=== PATIENT | female | born 1945 | race Caucasian/White ===

== ENCOUNTER 2020-01-20 12:54 | Outpatient (REF) | payer MEDICARE, OTHER, SELFPAY ==
[2020-01-20 14:24] LABS: Hemoglobin 12.5 g/dl (12.0-16.0); Mean Corpuscular HGB Conc 32.9 g/dl (31.0-35.0); Mean Corpuscular Hemoglobin 30.6 pg (27.0-33.0); Mean Corpuscular Volume 93.1 fL (80-98); Mean Platelet Volume 10.7 fL (9.4-12.3); Platelet Count 264 X10*3/uL (160-400); Red Blood Count 4.08 X10*6/uL (4.20-5.50); Red Cell Distribution Width 12.6 % (11.0-16.0); White Blood Count 7.8 X10*3/uL (4.8-10.8)
[2020-01-20 15:11] LABS: Alanine Aminotransferase 57 U/L (0-31); Albumin Level 4.2 g/dL (3.5-5.0); Alkaline Phosphatase 82 U/L (39-117); Anion Gap 17 (12-20); Aspartate Amino Transferase 42 U/L (5-31); Bilirubin Total 0.5 mg/dL (0.0-1.0); Blood Urea Nitrogen 21 mg/dL (9-16); Calcium 8.7 mg/dL (8.4-10.2); Carbon Dioxide 21 mmol/L (22-29); Chloride 109 mmol/L (96-108); Estimated Glomerular Filt Rate > 60; Glucose Random 96 mg/dL (60-115); Iron 77 mcg/dL (30-160); Percent Iron Saturation 17 % (15-50); Potassium 3.9 mmol/l (3.3-5.1); Sodium 143 mmol/L (135-145); Total Iron Binding Capacity 443 mcg/dL (228-428); Unsaturated Iron Binding 366 ug/dL
[2020-01-20 15:26] LABS: Thyroid Stimulating Hormone 1.29 uIU/mL (0.32-4.0)
[2020-01-23 12:52] LABS: Vitamin D 25-OH, D2 <4 ng/mL; Vitamin D 25-OH, D3 40 ng/mL; Vitamin D 25-OH, Total 40 ng/mL (30-100)
== END 2020-01-20 12:55 | disposition home or self-care (01) ==
LOC: HO.HMGCLDS 12:54
PROVIDERS: PCP Internal Medicine; Visit Provider Hospitalist
DX: L65.9 Nonscarring hair loss, unspecified (principal)
CPT/HCPCS: 36415; 80053; 82306; 83540; 84443; 85027

== ENCOUNTER 2020-05-05 09:24 | Outpatient (REF) | payer MEDICARE, OTHER, SELFPAY ==
[2020-05-05 11:31] LABS: Hematocrit 36.6 % (37-47); Hemoglobin 11.4 g/dl (12.0-16.0); Mean Corpuscular HGB Conc 31.1 g/dl (31.0-35.0); Mean Corpuscular Hemoglobin 28.4 pg (27.0-33.0); Mean Platelet Volume 10.7 fL (9.4-12.3); Platelet Count 286 X10*3/uL (160-400); Red Blood Count 4.02 X10*6/uL (4.20-5.50); Red Cell Distribution Width 13.3 % (11.0-16.0); White Blood Count 8.5 X10*3/uL (4.8-10.8)
[2020-05-05 12:19] LABS: TSH reflex Free T4 0.73 uIU/mL (0.32-4.0)
[2020-05-05 12:22] LABS: Alanine Aminotransferase 59 U/L (0-31); Albumin Level 4.1 g/dL (3.5-5.0); Alkaline Phosphatase 97 U/L (39-117); Aspartate Amino Transferase 31 U/L (5-31); Bilirubin Total 0.4 mg/dL (0.0-1.0); Blood Urea Nitrogen 11 mg/dL (9-16); Calcium 8.6 mg/dL (8.4-10.2); Estimated Glomerular Filt Rate > 60; Glucose Random 106 mg/dL (60-115)
[2020-05-05 12:35] LABS: Anion Gap 16 (12-20); Carbon Dioxide 26 mmol/L (22-29); Chloride 106 mmol/L (96-108); Sodium 145 mmol/L (135-145)
[2020-05-05 12:39] LABS: Erythrocyte Sedimentation Rate 11 MM/HR (0-20)
== END 2020-05-05 09:25 | disposition home or self-care (01) ==
LOC: HO.HMGCLDS 09:24
PROVIDERS: PCP Internal Medicine; Visit Provider Internal Medicine
DX: E03.9 Hypothyroidism, unspecified (principal); R19.7 Diarrhea, unspecified; K52.839 Microscopic colitis, unspecified; D68.2 Hereditary deficiency of other clotting factors; E78.5 Hyperlipidemia, unspecified; I10 Essential (primary) hypertension
CPT/HCPCS: 80053; 84443; 85027; 85652

== ENCOUNTER 2020-05-10 | Outpatient (REF) | payer MEDICARE, OTHER, SELFPAY ==
[2020-05-10 12:03] LABS: CDIFF Ag Negative (Negative); CDIFF Internal ctrl Dots and bkg OK (V); CDiff Toxin Negative (Negative)
== END 2020-05-10 00:01 | disposition home or self-care (01) ==
LOC: HO.HMGCLNP
PROVIDERS: Visit Provider Internal Medicine
DX: R19.7 Diarrhea, unspecified (principal); E03.9 Hypothyroidism, unspecified; K52.839 Microscopic colitis, unspecified; D68.2 Hereditary deficiency of other clotting factors; E78.5 Hyperlipidemia, unspecified; I10 Essential (primary) hypertension
CPT/HCPCS: 87324; 87449

== ENCOUNTER 2020-07-11 11:43 | Outpatient (REF) | payer MEDICARE, OTHER, SELFPAY ==
[2020-07-11 13:58] LABS: Hematocrit 40.2 % (37-47); Hemoglobin 12.7 g/dl (12.0-16.0); Mean Corpuscular HGB Conc 31.6 g/dl (31.0-35.0); Mean Corpuscular Hemoglobin 27.9 pg (27.0-33.0); Mean Corpuscular Volume 88.2 fL (80-98); Mean Platelet Volume 11.5 fL (9.4-12.3); Platelet Count 266 X10*3/uL (160-400); Red Blood Count 4.56 X10*6/uL (4.20-5.50); White Blood Count 10.2 X10*3/uL (4.8-10.8)
[2020-07-11 14:04] LABS: Estimated Average Glucose 123 mg/dL; Hemoglobin A1c % 5.9 %
[2020-07-11 14:18] LABS: Alanine Aminotransferase 51 U/L (0-31); Albumin Level 4.2 g/dL (3.5-5.0); Alkaline Phosphatase 79 U/L (39-117); Anion Gap 16 (12-20); Aspartate Amino Transferase 36 U/L (5-31); Bilirubin Total 0.7 mg/dL (0.0-1.0); Blood Urea Nitrogen 16 mg/dL (9-16); Calcium 9.3 mg/dL (8.4-10.2); Carbon Dioxide 24 mmol/L (22-29); Chloride 107 mmol/L (96-108); Cholesterol 164 mg/dL; Estimated Glomerular Filt Rate > 60; Glucose Fasting 104 mg/dL (60-99); HDL Cholesterol 74 mg/dL; LDL Cholesterol Calculated 67 mg/dl; Potassium 3.9 mmol/L (3.3-5.1); Sodium 143 mmol/L (135-145); Total Protein 6.8 g/dL (6.5-8.0); Triglycerides 115 mg/dL
[2020-07-11 14:42] LABS: TSH reflex Free T4 0.65 uIU/mL (0.32-4.0); Vitamin D 25-OH Total 34.3 ng/mL (>30)
[2020-07-11 14:47] LABS: Folate > 20.0 ng/mL (> or = 4.0); Vitamin B12 904 pg/mL (200-900)
== END 2020-07-11 11:44 | disposition home or self-care (01) ==
LOC: HO.HMGCLDS 11:43
PROVIDERS: PCP Internal Medicine; Visit Provider Internal Medicine
DX: R73.9 Hyperglycemia, unspecified (principal); E78.5 Hyperlipidemia, unspecified; I10 Essential (primary) hypertension; E03.9 Hypothyroidism, unspecified; R19.7 Diarrhea, unspecified; E55.9 Vitamin D deficiency, unspecified; E53.8 Deficiency of other specified B group vitamins
CPT/HCPCS: 36415; 80053; 80061; 82306; 82607; 82746; 83036; 84443; 85027

== ENCOUNTER 2020-09-07 08:59 | Outpatient (REF) | payer MEDICARE, OTHER, SELFPAY ==
[2020-09-07 11:35] LABS: Estimated Average Glucose 134 mg/dL; Hemoglobin A1c % 6.3 %
== END 2020-09-07 09:00 | disposition home or self-care (01) ==
LOC: HO.HMGCLDS 08:59
PROVIDERS: PCP Internal Medicine; Visit Provider Internal Medicine
DX: R73.9 Hyperglycemia, unspecified (principal)
CPT/HCPCS: 36415; 83036

== ENCOUNTER 2020-09-11 12:43 | Outpatient (REF) | payer MEDICARE, OTHER, SELFPAY ==
[2020-09-11 14:20] LABS: Alanine Aminotransferase 67 U/L (0-31); Albumin Level 4.1 g/dL (3.5-5.0); Alkaline Phosphatase 108 U/L (39-117); Anion Gap 14 (12-20); Aspartate Amino Transferase 52 U/L (5-31); Bilirubin Total 0.3 mg/dL (0.0-1.0); Blood Urea Nitrogen 26 mg/dL (9-16); Calcium 9.3 mg/dL (8.4-10.2); Carbon Dioxide 21 mmol/L (22-29); Chloride 112 mmol/L (96-108); Estimated Glomerular Filt Rate > 60; Glucose Fasting 114 mg/dL (60-99); Potassium 4.5 mmol/L (3.3-5.1); Sodium 142 mmol/L (135-145); Total Protein 6.8 g/dL (6.5-8.0)
== END 2020-09-11 12:44 | disposition home or self-care (01) ==
LOC: HO.HMGCLDS 12:43
PROVIDERS: PCP Internal Medicine; Visit Provider Internal Medicine
DX: E78.5 Hyperlipidemia, unspecified (principal); I10 Essential (primary) hypertension; R73.9 Hyperglycemia, unspecified
CPT/HCPCS: 36415; 80053

== ENCOUNTER 2021-01-11 08:19 | Outpatient (REF) | payer MEDICARE, OTHER, SELFPAY ==
[2021-01-11 11:25] LABS: Hemoglobin 12.6 g/dl (12.0-16.0); Mean Corpuscular HGB Conc 33.2 g/dl (31.0-35.0); Mean Corpuscular Hemoglobin 29.6 pg (27.0-33.0); Mean Corpuscular Volume 89.2 fL (80.0-98.0); Mean Platelet Volume 11.4 fL (9.4-12.3); Platelet Count 434 X10*3/uL (160-400); Red Blood Count 4.26 X10*6/uL (4.20-5.50); Red Cell Distribution Width 12.7 % (11.0-16.0); White Blood Count 10.8 X10*3/uL (4.8-10.8)
[2021-01-11 11:33] LABS: Estimated Average Glucose 120 mg/dL; Hemoglobin A1c % 5.8 %
[2021-01-11 11:41] LABS: Alanine Aminotransferase 44 U/L (0-31); Albumin Level 4.3 g/dL (3.5-5.0); Alkaline Phosphatase 116 U/L (39-117); Anion Gap 16 (12-20); Aspartate Amino Transferase 30 U/L (5-31); Bilirubin Total 0.4 mg/dL (0.0-1.0); Blood Urea Nitrogen 19 mg/dL (9-16); Calcium 9.4 mg/dL (8.4-10.2); Carbon Dioxide 21 mmol/L (22-29); Chloride 110 mmol/L (96-108); Cholesterol 158 mg/dL; Estimated Glomerular Filt Rate > 60; Glucose Fasting 133 mg/dL (60-99); HDL Cholesterol 72 mg/dL; LDL Cholesterol Calculated 70 mg/dl; Potassium 3.6 mmol/L (3.3-5.1); Sodium 143 mmol/L (135-145); Triglycerides 80 mg/dL
== END 2021-01-11 08:20 | disposition home or self-care (01) ==
LOC: HO.HMGCLDS 08:19
PROVIDERS: PCP Internal Medicine; Visit Provider Internal Medicine
DX: E78.5 Hyperlipidemia, unspecified (principal); I10 Essential (primary) hypertension; R73.9 Hyperglycemia, unspecified
CPT/HCPCS: 36415; 80053; 80061; 83036; 85027

== ENCOUNTER 2021-02-20 10:46 | Outpatient (REF) | payer MEDICARE, OTHER, SELFPAY ==
[2021-02-20 14:27] LABS: Anion Gap 13 (12-20); Blood Urea Nitrogen 27 mg/dL (9-16); Calcium 9.6 mg/dL (8.4-10.2); Carbon Dioxide 25 mmol/L (22-29); Chloride 107 mmol/L (96-108); Estimated Glomerular Filt Rate 57; Glucose Random 111 mg/dL (60-115); Potassium 4.4 mmol/L (3.3-5.1); Sodium 141 mmol/L (135-145)
== END 2021-02-20 10:47 | disposition home or self-care (01) ==
LOC: HO.HMGCLDS 10:46
PROVIDERS: PCP Internal Medicine; Visit Provider Internal Medicine
DX: I10 Essential (primary) hypertension (principal)
CPT/HCPCS: 36415; 80048

== ENCOUNTER 2021-05-07 08:17 | Outpatient (REF) | payer MEDICARE, OTHER, SELFPAY ==
[2021-05-07 11:40] LABS: Hematocrit 36.3 % (37.0-47.0); Hemoglobin 11.7 g/dl (12.0-16.0); Mean Corpuscular HGB Conc 32.2 g/dl (31.0-35.0); Mean Corpuscular Hemoglobin 29.7 pg (27.0-33.0); Mean Corpuscular Volume 92.1 fL (80.0-98.0); Mean Platelet Volume 11.8 fL (9.4-12.3); Platelet Count 201 X10*3/uL (160-400); Red Blood Count 3.94 X10*6/uL (4.20-5.50); Red Cell Distribution Width 12.5 % (11.0-16.0)
[2021-05-07 12:02] LABS: Alanine Aminotransferase 42 U/L (0-31); Alkaline Phosphatase 90 U/L (39-117); Anion Gap 13 (12-20); Aspartate Amino Transferase 40 U/L (5-31); Bilirubin Total 0.5 mg/dL (0.0-1.0); Blood Urea Nitrogen 19 mg/dL (9-16); Calcium 8.8 mg/dL (8.4-10.2); Carbon Dioxide 24 mmol/L (22-29); Chloride 109 mmol/L (96-108); Cholesterol 155 mg/dL; Estimated Glomerular Filt Rate > 60; Glucose Fasting 109 mg/dL (60-99); HDL Cholesterol 58 mg/dL; LDL Cholesterol Calculated 80 mg/dl; Potassium 4.8 mmol/L (3.3-5.1); Sodium 141 mmol/L (135-145); Total Protein 6.5 g/dL (6.5-8.0); Triglycerides 88 mg/dL
[2021-05-07 12:07] LABS: TSH reflex Free T4 0.58 uIU/mL (0.32-4.0)
[2021-05-07 12:18] LABS: Estimated Average Glucose 120 mg/dL; Hemoglobin A1c % 5.8 %
== END 2021-05-07 08:18 | disposition home or self-care (01) ==
LOC: HO.HMGCLDS 08:17
PROVIDERS: Visit Provider Internal Medicine
DX: E03.9 Hypothyroidism, unspecified (principal); R73.9 Hyperglycemia, unspecified; I10 Essential (primary) hypertension; E78.5 Hyperlipidemia, unspecified
CPT/HCPCS: 36415; 80053; 80061; 83036; 84443; 85027

== ENCOUNTER 2021-11-07 07:38 | Outpatient (REF) | payer MEDICARE, OTHER, SELFPAY ==
[2021-11-07 11:32] LABS: Hematocrit 36.4 % (37.0-47.0); Hemoglobin 12.2 g/dl (12.0-16.0); Mean Corpuscular HGB Conc 33.5 g/dl (31.0-35.0); Mean Corpuscular Hemoglobin 30.3 pg (27.0-33.0); Mean Corpuscular Volume 90.3 fL (80.0-98.0); Mean Platelet Volume 10.8 fL (9.4-12.3); Platelet Count 242 X10*3/uL (160-400); Red Blood Count 4.03 X10*6/uL (4.20-5.50); Red Cell Distribution Width 12.9 % (11.0-16.0); White Blood Count 6.8 X10*3/uL (4.8-10.8)
[2021-11-07 11:37] LABS: Estimated Average Glucose 114 mg/dL; Hemoglobin A1c % 5.6 %
[2021-11-07 11:46] LABS: Alanine Aminotransferase 47 U/L (0-31); Albumin Level 4.3 g/dL (3.5-5.0); Alkaline Phosphatase 79 U/L (39-117); Anion Gap 15 (12-20); Aspartate Amino Transferase 34 U/L (5-31); Bilirubin Total 0.4 mg/dL (0.0-1.0); Blood Urea Nitrogen 17 mg/dL (9-16); Calcium 8.7 mg/dL (8.4-10.2); Carbon Dioxide 22 mmol/L (22-29); Chloride 110 mmol/L (96-108); Cholesterol 163 mg/dL; Estimated Glomerular Filt Rate > 60; Glucose Fasting 120 mg/dL (60-99); HDL Cholesterol 59 mg/dL; LDL Cholesterol Calculated 69 mg/dl; Potassium 4.1 mmol/L (3.3-5.1); Sodium 143 mmol/L (135-145); Total Protein 6.9 g/dL (6.5-8.0); Triglycerides 175 mg/dL
[2021-11-07 12:08] LABS: Vitamin D 25-OH Total 36.2 ng/mL (>30)
== END 2021-11-07 07:39 | disposition home or self-care (01) ==
LOC: HO.HMGCLDS 07:38
PROVIDERS: PCP Internal Medicine; Visit Provider Internal Medicine
DX: E03.9 Hypothyroidism, unspecified (principal); E55.9 Vitamin D deficiency, unspecified; E78.5 Hyperlipidemia, unspecified; R73.9 Hyperglycemia, unspecified
CPT/HCPCS: 36415; 80053; 80061; 82306; 83036; 84443; 85027

== ENCOUNTER 2022-01-03 08:08 | Outpatient (REF) | payer MEDICARE, OTHER, SELFPAY ==
[2022-01-03 11:36] LABS: C Reactive Protein 0.06 mg/dL (< or = 0.50)
[2022-01-03 12:09] LABS: Erythrocyte Sedimentation Rate 7 MM/HR (0-20)
== END 2022-01-03 08:09 | disposition home or self-care (01) ==
LOC: HO.HMGCLDS 08:08
PROVIDERS: PCP Internal Medicine; Visit Provider Student in an Organized Health Care Education/Training Program
DX: M25.561 Pain in right knee (principal)
CPT/HCPCS: 36415; 85652; 86140

== ENCOUNTER 2022-01-10 12:39 | Outpatient (REF) | payer MEDICARE, OTHER, SELFPAY | END 2022-01-10 12:40 | disposition home or self-care (01) | LOC: HO.LAB 12:39 | DX: R30.0 Dysuria (principal) | CPT/HCPCS: 87086; 87088; 87186 ==

== ENCOUNTER 2022-03-07 08:05 | Outpatient (REF) | payer MEDICARE, OTHER, SELFPAY ==
[2022-03-07 11:21] LABS: MANUAL DIFF FLAG NO
[2022-03-07 11:37] LABS: Basophils Absolute Auto 0.1 X10*3/uL (0.0-0.2); Basophils Percent Auto 0.7 % (0-2); Eosinophils Absolute Auto 0.2 X10*3/uL (0.0-0.4); Eosinophils Percent Auto 3.2 % (0-4); Hematocrit 35.4 % (37.0-47.0); Hemoglobin 11.9 g/dl (12.0-16.0); Imm Gran Abs Auto 0.01 X10*3/uL (0.00-0.03); Imm Gran Pct Auto 0.1 % (0.0-0.4); Lymphocytes Absolute Auto 2.7 X10*3/uL (1.2-4.9); Lymphocytes Percent Auto 34.9 % (20-40); Mean Corpuscular HGB Conc 33.6 g/dl (31.0-35.0); Mean Corpuscular Hemoglobin 30.6 pg (27.0-33.0); Mean Platelet Volume 11.4 fL (9.4-12.3); Monocytes Absolute Auto 0.7 X10*3/uL (0.1-1.2); Monocytes Percent Auto 9.6 % (2-11); Neutrophils Absolute Auto 3.9 x10*3/uL (2.0-8.3); Neutrophils Percent Auto 51.5 % (45-73); Platelet Count 244 X10*3/uL (160-400); Red Blood Count 3.89 X10*6/uL (4.20-5.50); Red Cell Distribution Width 12.3 % (11.0-16.0); White Blood Count 7.6 X10*3/uL (4.8-10.8)
[2022-03-07 12:04] LABS: Alanine Aminotransferase 48 U/L (0-31); Albumin Level 4.3 g/dL (3.5-5.0); Alkaline Phosphatase 67 U/L (39-117); Anion Gap 15 (12-20); Aspartate Amino Transferase 36 U/L (5-31); Bilirubin Total 0.4 mg/dL (0.0-1.0); Blood Urea Nitrogen 25 mg/dL (9-16); Calcium 9.4 mg/dL (8.4-10.2); Carbon Dioxide 24 mmol/L (22-29); Chloride 107 mmol/L (96-108); Cholesterol 173 mg/dL; Estimated Glomerular Filt Rate 49; Glucose Fasting 121 mg/dL (60-99); HDL Cholesterol 61 mg/dL; LDL Cholesterol Calculated 89 mg/dl; Potassium 4.7 mmol/L (3.3-5.1); Sodium 141 mmol/L (135-145); Total Protein 6.9 g/dL (6.5-8.0); Triglycerides 116 mg/dL
[2022-03-07 12:31] LABS: Estimated Average Glucose 105 mg/dL; Hemoglobin A1c % 5.3 %
== END 2022-03-07 08:06 | disposition home or self-care (01) ==
LOC: HO.HMGCLDS 08:05
PROVIDERS: PCP Internal Medicine; Visit Provider Internal Medicine
DX: E03.9 Hypothyroidism, unspecified (principal); E78.5 Hyperlipidemia, unspecified; I10 Essential (primary) hypertension; R73.9 Hyperglycemia, unspecified
CPT/HCPCS: 36415; 80053; 80061; 83036; 85025

== ENCOUNTER 2022-04-04 08:35 | Outpatient (REF) | payer MEDICARE, OTHER, SELFPAY ==
[2022-04-04 12:07] LABS: Anion Gap 11 (12-20); Blood Urea Nitrogen 21 mg/dL (9-16); Calcium 9.1 mg/dL (8.4-10.2); Carbon Dioxide 24 mmol/L (22-29); Chloride 113 mmol/L (96-108); Estimated Glomerular Filt Rate 60; Glucose Random 111 mg/dL (60-115); Potassium 4.5 mmol/L (3.3-5.1); Sodium 143 mmol/L (135-145)
== END 2022-04-04 08:36 | disposition home or self-care (01) ==
LOC: HO.HMGCLDS 08:35
PROVIDERS: PCP Internal Medicine; Visit Provider Internal Medicine
DX: E53.8 Deficiency of other specified B group vitamins (principal); R73.9 Hyperglycemia, unspecified; E78.5 Hyperlipidemia, unspecified; I10 Essential (primary) hypertension
CPT/HCPCS: 36415; 80048

== ENCOUNTER 2022-06-07 09:00 | Outpatient (RCR) | payer MEDICARE, OTHER, SELFPAY | END 2022-08-13 09:24 | disposition home or self-care (01) | LOC: HO.PTCHIC 09:00 | PROVIDERS: PCP Internal Medicine; Visit Provider Student in an Organized Health Care Education/Training Program | DX: M17.11 Unilateral primary osteoarthritis, right knee (principal) | CPT/HCPCS: 97110; 97163 ==

== ENCOUNTER 2022-07-08 07:52 | Outpatient (REF) | payer MEDICARE, OTHER, SELFPAY ==
[2022-07-08 11:33] LABS: MANUAL DIFF FLAG NO
[2022-07-08 11:43] LABS: Basophils Absolute Auto 0.1 X10*3/uL (0.0-0.2); Basophils Percent Auto 0.8 % (0-2); Eosinophils Absolute Auto 0.2 X10*3/uL (0.0-0.4); Hematocrit 36.3 % (37.0-47.0); Imm Gran Abs Auto 0.02 X10*3/uL (0.00-0.03); Imm Gran Pct Auto 0.3 % (0.0-0.4); Lymphocytes Absolute Auto 3.2 X10*3/uL (1.2-4.9); Lymphocytes Percent Auto 43.5 % (20-40); Mean Corpuscular HGB Conc 33.1 g/dl (31.0-35.0); Mean Corpuscular Hemoglobin 30.5 pg (27.0-33.0); Mean Corpuscular Volume 92.4 fL (80.0-98.0); Mean Platelet Volume 11.4 fL (9.4-12.3); Monocytes Absolute Auto 0.7 X10*3/uL (0.1-1.2); Neutrophils Absolute Auto 3.1 x10*3/uL (2.0-8.3); Neutrophils Percent Auto 42.4 % (45-73); Platelet Count 248 X10*3/uL (160-400); Red Blood Count 3.93 X10*6/uL (4.20-5.50); Red Cell Distribution Width 12.7 % (11.0-16.0); White Blood Count 7.3 X10*3/uL (4.8-10.8)
[2022-07-08 11:55] LABS: Estimated Average Glucose 117 mg/dL; Hemoglobin A1c % 5.7 %
[2022-07-08 12:20] LABS: Alanine Aminotransferase 60 U/L (0-31); Albumin Level 4.1 g/dL (3.5-5.0); Alkaline Phosphatase 74 U/L (39-117); Anion Gap 10 (12-20); Aspartate Amino Transferase 52 U/L (5-31); Bilirubin Total 0.5 mg/dL (0.0-1.0); Blood Urea Nitrogen 23 mg/dL (9-16); Calcium 9.2 mg/dL (8.4-10.2); Carbon Dioxide 24 mmol/L (22-29); Chloride 112 mmol/L (96-108); Estimated Glomerular Filt Rate 60; Glucose Fasting 99 mg/dL (60-99); Iron 108 mcg/dL (30-160); Percent Iron Saturation 32 % (15-50); Potassium 4.3 mmol/L (3.3-5.1); Sodium 142 mmol/L (135-145); Total Iron Binding Capacity 334 mcg/dL (228-428); Total Protein 6.5 g/dL (6.5-8.0); Unsaturated Iron Binding 226 ug/dL
== END 2022-07-08 07:53 | disposition home or self-care (01) ==
LOC: HO.HMGCLDS 07:52
PROVIDERS: PCP Internal Medicine; Visit Provider Internal Medicine
DX: E03.9 Hypothyroidism, unspecified (principal); E53.8 Deficiency of other specified B group vitamins; E55.9 Vitamin D deficiency, unspecified; E78.5 Hyperlipidemia, unspecified; I10 Essential (primary) hypertension
CPT/HCPCS: 36415; 80053; 83036; 83540; 85025

== ENCOUNTER → 2022-07-11 11:56 | Outpatient (REF) | payer MEDICARE, OTHER, SELFPAY ==
--- NOTE | 2022-07-11 12:02 | ECG_ITS ---
Test Reason : PREOP Blood Pressure : / mmHG Vent. Rate : 080 BPM Atrial Rate : 080 BPM P-R Int : 174 ms QRS Dur : 068 ms QT Int : 378 ms P-R-T Axes : 057 004 033 degrees QTc Int : 435 ms Normal sinus rhythm Cannot exclude old Anterior infarct , age undetermined Abnormal ECG No previous ECGs available Referred By: Jia Parmar Electronically Signed By:ROHAN PETTY
== END ==
LOC: HO.CARD 11:56
PROVIDERS: PCP Internal Medicine; Visit Provider Internal Medicine
DX: M20.41 Other hammer toe(s) (acquired), right foot (principal)
CPT/HCPCS: 93005

== ENCOUNTER 2022-07-19 10:24 | Outpatient (REF) | payer MEDICARE, OTHER, SELFPAY ==
--- NOTE | ~2022-07-19 | US_ITS ---
EXAMINATION: US ABDOMEN LIMITED CLINICAL INFORMATION: Elevated LFTs. COMPARISON: None available. TECHNIQUE: Real-time imaging of the right upper quadrant abdominal viscera. FINDINGS: PANCREAS: Normal. LIVER: Normal. The liver is normal in size. The liver contour is normal. Parenchymal echogenicity is normal. No focal hepatic lesion. There is no intrahepatic biliary duct dilatation seen. GALLBLADDER: The gallbladder has been surgically removed. COMMON BILE DUCT: Normal in caliber measuring 1.0 cm in diameter. RIGHT KIDNEY: There is echogenic stones measuring 0.3 x 0.3 x 0.3 cm and lower pole without caliectasis. There are 2 anechoic cysts measuring 0.9 x 1.0 x 0.7 cm upper pole and 1.4 x 1.4 x 1.3 cm and lower pole. No caliectasis or hydronephrosis seen.. The kidney measures 8.4 cm in maximum dimension. FREE FLUID: None. US/US abdomen limited IMPRESSION: 1. Nonobstructive echogenic 3 mm stone lower pole and 2 anechoic cysts in the right kidney. No caliectasis or hydronephrosis seen. 2. The liver is unremarkable. 3. The gallbladder has been surgically removed.
== END 2022-07-19 10:25 | disposition home or self-care (01) ==
LOC: HO.HMGCX 10:24
PROVIDERS: PCP Internal Medicine; Visit Provider Internal Medicine
DX: R79.89 Other specified abnormal findings of blood chemistry (principal)
CPT/HCPCS: 76705

== ENCOUNTER 2023-01-08 07:36 | Outpatient (REF) | payer MEDICARE, OTHER, SELFPAY ==
[2023-01-08 11:21] LABS: MANUAL DIFF FLAG NO
[2023-01-08 11:29] LABS: Basophils Percent Auto 0.5 % (0-2); Eosinophils Absolute Auto 0.2 X10*3/uL (0.0-0.4); Eosinophils Percent Auto 3.3 % (0-4); Hematocrit 38.5 % (37.0-47.0); Hemoglobin 12.7 g/dl (12.0-16.0); Imm Gran Abs Auto 0.01 X10*3/uL (0.00-0.03); Imm Gran Pct Auto 0.2 % (0.0-0.4); Lymphocytes Absolute Auto 2.4 X10*3/uL (1.2-4.9); Lymphocytes Percent Auto 39.1 % (20-40); Mean Corpuscular Hemoglobin 29.7 pg (27.0-33.0); Mean Corpuscular Volume 90.2 fL (80.0-98.0); Mean Platelet Volume 11.3 fL (9.4-12.3); Monocytes Absolute Auto 0.6 X10*3/uL (0.1-1.2); Monocytes Percent Auto 9.4 % (2-11); Neutrophils Absolute Auto 2.9 x10*3/uL (2.0-8.3); Neutrophils Percent Auto 47.5 % (45-73); Platelet Count 235 X10*3/uL (160-400); Red Blood Count 4.27 X10*6/uL (4.20-5.50)
[2023-01-08 11:40] LABS: Estimated Average Glucose 111 mg/dL; Hemoglobin A1c % 5.5 % (<6.0)
[2023-01-08 11:59] LABS: Alanine Aminotransferase 54 U/L (0-31); Albumin Level 4.2 g/dL (3.5-5.0); Alkaline Phosphatase 73 U/L (39-117); Anion Gap 13 (12-20); Aspartate Amino Transferase 44 U/L (5-31); Bilirubin Total 0.4 mg/dL (0.0-1.0); Blood Urea Nitrogen 23 mg/dL (9-16); Calcium 9.2 mg/dL (8.4-10.2); Carbon Dioxide 23 mmol/L (22-29); Chloride 111 mmol/L (96-108); Cholesterol 183 mg/dL (<200); Estimated Glomerular Filt Rate 50; Glucose Fasting 121 mg/dL (60-99); HDL Cholesterol 61 mg/dL (>40); LDL Cholesterol Calculated 95 mg/dL (<100); Potassium 4.1 mmol/L (3.3-5.1); Sodium 143 mmol/L (135-145); Total Protein 7.2 g/dL (6.5-8.0); Triglycerides 136 mg/dL (<150)
[2023-01-08 12:06] LABS: HBS Num1 67.84 mIU/mL (0-7.99); HBsAGNum1 0.33 S/CO (0.00-0.99); Hepatitis B Core Antibody Nonreactive (Nonreactive); Hepatitis B Surface Antigen Negative (Negative); ~HepC Num1 0.05 S/CO (0.00-0.79); ~Hepatitis B Surface Antibody REACTIVE (Nonreactive); ~Hepatitis C Antibody Nonreactive (Nonreactive)
[2023-01-08 12:07] LABS: TSH reflex Free T4 0.88 uIU/mL (0.32-4.0); Vitamin B12 833 pg/mL (200-900); Vitamin D 25-OH Total 53.4 ng/mL (>30)
== END 2023-01-08 07:37 | disposition home or self-care (01) ==
LOC: HO.HMGCLDS 07:36
PROVIDERS: PCP Internal Medicine; Visit Provider Internal Medicine
DX: R79.89 Other specified abnormal findings of blood chemistry (principal); E53.8 Deficiency of other specified B group vitamins; E03.9 Hypothyroidism, unspecified; E55.9 Vitamin D deficiency, unspecified; Z11.59 Encounter for screening for other viral diseases; Z72.89 Other problems related to lifestyle
CPT/HCPCS: 36415; 80053; 80061; 82306; 82607; 83036; 84443; 85025; 86704; 86706; 86803; 87340

== ENCOUNTER 2023-01-10 09:00 | Outpatient (AMB) | payer MEDICARE, OTHER, SELFPAY ==
--- NOTE | 2023-01-10 09:02 | MHC.PC.OV ---
Vital Signs 01/10/23 09:05 Height 5 ft Weight 124 lb BMI 24.2 BP 140/85 H Blood Pressure Location Rt brachial Position Sitting Pulse 85 Pulse Source Pulse Oximeter Pulse Oximetry (%) 97 Oxygen Delivery Method Room Air Intake Visit Reasons: 6m follow up Intake Note: Pt is here today for her 6 months f/u Allergies cephalexin [CEPHALEXIN] Allergy (Severe, Verified 01/10/23 09:06) ANAPHYLAXIS nitrofurantoin [From MACRODANTIN] Allergy (Severe, Verified 01/10/23 09:06) ANAPHYLAXIS albuterol [ALBUTEROL] Allergy (Intermediate, Verified 01/10/23 09:06) ITCHING Sulfa (Sulfonamide Antibiotics) [SULFA (SULFONAMIDE ANTIBIOTICS)] Allergy (Intermediate, Verified 01/10/23 09:06) ITCHING acetaminophen [Percocet] Allergy (Unknown, Verified 01/10/23 09:06) itchy amoxicillin Allergy (Unknown, Verified 01/10/23 09:06) itchy and diarrhea doxycycline Allergy (Unknown, Verified 01/10/23 09:06) itchy gluten [GLUTEN] Allergy (Unknown, Verified 01/10/23 09:06) Ciliac disease indomethacin [Indocin] Allergy (Unknown, Verified 01/10/23 09:06) n/a lactose Allergy (Unknown, Verified 01/10/23 09:06) severe diarrhea latex Allergy (Unknown, Verified 01/10/23 09:06) itchy rash oxycodone [Percocet] Allergy (Unknown, Verified 01/10/23 09:06) itchy DAIRY PRODUCTS Allergy (Unknown, Uncoded 01/10/23 09:06) severe diarrhea ventolin tabs Allergy (Unknown, Uncoded 01/10/23 09:06) unknown Medication List - Last Reconciled 01/10/23 by Jia Parmar MD amlodipine 5 mg PO BID apixaban (Eliquis) 5 mg PO BID blood sugar diagnostic As directed cefpodoxime 200 mg PO .QD cyanocobalamin (vitamin B-12) 1,000 mcg IM Q4W gabapentin 600 mg PO TID insulin syringe-needle U-100 (BD Insulin Syringe) use for monthly injections lancets (Accu-Chek Fastclix Lancet Drum) Test blood sugar once a day latanoprost 0.005% 1 drp ophthalmic (eye) BEDTIME levothyroxine 50 mcg PO DAILY loperamide 2 mg PO BID PRN metoprolol succinate ER 25 mg PO DAILY omeprazole 40 mg PO BID rosuvastatin 5 mg PO DAILY syringe with needle As directed syringe with needle, safety Use to inject B12 monthly timolol maleate 0.5% 1 drp ophthalmic (eye) QAM vancomycin mg PO Tobacco use date assessed: 01/10/23 Fall risk assessment: 1 Fall in past year Last assessed Fall Risk: 01/10/23 Dental Screening Dental Screen Date: 01/10/23 Did you have a dental visit in the last 12 months?: Yes Did you have a dental problem in the last 6 months where you did not have access to dental care?: No Was dental information given to patient?: Patient has dentist HPI 6m follow up HPI Details Pt presents for HTN, hyperlipid, hypothyroid, osteoporosis, stable on meds. [facility] Medical History Annual physical exam Chronic infection of knee joint prosthesis Colitis without complication Degenerative joint disease (DJD) of lumbar spine Depression Diarrhea Factor V deficiency GERD (gastroesophageal reflux disease) HTN (hypertension) Hyperglycemia Hyperlipidemia Hypothyroidism Knee pain Microscopic colitis Minor skin laceration Normal Pap smear Osteopenia Vitamin B 12 deficiency Vitamin D deficiency Surgical History H/O cervical spine surgery History of lumbar surgery History of carpal tunnel syndrome History of knee replacement History of vagotomy History of total abdominal hysterectomy and bilateral salpingo-oophorectomy Family History (Updated 07/09/22 @ 14:18 by Susi Curran [facility]) Father Bladder cancer Mother Hypertension Social History Housing: House Alcohol intake: never Patient Tobacco Use Status: Never used Tobacco e-Cigarette/Vaping Use: Never Used Current occupational status: retired Cognitive needs: No Hearing needs: No Vision needs: Yes Questionnaire Thrive Questionnaire Date Thrive assessed: 03/11/22 ROSALINDA-7 AMB Questionnaire ROSALINDA-7 Date ROSALINDA - 7 assessed: 03/11/22 Source: Developed by Drs. Andrew Pompa, Tasha Barnard, Jonathan Minor and colleagues, with an educational farooq from [employer]. Review of Systems Const All systems reviewed & are unremarkable except as noted in HPI and below Reports no additional complaints Eyes Reports no additional complaints ENT Reports no additional complaints Card Reports no additional complaints Resp Reports no additional complaints GI Reports no additional complaints Musc Reports no additional complaints Physical exam (Primary Care) Vital Signs: Last Vital Signs Pulse 67 01/10/23 09:05 BP 110/70 01/10/23 09:05 Pulse Ox 97 01/10/23 09:05 Oxygen Delivery Method Room Air 01/10/23 09:05 BMI result Body Mass Index 24.2 Tobacco/Smoking Status: Tobacco use Status Tobacco use date assessed 01/10/23 01/10/23 09:09 Patient Tobacco Use Status Never used Tobacco 01/10/23 09:02 e-Cigarette/Vaping Use Never Used 01/10/23 09:02 Thrive Assessment: Date of Thrive Assessment Date Thrive assessed 03/11/22 01/10/23 09:02 Const General: no acute distress HENMT Head: Yes normal to inspection Ears: hearing grossly normal bilaterally Eyes General: appearance normal, both eyes and all related structures Neck Neck: Yes supple Resp Effort & Inspection: normal respiratory effort Auscultation: clear to auscultation bilaterally Cardio Rhythm: regular rhythm Heart sounds: S1 normal heart sound present and S2 normal heart sound present GI Inspection: Yes normal to inspection Palpation (GI): Soft to palpation Percussion: Yes normal to percussion Auscultation: normal bowel sounds Assessment and Plan Assessment & Plan (1) HTN (hypertension): Code(s): I10 - Essential (primary) hypertension Plan: increase Metoprolol to 50 mg and recheck BP in 2 weeks, f/u 3 months (2) Hyperglycemia: Comment: Diet-controlled Code(s): R73.9 - Hyperglycemia, unspecified Plan: A1C is 5.4, cont ADA diet (3) Hyperlipidemia: Code(s): E78.5 - Hyperlipidemia, unspecified Plan: cont statin (4) Hypothyroidism: Comment: f/u Code(s): E03.9 - Hypothyroidism, unspecified Plan: cont Levothyroxine Medications: Changed From metoprolol succinate ER 25 mg PO DAILY 90 tabs 3RF To metoprolol succinate ER 50 mg (2 x 25 mg) PO DAILY 90 tabs 3RF Coding Level of Care Code Est Pt Level 4 (34853) Diagnoses HTN (hypertension) I10 Hyperglycemia R73.9 Hyperlipidemia E78.5 Hypothyroidism E03.9
[2023-01-10 09:05] VITALS: BP 140/85; PULSE 85; O2SAT 97; BMI 24.2
== END 2023-01-10 10:02 | disposition home or self-care (01) ==
PROVIDERS: Visit Provider Internal Medicine
DX: I10 Essential (primary) hypertension (principal); R73.9 Hyperglycemia, unspecified; E78.5 Hyperlipidemia, unspecified; E03.9 Hypothyroidism, unspecified
CPT/HCPCS: 99214

== ENCOUNTER 2023-02-18 11:18 | Outpatient (AMB) | payer MEDICARE, OTHER, SELFPAY ==
[2023-02-18 11:37] VITALS: BP 140/74; PULSE 73; O2SAT 95; BMI 24.8
--- NOTE | 2023-02-18 11:37 | MHC.PC.OV ---
Vital Signs 02/18/23 11:37 Height 5 ft Weight 127 lb BMI 24.8 BP 140/74 H Blood Pressure Location Lt brachial Position Sitting Pulse 73 Pulse Source Pulse Oximeter Pulse Oximetry (%) 95 Oxygen Delivery Method Room Air Intake Visit Reasons: 1 Month F/U Intake Note: Pt is here today for 1 month follow up visit. Allergies cephalexin [CEPHALEXIN] Allergy (Severe, Verified 02/18/23 11:38) ANAPHYLAXIS nitrofurantoin [From MACRODANTIN] Allergy (Severe, Verified 02/18/23 11:38) ANAPHYLAXIS albuterol [ALBUTEROL] Allergy (Intermediate, Verified 02/18/23 11:38) ITCHING Sulfa (Sulfonamide Antibiotics) [SULFA (SULFONAMIDE ANTIBIOTICS)] Allergy (Intermediate, Verified 02/18/23 11:38) ITCHING acetaminophen [Percocet] Allergy (Unknown, Verified 02/18/23 11:38) itchy amoxicillin Allergy (Unknown, Verified 02/18/23 11:38) itchy and diarrhea doxycycline Allergy (Unknown, Verified 02/18/23 11:38) itchy gluten [GLUTEN] Allergy (Unknown, Verified 02/18/23 11:38) Ciliac disease indomethacin [Indocin] Allergy (Unknown, Verified 02/18/23 11:38) n/a lactose Allergy (Unknown, Verified 02/18/23 11:38) severe diarrhea latex Allergy (Unknown, Verified 02/18/23 11:38) itchy rash oxycodone [Percocet] Allergy (Unknown, Verified 02/18/23 11:38) itchy DAIRY PRODUCTS Allergy (Unknown, Uncoded 02/18/23 11:38) severe diarrhea ventolin tabs Allergy (Unknown, Uncoded 02/18/23 11:38) unknown Medication List - Last Reconciled 02/18/23 by Jia Parmar MD amlodipine 5 mg PO BID apixaban (Eliquis) 5 mg PO BID blood sugar diagnostic As directed cefpodoxime 200 mg PO .QD cyanocobalamin (vitamin B-12) 1,000 mcg IM Q4W gabapentin 600 mg PO TID insulin syringe-needle U-100 (BD Insulin Syringe) use for monthly injections lancets (Accu-Chek Fastclix Lancet Drum) Test blood sugar once a day latanoprost 0.005% 1 drp ophthalmic (eye) BEDTIME levothyroxine 50 mcg PO DAILY loperamide 2 mg PO BID PRN metoprolol succinate ER 50 mg (2 x 25 mg) PO DAILY omeprazole 40 mg PO BID rosuvastatin 5 mg PO DAILY syringe with needle As directed syringe with needle, safety Use to inject B12 monthly timolol maleate 0.5% 1 drp ophthalmic (eye) QAM trazodone 50 mg PO BEDTIME PRN vancomycin mg PO Tobacco use date assessed: 01/10/23 HPI 1 Month F/U HPI Details Patient presents for the follow-up on hypertension and hyperlipidemia. She has been under lot of stress related to her 's COPD getting worse and he requires 24 hours supplemental O2. He has been less physically active at home. [facility] Medical History Annual physical exam Chronic infection of knee joint prosthesis Colitis without complication Degenerative joint disease (DJD) of lumbar spine Depression Diarrhea Factor V deficiency GERD (gastroesophageal reflux disease) HTN (hypertension) Hyperglycemia Hyperlipidemia Hypothyroidism Knee pain Microscopic colitis Minor skin laceration Normal Pap smear Osteopenia Vitamin B 12 deficiency Vitamin D deficiency Surgical History H/O cervical spine surgery History of lumbar surgery History of carpal tunnel syndrome History of knee replacement History of vagotomy History of total abdominal hysterectomy and bilateral salpingo-oophorectomy Family History (Updated 07/09/22 @ 14:18 by Susi Curran [facility]) Father Bladder cancer Mother Hypertension Social History Housing: House Alcohol intake: never Patient Tobacco Use Status: Never used Tobacco e-Cigarette/Vaping Use: Never Used Current occupational status: retired Cognitive needs: No Hearing needs: No Vision needs: Yes Questionnaire Thrive Questionnaire Date Thrive assessed: 03/11/22 ROSALINDA-7 AMB Questionnaire ROSALINDA-7 Date ROSALINDA - 7 assessed: 03/11/22 Source: Developed by Drs. Andrew Pompa, Tasha Barnard, Jonathan Minor and colleagues, with an educational farooq from [employer] Review of Systems Const All systems reviewed & are unremarkable except as noted in HPI and below Reports no additional complaints Eyes Reports no additional complaints ENT Reports no additional complaints Card Reports no additional complaints Resp Reports no additional complaints GI Reports no additional complaints Reports no additional complaints Physical exam (Primary Care) Vital Signs: Last Vital Signs Pulse 73 02/18/23 11:37 BP 164/74 H 02/18/23 11:37 Pulse Ox 95 02/18/23 11:37 Oxygen Delivery Method Room Air 02/18/23 11:37 BMI result Body Mass Index 24.8 Tobacco/Smoking Status: Tobacco use Status Tobacco use date assessed 01/10/23 02/18/23 11:38 Patient Tobacco Use Status Never used Tobacco 02/18/23 11:38 e-Cigarette/Vaping Use Never Used 02/18/23 11:38 Thrive Assessment: Date of Thrive Assessment Date Thrive assessed 03/11/22 02/18/23 11:38 Const General: no acute distress HENMT Head: Yes normal to inspection Eyes General: appearance normal, both eyes and all related structures Neck Neck: Yes supple Resp Effort & Inspection: normal respiratory effort Auscultation: clear to auscultation bilaterally Cardio Rhythm: regular rhythm Heart sounds: S1 normal heart sound present and S2 normal heart sound present Assessment and Plan Assessment & Plan (1) HTN (hypertension): Code(s): I10 - Essential (primary) hypertension Plan: Add 5 mg of olmesartan to current medications, low-sodium diet regular physical activity discussed with the patient. Follow-up in 6 weeks check basic metabolic panel in 2 weeks (2) Insomnia: Code(s): G47.00 - Insomnia, unspecified Plan: Stress management discussed with the patient. Trazodone 50 mg q.h.s. as needed is prescribed Orders: Orders Basic Metabolic Panel 2 Weeks G47.00 - Insomnia, unspecified, I10 - Essential (primary) hypertension Medications: New olmesartan 5 mg PO DAILY 90 tabs 0RF trazodone 50 mg PO BEDTIME PRN 30 tabs 2RF sleep Coding Level of Care Code Est Pt Level 4 (19814) Diagnoses HTN (hypertension) I10 Insomnia G47.00
== END 2023-02-18 12:38 | disposition home or self-care (01) ==
PROVIDERS: PCP Internal Medicine; Visit Provider Internal Medicine
DX: I10 Essential (primary) hypertension (principal); G47.00 Insomnia, unspecified
CPT/HCPCS: 99214

== ENCOUNTER 2023-03-31 10:19 | Outpatient (REF) | payer MEDICARE, OTHER, SELFPAY ==
[2023-03-31 13:57] LABS: Anion Gap 15 (12-20); Blood Urea Nitrogen 21 mg/dL (9-16); Calcium 9.6 mg/dL (8.4-10.2); Carbon Dioxide 23 mmol/L (22-29); Chloride 108 mmol/L (96-108); Estimated Glomerular Filt Rate 48; Glucose Random 118 mg/dL (60-115); Potassium 4.7 mmol/L (3.3-5.1); Sodium 141 mmol/L (135-145)
== END 2023-03-31 10:20 | disposition home or self-care (01) ==
LOC: HO.HMGCLDS 10:19
PROVIDERS: PCP Internal Medicine; Visit Provider Internal Medicine
DX: I10 Essential (primary) hypertension (principal)
CPT/HCPCS: 36415; 80048

== ENCOUNTER 2023-04-01 10:07 | Outpatient (AMB) | payer MEDICARE, OTHER, SELFPAY ==
[2023-04-01 10:24] VITALS: BP 140/80; PULSE 72; O2SAT 95; BMI 24.2
--- NOTE | 2023-04-01 10:24 | MHC.PC.OV ---
Vital Signs 04/01/23 10:24 Height 5 ft Weight 124 lb BMI 24.2 BP 140/80 H Blood Pressure Location Rt brachial Position Sitting Pulse 72 Pulse Source Pulse Oximeter Pulse Oximetry (%) 95 Oxygen Delivery Method Room Air Intake Visit Reasons: 6 Week F/U Intake Note: Pt is here today for 6 weeks follow up visit on labs and BP. Allergies cephalexin [CEPHALEXIN] Allergy (Severe, Verified 04/01/23 10:30) ANAPHYLAXIS nitrofurantoin [From MACRODANTIN] Allergy (Severe, Verified 04/01/23 10:30) ANAPHYLAXIS albuterol [ALBUTEROL] Allergy (Intermediate, Verified 04/01/23 10:30) ITCHING Sulfa (Sulfonamide Antibiotics) [SULFA (SULFONAMIDE ANTIBIOTICS)] Allergy (Intermediate, Verified 04/01/23 10:30) ITCHING acetaminophen [Percocet] Allergy (Unknown, Verified 04/01/23 10:30) itchy amoxicillin Allergy (Unknown, Verified 04/01/23 10:30) itchy and diarrhea doxycycline Allergy (Unknown, Verified 04/01/23 10:30) itchy gluten [GLUTEN] Allergy (Unknown, Verified 04/01/23 10:30) Ciliac disease indomethacin [Indocin] Allergy (Unknown, Verified 04/01/23 10:30) n/a lactose Allergy (Unknown, Verified 04/01/23 10:30) severe diarrhea latex Allergy (Unknown, Verified 04/01/23 10:30) itchy rash oxycodone [Percocet] Allergy (Unknown, Verified 04/01/23 10:30) itchy olmesartan Adverse Reaction (Intermediate, Verified 04/01/23 10:30) diarrhea DAIRY PRODUCTS Allergy (Unknown, Uncoded 04/01/23 10:30) severe diarrhea ventolin tabs Allergy (Unknown, Uncoded 04/01/23 10:30) unknown Medication List - Last Reconciled 04/01/23 by Jia Parmar MD amlodipine 5 mg PO BID apixaban (Eliquis) 5 mg PO BID blood sugar diagnostic As directed cefpodoxime 200 mg PO .QD cyanocobalamin (vitamin B-12) 1,000 mcg IM Q4W gabapentin 600 mg PO TID insulin syringe-needle U-100 (BD Insulin Syringe) use for monthly injections lancets (Accu-Chek Fastclix Lancet Drum) Test blood sugar once a day latanoprost 0.005% 1 drp ophthalmic (eye) BEDTIME levothyroxine 50 mcg PO DAILY loperamide 2 mg PO BID PRN metoprolol succinate ER 50 mg (2 x 25 mg) PO DAILY omeprazole 40 mg PO BID rosuvastatin 5 mg PO DAILY spironolactone 25 mg PO DAILY syringe with needle As directed syringe with needle, safety Use to inject B12 monthly timolol maleate 0.5% 1 drp ophthalmic (eye) QAM trazodone 50 mg PO BEDTIME PRN vancomycin mg PO Tobacco use date assessed: 04/01/23 Fall risk assessment: No Falls in past year Last assessed Fall Risk: 04/01/23 Dental Screening Dental Screen Date: 04/01/23 Did you have a dental visit in the last 12 months?: Yes Did you have a dental problem in the last 6 months where you did not have access to dental care?: No Was dental information given to patient?: Patient has dentist HPI 6 Week F/U HPI Details PATIENT PRESENTS FOR THE FOLLOW-UP ON HYPERTENSION. SHE HAS BEEN TOLERATING A HALF A TABLET OF SPIRONOLACTONE. [facility] Medical History Osteopenia Minor skin laceration Annual physical exam Vitamin B 12 deficiency Vitamin D deficiency Chronic infection of knee joint prosthesis Diarrhea Knee pain Hypothyroidism Normal Pap smear Degenerative joint disease (DJD) of lumbar spine Microscopic colitis GERD (gastroesophageal reflux disease) Factor V deficiency Depression Colitis without complication Hyperglycemia Hyperlipidemia HTN (hypertension) Surgical History H/O cervical spine surgery History of lumbar surgery History of carpal tunnel syndrome History of knee replacement History of vagotomy History of total abdominal hysterectomy and bilateral salpingo-oophorectomy Family History Father Bladder cancer Mother Hypertension Social History Housing: House Alcohol intake: never Patient Tobacco Use Status: Never used Tobacco e-Cigarette/Vaping Use: Never Used Current occupational status: retired Cognitive needs: No Hearing needs: No Vision needs: Yes Questionnaire PHQ-9 Over the last 2 weeks, how often have you been bothered by any of the following problems? 1. Little interest or pleasure in doing things: not at all 2. Feeling down, depressed, or hopeless: not at all 3. Trouble falling or staying asleep, or sleeping too much: several days 4. Feeling tired or having little energy: not at all 5. Poor appetite or overeating: not at all 6. Feeling bad about yourself - or that you are a failure or have let yourself or your family down: not at all 7. Trouble concentrating on things, such as reading the newspaper or watching television: not at all 8. Moving or speaking so slowly that other people could have noticed. Or the opposite - being so fidgety or restless that you have been moving around a lot more than usual: not at all 9. Thoughts that you would be better off or of hurting yourself in some way: not at all Total score: 1 Depression Screening Interpretation: Negative Depression Screening Done: Yes Source: Developed by Drs. Andrew Pompa, Tasha Barnard, Jonathan Minor and colleagues, with an educational farooq from [employer]. Thrive Questionnaire Date Thrive assessed: 04/01/23 I am a: Patient What is your living situation today?: I have a steady place to live Within the past 12 months, did the food you bought not last and you didn't have the money to get more?: Never true Within the past 12 months, did you worry whether your food would run out before you got money to buy more?: Never true Do you have trouble paying for medicines?: No Do you have trouble getting transportation to medical appointments?: No Do you have trouble paying your heating and electricity bill?: No Do you have trouble taking care of your child, family member or friend?: No Do you have trouble with day-to-day activities such as bathing, preparing meals, shopping, managing finances, etc.?: No Are you currently unemployed and looking for a job?: No Are you interested in more education?: No Please select the resources that you would like help with: None Currently or been in a relationship where the following occur: no concerns reported THRIVE Score: 0 AUDIT C Alcohol Use Questionnaire (AUDIT-C) 1. How often do you have a drink containing alcohol?: Never 3. How often do you have six or more drinks on one occasion?: Never Total Score: 0 ROSALINDA-7 AMB Questionnaire ROSALINDA-7 Date ROSALINDA - 7 assessed: 04/01/23 Feeling nervous, anxious, or on edge: 0 = Not at all Not being able to stop or control worryin = Not at all Worrying too much about different things: 0 = Not at all Trouble relaxin = Not at all Being so restless that it is hard to sit still: 0 = Not at all Becoming easily annoyed or irritable: 0 = Not at all Feeling afraid as if something awful might happen: 0 = Not at all Total ROSALINDA-7 score (0-4 normal; 5-9 mild; 10-14 moderate; 15-21 severe): 0 Source: Developed by Drs. Andrew Pompa, Tasha Barnard, Jonathan Minor and colleagues, with an educational farooq from [employer]. Review of Systems Const All systems reviewed & are unremarkable except as noted in HPI and below Reports no additional complaints Eyes Reports no additional complaints ENT Reports no additional complaints Card Reports no additional complaints Resp Reports no additional complaints GI Reports no additional complaints Reports no additional complaints Physical exam (Primary Care) Vital Signs: Last Vital Signs Pulse 72 04/01/23 10:24 BP 162/80 H 04/01/23 10:24 Pulse Ox 95 04/01/23 10:24 Oxygen Delivery Method Room Air 04/01/23 10:24 BMI result Body Mass Index 24.2 Tobacco/Smoking Status: Tobacco use Status Tobacco use date assessed 04/01/23 04/01/23 10:31 Patient Tobacco Use Status Never used Tobacco 04/01/23 10:31 e-Cigarette/Vaping Use Never Used 04/01/23 10:24 PHQ-9: PHQ-9 Score PHQ-9: Total score 1 04/01/23 10:40 Depression Screening Interpretation: Negative Thrive Assessment: Date of Thrive Assessment Date Thrive assessed 04/01/23 04/01/23 10:40 Currently or been in a relationship where the following occur: no concerns reported Const General: no acute distress [facility] General nose exam: Normal external nose present Eyes General: appearance normal, both eyes and all related structures Neck Neck: Yes no lymphadenopathy and Yes supple Resp Effort & Inspection: normal respiratory effort Auscultation: clear to auscultation bilaterally Cardio Rhythm: regular rhythm Heart sounds: S1 normal heart sound present and S2 normal heart sound present Assessment and Plan Assessment & Plan (1) HTN (hypertension): Code(s): I10 - Essential (primary) hypertension Plan: Continue amlodipine metoprolol and increase spironolactone to 25 mg, check BMP in 1 week, follow-up in 6 weeks Orders: Orders Basic Metabolic Panel 1 Week I10 - Essential (primary) hypertension Medications: Changed From spironolactone 12.5 mg (1/2 x 25 mg) PO DAILY 30 tabs 0RF To spironolactone 25 mg PO DAILY 90 tabs 0RF Discontinued olmesartan Discontinued Reason: Doctor's Order 5 mg PO DAILY 90 tabs 0RF Coding Level of Care Code Est Pt Level 3 (96367) Diagnoses HTN (hypertension) I10
== END 2023-04-01 11:34 | disposition home or self-care (01) ==
PROVIDERS: PCP Internal Medicine; Visit Provider Internal Medicine
DX: I10 Essential (primary) hypertension (principal)
CPT/HCPCS: 99213

== ENCOUNTER 2023-04-11 10:37 | Outpatient (REF) | payer MEDICARE, OTHER, SELFPAY ==
[2023-04-11 14:03] LABS: Anion Gap 13 (12-20); Blood Urea Nitrogen 21 mg/dL (9-16); Calcium 9.5 mg/dL (8.4-10.2); Carbon Dioxide 21 mmol/L (22-29); Chloride 109 mmol/L (96-108); Estimated Glomerular Filt Rate 46; Glucose Random 105 mg/dL (60-115); Potassium 4.8 mmol/L (3.3-5.1); Sodium 138 mmol/L (135-145)
== END 2023-04-11 10:38 | disposition home or self-care (01) ==
LOC: HO.HMGCLDS 10:37
PROVIDERS: PCP Internal Medicine; Visit Provider Internal Medicine
DX: I10 Essential (primary) hypertension (principal)
CPT/HCPCS: 36415; 80048

== ENCOUNTER 2023-05-14 10:17 | Outpatient (AMB) | payer MEDICARE, OTHER, SELFPAY ==
[2023-05-14 10:31] VITALS: BP 126/72; PULSE 68; O2SAT 95; BMI 23.8
--- NOTE | 2023-05-14 10:31 | MHC.PC.OV ---
Vital Signs 05/14/23 10:31 Height 5 ft Weight 122 lb BMI 23.8 BP 126/72 Blood Pressure Location Lt brachial Position Sitting Pulse 68 Pulse Source Pulse Oximeter Pulse Oximetry (%) 95 Oxygen Delivery Method Room Air Intake Visit Reasons: 6 week follow up Intake Note: Pt is here today for 6 weeks follow up visit. Allergies cephalexin [CEPHALEXIN] Allergy (Severe, Verified 05/14/23 10:50) ANAPHYLAXIS nitrofurantoin [From MACRODANTIN] Allergy (Severe, Verified 05/14/23 10:50) ANAPHYLAXIS albuterol [ALBUTEROL] Allergy (Intermediate, Verified 05/14/23 10:50) ITCHING Sulfa (Sulfonamide Antibiotics) [SULFA (SULFONAMIDE ANTIBIOTICS)] Allergy (Intermediate, Verified 05/14/23 10:50) ITCHING acetaminophen [Percocet] Allergy (Unknown, Verified 05/14/23 10:50) itchy amoxicillin Allergy (Unknown, Verified 05/14/23 10:50) itchy and diarrhea doxycycline Allergy (Unknown, Verified 05/14/23 10:50) itchy gluten [GLUTEN] Allergy (Unknown, Verified 05/14/23 10:50) Ciliac disease indomethacin [Indocin] Allergy (Unknown, Verified 05/14/23 10:50) n/a lactose Allergy (Unknown, Verified 05/14/23 10:50) severe diarrhea latex Allergy (Unknown, Verified 05/14/23 10:50) itchy rash oxycodone [Percocet] Allergy (Unknown, Verified 05/14/23 10:50) itchy olmesartan Adverse Reaction (Intermediate, Verified 05/14/23 10:50) diarrhea DAIRY PRODUCTS Allergy (Unknown, Uncoded 05/14/23 10:50) severe diarrhea ventolin tabs Allergy (Unknown, Uncoded 05/14/23 10:50) unknown Medication List - Last Reconciled 05/14/23 by Jia Parmar MD amlodipine 5 mg PO BID apixaban (Eliquis) 5 mg PO BID blood sugar diagnostic As directed cefpodoxime 200 mg PO .QD cyanocobalamin (vitamin B-12) 1,000 mcg IM Q4W gabapentin 600 mg PO TID insulin syringe-needle U-100 (BD Insulin Syringe) use for monthly injections lancets (Accu-Chek Fastclix Lancet Drum) Test blood sugar once a day latanoprost 0.005% 1 drp ophthalmic (eye) BEDTIME levothyroxine 50 mcg PO DAILY loperamide 2 mg PO BID PRN metoprolol succinate ER 50 mg (2 x 25 mg) PO DAILY omeprazole 40 mg PO BID rosuvastatin 5 mg PO DAILY spironolactone 25 mg PO DAILY syringe with needle As directed syringe with needle, safety Use to inject B12 monthly timolol maleate 0.5% 1 drp ophthalmic (eye) QAM trazodone 50 mg PO BEDTIME PRN vancomycin mg PO Tobacco use date assessed: 05/14/23 HPI 6 week follow up HPI Details Patient presents for the follow-up of hypertension hypothyroidism hyperlipidemia. Patient is worried about her 's declining health. [facility] Medical History Osteopenia Minor skin laceration Annual physical exam Vitamin B 12 deficiency Vitamin D deficiency Chronic infection of knee joint prosthesis Diarrhea Knee pain Hypothyroidism Normal Pap smear Degenerative joint disease (DJD) of lumbar spine Microscopic colitis GERD (gastroesophageal reflux disease) Factor V deficiency Depression Colitis without complication Hyperglycemia Hyperlipidemia HTN (hypertension) Surgical History H/O cervical spine surgery History of lumbar surgery History of carpal tunnel syndrome History of knee replacement History of vagotomy History of total abdominal hysterectomy and bilateral salpingo-oophorectomy Family History Father Bladder cancer Mother Hypertension Social History Housing: House Alcohol intake: never Patient Tobacco Use Status: Never used Tobacco e-Cigarette/Vaping Use: Never Used Current occupational status: retired Cognitive needs: No Hearing needs: No Vision needs: Yes Questionnaire Thrive Questionnaire Date Thrive assessed: 04/01/23 ROSALINDA-7 AMB Questionnaire ROSALINDA-7 Date ROSALINDA - 7 assessed: 04/01/23 Source: Developed by Drs. Andrew Pompa, Tasha Barnard, Jonathan Minor and colleagues, with an educational farooq from [employer] Review of Systems Const All systems reviewed & are unremarkable except as noted in HPI and below Reports no additional complaints Eyes Reports no additional complaints ENT Reports no additional complaints Card Reports no additional complaints Resp Reports no additional complaints GI Reports no additional complaints Reports no additional complaints Physical exam (Primary Care) Vital Signs: Last Vital Signs Pulse 68 05/14/23 10:31 BP 126/72 05/14/23 10:31 Pulse Ox 95 05/14/23 10:31 Oxygen Delivery Method Room Air 05/14/23 10:31 BMI result Body Mass Index 23.8 Tobacco/Smoking Status: Tobacco use Status Tobacco use date assessed 05/14/23 05/14/23 10:52 Patient Tobacco Use Status Never used Tobacco 05/14/23 10:52 e-Cigarette/Vaping Use Never Used 05/14/23 10:31 Thrive Assessment: Date of Thrive Assessment Date Thrive assessed 04/01/23 05/14/23 10:31 Const General: no acute distress HENMT Head: Yes normal to inspection Ears: hearing grossly normal bilaterally Eyes General: appearance normal, both eyes and all related structures Resp Effort & Inspection: normal respiratory effort Auscultation: clear to auscultation bilaterally Cardio Rhythm: regular rhythm Heart sounds: S1 normal heart sound present and S2 normal heart sound present Assessment and Plan Assessment & Plan (1) Factor V deficiency: Comment: on Eliquis f/u Code(s): D68.2 - Hereditary deficiency of other clotting factors Plan: Continue Eliquis (2) Hyperglycemia: Comment: Diet-controlled Code(s): R73.9 - Hyperglycemia, unspecified Plan: Continue ADA diet regular physical activity (3) Hyperlipidemia: Code(s): E78.5 - Hyperlipidemia, unspecified Plan: Continue statin (4) HTN (hypertension): Code(s): I10 - Essential (primary) hypertension Plan: Continue current medications (5) Hypothyroidism: Comment: f/u Code(s): E03.9 - Hypothyroidism, unspecified Plan: Continue levothyroxine Orders: Orders Comprehensive [facility]. Panel Fast 6 Weeks D68.2 - Hereditary deficiency of other clotting factors, E03.9 - Hypothyroidism, unspecified, E78.5 - Hyperlipidemia, unspecified, I10 - Essential (primary) hypertension, R73.9 - Hyperglycemia, unspecified TSH reflex Free T4 6 Weeks D68.2 - Hereditary deficiency of other clotting factors, E03.9 - Hypothyroidism, unspecified, E78.5 - Hyperlipidemia, unspecified, I10 - Essential (primary) hypertension, R73.9 - Hyperglycemia, unspecified Complete Blood Count Auto Diff 6 Weeks D68.2 - Hereditary deficiency of other clotting factors, E03.9 - Hypothyroidism, unspecified, E78.5 - Hyperlipidemia, unspecified, I10 - Essential (primary) hypertension, R73.9 - Hyperglycemia, unspecified Coding Level of Care Code Est Pt Level 4 (23078) Diagnoses Factor V deficiency D68.2 Hyperglycemia R73.9 Hyperlipidemia E78.5 HTN (hypertension) I10 Hypothyroidism E03.9
== END 2023-05-14 11:19 | disposition home or self-care (01) ==
PROVIDERS: PCP Internal Medicine; Visit Provider Internal Medicine
DX: D68.2 Hereditary deficiency of other clotting factors (principal); R73.9 Hyperglycemia, unspecified; E78.5 Hyperlipidemia, unspecified; I10 Essential (primary) hypertension; E03.9 Hypothyroidism, unspecified
CPT/HCPCS: 99214

== ENCOUNTER 2023-07-04 08:40 | Outpatient (REF) | payer MEDICARE, OTHER, SELFPAY ==
--- NOTE | ~2023-07-04 | MR_ITS ---
EXAMINATION: MR LUMBAR SPINE WITHOUT AND WITH CONTRAST CLINICAL INFORMATION: Spinal stenosis COMPARISON: Lumbar spine x-ray on 11/06/2017 TECHNIQUE: MRI of the lumbar spine was obtained using routine sequences with and without contrast. Intravenous contrast: Gadavist 5 mL FINDINGS: A large T2 hyperintense lesion with multiple punctate signal voids is seen in central and right T12 vertebral body, consistent with cavernous hemangioma. The visualized lumbar vertebrae are intact with postsurgical changes. Evaluation of the intervertebral discs show: T12/L1: Intervertebral disc height is normal, with normal T2 signal. No focal disc herniation is seen. Bilateral T12/L1 neuroforamina are patent. Bilateral apophyseal joints are intact with normal alignment. L-1/L-2: Intervertebral disc height is normal, with mild loss of T2 signal. No focal disc herniation is seen. Bilateral L1-L2 neuroforamina are patent. Bilateral apophyseal joints are intact with normal alignment. L2/L3: Intervertebral disc height is normal, with mild loss of T2 signal. No focal disc herniation is seen. Bilateral L2-L3 neuroforamina are patent. There is moderate spinal stenosis due to impingement by hypertrophic ligamentum flavum. Bilateral apophyseal joints are intact with normal alignment. L3/L4: Intervertebral disc height is normal, with mild loss of T2 signal. Mild bilateral foraminal disc protrusion is seen. There are mild left and marked right L3-L4 neuroforamina stenosis. There is marked spinal stenosis due to impingement by hypertrophic ligamentum flavum. Bilateral apophyseal joints are intact with normal alignment. L4/L5: There is minimal anterior L4 on L5 displacement by 0.3 cm. L4-L5 spinal fusion with metallic intervertebral spacer, posterior L4-L5 spinal fixation with transpedicular screws and vertical bars are seen. Bilateral L4-L5 neuroforamina are patent. Bilateral apophyseal joints are intact with normal alignment. L5/S1: Intervertebral disc height is normal, with normal T2 signal. No focal disc herniation is seen. Bilateral L5-S1 neuroforamina are patent. Bilateral apophyseal joints are intact with normal alignment. Conus medullaris is seen normally at L1 level. Post contrast images show no abnormal enhancing lumbar spine bone lesion. No intra spinal canalicular enhancing soft tissue mass lesion can be seen. Bilateral multiple T2 hyperintense nonenhancing renal cortical simple cysts are seen, for which no follow up imaging is recommended MR/MR lumbar spine wo/w con IMPRESSION: 1. There is post L4-L5 spinal fusion with metallic intervertebral spacer, posterior L4-L5 spinal fixation with transpedicular screws and vertical bars. 2. Marked L3-L4 spinal stenosis due to impingement by hypertrophic ligamentum flavum. 3. Moderate L2-L3 spinal stenosis due to impingement by hypertrophic ligamentum flavum. 4. Mild left and marked right L3-L4 neuroforamina stenosis. 5. No abnormal enhancing lumbar spine bone lesion. No intra spinal canalicular enhancing soft tissue mass lesion can be seen.
[2023-07-04] MEDS: gadobutroL 7.5 ML VIAL IVPUSH (13:56)
== END 2023-07-04 08:41 | disposition home or self-care (01) ==
LOC: HO.MRI 08:40
PROVIDERS: PCP Internal Medicine; Visit Provider Internal Medicine
DX: M48.061 Spinal stenosis, lumbar region without neurogenic claudication (principal)
CPT/HCPCS: 72158; A9585

== ENCOUNTER 2023-07-11 08:09 | Outpatient (REF) | payer MEDICARE, OTHER, SELFPAY ==
[2023-07-11 10:26] LABS: MANUAL DIFF FLAG NO
[2023-07-11 10:49] LABS: Basophils Absolute Auto 0.1 X10*3/uL (0.0-0.2); Basophils Percent Auto 0.9 % (0-2); Eosinophils Absolute Auto 0.2 X10*3/uL (0.0-0.4); Eosinophils Percent Auto 3.5 % (0-4); Hematocrit 35.4 % (37.0-47.0); Imm Gran Abs Auto 0.01 X10*3/uL (0.00-0.03); Imm Gran Pct Auto 0.1 % (0.0-0.4); Lymphocytes Absolute Auto 2.6 X10*3/uL (1.2-4.9); Lymphocytes Percent Auto 38.4 % (20-40); Mean Corpuscular HGB Conc 33.9 g/dl (31.0-35.0); Mean Corpuscular Hemoglobin 30.8 pg (27.0-33.0); Mean Corpuscular Volume 90.8 fL (80.0-98.0); Mean Platelet Volume 11.5 fL (9.4-12.3); Monocytes Absolute Auto 0.7 X10*3/uL (0.1-1.2); Monocytes Percent Auto 10.3 % (2-11); Neutrophils Absolute Auto 3.2 x10*3/uL (2.0-8.3); Neutrophils Percent Auto 46.8 % (45-73); Platelet Count 226 X10*3/uL (160-400); Red Cell Distribution Width 13.1 % (11.0-16.0); White Blood Count 6.8 X10*3/uL (4.8-10.8)
[2023-07-11 11:16] LABS: Alanine Aminotransferase 50 U/L (0-31); Albumin Level 4.3 g/dL (3.5-5.0); Alkaline Phosphatase 64 U/L (39-117); Anion Gap 13 (12-20); Aspartate Amino Transferase 37 U/L (5-31); Bilirubin Total 0.4 mg/dL (0.0-1.0); Blood Urea Nitrogen 27 mg/dL (9-16); Calcium 9.8 mg/dL (8.4-10.2); Carbon Dioxide 22 mmol/L (22-29); Chloride 112 mmol/L (96-108); Estimated Glomerular Filt Rate 35; Glucose Fasting 109 mg/dL (60-99); Potassium 4.9 mmol/L (3.3-5.1); Sodium 142 mmol/L (135-145); Total Protein 7.2 g/dL (6.5-8.0)
[2023-07-11 11:32] LABS: TSH reflex Free T4 1.34 uIU/mL (0.32-4.0)
== END 2023-07-11 08:10 | disposition home or self-care (01) ==
LOC: HO.HMGCLDS 08:09
PROVIDERS: PCP Internal Medicine; Visit Provider Internal Medicine
DX: D68.2 Hereditary deficiency of other clotting factors (principal); R73.9 Hyperglycemia, unspecified; I10 Essential (primary) hypertension; E03.9 Hypothyroidism, unspecified; E78.5 Hyperlipidemia, unspecified
CPT/HCPCS: 36415; 80053; 84443; 85025

== ENCOUNTER 2023-07-15 10:03 | Outpatient (AMB) | payer MEDICARE, OTHER, SELFPAY ==
[2023-07-15 10:04] VITALS: BP 124/66; PULSE 73; O2SAT 97; BMI 23.0
--- NOTE | 2023-07-15 10:04 | MHC.PC.OV ---
Vital Signs 07/15/23 10:04 Height 5 ft Weight 118 lb BMI 23.0 BP 124/66 Blood Pressure Location Rt brachial Position Sitting Pulse 73 Pulse Source Pulse Oximeter Pulse Oximetry (%) 97 Oxygen Delivery Method Room Air Intake Visit Reasons: Follow per Dr. Parmar Allergies cephalexin [CEPHALEXIN] Allergy (Severe, Verified 07/15/23 10:06) ANAPHYLAXIS nitrofurantoin [From MACRODANTIN] Allergy (Severe, Verified 07/15/23 10:06) ANAPHYLAXIS albuterol [ALBUTEROL] Allergy (Intermediate, Verified 07/15/23 10:06) ITCHING Sulfa (Sulfonamide Antibiotics) [SULFA (SULFONAMIDE ANTIBIOTICS)] Allergy (Intermediate, Verified 07/15/23 10:06) ITCHING acetaminophen [Percocet] Allergy (Unknown, Verified 07/15/23 10:06) itchy amoxicillin Allergy (Unknown, Verified 07/15/23 10:06) itchy and diarrhea doxycycline Allergy (Unknown, Verified 07/15/23 10:06) itchy gluten [GLUTEN] Allergy (Unknown, Verified 07/15/23 10:06) Ciliac disease indomethacin [Indocin] Allergy (Unknown, Verified 07/15/23 10:06) n/a lactose Allergy (Unknown, Verified 07/15/23 10:06) severe diarrhea latex Allergy (Unknown, Verified 07/15/23 10:06) itchy rash oxycodone [Percocet] Allergy (Unknown, Verified 07/15/23 10:06) itchy olmesartan Adverse Reaction (Intermediate, Verified 07/15/23 10:06) diarrhea DAIRY PRODUCTS Allergy (Unknown, Uncoded 07/15/23 10:06) severe diarrhea ventolin tabs Allergy (Unknown, Uncoded 07/15/23 10:06) unknown Tobacco use date assessed: 07/15/23 Dental Screening Dental Screen Date: 07/15/[address] aPrmar HPI Details Patient presents for the follow-up of hypertension hyperlipidemia hypothyroidism stable on medications. She complains of worsening lower back pain follows up with neurosurgeon. Patient reports poor balance due to right lower extremity weakness since her last back surgery getting worse but patient denies any falls. [facility] Medical History Osteopenia Minor skin laceration Annual physical exam Vitamin B 12 deficiency Vitamin D deficiency Chronic infection of knee joint prosthesis Diarrhea Knee pain Hypothyroidism Normal Pap smear Degenerative joint disease (DJD) of lumbar spine Microscopic colitis GERD (gastroesophageal reflux disease) Factor V deficiency Depression Colitis without complication Hyperglycemia Hyperlipidemia HTN (hypertension) Surgical History H/O cervical spine surgery History of lumbar surgery History of carpal tunnel syndrome History of knee replacement History of vagotomy History of total abdominal hysterectomy and bilateral salpingo-oophorectomy Family History Father Bladder cancer Mother Hypertension Social History Housing: House Alcohol intake: never Patient Tobacco Use Status: Never used Tobacco e-Cigarette/Vaping Use: Never Used service: No Current occupational status: retired Cognitive needs: No Hearing needs: No Vision needs: Yes Questionnaire Thrive Questionnaire Date Thrive assessed: 04/01/23 ROSALINDA-7 AMB Questionnaire ROSALINDA-7 Date ROSALINDA - 7 assessed: 04/01/23 Source: Developed by Drs. Andrew Pompa, Tasha Barnard, Jonathan Minor and colleagues, with an educational farooq from [employer]. Review of Systems Const All systems reviewed & are unremarkable except as noted in HPI and below ENT Reports no additional complaints Card Reports no additional complaints Resp Reports no additional complaints GI Reports no additional complaints Reports no additional complaints Physical exam (Primary Care) Vital Signs: Last Vital Signs Pulse 73 07/15/23 10:04 BP 124/66 07/15/23 10:04 Pulse Ox 97 07/15/23 10:04 Oxygen Delivery Method Room Air 07/15/23 10:04 BMI result Body Mass Index 23.0 Tobacco/Smoking Status: Tobacco use Status Tobacco use date assessed 07/15/23 07/15/23 10:08 Patient Tobacco Use Status Never used Tobacco 07/15/23 10:04 e-Cigarette/Vaping Use Never Used 07/15/23 10:04 Thrive Assessment: Date of Thrive Assessment Date Thrive assessed 04/01/23 07/15/23 10:04 Const General: no acute distress HENMT Head: Yes normal to inspection Throat: Yes posterior oropharynx normal Eyes General: appearance normal, both eyes and all related structures Resp Effort & Inspection: normal respiratory effort Auscultation: clear to auscultation bilaterally Cardio Rhythm: regular rhythm Heart sounds: S1 normal heart sound present and S2 normal heart sound present GI Inspection: Yes normal to inspection Palpation (GI): Soft to palpation Auscultation: normal bowel sounds Neuro Cranial nerves: Yes CN's II-XII intact bilaterally Cognition (Neuro): normal cognition Gait exam (Neuro): Staggering gait present Motor exam (neuro): Pronator motor function not present Coordination: [id number] test normal Romberg Test: Negative Extrem General: Yes no clubbing, cyanosis or edema Assessment and Plan Assessment & Plan (1) CKD (chronic kidney disease) stage 3, GFR 30-59 ml/min: Code(s): N18.30 - Chronic kidney disease, stage 3 unspecified Plan: For worsening renal function renal ultrasound will be obtained to rule out obstruction UA will be checked patient was advised to increase fluid intake. She will follow-up in 1 month with a fasting labs before (2) Hyperglycemia: Comment: Diet-controlled Code(s): R73.9 - Hyperglycemia, unspecified Plan: ADA diet discussed with the patient check A1c (3) Chronic infection of knee joint prosthesis: Comment: 03/2020, R knee on lifetime cefpodoxime Code(s): T84.59XA - Infection and inflammatory reaction due to other internal joint prosthesis, initial encounter; Z96.659 - Presence of unspecified artificial knee joint Plan: Continue antibiotic follow-up with ortho (4) Factor V deficiency: Comment: on Eliquis f/u Code(s): D68.2 - Hereditary deficiency of other clotting factors Plan: Continue Eliquis (5) HTN (hypertension): Code(s): I10 - Essential (primary) hypertension Plan: Continue current medications (6) Hyperlipidemia: Code(s): E78.5 - Hyperlipidemia, unspecified Plan: Continue statin (7) Hypothyroidism: Comment: f/u Code(s): E03.9 - Hypothyroidism, unspecified Plan: Continue levothyroxine Orders: Orders UA w Microscopic Today N18.30 - Chronic kidney disease, stage 3 unspecified Comprehensive [place]. Panel Fast 1 Month N18.30 - Chronic kidney disease, stage 3 unspecified, R73.9 - Hyperglycemia, unspecified Hemoglobin A1c 1 Month N18.30 - Chronic kidney disease, stage 3 unspecified, R73.9 - Hyperglycemia, unspecified US renal BI Today N18.30 - Chronic kidney disease, stage 3 unspecified Vitamin B12 1 Month N18.30 - Chronic kidney disease, stage 3 unspecified, R73.9 - Hyperglycemia, unspecified Coding Level of Care Code Est Pt Level 4 (37695) Diagnoses CKD (chronic kidney disease) stage 3, GFR 30-59 ml/min N18.30 Hyperglycemia R73.9 Chronic infection of knee joint prosthesis T84.59XA; Z96.659 Factor V deficiency D68.2 HTN (hypertension) I10 Hyperlipidemia E78.5 Hypothyroidism E03.9
== END 2023-07-15 10:47 | disposition home or self-care (01) ==
LOC: HO.HMGC 10:03
PROVIDERS: PCP Internal Medicine; Visit Provider Internal Medicine
DX: I12.9 Hypertensive chronic kidney disease with stage 1 through stage 4 chronic kidney disease, or unspecified chronic kidney disease (principal); N18.30 Chronic kidney disease, stage 3 unspecified; T84.59XA Infection and inflammatory reaction due to other internal joint prosthesis, initial encounter; D68.2 Hereditary deficiency of other clotting factors; R73.9 Hyperglycemia, unspecified; Z96.659 Presence of unspecified artificial knee joint; E78.5 Hyperlipidemia, unspecified; E03.9 Hypothyroidism, unspecified
CPT/HCPCS: 99214

== ENCOUNTER 2023-07-17 10:22 | Outpatient (REF) | payer MEDICARE, OTHER, SELFPAY ==
--- NOTE | ~2023-07-17 | US_ITS ---
EXAMINATION: US RETROPERITONEAL LIMITED (RENAL ONLY) CLINICAL INFORMATION: Chronic kidney disease stage III. COMPARISON: CT abdomen and pelvis 11/01/2016. TECHNIQUE: Real-time imaging of the kidneys. FINDINGS: RIGHT KIDNEY: 8.2 x 4.2 x 4.7 cm (SAG x AP x TRV). The kidney is normal in echogenicity. Renal cortical thickness is normal. Small simple cysts are seen in the upper and lower pole. No follow-up imaging is recommended. 4 mm nonobstructing calculus in the upper pole. No hydronephrosis. LEFT KIDNEY: 9.0 x 5.3 x 5.2 cm (SAG x AP x TRV). The kidney is normal in echogenicity. Renal cortical thickness is normal. 3.6 cm simple cyst in the lower pole. No follow-up imaging is recommended. No nephrolithiasis. No hydronephrosis. US/US renal BI IMPRESSION: Small kidneys. No hydronephrosis. 4 mm nonobstructing calculus in the upper right kidney.
== END 2023-07-17 10:23 | disposition home or self-care (01) ==
LOC: HO.HMGCX 10:22
PROVIDERS: PCP Internal Medicine; Visit Provider Internal Medicine
DX: N18.30 Chronic kidney disease, stage 3 unspecified (principal)
CPT/HCPCS: 76775

== ENCOUNTER 2023-07-25 10:53 | Outpatient (AMB) | payer MEDICARE, OTHER, SELFPAY ==
--- NOTE | 2023-07-25 11:01 | HO.SPINEOV ---
Intake Visit Reasons: Spinal stenosis Intake Note: Ms. Leslie ia here today c/o back pain. General Medical Practitioner Required: No Allergies cephalexin [CEPHALEXIN] Allergy (Severe, Verified 07/25/23 11:20) ANAPHYLAXIS nitrofurantoin [From MACRODANTIN] Allergy (Severe, Verified 07/25/23 11:20) ANAPHYLAXIS albuterol [ALBUTEROL] Allergy (Intermediate, Verified 07/25/23 11:20) ITCHING Sulfa (Sulfonamide Antibiotics) [SULFA (SULFONAMIDE ANTIBIOTICS)] Allergy (Intermediate, Verified 07/25/23 11:20) ITCHING acetaminophen [Percocet] Allergy (Unknown, Verified 07/25/23 11:20) itchy amoxicillin Allergy (Unknown, Verified 07/25/23 11:20) itchy and diarrhea doxycycline Allergy (Unknown, Verified 07/25/23 11:20) itchy gluten [GLUTEN] Allergy (Unknown, Verified 07/25/23 11:20) Ciliac disease indomethacin [Indocin] Allergy (Unknown, Verified 07/25/23 11:20) n/a lactose Allergy (Unknown, Verified 07/25/23 11:20) severe diarrhea latex Allergy (Unknown, Verified 07/25/23 11:20) itchy rash oxycodone [Percocet] Allergy (Unknown, Verified 07/25/23 11:20) itchy olmesartan Adverse Reaction (Intermediate, Verified 07/25/23 11:20) diarrhea DAIRY PRODUCTS Allergy (Unknown, Uncoded 07/15/23 10:06) severe diarrhea ventolin tabs Allergy (Unknown, Uncoded 07/15/23 10:06) unknown Assessment & Plan Assessment & Plan (1) Lumbar spinal stenosis due to adjacent segment 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 HPI: This patient underwent an oblique lumbar interbody fusion L4-5 with good success in 2017 . She recently developed progressive back pain that radiates down the front of her thighs. The symptoms come with walking and standing and temporarily improve when she sits. Sitting for prolonged period of time produce back pain. It is also difficult to lay down. The symptoms are interfering with the daily activities. She can not do house chores and walks with the dog I getting shorter and shorter. The following conservative treatment options were tried without success antiinflammatories, tylenol, physician guided home exercise plan, cortisone shots PMH: Factor 5 Leiden with thrombosis, hypothyroidism, hypertension, GERD, fatty liver Medications: Reviewed in [employer] Allergies: Cephalexin, nitrofurantoin, albuterol, sulfa drugs, Percocet, amoxicillin, doxycycline, oxycodone, [place] Social history: . 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 Physical Exam: Pleasant female. Incisions are well healed. No neurological deficits on exam. Radiological Studies: MRI done at [facility] shows severe adjacent spinal stenosis L3-4. An x-ray of the lumbar spine shows a solid fusion L4-5 and a unilateral collapse of the L3-4 disc space above the fusion Impression/Plan: This patient is suffering from adjacent degenerative disc disease with associated severe spinal stenosis causing back pain and bilateral leg pain. The treatment for this is to extend the fusion to L3-4. I scheduled her for an oblique lumbar interbody fusion and possible conversion to to a trans [place] approach if I'm running in too much scar tissue. The procedure complications were explained. She wants to proceed. She will obtain preoperative clearance from the primary care physician. She needs to stop her Eliquis 3 days prior to surgery. She is tentatively scheduled for October 22, 2023. Thank you for allowing me to participate in your patients care. total time spent was 50 minutes in counseling ,coordination of plan, personal review of imaging, surgical decision making and subsequent plan Vikram Ramirez MD, PhD Spine Fellowship Trained Neurosurgeon Director, [facility] Orders: Orders XR lumbar spine 4V min Today M48.061 - Spinal stenosis, lumbar region without neurogenic claudication, M51.36 - Other intervertebral disc degeneration, lumbar region Coding Level of Care Code New Pt Level 4 (34038) Diagnoses Lumbar spinal stenosis due to adjacent segment disease after fusion procedure M48.061; M51.36
== END 2023-07-25 12:14 | disposition home or self-care (01) ==
PROVIDERS: PCP Internal Medicine; Visit Provider Neurological Surgery
DX: M48.061 Spinal stenosis, lumbar region without neurogenic claudication (principal); M51.36 Other intervertebral disc degeneration, lumbar region
CPT/HCPCS: 99204; 99214

== ENCOUNTER 2023-07-25 10:53 | Outpatient (REF) | payer MEDICARE, OTHER, SELFPAY ==
--- NOTE | ~2023-07-25 | XR_ITS ---
EXAMINATION: XR LUMBOSACRAL SPINE WITH OBLIQUES CLINICAL INFORMATION: Spinal stenosis without neurogenic claudication. COMPARISON: MR lumbar spine July 04, 2023. X-ray lumbar spine 11/06/2017. TECHNIQUE: 4 views of the lumbar spine inclusive of AP, lateral neutral, flexion and extension views. FINDINGS: Dextroscoliosis of the lumbar spine. The bones are diffusely demineralized. Degenerative changes of bilateral sacroiliac joints. Atherosclerotic aortoiliac calcifications. Surgical clips in the upper abdomen. Posterior fusion hardware spanning L4-L5 with bilateral rods and pedicular screws as well as disc spacer. Hardware appears intact. Striations redemonstrated in the L2 vertebral body characterized as a hemangioma on prior MRI. Minimal grade 1 anterolisthesis of L3 on L4 with flexion and extension. Mild multilevel degenerative changes in the remainder of the lumbar spine with [id number] loss of disc space height at L5-S1. Grade 1 anterolisthesis of L5 on S1. XR/XR lumbar spine 4V min IMPRESSION: 1. Posterior fusion hardware spanning L4-L5 with bilateral rods and pedicular screws as well as disc spacer. Hardware appears intact. 2. Minimal grade 1 anterolisthesis of L3 on L4 with flexion and extension. 3. Mild multilevel degenerative changes in the remainder of the lumbar spine with [id number] loss of disc space height at L5-S1. Grade 1 anterolisthesis of L5 on S1.
== END 2023-07-25 10:54 | disposition home or self-care (01) ==
LOC: HO.HOSX 10:53
PROVIDERS: PCP Internal Medicine; Visit Provider Neurological Surgery
DX: M48.061 Spinal stenosis, lumbar region without neurogenic claudication (principal); M51.36 Other intervertebral disc degeneration, lumbar region
CPT/HCPCS: 72110; 99202

== ENCOUNTER 2023-08-05 07:00 | Outpatient (REF) | payer MEDICARE, OTHER, SELFPAY ==
[2023-08-05 10:33] LABS: Appearance Urine Clear; Color Urine Yellow; Glucose Urine UA Negative (Negative); Leukocyte Esterase Urine Negative (Negative); Nitrite Urine Negative (Negative); PH 5.5 (5.0-9.0); Specific Gravity - Urine 1.015 (1.005-1.025); Urine Blood Negative (Negative); Urine Ketones Negative (Negative); Urine Protein Negative (Neg-Trace)
[2023-08-05 10:37] LABS: Bacteria Urine None Seen (None Seen); Hyaline Casts Urine 0-2 /LPF (0-2); RBC Urine 0-2 /HPF (0-2); Squamous Epithelial Cell Urine 0-2 /HPF (0-2); WBC Urine 0-5 /HPF (0-5)
[2023-08-05 11:05] LABS: Alanine Aminotransferase 51 U/L (0-31); Albumin Level 4.2 g/dL (3.5-5.0); Alkaline Phosphatase 63 U/L (39-117); Anion Gap 13 (12-20); Aspartate Amino Transferase 35 U/L (5-31); Bilirubin Total 0.3 mg/dL (0.0-1.0); Blood Urea Nitrogen 35 mg/dL (9-16); Calcium 9.4 mg/dL (8.4-10.2); Carbon Dioxide 20 mmol/L (22-29); Chloride 113 mmol/L (96-108); Estimated Glomerular Filt Rate 33; Glucose Fasting 88 mg/dL (60-99); Potassium 4.8 mmol/L (3.3-5.1); Sodium 141 mmol/L (135-145); Total Protein 6.9 g/dL (6.5-8.0)
[2023-08-05 11:15] LABS: Estimated Average Glucose 114 mg/dL; Hemoglobin A1c % 5.6 % (<6.0)
[2023-08-05 12:04] LABS: Vitamin B12 969 pg/mL (200-900)
== END 2023-08-05 07:01 | disposition home or self-care (01) ==
LOC: HO.HMGCLDS 07:00
PROVIDERS: PCP Internal Medicine; Visit Provider Internal Medicine
DX: N18.30 Chronic kidney disease, stage 3 unspecified (principal); R73.9 Hyperglycemia, unspecified
CPT/HCPCS: 36415; 80053; 81001; 82607; 83036

== ENCOUNTER 2023-08-06 14:01 | Outpatient (AMB) | payer MEDICARE, OTHER, SELFPAY ==
[2023-08-06 14:17] VITALS: BP 130/72; PULSE 70; O2SAT 96; BMI 23.0
--- NOTE | 2023-08-06 14:17 | MHC.PC.OV ---
Vital Signs 08/06/23 14:17 Height 5 ft Weight 118 lb BMI 23.0 BP 130/72 Blood Pressure Location Lt brachial Position Sitting Pulse 70 Pulse Source Pulse Oximeter Pulse Oximetry (%) 96 Oxygen Delivery Method Room Air Intake Visit Reasons: 1 month follow up Intake Note: Pt is here today for 1 month follow up visit. Allergies cephalexin [CEPHALEXIN] Allergy (Severe, Verified 08/06/23 14:20) ANAPHYLAXIS nitrofurantoin [From MACRODANTIN] Allergy (Severe, Verified 08/06/23 14:20) ANAPHYLAXIS albuterol [ALBUTEROL] Allergy (Intermediate, Verified 08/06/23 14:20) ITCHING Sulfa (Sulfonamide Antibiotics) [SULFA (SULFONAMIDE ANTIBIOTICS)] Allergy (Intermediate, Verified 08/06/23 14:20) ITCHING acetaminophen [Percocet] Allergy (Unknown, Verified 08/06/23 14:20) itchy amoxicillin Allergy (Unknown, Verified 08/06/23 14:20) itchy and diarrhea doxycycline Allergy (Unknown, Verified 08/06/23 14:20) itchy gluten [GLUTEN] Allergy (Unknown, Verified 08/06/23 14:20) Ciliac disease indomethacin [Indocin] Allergy (Unknown, Verified 08/06/23 14:20) n/a lactose Allergy (Unknown, Verified 08/06/23 14:20) severe diarrhea latex Allergy (Unknown, Verified 08/06/23 14:20) itchy rash oxycodone [Percocet] Allergy (Unknown, Verified 08/06/23 14:20) itchy olmesartan Adverse Reaction (Intermediate, Verified 08/06/23 14:20) diarrhea DAIRY PRODUCTS Allergy (Unknown, Uncoded 08/06/23 14:20) severe diarrhea ventolin tabs Allergy (Unknown, Uncoded 08/06/23 14:20) unknown Tobacco use date assessed: 07/15/23 Dental Screening Dental Screen Date: 07/15/23 HPI 1 month follow up HPI Details Patient presents for follow-up of hypertension hypothyroidism chronic kidney disease stage 3 hyperlipidemia. [facility] Medical History (Updated 08/06/23 @ 14:55 by Jia Parmar MD) Osteopenia Minor skin laceration Annual physical exam Vitamin B 12 deficiency Vitamin D deficiency Chronic infection of knee joint prosthesis Diarrhea Knee pain Hypothyroidism Normal Pap smear Degenerative joint disease (DJD) of lumbar spine Microscopic colitis GERD (gastroesophageal reflux disease) Factor V deficiency Depression Colitis without complication Hyperglycemia Hyperlipidemia HTN (hypertension) Surgical History H/O cervical spine surgery History of lumbar surgery History of carpal tunnel syndrome History of knee replacement History of vagotomy History of total abdominal hysterectomy and bilateral salpingo-oophorectomy Family History Father Bladder cancer Mother Hypertension Social History Housing: House Alcohol intake: never Patient Tobacco Use Status: Never used Tobacco e-Cigarette/Vaping Use: Never Used service: No Current occupational status: retired Cognitive needs: No Hearing needs: No Vision needs: Yes Questionnaire Thrive Questionnaire Date Thrive assessed: 04/01/23 ROSALINDA-7 AMB Questionnaire ROSALINDA-7 Date ROSALINDA - 7 assessed: 04/01/23 Source: Developed by Drs. Andrew Pompa, Tasha Barnard, Jonathan Minor and colleagues, with an educational farooq from [employer]. Review of Systems Const All systems reviewed & are unremarkable except as noted in HPI and below ENT Reports no additional complaints Card Reports no additional complaints Resp Reports no additional complaints GI Reports no additional complaints Reports no additional complaints Physical exam (Primary Care) Vital Signs: Last Vital Signs Pulse 70 08/06/23 14:17 BP 130/72 08/06/23 14:17 Pulse Ox 96 08/06/23 14:17 Oxygen Delivery Method Room Air 08/06/23 14:17 BMI result Body Mass Index 23.0 Tobacco/Smoking Status: Tobacco use Status Tobacco use date assessed 07/15/23 08/06/23 14:19 Patient Tobacco Use Status Never used Tobacco 08/06/23 14:19 e-Cigarette/Vaping Use Never Used 08/06/23 14:19 Thrive Assessment: Date of Thrive Assessment Date Thrive assessed 04/01/23 08/06/23 14:19 Const General: no acute distress HENMT Ears: hearing grossly normal bilaterally Throat: Yes posterior oropharynx normal Neck Neck: Yes supple Resp Effort & Inspection: normal respiratory effort Auscultation: clear to auscultation bilaterally Cardio Rhythm: regular rhythm Heart sounds: S1 normal heart sound present and S2 normal heart sound present Assessment and Plan Assessment & Plan (1) Anemia: Code(s): D64.9 - Anemia, unspecified Plan: Check CBC and iron count (2) HTN (hypertension): Code(s): I10 - Essential (primary) hypertension Plan: Decrease spironolactone to 12.5 mg a day continue metoprolol and amlodipine follow-up in 1 month (3) CKD (chronic kidney disease) stage 3, GFR 30-59 ml/min: Comment: Renal ultrasound 4 mm nonobstructive right kidney stone 07/2023 Code(s): N18.30 - Chronic kidney disease, stage 3 unspecified Plan: Patient was advised to increase fluid intake, avoid nephrotoxins will monitor renal function in 1 month Orders: Orders Complete Blood Count Auto Diff Today D64.9 - Anemia, unspecified Comprehensive Met. Panel 1 Month D64.9 - Anemia, unspecified, I10 - Essential (primary) hypertension IRON PROFILE Today D64.9 - Anemia, unspecified Complete Blood Count Auto Diff 1 Month D64.9 - Anemia, unspecified, I10 - Essential (primary) hypertension Medications: Changed From spironolactone 25 mg PO DAILY 90 tabs 3RF To spironolactone 12.5 mg (1/2 x 25 mg) PO DAILY 90 tabs 3RF Coding Level of Care Code Est Pt Level 4 (18620) Diagnoses Anemia D64.9 HTN (hypertension) I10 CKD (chronic kidney disease) stage 3, GFR 30-59 ml/min N18.30
== END 2023-08-06 14:55 | disposition home or self-care (01) ==
PROVIDERS: PCP Internal Medicine; Visit Provider Internal Medicine
DX: I12.9 Hypertensive chronic kidney disease with stage 1 through stage 4 chronic kidney disease, or unspecified chronic kidney disease (principal); N18.30 Chronic kidney disease, stage 3 unspecified; D64.9 Anemia, unspecified
CPT/HCPCS: 99214

== ENCOUNTER 2023-08-06 14:56 | Outpatient (REF) | payer MEDICARE, OTHER, SELFPAY ==
[2023-08-06 16:17] LABS: MANUAL DIFF FLAG NO
[2023-08-06 16:27] LABS: Basophils Absolute Auto 0.1 X10*3/uL (0.0-0.2); Basophils Percent Auto 0.6 % (0-2); Eosinophils Absolute Auto 0.2 X10*3/uL (0.0-0.4); Eosinophils Percent Auto 2.5 % (0-4); Hematocrit 35.8 % (37.0-47.0); Imm Gran Abs Auto 0.03 X10*3/uL (0.00-0.03); Imm Gran Pct Auto 0.4 % (0.0-0.4); Lymphocytes Absolute Auto 2.9 X10*3/uL (1.2-4.9); Lymphocytes Percent Auto 34.9 % (20-40); Mean Corpuscular HGB Conc 33.5 g/dl (31.0-35.0); Mean Corpuscular Hemoglobin 30.3 pg (27.0-33.0); Mean Corpuscular Volume 90.4 fL (80.0-98.0); Mean Platelet Volume 11.6 fL (9.4-12.3); Monocytes Absolute Auto 0.8 X10*3/uL (0.1-1.2); Monocytes Percent Auto 9.6 % (2-11); Neutrophils Absolute Auto 4.4 x10*3/uL (2.0-8.3); Platelet Count 228 X10*3/uL (160-400); Red Blood Count 3.96 X10*6/uL (4.20-5.50); Red Cell Distribution Width 12.5 % (11.0-16.0); White Blood Count 8.4 X10*3/uL (4.8-10.8)
[2023-08-06 16:40] LABS: Iron 103 mcg/dL (30-160); Percent Iron Saturation 29 % (15-50); Total Iron Binding Capacity 357 mcg/dL (228-428); Unsaturated Iron Binding 254 ug/dL
== END 2023-08-06 14:57 | disposition home or self-care (01) ==
LOC: HO.HMGCLDS 14:56
PROVIDERS: PCP Internal Medicine; Visit Provider Internal Medicine
DX: D64.9 Anemia, unspecified (principal)
CPT/HCPCS: 36415; 83540; 85025

== ENCOUNTER 2023-09-17 11:02 | Outpatient (AMB) | payer MEDICARE, OTHER, SELFPAY ==
[2023-09-17 11:17] VITALS: BP 126/74; PULSE 69; O2SAT 96; BMI 23.4
--- NOTE | 2023-09-17 11:17 | MHC.PC.OV ---
Vital Signs 09/17/23 11:17 Height 5 ft Weight 120 lb BMI 23.4 BP 126/74 Blood Pressure Location Lt brachial Position Sitting Pulse 69 Pulse Source Pulse Oximeter Pulse Oximetry (%) 96 Oxygen Delivery Method Room Air Intake Visit Reasons: 1 month follow up Intake Note: Pt is here today for 1 month follow up visit. Allergies cephalexin [CEPHALEXIN] Allergy (Severe, Verified 09/17/23 11:24) ANAPHYLAXIS nitrofurantoin [From MACRODANTIN] Allergy (Severe, Verified 09/17/23 11:24) ANAPHYLAXIS albuterol [ALBUTEROL] Allergy (Intermediate, Verified 09/17/23 11:24) ITCHING Sulfa (Sulfonamide Antibiotics) [SULFA (SULFONAMIDE ANTIBIOTICS)] Allergy (Intermediate, Verified 09/17/23 11:24) ITCHING acetaminophen [Percocet] Allergy (Unknown, Verified 09/17/23 11:24) itchy amoxicillin Allergy (Unknown, Verified 09/17/23 11:24) itchy and diarrhea doxycycline Allergy (Unknown, Verified 09/17/23 11:24) itchy gluten [GLUTEN] Allergy (Unknown, Verified 09/17/23 11:24) Ciliac disease indomethacin [Indocin] Allergy (Unknown, Verified 09/17/23 11:24) n/a lactose Allergy (Unknown, Verified 09/17/23 11:24) severe diarrhea latex Allergy (Unknown, Verified 09/17/23 11:24) itchy rash oxycodone [Percocet] Allergy (Unknown, Verified 09/17/23 11:24) itchy olmesartan Adverse Reaction (Intermediate, Verified 09/17/23 11:24) diarrhea DAIRY PRODUCTS Allergy (Unknown, Uncoded 09/17/23 11:24) severe diarrhea ventolin tabs Allergy (Unknown, Uncoded 09/17/23 11:24) unknown Tobacco use date assessed: 09/17/23 Fall risk assessment: No Falls in past year Last assessed Fall Risk: 09/17/23 Dental Screening Dental Screen Date: 07/15/23 HPI 1 month follow up HPI Details PATIENT PRESENTS FOR THE FOLLOW-UP OF HYPERTENSION HYPOTHYROIDISM HYPERLIPIDEMIA stable on current medications. She will have a lower back surgery next month. [facility] Medical History Osteopenia Minor skin laceration Annual physical exam Vitamin B 12 deficiency Vitamin D deficiency Chronic infection of knee joint prosthesis Diarrhea Knee pain Hypothyroidism Normal Pap smear Degenerative joint disease (DJD) of lumbar spine Microscopic colitis GERD (gastroesophageal reflux disease) Factor V deficiency Depression Colitis without complication Hyperglycemia Hyperlipidemia HTN (hypertension) Surgical History H/O cervical spine surgery History of lumbar surgery History of carpal tunnel syndrome History of knee replacement History of vagotomy History of total abdominal hysterectomy and bilateral salpingo-oophorectomy Family History Father Bladder cancer Mother Hypertension Social History Housing: House Alcohol intake: never Patient Tobacco Use Status: Never used Tobacco e-Cigarette/Vaping Use: Never Used Second Hand Smoke Exposure: Yes service: No Current occupational status: retired Cognitive needs: No Hearing needs: No Vision needs: Yes Questionnaire PHQ-9 Over the last 2 weeks, how often have you been bothered by any of the following problems? 1. Little interest or pleasure in doing things: not at all 2. Feeling down, depressed, or hopeless: not at all 3. Trouble falling or staying asleep, or sleeping too much: not at all 4. Feeling tired or having little energy: not at all 5. Poor appetite or overeating: not at all 6. Feeling bad about yourself - or that you are a failure or have let yourself or your family down: not at all 7. Trouble concentrating on things, such as reading the newspaper or watching television: not at all 8. Moving or speaking so slowly that other people could have noticed. Or the opposite - being so fidgety or restless that you have been moving around a lot more than usual: not at all 9. Thoughts that you would be better off or of hurting yourself in some way: not at all Total score: 0 Depression Screening Interpretation: Negative Depression Screening Done: Yes Source: Developed by Drs. Andrew Pompa, Tasha Barnard, Jonathan Minor and colleagues, with an educational farooq from [employer]. Thrive Questionnaire Date Thrive assessed: 09/16/23 I am a: Patient What is your living situation today?: I have a steady place to live Within the past 12 months, did the food you bought not last and you didn't have the money to get more?: Never true Within the past 12 months, did you worry whether your food would run out before you got money to buy more?: Never true Do you have trouble paying for medicines?: No Do you have trouble getting transportation to medical appointments?: No Do you have trouble paying your heating and electricity bill?: No Do you have trouble taking care of your child, family member or friend?: No Do you have trouble with day-to-day activities such as bathing, preparing meals, shopping, managing finances, etc.?: No Are you currently unemployed and looking for a job?: No Are you interested in more education?: No Please select the resources that you would like help with: Housing/[facility] Currently or been in a relationship where the following occur: No concerns reported THRIVE Score: 0 AUDIT C Alcohol Use Questionnaire (AUDIT-C) 1. How often do you have a drink containing alcohol?: Never 3. How often do you have six or more drinks on one occasion?: Never Total Score: 0 ROSALINDA-7 AMB Questionnaire ROSALINDA-7 Date ROSALINDA - 7 assessed: 04/01/23 Feeling nervous, anxious, or on edge: 0 = Not at all Not being able to stop or control worryin = Not at all Worrying too much about different things: 0 = Not at all Trouble relaxin = Not at all Being so restless that it is hard to sit still: 0 = Not at all Becoming easily annoyed or irritable: 0 = Not at all Feeling afraid as if something awful might happen: 0 = Not at all Total ROSALINDA-7 score (0-4 normal; 5-9 mild; 10-14 moderate; 15-21 severe): 0 Source: Developed by Drs. Andrew Pompa, Tasha Barnard, Jonathan Minor and colleagues, with an educational farooq from [employer]. Review of Systems Const All systems reviewed & are unremarkable except as noted in HPI and below ENT Reports no additional complaints Card Reports no additional complaints Resp Reports no additional complaints GI Reports no additional complaints Reports no additional complaints Physical exam (Primary Care) Vital Signs: Last Vital Signs Pulse 69 09/17/23 11:17 BP 126/74 07/17/24 11:17 Pulse Ox 96 09/17/23 11:17 Oxygen Delivery Method Room Air 09/17/23 11:17 BMI result Body Mass Index 23.4 Tobacco/Smoking Status: Tobacco use Status Tobacco use date assessed 09/17/23 09/17/23 11:30 Patient Tobacco Use Status Never used Tobacco 09/17/23 11:30 e-Cigarette/Vaping Use Never Used 09/17/23 11:17 PHQ-9: PHQ-9 Score PHQ-9: Total score 0 09/17/23 11:31 Depression Screening Interpretation: Negative Thrive Assessment: Date of Thrive Assessment Date Thrive assessed 09/16/23 09/17/23 11:17 Currently or been in a relationship where the following occur: No concerns reported Const General: no acute distress Eyes General: appearance normal, both eyes and all related structures Resp Effort & Inspection: normal respiratory effort Auscultation: clear to auscultation bilaterally Cardio Rhythm: regular rhythm Heart sounds: S1 normal heart sound present and S2 normal heart sound present Assessment and Plan Assessment & Plan (1) Anemia: Code(s): D64.9 - Anemia, unspecified Plan: Check CBC B12 and iron studies (2) Vitamin B 12 deficiency: Code(s): E53.8 - Deficiency of other specified B group vitamins Plan: Check vitamin B12 (3) Vitamin D deficiency: Code(s): E55.9 - Vitamin D deficiency, unspecified Plan: Check vitamin-D (4) Hyperglycemia: Comment: Diet-controlled Code(s): R73.9 - Hyperglycemia, unspecified Plan: Continue ADA diet (5) Hyperlipidemia: Code(s): E78.5 - Hyperlipidemia, unspecified Plan: Continue statin (6) HTN (hypertension): Code(s): I10 - Essential (primary) hypertension Plan: Continue current medications (7) CKD (chronic kidney disease) stage 3, GFR 30-59 ml/min: Comment: Renal ultrasound 4 mm nonobstructive right kidney stone 07/2023 Code(s): N18.30 - Chronic kidney disease, stage 3 unspecified Plan: Monitor renal function avoid nephrotoxins Orders: Orders Comprehensive [place]. Panel Fast 3 Weeks D64.9 - Anemia, unspecified, E03.9 - Hypothyroidism, unspecified, E53.8 - Deficiency of other specified B group vitamins, E55.9 - Vitamin D deficiency, unspecified, E78.5 - Hyperlipidemia, unspecified, I10 - Essential (primary) hypertension Complete Blood Count Auto Diff 3 Weeks D64.9 - Anemia, unspecified, E03.9 - Hypothyroidism, unspecified, E53.8 - Deficiency of other specified B group vitamins, E55.9 - Vitamin D deficiency, unspecified, E78.5 - Hyperlipidemia, unspecified, I10 - Essential (primary) hypertension IRON PROFILE 3 Weeks D64.9 - Anemia, unspecified, E03.9 - Hypothyroidism, unspecified, E53.8 - Deficiency of other specified B group vitamins, E55.9 - Vitamin D deficiency, unspecified, E78.5 - Hyperlipidemia, unspecified, I10 - Essential (primary) hypertension Lipid Panel 3 Weeks D64.9 - Anemia, unspecified, E03.9 - Hypothyroidism, unspecified, E53.8 - Deficiency of other specified B group vitamins, E55.9 - Vitamin D deficiency, unspecified, E78.5 - Hyperlipidemia, unspecified, I10 - Essential (primary) hypertension Vitamin B12 and Folate 3 Weeks D64.9 - Anemia, unspecified, E03.9 - Hypothyroidism, unspecified, E53.8 - Deficiency of other specified B group vitamins, E55.9 - Vitamin D deficiency, unspecified, E78.5 - Hyperlipidemia, unspecified, I10 - Essential (primary) hypertension Vitamin D 25-OH Total 3 Weeks D64.9 - Anemia, unspecified, E03.9 - Hypothyroidism, unspecified, E53.8 - Deficiency of other specified B group vitamins, E55.9 - Vitamin D deficiency, unspecified, E78.5 - Hyperlipidemia, unspecified, I10 - Essential (primary) hypertension TSH reflex Free T4 3 Weeks D64.9 - Anemia, unspecified, E03.9 - Hypothyroidism, unspecified, E53.8 - Deficiency of other specified B group vitamins, E55.9 - Vitamin D deficiency, unspecified, E78.5 - Hyperlipidemia, unspecified, I10 - Essential (primary) hypertension Coding Level of Care Code Est Pt Level 4 (40054) Diagnoses Anemia D64.9 Vitamin B 12 deficiency E53.8 Vitamin D deficiency E55.9 Hyperglycemia R73.9 Hyperlipidemia E78.5 HTN (hypertension) I10 CKD (chronic kidney disease) stage 3, GFR 30-59 ml/min N18.30
== END 2023-09-17 12:10 | disposition home or self-care (01) ==
PROVIDERS: PCP Internal Medicine; Visit Provider Internal Medicine
DX: D64.9 Anemia, unspecified (principal); I12.9 Hypertensive chronic kidney disease with stage 1 through stage 4 chronic kidney disease, or unspecified chronic kidney disease; N18.30 Chronic kidney disease, stage 3 unspecified; E53.8 Deficiency of other specified B group vitamins; E55.9 Vitamin D deficiency, unspecified; R73.9 Hyperglycemia, unspecified; E78.5 Hyperlipidemia, unspecified
CPT/HCPCS: 99214

== ENCOUNTER → 2023-10-08 11:20 | Outpatient (BNV) | payer MEDICARE, OTHER, SELFPAY | PROVIDERS: Admitting Provider Neurological Surgery; PCP Internal Medicine; Visit Provider Internal Medicine Cardiovascular Disease | DX: R94.31 Abnormal electrocardiogram [ECG] [EKG] (principal) | CPT/HCPCS: 93010 ==

== ENCOUNTER 2023-10-09 09:53 | Outpatient (AMB) | payer MEDICARE, OTHER, SELFPAY ==
[2023-10-09 10:01] VITALS: BP 124/64; PULSE 67; O2SAT 96; BMI 22.5
--- NOTE | 2023-10-09 10:01 | MHC.PC.OV ---
Vital Signs 10/09/23 10:01 Height 5 ft Weight 115 lb BMI 22.5 BP 124/64 Blood Pressure Location Lt brachial Position Sitting Pulse 67 Pulse Source Pulse Oximeter Pulse Oximetry (%) 96 Oxygen Delivery Method Room Air Intake Visit Reasons: Pre OP spinal stenosis Intake Note: Pt is here today for a pre op visit. Pt [place] [facility] Pt states that she had a pre op done yesterday and head E[place] [facility] Allergies cephalexin [CEPHALEXIN] Allergy (Severe, Verified 09/17/23 11:24) ANAPHYLAXIS nitrofurantoin [From MACRODANTIN] Allergy (Severe, Verified 09/17/23 11:24) ANAPHYLAXIS albuterol [ALBUTEROL] Allergy (Intermediate, Verified 09/17/23 11:24) ITCHING Sulfa (Sulfonamide Antibiotics) [SULFA (SULFONAMIDE ANTIBIOTICS)] Allergy (Intermediate, Verified 09/17/23 11:24) ITCHING acetaminophen [Percocet] Allergy (Unknown, Verified 09/17/23 11:24) itchy amoxicillin Allergy (Unknown, Verified 09/17/23 11:24) itchy and diarrhea doxycycline Allergy (Unknown, Verified 09/17/23 11:24) itchy gluten [GLUTEN] Allergy (Unknown, Verified 09/17/23 11:24) Ciliac disease indomethacin [Indocin] Allergy (Unknown, Verified 09/17/23 11:24) n/a lactose Allergy (Unknown, Verified 09/17/23 11:24) severe diarrhea latex Allergy (Unknown, Verified 09/17/23 11:24) itchy rash oxycodone [Percocet] Allergy (Unknown, Verified 09/17/23 11:24) itchy olmesartan Adverse Reaction (Intermediate, Verified 09/17/23 11:24) diarrhea DAIRY PRODUCTS Allergy (Unknown, Uncoded 09/17/23 11:24) severe diarrhea ventolin tabs Allergy (Unknown, Uncoded 10/08/23 10:36) Palpitations Medication List - Last Reconciled 10/09/23 by Jia Parmar MD amlodipine 5 mg PO BID apixaban (Eliquis) 5 mg PO BID blood sugar diagnostic As directed cefpodoxime 200 mg PO DAILY cyanocobalamin (vitamin B-12) 1,000 mcg IM Q4W gabapentin 300 mg PO BID insulin syringe-needle U-100 (BD Insulin Syringe) use for monthly injections lancets (Accu-Chek Fastclix Lancet Drum) Test blood sugar once a day latanoprost 0.005% 1 drp ophthalmic (eye) BEDTIME levothyroxine 50 mcg PO DAILY loperamide 2 mg PO BID PRN metoprolol succinate ER 25 mg PO BID omeprazole 40 mg PO BID rosuvastatin 5 mg PO BEDTIME sertraline 25 mg PO DAILY spironolactone 12.5 mg (1/2 x 25 mg) PO DAILY syringe with needle As directed syringe with needle, safety Use to inject B12 monthly timolol maleate 0.5% 1 drp ophthalmic (eye) QAM trazodone 50 mg PO BEDTIME PRN vancomycin 125 mg PO BID Tobacco use date assessed: 09/17/23 Dental Screening Dental Screen Date: 07/15/23 HPI Pre OP spinal stenosis HPI Details Patient presents for a preop visit for lumbar spinal stenosis surgery. She had an preop EKG yesterday which showed normal sinus rhythm QS in lead 3 and T-wave inversion in lead 3 new comparing to previous EKG from last year. Patient denies chest pain shortness of breath palpitations but has been under lot of stress related to her 's sickness. She reports blood pressure generally well controlled at home with the readings at 130/80 but increases when she is under stress and feeling anxious. [facility] Medical History (Updated 10/09/23 @ 11:13 by Jia Parmar MD) Hx of rheumatoid arthritis Hx of ectopic Back pain Arthritis Thyroid disease Diabetes Peptic ulcer Fatty liver Asthma On anticoagulant therapy DVT (deep venous thrombosis) Pulmonary embolism Osteopenia Minor skin laceration Annual physical exam Vitamin B 12 deficiency Vitamin D deficiency Chronic infection of knee joint prosthesis Diarrhea Knee pain Hypothyroidism Normal Pap smear Degenerative joint disease (DJD) of lumbar spine Microscopic colitis GERD (gastroesophageal reflux disease) Factor V deficiency Depression Colitis without complication Hyperglycemia Hyperlipidemia HTN (hypertension) Surgical History History of dental surgery History of release of tendon Hx of hammer toe correction History of bunionectomy of left great toe Hx of cholecystectomy H/O colonoscopy H/O cervical spine surgery History of lumbar surgery History of carpal tunnel syndrome History of knee replacement History of vagotomy History of total abdominal hysterectomy and bilateral salpingo-oophorectomy Family History Father Bladder cancer Mother Hypertension Social History Housing: House Are you a primary customer care representative to a significant other at home: No Do you presently have visiting nurse or other home services: No Alcohol intake: never Patient Tobacco Use Status: Never used Tobacco e-Cigarette/Vaping Use: Never Used Second Hand Smoke Exposure: Yes service: No Current occupational status: retired Cognitive needs: No Hearing needs: No Vision needs: Yes Questionnaire PHQ-9 Over the last 2 weeks, how often have you been bothered by any of the following problems? 1. Little interest or pleasure in doing things: not at all 2. Feeling down, depressed, or hopeless: not at all 3. Trouble falling or staying asleep, or sleeping too much: not at all 4. Feeling tired or having little energy: not at all 5. Poor appetite or overeating: not at all 6. Feeling bad about yourself - or that you are a failure or have let yourself or your family down: not at all 7. Trouble concentrating on things, such as reading the newspaper or watching television: not at all 8. Moving or speaking so slowly that other people could have noticed. Or the opposite - being so fidgety or restless that you have been moving around a lot more than usual: not at all 9. Thoughts that you would be better off or of hurting yourself in some way: not at all Total score: 0 Depression Screening Interpretation: Negative Depression Screening Done: Yes Source: Developed by Drs. Andrew Pompa, Tasha Barnard, Jonathan Minor and colleagues, with an educational farooq from [employer] Thrive Questionnaire Date Thrive assessed: 10/09/23 I am a: Patient What is your living situation today?: I have a steady place to live Within the past 12 months, did the food you bought not last and you didn't have the money to get more?: Never true Within the past 12 months, did you worry whether your food would run out before you got money to buy more?: Never true Do you have trouble paying for medicines?: No Do you have trouble getting transportation to medical appointments?: No Do you have trouble paying your heating and electricity bill?: No Do you have trouble taking care of your child, family member or friend?: No Do you have trouble with day-to-day activities such as bathing, preparing meals, shopping, managing finances, etc.?: No Are you currently unemployed and looking for a job?: No Are you interested in more education?: No Please select the resources that you would like help with: Housing/Custodial Currently or been in a relationship where the following occur: No concerns reported THRIVE Score: 0 AUDIT C Alcohol Use Questionnaire (AUDIT-C) 1. How often do you have a drink containing alcohol?: Never 3. How often do you have six or more drinks on one occasion?: Never Total Score: 0 ROSALINDA-7 AMB Questionnaire ROSALINDA-7 Date ROSALINDA - 7 assessed: 10/09/23 Feeling nervous, anxious, or on edge: 0 = Not at all Not being able to stop or control worryin = Not at all Worrying too much about different things: 0 = Not at all Trouble relaxin = Not at all Being so restless that it is hard to sit still: 0 = Not at all Becoming easily annoyed or irritable: 0 = Not at all Feeling afraid as if something awful might happen: 0 = Not at all Total ROSALINDA-7 score (0-4 normal; 5-9 mild; 10-14 moderate; 15-21 severe): 0 Source: Developed by Drs. Andrew Pompa, Tasha Barnard, Jonathan Minor and colleagues, with an educational farooq from [employer]). Review of Systems Const All systems reviewed & are unremarkable except as noted in HPI and below Eyes Reports no additional complaints ENT Reports no additional complaints Card Reports no additional complaints Resp Reports no additional complaints GI Reports no additional complaints Reports no additional complaints Physical exam (Primary Care) Vital Signs: Last Vital Signs Pulse 67 10/09/23 10:01 BP 124/64 10/09/23 10:01 Pulse Ox 96 10/09/23 10:01 Oxygen Delivery Method Room Air 10/09/23 10:01 BMI result Body Mass Index 22.5 Tobacco/Smoking Status: Tobacco use Status Tobacco use date assessed 09/17/23 10/09/23 10:06 Patient Tobacco Use Status Never used Tobacco 10/09/23 10:06 e-Cigarette/Vaping Use Never Used 10/09/23 10:06 PHQ-9: PHQ-9 Score PHQ-9: Total score 0 10/09/23 10:06 Depression Screening Interpretation: Negative Thrive Assessment: Date of Thrive Assessment Date Thrive assessed 10/09/23 10/09/23 10:06 Currently or been in a relationship where the following occur: No concerns reported Const General: no acute distress HENMT Throat: Yes posterior oropharynx normal Eyes General: appearance normal, both eyes and all related structures Neck Neck: Yes supple Resp Effort & Inspection: normal respiratory effort Auscultation: clear to auscultation bilaterally Cardio Rhythm: regular rhythm Heart sounds: S1 normal heart sound present and S2 normal heart sound present Assessment and Plan Assessment & Plan (1) Anemia: Comment: CHRONIC, nl Iron, B12 08/2023 Code(s): D64.9 - Anemia, unspecified Plan: check CBC (2) Abnormal EKG: Code(s): R94.31 - Abnormal electrocardiogram [ECG] [EKG] Plan: OBTAIN ECHOCARDIOGRAM TO EVALUATE FOR REGIONAL WALL MOTION ABNORMALITY before the surgery (3) CKD (chronic kidney disease) stage 3, GFR 30-59 ml/min: Comment: Renal ultrasound 4 mm nonobstructive right kidney stone 07/2023 Code(s): N18.30 - Chronic kidney disease, stage 3 unspecified Plan: Check BMP today. Avoid nephrotoxins (4) Degenerative joint disease (DJD) of lumbar spine: Comment: S/P R L4 laminectomy and L4 decompression 04/2019 Code(s): M47.816 - Spondylosis without myelopathy or radiculopathy, lumbar region Plan: Patient will be cleared for surgery once echo results available (5) Depression: Code(s): F32.9 - Major depressive disorder, single episode, unspecified Plan: Start sertraline 25 mg daily (6) HTN (hypertension): Code(s): I10 - Essential (primary) hypertension Plan: Continue current medications Orders: Orders Complete Blood Count Auto Diff Today D64.9 - Anemia, unspecified Basic Metabolic Panel Today D64.9 - Anemia, unspecified CA echo transthoracic complete Today R94.31 - Abnormal electrocardiogram [ECG] [EKG] Medications: New sertraline 25 mg PO DAILY 30 tabs 1RF Coding Level of Care Code Est Pt Level 4 (87776) Diagnoses Anemia D64.9 Abnormal EKG R94.31 CKD (chronic kidney disease) stage 3, GFR 30-59 ml/min N18.30 Degenerative joint disease (DJD) of lumbar spine M47.816 Depression F32.9 HTN (hypertension) I10
== END 2023-10-09 11:15 | disposition home or self-care (01) ==
PROVIDERS: PCP Internal Medicine; Visit Provider Internal Medicine
DX: I12.9 Hypertensive chronic kidney disease with stage 1 through stage 4 chronic kidney disease, or unspecified chronic kidney disease (principal); N18.30 Chronic kidney disease, stage 3 unspecified; D64.9 Anemia, unspecified; F32.9 Major depressive disorder, single episode, unspecified; R94.31 Abnormal electrocardiogram [ECG] [EKG]; M47.816 Spondylosis without myelopathy or radiculopathy, lumbar region
CPT/HCPCS: 99214

== ENCOUNTER 2023-10-09 11:01 | Outpatient (REF) | payer MEDICARE, OTHER, SELFPAY ==
[2023-10-09 13:12] LABS: MANUAL DIFF FLAG NO
[2023-10-09 13:23] LABS: Basophils Absolute Auto 0.1 X10*3/uL (0.0-0.2); Basophils Percent Auto 0.7 % (0-2); Eosinophils Absolute Auto 0.2 X10*3/uL (0.0-0.4); Eosinophils Percent Auto 1.9 % (0-4); Hemoglobin 12.8 g/dl (12.0-16.0); Imm Gran Abs Auto 0.04 X10*3/uL (0.00-0.03); Imm Gran Pct Auto 0.4 % (0.0-0.4); Lymphocytes Absolute Auto 2.1 X10*3/uL (1.2-4.9); Mean Corpuscular HGB Conc 33.7 g/dl (31.0-35.0); Mean Corpuscular Hemoglobin 30.8 pg (27.0-33.0); Mean Corpuscular Volume 91.3 fL (80.0-98.0); Mean Platelet Volume 11.4 fL (9.4-12.3); Monocytes Absolute Auto 0.8 X10*3/uL (0.1-1.2); Neutrophils Absolute Auto 7.2 x10*3/uL (2.0-8.3); Platelet Count 223 X10*3/uL (160-400); Red Blood Count 4.16 X10*6/uL (4.20-5.50); Red Cell Distribution Width 12.4 % (11.0-16.0); White Blood Count 10.5 X10*3/uL (4.8-10.8)
[2023-10-09 14:05] LABS: Alanine Aminotransferase 59 U/L (0-31); Albumin Level 4.7 g/dL (3.5-5.0); Alkaline Phosphatase 69 U/L (39-117); Anion Gap 12 (12-20); Aspartate Amino Transferase 37 U/L (5-31); Bilirubin Total 0.4 mg/dL (0.0-1.0); Blood Urea Nitrogen 25 mg/dL (9-16); Calcium 10.3 mg/dL (8.4-10.2); Carbon Dioxide 25 mmol/L (22-29); Chloride 110 mmol/L (96-108); Cholesterol 145 mg/dL (<200); Estimated Glomerular Filt Rate 37; Glucose Fasting 117 mg/dL (60-99); Glucose Random 117 mg/dL (60-115); HDL Cholesterol 59 mg/dL (>40); Iron 72 mcg/dL (30-160); LDL Cholesterol Calculated 71 mg/dL (<100); Percent Iron Saturation 21 % (15-50); Potassium 5.2 mmol/L (3.3-5.1); Sodium 142 mmol/L (135-145); Total Iron Binding Capacity 338 mcg/dL (228-428); Total Protein 7.8 g/dL (6.5-8.0); Triglycerides 78 mg/dL (<150); Unsaturated Iron Binding 266 ug/dL
[2023-10-09 14:11] LABS: Folate 14.6 ng/mL (> or = 4.0); TSH reflex Free T4 0.57 uIU/mL (0.32-4.0); Vitamin B12 1223 pg/mL (200-900); Vitamin D 25-OH Total 72.3 ng/mL (>30)
== END 2023-10-09 11:02 | disposition home or self-care (01) ==
LOC: HO.HMGCLDS 11:01
PROVIDERS: PCP Internal Medicine; Visit Provider Internal Medicine
DX: D64.9 Anemia, unspecified (principal); E53.8 Deficiency of other specified B group vitamins; E55.9 Vitamin D deficiency, unspecified; E03.9 Hypothyroidism, unspecified; I10 Essential (primary) hypertension; E78.5 Hyperlipidemia, unspecified
CPT/HCPCS: 36415; 80048; 80053; 80061; 82306; 82607; 82746; 83540; 84443; 85025

== ENCOUNTER → 2023-10-13 14:27 | Outpatient (REF) | payer MEDICARE, OTHER, SELFPAY ==
--- NOTE | 2023-10-13 14:35 | CA_ITS ---
Transthoracic Echocardiogram Patient (Last, First, Middle): Lynda Leslie D Gender: Female Date of : 1945 Age: 78 Procedure Date: 10/13/2023 Procedure Type: Transthoracic Echocardiogram Location: OP Height: 152.4 cm Weight: 53.07 kg BSA: 1.49 m2 Heart Rate: bpm BP: 130 / 82 mmHg Canine Service Teacher: KILLIAN Referring MD: Jia Parmar MD Symptoms: R94.31 - Abnormal electrocardiogram [ECG] [EKG] Study Quality: Adequate ECG Rhythm: Sinus Conclusions: - The left ventricular systolic function is normal. The calculated ejection fraction is 66% by biplane method. - No obvious valvular pathology seen on this study. Findings Left Ventricle Normal left ventricular cavity size. There is mildly increased left ventricular wall thickness. The left ventricular systolic function is normal. The calculated ejection fraction is 66% by biplane method. There is no evidence of regional wall motion abnormalities. Evidence suggests grade I (mild) diastolic dysfunction. Right Ventricle Normal right ventricular cavity size and systolic function. Atria The left atrium is mildly dilated. The right atrium is normal in size. Aortic Valve There is a normal trileaflet aortic valve. There is no aortic valve stenosis. There is mild aortic valve regurgitation. Mitral Valve The mitral valve appears normal. There is trace mitral valve regurgitation. There is no mitral valve stenosis. Pulmonic Valve There is trace pulmonic valve regurgitation. Tricuspid Valve There is mild tricuspid valve regurgitation. There is no evidence of pulmonary hypertension. Great Vessels The asc aorta is normal in size. Small plaque is seen in the sino tubular ridge. Venous The inferior vena cava is mildly dilated and collapses greater than 50% with inspiration. Pericardium/Pleural There is a trivial pericardial effusion. Prior Study Comparison No prior study available for comparison. Recommendations, Care & Conclusions No obvious valvular pathology seen on this study. Measurements 2D Linear Measurements IVSd: 1.09 0.6-0.9/0.6-1.0 cm LVIDd: 3.58 3.9-5.3/4.2-5.9 cm LVIDd Index: 2.40 2.4-3.2/2.2-3.1 cm/m2 LVIDs: 2.49 2.0-3.6 cm LVPWd: 1.02 0.7-1.1 cm LA Diam: 3.80 2.7-3.8/3.0-4.0 cm LAIDs Index: 2.55 1.5-2.3 cm/m2 LV Mass: 143.87 67-162/88-224 g LV Mass Index: 96.56 43-95/49-115 g/m2 LVOT Diam: 1.90 3.0+(-)1.3 cm 2D Systolic Function EF 4C: 64.70 >55% EF 2C: 64.70 >55% EF BiP: 65.80 >55% Mitral Valve MV Pk E: 0.95 MV PK A: 1.10 MV Decel Time: 197.00 E/A: 0.90 E'Lateral: 5.87 E'Medial: 5.66 E/E' Med: 16.80 E/E' Lat: 16.20 PHT: 58.00 MVA PHT: 3.79 Decel [place]: 4.82 Aortic Valve AoV Pk Tyler: 1.76 AoV Mn Tyler: 1.25 AoV VTI: 0.45 AoV Pk Grad: 12.00 Aov Mn Grad: 7.00 TAWANNA Cont.VTI: 1.72 AI Pk Tyler: 3.86 AI [place]: 2.25 LVOT LVOT Pk Tyler: 0.99 LVOT Mn Tyler: 0.66 LVOT VTI: 0.27 LVOT Pk Grad: 4.00 LVOT Mn Grad: 2.00 LVOT Diam: 1.90 LVOT Area: 2.84 Diastolic Function MV Pk E: 0.95 MV Pk A: 1.10 E/A: 0.90 E'Medial: 5.66 E/E' Med: 16.80 E' Laterial: 5.87 E/E' Lat: 16.20 Right Ventricle TAPSE (mm): 24.40 TVS' Tyler: 14.50 Tricuspid Valve TR Pk [place]: 2.61 TR Pk Grad: 27.00 RA Press: 8.00 RVSP: 35.00 Great Vessels Aorta Sinus of Valsalva: 2.58 2.0-3.[address] [place]: 2.10 1.7-3.4 cm Ao Asc: 3.20 2.1-3.4 cm Updated in Other Vendor System with Status of Final Jarret Sams MD electronically signed on 10/13/2023 4:04:26 PM with status of Final
== END ==
LOC: HO.CARD 14:27
PROVIDERS: PCP Internal Medicine; Visit Provider Internal Medicine
DX: R94.31 Abnormal electrocardiogram [ECG] [EKG] (principal)
CPT/HCPCS: 93306

== ENCOUNTER → 2023-10-13 14:35 | Outpatient (BNV) | payer MEDICARE, OTHER, SELFPAY | PROVIDERS: PCP Internal Medicine; Visit Provider Internal Medicine | DX: I35.1 Nonrheumatic aortic (valve) insufficiency (principal); I36.1 Nonrheumatic tricuspid (valve) insufficiency; I51.89 Other ill-defined heart diseases | CPT/HCPCS: 93306 ==

== ENCOUNTER 2023-10-14 07:58 | Inpatient (IN) | payer MEDICARE, OTHER, SELFPAY ==
--- NOTE | 2023-10-08 | ECG_ITS ---
Test Reason : pre op Blood Pressure : / mmHG Vent. Rate : 068 BPM Atrial Rate : 068 BPM P-R Int : 184 ms QRS Dur : 074 ms QT Int : 424 ms P-R-T Axes : 005 -01 020 degrees QTc Int : 450 ms Normal sinus rhythm Cannot rule out Inferior infarct , age undetermined Anterior infarct (cited on or before 11-JUL-2022) Abnormal ECG When compared with ECG of 11-JUL-2022 12:03, Minimal criteria for Inferior infarct are now Present Referred By: Sonam Pruitt Electronically Signed By:CAMELIA CERVANTES MD
[2023-10-08 10:47] VITALS: BP 181/75; PULSE 71; RESP 16; O2SAT 97; BMI 22.8
--- NOTE | 2023-10-08 10:57 | P.CONAN_ITS ---
HPI - Anesthesia Eval Consult details Narrative: 78yo F for L3-4 Oblique Lumbar Interbody Fusion and Revision of posterior Instruments L3-5, 10/14/23 No recent illness No CP/SOB with minimal activity/stairs. Limited only by back pain Factor V def with hx of DVT and PE: Eliquis. PCP follows RA: No rx DM: diet controlled, does not check home POC Asthma: Resolved, was d/t second hand smoke BP up at PAT. Previous readings at other office visits WNL. Pt states pain and nerves Pt with abnormal preop EKG. Needs ECHO to further eval per PCP before can be considered optimized for elective surgery. 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 (Acute) Poor balance (Acute) CKD (chronic kidney disease) stage 3, GFR 30-59 ml/min (Acute) Insomnia (Acute) Acquired hammer toe of right foot (Acute) Elevated LFTs (Acute) Wound infection (Acute) Hair loss (Acute) Osteopenia (Acute) H/O cervical spine surgery (Acute) Minor skin laceration (Acute) Annual physical exam (Acute) Vitamin B 12 deficiency (Acute) Vitamin D deficiency (Acute) Chronic infection of knee joint prosthesis (Acute) Diarrhea (Acute) Knee pain (Acute) Hypothyroidism (Acute) Normal Pap smear (Acute) Degenerative joint disease (DJD) of lumbar spine (Acute) Microscopic colitis (Acute) GERD (gastroesophageal reflux disease) (Acute) Factor V deficiency (Acute) Depression (Acute) Colitis without complication (Acute) Hyperglycemia (Acute) Hyperlipidemia (Acute) HTN (hypertension) (Acute) Past Medical History Medical History Hx of rheumatoid arthritis Hx of ectopic Back pain Arthritis Thyroid disease Diabetes Peptic ulcer Fatty liver Asthma On anticoagulant therapy DVT (deep venous thrombosis) Pulmonary embolism Osteopenia Minor skin laceration Annual physical exam Vitamin B 12 deficiency Vitamin D deficiency Chronic infection of knee joint prosthesis Diarrhea Knee pain Hypothyroidism Normal Pap smear Degenerative joint disease (DJD) of lumbar spine Microscopic colitis GERD (gastroesophageal reflux disease) Factor V deficiency Depression Colitis without complication Hyperglycemia Hyperlipidemia HTN (hypertension) Family History Family History Father Bladder cancer Mother Hypertension Surgical History Surgical History History of dental surgery History of release of tendon Hx of hammer toe correction History of bunionectomy of left great toe Hx of cholecystectomy H/O colonoscopy H/O cervical spine surgery History of lumbar surgery History of carpal tunnel syndrome History of knee replacement History of vagotomy History of total abdominal hysterectomy and bilateral salpingo-oophorectomy Social History Social History Household Members: Spouse Housing: House Are you a primary career and technology education teacher to a significant other at home: No Do you presently have visiting nurse or other home services: No Alcohol intake: never Patient Tobacco Use Status: Never used Tobacco e-Cigarette/Vaping Use: Never Used Second Hand Smoke Exposure: Yes service: No Current occupational status: retired Cognitive needs: No Hearing needs: No Vision needs: Yes Meds Allergies Allergy/AdvReac Type Severity Reaction Status Date / Time cephalexin [CEPHALEXIN] Allergy Severe ANAPHYLAXIS Verified 10/14/23 10:07 nitrofurantoin Allergy Severe ANAPHYLAXIS Verified 10/14/23 10:07 [From MACRODANTIN] albuterol [ALBUTEROL] Allergy Intermediate ITCHING Verified 10/14/23 10:07 Sulfa (Sulfonamide Allergy Intermediate ITCHING Verified 10/14/23 10:07 Antibiotics) [SULFA (SULFONAMIDE ANTIBIOTICS)] acetaminophen [Percocet] Allergy Unknown itchy Verified 10/14/23 10:07 amoxicillin Allergy Unknown itchy and Verified 10/14/23 10:07 diarrhea doxycycline Allergy Unknown itchy Verified 10/14/23 10:07 gluten [GLUTEN] Allergy Unknown Ciliac Verified 10/14/23 10:07 disease indomethacin [Indocin] Allergy Unknown n/a Verified 10/14/23 10:07 lactose Allergy Unknown severe Verified 10/14/23 10:07 diarrhea latex Allergy Unknown itchy rash Verified 10/14/23 10:07 oxycodone [Percocet] Allergy Unknown itchy Verified 10/14/23 10:07 olmesartan AdvReac Intermediate diarrhea Verified 10/14/23 10:07 DAIRY PRODUCTS Allergy Unknown severe Uncoded 10/14/23 10:07 diarrhea ventolin tabs Allergy Unknown Palpitation Uncoded 10/14/23 10:07 s Home Medications ?Medication ?Instructions ?Recorded ?Confirmed ?Last Taken ?Type syringe with needle 1 mL 25 gauge #1 ea 01/20/20 10/09/23 Unknown History x 07/08 vancomycin 125 mg capsule 125 mg PO BID 05/05/20 10/14/23 10/14/23 History blood sugar diagnostic #10 ea 09/08/20 10/09/23 Unknown History cefpodoxime 200 mg tablet 200 mg PO DAILY 09/08/20 10/14/23 10/14/23 History latanoprost 0.005 % eye drops 1 drp ophthalmic (eye) BEDTIME 07/09/22 10/14/23 10/13/23 History timolol maleate 0.5 % eye drops 1 drp ophthalmic (eye) QAM 07/09/22 10/14/23 10/13/23 History metoprolol succinate 25 mg 25 mg PO BID 10/08/23 10/14/23 10/14/23 History tablet,extended release 24 hr rosuvastatin 5 mg tablet 5 mg PO BEDTIME 10/08/23 10/14/23 10/13/23 History gabapentin 100 mg capsule 200 mg PO TID 10/14/23 10/14/23 10/13/23 History Exam Height,Weight and Vital Signs: Height 5 ft Weight 53.07 kg Last Vital Signs Pulse 71 10/08/23 10:47 Resp 16 10/08/23 10:47 BP 181/75 H 10/08/23 10:47 Pulse Ox 97 10/08/23 10:47 O2 Del Method Room Air 10/08/23 10:47 Pertinent Lab Results Pertinent Lab Results: Laboratory Tests 08/05/23 08/06/23 07:24 15:00 WBC 8.4 Hgb 12.0 Hct 35.8 L Plt Count 228 Sodium 141 Potassium 4.8 Chloride 113 H Carbon Dioxide 20 L BUN 35 H Creatinine 1.51 H Narrative Narrative: EKG 10/2023 Vent. Rate : 068 BPM Atrial Rate : 068 BPM P-R Int : 184 ms QRS Dur : 074 ms QT Int : 424 ms P-R-T Axes : 005 -01 020 degrees QTc Int : 450 ms Normal sinus rhythm Cannot rule out Inferior infarct , age undetermined Anterior infarct (cited on or before 11-JUL-2022) Abnormal ECG When compared with ECG of 11-JUL-2022 12:03, Minimal criteria for Inferior infarct are now Present Airway TM Dist: >3cm Neck ROM: Full (s/p c-spine ) Loose/Missing/Broken Teeth: Yes (Molars extracted, 3 front upper teeth implants) Heart: RRR Lungs: CTAB Assessment and Plan Assessment Anesthesia Assessment: Anesthesia Plan Discussed and PAT Visit
[2023-10-14] VITALS (16 sets, daily range): BP systolic 137–192; BP diastolic 43–75; PULSE 55–66; RESP 9–18; TEMP 36–36.4; O2SAT 94–98; BMI 22.8; BMI 23.0
--- NOTE | ~2023-10-14 | FL_ITS ---
EXAMINATION: XR FLUOROSCOPY WITH IMAGES CLINICAL INFORMATION: L3-L4 OLIF. COMPARISON: 07/25/2023 TECHNIQUE: Fluoroscopy Supervised By: Belkis aSucedo Fluoroscopy Time: 1 minute 11 seconds. Cumulative Dose: 20.481 mGy. DAP: 7.8768 Gycm2. Images: 4. FINDINGS: L3-L4 OLIF FL/FL guidance in OR IMPRESSION: OLIF placement
--- OUTSIDE RECORDS SUMMARY | 2023-10-14 08:04 | XMS_ITS ---
Author Organization [facility] Address [address] [place] [address] Care Team Providers Care Sequins Stringer Name Role Phone Jia Parmar MD Primary Care Provider Alexandre Arriaga Unavailable [phone] ALLERGIES Allergen (clinical drug ingredient) Drug/Non Drug Allergy documented on EMR Reaction Allergy Type Onset Date Status albuterol Albuterol Unknown Drug Allergy Active sulfamethoxazole / trimethoprim Bactrim Unknown Drug Allergy Active cephalexin Cephalexin Unknown Drug Allergy Activ e indomethacin Indocin Unknown Drug Allergy Acti ve Lactose Unknown Drug Allergy Active nitrofurantoin Macrodantin Unknown Drug Allergy Active acetaminophen / oxycodone Percocet Restlessness, Nervousness, Feels like she's wired Drug Allergy Active albuterol Ventolin HFA Unknown Drug Allergy Acti ve Adhesive Unknown Allergy Active Gluten Gluten Unknown Allergy Active Latex Latex Unknown Allergy Active REASON FOR VISIT Painful nail(s) aggrevated by shoes and causing difficulty standing/walking. MEDICATIONS Medication SIG (Take, Route, Frequency, Duration) Notes Start Date End Date Status Aerochamber Plus Not -Taking Fish Oil 1000 mg 1 capsule Orally Once a day Not-Taking Esomeprazole Magnesium Not-Taking Cyanocobalamin B12 injection 1 X per M Not-Taking Benzonatate 200 MG 1 capsule Orally Three times a day Not-Taking Lunesta 3 MG 1 tablet immediately before bedtime Orally Once a day Not-Taking Physical Therapy . . . 2-3x/week for 3-4 weeks Not-Taking Colchicine 0.6 MG 1 tablet Orally Once a day for 30 day(s) 05/02/2016 Not-Taking Physical Therapy . . . 2-3x/week for 3-4 weeks 04/10/2016 Not-Taking Physical Therapy . . . 2-3x/week for 3-4 weeks 07/08/2016 Not-Taking Xopenex Not-Taking Gabapentin 300 MG 1 capsule Orally Three times a day for 30 day(s) Not-Taking Lidocaine 5 % 1 patch to intact skin remove after 12 hours Externally Once a day Not-Taking Dramamine Not-Taking Levalbuterol Tartrate Not-Taking Ultram 50 MG 1 tablet as needed Orally every 6 hrs for 5 days 02/19/2017 Not-Taking Nortriptyline HCl 10 MG TK 1 C PO QD HS UTD Orally Not-Taking traMADol HCl Not-Reji ing Physical Therapy 3-4x per week for 3-4 weeks Not-Taking Qvar 40 MCG/ACT 1 puff Inhalation Twice a day Not-Taking ALPRAZolam XR 0.5 MG 1 tablet Orally twice a day Not-Taking Lexapro 5 MG 1 tablet Orally Once a day Not-Taking traMADol HCl 50 MG 1 tablet as needed Orally every 6 hrs for 10 days PRN 03/10/2017 Not-Taking Skelaxin 800 MG 1 tablet Orally Three times a day PRN Not-Taking Timolol Maleate 0.5 % Ophthalmic Not-Taking Gabapentin 300 MG 1 capsule before bedtime Orally Three times a day for 30 days Not-Taking Gabapentin 600 MG TAKE 1 TABLET BY MOUTH THREE TIMES DAILY for 30 Not-Taking Budesonide ER 20 mg Not-Taking NexIUM 40 MG 1 capsule Orally Once a day Not-Taking Gabapentin 600 1 TABLET THREE TIMES A DAY ORALLY 30 DAY(S) for 30 Not-Taking rOPINIRole HCl FOR RLS Not-T aking Extra Depth Orthopedic Shoes (1 Pair) with Customized Heat Molded Multidensity Innersoles (3 Pair) as directed Dx: NIDDM/Polyneuropath y (E11.42), Hammertoe Foot Deformity (M20.41,M20.42), Preulcerative Skin Lesion(s) (L85.1 07/13/2018 Not-Taking Nortriptyline HCl No t-Taking Extra Depth Diabetic Shoes with 3 Pair Custom heat-molded multi-density innersoles for 1 year Dx: 10/23/2016 Not-Taking Xarelto Not-Taking oxyCODONE HCl 5 MG 0.5 tablet as needed Orally every 6 hrs for 5 days 08/08/2022 Not-Taking Extra Depth Diabetic Shoes with 3 Pair Custom heat-molded multi-density innersoles for 1 year Dx: Active Budesonide 3 MG as directed Orally Once a day Not-Taking Vitamin D3 Active Xalatan 0.005 % 1 drop into affected eye in the evening Ophthalmic Once a day Active Gabapentin 300 1 CAPSULE BEFORE BEDTIME THREE TIMES A DAY ORALLY 30 DAYS for 30 Active Multivitamin Adults 50+ Orally Active Synthroid 50 MCG 1 tablet Orally Once a day Active Timolol Hemihydrate 0.5 % 1 drop into affected eye Ophthalmic Once a day Active Prilosec Active Diclofenac gel, used with PSK cream up to 4 times a day Active eliquis Active Clindamycin HCl 300 MG 1 capsule Orally every 6 hrs for 5 days PRN for DENTIST 06/10/2016 Active Crestor 5 MG 1 tablet Orally Once a day Active Caltrate 600+D 600-800 MG-UNIT 1 tablet Orally Twice a day Active Ammonium Molybdate A ctive amLODIPine Besylate 5 MG 1 tablet Orally bid Active Antibiotic Active Spironolactone 25 MG 1 tablet Orally Once a day Active SOCIAL HISTORY Tobacco Use: Social History Observation Description Date Details (start date - stop date) Never Smoker NA - NA Sex Assigned At : Social History Observation Description Sex Assigned At Unknown Tobacco Use/Smoking Question Answer Notes Are you a: nonsmoker Additional Findings: Tobacco Non-User Current no n-smoker Alcohol Screen Question Answer Notes Did you have a drink containing alcohol in the p ast year? No Points 0 Interpretation Negative Tobacco use other than smoking: Question Answer Notes Are you an other tobacco user? No VITAL SIGNS Height 5 ft 0 in in 05/29/2023 Weight 119 lbs 05/29/2023 BMI 23.24 kg/m2 05/29/2023 Blood pressure systolic 120 mm Hg 05/29/19 Blood pressure diastolic 65 mm Hg 024 Encounters Encounter Location Date Provider Diagnosis [facility] [address] [place] [address] 05/29/2023 Alexandre Williamson Pain in right toe(s) M79.674 ; Other hammer toe(s) (acquired), right foot M20.41 ; Type 2 diabetes mellitus with diabetic polyneuropathy E11.42 ; Exostosis of right foot M89.8X7 ; Atherosclerosis of artery of both lower extremities I70.203 ; Tinea unguium B35.1 and Pain in left toe(s) M79.675 ASSESSMENTS Encounter Date Diagnosis Assessment Notes Treatment Notes Treatment Clinical Notes 05/29/2023 Pain in right toe(s) (ICD-10 - M79.674) 05/29/2023 Other hammer toe(s) (acquired), right foot (ICD-10 - M20.41) 05/29/2023 Type 2 diabetes mellitus with diabetic polyneuropathy (ICD-10 - E11.42) 05/29/2023 Exostosis of right foot (ICD-10 - M89.8X7) 05/29/2023 Atherosclerosis of artery of both lower extremities (ICD-10 - I70.203) 05/29/2023 Tinea unguium (ICD-1 0 - B35.1) 05/29/2023 Pain in left toe(s) (ICD-10 - M79.675) PLAN OF TREATMENT Next Appt Details Follow Up: 3 Months, 2 Month s, Reason: Provider Name:Alexandre Williamson, 11/13/2023 12:00:00 PM, [address] [place] [address], [id number], Procedure Notes * Category Sub-Category Detail Notes Debride Nail 6-10 Nail debridement Nail debridem ent performed extensively to reduce/remove overall nail length and girth, subungual debris, and necrotic tissue, by manual and electrical means with use of a nail nipper and/or dremel, to more viable healthy nail plate or bed tissue 6-10. Silver nitrate used for any petechial bleeding as necessary. Patient chooses, no pharmaceutical tx ([id number]) Keratoma Treatment Parring or Cutting o f Benign Hyperkeratotic Lesion(s) 57013 ( >4 Lesions) - The Benign hyperkeratotic lesions, as described above were pared, and/or cut utilizing a sterile #15 blade, tissue nippers, and/or dremel Progress Notes * Examination Category Sub-Category Detail Notes Neurological SENSORY: Neurological exa m demonstrates, reduced vibration sensation, 5.07 monofilament test performed at plantar aspects of 5 varied sites per foot shows sensation, reduced , B/L, Neurological exam demonstrates pop t9 Dermatologic SKIN FINDINGS: Skin exam reveal s Keratotic lesion(s) located at, Plantar, IPJ, TA, T5, SUB MTH (s), 1, 5, B/L, Heel(s), B/L Orthopedic GAIT ABNORMALITY: pronated, abdu cted, B/L DIGITAL DEFORMITIES: Digital contracture , PIPJ, 2-5 B/L, incompl-reducible with WB, or to push-up test, no over, nor underlapping , Reveals pain/swelling/redness/enlargement of DIPJ , T9 MUSCLE STRENGTH: 5/5 all groups in a symmetrical fashion , B/L General Examination GENERAL APPEARANCE: pleasant , alert, well nourished, well developed, well hydrated, with good attention to hygene/body habitus, and in no acute distress ORIENTED: person,place, and ti me Ophthalmology Referral DIABETES EYE EXAM Diabetic Reti nopathy Screening:: Yes 11/23 Findings of Diabetic Eye Exam:: no retin opathy Vascular DP PULSES: 0/4, B/L PT PULSES: 1/4, B/L CAPILLARY FILL TIME: 3 secs. per digit, B/L SKIN TEMPERTURE GRADIENT OF THE LOWER EXTERMITIES: decreased, cool to cool, proximal to dis kate, B/L HAIR GROWTH/TEXTURE/ELASTICITY/TURGOR: d ecreased, B/L , sparce hair growth EDEMA: 2/4, Right 5th toe TELANGECTASIA: absent VARICOSITIES: absent PIGMENTATION: normal, B/L Nails NAILS are: elongated,overgr own,dystrophic,greater than 3mm thick,discolored and friable with crumbly malodorous subungual debris, with pain on palpation, 1-5 B/L History and Physical Notes * HPI (History of Present Illness) Category Sub-Category Detail Notes Toe pain Nature: swelling, tender ness, aching Location: 5th toe, Right foot Duration: several months Course: improved Aggravated by: any pressure, shoes Treatments: bracing/splinting/pa dding Painful Nails Pt States Last PCP Visit: Date:: 024
--- OUTSIDE RECORDS SUMMARY | 2023-10-14 08:04 | XMS_ITS ---
[facility] Organization [facility] Address [address] [facility] [place] [address] Care Team Providers Care Dog Barber Name Role Phone Jia Parmar MD Primary Care Provider Alexandre Arriaga Unavailable [phone] ALLERGIES Allergen (clinical drug ingredient) Drug/Non Drug [...] Duration) Notes Start Date End Date Status Benzonatate 200 MG 1 capsule Orally Three times a day Not-Taking Cyanocobalamin B12 injection 1 X per M Not-Taking Fish Oil 1000 mg 1 capsule Orally Once a day Not-Taking Esomeprazole Magnesium Not-Taking Aerochamber Plus Not -Taking Physical Therapy . . . 2-3x/week for 3-4 weeks 04/10/2016 Not-Taking Physical Therapy . . . 2-3x/week for 3-4 weeks 07/08/2016 Not-Taking Physical Therapy . . . 2-3x/week for 3-4 weeks Not-Taking Colchicine 0.6 MG 1 tablet Orally Once a day for 30 day(s) 05/02/2016 Not-Taking Lunesta 3 MG 1 tablet immediately before bedtime Orally Once a day Not-Taking Dramamine Not-Taking Levalbuterol Tartrate Not-Taking Lidocaine 5 % 1 patch to intact skin remove after 12 hours Externally Once a day Not-Taking Xopenex Not-Taking Gabapentin 300 MG 1 capsule Orally Three times a day for 30 day(s) Not-Taking Qvar 40 MCG/ACT 1 puff Inhalation Twice a day Not-Taking traMADol HCl Not-Reji ing Physical Therapy 3-4x per week for 3-4 weeks Not-Taking Ultram 50 MG 1 tablet as needed Orally every 6 hrs for 5 days 02/19/2017 Not-Taking Nortriptyline HCl 10 MG TK 1 C PO QD HS UTD Orally Not-Taking Skelaxin 800 MG 1 tablet Orally Three times a day PRN Not-Taking traMADol HCl 50 MG 1 tablet as needed Orally every 6 hrs for 10 days PRN 03/10/2017 Not-Taking ALPRAZolam XR 0.5 MG 1 tablet Orally twice a day Not-Taking Lexapro 5 MG 1 tablet Orally Once a day Not-Taking Timolol Maleate 0.5 % Ophthalmic Not-Taking Gabapentin 300 MG 1 capsule before bedtime Orally Three times a day for 30 days Not-Taking NexIUM 40 MG 1 capsule Orally Once a day Not-Taking Gabapentin 600 1 TABLET THREE TIMES A DAY ORALLY 30 DAY(S) for 30 Not-Taking Gabapentin 600 MG TAKE 1 TABLET BY MOUTH THREE TIMES DAILY for 30 Not-Taking Budesonide ER 20 mg Not-Taking Nortriptyline HCl No t-Taking rOPINIRole HCl FOR RLS Not-T aking Extra Depth Orthopedic Shoes (1 Pair) with Customized Heat Molded Multidensity Innersoles (3 Pair) as directed Dx: NIDDM/Polyneuropath y (E11.42), Hammertoe Foot Deformity (M20.41,M20.42), Preulcerative Skin Lesion(s) (L85.1 07/13/2018 Not-Taking Extra Depth Diabetic Shoes with 3 Pair Custom heat-molded multi-density innersoles for 1 year Dx: 10/23/2016 Not-Taking Xarelto Not-Taking Vitamin D3 Active Xalatan 0.005 % 1 drop into affected eye in the evening Ophthalmic Once a day Active Extra Depth Diabetic Shoes with 3 Pair Custom heat-molded multi-density innersoles for 1 year Dx: Active Budesonide 3 MG as directed Orally Once a day Not-Taking oxyCODONE HCl 5 MG 0.5 tablet as needed Orally every 6 hrs for 5 days 08/08/2022 Not-Taking Timolol Hemihydrate 0.5 % 1 drop into affected eye Ophthalmic Once a day Active Gabapentin 300 1 CAPSULE BEFORE BEDTIME THREE TIMES A DAY ORALLY 30 DAYS for 30 Active Multivitamin Adults 50+ Orally Active Prilosec Active Synthroid 50 MCG 1 tablet Orally Once a day Active Caltrate 600+D 600-800 MG-UNIT 1 tablet Orally Twice a day Active Clindamycin HCl 300 MG 1 capsule Orally every 6 hrs for 5 days PRN for DENTIST 06/10/2016 Active Crestor 5 MG 1 tablet Orally Once a day Active Diclofenac gel, used with PSK cream up to 4 times a day Active eliquis Active Ammonium Molybdate A ctive Spironolactone 25 MG 1 tablet Orally Once a day Active amLODIPine Besylate 5 MG 1 tablet Orally bid Active Antibiotic Active SOCIAL HISTORY Tobacco Use: Social History [...] SIGNS Height 5 ft 0 in in 08/21/2023 Weight 119 lbs 08/21/2023 BMI 23.24 kg/m2 08/21/2023 Blood pressure systolic 120 mm Hg 08/21/19 Blood pressure diastolic 65 mm Hg 024 Encounters Encounter Location Date Provider Diagnosis [facility] [address] [place] [address] 08/21/2023 Alexandre Williamson Pain in right toe(s) M79.674 ; Other hammer toe(s) (acquired), right foot M20.41 ; Type 2 diabetes mellitus with diabetic polyneuropathy E11.42 ; Exostosis of right foot M89.8X7 ; Atherosclerosis of artery of both lower extremities I70.203 ; Tinea unguium B35.1 and Pain in left toe(s) M79.675 ASSESSMENTS Encounter Date Diagnosis Assessment Notes Treatment Notes Treatment Clinical Notes 08/21/2023 Pain in right toe(s) (ICD-10 - M79.674) 08/21/2023 Other hammer toe(s) (acquired), right foot (ICD-10 - M20.41) 08/21/2023 Type 2 diabetes mellitus with diabetic polyneuropathy (ICD-10 - E11.42) 08/21/2023 Exostosis of right foot (ICD-10 - M89.8X7) 08/21/2023 Atherosclerosis of artery of both lower extremities (ICD-10 - I70.203) 08/21/2023 Tinea unguium (ICD-1 0 - B35.1) 08/21/2023 Pain in left toe(s) (ICD-10 - M79.675) PLAN OF TREATMENT Next Appt Details Follow Up: 3 Months, 2 Month s, Reason: Provider Name:Alexandre Williamson, 11/13/2023 12:00:00 PM, [address] [place] [address], [id number], Procedure Notes * Category Sub-Category Detail [...] as necessary. Patient chooses, no pharmaceutical tx (90387) Keratoma Treatment Parring or Cutting o f Benign Hyperkeratotic Lesion(s) 64217 ( >4 Lesions) - The Benign hyperkeratotic [...] Aggravated by: any pressure, shoes Treatments: bracing/splinting/pa dding; ht sx 07/[address] Hays Painful Nails Pt States Last PCP Visit: Date:: 024
--- OUTSIDE RECORDS SUMMARY | 2023-10-14 08:05 | XMS_ITS | Patient Health Record ---
Author Organization [facility] Address [address] [place] [address] Care Team Providers Care Lay Out Carpenter Name Role Phone Jia Parmar MD Primary Care Provider Alexandre Arriaga Unavailable [phone] ALLERGIES Allergen (clinical drug ingredient) Drug/Non Drug [...] Latex Latex Unknown Allergy Active REASON FOR REFERRAL No Information MEDICATIONS Medication SIG (Take, Route, Frequency, Duration) Notes Start Date End Date Status Dramamine Not-Taking Levalbuterol Tartrate Not-Taking Lidocaine 5 % 1 patch to intact skin remove after 12 hours Externally Once a day Not-Taking Spironolactone 25 MG 1 tablet Orally Once a day Active Timolol Maleate 0.5 % Ophthalmic Not-Taking amLODIPine Besylate 5 MG 1 tablet Orally bid Active Qvar 40 MCG/ACT 1 puff Inhalation Twice a day Not-Taking Antibiotic Active traMADol HCl Not-Reji ing Physical Therapy 3-4x per week for 3-4 weeks Not-Taking Ultram 50 MG 1 tablet as needed Orally every 6 hrs for 5 days 02/19/2017 Not-Taking Nortriptyline HCl 10 MG TK 1 C PO QD HS UTD Orally Not-Taking Gabapentin 300 MG 1 capsule before bedtime Orally Three times a day for 30 days Not-Taking Skelaxin 800 MG 1 tablet Orally Three times a day PRN Not-Taking traMADol HCl 50 MG 1 tablet as needed Orally every 6 hrs for 10 days PRN 03/10/2017 Not-Taking ALPRAZolam XR 0.5 MG 1 tablet Orally twice a day Not-Taking Lexapro 5 MG 1 tablet Orally Once a day Not-Taking Xarelto Not-Taking NexIUM 40 MG 1 capsule Orally Once a day Not-Taking Gabapentin 600 1 TABLET THREE TIMES A DAY ORALLY 30 DAY(S) for 30 Not-Taking Gabapentin 600 MG TAKE 1 TABLET BY MOUTH THREE TIMES DAILY for 30 Not-Taking Budesonide ER 20 mg Not-Taking rOPINIRole HCl FOR RLS Not-T aking Esomeprazole Magnesium Not-Taking Extra Depth Orthopedic Shoes (1 Pair) with Customized Heat Molded Multidensity Innersoles (3 Pair) as directed Dx: NIDDM/Polyneuropath y (E11.42), Hammertoe Foot Deformity (M20.41,M20.42), Preulcerative Skin Lesion(s) (L85.1 07/13/2018 Not-Taking Aerochamber Plus Not -Taking Extra Depth Diabetic Shoes with 3 Pair Custom heat-molded multi-density innersoles for 1 year Dx: 10/23/2016 Not-Taking Timolol Hemihydrate 0.5 % 1 drop into affected eye Ophthalmic Once a day Active Vitamin D3 Active Xalatan 0.005 % 1 drop into affected eye in the evening Ophthalmic Once a day Active Extra Depth Diabetic Shoes with 3 Pair Custom heat-molded multi-density innersoles for 1 year Dx: Active Budesonide 3 MG as directed Orally Once a day Not-Taking oxyCODONE HCl 5 MG 0.5 tablet as needed Orally every 6 hrs for 5 days 08/08/2022 Not-Taking Nortriptyline HCl No t-Taking Benzonatate 200 MG 1 capsule Orally Three times a day Not-Taking Cyanocobalamin B12 injection 1 X per M Not-Taking Fish Oil 1000 mg 1 capsule Orally Once a day Not-Taking Gabapentin 300 1 CAPSULE BEFORE BEDTIME THREE TIMES A DAY ORALLY 30 DAYS for 30 Active Multivitamin Adults 50+ Orally Active Xopenex Not-Taking Prilosec Active Gabapentin 300 MG 1 capsule Orally Three times a day for 30 day(s) Not-Taking Synthroid 50 MCG 1 tablet Orally Once a day Active Physical Therapy . . . 2-3x/week for 3-4 weeks 04/10/2016 Not-Taking Physical Therapy . . . 2-3x/week for 3-4 weeks 07/08/2016 Not-Taking Physical Therapy . . . 2-3x/week for 3-4 weeks Not-Taking Colchicine 0.6 MG 1 tablet Orally Once a day for 30 day(s) 05/02/2016 Not-Taking Lunesta 3 MG 1 tablet immediately before bedtime Orally Once a day Not-Taking Ammonium Molybdate A ctive Caltrate 600+D 600-800 MG-UNIT 1 tablet Orally Twice a day Active Clindamycin HCl 300 MG 1 capsule Orally every 6 hrs for 5 days PRN for DENTIST 06/10/2016 Active Crestor 5 MG 1 tablet Orally Once a day Active Diclofenac gel, used with PSK cream up to 4 times a day Active eliquis Active IMMUNIZATIONS Vaccine Route Administration Date Status Comme nts COVID-19 Pfizer BioNTech Vaccine Unknown 03/26/2021 Administered 1st 04/14/20 2nd 05/03/20 3rd 12/03/20 Influenza Unknown 12/13/2021 Administered Influenza Unknown 11/01/2022 Administered Pneumococcal Unknown 11/02/2019 Administered SOCIAL HISTORY Tobacco Use: Social History Observation [...] Are you an other tobacco user? No PROBLEMS Problem Type ICD Code Onset Dates Problem Status W/U Status Risk SNOMED Code Notes Problem Primary osteoarthritis, right ankle and foot (M19.071) Active confirmed Localized, pr imary osteoarthritis of the ankle and/or foot (963942067) Problem Primary osteoarthritis, left ankle and foot (M19.072) Active confirmed Localized, pr imary osteoarthritis of the ankle and/or foot (704473695) Problem Other hammer toe(s) (acquired), right foot (M20.41) Active confirmed Acquired hammer toe of right foot (8976894977699484) Problem Type 2 diabetes mellitus with diabetic polyneuropathy (E11.42) Active confirmed Polyneuropathy due to type 2 diabetes mellitus (972993979) Problem Idiopathic gout, right ankle and foot (M10.071) Active confirmed Primary gout (17540770) Problem Idiopathic gout, left ankle and foot (M10.072) Active confirmed Primary gout (63607859) Problem Atherosclerosis of artery of both lower extremities (I70.203) Active confirmed [id number] VITAL SIGNS Blood pressure diastolic 65 mm Hg 08/21/2023 Height 5 ft 0 in in 08/21/2023 Blood pressure systolic 120 mm Hg 08/21/2023 Weight 119 lbs 08/21/2023 BMI 23.24 kg/m2 08/21/2023 PROCEDURES Procedure Date Ordered Date Performed Result Body Sit e 92378-Xgitolhhj, Toes 03/12/2023 N/A Encounters Encounter Location Date Provider Diagnosis [address] [address] 12/11/2022 Alexandre Williamson Pain in right toe(s) M79.674 ; Other hammer toe(s) (acquired), right foot M20.41 ; Type 2 diabetes mellitus with diabetic polyneuropathy E11.42 ; Exostosis of right foot M89.8X7 ; Atherosclerosis of artery of both lower extremities I70.203 ; Tinea unguium B35.1 and Pain in left toe(s) M79.[address] [address] 03/12/2023 Alexandre Williamson Pain in right toe(s) M79.674 ; Other hammer toe(s) (acquired), right foot M20.41 ; Type 2 diabetes mellitus with diabetic polyneuropathy E11.42 ; Exostosis of right foot M89.8X7 ; Atherosclerosis of artery of both lower extremities I70.203 ; Tinea unguium B35.1 and Pain in left toe(s) M79.[address] [address] 05/29/2023 Alexandre Williamson Pain in right toe(s) M79.674 ; Other hammer toe(s) (acquired), right foot M20.41 ; Type 2 diabetes mellitus with diabetic polyneuropathy E11.42 ; Exostosis of right foot M89.8X7 ; Atherosclerosis of artery of both lower extremities I70.203 ; Tinea unguium B35.1 and Pain in left toe(s) M79.675 [facility] [address] [address] 08/21/2023 Alexandre Williamson Pain in right toe(s) M79.674 ; Other hammer toe(s) (acquired), right foot M20.41 ; Type 2 diabetes mellitus with diabetic polyneuropathy E11.42 ; Exostosis of right foot M89.8X7 ; Atherosclerosis of artery of both lower extremities I70.203 ; Tinea unguium B35.1 and Pain in left toe(s) M79.675 ASSESSMENTS Encounter Date Diagnosis Assessment Notes Treatment Notes Treatment Clinical Notes 12/11/2022 Pain in right toe(s) (ICD-10 - M79.674) 03/12/2023 Pain in right toe(s) (ICD-10 - M79.674) 05/29/2023 Pain in right toe(s) (ICD-10 - M79.674) 08/21/2023 Pain in right toe(s) (ICD-10 - M79.674) 08/21/2023 Other hammer toe(s) (acquired), right foot (ICD-10 - M20.41) 05/29/2023 Other hammer toe(s) (acquired), right foot (ICD-10 - M20.41) 05/29/2023 Type 2 diabetes mellitus with diabetic polyneuropathy (ICD-10 - E11.42) 03/12/2023 Other hammer toe(s) (acquired), right foot (ICD-10 - M20.41) 03/12/2023 Type 2 diabetes mellitus with diabetic polyneuropathy (ICD-10 - E11.42) 12/11/2022 Other hammer toe(s) (acquired), right foot (ICD-10 - M20.41) 12/11/2022 Type 2 diabetes mellitus with diabetic polyneuropathy (ICD-10 - E11.42) 05/29/2023 Exostosis of right foot (ICD-10 - M89.8X7) 03/12/2023 Exostosis of right foot (ICD-10 - M89.8X7) 08/21/2023 Type 2 diabetes mellitus with diabetic polyneuropathy (ICD-10 - E11.42) 08/21/2023 Exostosis of right foot (ICD-10 - M89.8X7) 05/29/2023 Atherosclerosis of artery of both lower extremities (ICD-10 - I70.203) 12/11/2022 Exostosis of right foot (ICD-10 - M89.8X7) 03/12/2023 Atherosclerosis of artery of both lower extremities (ICD-10 - I70.203) 03/12/2023 Tinea unguium (ICD-1 0 - B35.1) 12/11/2022 Atherosclerosis of artery of both lower extremities (ICD-10 - I70.203) 05/29/2023 Tinea unguium (ICD-1 0 - B35.1) 08/21/2023 Atherosclerosis of artery of both lower extremities (ICD-10 - I70.203) 05/29/2023 Pain in left toe(s) (ICD-10 - M79.675) 08/21/2023 Tinea unguium (ICD-1 0 - B35.1) 03/12/2023 Pain in left toe(s) (ICD-10 - M79.675) 12/11/2022 Tinea unguium (ICD-1 0 - B35.1) 12/11/2022 Pain in left toe(s) (ICD-10 - M79.675) 08/21/2023 Pain in left toe(s) (ICD-10 - M79.675) PLAN OF TREATMENT Pending Test Test Name Order Date X ray : Foot, left 2V 04/01/2016 X ray : Foot, left 2V 12/25/2015 X ray : Foot, right 2V 12/25/2015 *Uric Acid, Serum 05/02/2016 *Uric Acid, Serum 02/19/2017 *CBC With Differential/Platelet 05/03/19 17 *Sedimentation Rate-Westergren 7 *Sedimentation Rate-Westergren 7 X ray : Foot, left 3V 06/10/2016 X ray : Foot, left 3V 11/20/2020 X ray : Foot, left 3V 04/10/2016 X ray : Foot, right 3V 08/06/2022 X ray : Foot, right 3V 08/04/2017 X ray : Foot, right 3V 07/05/2022 X ray : Foot, right 3V 11/20/2020 X ray : Foot, right 3V 02/19/2017 33362-OXMEAUR NAIL, 6 OR MORE 08/04/2017 72319-WCYUTJA NAIL, 6 OR MORE 10/23/2016 13818-UZYWBYW NAIL, 6 OR MORE 03/10/2017 90464-OQRGLAD NAIL, 6 OR MORE 05/10/2016 52014-HSFBFDC NAIL, 6 OR MORE 11/20/2015 52772-LKMCOWI NAIL, 6 OR MORE 05/12/2017 90297-ZOEEIVW NAIL, 6 OR MORE 07/25/2016 73231-ZJBOADC NAIL, 6 OR MORE 02/14/2016 24059-BRLSUQY NAIL, 6 OR MORE 01/06/2017 32500-GPSHOOT NAIL, 6 OR MORE 2018 95573-OOSETDU NAIL, 6 OR MORE 10/27/2017 13334-QFOOYWF NAIL, 6 OR MORE 07/05/2015 20840-Mlujcuyk Plate 07/27/2015 47380-Vdzhxkny Plate 05/29/2016 91052-Tvpmrswd Plate 06/10/2016 40792- Debride <25 sq cm 08/14/2015 84096- Debride <25 sq cm 09/25/2016 76212- Debride <25 sq cm 06/10/2016 40754- Debride <25 sq cm 10/23/2016 02155-FORD SKIN LESIONS, OVER 4 10/24/19 17 78505-LERI SKIN LESIONS, OVER 4 05/11/19 17 58339-VOHU SKIN LESIONS, OVER 4 11/20/19 16 64891-DYKT SKIN LESIONS, OVER 4 03/10/19 18 20685-KIYF SKIN LESIONS, OVER 4 08/05/19 18 52262-ZUJH SKIN LESIONS, OVER 4 04/13/19 19 07729-RGLI SKIN LESIONS, OVER 4 07/14/19 19 61245-NCBJ SKIN LESIONS, OVER 4 10/13/19 19 64309-YIRD SKIN LESIONS, OVER 4 04/12/19 20 12221-BHRD SKIN LESIONS, OVER 4 07/14/19 44626-BHES SKIN LESIONS, OVER 4 07/25/19 21 32980-WZDR SKIN LESIONS, OVER 4 02/13/20 21 72594-ZLAF SKIN LESIONS, OVER 4 05/15/19 00139-WBAB SKIN LESIONS, OVER 4 04/24/19 39713-MYOZ SKIN LESIONS, OVER 4 01/12/20 19 20767-AMSC SKIN LESIONS, OVER 4 11/21/19 21 59834-HWTE SKIN LESIONS, OVER 4 02/14/20 16 06997-VUMT SKIN LESIONS, OVER 4 01/07/20 54289-IRYN SKIN LESIONS, OVER 4 01/17/20 69055-XTFU SKIN LESIONS, OVER 4 10/18/19 20 72999-QXQO SKIN LESIONS, OVER 4 05/13/19 18 92420-UKBG SKIN LESIONS, OVER 4 07/05/19 16 22600-SLAH SKIN LESIONS, OVER 4 01/13/20 18 03743-CDON SKIN LESIONS, OVER 4 10/28/19 18 40342-RZUD SKIN LESIONS, 2 TO 4 07/26/19 17 50705, F0345-GCBIV/INJECT, JOINT/BURSA 0 04/13/2018 71392, J0702- Neuroma/Injection 11/20/19 16 25417-Bevsvtfqv, Toes 05/15/2016 82915-Wurgtyjph, Toes 05/10/2016 71336-Gmecticgk, Toes 03/12/2023 Next Appt Details Provider Name:Alexandre Williamson, 11/13/2023 12:00:00 PM, [address] [place], [address], Insurance Providers Payer Name Payer Address Payer Phone Subscriber Number Group Number Insured Name Patient Relationship to Insured Coverage Start Date Coverage End Date Medicare [facility] [address] [place] [address] [id number] Lynda Leslie Self - patient is the insured [facility]) [address] [place] [id number] [phone] [id number] Shayan Leslie Spouse - patient is the spouse of the insured MEDICAL (GENERAL) HISTORY Medical History History ICD Code Anemia Anxiety asthma Back,Hip,and Knee pain Cholesterol Cataracts type II diabetes Celiac disease Colitis Crohns disease Deep vein thrombosis Depression Diabetes mellitus Fibromyalgia Glaucoma Hiatal hernia High blood pressure Irritable bowel syndrome Macular degeneration Measles Mumps Neuropathy osteoarthritis Pulmonary embolism Reflux Restless leg syndrome Rheumatoid arthritis Sinus conditions Stomach ulcer Thyroid disorder Vertigo Vitamin B12 deficiency Surgical History Surgery Date(Month/Year) appendectomy 1958 eptopic 1969 hernia 1981 knee surgery, left - 10 surgeries knee surgery, right - 2 surgeries carpal tunnel surgery finger surgery nerve surgery - spine L2 and L4 2013 Stenosis L4- L5 released pinched nerve hysterectomy foot surgery - Ankit/Kadi,HT L2nd cataract removal LT 08/22/16 cataract removal RT 09/16/16 enoscopy 01/03/2017 Vericocele Repair - RT leg 05/09/17 Back surgery 01/19 Knee infection 03/2020 pick line 03/2020 laser surgery 07/05/20 vertebrae neck sx 12/20/20 colonoscopy 11/19/21 Mouth Surgery 06/2022 HT repair R4th,5th toes, Exostectomy R 5 th toe P/B 07/31/2022 Hospitalization History Reason Date(Month/Year) [facility] X 3 Days, Pt sstates she fell, dx: c oncusion 05/18/2017 [facility]- pancolitis 02/13/19 [facility] in [place] /[facility] 5 days after sx ba ck blood clot / c.diff 03/2020 [facility] ER- Fall - police told h er to get knee checked out- couldn't walk 12/03/22
--- OUTSIDE RECORDS SUMMARY | 2023-10-14 08:05 | XMS_ITS ---
Author Organization [facility] Address [address] [facility] [place] [address] Care Team Providers Care Staff Radiation Therapist Name Role Phone Jia Parmar MD Primary Care Provider Alexandre Arriaga Unavailable [phone] ALLERGIES Allergen (clinical drug ingredient) Drug/Non Drug [...] Duration) Notes Start Date End Date Status Esomeprazole Magnesium Not-Taking Aerochamber Plus Not -Taking Cyanocobalamin B12 injection 1 X per M Not-Taking Fish Oil 1000 mg 1 capsule Orally Once a day Not-Taking Benzonatate 200 MG 1 capsule Orally Three times a day Not-Taking Physical Therapy . . . 2-3x/week for 3-4 weeks Not-Taking Colchicine 0.6 MG 1 tablet Orally Once a day for 30 day(s) 05/02/2016 Not-Taking Physical Therapy . . . 2-3x/week for 3-4 weeks 04/10/2016 Not-Taking Physical Therapy . . . 2-3x/week for 3-4 weeks 07/08/2016 Not-Taking Lunesta 3 MG 1 tablet immediately before bedtime Orally Once a day Not-Taking Gabapentin 300 MG 1 capsule Orally Three times a day for 30 day(s) Not-Taking Lidocaine 5 % 1 patch to intact skin remove after 12 hours Externally Once a day Not-Taking Xopenex Not-Taking Dramamine Not-Taking Levalbuterol Tartrate Not-Taking traMADol HCl Not-Reji ing Physical Therapy 3-4x per week for 3-4 weeks Not-Taking Qvar 40 MCG/ACT 1 puff Inhalation Twice a day Not-Taking Ultram 50 MG 1 tablet as needed Orally every 6 hrs for 5 days 02/19/2017 Not-Taking Nortriptyline HCl 10 MG TK 1 C PO QD HS UTD Orally Not-Taking Lexapro 5 MG 1 tablet Orally Once a day Not-Taking Timolol Maleate 0.5 % Ophthalmic Not-Taking traMADol HCl 50 MG 1 tablet as needed Orally every 6 hrs for 10 days PRN 03/10/2017 Not-Taking ALPRAZolam XR 0.5 MG 1 tablet Orally twice a day Not-Taking Skelaxin 800 MG 1 tablet Orally Three times a day PRN Not-Taking NexIUM 40 MG 1 capsule Orally Once a day Not-Taking Gabapentin 600 1 TABLET THREE TIMES A DAY ORALLY 30 DAY(S) for 30 Not-Taking Gabapentin 300 MG 1 capsule before bedtime Orally Three times a day for 30 days Not-Taking Gabapentin 600 MG TAKE 1 TABLET BY MOUTH THREE TIMES DAILY for 30 Not-Taking Budesonide ER 20 mg Not-Taking Extra Depth Diabetic Shoes with 3 Pair Custom heat-molded multi-density innersoles for 1 year Dx: 10/23/2016 Not-Taking Xarelto Not-Taking Nortriptyline HCl No t-Taking rOPINIRole HCl FOR RLS Not-T aking Extra Depth Orthopedic Shoes (1 Pair) with Customized Heat Molded Multidensity Innersoles (3 Pair) as directed Dx: NIDDM/Polyneuropath y (E11.42), Hammertoe Foot Deformity (M20.41,M20.42), Preulcerative Skin Lesion(s) (L85.1 07/13/2018 Not-Taking Vitamin D3 Active Xalatan 0.005 % 1 drop into affected eye in the evening Ophthalmic Once a day Active Extra Depth Diabetic Shoes with 3 Pair Custom heat-molded multi-density innersoles for 1 year Dx: Active Budesonide 3 MG as directed Orally Once a day Not-Taking oxyCODONE HCl 5 MG 0.5 tablet as needed Orally every 6 hrs for 5 days 08/08/2022 Not-Taking Prilosec Active Synthroid 50 MCG 1 tablet Orally Once a day Active Timolol Hemihydrate 0.5 % 1 drop into affected eye Ophthalmic Once a day Active Gabapentin 300 1 CAPSULE BEFORE BEDTIME THREE TIMES A DAY ORALLY 30 DAYS for 30 Active Multivitamin Adults 50+ Orally Active Caltrate 600+D 600-800 MG-UNIT 1 tablet Orally Twice a day Active Clindamycin HCl 300 MG 1 capsule Orally every 6 hrs for 5 days PRN for DENTIST 06/10/2016 Active Crestor 5 MG 1 tablet Orally Once a day Active Diclofenac gel, used with PSK cream up to 4 times a day Active eliquis Active Spironolactone 25 MG 1 tablet Orally Once a day Active amLODIPine Besylate 5 MG 1 tablet Orally bid Active Antibiotic Active Ammonium Molybdate A ctive SOCIAL HISTORY Tobacco Use: Social History Observation [...] SIGNS Height 5 ft 0 in in 03/12/2023 Blood pressure systolic 144 mm Hg 03/12/19 24 Blood pressure diastolic 68 mm Hg 024 PROCEDURES Procedure Date Ordered Date Performed Result Body Sit e 69552-[id number], Toes 03/12/2023 N/A Encounters Encounter Location Date Provider Diagnosis [facility] [address] [place] [address] 03/12/2023 Alexandre Williamson Pain in right toe(s) M79.674 ; Other hammer toe(s) (acquired), right foot M20.41 ; Type 2 diabetes mellitus with diabetic polyneuropathy E11.42 ; Exostosis of right foot M89.8X7 ; Atherosclerosis of artery of both lower extremities I70.203 ; Tinea unguium B35.1 and Pain in left toe(s) M79.675 ASSESSMENTS Encounter Date Diagnosis Assessment Notes Treatment Notes Treatment Clinical Notes 03/12/2023 Pain in right toe(s) (ICD-10 - M79.674) 03/12/2023 Other hammer toe(s) (acquired), right foot (ICD-10 - M20.41) 03/12/2023 Type 2 diabetes mellitus with diabetic polyneuropathy (ICD-10 - E11.42) 03/12/2023 Exostosis of right foot (ICD-10 - M89.8X7) 03/12/2023 Atherosclerosis of artery of both lower extremities (ICD-10 - I70.203) 03/12/2023 Tinea unguium (ICD-1 0 - B35.1) 03/12/2023 Pain in left toe(s) (ICD-10 - M79.675) PLAN OF TREATMENT Pending Test Test Name Order Date [id number], Toes 03/12/2023 Next Appt Details Follow Up: 3 Months, 2 Month s, Reason: Provider Name:Alexandre Williamson, 11/13/2023 12:00:00 PM, [address] [place] [address], [place], [address], Procedure Notes * Category Sub-Category Detail Notes Splints Type of splint Performed toe(s) Spica strapping/splinting for hammertoe realignment to patient tolerance/comfort (82048), T9 Debride Nail 6-10 Nail debridement Nail debridem ent performed extensively to reduce/remove overall nail length and girth, subungual debris, and necrotic tissue, by manual and electrical means with use of a nail nipper and/or dremel, to more viable healthy nail plate or bed tissue 6-10. Silver nitrate used for any petechial bleeding as necessary. Patient chooses, no pharmaceutical tx (34807) Keratoma Treatment Parring or Cutting o f Benign Hyperkeratotic Lesion(s) 05041 ( >4 Lesions) - The Benign hyperkeratotic [...] toe, Right foot Duration: several months Course: unresolved Aggravated by: any pressure, shoes Treatments: previous sx tx, tyl Severity/Quality: moderate, severe Painful Nails Pt States Last PCP Visit: Date:: 023
[2023-10-14] MEDS: methocarbamoL 750 MG TABLET PO ×2 (09:04→22:33)
[2023-10-14] MEDS: Gabapentin 300 MG CAPSULE PO ×2 (09:04→19:50)
[2023-10-14] MEDS: Lactated Ringers 1,000 ML 100 ML IVCONT (09:05)
[2023-10-14] MEDS: vancomycin HCL 1,000 MG in 0.9 % Sodium Chloride 250 ML 270 MG IV (09:30)
[2023-10-14 09:36] LABS: Glucose, Whole Blood 94 mg/dL (60-115)
--- NOTE | 2023-10-14 10:17 | P.CONAN_ITS ---
[facility] Active Problems Active Problems: All Active Problems Abnormal EKG (Acute) Anemia (Acute) Lumbar spinal stenosis due to adjacent segment disease after fusion procedure (Acute) Poor balance (Acute) CKD (chronic kidney disease) stage 3, GFR 30-59 ml/min (Acute) Insomnia (Acute) Acquired hammer toe of right foot (Acute) Elevated LFTs (Acute) Wound infection (Acute) Hair loss (Acute) Osteopenia (Acute) H/O cervical spine surgery (Acute) Minor skin laceration (Acute) Annual physical exam (Acute) Vitamin B 12 deficiency (Acute) Vitamin D deficiency (Acute) Chronic infection of knee joint prosthesis (Acute) Diarrhea (Acute) Knee pain (Acute) Hypothyroidism (Acute) Normal Pap smear (Acute) Degenerative joint disease (DJD) of lumbar spine (Acute) Microscopic colitis (Acute) GERD (gastroesophageal reflux disease) (Acute) Factor V deficiency (Acute) Depression (Acute) Colitis without complication (Acute) Hyperglycemia (Acute) Hyperlipidemia (Acute) HTN (hypertension) (Acute) Past Medical History Medical History Hx of rheumatoid arthritis Hx of ectopic Back pain Arthritis Thyroid disease Diabetes Peptic ulcer Fatty liver Asthma On anticoagulant therapy DVT (deep venous thrombosis) Pulmonary embolism Osteopenia Minor skin laceration Annual physical exam Vitamin B 12 deficiency Vitamin D deficiency Chronic infection of knee joint prosthesis Diarrhea Knee pain Hypothyroidism Normal Pap smear Degenerative joint disease (DJD) of lumbar spine Microscopic colitis GERD (gastroesophageal reflux disease) Factor V deficiency Depression Colitis without complication Hyperglycemia Hyperlipidemia HTN (hypertension) Patient : No Family History Family History Father Bladder cancer Mother Hypertension Family history of problems with anesthesia: No Surgical History Surgical History History of dental surgery History of release of tendon Hx of hammer toe correction History of bunionectomy of left great toe Hx of cholecystectomy H/O colonoscopy H/O cervical spine surgery History of lumbar surgery History of carpal tunnel syndrome History of knee replacement History of vagotomy History of total abdominal hysterectomy and bilateral salpingo-oophorectomy History of Problems with Anesthesia: No Social History Social History Housing: House Are you a primary associate director career services to a significant other at home: No Do you presently have visiting nurse or other home services: No Alcohol intake: never Patient Tobacco Use Status: Never used Tobacco e-Cigarette/Vaping Use: Never Used Second Hand Smoke Exposure: Yes Use of substances other than those prescribed or required for medical reasons: No Substance Use Type Other:: CBD gummies Substance Use Frequency: Occasionally Have you been hit, kicked, punched, or otherwise hurt by someone within the past year? If so, by whom?: No Are you DNR?: No Advance Directives: No Advance Directives Information Provided: No Advance Directives on File: No Recently lost weight without trying: No Eating poorly because of decreased appetite: No Nutrition Risks: No Nutritional Risk Patient : No : No Poor oral hygiene: Yes (implants top two) service: No Current occupational status: retired Cognitive needs: No Hearing needs: No Vision needs: Yes Meds Allergies Allergy/AdvReac Type Severity Reaction Status Date / Time cephalexin [CEPHALEXIN] Allergy Severe ANAPHYLAXIS Verified 10/14/23 10:07 nitrofurantoin Allergy Severe ANAPHYLAXIS Verified 10/14/23 10:07 [From MACRODANTIN] albuterol [ALBUTEROL] Allergy Intermediate ITCHING Verified 10/14/23 10:07 Sulfa (Sulfonamide Allergy Intermediate ITCHING Verified 10/14/23 10:07 Antibiotics) [SULFA (SULFONAMIDE ANTIBIOTICS)] acetaminophen [Percocet] Allergy Unknown itchy Verified 10/14/23 10:07 amoxicillin Allergy Unknown itchy and Verified 10/14/23 10:07 diarrhea doxycycline Allergy Unknown itchy Verified 10/14/23 10:07 gluten [GLUTEN] Allergy Unknown Ciliac Verified 10/14/23 10:07 disease indomethacin [Indocin] Allergy Unknown n/a Verified 10/14/23 10:07 lactose Allergy Unknown severe Verified 10/14/23 10:07 diarrhea latex Allergy Unknown itchy rash Verified 10/14/23 10:07 oxycodone [Percocet] Allergy Unknown itchy Verified 10/14/23 10:07 olmesartan AdvReac Intermediate diarrhea Verified 10/14/23 10:07 DAIRY PRODUCTS Allergy Unknown severe Uncoded 10/14/23 10:07 diarrhea ventolin tabs Allergy Unknown Palpitation Uncoded 10/14/23 10:07 s Active Medications: Current Medications Lactated Ringer's (Lr) 1,000 mls @ 100 mls/hr IVCONT .Q10H JACQUI Last Admin: 10/14/23 09:05 Dose: 100 mls/hr Home Medications ?Medication ?Instructions ?Recorded ?Confirmed ?Last Taken ?Type syringe with needle 1 mL 25 gauge #1 ea 01/20/20 10/09/23 Unknown History x 5/8 vancomycin 125 mg capsule 125 mg PO BID 05/05/20 10/14/23 10/14/23 History blood sugar diagnostic #10 ea 09/08/20 10/09/23 Unknown History cefpodoxime 200 mg tablet 200 mg PO DAILY 09/08/20 10/14/23 10/14/23 History latanoprost 0.005 % eye drops 1 drp ophthalmic (eye) BEDTIME 07/09/22 10/14/23 10/13/23 History timolol maleate 0.5 % eye drops 1 drp ophthalmic (eye) QA 07/09/22 10/14/23 10/13/23 History gabapentin 300 mg capsule 300 mg PO BID 10/08/23 10/14/23 10/13/23 History metoprolol succinate 25 mg 25 mg PO BID 10/08/23 10/14/23 10/14/23 History tablet,extended release 24 hr rosuvastatin 5 mg tablet 5 mg PO BEDTIME 10/08/23 10/14/23 10/13/23 History Exam Height,Weight and Vital Signs: Height 5 ft Weight 53.07 kg Last Vital Signs Temp 97.5 F 10/14/23 08:57 Pulse 66 10/14/23 08:57 Resp 16 10/14/23 08:57 BP 179/59 H 10/14/23 08:57 Pulse Ox 98 10/14/23 08:57 O2 Del Method Room Air 10/14/23 08:57 Pertinent Lab Results Pertinent Lab Results: Laboratory Tests 10/14/23 10/14/23 08:20 09:32 POC Glucose 94 Blood Type AB Positive Antibody Screen NEGATIVE Airway Mallampati Class: II TM Dist: >3cm Neck ROM: Full Heart: RRR Lungs: CTA Assessment and Plan Assessment Anesthesia Assessment: Anesthesia Plan Discussed Final Anesthetic Review Family History of Problems with Anesthesia: No History of Problems with Anesthesia: No NPO: Yes ASA Class: III Patient Risk: Intermediate Procedure Risk: Intermediate Anesthetic Plan Anesthetic Plan: GA Disposition: Standard PACU
--- NOTE | 2023-10-14 11:52 | MHC.SHP ---
Pre-Procedural Eval Section A - 24 Hr Update-Section A only Date of Service: 10/14/23 The patient is an INPATIENT: No Changes since office visit: No Cold of Flu in the past 2 weeks, No New Medical Problems, No Changes in Medication and No Patient answered all questions The patient has been examined within 24 hours of the surgical procedure. The History & Physical has been completed within 30 days and I have reviewed it.: No Section B - Complete if H&P > 30 days Chief Complaint: s/p L3-4 lumbar fusion Allergies: Allergies Allergy/AdvReac Type Severity Reaction Status Date / Time cephalexin [CEPHALEXIN] Allergy Severe ANAPHYLAXIS Verified 10/14/23 10:07 nitrofurantoin Allergy Severe ANAPHYLAXIS Verified 10/14/23 10:07 [From MACRODANTIN] albuterol [ALBUTEROL] Allergy Intermediate ITCHING Verified 10/14/23 10:07 Sulfa (Sulfonamide Allergy Intermediate ITCHING Verified 10/14/23 10:07 Antibiotics) [SULFA (SULFONAMIDE ANTIBIOTICS)] acetaminophen [Percocet] Allergy Unknown itchy Verified 10/14/23 10:07 amoxicillin Allergy Unknown itchy and Verified 10/14/23 10:07 diarrhea doxycycline Allergy Unknown itchy Verified 10/14/23 10:07 gluten [GLUTEN] Allergy Unknown Ciliac Verified 10/14/23 10:07 disease indomethacin [Indocin] Allergy Unknown n/a Verified 10/14/23 10:07 lactose Allergy Unknown severe Verified 10/14/23 10:07 diarrhea latex Allergy Unknown itchy rash Verified 10/14/23 10:07 oxycodone [Percocet] Allergy Unknown itchy Verified 10/14/23 10:07 olmesartan AdvReac Intermediate diarrhea Verified 10/14/23 10:07 DAIRY PRODUCTS Allergy Unknown severe Uncoded 10/14/23 10:07 diarrhea ventolin tabs Allergy Unknown Palpitation Uncoded 10/14/23 10:07 s Review of Systems Sugical H&P ROS: Negative: Constitution, Cardiovascular, Respiratory, Neurological, Psychiatric, Hem-Onc, Allergic/Immunologic, Gastrointestinal, Genitourinary, Musculoskeletal, Integumentary, Endocrine and Eyes/Ears/Nose/Throat Exam Surgical H&P Exam: Normal: HEENT, Normal: Heart, Normal: Lungs, Normal: Extremities, Normal: Abdomen, Normal: Skin and Normal: Neurological (awake, alert,oriented x 3e ) Plan Diagnosis/Plan: Unchanged L3-4 Oblique lumbar interbody fusion with revision of posterior instrumentation Time Spent With Patient Time: Total time managing care of this patient today __5__ minutes.
--- NOTE | 2023-10-14 14:42 | W.PM.OPN ---
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 I have explained the nature, purpose and benefits of the operation. I have discussed the risks and benefit of the operation including possible complications or adverse events with patient/family. Alternative(s) were discussed with the patient with their relative benefits and risks as well as the consequences of not accepting the operation were included in obtaining consent. Surgeon: DEIDRA MENENDEZ MD, PHD Procedure Assisted By: glenis Lipscomb Description of Procedure This 78-year-old female suffering from back pain and neurogenic claudication due to adjacent degenerative disc disease L3-4 with spinal stenosis. The patient was offered an oblique lumbar interbody fusion L3-4. The procedure complications were explained. The patient was consented. The patient was brought to the operating room and endotracheally intubated. The patient was turned in a lateral position with the left side up. Prep and drape was done followed by timeout. A small incision was made in the left lower abdominal quadrant. The muscle fascia was opened after which the 3 muscle layer was split to enter the retroperitoneal space. Dilators were docked in the anterior one third of the L3-4 disc space followed by a retractor. The retractor was opened. The L3-4 disc space was exposed. An annulotomy was done after which an elevator Chan was used to release the disc material from its endplates and to perforate the contralateral side. A partial discectomy was done. An 8 mm 10 mm height trial implant was inserted. The discectomy was completed. The endplates were prepared. An 12 x 45 mm with 6 degree lordosis CTL cage filled with allograft was inserted into the disc space under fluoroscopic guidance. This resulted in an increase of the foraminal height and central canal diameter. The retractor was removed. Hemostasis was done. The incision was closed in 2 layers. Steri-Strips used to approximate incision. An OpSite with Tegaderm was used to cover the incision. This marked first part of the procedure. The patient was turned prone on the Uli spine table. 2C arms were installed for fluoroscopy. Prep and drape was done followed by a second timeout. The previous 2 paramedian incisions were opened to expose the previous placed L4-5 instrumentation. The locking caps were removed followed by retrieval of the rods. The L5 screws were removed and the L4 screws were left in situ. Then a pediguard tap was used to create a transpedicular trajectory into the L3 vertebral body. A K wire was placed. A specially designed instrument was advanced over the K wire to decorticate the posterolateral gutter in preparation for the posterolateral fusion. Pedicle screws with a diameter of 6.5 x 40 mm were advanced over the K wire into the L3 pedicles after which the K wire were removed. Pedicle screws were connected with 45 mm phi bilaterally and locked down with locking caps. The extension towers were removed. The posterolateral gutter was filled with allograft to complete the posterolateral L3-4 fusion Hemostasis was done and the incision was closed in 2 layers. Steri-Strips were used to approximate the incision. An OpSite were taken and was used to cover the incision. All sponge and needle counts were correct. Patient was extubated and transferred in stable is to recovery room. Anesthesia: General Estimated Blood Loss (ml): 25 Duration of Surgery: 1 hour 30 minutes Complications: None Postoperative Plan: Admit to inpatient for observation
[2023-10-14] MEDS: fentaNYL citrate/PF 100 MCG/2 ML VIAL 25 MCG IVPUSH ×2 (16:34→16:39)
[2023-10-14 16:59] LABS: Glucose, Whole Blood 122 mg/dL (60-115)
[2023-10-14] MEDS: 0.9 % Sodium Chloride 1,000 ML 75 ML IVCONT (18:05)
[2023-10-14] MEDS: HYDROmorphone HCl 2 MG TABLET PO (18:28)
--- NOTE | 2023-10-14 18:41 | PHA.MEDREC ---
Pharmacy Consult ? Medication Reconciliation Pharmacy has reviewed the medication reconciliation completed by nursing. Spoke with patient, she takes 200mg Gabapentin TID, for a TTD of 600mg. Patient is on vanco and cefpoxime indefinitely. Patient last took her all her medications last night.
[2023-10-14] MEDS: Docusate Sodium 100 MG CAPSULE PO (19:50)
[2023-10-14] MEDS: Atorvastatin Calcium 20 MG TABLET PO (19:50)
[2023-10-14] MEDS: Metoprolol Succinate ER 25 MG TAB.ER.24H PO (19:50)
[2023-10-14] MEDS: amLODIPine Besylate 5 MG TABLET PO (19:50)
[2023-10-14] MEDS: Latanoprost 0.005 % Ophth Sol 2.5 ML DROPS 1 DROP EYE-BOTH (20:55)
[2023-10-14] MEDS: HYDROmorphone HCl 1 MG/ML SYRINGE IVPUSH (22:34)
[2023-10-15] MEDS: vancomycin HCL 1,000 MG in 0.9 % Sodium Chloride 250 ML 270 MG IV (01:39)
[2023-10-15] MEDS: HYDROmorphone HCl 1 MG/ML SYRINGE IVPUSH ×2 (02:21→07:53)
[2023-10-15 03:08] VITALS: BP 143/65; PULSE 74; RESP 17; TEMP 36.2; O2SAT 97
[2023-10-15] MEDS: Omeprazole 40 MG CAPSULE.DR PO (05:47)
[2023-10-15] MEDS: Levothyroxine Sodium 50 MCG TABLET PO (05:47)
[2023-10-15] MEDS: 0.9 % Sodium Chloride 1,000 ML 75 ML IVCONT (05:50)
--- NOTE | 2023-10-15 07:01 | HO.NEURO.PN ---
Neurosurgery Operative Note Date of Service: 10/15/23 Narrative: POD: 1 Procedure: L3-4 OLIF Lynda was seen sitting upright in bed this morning on 3 . She reports that she was having difficulty with low back pain last night. She denies any increased shooting pains into her lower extremities. In addition to her pain, she also had some elevation of her blood pressure which are service was made aware of by nursing staff last night. She has been up out of bed, voiding well, and tolerating her current diet. Her allergy list makes pain control with typical postoperative pain agents difficult. She is currently taking p.o. Dilaudid with IV Dilaudid for breakthrough pain. In addition to this she is also taking methocarbamol. Afebrile, vital signs stable. Full strength 5/5 in bilateral LE's. Back dressings have some staining without signs of hematoma. No active sanguineous drainage. Area is dry. Plan: Patient meets criteria to be medically discharged home. He was seen at bedside with Dr. Ramirez. Plan: Lynda is POD:1 s/p L3-4 OLIF. Uncomplicated surgery, everything went well. Patient reports her pain is much better today. Blood pressure has been better controlled since last night with her Norvasc (most recent 143/65). I will add on Acetaminophen to her current pain regimen as the allergy of marisol is for percocet and is most likely a result of the oxycodone not the tylenol. At this point she is medically cleared to be discharged home. I sent in a prescription of oxycodone to the [facility] on [address] in [place]. Giovanni Ramirez MD,PhD [facility]
[2023-10-15 07:29] VITALS: BP 149/68; PULSE 76; RESP 16; TEMP 36; O2SAT 99
--- NOTE | 2023-10-15 07:43 | P.DS_ITS ---
DS: Providers Provider Date of Service: 10/15/23 Date of admission: 10/14/23 07:58 Primary care physician: Jia Parmar MD DS: Summary Time Attestation Discharge Coordination Time (in mins): 15 Quality: Safe Use of Opioids Does Pt have an Active Cancer Diagnosis on the Problem List?: No Quality: Stroke Does the patient have a stroke diagnosis?: No Physical Exam Vital Signs: Vital Signs: Last Vital Signs Temp 96.8 F 10/15/23 07:29 Pulse 76 10/15/23 07:29 Resp 16 10/15/23 07:29 BP 149/68 H 10/15/23 07:29 Pulse Ox 99 10/15/23 07:29 O2 Del Method Nasal Cannula 10/15/23 07:29 O2 Flow Rate 3 10/15/23 07:29 BMI result Body Mass Index 23.0 DS: Data Data Completed and Pending Labs on day of discharge: Laboratory Results - last 24 hr 10/14/23 10/14/23 10/14/23 08:20 09:32 16:55 POC Glucose 94 122 H Blood Type AB Positive Antibody Screen NEGATIVE Discharge Plan Discharge Anticipated Discharge Date/Time: 10/15/23 07:44 Patient Disposition: Home, Self-Care Discharge Diagnosis: S/P L3-4 OLIF Referrals: Jia Parmar MD [Primary Care Provider] - 1 Week Discharge Medications: New hydromorphone 2 mg tablet 2 mg PO Q6H PRN (Reason: severe pain (scale score 7-10)) Qty: 30 0RF Rx Instructions: Partial Fill upon patient request. No Action (DME) BD Insulin Syringe 1 mL 25 gauge x 5/8 syringe See Rx Instructions .ROUTE .MEDSUPPLY Qty: 12 4RF Rx Instructions: use for monthly injections (DME) lancets [Accu-Chek Fastclix Lancet Drum] [facility] See Rx Instructions .ROUTE .MEDSUPPLY Qty: 100 3RF Rx Instructions: Test blood sugar once a day (DME) syringe with needle, safety 1 mL 25 gauge x 5/8 syringe See Rx Instructions .ROUTE .MEDSUPPLY Qty: 4 3RF Rx Instructions: Use to inject B12 monthly cyanocobalamin (vitamin B-12) 1,000 mcg/mL solution 1,000 mcg IM Q4W Qty: 10 1RF amlodipine 5 mg tablet 5 mg PO BID Qty: 180 3RF trazodone 50 mg tablet 50 mg PO BEDTIME PRN (Reason: sleep) Qty: 30 2RF Eliquis 5 mg tablet 5 mg PO BID Qty: 180 3RF loperamide 2 mg capsule 2 mg PO BID PRN (Reason: loose stool) Qty: 90 1RF omeprazole 40 mg capsule,delayed release(DR/EC) 40 mg PO BID Qty: 180 3RF metoprolol succinate 25 mg tablet extended release 24 hr 25 mg PO BID rosuvastatin 5 mg tablet 5 mg PO BEDTIME gabapentin 100 mg Capsule 200 mg PO TID (DME) BD Tuberculin Syringe 1 mL 25 gauge x 5/8 syringe See Rx Instructions .ROUTE .MEDSUPPLY Qty: 1 Rx Instructions: As directed vancomycin 125 mg capsule 125 mg PO BID cefpodoxime 200 mg tablet 200 mg PO DAILY (DME) Accu-Chek Guide test strips Strip See Rx Instructions .ROUTE DAILY Qty: 10 Rx Instructions: As directed spironolactone 25 mg tablet 12.5 mg PO DAILY Qty: 90 3RF sertraline 25 mg tablet 25 mg PO DAILY Qty: 30 1RF timolol maleate 0.5 % drops 1 drp ophthalmic (eye) QAM latanoprost 0.005 % drops 1 drp ophthalmic (eye) BEDTIME levothyroxine 50 mcg tablet 50 mcg PO DAILY Qty: 90 3RF Discharge Orders: Discharge Order (Routine); Ordered 10/15/23 Ordered By: Giovanni Richardson Diet: Advance to usual diet Activity on Discharge: As tolerated Stand Alone Forms: Patient Portal Discharge page Print Language: Kinyarwanda Care Plan Goals: Return to normal activity as tolerated Health Concerns: None Plan of Treatment: Follow-up in clinic in 2-3 weeks Assessment: POD: 1 Procedure: L3-4 CAMILLE Howell was seen sitting upright in bed this morning on . She reports that she was having difficulty with low back pain last night. She denies any increased shooting pains into her lower extremities. In addition to her pain, she also had some elevation of her blood pressure which are service was made aware of by nursing staff last night. She has been up out of bed, voiding well, and tolerating her current diet. Her allergy list makes pain control with typical postoperative pain agents difficult. She is currently taking p.o. Dilaudid with IV Dilaudid for breakthrough pain. In addition to this she is also taking methocarbamol. Afebrile, vital signs stable. Full strength 5/5 in bilateral LE's. Back dressings have some staining without signs of hematoma. No active sanguineous drainage. Area is dry. Plan: Patient meets criteria to be medically discharged home. He was seen at bedside with Dr. Ramirez. Plan: Lynda is POD:1 s/p L3-4 OLIF. Uncomplicated surgery, everything went well. Patient reports her pain is much better today. Blood pressure has been better controlled since last night with her Norvasc (most recent 143/65). I will add on Acetaminophen to her current pain regimen as the allergy of itchy is for percocet and is most likely a result of the oxycodone not the tylenol. At this point she is medically cleared to be discharged home. I sent in a prescription of oxycodone to the [facility] on [facility] in [place]. Patient was seen at bedside with the attending neurosurgeon Dr. James Ramirez MD,PhD [facility]
[2023-10-15] MEDS: Docusate Sodium 100 MG CAPSULE PO (08:12)
[2023-10-15] MEDS: Metoprolol Succinate ER 25 MG TAB.ER.24H PO (08:12)
[2023-10-15] MEDS: Sertraline HCL 25 MG TABLET PO (08:12)
[2023-10-15] MEDS: Spironolactone 25 MG TABLET 12.5 MG PO (08:12)
[2023-10-15] MEDS: Gabapentin 300 MG CAPSULE PO (08:13)
[2023-10-15] MEDS: amLODIPine Besylate 5 MG TABLET PO (08:13)
[2023-10-15 08:14] VITALS: BP 149/68; PULSE 76; O2SAT 99
[2023-10-15] MEDS: timoloL maleate 0.5 % Oph Sol 5 ML DRBTL 1 DROP EYE-BOTH (08:14)
--- NOTE | 2023-10-15 08:40 | MHC.CM.PN ---
IMM 10/14. Pt self-care, lives at home with her . Pts daughter will transport her home. Pt states he is her HCP, copy requested. PCP: Dr. Jia Parmar
--- NOTE | 2023-10-15 10:07 | HO.POSTANES ---
Post Anesthesia Evaluation Post Anesthesia Evaluation Date of Service: 10/14/23 Vital Signs: Vital Signs Temp Pulse Resp BP Pulse Ox O2 Del Method O2 Flow Rate 10/15/23 08:14 76 149/68 H 99 10/15/23 07:29 96.8 F 76 16 149/68 H 99 Nasal Cannula 3 10/15/23 03:08 97.1 F 74 17 143/65 H 97 Nasal Cannula 3 Anesthesia: General Endotracheal-GETA Mental Status: Awake Pain Control: Satisfactory Nausea/Vomiting: None Hydration: Adequate Anesthesia-Related Issues: No Anes. Related Issues
[2023-10-15] MEDS: HYDROmorphone HCl 2 MG TABLET PO (11:04)
--- NOTE | 2023-10-15 11:51 | W.MHC.F2F ---
Service Date Service Date: 10/15/23 Encounter Date of encounter: 10/15/23 Reasons for Services Signs and symptoms assessed: s/p L3-4 OLIF Reason for nursing home: neurological assessment, wound care, medication management, medication treatment and teach disease management Homebound: Leaving the home is medically contraindicated at this time without the asist of a device and/or another person due th the listed conditions above and below. Reason homebound: unsteady gait / fall risk, pain with ambulation, pain with transfers and poor balance / fall risk Certification: Based on the above findings, I certify that this patient is confined to the home and needs intermittent nursing home care, physical therapy and/or speech therapy, or continues to need occupational therapy. The patient is under my care, and I have initiated the establishment of the plan of care. The patient will be followed by a physician who will periodically review the plan of care. Time Spent With Patient Time: Total time managing care of this patient today ___10_ minutes.
--- NOTE | 2023-10-15 14:51 | MHC.CM.PN ---
Pt is medically cleared for discharge home with new [facility] services, pts daughter will transport her home.
== END 2023-10-15 11:54 | disposition home health service (06) | DRG 460 ==
LOC: HO.SSSA 12:00 → HO.S3 17:27
PROVIDERS: Neurological Surgery; Admitting Provider Physician Assistant; PCP Internal Medicine; Visit Provider Physician Assistant
PROC: 0SG00A0 Fusion of Lumbar Vertebral Joint with Interbody Fusion Device, Anterior Approach, Anterior Column, Open Approach (ICD-10-PCS; principal; 2023-10-14 11:00)
DX: M48.062 Spinal stenosis, lumbar region with neurogenic claudication (principal); M51.36 Other intervertebral disc degeneration, lumbar region; E03.9 Hypothyroidism, unspecified; Z88.2 Allergy status to sulfonamides; Z91.040 Latex allergy status; Z79.01 Long term (current) use of anticoagulants; Z79.890 Hormone replacement therapy; Z79.899 Other long term (current) drug therapy
CPT/HCPCS: 82947; 86850; 86900; 86901; 93005; 93306; 97162; C1713; C1889; C9290; J0131; J0665; J1100; J1170; J1200; J1596; J2250; J2405; J2704; J3010; J3370; L8699

== ENCOUNTER → 2023-10-14 07:58 | Outpatient (BNV) | payer MEDICARE, OTHER, SELFPAY | PROVIDERS: Admitting Provider Physician Assistant; PCP Internal Medicine; Visit Provider Neurological Surgery | DX: M51.36 Other intervertebral disc degeneration, lumbar region (principal); M47.816 Spondylosis without myelopathy or radiculopathy, lumbar region | CPT/HCPCS: 20930; 22558; 22612; 22840; 22853; 99024; 99499; G0180 ==

== ENCOUNTER → 2023-11-04 14:24 | Outpatient (BNVA) | payer MEDICARE, OTHER, SELFPAY | PROVIDERS: PCP Internal Medicine; Visit Provider Physician Assistant ==

== ENCOUNTER 2023-11-06 12:57 | Outpatient (AMB) | payer MEDICARE, OTHER, SELFPAY ==
[2023-11-06 12:58] VITALS: BP 144/66; PULSE 72; O2SAT 97; BMI 22.3
--- NOTE | 2023-11-06 12:58 | MHC.PC.OV ---
Vital Signs 11/06/23 12:58 Height 5 ft Weight 114 lb BMI 22.3 BP 144/66 H Blood Pressure Location Lt brachial Position Sitting Pulse 72 Pulse Source Pulse Oximeter Pulse Oximetry (%) 97 Oxygen Delivery Method Room Air Intake Visit Reasons: Hospital follow up Intake Note: Pt is here today for a hospital follow up visit. Allergies cephalexin [CEPHALEXIN] Allergy (Severe, Verified 10/14/23 10:07) ANAPHYLAXIS nitrofurantoin [From MACRODANTIN] Allergy (Severe, Verified 10/14/23 10:07) ANAPHYLAXIS albuterol [ALBUTEROL] Allergy (Intermediate, Verified 10/14/23 10:07) ITCHING Sulfa (Sulfonamide Antibiotics) [SULFA (SULFONAMIDE ANTIBIOTICS)] Allergy (Intermediate, Verified 10/14/23 10:07) ITCHING acetaminophen [Percocet] Allergy (Unknown, Verified 10/14/23 10:07) itchy amoxicillin Allergy (Unknown, Verified 10/14/23 10:07) itchy and diarrhea doxycycline Allergy (Unknown, Verified 10/14/23 10:07) itchy gluten [GLUTEN] Allergy (Unknown, Verified 10/14/23 10:07) Ciliac disease indomethacin [Indocin] Allergy (Unknown, Verified 10/14/23 10:07) n/a lactose Allergy (Unknown, Verified 10/14/23 10:07) severe diarrhea latex Allergy (Unknown, Verified 10/14/23 10:07) itchy rash oxycodone [Percocet] Allergy (Unknown, Verified 10/14/23 10:07) itchy olmesartan Adverse Reaction (Intermediate, Verified 10/14/23 10:07) diarrhea DAIRY PRODUCTS Allergy (Unknown, Uncoded 10/14/23 10:07) severe diarrhea ventolin tabs Allergy (Unknown, Uncoded 10/14/23 10:07) Palpitations Medication List - Last Reconciled 11/06/23 by Jia Parmar MD amlodipine 5 mg PO BID apixaban (Eliquis) 5 mg PO BID blood sugar diagnostic As directed cefpodoxime 200 mg PO DAILY cyanocobalamin (vitamin B-12) 1,000 mcg IM Q4W gabapentin 200 mg (2 x 100 mg) PO TID hydralazine 10 mg PO BID hydromorphone 2 mg PO Q6H PRN insulin syringe-needle U-100 (BD Insulin Syringe) use for monthly injections lancets (Accu-Chek Fastclix Lancet Drum) Test blood sugar once a day latanoprost 0.005% 1 drp ophthalmic (eye) BEDTIME levothyroxine 50 mcg PO DAILY loperamide 2 mg PO BID PRN metoprolol succinate ER 25 mg PO BID omeprazole 40 mg PO BID rosuvastatin 5 mg PO BEDTIME sertraline 25 mg PO DAILY spironolactone 12.5 mg (1/2 x 25 mg) PO DAILY syringe with needle As directed syringe with needle, safety Use to inject B12 monthly timolol maleate 0.5% 1 drp ophthalmic (eye) QAM trazodone 50 mg PO BEDTIME PRN vancomycin 125 mg PO BID Tobacco use date assessed: 09/17/23 Dental Screening Dental Screen Date: 07/15/23 [facility] Hospital follow up HPI Details Patient presents for the follow-up this lumbar spine fusion. She complains of right sided lower back and right leg pain since the surgery. She follows up with neurosurgeon. Patient denies weakness or numbness in extremities. Patient was noted to have elevated blood pressure on a few follow-up visits. She denies chest pain shortness of breath palpitations [facility] Medical History Hx of rheumatoid arthritis Hx of ectopic Back pain Arthritis Thyroid disease Diabetes Peptic ulcer Fatty liver Asthma On anticoagulant therapy DVT (deep venous thrombosis) Pulmonary embolism Osteopenia Minor skin laceration Annual physical exam Vitamin B 12 deficiency Vitamin D deficiency Chronic infection of knee joint prosthesis Diarrhea Knee pain Hypothyroidism Normal Pap smear Degenerative joint disease (DJD) of lumbar spine Microscopic colitis GERD (gastroesophageal reflux disease) Factor V deficiency Depression Colitis without complication Hyperglycemia Hyperlipidemia HTN (hypertension) Surgical History History of dental surgery History of release of tendon Hx of hammer toe correction History of bunionectomy of left great toe Hx of cholecystectomy H/O colonoscopy H/O cervical spine surgery History of lumbar surgery History of carpal tunnel syndrome History of knee replacement History of vagotomy History of total abdominal hysterectomy and bilateral salpingo-oophorectomy Family History Father Bladder cancer Mother Hypertension Social History Household Members: Spouse Housing: House Are you a primary neonatal intensive care nurse to a significant other at home: No Do you presently have visiting nurse or other home services: No Alcohol intake: never Patient Tobacco Use Status: Never used Tobacco e-Cigarette/Vaping Use: Never Used Second Hand Smoke Exposure: Yes service: No Current occupational status: retired Cognitive needs: No Hearing needs: No Vision needs: Yes Questionnaire PHQ-9 Over the last 2 weeks, how often have you been bothered by any of the following problems? 1. Little interest or pleasure in doing things: not at all 2. Feeling down, depressed, or hopeless: not at all 3. Trouble falling or staying asleep, or sleeping too much: not at all 4. Feeling tired or having little energy: not at all 5. Poor appetite or overeating: not at all 6. Feeling bad about yourself - or that you are a failure or have let yourself or your family down: not at all 7. Trouble concentrating on things, such as reading the newspaper or watching television: not at all 8. Moving or speaking so slowly that other people could have noticed. Or the opposite - being so fidgety or restless that you have been moving around a lot more than usual: not at all 9. Thoughts that you would be better off or of hurting yourself in some way: not at all Total score: 0 Depression Screening Interpretation: Negative Depression Screening Done: Yes 43659 - PHQ-9 Billing: Yes Source: Developed by Drs. Andrew Pompa, Tasha Barnard, Jonathan Minor and colleagues, with an educational farooq from [employer] Thrive Questionnaire Date Thrive assessed: 10/15/23 I am a: Patient What is your living situation today?: I have a steady place to live Within the past 12 months, did the food you bought not last and you didn't have the money to get more?: Never true Within the past 12 months, did you worry whether your food would run out before you got money to buy more?: Never true Do you have trouble paying for medicines?: No Do you have trouble getting transportation to medical appointments?: No Do you have trouble paying your heating and electricity bill?: No Do you have trouble taking care of your child, family member or friend?: No Do you have trouble with day-to-day activities such as bathing, preparing meals, shopping, managing finances, etc.?: No Are you currently unemployed and looking for a job?: No Are you interested in more education?: No Please select the resources that you would like help with: None Currently or been in a relationship where the following occur: No concerns reported THRIVE Score: 0 AUDIT C Alcohol Use Questionnaire (AUDIT-C) 1. How often do you have a drink containing alcohol?: Never 2. How many drinks containing alcohol do you have on a typical day when you are drinking?: 1 or 2 3. How often do you have six or more drinks on one occasion?: Never Total Score: 0 ROSALINDA-7 AMB Questionnaire ROSALINDA-7 Date ROSALINDA - 7 assessed: 10/09/23 Feeling nervous, anxious, or on edge: 0 = Not at all Not being able to stop or control worryin = Not at all Worrying too much about different things: 0 = Not at all Trouble relaxin = Not at all Being so restless that it is hard to sit still: 0 = Not at all Becoming easily annoyed or irritable: 0 = Not at all Feeling afraid as if something awful might happen: 0 = Not at all Total ROSALINDA-7 score (0-4 normal; 5-9 mild; 10-14 moderate; 15-21 severe): 0 Source: Developed by Drs. Andrew Pompa, Tasha Barnard, Jonathan Minor and colleagues, with an educational farooq from [employer] Review of Systems Const All systems reviewed & are unremarkable except as noted in HPI and below Eyes Reports no additional complaints Card Reports no additional complaints Resp Reports no additional complaints GI Reports no additional complaints Physical exam (Primary Care) Vital Signs: Last Vital Signs Pulse 72 11/06/23 12:58 BP 144/66 H 11/06/23 12:58 Pulse Ox 97 11/06/23 12:58 Oxygen Delivery Method Room Air 11/06/23 12:58 BMI result Body Mass Index 22.3 Tobacco/Smoking Status: Tobacco use Status Tobacco use date assessed 09/17/23 11/06/23 13:01 Patient Tobacco Use Status Never used Tobacco 11/06/23 13:01 e-Cigarette/Vaping Use Never Used 11/06/23 13:01 PHQ-9: PHQ-9 Score PHQ-9: Total score 0 11/06/23 13:01 Depression Screening Interpretation: Negative Thrive Assessment: Date of Thrive Assessment Date Thrive assessed 10/15/23 11/06/23 13:01 Currently or been in a relationship where the following occur: No concerns reported Const General: no acute distress Eyes General: appearance normal, both eyes and all related structures Resp Effort & Inspection: normal respiratory effort Auscultation: clear to auscultation bilaterally Cardio Rhythm: regular rhythm Heart sounds: S1 normal heart sound present and S2 normal heart sound present GI Inspection: Yes normal to inspection Palpation (GI): Soft to palpation Percussion: Yes normal to percussion Assessment and Plan Assessment & Plan (1) HTN (hypertension): Code(s): I10 - Essential (primary) hypertension Plan: Had hydralazine 10 mg twice a day to amlodipine metoprolol and spironolactone. Monitor blood pressure follow-up in 1 month (2) Degenerative joint disease (DJD) of lumbar spine: Comment: S/P R L4 laminectomy and L4 decompression 04/2019 Code(s): M47.816 - Spondylosis without myelopathy or radiculopathy, lumbar region Plan: Follow-up with neurosurgeon Medications: New hydralazine 10 mg PO BID 60 tabs 2RF gabapentin 200 mg (2 x 100 mg) PO TID 540 caps 1RF Coding Level of Care Code Est Pt Level 4 (40411) Diagnoses HTN (hypertension) I10 Degenerative joint disease (DJD) of lumbar spine M47.816
== END 2023-11-06 14:00 | disposition home or self-care (01) ==
PROVIDERS: PCP Internal Medicine; Visit Provider Internal Medicine
DX: I10 Essential (primary) hypertension (principal); M47.816 Spondylosis without myelopathy or radiculopathy, lumbar region
CPT/HCPCS: 99214

== ENCOUNTER 2023-12-08 10:30 | Outpatient (AMB) | payer MEDICARE, OTHER, SELFPAY ==
[2023-12-08 10:32] VITALS: BP 110/70; PULSE 64; O2SAT 97; BMI 21.7
--- NOTE | 2023-12-08 10:32 | A.OFFPC_ITS ---
Vital Signs 12/08/23 10:32 Height 5 ft Weight 111 lb BMI 21.7 BP 110/70 Blood Pressure Location Lt brachial Position Sitting Pulse 64 Pulse Source Pulse Oximeter Pulse Oximetry (%) 97 Oxygen Delivery Method Room Air Intake Visit Reasons: 1month follow up - see comments Intake Note: Pt is here today for 1 month follow up visit. Allergies cephalexin [CEPHALEXIN] Allergy (Severe, Verified 12/08/23 10:49) ANAPHYLAXIS nitrofurantoin [From MACRODANTIN] Allergy (Severe, Verified 12/08/23 10:49) ANAPHYLAXIS albuterol [ALBUTEROL] Allergy (Intermediate, Verified 12/08/23 10:49) ITCHING Sulfa (Sulfonamide Antibiotics) [SULFA (SULFONAMIDE ANTIBIOTICS)] Allergy (Intermediate, Verified 12/08/23 10:49) ITCHING acetaminophen [Percocet] Allergy (Unknown, Verified 12/08/23 10:49) itchy amoxicillin Allergy (Unknown, Verified 12/08/23 10:49) itchy and diarrhea doxycycline Allergy (Unknown, Verified 12/08/23 10:49) itchy gluten [GLUTEN] Allergy (Unknown, Verified 12/08/23 10:49) Ciliac disease indomethacin [Indocin] Allergy (Unknown, Verified 12/08/23 10:49) n/a lactose Allergy (Unknown, Verified 12/08/23 10:49) severe diarrhea latex Allergy (Unknown, Verified 12/08/23 10:49) itchy rash oxycodone [Percocet] Allergy (Unknown, Verified 12/08/23 10:49) itchy olmesartan Adverse Reaction (Intermediate, Verified 12/08/23 10:49) diarrhea DAIRY PRODUCTS Allergy (Unknown, Uncoded 12/08/23 10:49) severe diarrhea ventolin tabs Allergy (Unknown, Uncoded 12/08/23 10:49) Palpitations Medication List - Last Reconciled 12/08/23 by Jia Parmar MD amlodipine 5 mg PO BID apixaban (Eliquis) 5 mg PO BID blood sugar diagnostic As directed cyanocobalamin (vitamin B-12) 1,000 mcg IM Q4W gabapentin 200 mg (2 x 100 mg) PO TID hydralazine 10 mg PO BID hydromorphone 2 mg PO Q6H PRN insulin syringe-needle U-100 (BD Insulin Syringe) use for monthly injections lancets (Accu-Chek Fastclix Lancet Drum) Test blood sugar once a day latanoprost 0.005% 1 drp ophthalmic (eye) BEDTIME levothyroxine 50 mcg PO DAILY loperamide 2 mg PO BID PRN metoprolol succinate ER 50 mg PO BID omeprazole 40 mg PO BID rosuvastatin 5 mg PO BEDTIME sertraline 25 mg PO DAILY spironolactone 12.5 mg (1/2 x 25 mg) PO DAILY syringe with needle As directed syringe with needle, safety Use to inject B12 monthly timolol maleate 0.5% 1 drp ophthalmic (eye) QAM trazodone 50 mg PO BEDTIME vancomycin 125 mg PO BID Tobacco use date assessed: 12/08/23 Dental Screening Dental Screen Date: 07/15/23 HPI 1month follow up - see comments HPI Details Patient presents for the follow-up on hypertension chronic kidney disease stage 3 hyperlipidemia chronic anxiety. [facility]LY [facility] Medical History Hx of rheumatoid arthritis Hx of ectopic Back pain Arthritis Thyroid disease Diabetes Peptic ulcer Fatty liver Asthma On anticoagulant therapy DVT (deep venous thrombosis) Pulmonary embolism Osteopenia Minor skin laceration Annual physical exam Vitamin B 12 deficiency Vitamin D deficiency Chronic infection of knee joint prosthesis Diarrhea Knee pain Hypothyroidism Normal Pap smear Degenerative joint disease (DJD) of lumbar spine Microscopic colitis GERD (gastroesophageal reflux disease) Factor V deficiency Depression Colitis without complication Hyperglycemia Hyperlipidemia HTN (hypertension) Surgical History History of dental surgery History of release of tendon Hx of hammer toe correction History of bunionectomy of left great toe Hx of cholecystectomy H/O colonoscopy H/O cervical spine surgery History of lumbar surgery History of carpal tunnel syndrome History of knee replacement History of vagotomy History of total abdominal hysterectomy and bilateral salpingo-oophorectomy Family History Father Bladder cancer Mother Hypertension Social History Household Members: Spouse Housing: House Are you a primary outdoor emergency care technician to a significant other at home: No Do you presently have visiting nurse or other home services: No Alcohol intake: never Patient Tobacco Use Status: Never used Tobacco e-Cigarette/Vaping Use: Never Used Second Hand Smoke Exposure: Yes service: No Current occupational status: retired Cognitive needs: No Hearing needs: No Vision needs: Yes Questionnaire Thrive Questionnaire Date Thrive assessed: 09/16/23 I am a: Patient What is your living situation today?: I have a steady place to live Within the past 12 months, did the food you bought not last and you didn't have the money to get more?: Never true Within the past 12 months, did you worry whether your food would run out before you got money to buy more?: Never true Do you have trouble paying for medicines?: No Do you have trouble getting transportation to medical appointments?: No Do you have trouble paying your heating and electricity bill?: No Do you have trouble taking care of your child, family member or friend?: No Do you have trouble with day-to-day activities such as bathing, preparing meals, shopping, managing finances, etc.?: No Are you currently unemployed and looking for a job?: No Are you interested in more education?: No Please select the resources that you would like help with: None Currently or been in a relationship where the following occur: No concerns reported THRIVE Score: 0 ROSALINDA-7 AMB Questionnaire ROSALINDA-7 Date ROSALINDA - 7 assessed: 10/09/23 Source: Developed by Drs. Andrew Pompa, Tasha Barnard, Jonathan Minor and colleagues, with an educational farooq from [employer]. Review of Systems Const All systems reviewed & are unremarkable except as noted in HPI and below Card Reports no additional complaints Resp Reports no additional complaints GI Reports no additional complaints Reports no additional complaints Physical exam (Primary Care) Vital Signs: Last Vital Signs Pulse 64 12/08/23 10:32 BP 110/70 12/08/23 10:32 Pulse Ox 97 12/08/23 10:32 Oxygen Delivery Method Room Air 12/08/23 10:32 BMI result Body Mass Index 21.7 Tobacco/Smoking Status: Tobacco use Status Tobacco use date assessed 12/08/23 12/08/23 10:52 Patient Tobacco Use Status Never used Tobacco 12/08/23 10:32 e-Cigarette/Vaping Use Never Used 12/08/23 10:32 Thrive Assessment: Date of Thrive Assessment Date Thrive assessed 09/16/23 12/08/23 10:32 Currently or been in a relationship where the following occur: No concerns reported Const General: no acute distress Neck Neck: Yes supple Resp Effort & Inspection: normal respiratory effort Auscultation: clear to auscultation bilaterally Cardio Heart sounds: S1 normal heart sound present and S2 normal heart sound present GI Inspection: Yes normal to inspection Extrem General: Yes no clubbing, cyanosis or edema Coding Level of Care Code Est Pt Level 3 (88218) Diagnoses HTN (hypertension) I10 Hyperglycemia R73.9 CKD (chronic kidney disease) stage 3, GFR 30-59 ml/min N18.30 Assessment & Plan Assessment & Plan (1) HTN (hypertension): Code(s): I10 - Essential (primary) hypertension Category: Medical Plan: Continue current medications (2) Hyperglycemia: Comment: Diet-controlled Code(s): R73.9 - Hyperglycemia, unspecified Category: Medical Plan: Continue ADA diet check A1C (3) CKD (chronic kidney disease) stage 3, GFR 30-59 ml/min: Comment: Renal ultrasound 4 mm nonobstructive right kidney stone 07/2023 Code(s): N18.30 - Chronic kidney disease, stage 3 unspecified Category: Medical Plan: AVOID NEPHROTOXINS MONITOR RENAL FUNCTION Orders: Orders Hemoglobin A1c Today R73.9 - Hyperglycemia, unspecified Basic Metabolic Panel Today I10 - Essential (primary) hypertension, N18.30 - Chronic kidney disease, stage 3 unspecified, R73.9 - Hyperglycemia, unspecified
== END 2023-12-08 11:33 | disposition home or self-care (01) ==
PROVIDERS: PCP Internal Medicine; Visit Provider Internal Medicine
DX: I10 Essential (primary) hypertension (principal); R73.9 Hyperglycemia, unspecified; N18.30 Chronic kidney disease, stage 3 unspecified

== ENCOUNTER → 2023-12-08 10:30 | Outpatient (BNVA) | payer MEDICARE, OTHER, SELFPAY | PROVIDERS: PCP Internal Medicine; Visit Provider Internal Medicine | DX: I12.9 Hypertensive chronic kidney disease with stage 1 through stage 4 chronic kidney disease, or unspecified chronic kidney disease (principal); N18.30 Chronic kidney disease, stage 3 unspecified; R73.9 Hyperglycemia, unspecified | CPT/HCPCS: 99212 ==

== ENCOUNTER 2023-12-08 11:34 | Outpatient (REF) | payer MEDICARE, OTHER, SELFPAY ==
[2023-12-08 13:49] LABS: Estimated Average Glucose 108 mg/dL; Hemoglobin A1C 111.5967 umol/L; Hemoglobin A1c % 5.4 % (<6.0); Total Hemoglobin (HGBA1C) 3134.1898 umol/L
[2023-12-08 13:54] LABS: Anion Gap 14 (12-20); Blood Urea Nitrogen 17 mg/dL (9-16); Carbon Dioxide 19 mmol/L (22-29); Chloride 111 mmol/L (96-108); Estimated Glomerular Filt Rate 41; Glucose Random 153 mg/dL (60-115); Potassium 4.7 mmol/L (3.3-5.1); Sodium 139 mmol/L (135-145)
== END 2023-12-08 11:35 | disposition home or self-care (01) ==
LOC: HO.HMGCLDS 11:34
PROVIDERS: PCP Internal Medicine; Visit Provider Internal Medicine
DX: I12.9 Hypertensive chronic kidney disease with stage 1 through stage 4 chronic kidney disease, or unspecified chronic kidney disease (principal); R73.9 Hyperglycemia, unspecified; N18.30 Chronic kidney disease, stage 3 unspecified
CPT/HCPCS: 36415; 80048; 83036

== ENCOUNTER 2023-12-12 11:27 | Outpatient (AMB) | payer MEDICARE, OTHER, SELFPAY ==
--- NOTE | 2023-12-12 11:32 | HO.SPINEOV ---
Intake Visit Reasons: 2nd post op with xrays Intake Note: Ms. leslie is here for her 2nd post-op with xrays. 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: No Allergies cephalexin [CEPHALEXIN] Allergy (Severe, Verified 12/08/23 10:49) ANAPHYLAXIS nitrofurantoin [From MACRODANTIN] Allergy (Severe, Verified 12/08/23 10:49) ANAPHYLAXIS albuterol [ALBUTEROL] Allergy (Intermediate, Verified 12/08/23 10:49) ITCHING Sulfa (Sulfonamide Antibiotics) [SULFA (SULFONAMIDE ANTIBIOTICS)] Allergy (Intermediate, Verified 12/08/23 10:49) ITCHING acetaminophen [Percocet] Allergy (Unknown, Verified 12/08/23 10:49) itchy amoxicillin Allergy (Unknown, Verified 12/08/23 10:49) itchy and diarrhea doxycycline Allergy (Unknown, Verified 12/08/23 10:49) itchy gluten [GLUTEN] Allergy (Unknown, Verified 12/08/23 10:49) Ciliac disease indomethacin [Indocin] Allergy (Unknown, Verified 12/08/23 10:49) n/a lactose Allergy (Unknown, Verified 12/08/23 10:49) severe diarrhea latex Allergy (Unknown, Verified 12/08/23 10:49) itchy rash oxycodone [Percocet] Allergy (Unknown, Verified 12/08/23 10:49) itchy olmesartan Adverse Reaction (Intermediate, Verified 12/08/23 10:49) diarrhea DAIRY PRODUCTS Allergy (Unknown, Uncoded 12/08/23 10:49) severe diarrhea ventolin tabs Allergy (Unknown, Uncoded 12/08/23 10:49) Palpitations Assessment & Plan Assessment & Plan (1) Lumbar spinal stenosis due to adjacent segment disease after fusion procedure: Code(s): M48.061 - Spinal stenosis, lumbar region without neurogenic claudication; M51.36 - Other intervertebral disc degeneration, lumbar region Category: Medical Plan Mrs Leslie is 2 months out from her L3-4 oblique lumbar interbody fusion with revision of posterior instrumentation. She tells me that she is mobilizing much better than she was before surgery in terms of the back pain in the bilateral leg pain. She still does have pain that starts in her lateral hip which radiates down to her anterior thigh but it is better than it was before surgery. It is intermittent but will come on sporadically and spontaneously. She completed PT and has been discharged from their service. Her wounds have all healed up nicely. We discussed activity guidelines, restrictions and expectations after lumbar fusion surgery. I will see her back in 2 months with a set of x-rays. Emir Ramirez MD, PhD [facility] Orders: Orders XR lumbar spine 4V min Today M48.061 - Spinal stenosis, lumbar region without neurogenic claudication, M51.36 - Other intervertebral disc degeneration, lumbar region Coding Level of Care Code Global (37312) Diagnoses Lumbar spinal stenosis due to adjacent segment disease after fusion procedure M48.061; M51.36
== END 2023-12-12 11:55 | disposition home or self-care (01) ==
PROVIDERS: PCP Internal Medicine; Visit Provider Physician Assistant
DX: M48.061 Spinal stenosis, lumbar region without neurogenic claudication (principal); M51.369 Other intervertebral disc degeneration, lumbar region without mention of lumbar back pain or lower extremity pain
CPT/HCPCS: 99024

== ENCOUNTER 2024-02-05 15:22 | Outpatient (REF) | payer MEDICARE, OTHER, SELFPAY ==
--- OUTSIDE RECORDS SUMMARY | 2024-02-11 04:25 | XMS_ITS ---
Author Name [facility] Organization Unknown History of Medication Use Medication Directions Dispensed Refills Start Date End Date Stat rOPINIRole (REQUIP) 5 MG tablet Take 5 mg by mouth nightly. 06/26/2022 active latanoprost (XALATAN) 0.005 % ophthalmic solution Administer 1 drop to both eyes nightly. 06/27/2022 active timolol (BETIMOL) 0.5 % ophthalmic solution Administer 1 drop to both eyes daily. 06/26/2022 active budesonide (ENTOCORT EC) 3 MG 24 hr capsule Take 3 mg by mouth 2 (two) times a day. Morning and night 06/26/2022 active timolol (BETIMOL) 0.5 % ophthalmic solution Administer 1 drop to both eyes daily. 09/21/2022 active calcium carbonate-vitamin D 600 mg-400 unit tablet Take 1 tablet by mouth 2 (two) times a day. 06/27/2022 active mirtazapine (REMERON) 45 MG tablet Take 45 mg by mouth nightly. 06/27/2022 active acetaminophen (TYLENOL) 500 MG tablet Take 2 tablets (1,000 mg total) by mouth 3 times daily (every 8 hours) as needed for mild pain or fever. 06/27/2022 active traZODone (DESYREL) 50 MG tablet Take 50 mg by mouth nightly. 06/26/2022 active methocarbamol (ROBAXIN) 500 MG tablet Take 1 tablet (500 mg total) by mouth 3 (three) times a day as needed for muscle spasms. 06/27/2022 active amLODIPine (NORVASC) 5 MG tablet Take 5 mg by mouth daily. Twice a day 06/26/2022 active HYDROmorphone (DILAUDID) 2 MG tablet Take 1-2 tablets (2-4 mg total) by mouth every 4 (four) hours as needed for moderate pain or severe pain. Max Daily Amount: 24 mg 06/26/2022 active senna (SENOKOT) 8.6 MG Tab tablet Take 2 tablets by mouth daily as needed for constipation. 06/26/2022 active famotidine (PEPCID) 20 MG tablet Take 20 mg by mouth 2 (two) times a day. 06/27/2022 active vancomycin (VANCOCIN) 125 MG capsule Take 1 capsule (125 mg total) by mouth 2 (two) times a day. 09/21/2022 active cefpodoxime (VANTIN) 200 MG tablet Take 1 tablet (200 mg total) by mouth daily. 12/13/2022 aborted rosuvastatin (CRESTOR) 5 MG tablet Take 5 mg by mouth daily. At night 06/27/2022 active rivaroxaban (XARELTO) 20 MG tablet Take 20 mg by mouth daily. Takes in the morning 06/27/2022 active OMEprazole (PriLOSEC) 40 MG capsule Take 40 mg by mouth every morning before breakfast. 06/27/2022 active vancomycin (VANCOCIN) 125 MG capsule TAKE 1 CAPSULE BY MOUTH TWICE A DAY 07/26/2022 aborted levothyroxine (SYNTHROID, LEVOTHROID) 50 MCG tablet Take 5 mcg by mouth daily on an empty stomach. Takes M-F 06/27/2022 active gabapentin (NEURONTIN) 600 MG tablet Take 600 mg by mouth 3 (three) times a day. 06/27/2022 active Problems Problem Status Onset Date Problem Type Date of Resolution Source Infection of prosthetic knee joint active 2020-03-16 ProblemAct [facility] Restless leg syndrome active 2020-03-17 ProblemAct [facility] Glaucoma active 2020-03-17 ProblemAct [facility] Acquired hypothyroidism active 2020-03-17 ProblemAct [facility] Depression active 2020-03-17 ProblemAct [facility] Benign essential HTN active 2020-03-17 ProblemAct [facility] GERD (gastroesophageal reflux disease) active 2020-03-17 ProblemAct [facility] C. difficile colitis active EncounterDiagnosisA ct [facility] HLD (hyperlipidemia) active 2020-03-17 ProblemAct [facility] Type 2 diabetes mellitus without complication, without long-term current use of insulin active 2020-03-17 ProblemAct [facility]
== END 2024-02-05 15:23 | disposition home or self-care (01) ==
LOC: HO.HOSX 15:22
PROVIDERS: PCP Internal Medicine; Visit Provider Physician Assistant
DX: M48.061 Spinal stenosis, lumbar region without neurogenic claudication (principal); M51.360 Other intervertebral disc degeneration, lumbar region with discogenic back pain only
CPT/HCPCS: 99212

== ENCOUNTER 2024-02-05 15:22 | Outpatient (AMB) | payer MEDICARE, OTHER, SELFPAY ==
--- NOTE | 2024-02-05 15:33 | HO.SPINEOV ---
Intake Visit Reasons: 3rd post op/2 month f/u Intake Note: Ms. Leslie is here today for her 3rd post op visit. Bilingual Social Worker Required: No Allergies cephalexin [CEPHALEXIN] Allergy (Severe, Verified 02/05/24 15:56) ANAPHYLAXIS nitrofurantoin [From MACRODANTIN] Allergy (Severe, Verified 02/05/24 15:56) ANAPHYLAXIS albuterol [ALBUTEROL] Allergy (Intermediate, Verified 02/05/24 15:56) ITCHING Sulfa (Sulfonamide Antibiotics) [SULFA (SULFONAMIDE ANTIBIOTICS)] Allergy (Intermediate, Verified 02/05/24 15:56) ITCHING acetaminophen [Percocet] Allergy (Unknown, Verified 02/05/24 15:56) itchy amoxicillin Allergy (Unknown, Verified 02/05/24 15:56) itchy and diarrhea doxycycline Allergy (Unknown, Verified 02/05/24 15:56) itchy gluten [GLUTEN] Allergy (Unknown, Verified 02/05/24 15:56) Ciliac disease indomethacin [Indocin] Allergy (Unknown, Verified 02/05/24 15:56) n/a lactose Allergy (Unknown, Verified 02/05/24 15:56) severe diarrhea latex Allergy (Unknown, Verified 02/05/24 15:56) itchy rash oxycodone [Percocet] Allergy (Unknown, Verified 02/05/24 15:56) itchy olmesartan Adverse Reaction (Intermediate, Verified 02/05/24 15:56) diarrhea DAIRY PRODUCTS Allergy (Unknown, Uncoded 12/08/23 10:49) severe diarrhea ventolin tabs Allergy (Unknown, Uncoded 12/08/23 10:49) Palpitations Assessment & Plan Assessment & Plan (1) Lumbar spinal stenosis due to adjacent segment disease after fusion procedure: Code(s): M48.061 - Spinal stenosis, lumbar region without neurogenic claudication; M51.36 - Other intervertebral disc degeneration, lumbar region Category: Medical Plan Mrs Leslie is just about 3 months out from her L3-4 oblique lumbar interbody fusion with extension and revision of screws from her previous L4-5 surgery. She was doing great until about 2-3 weeks ago when she started to notice the pain going across the lower aspect of her lumbar spine with some pain also along the right SI joint region. It may have been aggravated when she had to quickly peanut picker her dog when another dog was attacking it. Since then the pain has been very excruciating. If she sits in her recliner, it seems to get a lot better but standing and moving around is very uncomfortable. She is bent over enough flexed position most of the time. She has very limited what she can take because of her Eliquis in her liver disease. She has a baseline drop foot but the rest of her motor examination is intact. Her wounds have all healed up nicely. I told her would like to get a set of x-rays and re-evaluate after that. She will call me once the x-rays are completed. If those are not giving me any indication of what is going on I will escalate up to a CT scan. Emir Ramirez MD, PhD [facility] Orders: Orders XR lumbar spine 4V min Today M48.061 - Spinal stenosis, lumbar region without neurogenic claudication, M51.36 - Other intervertebral disc degeneration, lumbar region Coding Level of Care Code Global (23445) Diagnoses Lumbar spinal stenosis due to adjacent segment disease after fusion procedure M48.061; M51.36
--- OUTSIDE RECORDS SUMMARY | 2024-02-11 04:18 | XMS_ITS ---
Author Organization [facility] Address [address] [facility] [place] [address] Care Team Providers Care Material Movers Name Role Phone Jia Parmar MD Primary Care Provider Alexandre Arriaga Unavailable [phone] Allergies Allergen (clinical drug ingredient) Drug/Non Drug Allergy [...] aggrevated by shoes and causing difficulty standing/walking. Medications Medication SIG (Take, Route, Frequency, Duration) Notes [...] 1 tablet Orally bid Active Antibiotic Active Social History Tobacco Use: Social History Observation Description Date Details (start date - stop date) Never Smoker NA - NA Tobacco Use/Smoking Question Answer Notes Are you a: nonsmoker Additional Findings: Tobacco Non-User Current no n-smoker Alcohol Screen Question Answer Notes Did you have a drink containing alcohol in the p ast year? No Points 0 Interpretation Negative Tobacco use other than smoking: Question Answer Notes Are you an other tobacco user? No Vital Signs Height 5 ft 0 in in 08/21/2023 Weight 119 lbs 08/21/2023 BMI 23.24 kg/m2 08/21/2023 Blood pressure systolic 120 mm Hg 08/21/19 24 Blood pressure diastolic 65 mm Hg 024 Encounters Encounter Location Date Provider Diagnosis [facility] [address] [place] [address] 08/21/2023 Alexandre Williamson Pain in right toe(s) M79.674 ; Other hammer toe(s) (acquired), right foot M20.41 ; Type 2 diabetes mellitus with diabetic polyneuropathy E11.42 ; Exostosis of right foot M89.8X7 ; Atherosclerosis of artery of both lower extremities I70.203 ; Tinea unguium B35.1 and Pain in left toe(s) M79.675 Assessments Encounter Date Diagnosis (ICD Code) Assessment Notes Treatment Notes Treatment Clinical Notes Section Notes 08/21/2023 Pain in right toe(s) (ICD-10 - M79.674) 08/21/2023 Other hammer toe(s) (acquired), right foot (ICD-10 - M20.41) 08/21/2023 Type 2 diabetes mellitus with diabetic polyneuropathy (ICD-10 - E11.42) 08/21/2023 Exostosis of right foot (ICD-10 - M89.8X7) 08/21/2023 Atherosclerosis of artery of both lower extremities (ICD-10 - I70.203) 08/21/2023 Tinea unguium (ICD-10 - B35.1) 08/21/2023 Pain in left toe(s) (ICD-10 - M79.675) Plan Of Treatment Next Appt Details Follow Up: 3 Months, 2 Month s, Reason: Provider Name:Melina chowdhury, 02/18/2024 09:15:00 AM, [address] [place] [address], [phone], Procedure Notes * Category Sub-Category Detail [...] as necessary. Patient chooses, no pharmaceutical tx (13500) Keratoma Treatment Parring or Cutting o f Benign Hyperkeratotic Lesion(s) 26741 ( >4 Lesions) - The Benign hyperkeratotic lesions, as described above were pared, and/or cut utilizing a sterile #15 blade, tissue nippers, and/or dremel Progress Notes * Lynda DRIVER DDOB:1945 ( 78 yo F)Acc No.[id number]:08/21/2023 Progress Note Patient:?Lynda Driver Provider:?Alexandre Williamson DPM :1945???Age:78 Y???Sex:Female D ate:08/21/2023 Address:[address] [place] [address] [id number] Pcp:Jia Parmar MD Subjective: * Chief Complaints: * ??? Painful nail(s) aggrevat ed by shoes and causing difficulty standing/walking. * HPI: ???Painful Nails:?Pt States Last PCP Visit:?Date:?05/06/2023 ???Toe pain:?Nature:?swelling, tenderness, aching.?Location:?5th toe, Right foot.?Duration:?several months.?Course:?improved.?Aggrevated by:?any pressure, shoes.?Treatments:?bracing/splinting/padding; ht sx 07/[address] Hays.? * ROS:?General/Constitutional:?Nausea?denies.?Vomiting?denies.?Hunger Thirst?denies.?Loss appetite?denies.?Chills?denies.?Fatigue?denies.?Fever?denies.?Night Sweats?denies.?Unexplained weight loss?denies.?Unexplained weight gain?denies.?HEENTM:?Dentures?denies.?Dizziness?denies.?Glasses/contacts?admits.?Retinopathy?de nies.?Blurred/double vision?denies.?TMJ?denies.?Discharge/drainage?denies.?Implants?denies.?Sore throat?denies.?Dental implants?denies.?Hard of hearing ?denies.?Difficulty chewing/swallowing/speaking?denies.?Nose bleeds?denies.?Sore mouth?denies.?Respiratory:?On Oxygen?denies.?Pneumonia/pleurisy?denies.?Bronchitis?denies.?Emphysema?denies.?C oughing?denies.?Cough blood?denies.?Shortness of breath?denies.?Wheezing?denies.?Cardiovascular:?Pacemaker?denies.?MVP?denies.?WPW?denies.?CHF?denies.?Heart attack?denies.?Septal defect?denies.?Rapid beat?denies.?Chest pain ?denies.?Atrial Fib.?denies.?Murmur/Palpitations?denies.?Gastrointestinal:?Hemorrhoids?denies.?Stomach/Abdominal pain?denies.?Dark blood stool?denies.?Irritable bowel ?denies.?Constipation?denies.?Diarrhea?denies.?Hematology:?Swelling?denies.?Clots?denies.?Varicose Veins?denies.?Bruising?denies.?Bleeding problem?denies.?Genitourinary:?Blood urine?denies.?Frequent/Painfu/urination/bladder control?denies.?Kidney stones?denies.?Infection (UTI)?denies.?Nephropathy?denies.?sex trans dis (STD)?denies.?Prostate?denies.?Musculoskeletal:?Hammertoes?denies.?Bunions?denies.?Back Pain?denies.?Muscle Cramps/ Resting?denies.?Muscle cramps / walking?denies.?Generalized aches and pains?denies.?Weakness?denies.?Integ.:?Martinez?denies.?Scars?denies.?Corns/calluses?denies.?Ingrown nails?denies.?Painful nails?denies.?Open Sores?denies.?Rashes?denies.?Neurologic:?Difficulty sleeping?denies.?Brain disorder?denies.?Numbness?admits.?Balance trouble?denies.?Confusion?denies.?Fainting/blackouts?denies.?Tingling?denies.?Tr emors?denies.? * Medical History:? * Surgical History:?appendecto my 1959eptopic 1969hernia 1982knee surgery, left - 10 surgeries knee surgery, right - 2 surgeries carpal tunnel surgery finger surgery nerve surgery - spine L2 and L4 2014Stenosis L4- L5 released pinched nerve 04/30/2019hysterectomy foot surgery - Ankit/Kadi,HT L2nd 03/2016cataract removal LT 08/22/16cataract removal RT 09/16/16enoscopy 01/03/2017Vericocele Repair - RT leg 05/09/17Back surgery 01/19Knee infection ick line aser surgery 07/05/20vertebrae neck sx 12/20/20colonoscopy 11/19/21Mouth Surgery 06/2022HT repair R4th,5th toes, Exostectomy R 5th toe P/B 07/31/2022 * Hospitalization/Major Diagno stic Procedure:?[facility] X 3 Days, Pt sstates she fell, dx: concusion 05/18/2017[facility]- pancolitis 02/13/19[place] [facility] 5 days after sx back blood clot / c.diff 03/2020[facility] ER- Fall - police told her to get knee checked out- couldn't walk 12/03/22 * Family History:?Mother: dece ased, poor circulation, diagnosed with Family history of arthritis, Unspecified essential hypertension, Unspecified cerebral artery occlusion with cerebral infarction, Other malignant neoplasm of unspecified site.?Father: , poor circulation, kidney/liver disease, diagnosed with Family history of arthritis, Unspecified essential hypertension, Unspecified cerebral artery occlusion with cerebral infarction.?Daughter(s): alive.?Son(s): alive.?Paternal Grand Mother: heart attack, diagnosed with Unspecified essential hypertension.?Paternal Grand Father: heart attack, diagnosed with Unspecified essential hypertension.?Maternal Grand Mother: heart attack, diagnosed with Unspecified essential hypertension.?Maternal Grand Father: heart attack, diagnosed with Unspecified essential hypertension.?Spouse: alive.?2 son(s) , 1 daughter(s) . .? * Social History:?Tobacco Use:?Tobacco Use/Smoking?Are you a:?nonsmoker ?Additional Findings: Tobacco Non-User?Current non-smoker ?Tobacco use other than smoking?Are you an other tobacco user??No ???Drugs/Alcohol:?Drugs?Have you used drugs other than those for medical reasons in the past 12 months??No ?Alcohol Screen?Did you have a drink containing alcohol in the past year??No ?Points?0 ?Interpretation?Negative ???Miscellaneous:?Caffeine: yes, 1-2 cups per day. ?Children: yes, 3. ?Exercise: yes, housework, gardening. ?Marital status: . 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 * Medications:?TakingSpironola ctone 25 MG Tablet 1 tablet Orally Once a dayamLODIPine Besylate 5 MG Tablet 1 tablet Orally bidAntibiotic Ammonium Molybdate Caltrate 600+D 600-800 MG-UNIT Tablet 1 tablet Orally Twice a dayClindamycin HCl 300 MG Capsule 1 capsule Orally every 6 hrs, Notes: PRN for DENTISTCrestor 5 MG Tablet 1 tablet Orally Once a dayDiclofenac gel, used with PSK cream up to 4 times a dayeliquis Gabapentin 300 Capsule 1 CAPSULE BEFORE BEDTIME THREE TIMES A DAY ORALLY 30 DAYS Multivitamin Adults 50+ Tablet Orally Prilosec Synthroid 50 MCG Tablet 1 tablet Orally Once a dayTimolol Hemihydrate 0.5 % Solution 1 drop into affected eye Ophthalmic Once a dayVitamin D3 Xalatan 0.005 % Solution 1 drop into affected eye in the evening Ophthalmic Once a dayExtra Depth Diabetic Shoes with 3 Pair Custom heat-molded multi-density innersoles for 1 year Dx:Taking Spironolactone 25 MG Tablet 1 tablet Orally Once a dayTaking amLODIPine Besylate 5 MG Tablet 1 tablet Orally bidTaking Antibiotic Taking Ammonium Molybdate Taking Caltrate 600+D 600-800 MG-UNIT Tablet 1 tablet Orally Twice a dayTaking Clindamycin HCl 300 MG Capsule 1 capsule Orally every 6 hrs, Notes: PRN for DENTISTTaking Crestor 5 MG Tablet 1 tablet Orally Once a dayTaking Diclofenac gel, used with PSK cream up to 4 times a dayTaking eliquis Taking Gabapentin 300 Capsule 1 CAPSULE BEFORE BEDTIME THREE TIMES A DAY ORALLY 30 DAYS Taking Multivitamin Adults 50+ Tablet Orally Taking Prilosec Taking Synthroid 50 MCG Tablet 1 tablet Orally Once a dayTaking Timolol Hemihydrate 0.5 % Solution 1 drop into affected eye Ophthalmic Once a dayTaking Vitamin D3 Taking Xalatan 0.005 % Solution 1 drop into affected eye in the evening Ophthalmic Once a dayTaking Extra Depth Diabetic Shoes with 3 Pair Custom heat-molded multi-density innersoles for 1 year Dx:Not-Taking/PRNBudesonide 3 MG Capsule Delayed Release Particles as directed Orally Once a dayoxyCODONE HCl 5 MG Tablet 0.5 tablet as needed Orally every 6 hrsNortriptyline HCl rOPINIRole HCl , Notes: FOR RLSExtra Depth Orthopedic Shoes (1 Pair) with Customized Heat Molded Multidensity Innersoles (3 Pair) as directed Dx: NIDDM/Polyneuropathy (E11.42), Hammertoe Foot Deformity (M20.41,M20.42), Preulcerative Skin Lesion(s) (L85.1Extra Depth Diabetic Shoes with 3 Pair Custom heat-molded multi-density innersoles for 1 year Dx:Xarelto NexIUM 40 MG Capsule Delayed Release 1 capsule Orally Once a dayGabapentin 600 tablet 1 TABLET THREE TIMES A DAY ORALLY 30 DAY(S) Gabapentin 600 MG Tablet TAKE 1 TABLET BY MOUTH THREE TIMES DAILY Budesonide ER 20 mg Gabapentin 300 MG Capsule 1 capsule before bedtime Orally Three times a daySkelaxin 800 MG Tablet 1 tablet Orally Three times a day, Notes: PRNtraMADol HCl 50 MG Tablet 1 tablet as needed Orally every 6 hrs, Notes: PRNALPRAZolam XR 0.5 MG Tablet Extended Release 24 Hour 1 tablet Orally twice a dayLexapro 5 MG Tablet 1 tablet Orally Once a dayTimolol Maleate 0.5 % Solution Ophthalmic Qvar 40 MCG/ACT Aerosol Solution 1 puff Inhalation Twice a daytraMADol HCl Physical Therapy 3-4x per week for 3-4 weeks Ultram 50 MG Tablet 1 tablet as needed Orally every 6 hrsNortriptyline HCl 10 MG Capsule TK 1 C PO QD HS UTD Orally Dramamine Levalbuterol Tartrate Lidocaine 5 % Patch 1 patch to intact skin remove after 12 hours Externally Once a dayXopenex Gabapentin 300 MG Capsule 1 capsule Orally Three times a dayPhysical Therapy . . . . 2-3x/weekPhysical Therapy . . . . 2-3x/weekPhysical Therapy . . . . 2-3x/weekColchicine 0.6 MG Tablet 1 tablet Orally Once a dayLunesta 3 MG Tablet 1 tablet immediately before bedtime Orally Once a dayBenzonatate 200 MG Capsule 1 capsule Orally Three times a dayCyanocobalamin , Notes: B12 injection 1 X per MFish Oil 1000 mg Capsule 1 capsule Orally Once a dayEsomeprazole Magnesium Aerochamber Plus Medication List reviewed and reconciled with the patientNot-Taking/PRN Budesonide 3 MG Capsule Delayed Release Particles as directed Orally Once a dayNot-Taking/PRN oxyCODONE HCl 5 MG Tablet 0.5 tablet as needed Orally every 6 hrsNot-Taking/PRN Nortriptyline HCl Not-Taking/PRN rOPINIRole HCl , Notes: FOR RLSNot-Taking/PRN Extra Depth Orthopedic Shoes (1 Pair) with Customized Heat Molded Multidensity Innersoles (3 Pair) as directed Dx: NIDDM/Polyneuropathy (E11.42), Hammertoe Foot Deformity (M20.41,M20.42), Preulcerative Skin Lesion(s) (L85.1Not-Taking/PRN Extra Depth Diabetic Shoes with 3 Pair Custom heat-molded multi-density innersoles for 1 year Dx:Not-Taking/PRN Xarelto Not-Taking/PRN NexIUM 40 MG Capsule Delayed Release 1 capsule Orally Once a dayNot-Taking/PRN Gabapentin 600 tablet 1 TABLET THREE TIMES A DAY ORALLY 30 DAY(S) Not-Taking/PRN Gabapentin 600 MG Tablet TAKE 1 TABLET BY MOUTH THREE TIMES DAILY Not-Taking/PRN Budesonide ER 20 mg Not-Taking/PRN Gabapentin 300 MG Capsule 1 capsule before bedtime Orally Three times a dayNot-Taking/PRN Skelaxin 800 MG Tablet 1 tablet Orally Three times a day, Notes: PRNNot-Taking/PRN traMADol HCl 50 MG Tablet 1 tablet as needed Orally every 6 hrs, Notes: PRNNot-Taking/PRN ALPRAZolam XR 0.5 MG Tablet Extended Release 24 Hour 1 tablet Orally twice a dayNot-Taking/PRN Lexapro 5 MG Tablet 1 tablet Orally Once a dayNot-Taking/PRN Timolol Maleate 0.5 % Solution Ophthalmic Not-Taking/PRN Qvar 40 MCG/ACT Aerosol Solution 1 puff Inhalation Twice a dayNot-Taking/PRN traMADol HCl Not-Taking/PRN Physical Therapy 3-4x per week for 3-4 weeks Not-Taking/PRN Ultram 50 MG Tablet 1 tablet as needed Orally every 6 hrsNot-Taking/PRN Nortriptyline HCl 10 MG Capsule TK 1 C PO QD HS UTD Orally Not-Taking/PRN Dramamine Not-Taking/PRN Levalbuterol Tartrate Not-Taking/PRN Lidocaine 5 % Patch 1 patch to intact skin remove after 12 hours Externally Once a dayNot-Taking/PRN Xopenex Not-Taking/PRN Gabapentin 300 MG Capsule 1 capsule Orally Three times a dayNot-Taking/PRN Physical Therapy . . . . 2-3x/weekNot-Taking/PRN Physical Therapy . . . . 2-3x/weekNot-Taking/PRN Physical Therapy . . . . 2-3x/weekNot-Taking/PRN Colchicine 0.6 MG Tablet 1 tablet Orally Once a dayNot-Taking/PRN Lunesta 3 MG Tablet 1 tablet immediately before bedtime Orally Once a dayNot-Taking/PRN Benzonatate 200 MG Capsule 1 capsule Orally Three times a dayNot-Taking/PRN Cyanocobalamin , Notes: B12 injection 1 X per MNot-Taking/PRN Fish Oil 1000 mg Capsule 1 capsule Orally Once a dayNot-Taking/PRN Esomeprazole Magnesium Not-Taking/PRN Aerochamber Plus Medication List reviewed and reconciled with the patient * Allergies:?AlbuterolCephalex inLactoseMacrodantinIndocinGlutenBactrimVentolin HFALatexPercocet: Restlessness, Nervousness, Feels like she's wiredAdhesiveyes[Allergies Verified] Objective: * Vitals:?Ht: 5 ft 0 in, Wt:11 9, BMI:23.24, Shoe size:5-5.5, BP:120/65 mm Hg, BS:not taken. * ???Past Orders: ???Lab:HEMOGLOBIN A1C (GLYCO HEMOGLOBIN) (Order Date - 08/13/2022) (Collection Date - 07/30/2022) ? Value Reference Range ?HEMOGLOBIN A1C % (HH) 5.3 * Examination: ???Ophthalmology Referral: ?DIABETES EYE EXAM?General Examination: ?GENERAL APPEARANCE:?pleasant, alert, well nourished, well developed, well hydrated, with good attention to hygene/body habitus, and in no acute distress.?ORIENTED:?person,place, and time.?Neurological: ?SENSORY:?Neurological exam demonstrates, reduced vibration sensation, 5.07 monofilament test performed at plantar aspects of 5 varied sites per foot shows sensation, reduced , B/L, Neurological exam demonstrates pop t9.?Vascular: ?DP PULSES:? 0/4, B/L.?PT PULSES:? 1/4, B/L.?CAPILLARY FILL TIME:?3 secs. per digit, B/L.?SKIN TEMPERTURE GRADIENT OF THE LOWER EXTERMITIES:?decreased, cool to cool, proximal to distal, B/L.?HAIR GROWTH/TEXTURE/ELASTICITY/TURGOR:?decreased, B/L , sparce hair growth.?PIGMENTATION:?normal, B/L.?EDEMA:? 2/4, Right 5th toe.?TELANGECTASIA:?absent.?VARICOSITIES:?absent.?Dermatologic: ?SKIN FINDINGS:? Skin exam reveals Keratotic lesion(s) located at, Plantar, IPJ, TA, T5, SUB MTH (s), 1, 5, B/L, Heel(s), B/L.?Orthopedic: ?MUSCLE STRENGTH:?5/5 all groups in a symmetrical fashion , B/L.?GAIT ABNORMALITY:?pronated, abducted, B/L.?DIGITAL DEFORMITIES:?Digital contracture, PIPJ, 2-5 B/L, incompl-reducible with WB, or to push-up test, no over, nor underlapping , Reveals pain/swelling/redness/enlargement of DIPJ , T9.?Nails: ?NAILS are:?elongated,overgrown,dystrophic,greater than 3mm thick,discolored and friable with crumbly malodorous subungual debris, with pain on palpation, 1-5 B/L.? Assessment: * Assessment: 1.?Pain in right toe(s) - M7 9.674?2.?Other hammer toe(s) (acquired), right foot - M20.41 (Primary)?3.?Type 2 diabetes mellitus with diabetic polyneuropathy - E11.42?4. Exostosis of right foot - M89.8X7?5.?Atherosclerosis of artery of both lower extremities - I70.203?6.?Tinea unguium - B35.1?7.?Pain in left toe(s) - M79.675? Plan: * Treatment: * Procedures:?Debride Nail 6-10:?Nail debridement?Nail debridement performed extensively to reduce/remove overall nail length and girth, subungual debris, and necrotic tissue, by manual and electrical means with use of a nail nipper and/or dremel, to more viable healthy nail plate or bed tissue 6-10. Silver nitrate used for any petechial bleeding as necessary. Patient chooses, no pharmaceutical tx (01473).?Keratoma Treatment:?Parring or Cutting of Benign Hyperkeratotic Lesion(s)?61518 ( >4 Lesions) - The Benign hyperkeratotic lesions, as described above were pared, and/or cut utilizing a sterile #15 blade, tissue nippers, and/or dremel.? * Procedure Codes:?67232 TRIM SKIN LESIONS, OVER 4, Modifiers: XS 27159 DEBRIDE NAIL, 6 OR MORE, Modifiers: XS * Follow Up:?3 Months, 2 Month s * Images: * Sign off status: Completed true * Provider:?Alexandre Williamson DPM Date:? 024 Generated for Anisha stephen/Jaspal/eTdequansmitting on:?02/11/2024 04:17 AM EST History and Physical Notes * HPI (History of Present Illness) Category Sub-Category Detail Notes Category Not es Toe pain Nature: swelling, tenderness, aching Location: 5th toe, Right foot Duration: several months Course: improved Aggravated by: any pressure, shoes Treatments: bracing/splinting/pa dding; ht sx 07/[address] Hays Painful Nails Pt States Last PCP Visit: Date:: 05/06/2023 Examination Category Sub-Category Detail Notes Category Not es Neurological SENSORY: Neurological exa m demonstrates, reduced vibration sensation, 5.07 monofilament test performed at plantar aspects of 5 varied sites per foot shows sensation, reduced , B/L, Neurological exam demonstrates pop t9 Dermatologic SKIN FINDINGS: Skin exam reveal s Keratotic lesion(s) located at, Plantar, IPJ, TA, T5, SUB MTH (s), 1, 5, B/L, Heel(s), B/L Orthopedic GAIT ABNORMALITY: pronated, abducted, B/L DIGITAL DEFORMITIES: Digital contracture , PIPJ, [...] Eye Exam:: no retin opathy Vascular DP PULSES(B): 0/4, B/L PT PULSES(B): 1/4, B/L CAPILLARY FILL TIME: 3 secs. per digit, B/L TEMPERTURE GRADIENT(C): decreased, cool to cool, proximal to distal, B/L TROPHIC CONDITION-TEXTURE/ELASTICITY/TURGOR/HAIR GROWTH(B): decreased, B/L , sparce hair growth EDEMA(C): 2/4, Right 5th toe TELANGECTASIA: absent VARICOSITIES: absent PIGMENTATION: normal, B/L Nails NAILS are: elongated,overgr own,dystrophic,greater than 3mm thick,discolored and friable with crumbly malodorous subungual debris, with pain on palpation, 1-5 B/L
--- OUTSIDE RECORDS SUMMARY | 2024-02-11 04:18 | XMS_ITS ---
Author Organization [facility] Address [address] [facility] [place] [address] Care Team Providers Care Photonic Laboratory Technician Name Role Phone Jia Parmar MD Primary Care Provider Alexandre Arriaga Unavailable [phone] Allergies Allergen (clinical drug ingredient) Drug/Non Drug [...] 1 tablet Orally Once a day Active Social History Tobacco Use: Social History [...] Signs Height 5 ft 0 in in 05/29/2023 Weight 119 lbs 05/29/2023 BMI 23.24 kg/m2 05/29/2023 Blood pressure systolic 120 mm Hg 05/29/19 24 Blood pressure diastolic 65 mm Hg 024 Encounters Encounter Location Date Provider Diagnosis [facility] [address] [place] [address] 05/29/2023 Alexandre Williamson Pain in right toe(s) [...] Treatment Notes Treatment Clinical Notes Section Notes 05/29/2023 Pain in right toe(s) (ICD-10 - M79.674) 05/29/2023 Other hammer toe(s) (acquired), right foot (ICD-10 - M20.41) 05/29/2023 Type 2 diabetes mellitus with diabetic polyneuropathy (ICD-10 - E11.42) 05/29/2023 Exostosis of right foot (ICD-10 - M89.8X7) 05/29/2023 Atherosclerosis of artery of both lower extremities (ICD-10 - I70.203) 05/29/2023 Tinea unguium (ICD-10 - B35.1) 05/29/2023 Pain in left toe(s) (ICD-10 - M79.675) Plan Of Treatment Next Appt Details Follow Up: 3 Months, 2 Month s, Reason: Provider Name:Melina chowdhury, 02/18/2024 09:15:00 AM, [address] [place] [address], [phone], Procedure Notes * Category Sub-Category Detail [...] as necessary. Patient chooses, no pharmaceutical tx (85763) Keratoma Treatment Parring or Cutting o f Benign Hyperkeratotic Lesion(s) 86735 ( >4 Lesions) - The Benign hyperkeratotic lesions, as described above were pared, and/or cut utilizing a sterile #15 blade, tissue nippers, and/or dremel Progress Notes * Lynda DRIVER DDOB:1945 ( 78 yo F)Acc No.[id number]:05/29/2023 Progress Note Patient:?Lynda Driver Provider:?Alexandre Williamson DPM :1945???Age:78 Y???Sex:Female D ate:05/29/2023 Address:[address] [place] [address] [id number] Pcp:Jia Parmar MD Subjective: * Chief Complaints: * ??? Painful nail(s) aggrevat ed by shoes and causing difficulty standing/walking. * HPI: ???Painful Nails:?Pt States Last PCP Visit:?Date:?05/06/2023 ???Toe pain:?Nature:?swelling, tenderness, aching.?Location:?5th toe, Right foot.?Duration:?several months.?Course:?improved.?Aggrevated by:?any pressure, shoes.?Treatments:?bracing/splinting/padding.? * ROS:?General/Constitutional:?Nausea?denies.?Vomiting?denies.?Hunger Thirst?denies.?Loss appetite?denies.?Chills?denies.?Fatigue?denies.?Fever?denies.?Night Sweats?denies.?Unexplained weight loss?denies.?Unexplained [...] History:?Mother: dece ased, poor circulation, diagnosed with Other malignant neoplasm of unspecified site, Family history of arthritis, Unspecified essential hypertension, Unspecified cerebral artery occlusion with cerebral infarction.?Father: , poor circulation, kidney/liver disease, diagnosed with [...] housework, gardening. ?Marital status: . 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 * Medications:?TakingSpironola ctone 25 MG Tablet 1 [...] as necessary. Patient chooses, no pharmaceutical tx (31227).?Keratoma Treatment:?Parring or Cutting of Benign Hyperkeratotic Lesion(s)?53260 ( >4 Lesions) - The Benign hyperkeratotic lesions, as described above were pared, and/or cut utilizing a sterile #15 blade, tissue nippers, and/or dremel.? * Procedure Codes:?84869 TRIM SKIN LESIONS, OVER 4, Modifiers: XS 75439 DEBRIDE NAIL, 6 OR MORE, Modifiers: XS * Follow Up:?3 Months, 2 Month s * Images: * Sign off status: Completed true * Provider:?Alexandre Williamson DPM Date:? 024 Generated for Sheai zafar/Jaspal/eTransmitting on:?02/11/2024 04:17 AM EST History and Physical [...]
--- OUTSIDE RECORDS SUMMARY | 2024-02-11 04:18 | XMS_ITS | Patient Health Record ---
Author Organization [facility] Address [address] [facility] [place] [address] Care Team Providers Care Facilities Operator Name Role Phone Jia Parmar MD Primary Care Provider Alexandre Arriaga Unavailable [phone] Allergies Allergen (clinical drug ingredient) Drug/Non Drug [...] Allergy Active Latex Latex Unknown Allergy Active Results Component Value Reference Range Notes HEMOGLOBIN A1C (GLYCOHEMOGLO BIN) Reviewed date:11/13/2023 12:03:41 PM Interpretation: Performing Lab: Notes/Report: HEMOGLOBIN A1C % (HH) 5.0 Reason For Referral No Information Medications Medication SIG (Take, Route, Frequency, Duration) Notes Start Date End Date Status Diclofenac gel, used with PSK cream up to 4 times a day Active Synthroid 50 MCG 1 tablet Orally Once a day Active Timolol Hemihydrate 0.5 % 1 drop into affected eye Ophthalmic Once a day Active Vitamin D3 Active Colchicine 0.6 MG 1 tablet Orally Once a day for 30 day(s) 05/02/2016 Not-Taking Xalatan 0.005 % 1 drop into affected eye in the evening Ophthalmic Once a day Active Lunesta 3 MG 1 tablet immediately before bedtime Orally Once a day Not-Taking eliquis Active Gabapentin 300 1 CAPSULE BEFORE BEDTIME THREE TIMES A DAY ORALLY 30 DAYS for 30 Active Multivitamin Adults 50+ Orally Active Prilosec Active Aerochamber Plus Not -Taking Extra Depth Diabetic Shoes with 3 Pair Custom heat-molded multi-density innersoles for 1 year Dx: Active Benzonatate 200 MG 1 capsule Orally Three times a day Not-Taking Cyanocobalamin B12 injection 1 X per M Not-Taking Fish Oil 1000 mg 1 capsule Orally Once a day Not-Taking Esomeprazole Magnesium Not-Taking Budesonide 3 MG as directed Orally Once a day Not-Taking oxyCODONE HCl 5 MG 0.5 tablet as needed Orally every 6 hrs for 5 days 08/08/2022 Not-Taking Xarelto Not-Taking NexIUM 40 MG 1 capsule Orally Once a day Not-Taking Gabapentin 600 1 TABLET THREE TIMES A DAY ORALLY 30 DAY(S) for 30 Not-Taking Gabapentin 600 MG TAKE 1 TABLET BY MOUTH THREE TIMES DAILY for 30 Not-Taking Nortriptyline HCl No t-Taking rOPINIRole HCl FOR RLS Not-T aking Extra Depth Orthopedic Shoes (1 Pair) with Customized Heat Molded Multidensity Innersoles (3 Pair) as directed Dx: NIDDM/Polyneuropath y (E11.42), Hammertoe Foot Deformity (M20.41,M20.42), Preulcerative Skin Lesion(s) (L85.1 07/13/2018 Not-Taking Extra Depth Diabetic Shoes with 3 Pair Custom heat-molded multi-density innersoles for 1 year Dx: 10/23/2016 Not-Taking Budesonide ER 20 mg Not-Taking Gabapentin 300 MG 1 capsule before bedtime Orally Three times a day for 30 days Not-Taking Skelaxin 800 MG 1 tablet Orally Three times a day PRN Not-Taking Qvar 40 MCG/ACT 1 puff Inhalation Twice a day Not-Taking traMADol HCl Not-Reji ing Physical Therapy 3-4x per week for 3-4 weeks Not-Taking traMADol HCl 50 MG 1 tablet as needed Orally every 6 hrs for 10 days PRN 03/10/2017 Not-Taking ALPRAZolam XR 0.5 MG 1 tablet Orally twice a day Not-Taking Lexapro 5 MG 1 tablet Orally Once a day Not-Taking Timolol Maleate 0.5 % Ophthalmic Not-Taking amLODIPine Besylate 5 MG 1 tablet Orally bid Active Antibiotic Active Ammonium Molybdate A ctive Caltrate 600+D 600-800 MG-UNIT 1 tablet Orally Twice a day Active Ultram 50 MG 1 tablet as needed Orally every 6 hrs for 5 days 02/19/2017 Not-Taking hydrALAZINE HCl Acti ve Spironolactone 25 MG 1 tablet Orally Once a day Active Xopenex Not-Taking Gabapentin 300 MG 1 capsule Orally Three times a day for 30 day(s) Not-Taking Physical Therapy . . . 2-3x/week for 3-4 weeks 04/10/2016 Not-Taking Physical Therapy . . . 2-3x/week for 3-4 weeks 07/08/2016 Not-Taking Clindamycin HCl 300 MG 1 capsule Orally every 6 hrs for 5 days PRN for DENTIST 06/10/2016 Active Nortriptyline HCl 10 MG TK 1 C PO QD HS UTD Orally Not-Taking Crestor 5 MG 1 tablet Orally Once a day Active Dramamine Not-Taking Levalbuterol Tartrate Not-Taking Lidocaine 5 % 1 patch to intact skin remove after 12 hours Externally Once a day Not-Taking Physical Therapy . . . 2-3x/week for 3-4 weeks Not-Taking Immunizations Vaccine Route Administration Date Status Comme nts COVID-19 Pfizer BioNTech Vaccine Unknown 03/26/2021 Administered 1st 04/14/20 2nd 05/03/20 3rd 12/03/20 Influenza Unknown 12/13/2021 Administered Influenza Unknown 11/01/2022 Administered Pneumococcal Unknown 11/02/2019 Administered Social History Tobacco Use: Social History Observation [...] Are you an other tobacco user? No Problems Problem Type SNOMED Code ICD Code Onset Dates Problem Status W/U Status Risk Notes Problem Localized, primary osteoarthritis of the ankle and/or foot (018788058) Primary osteoarthritis, right ankle and foot (M19.071) Active confirmed Problem Localized, primary osteoarthritis of the ankle and/or foot (415106901) Primary osteoarthritis, left ankle and foot (M19.072) Active confirmed Problem Acquired hammer toe of right foot (6357265370229826) Other hammer toe(s) (acquired), right foot (M20.41) Active confirmed Problem Polyneuropathy due to type 2 diabetes mellitus (197654046) Type 2 diabetes mellitus with diabetic polyneuropathy (E11.42) Active confirmed Problem Primary gout (06629525) Idiopathic gout, right ankle and foot (M10.071) Active confirmed Problem Primary gout (45413168) Idiopathic gout, left ankle and foot (M10.072) Active confirmed Problem [id number] Atherosclerosi s of artery of both lower extremities (I70.203) Active confirmed Vital Signs Blood pressure diastolic 69 mm Hg 11/13/2023 Height 5 ft 0 in in 11/13/2023 Blood pressure systolic 148 mm Hg 11/13/2023 Weight 114 lbs 11/13/2023 BMI 22.26 kg/m2 11/13/2023 Procedures Procedure Date Ordered Date Performed Result Body Sit e 38513-Xthkonlmx, Toes 03/12/2023 N/A Encounters Encounter Location Date Provider Diagnosis [address] [address] 03/12/2023 Alexandre Williamson Pain in right toe(s) M79.674 ; Other hammer toe(s) (acquired), right foot M20.41 ; Type 2 diabetes mellitus with diabetic polyneuropathy E11.42 ; Exostosis of right foot M89.8X7 ; Atherosclerosis of artery of both lower extremities I70.203 ; Tinea unguium B35.1 and Pain in left toe(s) M79.[address] [facility] [address] 05/29/2023 Alexandre Williamson Pain in right toe(s) M79.674 ; Other hammer toe(s) (acquired), right foot M20.41 ; Type 2 diabetes mellitus with diabetic polyneuropathy E11.42 ; Exostosis of right foot M89.8X7 ; Atherosclerosis of artery of both lower extremities I70.203 ; Tinea unguium B35.1 and Pain in left toe(s) M79.[address] [address] 08/21/2023 Alexandre Williamson Pain in right toe(s) M79.674 ; Other hammer toe(s) (acquired), right foot M20.41 ; Type 2 diabetes mellitus with diabetic polyneuropathy E11.42 ; Exostosis of right foot M89.8X7 ; Atherosclerosis of artery of both lower extremities I70.203 ; Tinea unguium B35.1 and Pain in left toe(s) M79.[address] [facility] [address] [address] 11/13/2023 Alexandre Williamson Pain in right toe(s) M79.674 [...] Treatment Notes Treatment Clinical Notes Section Notes 03/12/2023 Pain in right toe(s) (ICD-10 - M79.674) 05/29/2023 Pain in right toe(s) (ICD-10 - M79.674) 11/13/2023 Pain in right toe(s) (ICD-10 - M79.674) 08/21/2023 Pain in right toe(s) (ICD-10 - M79.674) 08/21/2023 Other hammer toe(s) (acquired), right foot (ICD-10 - M20.41) 11/13/2023 Other hammer toe(s) (acquired), right foot (ICD-10 - M20.41) 05/29/2023 Other hammer toe(s) (acquired), right foot (ICD-10 - M20.41) 05/29/2023 Type 2 diabetes mellitus with diabetic polyneuropathy (ICD-10 - E11.42) 03/12/2023 Other hammer toe(s) (acquired), right foot (ICD-10 - M20.41) 03/12/2023 Type 2 diabetes mellitus with diabetic polyneuropathy (ICD-10 - E11.42) 03/12/2023 Exostosis of right foot (ICD-10 - M89.8X7) 05/29/2023 Exostosis of right foot (ICD-10 - M89.8X7) 11/13/2023 Type 2 diabetes mellitus with diabetic polyneuropathy (ICD-10 - E11.42) 08/21/2023 Type 2 diabetes mellitus with diabetic polyneuropathy (ICD-10 - E11.42) 11/13/2023 Exostosis of right foot (ICD-10 - M89.8X7) 08/21/2023 Exostosis of right foot (ICD-10 - M89.8X7) 03/12/2023 Atherosclerosis of artery of both lower extremities (ICD-10 - I70.203) 05/29/2023 Atherosclerosis of artery of both lower extremities (ICD-10 - I70.203) 03/12/2023 Tinea unguium (ICD-10 - B35.1) 05/29/2023 Tinea unguium (ICD-10 - B35.1) 11/13/2023 Atherosclerosis of artery of both lower extremities (ICD-10 - I70.203) 08/21/2023 Atherosclerosis of artery of both lower extremities (ICD-10 - I70.203) 08/21/2023 Tinea unguium (ICD-10 - B35.1) 11/13/2023 Tinea unguium (ICD-10 - B35.1) 05/29/2023 Pain in left toe(s) (ICD-10 - M79.675) 03/12/2023 Pain in left toe(s) (ICD-10 - M79.675) 11/13/2023 Pain in left toe(s) (ICD-10 - M79.675) 08/21/2023 Pain in left toe(s) (ICD-10 - M79.675) Plan Of Treatment Pending Test Test Name Order Date X ray : Foot, left 2V 12/25/2015 X ray : Foot, left 2V 04/01/2016 X ray : Foot, right 2V 12/25/2015 *Uric Acid, Serum 02/19/2017 *Uric Acid, Serum 05/02/2016 *CBC With Differential/Platelet 05/03/19 17 *Sedimentation Rate-Westergren 7 *Sedimentation Rate-Westergren 7 X ray : Foot, left 3V 11/20/2020 X ray : Foot, left 3V 04/10/2016 X ray : Foot, left 3V 06/10/2016 X ray : Foot, right 3V 02/19/2017 X ray : Foot, right 3V 07/05/2022 X ray : Foot, right 3V 08/06/2022 X ray : Foot, right 3V 11/20/2020 X ray : Foot, right 3V 08/04/2017 94090-JWHCERC NAIL, 6 OR MORE 10/27/2017 99941-OATPPEU NAIL, 6 OR MORE 08/04/2017 74341-MZRSNTO NAIL, 6 OR MORE 05/12/2017 07723-ERHRQGE NAIL, 6 OR MORE 2018 76910-MECXPYW NAIL, 6 OR MORE 03/10/2017 89708-NGNHLMI NAIL, 6 OR MORE 01/06/2017 17148-LSDOJFZ NAIL, 6 OR MORE 10/23/2016 68752-CPFVHDV NAIL, 6 OR MORE 07/25/2016 28590-BWAGWAK NAIL, 6 OR MORE 05/10/2016 59624-GXUPKJF NAIL, 6 OR MORE 02/14/2016 35488-NWFGZBM NAIL, 6 OR MORE 11/20/2015 13703-CCXURNF NAIL, 6 OR MORE 07/05/2015 77064-Zbdfbuzs Plate 07/27/2015 17084-Dqkhukod Plate 05/29/2016 42855-Plkvroca Plate 06/10/2016 52230- Debride <25 sq cm 06/10/2016 42967- Debride <25 sq cm 09/25/2016 79284- Debride <25 sq cm 10/23/2016 22412- Debride <25 sq cm 08/14/2015 85610-AURM SKIN LESIONS, OVER 4 07/05/19 16 55700-HZRH SKIN LESIONS, OVER 4 11/20/19 16 28206-IIXV SKIN LESIONS, OVER 4 02/14/20 16 50738-HBFM SKIN LESIONS, OVER 4 05/11/19 17 20873-HEJG SKIN LESIONS, OVER 4 10/24/19 17 73117-EKAX SKIN LESIONS, OVER 4 01/07/20 43048-VEPR SKIN LESIONS, OVER 4 05/13/19 42624-PGHC SKIN LESIONS, OVER 4 03/10/19 93980-FBLI SKIN LESIONS, OVER 4 02/13/20 44986-WFZH SKIN LESIONS, OVER 4 05/15/19 35550-EKMJ SKIN LESIONS, OVER 4 08/05/19 78315-GUZI SKIN LESIONS, OVER 4 01/13/20 53576-DNTR SKIN LESIONS, OVER 4 10/28/19 65710-ZRRY SKIN LESIONS, OVER 4 04/13/19 35447-ZODP SKIN LESIONS, OVER 4 07/14/19 67963-SBBA SKIN LESIONS, OVER 4 10/13/19 77366-VHLC SKIN LESIONS, OVER 4 01/12/20 93807-CKSZ SKIN LESIONS, OVER 4 04/12/19 50952-VTME SKIN LESIONS, OVER 4 07/14/19 92471-JQQB SKIN LESIONS, OVER 4 10/18/19 91595-WBLI SKIN LESIONS, OVER 4 01/17/20 54074-CVHJ SKIN LESIONS, OVER 4 04/24/19 06444-AWXR SKIN LESIONS, OVER 4 07/25/19 03872-YJTS SKIN LESIONS, OVER 4 11/21/19 22222-DHJY SKIN LESIONS, 2 TO 4 07/26/19 17 98505, K2264-ELJDP/INJECT, JOINT/BURSA 0 04/13/2018 52102, J0702- Neuroma/Injection 11/20/19 16 09209-Qwocjgfpw, Toes 05/10/2016 48327-Hzianjlfn, Toes 05/15/2016 23660-Iuwqzkzxs, Toes 03/12/2023 Next Appt Details Provider Name:Melina Muñoz trenton, 02/18/2024 09:15:00 AM, [address] [facility], [place], [address], Insurance Providers Payer Name Payer Address Payer Phone Subscriber Number Group Number Insured Name Patient Relationship to Insured Coverage Start Date Coverage End Date Medicare National [employer] [address] [place] [address] [id number] [id number] Soja, Lynda Self - patient is the insured [employer]) [address] [place] [address] [id number] Shayan Leslie Spouse - patient is the spouse of the insured Medical (General) History Medical History History ICD Code Anemia Anxiety [...] Exostectomy R 5 th toe P/B 07/31/2022 Back surgery 10/20/23 Hospitalization History Reason Date(Month/Year) [facility] ER- Fall - police told h er to get knee checked out- couldn't walk 12/03/22 Hospital in [place] /[facility] 5 days after sx ba ck blood clot / c.diff 03/2020 [facility]- pancolitis 02/13/19 [facility] X 3 Days, Pt sstates she fell, dx: c oncusion 05/18/2017
--- OUTSIDE RECORDS SUMMARY | 2024-02-11 04:18 | XMS_ITS ---
Author Organization [facility] Address [address] [facility] [place] [address] Care Team Providers Care Trim Crew Supervisor Name Role Phone Jia Parmar MD Primary Care Provider Alexandre Arriaga Unavailable [phone] Allergies Allergen (clinical drug ingredient) Drug/Non Drug [...] End Date Status Aerochamber Plus Not -Taking Benzonatate 200 MG 1 capsule Orally Three times a day Not-Taking Cyanocobalamin B12 injection 1 X per M Not-Taking Fish Oil 1000 mg 1 capsule Orally Once a day Not-Taking Esomeprazole Magnesium Not-Taking Physical Therapy . . . 2-3x/week for 3-4 weeks 04/10/2016 Not-Taking Physical Therapy . . . 2-3x/week for 3-4 weeks 07/08/2016 Not-Taking Colchicine 0.6 MG 1 tablet Orally Once a day for 30 day(s) 05/02/2016 Not-Taking Lunesta 3 MG 1 tablet immediately before bedtime Orally Once a day Not-Taking Physical Therapy . . . 2-3x/week for 3-4 weeks Not-Taking Xopenex Not-Taking Gabapentin 300 MG 1 capsule Orally Three times a day for 30 day(s) Not-Taking Dramamine Not-Taking Levalbuterol Tartrate Not-Taking Lidocaine 5 % 1 patch to intact skin remove after 12 hours Externally Once a day Not-Taking Nortriptyline HCl 10 MG TK 1 C PO QD HS UTD Orally Not-Taking Qvar 40 MCG/ACT 1 puff Inhalation Twice a day Not-Taking traMADol HCl Not-Reji ing Physical Therapy 3-4x per week for 3-4 weeks Not-Taking Ultram 50 MG 1 tablet as needed Orally every 6 hrs for 5 days 02/19/2017 Not-Taking Skelaxin 800 MG 1 tablet Orally Three times a day PRN Not-Taking traMADol HCl 50 MG 1 tablet as needed Orally every 6 hrs for 10 days PRN 03/10/2017 Not-Taking ALPRAZolam XR 0.5 MG 1 tablet Orally twice a day Not-Taking Lexapro 5 MG 1 tablet Orally Once a day Not-Taking Timolol Maleate 0.5 % Ophthalmic Not-Taking Budesonide ER 20 mg Not-Taking Gabapentin 300 MG 1 capsule before bedtime Orally Three times a day for 30 days Not-Taking NexIUM 40 MG 1 capsule Orally Once a day Not-Taking Gabapentin 600 1 TABLET THREE TIMES A DAY ORALLY 30 DAY(S) for 30 Not-Taking Gabapentin 600 MG TAKE 1 TABLET BY MOUTH THREE TIMES DAILY for 30 Not-Taking Xarelto Not-Taking Nortriptyline HCl No t-Taking rOPINIRole HCl FOR RLS Not-T aking Extra Depth Orthopedic Shoes (1 Pair) with Customized Heat Molded Multidensity Innersoles (3 Pair) as directed Dx: NIDDM/Polyneuropath y (E11.42), Hammertoe Foot Deformity (M20.41,M20.42), Preulcerative Skin Lesion(s) (L85.1 07/13/2018 Not-Taking Extra Depth Diabetic Shoes with 3 Pair Custom heat-molded multi-density innersoles for 1 year Dx: 10/23/2016 Not-Taking Budesonide 3 MG as directed Orally Once a day Not-Taking oxyCODONE HCl 5 MG 0.5 tablet as needed Orally every 6 hrs for 5 days 08/08/2022 Not-Taking Extra Depth Diabetic Shoes with 3 Pair Custom heat-molded multi-density innersoles for 1 year Dx: Active Vitamin D3 Active Xalatan 0.005 % 1 drop into affected eye in the evening Ophthalmic Once a day Active Synthroid 50 MCG 1 tablet Orally Once a day Active Timolol Hemihydrate 0.5 % 1 drop into affected eye Ophthalmic Once a day Active Gabapentin 300 1 CAPSULE BEFORE BEDTIME THREE TIMES A DAY ORALLY 30 DAYS for 30 Active Multivitamin Adults 50+ Orally Active Prilosec Active Diclofenac gel, used with PSK cream up to 4 times a day Active Clindamycin HCl 300 MG 1 capsule Orally every 6 hrs for 5 days PRN for DENTIST 06/10/2016 Active Crestor 5 MG 1 tablet Orally Once a day Active Caltrate 600+D 600-800 MG-UNIT 1 tablet Orally Twice a day Active eliquis Active amLODIPine Besylate 5 MG 1 tablet Orally bid Active Antibiotic Active Ammonium Molybdate A ctive hydrALAZINE HCl Acti ve Spironolactone 25 MG 1 tablet Orally Once a day Active Social History Tobacco Use: Social History Observation Description Date Details (start date - stop date) Never Smoker NA - NA Tobacco Use/Smoking Question Answer Notes Are you a: nonsmoker Additional Findings: Tobacco Non-User Current no n-smoker Tobacco use other than smoking: Question Answer Notes Are you an other tobacco user? No Vital Signs Height 5 ft 0 in in 11/13/2023 Weight 114 lbs 11/13/2023 BMI 22.26 kg/m2 11/13/2023 Blood pressure systolic 148 mm Hg 11/13/19 24 Blood pressure diastolic 69 mm Hg 024 Encounters Encounter Location Date Provider Diagnosis [facility] [address] [place] [address] 11/13/2023 Alexandre Williamson Pain in right toe(s) [...] Treatment Notes Treatment Clinical Notes Section Notes 11/13/2023 Pain in right toe(s) (ICD-10 - M79.674) 11/13/2023 Other hammer toe(s) (acquired), right foot (ICD-10 - M20.41) 11/13/2023 Type 2 diabetes mellitus with diabetic polyneuropathy (ICD-10 - E11.42) 11/13/2023 Exostosis of right foot (ICD-10 - M89.8X7) 11/13/2023 Atherosclerosis of artery of both lower extremities (ICD-10 - I70.203) 11/13/2023 Tinea unguium (ICD-10 - B35.1) 11/13/2023 Pain in left toe(s) (ICD-10 - M79.675) Plan Of Treatment Next Appt Details Follow Up: 3 Months, 2 Month s, Reason: Provider Name:Melina chowdhury, 02/18/2024 09:15:00 AM, [address] [place] [address], [phone], Procedure Notes * Category Sub-Category Detail Notes [...] as necessary. Patient chooses, no pharmaceutical tx (23475) Keratoma Treatment Parring or Cutting o f Benign Hyperkeratotic Lesion(s) 30728 ( >4 Lesions) - The Benign hyperkeratotic lesions, as described above were pared, and/or cut utilizing a sterile #15 blade, tissue nippers, and/or dremel Progress Notes * Lynda DRIVER DDOB:1945 ( 78 yo F)Acc No.[id number]:11/13/2023 Progress Note Patient:?Lynda Driver Provider:?Alexandre Williamson DPM :1945???Age:78 Y???Sex:Female D ate:11/13/2023 Address:[address] [place] [address] [id number] Pcp:Jia Parmar MD Subjective: * Chief Complaints: * ???Painful nail(s) aggrevate d by shoes and causing difficulty standing/walking. * HPI: ???Painful Nails:?Pt States Last PCP Visit:?Date:?11/06/2023 ???Toe pain:?Nature:?swelling, tenderness, aching.?Location:?5th toe, Right foot.?Duration:?several months.?Course:?improved.?Aggravated by:?any pressure, shoes.?Treatments:?bracing/splinting/padding; ht sx 07/23 with [...] R4th,5th toes, Exostectomy R 5th toe P/B 3Back surgery 10/20/23 * Hospitalization/Major Diagno stic Procedure:?[facility] X 3 [...] than smoking?Are you an other tobacco user??No ???Miscellaneous:?Caffeine: yes, 1-2 cups per day. ?Children: yes, 3. ?Exercise: yes, housework, gardening. ?Marital status: . 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 * Medications:?TakinghydrALAZI NE HCl Spironolactone 25 MG Tablet 1 tablet Orally [...] heat-molded multi-density innersoles for 1 year Dx:Taking hydrALAZINE HCl Taking Spironolactone 25 MG Tablet 1 tablet Orally [...] Depth Diabetic Shoes with 3 Pair Custom heat- molded multi-density innersoles for 1 year Dx:Not-Taking/PRNBudesonide 3 [...] Objective: * Vitals:?Ht: 5 ft 0 in, Wt: 1 14, BMI: 22.26, Shoe size: 5-5.5, BP: 148/69 mm Hg, BS: not taken, Wt-k.71 kg. * ???Past Orders: ???Lab:HEMOGLOBIN A1C (GLYCO HEMOGLOBIN) (Order Date - 11/06/2023) (Collection Date - 11/06/2023) ? Value Reference Range ?HEMOGLOBIN A1C % (HH) 5.0 * Examination: ???Ophthalmology Referral: ?DIABETES EYE EXAM?General [...] EXTERMITIES:?decreased, cool to cool, proximal to distal, B/L.?TROPHIC CONDITION FOR TEXTURE/ELASTICITY/TURGOR/HAIR GROWTH:?decreased, B/L , sparce hair growth.?PIGMENTATION:?normal, B/L.?EDEMA:? 2/4, [...] as necessary. Patient chooses, no pharmaceutical tx (87458).?Keratoma Treatment:?Parring or Cutting of Benign Hyperkeratotic Lesion(s)?14778 ( >4 Lesions) - The Benign hyperkeratotic lesions, as described above were pared, and/or cut utilizing a sterile #15 blade, tissue nippers, and/or dremel.? * Procedure Codes:?75058 TRIM SKIN LESIONS, OVER 4, Modifiers: XS 46092 DEBRIDE NAIL, 6 OR MORE, Modifiers: XS * Follow Up:?3 Months, 2 Month s * Images: * Sign off status: Completed true * Provider:?Alexandre Williamson DPM Date:? 024 Generated for Anisha stephen/Jaspal/eTransmitting on:?02/11/2024 04:17 AM EST History and Physical Notes * HPI (History of Present Illness) Category Sub-Category Detail Notes Category Not es Toe pain Nature: swelling, tenderness, aching Location: 5th toe, Right foot Duration: several months Course: improved Aggravated by: any pressure, shoes Treatments: bracing/splinting/pa dding; ht sx 07/[address] Hays Painful Nails Pt States Last PCP Visit: Date:: 11/06/2023 Examination Category Sub-Category Detail Notes Category Not [...]
== END 2024-02-05 16:24 | disposition home or self-care (01) ==
PROVIDERS: PCP Internal Medicine; Visit Provider Physician Assistant
DX: M48.061 Spinal stenosis, lumbar region without neurogenic claudication (principal); M51.369 Other intervertebral disc degeneration, lumbar region without mention of lumbar back pain or lower extremity pain
CPT/HCPCS: 99213

== ENCOUNTER 2024-02-06 16:17 | Outpatient (REF) | payer MEDICARE, OTHER, SELFPAY | END 2024-02-06 16:18 | disposition home or self-care (01) | LOC: HO.HOSX 16:17 | PROVIDERS: Visit Provider Physician Assistant | DX: M48.061 Spinal stenosis, lumbar region without neurogenic claudication (principal); M51.360 Other intervertebral disc degeneration, lumbar region with discogenic back pain only | CPT/HCPCS: 72110 ==

== ENCOUNTER 2024-03-10 08:55 | Outpatient (REF) | payer MEDICARE, OTHER, SELFPAY ==
--- OUTSIDE RECORDS SUMMARY | 2024-03-10 09:01 | XMS_ITS ---
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 ?Marital status: . ?Occupation: retired- [employer]. * Medications:?TakinghydrALAZI NE HCl Spironolactone 25 MG [...] as necessary. Patient chooses, no pharmaceutical tx (53594).?Keratoma Treatment:?Parring or Cutting of Benign Hyperkeratotic Lesion(s)?53894 ( >4 Lesions) - The Benign hyperkeratotic lesions, as described above were pared, and/or cut utilizing a sterile #15 blade, tissue nippers, and/or dremel.? * Procedure Codes:?47909 TRIM SKIN LESIONS, OVER 4, Modifiers: XS 02344 DEBRIDE NAIL, 6 OR MORE, Modifiers: XS * Follow Up:?3 Months, 2 Month s * Images: * Sign off status: Completed true * Provider:?Alexandre Williamson DPM Date:? 024 Generated for Sheai zafar/Tomaszg/eTransmitting on:?03/10/2024 09:01 AM EST History and Physical Notes * [...] Eye Exam:: no retin opathy Vascular DP PULSES (B): 0/4, B/L PT PULSES (B): 1/4, B/L CAPILLARY FILL TIME: 3 secs. per digit, B/L TEMPERTURE GRADIENT (C): decreased, cool to cool, proximal to distal, B/L TROPHIC CONDITION-TEXTURE/ELASTICITY/TURGOR/HAIR GROWTH (B): decreased, B/L , sparce hair growth EDEMA (C): 2/4, Right 5th toe TELANGECTASIA: absent VARICOSITIES: absent PIGMENTATION: normal, B/L Nails NAILS are: elongated,overgr own,dystrophic,greater than 3mm thick,discolored and friable with crumbly malodorous subungual debris, with pain on palpation, 1-5 B/L
--- OUTSIDE RECORDS SUMMARY | 2024-03-10 09:01 | XMS_ITS ---
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 . . 2-3x/week for 3-4 weeks Not-Taking Colchicine 0.6 MG 1 tablet Orally Once a day for 30 day(s) 05/02/2016 Not-Taking Lunesta 3 MG 1 tablet immediately before bedtime Orally Once a day Not-Taking Benzonatate 200 MG 1 capsule Orally Three times a day Not-Taking Lidocaine 5 % 1 patch to intact skin remove after 12 hours Externally Once a day Not-Taking Xopenex Not-Taking Gabapentin 300 MG 1 capsule Orally Three times a day for 30 day(s) Not-Taking Physical Therapy . . . 2-3x/week for 3-4 weeks 04/10/2016 Not-Taking Physical Therapy . . . 2-3x/week for 3-4 weeks 07/08/2016 Not-Taking Physical Therapy 3-4x per week for 3-4 weeks Not-Taking Ultram 50 MG 1 tablet as needed Orally every 6 hrs for 5 days 02/19/2017 Not-Taking Nortriptyline HCl 10 MG TK 1 C PO QD HS UTD Orally Not-Taking Dramamine Not-Taking Levalbuterol Tartrate Not-Taking ALPRAZolam XR 0.5 MG 1 tablet Orally twice a day Not-Taking Lexapro 5 MG 1 tablet Orally Once a day Not-Taking Timolol Maleate 0.5 % Ophthalmic Not-Taking Qvar 40 MCG/ACT 1 puff Inhalation Twice a day Not-Taking traMADol HCl Not-Reji ing Gabapentin 600 MG TAKE 1 TABLET BY MOUTH THREE TIMES DAILY for 30 Not-Taking Budesonide ER 20 mg Not-Taking Gabapentin 300 MG 1 capsule before bedtime Orally Three times a day for 30 days Not-Taking Skelaxin 800 MG 1 tablet Orally Three times a day PRN Not-Taking traMADol HCl 50 MG 1 tablet as needed Orally every 6 hrs for 10 days PRN 03/10/2017 Not-Taking Extra Depth Orthopedic Shoes (1 Pair) with Customized Heat Molded Multidensity Innersoles (3 Pair) as directed Dx: NIDDM/Polyneuropath y (E11.42), Hammertoe Foot Deformity (M20.41,M20.42), Preulcerative Skin Lesion(s) (L85.1 07/13/2018 Not-Taking Extra Depth Diabetic Shoes with 3 Pair Custom heat-molded multi-density innersoles for 1 year Dx: 10/23/2016 Not-Taking Xarelto Not-Taking NexIUM 40 MG 1 capsule Orally Once a day Not-Taking Gabapentin 600 1 TABLET THREE TIMES A DAY ORALLY 30 DAY(S) for 30 Not-Taking Extra Depth Diabetic Shoes with 3 Pair Custom heat-molded multi-density innersoles for 1 year Dx: Active Budesonide 3 MG as directed Orally Once a day Not-Taking oxyCODONE HCl 5 MG 0.5 tablet as needed Orally every 6 hrs for 5 days 08/08/2022 Not-Taking Nortriptyline HCl No t-Taking rOPINIRole HCl FOR RLS Not-T aking Prilosec Active Synthroid 50 MCG 1 tablet Orally Once a day Active Timolol Hemihydrate 0.5 % 1 drop into affected eye Ophthalmic Once a day Active Vitamin D3 Not-Takin g Xalatan 0.005 % 1 drop into affected eye in the evening Ophthalmic Once a day Active Ammonium Lactate 12 % 1 application Externally to affected areas of dry skin to feet except for between the toes Twice a day for 30 days Active Diclofenac gel, used with PSK cream up to 4 times a day Not-Taking eliquis Active Gabapentin 300 1 CAPSULE BEFORE BEDTIME THREE TIMES A DAY ORALLY 30 DAYS for 30 Active Multivitamin Adults 50+ Orally Active Crestor 5 MG 1 tablet Orally Once a day Active Antibiotic Active Ammonium Molybdate A ctive Caltrate 600+D 600-800 MG-UNIT 1 tablet Orally Twice a day Active Clindamycin HCl 300 MG 1 capsule Orally every 6 hrs for 5 days PRN for DENTIST 06/10/2016 Active Esomeprazole Magnesium Not-Taking Aerochamber Plus Not -Taking hydrALAZINE HCl Not- Taking Spironolactone 25 MG 1 tablet Orally Once a day Active amLODIPine Besylate 5 MG 1 tablet Orally bid Active Fish Oil 1000 mg 1 capsule Orally Once a day Not-Taking Social History Tobacco Use: Social History Observation [...] Problem Status W/U Status Risk Notes Problem Polyneuropathy due to diabetes mellitus type I ([id number]) 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 Vital Signs Height 5 ft 0 in in 02/18/2024 Weight 111 lbs 02/18/2024 BMI 21.68 kg/m2 02/18/2024 Blood pressure systolic 120 mm Hg 02/18/20 24 Blood pressure diastolic 65 mm Hg 024 Procedures Procedure Date Ordered Date Performed Result Body Sit e 84512-WKBPFMY NAIL, 6 OR MORE 02/18/2024 N/A [id number]-[id number] SKIN LESIONS, OVER 4 02/18/2024 N/A Encounters Encounter Location Date Provider Diagnosis [facility] [address] [address] 02/18/2024 Melina Booth Type 2 diabetes mellitus with diabetic polyneuropathy E11.42 ; Tinea unguium B35.1 and Xerosis of skin L85.3 Assessments Encounter Date Diagnosis (ICD Code) Assessment Notes Treatment Notes Treatment Clinical Notes Section Notes 02/18/2024 Type 2 diabetes mellitus with diabetic polyneuropathy (ICD-10 - E11.42) 02/18/2024 Tinea unguium (ICD-10 - B35.1) 02/18/2024 Xerosis of skin (ICD-10 - L85.3) Plan Of Treatment Medication Medication Name Sig Start Date Stop Date Notes Ammonium Lactate 12 % 1 application Exte rnally to affected areas of dry skin to feet except for between the toes Twice a day for 30 days Pending Test Test Name Order Date [id number]-YKLSSTD NAIL, 6 OR MORE 02/18/2024 [id number] SKIN LESIONS, OVER 4 02/18/20 24 Next Appt Details Follow Up: 3 Months, Reason: Provider Name:Melina chowdhury, 06/24/2024 09:00:00 AM, [address] [place] [address], [phone], Procedure Notes * Category Sub-Category Detail Notes Debride Nail 6-10 Nail debridement Due to the cl inical pathology outlined in the exam findings, performance of this nail treatment is medically necessary as its management by an unskilled/untrained nonprofessional would put this patients foot and overall health at risk. Therefore, debridement to affected nail(s), as described in exam ( TA, T1, T2, T3, T4, T5, T6, T7, T8, T9, ), was performed exclusively by the physician of record to reduce/remove overall nail length, girth, thickness, subungual debris, and necrotic tissue, by manual and/or electrical means through the use of a nail nipper and/or dremel-type chicle grinder feeder, to a more viable healthy nail plate or bed tissue 6-10 nails in total. Silver nitrate was used for any petechial bleeding as necessary. Definitive antifungal treatment options, both pharmaceutical and surgical, have been reviewed and discussed with the patient. The patient solely prefers the use of intermittent/as needed professional debridement services for their nail condition and understands the need for additional periodic treatments to maintain effectiveness in symptomatic relief - 77982 Keratoma Treatment Parring or Cutting o f Benign Hyperkeratotic Lesion(s) (-57) More than 4 Lesions - Due to the at risk nature of the patients medical condition as documented in the exam findings, performance of this keratoderma treatment is medically necessary as its management by an unskilled/untrained nonprofessional would put this patients foot and overall health at risk. Therefore, the benign hyperkeratotic lesions, ( _6 ) in total, locations as stated and described in the exam ( sub 1st MTH B/L, sub 5th MTH B/L, plantar heels B/L), were pared, and/or cut utilizing a sterile 15 blade, tissue nippers, and/or power dremel instrumentation by the physician of record - [id number] Progress Notes * Lynda LESLIE DDOB:1945 ( 79 yo F)Acc No.[id number]:02/18/2024 Progress Note Patient:?VILLA Lynda D Provider:?Melina Booth DPM :1945???Age:79 Y???Sex:Female D ate:02/18/2024 Address:[address] [place], [place] [id number] Pcp:Jia Parmar MD Subjective: * Chief Complaints: * ???At Risk FootcareSkin prob nicholas(s) * HPI: ???At Risk footcare:?Pt States Last PCP Visit:?Date?11/06/2023 ???Skin problems:?Nature:?dryness , scaling.?Location:?B/L .?Duration:?several days.?Course:?worse.? * ROS:?General/Constitutional:?Nausea?denies.?Vomiting?denies.?Hunger Thirst?denies.?Loss appetite?denies.?Chills?denies.?Fatigue?denies.?Fever?denies.?Night Sweats?denies.?Unexplained weight loss?denies.?Unexplained [...] - RT leg 05/09/17Back surgery 01/19Knee infection 1pick line aser surgery 07/05/20vertebrae neck sx 12/20/20colonoscopy 11/19/21Mouth Surgery 06/2022HT repair R4th,5th toes, Exostectomy R 5th toe P/B 3Back surgery 10/20/23 * Hospitalization/Major Diagno stic Procedure:?[facility] X 3 Days, Pt sstates she fell, dx: concusion 05/18/2017[facility]- pancolitis 02/13/19[place] [facility] 5 days after sx back blood clot / c.diff 03/2020[facility] ER- Fall - police told her to get knee checked out- couldn't walk 12/03/22 * Family History:?Mother: dece ased, poor circulation, diagnosed with Other malignant neoplasm of unspecified site, Unspecified essential hypertension, Unspecified cerebral artery occlusion with cerebral infarction, Family history of arthritis.?Father: , poor circulation, kidney/liver disease, diagnosed with Unspecified essential hypertension, Unspecified cerebral artery occlusion with cerebral infarction, Family history of arthritis.?Daughter(s): alive.?Son(s): alive.?Paternal Grand Mother: heart attack, diagnosed [...] housework, gardening. ?Marital status: . 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 * Medications:?TakingSpironola ctone 25 MG Tablet 1 tablet Orally Once a day amLODIPine Besylate 5 MG Tablet 1 tablet Orally bid Antibiotic Ammonium Molybdate Caltrate 600+D 600-800 MG-UNIT Tablet 1 tablet Orally Twice a day Clindamycin HCl 300 MG Capsule 1 capsule Orally every 6 hrs , Notes to Pharmacist: PRN for DENTISTCrestor 5 MG Tablet 1 tablet Orally Once a day eliquis Gabapentin 300 Capsule 1 CAPSULE BEFORE BEDTIME THREE TIMES A DAY ORALLY 30 DAYS Multivitamin Adults 50+ Tablet Orally Prilosec Synthroid 50 MCG Tablet 1 tablet Orally Once a day Timolol Hemihydrate 0.5 % Solution 1 drop into affected eye Ophthalmic Once a day Xalatan 0.005 % Solution 1 drop into affected eye in the evening Ophthalmic Once a day Extra Depth Diabetic Shoes with 3 Pair Custom heat-molded multi-density innersoles for 1 year Dx: Taking Spironolactone 25 MG Tablet 1 tablet Orally Once a day Taking amLODIPine Besylate 5 MG Tablet 1 tablet Orally bid Taking Antibiotic Taking Ammonium Molybdate Taking Caltrate 600+D 600-800 MG-UNIT Tablet 1 tablet Orally Twice a day Taking Clindamycin HCl 300 MG Capsule 1 capsule Orally every 6 hrs , Notes to Pharmacist: PRN for DENTISTTaking Crestor 5 MG Tablet 1 tablet Orally Once a day Taking eliquis Taking Gabapentin 300 Capsule 1 CAPSULE BEFORE BEDTIME THREE TIMES A DAY ORALLY 30 DAYS Taking Multivitamin Adults 50+ Tablet Orally Taking Prilosec Taking Synthroid 50 MCG Tablet 1 tablet Orally Once a day Taking Timolol Hemihydrate 0.5 % Solution 1 drop into affected eye Ophthalmic Once a day Taking Xalatan 0.005 % Solution 1 drop into affected eye in the evening Ophthalmic Once a day Taking Extra Depth Diabetic Shoes with 3 Pair Custom heat-molded multi-density innersoles for 1 year Dx: Not-Taking/PRNhydrALAZINE HCl Diclofenac gel, used with PSK cream up to 4 times a day Vitamin D3 Budesonide 3 MG Capsule Delayed Release Particles as directed Orally Once a day oxyCODONE HCl 5 MG Tablet 0.5 tablet as needed Orally every 6 hrs Nortriptyline HCl rOPINIRole HCl , Notes to Pharmacist: FOR RLSExtra Depth Orthopedic Shoes (1 Pair) with Customized Heat Molded Multidensity Innersoles (3 Pair) as directed Dx: NIDDM/Polyneuropathy (E11.42), Hammertoe Foot Deformity (M20.41,M20.42), Preulcerative Skin Lesion(s) (L85.1 Extra Depth Diabetic Shoes with 3 Pair Custom heat-molded multi-density innersoles for 1 year Dx: Xarelto NexIUM 40 MG Capsule Delayed Release 1 capsule Orally Once a day Gabapentin 600 tablet 1 TABLET THREE TIMES A DAY ORALLY 30 DAY(S) Gabapentin 600 MG Tablet TAKE 1 TABLET BY MOUTH THREE TIMES DAILY Budesonide ER 20 mg Gabapentin 300 MG Capsule 1 capsule before bedtime Orally Three times a day Skelaxin 800 MG Tablet 1 tablet Orally Three times a day , Notes to Pharmacist: PRNtraMADol HCl 50 MG Tablet 1 tablet as needed Orally every 6 hrs , Notes to Pharmacist: PRNALPRAZolam XR 0.5 MG Tablet Extended Release 24 Hour 1 tablet Orally twice a day Lexapro 5 MG Tablet 1 tablet Orally Once a day Timolol Maleate 0.5 % Solution Ophthalmic Qvar 40 MCG/ACT Aerosol Solution 1 puff Inhalation Twice a day traMADol HCl Physical Therapy 3-4x per week for 3-4 weeks Ultram 50 MG Tablet 1 tablet as needed Orally every 6 hrs Nortriptyline HCl 10 MG Capsule TK 1 C PO QD HS UTD Orally Dramamine Levalbuterol Tartrate Lidocaine 5 % Patch 1 patch to intact skin remove after 12 hours Externally Once a day Xopenex Gabapentin 300 MG Capsule 1 capsule Orally Three times a day Physical Therapy . . . . 2-3x/week Physical Therapy . . . . 2-3x/week Physical Therapy . . . . 2-3x/week Colchicine 0.6 MG Tablet 1 tablet Orally Once a day Lunesta 3 MG Tablet 1 tablet immediately before bedtime Orally Once a day Benzonatate 200 MG Capsule 1 capsule Orally Three times a day Cyanocobalamin , Notes to Pharmacist: B12 injection 1 X per MFish Oil 1000 mg Capsule 1 capsule Orally Once a day Esomeprazole Magnesium Aerochamber Plus Medication List reviewed and reconciled with the patientNot-Taking/PRN hydrALAZINE HCl Not-Taking/PRN Diclofenac gel, used with PSK cream up to 4 times a day Not-Taking/PRN Vitamin D3 Not-Taking/PRN Budesonide 3 MG Capsule Delayed Release Particles as directed Orally Once a day Not-Taking/PRN oxyCODONE HCl 5 MG Tablet 0.5 tablet as needed Orally every 6 hrs Not-Taking/PRN Nortriptyline HCl Not-Taking/PRN rOPINIRole HCl , Notes to Pharmacist: FOR RLSNot-Taking/PRN Extra Depth Orthopedic Shoes (1 Pair) with Customized Heat Molded Multidensity Innersoles (3 Pair) as directed Dx: NIDDM/Polyneuropathy (E11.42), Hammertoe Foot Deformity (M20.41,M20.42), Preulcerative Skin Lesion(s) (L85.1 Not-Taking/PRN Extra Depth Diabetic Shoes with 3 Pair Custom heat-molded multi-density innersoles for 1 year Dx: Not-Taking/PRN Xarelto Not-Taking/PRN NexIUM 40 MG Capsule Delayed Release 1 capsule Orally Once a day Not-Taking/PRN Gabapentin 600 tablet 1 TABLET THREE TIMES A DAY ORALLY 30 DAY(S) Not-Taking/PRN Gabapentin 600 MG Tablet TAKE 1 TABLET BY MOUTH THREE TIMES DAILY Not-Taking/PRN Budesonide ER 20 mg Not-Taking/PRN Gabapentin 300 MG Capsule 1 capsule before bedtime Orally Three times a day Not-Taking/PRN Skelaxin 800 MG Tablet 1 tablet Orally Three times a day , Notes to Pharmacist: PRNNot-Taking/PRN traMADol HCl 50 MG Tablet 1 tablet as needed Orally every 6 hrs , Notes to Pharmacist: PRNNot-Taking/PRN ALPRAZolam XR 0.5 MG Tablet Extended Release 24 Hour 1 tablet Orally twice a day Not-Taking/PRN Lexapro 5 MG Tablet 1 tablet Orally Once a day Not-Taking/PRN Timolol Maleate 0.5 % Solution Ophthalmic Not-Taking/PRN Qvar 40 MCG/ACT Aerosol Solution 1 puff Inhalation Twice a day Not-Taking/PRN traMADol HCl Not-Taking/PRN Physical Therapy 3-4x per week for 3-4 weeks Not-Taking/PRN Ultram 50 MG Tablet 1 tablet as needed Orally every 6 hrs Not-Taking/PRN Nortriptyline HCl 10 MG Capsule TK 1 C PO QD HS UTD Orally Not-Taking/PRN Dramamine Not-Taking/PRN Levalbuterol Tartrate Not-Taking/PRN Lidocaine 5 % Patch 1 patch to intact skin remove after 12 hours Externally Once a day Not-Taking/PRN Xopenex Not-Taking/PRN Gabapentin 300 MG Capsule 1 capsule Orally Three times a day Not-Taking/PRN Physical Therapy . . . . 2-3x/week Not- Taking/PRN Physical Therapy . . . . 2-3x/week Not-Taking/PRN Physical Therapy . . . . 2- 3x/week Not-Taking/PRN Colchicine 0.6 MG Tablet 1 tablet Orally Once a day Not- Taking/PRN Lunesta 3 MG Tablet 1 tablet immediately before bedtime Orally Once a day Not-Taking/PRN Benzonatate 200 MG Capsule 1 capsule Orally Three times a day Not-Taking/PRN Cyanocobalamin , Notes to Pharmacist: B12 injection 1 X per MNot-Taking/PRN Fish Oil 1000 mg Capsule 1 capsule Orally Once a day Not- Taking/PRN Esomeprazole Magnesium Not-Taking/PRN Aerochamber Plus Medication List reviewed and reconciled with the patient * Allergies:?AlbuterolCephalex inLactoseMacrodantinIndocinGlutenBactrimVentolin HFALatexPercocet: Restlessness, Nervousness, Feels like she's wiredAdhesiveyes[Allergies Verified] Objective: * Vitals:?Ht: 5 ft 0 in, Wt:11 1, BMI: 21.68, Shoe size:5-5.5, BP:120/65mm Hg, Wt- k.35 kg. * ???Past Orders: ???Lab:HEMOGLOBIN A1C (GLYCO HEMOGLOBIN) (Order Date - 11/06/2023) (Collection Date & Time - 11/06/2023 12:03 PM) ? Value Reference Range ?HEMOGLOBIN A1C % (HH) 5.0 * Examination: ???Ophthalmology Referral: ?DIABETES EYE EXAM?Neurological: ?SENSORY:? Neurological exam demonstrates, reduced light touch sensation, reduced sharp/dull pin prick discrimination , B/L, 5.07 monofilament test performed at plantar aspects of 5 varied sites per foot shows sensation, reduced , B/L.?Nails: ?NAILS are:?Elongated, overgrown, dystrophic, lytic, greater than 3mm thick, discolored and friable with crumbly malodorous subungual debris, TA, T1, T2, T3, T4, T5, T6, T7, T8, T9.?Dermatologic: ?SKIN FINDINGS:?Skin exam reveals Keratotic lesion(s) located at sub 1st MTH B/L, sub 5th MTH B/L, plantar heels B/L , Skin shows sign(s) of, dryness, scaling, in a stocking fashion, no fissure(s) present, B/L.?Vascular: ?DP PULSES (B):??0/4, B/L.?PT PULSES (B):? 1/4, B/L.?CAPILLARY FILL TIME:?3 secs. per digit, B/L.?TROPHIC CONDITION-TEXTURE/ELASTICITY/TURGOR/HAIR GROWTH (B):?decreased, B/L , sparce hair growth.?TEMPERTURE GRADIENT (C):?decreased, cool to cool, proximal to distal, B/L.?PIGMENTATION:?normal, B/L.?EDEMA (C):?non-pitting, without aching pain, Ankle(s), Leg(s), B/L.?TELANGECTASIA:?absent.?VARICOSITIES:?absent.?Orthopedic: ?MUSCLE STRENGTH:?5/5 all groups in a symmetrical fashion, B/L.?General Examination: ?GENERAL APPEARANCE:?Reveals a pleasant, alert, well nourished, well- developed, well hydrated individual, who demonstrates proper attention to hygiene/body habitus, and is in no acute distress, Pt serves as own historian for office visit today.?ORIENTED:?person, place, and time.? Assessment: * Assessment: 1.?Type 2 diabetes mellitus with diabetic polyneuropathy - E11.42 (Primary)???2.?Tinea unguium - B35.1???3.?Xerosis of skin - L85.3???Specify :Acute problem, Uncomplicated (3),Rx Management (4)??? Plan: * Treatment: 2.?Xerosis of skin? Start Ammonium Lactate Cream, 12 %, 1 application, Externally to affected areas of dry skin to feet except for between the toes, Twice a day, 30 days, 140, Refills 2.?? * Procedures:?Debride Nail 6-10:?Nail debridement?Due to the clinical pathology outlined in the exam findings, performance of this nail treatment is medically necessary as its management by an unskilled/untrained nonprofessional would put this patients foot and overall health at risk. Therefore, debridement to affected nail(s), as described in exam (? TA, T1, T2, T3, T4, T5, T6, T7, T8, T9, ), was performed exclusively by the physician of record to reduce/remove overall nail length, girth, thickness, subungual debris, and necrotic tissue, by manual and/or electrical means through the use of a nail nipper and/or dremel-type chicle grinder feeder, to a more viable healthy nail plate or bed tissue 6- 10 nails in total. Silver nitrate was used for any petechial bleeding as necessary. Definitive antifungal treatment options, both pharmaceutical and surgical, have been reviewed and discussed with the patient. The patient solely prefers the use of intermittent/as needed professional debridement services for their nail condition and understands the need for additional periodic treatments to maintain effectiveness in symptomatic relief - 96801.?Keratoma Treatment:?Parring or Cutting of Benign Hyperkeratotic Lesion(s)?(-57) More than 4 Lesions - Due to the at risk nature of the patients medical condition as documented in the exam findings, performance of this keratoderma treatment is medically necessary as its management by an unskilled/untrained nonprofessional would put this patients foot and overall health at risk. Therefore, the benign hyperkeratotic lesions, ( _6 ) in total, locations as stated and described in the exam ( sub 1st MTH B/L, sub 5th MTH B/L, plantar heels B/L), were pared, and/or cut utilizing a sterile 15 blade, tissue nippers, and/or power dremel instrumentation by the physician of record - [id number].? * Procedure Codes:?89688 DEBRI DE NAIL, 6 OR MORE, Modifiers: XS 25789 TRIM SKIN LESIONS, OVER 4, Modifiers: XS * Preventive Medicine:? ??Counseling:?Discussion:?-13: Office or other outpatient visit for the evaluation and management of an established patient, which required a medically appropriate history and/or examination and LOW level of DECISION MAKING for: 1 STABLE ACUTE UNCOMPLICATED PROBLEM, 2 OR MORE MINOR PROBLEMS, OR 1 STABLE CHRONIC PROBLEM, THAT POSE(S) A LOW RISK FOR MORBIDITY/MORTALITY. The visit on the day of the encounter encompassed interpreting the data and educating the patient as to the nature of their condition, treatment options available according to their individual PMH, meds, allergies, and overall health/living conditions, as well as any potential risks or complications that may occur from a failure to adhere to, and participate in, the recommended course of therapy. The discussion included a complete verbal, and/or written explanation of the examination results, any x-rays taken, the proposed diagnosis, and outline of the treatment plan. A schedule for future care needs was also explained. The patient verbalized an understanding of the instructions at this time and agreed to be an active participant in their treatment. If the patient should think of any questions or concerns after the visit, I have encouraged the patient to call the office.?Xerosis:?The patient was counseled on the diagnosis, potential etiologies, and treatment options for their skin condition. We discussed the risks and benefits of each option from performing no treatment, to utilizing OTC topical skin creams/ointments, to utilizing prescription topical creams/ointments, to utilizing customized compounded topical medications and use of nocturnal occlusion with any/all previously detailed therapies. We discussed the advantages and disadvantages of each possible treatment and importance for adherence to all the recommended therapies for optimum success and avoid potential complications such as open sore/infection/possible hospitalization. We discussed the potential effectiveness of each topical preparation as well as each ones possible side effects and/or patient medication interactions. Patient questions re: use, dosage, successful outcomes, and application consistency were reviewed and the patient verbalized that all answers were clearly understood. The patient has decided to apply Rx skin creams to their feet save the interspaces while paying special attention to the heels. Such was sent to their pharmacy at the time of visit.? * Follow Up:?3 Months * Images: * Sign off status: Completed true * Provider:?Melina Booth DPM Date:?04/20/2023 Generated for Anisha stephen/Jaspal/Deonitting on:?03/10/2024 09:00 AM EST History and Physical Notes * HPI (History of Present Illness) Category Sub-Category Detail Notes Category Not es Skin problems Nature: dryness , scaling Location: B/L Duration: several days Course: worse At Risk footcare Pt States Last PCP Visit: Date: 4 Examination Category Sub-Category Detail Notes Category Not es Neurological SENSORY: Neurological exa m demonstrates, reduced light touch sensation, reduced sharp/dull pin prick discrimination , B/L, 5.07 monofilament test performed at plantar aspects of 5 varied sites per foot shows sensation, reduced , B/L Dermatologic SKIN FINDINGS: Skin exam reveal s Keratotic lesion(s) located at sub 1st MTH B/L, sub 5th MTH B/L, plantar heels B/L , Skin shows sign(s) of, dryness, scaling, in a stocking fashion, no fissure(s) present, B/L Orthopedic MUSCLE STRENGTH: 5/5 all groups in a symmetrical fashion, B/L General Examination GENERAL APPEARANCE: Reveals a pleasant, alert, well nourished, well-developed, well hydrated individual, who demonstrates proper attention to hygiene/body habitus, and is in no acute distress, Pt serves as own historian for office visit today ORIENTED: person, place, and t parish Ophthalmology Referral DIABETES EYE EXAM Procedure Perform ed:: No Findings of Diabetic Eye Exam:: no retin opathy Vascular DP PULSES (B): 0/4, B/L PT PULSES (B): 1/4, B/L CAPILLARY FILL TIME: 3 secs. per digit, B/L TEMPERTURE GRADIENT (C): decreased, cool to cool, proximal to distal, B/L TROPHIC CONDITION-TEXTURE/ELASTICITY/TURGOR/HAIR GROWTH (B): decreased, B/L , sparce hair growth EDEMA (C): non-pitting, without aching pain, Ankle(s), Leg(s), B/L TELANGECTASIA: absent VARICOSITIES: absent PIGMENTATION: normal, B/L Nails NAILS are: Elongated, overg rown, dystrophic, lytic, greater than 3mm thick, discolored and friable with crumbly malodorous subungual debris, TA, T1, T2, T3, T4, T5, T6, T7, T8, T9
--- OUTSIDE RECORDS SUMMARY | 2024-03-10 09:01 | XMS_ITS ---
Author Organization [facility] Address [address] [place] [address] Care Team Providers [facility] Manager Name Role Phone Jia Parmar MD Primary Care Provider UnavailMelina Acharya Unavailable [phone] Alexandre Williamson Unavailable [phone] Allergies Allergen (clinical drug ingredient) Drug/Non Drug [...] 024 Encounters Encounter Location Date Provider Diagnosis [facility] [address] [place] [address] 08/21/2023 Alexandre Williamson Pain in right toe(s) [...] Reason: Provider Name:Melina chowdhury, 06/24/2024 09:00:00 AM, [address] [place] [address], [phone], Procedure Notes * Category Sub-Category Detail [...] as necessary. Patient chooses, no pharmaceutical tx (04720) Keratoma Treatment Parring or Cutting o f Benign Hyperkeratotic Lesion(s) 21792 ( >4 Lesions) - The Benign hyperkeratotic lesions, as described above were pared, and/or cut utilizing a sterile #15 blade, tissue nippers, and/or dremel Progress Notes * Lynda DRIVER DDOB:1945 ( 78 yo F)Acc No.[id number]:08/21/2023 Progress Note Patient:?Lnyda Driver Provider:?Alexandre Williamson DPM :1945???Age:78 Y???Sex:Female D ate:08/21/2023 Address:[address] [place] [address] [id number] Pcp:Jia Parmar MD Subjective: * Chief Complaints: [...] gardening. ?Marital status: . 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 * Medications:?TakingSpironola ctone 25 MG Tablet 1 [...] as necessary. Patient chooses, no pharmaceutical tx (67567).?Keratoma Treatment:?Parring or Cutting of Benign Hyperkeratotic Lesion(s)?39967 ( >4 Lesions) - The Benign hyperkeratotic lesions, as described above were pared, and/or cut utilizing a sterile #15 blade, tissue nippers, and/or dremel.? * Procedure Codes:?28730 TRIM SKIN LESIONS, OVER 4, Modifiers: XS 78275 DEBRIDE NAIL, 6 OR MORE, Modifiers: XS * Follow Up:?3 Months, 2 Month s * Images: * Sign off status: Completed true * Provider:?Alexandre Williamson DPM Date:? 024 Generated for Anisha stephen/Jaspal/Noah on:?03/10/2024 09:01 AM EST History and Physical [...]
--- OUTSIDE RECORDS SUMMARY | 2024-03-10 09:01 | XMS_ITS | Patient Health Record ---
Author Organization [facility] Address [address] [facility] [place] [address] Care Team Providers Care Computational Geneticist Name Role Phone Jia Parmar MD Primary Care Provider UnavailMelina Acharya Unavailable [phone] Alexandre Williamson Unavailable [phone] Allergies Allergen (clinical drug ingredient) Drug/Non Drug [...] Duration) Notes Start Date End Date Status Physical Therapy 3-4x per week for 3-4 weeks Not-Taking Ultram 50 MG 1 tablet as needed Orally every 6 hrs for 5 days 02/19/2017 Not-Taking Nortriptyline HCl 10 MG TK 1 C PO QD HS UTD Orally Not-Taking Dramamine Not-Taking Levalbuterol Tartrate Not-Taking Lidocaine 5 % 1 patch to intact skin remove after 12 hours Externally Once a day Not-Taking Xopenex Not-Taking hydrALAZINE HCl Not- Taking Gabapentin 300 MG 1 capsule Orally Three times a day for 30 day(s) Not-Taking Spironolactone 25 MG 1 tablet Orally Once a day Active Physical Therapy . . . 2-3x/week for 3-4 weeks 04/10/2016 Not-Taking amLODIPine Besylate 5 MG 1 tablet Orally bid Active Physical Therapy . . . 2-3x/week for 3-4 weeks 07/08/2016 Not-Taking Antibiotic Active Ammonium Molybdate A ctive Caltrate [...] affected eye Ophthalmic Once a day Active Physical Therapy . . . 2-3x/week for 3-4 weeks Not-Taking Vitamin D3 Not-Takin g Colchicine 0.6 MG 1 tablet Orally Once a day for 30 day(s) 05/02/2016 Not-Taking Xalatan 0.005 % 1 drop into affected eye in the evening Ophthalmic Once a day Active Lunesta 3 MG 1 tablet immediately before bedtime Orally Once a day Not-Taking Benzonatate 200 MG 1 capsule Orally Three times a day Not-Taking Ammonium Lactate 12 % 1 application Externally to affected areas of dry skin to feet except for between the toes Twice a day for 30 days Active Extra Depth Diabetic Shoes with 3 [...] DAY ORALLY 30 DAY(S) for 30 Not-Taking Cyanocobalamin B12 injection 1 X per M Not-Taking Fish Oil 1000 mg 1 capsule Orally Once a day Not-Taking Esomeprazole Magnesium Not-Taking Aerochamber Plus Not -Taking Gabapentin 600 MG TAKE 1 TABLET BY [...] a day Not-Taking traMADol HCl Not-Reji ing Immunizations Vaccine Route Administration Date Status Comme [...] Polyneuropathy due to diabetes mellitus type I (521509060) 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 Problem Localized, primary osteoarthritis of the ankle and/or foot (144934793) Primary osteoarthritis, right ankle and foot (M19.071) Active confirmed Problem Localized, primary osteoarthritis of the ankle and/or foot (548396884) Primary osteoarthritis, left ankle and foot (M19.072) Active confirmed Problem Acquired hammer toe of right foot (6421418772430551) Other hammer toe(s) (acquired), right foot (M20.41) Active confirmed Problem Polyneuropathy due to type 2 diabetes mellitus (954103506) Type 2 diabetes mellitus with diabetic polyneuropathy (E11.42) Active confirmed Problem Primary gout (73275108) Idiopathic gout, right ankle and foot (M10.071) Active confirmed Problem Primary gout (44762084) Idiopathic gout, left ankle and foot (M10.072) Active confirmed Problem [id number] Atherosclerosi s of artery of both lower extremities (I70.203) Active confirmed Vital Signs Blood pressure diastolic 65 mm Hg 02/18/2024 Height 5 ft 0 in in 02/18/2024 Blood pressure systolic 120 mm Hg 02/18/2024 Weight 111 lbs 02/18/2024 BMI 21.68 kg/m2 02/18/2024 Procedures Procedure Date Ordered Date Performed Result Body Sit e 68539-Kwymkadpe, Toes 03/12/2023 N/A 24894-NTVCQFC NAIL, 6 OR MORE 02/18/2024 N/A 84713-GYAU SKIN LESIONS, OVER 4 02/18/2024 N/A Encounters Encounter Location Date [facility] [place] [address] [place] [address] 03/12/2023 Alexandre Williamson Pain in right toe(s) M79.674 ; Other hammer toe(s) (acquired), right foot M20.41 ; Type 2 diabetes mellitus with diabetic polyneuropathy E11.42 ; Exostosis of right foot M89.8X7 ; Atherosclerosis of artery of both lower extremities I70.203 ; Tinea unguium B35.1 and Pain in left toe(s) M79.[address] [address] 05/29/2023 Alexandre Williamson Pain in right toe(s) M79.674 ; Other hammer toe(s) (acquired), right foot M20.41 ; Type 2 diabetes mellitus with diabetic polyneuropathy E11.42 ; Exostosis of right foot M89.8X7 ; Atherosclerosis of artery of both lower extremities I70.203 ; Tinea unguium B35.1 and Pain in left toe(s) M79.[address] [address] 08/21/2023 Alexadnre Williamson Pain in right toe(s) M79.674 ; Other hammer toe(s) (acquired), right foot M20.41 ; Type 2 diabetes mellitus with diabetic polyneuropathy E11.42 ; Exostosis of right foot M89.8X7 ; Atherosclerosis of artery of both lower extremities I70.203 ; Tinea unguium B35.1 and Pain in left toe(s) M79.[address] [address] 11/13/2023 Alexandre Williamson Pain in right toe(s) M79.674 ; Other hammer toe(s) (acquired), right foot M20.41 ; Type 2 diabetes mellitus with diabetic polyneuropathy E11.42 ; Exostosis of right foot M89.8X7 ; Atherosclerosis of artery of both lower extremities I70.203 ; Tinea unguium B35.1 and Pain in left toe(s) M79.[address] [address] 02/18/2024 Melina Booth Type 2 diabetes mellitus [...] Pain in right toe(s) (ICD-10 - M79.674) 02/18/2024 Type 2 diabetes mellitus with diabetic polyneuropathy (ICD-10 - E11.42) 02/18/2024 Tinea unguium (ICD-10 - B35.1) 11/13/2023 Other hammer toe(s) (acquired), right foot (ICD-10 - M20.41) 08/21/2023 Other hammer toe(s) (acquired), right foot [...] with diabetic polyneuropathy (ICD-10 - E11.42) 11/13/2023 Type 2 diabetes mellitus with diabetic polyneuropathy (ICD-10 - E11.42) 02/18/2024 Xerosis of skin (ICD-10 - L85.3) 11/13/2023 Exostosis of right foot (ICD-10 - M89.8X7) 08/21/2023 Exostosis of right foot (ICD-10 - M89.8X7) 05/29/2023 Atherosclerosis of artery of both lower extremities (ICD-10 - I70.203) 03/12/2023 Atherosclerosis of artery of both lower extremities (ICD-10 - I70.203) 03/12/2023 Tinea unguium (ICD-10 - B35.1) 05/29/2023 Tinea unguium (ICD-10 - B35.1) 08/21/2023 Atherosclerosis of artery of both lower extremities (ICD-10 - I70.203) 11/13/2023 Atherosclerosis of artery of both lower extremities (ICD-10 - I70.203) 11/13/2023 Tinea unguium (ICD-10 - B35.1) 05/29/2023 Pain in left toe(s) (ICD-10 - M79.675) 08/21/2023 Tinea unguium (ICD-10 - B35.1) 03/12/2023 Pain in left toe(s) [...] X ray : Foot, right 3V 08/04/2017 05313-ORPJUYM NAIL, 6 OR MORE 10/27/2017 91288-DRECPFU NAIL, 6 OR MORE 08/04/2017 99473-QEAGSJG NAIL, 6 OR MORE 05/12/2017 18326-BPRXRMZ NAIL, 6 OR MORE 02/18/2024 81068-YVISBUN NAIL, 6 OR MORE 2018 42806-ORSEKKW NAIL, 6 OR MORE 03/10/2017 63899-LOPYQSX NAIL, 6 OR MORE 01/06/2017 66654-DZHTMXG NAIL, 6 OR MORE 10/23/2016 67272-VVYKAEC NAIL, 6 OR MORE 07/25/2016 40497-RSJUIVZ NAIL, 6 OR MORE 05/10/2016 86757-WXIBAVQ NAIL, 6 OR MORE 02/14/2016 64443-ARSBFZQ NAIL, 6 OR MORE 11/20/2015 11740-ORQQBRC NAIL, 6 OR MORE 07/05/2015 60563-Pgujfgsc Plate 07/27/2015 94448-Jtiuwsya Plate 05/29/2016 98582-Euhxvkoz Plate 06/10/2016 41310- Debride <25 sq cm 06/10/2016 93820- Debride <25 sq cm 09/25/2016 47857- Debride <25 sq cm 10/23/2016 55105- Debride <25 sq cm 08/14/2015 26367-XEXH SKIN LESIONS, OVER 4 07/05/19 16 11326-MARB SKIN LESIONS, OVER 4 11/20/19 16 19242-PWLH SKIN LESIONS, OVER 4 02/14/20 16 14571-AHHA SKIN LESIONS, OVER 4 05/11/19 17 75926-JJBE SKIN LESIONS, OVER 4 10/24/19 17 11048-JXYX SKIN LESIONS, OVER 4 01/07/20 17 80808-WJOP SKIN LESIONS, OVER 4 05/13/19 18 86437-BAXR SKIN LESIONS, OVER 4 03/10/19 18 70267-GTDJ SKIN LESIONS, OVER 4 02/13/20 21 57731-KSVD SKIN LESIONS, OVER 4 05/15/19 22 34592-MEJL SKIN LESIONS, OVER 4 02/18/20 24 64929-XJJU SKIN LESIONS, OVER 4 08/05/19 18 66429-HCTC SKIN LESIONS, OVER 4 01/13/20 18 90854-FBBK SKIN LESIONS, OVER 4 10/28/19 18 82569-BLMT SKIN LESIONS, OVER 4 04/13/19 19 91309-UQND SKIN LESIONS, OVER 4 07/14/19 19 51758-YGGX SKIN LESIONS, OVER 4 10/13/19 19 19008-KFXF SKIN LESIONS, OVER 4 01/12/20 19 04849-WAEJ SKIN LESIONS, OVER 4 04/12/19 20 78308-GJSZ SKIN LESIONS, OVER 4 07/14/19 20 29830-QVMM SKIN LESIONS, OVER 4 10/18/19 20 14470-SBBZ SKIN LESIONS, OVER 4 01/17/20 20 10643-TYHL SKIN LESIONS, OVER 4 04/24/19 21 65060-GSCO SKIN LESIONS, OVER 4 07/25/19 21 40583-VHMA SKIN LESIONS, OVER 4 11/21/19 21 53414-XFBT SKIN LESIONS, 2 TO 4 07/26/19 17 72036, U0342-WXTCU/INJECT, JOINT/BURSA 0 04/13/2018 19199, J0702- Neuroma/Injection 11/20/19 16 62470-Lhalrpxmr, Toes 05/10/2016 84601-Lyjaofiob, Toes 05/15/2016 12883-Rvfbkhwjs, Toes 03/12/2023 Next Appt Details Provider Name:Melina Muñoz trenton, 06/24/2024 09:00:00 AM, [address] [place], [address], Insurance Providers Payer Name Payer Address Payer Phone Subscriber Number Group Number Insured Name Patient Relationship to Insured Coverage Start Date Coverage End Date Medicare [employer] [address] [place] [address] [id number] Lynda Leslie Self - patient is the insured [facility] [address] [place] [address] [phone] [id number] Shayan Leslie Spouse - patient is [...] B12 deficiency Surgical History Surgery Date(Month/Year) appendectomy 195 eptopic 1969 hernia 1982 knee surgery, left - 10 surgeries knee [...] checked out- couldn't walk [facility] [facility] [place] [facility]x [facility] blood clot / c.diff 03/2020 [facility]- pancolitis 02/13/19 [facility] X 3 Days, Pt sstates she fell, dx: c oncusion 05/18/2017
[2024-03-10 09:58] LABS: MANUAL DIFF FLAG NO
[2024-03-10 10:04] LABS: Basophils Absolute Auto 0.1 X10*3/uL (0.0-0.2); Basophils Percent Auto 0.5 % (0-2); Eosinophils Absolute Auto 0.3 X10*3/uL (0.0-0.4); Eosinophils Percent Auto 2.7 % (0-4); Hematocrit 35.2 % (37.0-47.0); Hemoglobin 11.5 g/dl (12.0-16.0); Imm Gran Abs Auto 0.03 X10*3/uL (0.00-0.03); Imm Gran Pct Auto 0.3 % (0.0-0.4); Lymphocytes Absolute Auto 2.5 X10*3/uL (1.2-4.9); Lymphocytes Percent Auto 24.3 % (20-40); Mean Corpuscular HGB Conc 32.7 g/dl (31.0-35.0); Mean Corpuscular Hemoglobin 29.7 pg (27.0-33.0); Mean Platelet Volume 10.6 fL (9.4-12.3); Monocytes Absolute Auto 0.9 X10*3/uL (0.1-1.2); Neutrophils Absolute Auto 6.4 x10*3/uL (2.0-8.3); Neutrophils Percent Auto 63.2 % (45-73); Platelet Count 240 X10*3/uL (160-400); Red Blood Count 3.87 X10*6/uL (4.20-5.50); White Blood Count 10.2 X10*3/uL (4.8-10.8)
== END 2024-03-10 08:56 | disposition home or self-care (01) ==
LOC: HO.HMGCLDS 08:55
PROVIDERS: PCP Internal Medicine; Visit Provider Internal Medicine
DX: D64.9 Anemia, unspecified (principal)
CPT/HCPCS: 36415; 85025

== ENCOUNTER 2024-03-11 09:45 | Outpatient (AMB) | payer MEDICARE, OTHER, SELFPAY ==
[2024-03-11 09:47] VITALS: BP 110/66; PULSE 67; O2SAT 97; BMI 21.5
--- NOTE | 2024-03-11 09:47 | A.OFFPC_ITS ---
Vital Signs 03/11/24 09:47 Height 5 ft Weight 110 lb BMI 21.5 BP 110/66 Blood Pressure Location Lt brachial Position Sitting Pulse 67 Pulse Source Pulse Oximeter Pulse Oximetry (%) 97 Oxygen Delivery Method Room Air Intake Visit Reasons: 3 months follow up Intake Note: Pt is here today for 3 months follow up visit. Allergies cephalexin [CEPHALEXIN] Allergy (Severe, Verified 03/11/24 09:48) ANAPHYLAXIS nitrofurantoin [From MACRODANTIN] Allergy (Severe, Verified 03/11/24 09:48) ANAPHYLAXIS albuterol [ALBUTEROL] Allergy (Intermediate, Verified 03/11/24 09:48) ITCHING Sulfa (Sulfonamide Antibiotics) [SULFA (SULFONAMIDE ANTIBIOTICS)] Allergy (Intermediate, Verified 03/11/24 09:48) ITCHING acetaminophen [Percocet] Allergy (Unknown, Verified 03/11/24 09:48) itchy amoxicillin Allergy (Unknown, Verified 03/11/24 09:48) itchy and diarrhea doxycycline Allergy (Unknown, Verified 03/11/24 09:48) itchy gluten [GLUTEN] Allergy (Unknown, Verified 03/11/24 09:48) Ciliac disease indomethacin [Indocin] Allergy (Unknown, Verified 03/11/24 09:48) n/a lactose Allergy (Unknown, Verified 03/11/24 09:48) severe diarrhea latex Allergy (Unknown, Verified 03/11/24 09:48) itchy rash oxycodone [Percocet] Allergy (Unknown, Verified 03/11/24 09:48) itchy olmesartan Adverse Reaction (Intermediate, Verified 03/11/24 09:48) diarrhea DAIRY PRODUCTS Allergy (Unknown, Uncoded 03/11/24 09:48) severe diarrhea ventolin tabs Allergy (Unknown, Uncoded 03/11/24 09:48) Palpitations Medication List - Last Reconciled 03/11/24 by Jia Parmar MD amlodipine 5 mg PO BID apixaban (Eliquis) 5 mg PO BID blood sugar diagnostic As directed cyanocobalamin (vitamin B-12) 1,000 mcg IM Q4W gabapentin 200 mg (2 x 100 mg) PO TID hydralazine 10 mg PO BID hydromorphone 2 mg PO Q6H PRN insulin syringe-needle U-100 (BD Insulin Syringe) use for monthly injections lancets (Accu-Chek Fastclix Lancet Drum) Test blood sugar once a day latanoprost 0.005% 1 drp ophthalmic (eye) BEDTIME levothyroxine 50 mcg PO DAILY loperamide 2 mg PO BID PRN metoprolol succinate ER 50 mg PO BID omeprazole 40 mg PO BID rosuvastatin 5 mg PO DAILY sertraline 25 mg PO DAILY spironolactone 12.5 mg (1/2 x 25 mg) PO DAILY syringe with needle As directed syringe with needle, safety Use to inject B12 monthly timolol maleate 0.5% 1 drp ophthalmic (eye) QAM trazodone 50 mg PO BEDTIME vancomycin 125 mg PO BID Tobacco use date assessed: 03/11/24 Fall risk assessment: No Falls in past year Last assessed Fall Risk: 03/11/24 Dental Screening Dental Screen Date: 03/11/24 Did you have a dental visit in the last 12 months?: Yes Did you have a dental problem in the last 6 months where you did not have access to dental care?: No Was dental information given to patient?: Patient has dentist HPI 3 months follow up HPI Details Pt presents for f/u HTN, CKD 3, hypothyroid, stable on meds. Patient had lumbar spine surgery and complains of persistent lower back pain and can not bend forward. She is scheduled to see pain management. Patient denies weaknes s or numbness in extremities, change in bowel or bladder function. [facility] Medical History Hx of rheumatoid arthritis Hx of ectopic Back pain Arthritis Thyroid disease Diabetes Peptic ulcer Fatty liver Asthma On anticoagulant therapy DVT (deep venous thrombosis) Pulmonary embolism Osteopenia Minor skin laceration Annual physical exam Vitamin B 12 deficiency Vitamin D deficiency Chronic infection of knee joint prosthesis Diarrhea Knee pain Hypothyroidism Normal Pap smear Degenerative joint disease (DJD) of lumbar spine Microscopic colitis GERD (gastroesophageal reflux disease) Factor V deficiency Depression Colitis without complication Hyperglycemia Hyperlipidemia HTN (hypertension) Surgical History History of dental surgery History of release of tendon Hx of hammer toe correction History of bunionectomy of left great toe Hx of cholecystectomy H/O colonoscopy H/O cervical spine surgery History of lumbar surgery History of carpal tunnel syndrome History of knee replacement History of vagotomy History of total abdominal hysterectomy and bilateral salpingo-oophorectomy Family History Father Bladder cancer Mother Hypertension Social History Household Members: Spouse Housing: House Are you a primary lead care manager to a significant other at home: No Do you presently have visiting nurse or other home services: No Alcohol intake: never Patient Tobacco Use Status: Never used Tobacco e-Cigarette/Vaping Use: Never Used Second Hand Smoke Exposure: Yes service: No Current occupational status: retired Cognitive needs: No Hearing needs: No Vision needs: Yes Questionnaire PHQ-9 Over the last 2 weeks, how often have you been bothered by any of the following problems? 1. Little interest or pleasure in doing things: not at all 2. Feeling down, depressed, or hopeless: not at all 3. Trouble falling or staying asleep, or sleeping too much: not at all 4. Feeling tired or having little energy: not at all 5. Poor appetite or overeating: not at all 6. Feeling bad about yourself - or that you are a failure or have let yourself or your family down: not at all 7. Trouble concentrating on things, such as reading the newspaper or watching television: not at all 8. Moving or speaking so slowly that other people could have noticed. Or the opposite - being so fidgety or restless that you have been moving around a lot more than usual: not at all 9. Thoughts that you would be better off or of hurting yourself in some way: not at all Total score: 0 Depression Screening Interpretation: Negative Depression Screening Done: Yes 46709 - PHQ-9 Billing: Yes Source: Developed by Drs. Andrew Pompa, Tasha Barnard, Jonathan Minor and colleagues, with an educational farooq from [employer]. Thrive Questionnaire Date Thrive assessed: 03/11/24 I am a: Patient What is your living situation today?: I have a steady place to live Within the past 12 months, did the food you bought not last and you didn't have the money to get more?: Never true Within the past 12 months, did you worry whether your food would run out before you got money to buy more?: Never true Do you have trouble paying for medicines?: No Do you have trouble getting transportation to medical appointments?: No Do you have trouble paying your heating and electricity bill?: No Do you have trouble taking care of your child, family member or friend?: No Do you have trouble with day-to-day activities such as bathing, preparing meals, shopping, managing finances, etc.?: No Are you currently unemployed and looking for a job?: No Are you interested in more education?: No Please select the resources that you would like help with: None Currently or been in a relationship where the following occur: No concerns reported THRIVE Score: 0 AUDIT C Alcohol Use Questionnaire (AUDIT-C) 1. How often do you have a drink containing alcohol?: Never 2. How many drinks containing alcohol do you have on a typical day when you are drinking?: 1 or 2 3. How often do you have six or more drinks on one occasion?: Never Total Score: 0 ROSALINDA-7 AMB Questionnaire ROSALINDA-7 Date ROSALINDA - 7 assessed: 03/11/24 Feeling nervous, anxious, or on edge: 0 = Not at all Not being able to stop or control worryin = Not at all Worrying too much about different things: 0 = Not at all Trouble relaxin = Not at all Being so restless that it is hard to sit still: 0 = Not at all Becoming easily annoyed or irritable: 0 = Not at all Feeling afraid as if something awful might happen: 0 = Not at all Total ROSALINDA-7 score (0-4 normal; 5-9 mild; 10-14 moderate; 15-21 severe): 0 Source: Developed by Drs. Andrew Pompa, Tasha Barnard, Jonathan Minor and colleagues, with an educational farooq from [employer]. ROSALINDA-7 Assessment Billing ROSALINDA-7 Assessment Tool: ROSALINDA-7 Assessment 92742 Review of Systems Const All systems reviewed & are unremarkable except as noted in HPI and below Eyes Reports no additional complaints ENT Reports no additional complaints Card Reports no additional complaints Resp Reports no additional complaints GI Reports no additional complaints Reports no additional complaints Physical exam (Primary Care) Vital Signs: Last Vital Signs Pulse 67 03/11/24 09:47 BP 110/66 03/11/24 09:47 Pulse Ox 97 03/11/24 09:47 Oxygen Delivery Method Room Air 03/11/24 09:47 BMI result Body Mass Index 21.5 Tobacco/Smoking Status: Tobacco use Status Tobacco use date assessed 03/11/24 03/11/24 09:53 Patient Tobacco Use Status Never used Tobacco 03/11/24 09:53 e-Cigarette/Vaping Use Never Used 03/11/24 09:53 PHQ-9: PHQ-9 Score PHQ-9: Total score 0 03/11/24 09:53 Depression Screening Interpretation: Negative Thrive Assessment: Date of Thrive Assessment Date Thrive assessed 03/11/24 03/11/24 09:53 Currently or been in a relationship where the following occur: No concerns reported Const General: no acute distress HENMT Head: Yes normal to inspection Eyes General: appearance normal, both eyes and all related structures Neck Neck: Yes no lymphadenopathy and Yes supple Resp Effort & Inspection: normal respiratory effort Auscultation: clear to auscultation bilaterally Cardio Rhythm: regular rhythm Heart sounds: S1 normal heart sound present and S2 normal heart sound present GI Inspection: Yes normal to inspection Palpation (GI): Soft to palpation Percussion: Yes normal to percussion Auscultation: normal bowel sounds Coding Level of Care Code Est Pt Level 4 (59789) Complex EM visit Add On G2211 Diagnoses HTN (hypertension) I10 Hyperlipidemia E78.5 Hyperglycemia R73.9 Factor V deficiency D68.2 Chronic infection of knee joint prosthesis T84.59XA; Z96.659 Vitamin D deficiency E55.9 Vitamin B 12 deficiency E53.8 CKD (chronic kidney disease) stage 3, GFR 30-59 ml/min N18.30 Additional Codes ROSALINDA-7 Assessment Billing - ROSALINDA-7 Assessment Tool: ROSALINDA-7 Assessment 11706 ([id number]) PHQ-9 - 41130 - PHQ-9 Billing: Yes ([id number]) Assessment & Plan Assessment & Plan (1) HTN (hypertension): Code(s): I10 - Essential (primary) hypertension Category: Medical Plan: Continue current medications (2) Hyperlipidemia: Code(s): E78.5 - Hyperlipidemia, unspecified Category: Medical Plan: Continue statin (3) Hyperglycemia: Comment: Diet-controlled Code(s): R73.9 - Hyperglycemia, unspecified Category: Medical Plan: A1c is 5.4 continue ADA diet monitor A1c (4) Factor V deficiency: Comment: on Eliquis f/u Code(s): D68.2 - Hereditary deficiency of other clotting factors Category: Medical Plan: Continue Eliquis (5) Chronic infection of knee joint prosthesis: Comment: 03/2020, R knee on lifetime cefpodoxime Code(s): T84.59XA - Infection and inflammatory reaction due to other internal joint prosthesis, initial encounter; Z96.659 - Presence of unspecified artificial knee joint Category: Medical Plan: On lifetime antibiotic follow-up with orthopedic surgeon (6) Vitamin D deficiency: Code(s): E55.9 - Vitamin D deficiency, unspecified Category: Medical Plan: Continue vitamin-D supplement (7) Vitamin B 12 deficiency: Code(s): E53.8 - Deficiency of other specified B group vitamins Category: Medical Plan: Continue vitamin B12 injections (8) CKD (chronic kidney disease) stage 3, GFR 30-59 ml/min: Comment: Renal ultrasound 4 mm nonobstructive right kidney stone 07/2023 Code(s): N18.30 - Chronic kidney disease, stage 3 unspecified Category: Medical Plan: Avoid nephrotoxins monitor renal function Orders: Orders Comprehensive Holcomb. Panel Fast 4 Months D68.2 - Hereditary deficiency of other clotting factors, E53.8 - Deficiency of other specified B group vitamins, E55.9 - Vitamin D deficiency, unspecified, E78.5 - Hyperlipidemia, unspecified, I10 - Essential (primary) hypertension, N18.30 - Chronic kidney disease, stage 3 unspecified, R73.9 - Hyperglycemia, unspecified, T84.59XA - Infection and inflammatory reaction due to other internal joint prosthesis, initial encounter, Z96.659 - Presence of unspecified artificial knee joint Vitamin D 25-OH Total 4 Months D68.2 - Hereditary deficiency of other clotting factors, E53.8 - Deficiency of other specified B group vitamins, E55.9 - Vitamin D deficiency, unspecified, E78.5 - Hyperlipidemia, unspecified, I10 - Essential (primary) hypertension, N18.30 - Chronic kidney disease, stage 3 unspecified, R73.9 - Hyperglycemia, unspecified, T84.59XA - Infection and inflammatory reaction due to other internal joint prosthesis, initial encounter, Z96.659 - Presence of unspecified artificial knee joint Lipid Panel 4 Months D68.2 - Hereditary deficiency of other clotting factors, E53.8 - Deficiency of other specified B group vitamins, E55.9 - Vitamin D deficiency, unspecified, E78.5 - Hyperlipidemia, unspecified, I10 - Essential (primary) hypertension, N18.30 - Chronic kidney disease, stage 3 unspecified, R73.9 - Hyperglycemia, unspecified, T84.59XA - Infection and inflammatory reaction due to other internal joint prosthesis, initial encounter, Z96.659 - Presence of unspecified artificial knee joint Microalbumin, Random (w Creat) 4 Months D68.2 - Hereditary deficiency of other clotting factors, E53.8 - Deficiency of other specified B group vitamins, E55.9 - Vitamin D deficiency, unspecified, E78.5 - Hyperlipidemia, unspecified, I10 - Essential (primary) hypertension, N18.30 - Chronic kidney disease, stage 3 unspecified, R73.9 - Hyperglycemia, unspecified, T84.59XA - Infection and inflammatory reaction due to other internal joint prosthesis, initial encounter, Z96.659 - Presence of unspecified artificial knee joint Complete Blood Count Auto Diff 4 Months D68.2 - Hereditary deficiency of other clotting factors, E53.8 - Deficiency of other specified B group vitamins, E55.9 - Vitamin D deficiency, unspecified, E78.5 - Hyperlipidemia, unspecified, I10 - Essential (primary) hypertension, N18.30 - Chronic kidney disease, stage 3 unspecified, R73.9 - Hyperglycemia, unspecified, T84.59XA - Infection and inflammatory reaction due to other internal joint prosthesis, initial encounter, Z96.659 - Presence of unspecified artificial knee joint Vitamin B12 and Folate 4 Months D68.2 - Hereditary deficiency of other clotting factors, E53.8 - Deficiency of other specified B group vitamins, E55.9 - Vitamin D deficiency, unspecified, E78.5 - Hyperlipidemia, unspecified, I10 - Essential (primary) hypertension, N18.30 - Chronic kidney disease, stage 3 unspecified, R73.9 - Hyperglycemia, unspecified, T84.59XA - Infection and inflammatory reaction due to other internal joint prosthesis, initial encounter, Z96.659 - Presence of unspecified artificial knee joint Hemoglobin A1c 4 Months D68.2 - Hereditary deficiency of other clotting factors, E53.8 - Deficiency of other specified B group vitamins, E55.9 - Vitamin D deficiency, unspecified, E78.5 - Hyperlipidemia, unspecified, I10 - Essential (primary) hypertension, N18.30 - Chronic kidney disease, stage 3 unspecified, R73.9 - Hyperglycemia, unspecified, T84.59XA - Infection and inflammatory reaction due to other internal joint prosthesis, initial encounter, Z96.659 - Presence of unspecified artificial knee joint Medications: Changed From insulin syringe-needle U-100 (BD Insulin Syringe) use for monthly injections 12 ea 4RF To insulin syringe-needle U-100 use for monthly injections 12 ea 4RF Refilled amlodipine 5 mg PO BID 180 tabs 3RF levothyroxine 50 mcg PO DAILY 90 tabs 3RF rosuvastatin 5 mg PO DAILY 90 tabs 3RF cyanocobalamin (vitamin B-12) 1,000 mcg IM Q4W 10 mL 3RF E53.8 - Deficiency of other specified B group vitamins sertraline 25 mg PO DAILY 90 tabs 3RF spironolactone 12.5 mg (1/2 x 25 mg) PO DAILY 90 tabs 3RF trazodone 50 mg PO BEDTIME 90 tabs 2RF for insomnia hydralazine 10 mg PO BID 180 tabs 3RF metoprolol succinate ER 50 mg PO BID 180 tabs 3RF Discontinued syringe with needle, safety Discontinued Reason: Doctor's Order Use to inject B12 monthly 4 ea 3RF Resumed apixaban (Eliquis) 5 mg PO BID 180 tabs 3RF apixaban (Eliquis) 5 mg PO BID 180 tabs 3RF
--- OUTSIDE RECORDS SUMMARY | 2024-03-11 10:08 | XMS_ITS | Continuity of Care Document ---
Author Organization [place] - [facility], [facility] Address [address] [place] [address] Care Team Providers Care Psychological Aide Name Role Phone VENUSRENETTAJanaANN Primary Care Provider Assessment Encounter Date Assessment Date Assessment LastModified by Organization Details LastModified Time 12/29/2023 12/29/2023 Patient presents for evaluation of ears. Cerumen successfully removed bilaterally, which patient tolerated well. Otologic exam otherwise unremarkable. Patient reported hearing returned to baseline thereafter and declined audiometric testing. Return in 3-6 months for cerumen removal. Avoid Q-tips. Avoid or protect against loud noise. Recommend annual audiometric testing, sooner with perceived change. Patient understands to call sooner with any issues that arise. [email or web address] Not available 12/29/2023 13:44:59 Plan of Treatment Reminders Order Date Submit Date Provider Last Modified By Organization Details Last Modified Time Details Appointments Establish ed 15 2024 11:30A M SHANKAR RASMUSSEN PA-C Not available Not available Not available Lab None recorded. Referral None recorded. Procedures None recorded. Surgeries None recorded. Imaging None recorded. Medication Orders None recorded. Patient TargetsNo targets recorded. Patient InstructionsNo instructions recorded. Reason for Referral None Reported. Problems Name Problem SNOMED Code Status Onset Date Resolution Date Notes Provider Name and Address Organization Details Recorded Time Impacted cerumen 61554566 Active 2014 Impacted cerumen; Location: bilateral CMS Risk: low risk Cond ition: uncontrol led Not Available [facility] 02:40:33 Dizziness and giddiness 483604050 Active 2015 Dizziness and giddiness ; Note: Date Diagnosed : 12/05/2015 3:08 PM (R42) Not Available [facility] 4 02:40:24 Impacted cerumen in left ear [id number] 31487 Active 2022 Impacted cerumen, left ear; Note: Date Diagnosed : 04/16/2022 9:38 AM (H61.22) Not Available [facility] 4 02:40:31 Sensorine ural hearing loss of bilateral ears 724434729 Active 2015 Sensorine ural HL, bilateral ; Note: Date Diagnosed : 11/29/2014 12:59 PM (389.18) ; Start Date : 5 Sensori neural hearing loss, bilateral ; Location: bilateral Note: Date Diagnosed : 04/04/2015 10:39 AM (H90.3) Not Available [facility] 4 02:40:26 Impacted cerumen of bilateral ears 32021159230 12082 Active 2016 Impacted cerumen, bilateral ; Note: Date Diagnosed : 10/07/2016 10:53 AM (H61.23) Not Available [facility] 4 02:40:27 Difficult y speaking Active 2013 Hoarsenes s; CMS Risk: moderate risk CMS Treatment : new problem (to examiner) : no additiona l workup planned N ote: Date Diagnosed : 4 12:49 PM (784.49) Not Available [facility] 4 02:40:30 Impacted cerumen in right ear 70148639341 11159 Active 2020 Impacted cerumen, right ear; Note: Date Diagnosed : 09/27/2020 11:30 AM (H61.21) Not Available [facility] 4 02:40:23 Problem Notes None recorded. Procedures Surgical History Date Name Laterality Status Provider Name and Address Organization Details Recorded Time 4 Cerumen removal without microscope bilat austin MOSHER PA-C [address] [place] [address], [phone], [facility] - [facility] 12/29/2023 13:45:22 Imaging Results None recorded. Procedure Notes None recorded. Medical Equipment None Reported. Allergies Allergen ID Allergen Name Allergen Category Reaction Reaction Severity Criticality Documentation Date Start Date Code Code System Note Provider Name and Address Organization Details Recorded Time 19913 perfume environme nt other Not available Not available 07/15/2023 React ion: unkno wn, unspe cifie d;; Not Available [facility] 4 00:59:04 92419 wheat gluten extract food other Not available Not available 07/15/2023 64767 81 RxNorm React ion: unkno wn, unspe cifie d;; Not Available [facility] 4 00:59:04 37025 albuterol medicatio n other Not available Not available 07/15/2023 435 RxNorm React ion: unkno wn, unspe cifie d;; Not Available [facility] 4 00:59:05 24969 latex environme nt,medica tion other Not available Not available 07/15/2023 02992 91 RxNorm React ion: unkno wn, unspe cifie d;; Not Available [facility] 4 00:59:06 95040 indometha veronique medicatio n other Not available Not available 07/15/2023 5781 RxNorm React ion: unkno wn, unspe cifie d;; Not Available [facility] 4 00:59:07 62165 Medicinal product containin g penicilli n and acting as antibacte rial agent (product) medicatio n other Not available Not available 07/15/2023 44031 05 SNOMED React ion: unkno wn, unspe cifie d;; Not Available [facility] 4 00:59:09 25847 cephalexi n medicatio n other Not available Not available 07/15/2023 2231 RxNorm React ion: unkno wn, unspe cifie d;; Not Available [facility] 4 00:59:11 78727 Substance with sulfonami de structure and antibacte rial mechanism of action (substanc e) medicatio n other Not available Not available 07/15/2023 11209 8003 SNOMED React ion: unkno wn, unspe cifie d;; Not Available [facility] 4 00:59:13 Medications Name Sig Start Date Stop Date Status Note LastModified by Organization Details LastModified Time latanopro st 0.005 % eye drops INSTILL 1 DROP INTO BOTH EYES AT BEDTIME active Not Available Not Available No t Available hydralazi ne 10 mg tablet TAKE 1 TABLET BY MOUTH TWICE A DAY active Not Available Not Available No t Available diclofena c 3 % topical gel 2017 active Medicati on ID: [id number] D uration Value: 25 Brand Name: diclofen ac sodium S end Method: E-Prescr ibed Sub s Allowed: subs OK Medic ationGen ericName : diclofen ac sodium Not Available Not Available Not Available gabapenti n 600 mg tablet TAKE 1 TABLET BY MOUTH 3 TIMES A DAY active Not Available Not Available No t Available loperamid e 2 mg capsule TAKE 1 CAPSULE ORALLY 2 TIMES A DAY NEEDED FOR LOOSE STOOL active Not Available Not Available No t Available trazodone 50 mg tablet TAKE 1 TABLET BY MOUTH EVERY DAY BEDTIME FOR FOR INSOMNIA active Not Available Not Available No t Available cefpodoxi me 200 mg tablet TAKE 1 TABLET BY MOUTH EVERY DAY active Not Available Not Available No t Available metoprolo l succinate ER 50 mg tablet,ex tended release 24 hr 50 MG ORALLY 2 TIMES A DAY active Not Available Not Available No t Available meclizine 12.5 mg tablet 1 tablet by mouth 2015 active Medicati on ID: [id number] Isela abel d By Name: ANA [place] nd Name: meclizin e Send Method: E-Prescr ibed Sub s Allowed: subs OK Speci al Instruct ion: as needed for dizzines s Medica tionGene ricName: meclizin e Not Available Not Available Not Available amlodipin e 5 mg tablet TAKE 1 TABLET BY MOUTH TWICE A DAY active Not Available Not Available No t Available omeprazol e 40 mg capsule,d elayed release TAKE 1 TABLET BY MOUTH (40 MG) 2 TIMES A DAY active Not Available Not Available No t Available spironola ctone 25 mg tablet TAKE 1 TABLET BY MOUTH DAILY active Not Available Not Available No t Available vancomyci n 125 mg capsule TAKE 1 CAPSULE (125 MG TOTAL) BY MOUTH 2 (TWO) TIMES A DAY. active Not Available Not Available No t Available nortripty line 25 mg capsule 1 capsule by mouth 07/08 completed Medicati on ID: [id number] P rescribe d By Name: Sheryl Ochoa nd Name: lauro nguyễn Se nd Method: E-Prescr ibed Sub s Allowed: subs OK Speci al Instruct ion: At bedtime Medicati onGeneri cName: nortript yline Not Available Not Available Not Available hydromorp sera 2 mg tablet PLEASE SEE ATTACHED FOR DETAILED DIRECTIO NS active Not Available Not Available No t Available levothyro xine 50 mcg tablet TAKE 1 TABLET BY MOUTH DAILY active Not Available Not Available No t Available nortripty line 10 mg capsule 2017 active Medicati on ID: [id number] D uration Value: 30 Brand Name: lauro nguyễn Se nd Method: E-Prescr ibed Sub s Allowed: subs OK Medic ationGen ericName : nortript yline Not Available Not Available Not Available mirtazapi ne 30 mg tablet 2017 active Medicati on ID: [id number] D uration Value: 90 Brand Name: mirtazap ine Send Method: E-Prescr ibed Sub s Allowed: subs OK Medic ationGen ericName : mirtazap ine Not Available Not Available Not Available lidocaine 5 % topical patch 2013 active Medicati on ID: [id number] Dur ation Value: 30 Brand Name: lidocain e Send Method: E-Prescr ibed Sub s Allowed: subs OK Speci al Instruct ion: APPLY 1 PATCH TOPICALL Y BID Medi cationGe nericNam e: lidocain e Not Available Not Available Not Available gabapenti n 300 mg capsule 2017 active Medicati on ID: [id number] D uration Value: 10 Brand Name: gabapent in Send Method: E-Prescr ibed Sub s Allowed: subs OK Speci al Instruct ion: TK 1 C PO TID QHS FOR 10 DAYS Med icationG enericNa me: gabapent in Not Available Not Available Not Available sertralin e 25 mg tablet TAKE 1 TABLET BY MOUTH EVERY DAY active Not Available Not Available No t Available gabapenti n 100 mg capsule TAKE 2 CAPSULES BY MOUTH 3 TIMES A DAY active Not Available Not Available No t Available metoprolo l succinate ER 25 mg tablet,ex tended release 24 hr TAKE 2 TABLETS BY MOUTH ONCE DAILY active Not Available Not Available No t Available budesonid e DR - ER 3 mg capsule,d elayed,ex tended release 2017 active Medicati on ID: [id number] D uration Value: 30 Brand Name: rubin tian Send Method: E-Prescr ibed Sub s Allowed: subs OK Speci al Instruct ion: TK 2 CS PO QD Medic ationGen ericName : budesoni de Not Available Not Available Not Available timolol maleate 0.5 % eye drops INSTILL 1 DROP INTO BOTH EYES EVERY MORNING DIRECTED active Not Available Not Available No t Available ropinirol e 5 mg tablet 2017 active Medicati on ID: [id number] D uration Value: 90 Brand Name: ropiniro le Send Method: E-Prescr ibed Sub s Allowed: subs OK Speci al Instruct ion: TK 1 T PO QD Medic ationGen ericName : ropiniro le Not Available Not Available Not Available esomepraz ole magnesium 20 mg capsule,d elayed release 2017 active Medicati on ID: [id number] D uration Value: 90 Brand Name: esomepra zole magnesiu m Send Method: E-Prescr ibed Sub s Allowed: subs OK Medic ationGen ericName : esomepra zole magnesiu m Not Available Not Available Not Available olmesarta n 5 mg tablet TAKE 1 TABLET BY MOUTH EVERY DAY active Not Available Not Available No t Available alprazola m ER 1 mg tablet,ex tended release 24 hr 07/08 completed Medicati on ID: [id number] Dur ation Value: 30 Reason: () Brand Name: alprazol am Send Method: E-Prescr ibed Sub s Allowed: subs OK Speci al Instruct ion: TK 1 T PO QD Medic ationGen ericName : alprazol am Not Available Not Available Not Available rosuvasta tin 5 mg tablet GIVE 5 MG ORALLY DAILY active Not Available Not Available No t Available chlorhexi dine gluconate 0.12 % mouthwash 2017 active Medicati on ID: [id number] D uration Value: 28 Brand Name: chlorhex idine gluconat e Send Method: E-Prescr ibed Sub s Allowed: subs OK Medic ationGen ericName : chlorhex idine gluconat e Not Available Not Available Not Available Eliquis 5 mg tablet TAKE 1 TABLET BY MOUTH TWICE A DAY active Not Available Not Available No t Available Vitals Date Recorded Body height Body mass index (BMI) Body weight Provider Name and Address Organization Details Last Updated DateTime 12/29/2023 152.4 cm 22.5 kg/m2 41427.12 g Anusha Bunch MA [facility] 12/29/2023 13:25:38 Social History None recorded. Functional Status None recorded. Mental Status None recorded. Family History Nothing Reported. Medical History No medical history recorded. Gynecological HistoryNo gynecological history recorded. Obstetrics History GPAL:G 0 P 0 0 0 0 Past Encounters Encounter ID Performer Location Encounter Start Date Encounter Closed Date Diagnosis/Indication Diagnosis SNOMED-CT Code Diagnosis ICD10 Code Diagnosis Note [id number] RAQUEL LAWRENCE MD [facility] [address] [address] 12/29/2023 13:17:17 12/29/2023 13:45:24 Impacted cerumen of bilateral ears [id number] 925019 H61.23 Health Concerns Section Related Observation LastModified by Organization Detai ls LastModified Time None Recorded Concern Status LastModified by Organization Details LastModified Time None Recorded Payers Encounter Date Sequence Insurance Name Policy Number Policy Oscar Covered Member ID Oscar Member ID Guarantor Name 12/29/2023 2 [facility] INDEMNITY PLAN (MEDICARE SUPPLEMENT) [id number] Lynda Leslie [id number] Lynda Leslie 12/29/2023 1 [place] B[place] [facility] [employer] Lynda Leslie [id number] Lynda Leslie Notes Date Note Type Note Provider Name and Address Organization Details Recorded Time 12/29/2023 text/html 78-year-old female presents for evaluation of the ears. Denies change in hearing, otalgia, and otorrhea. No Q-tip use. RAQUEL LAWRENCE MD [address] [place] [address], [phone], [place] - [facility] 12/29/2023 17:02:11 OBGyn Episode No OBEpisode recorded.
--- OUTSIDE RECORDS SUMMARY | 2024-03-11 10:08 | XMS_ITS | Data Portability ---
Author Organization [place] - [facility], Allergy Address [address] [address] Care Team Providers Care Safety Instructor Name Role Phone ANN REGAN Primary Care Provider Assessment Encounter Date Assessment [...] Address Organization Details Recorded Time Impacted cerumen 14499956 Active 2014 Impacted cerumen; Location: bilateral CMS Risk: low risk Cond ition: uncontrol led Not Available [facility] 02:40:33 Dizziness and giddiness 273325989 Active 2015 Dizziness and giddiness ; Note: Date Diagnosed : 12/05/2015 3:08 PM (R42) Not Available [facility] 4 02:40:24 Impacted cerumen in left ear 43324176626 86676 Active 2022 Impacted cerumen, left ear; Note: Date Diagnosed : 04/16/2022 9:38 AM (H61.22) Not Available [facility] 4 02:40:31 Sensorine ural hearing loss of bilateral ears 918919559 Active 2015 Sensorine ural HL, bilateral ; Note: Date Diagnosed : 11/29/2014 12:59 PM (389.18) ; Start Date : 5 Sensori neural hearing loss, bilateral ; Location: bilateral Note: Date Diagnosed : 04/04/2015 10:39 AM (H90.3) Not Available [facility] 4 02:40:26 Impacted cerumen of bilateral ears 42819826368 22046 Active 2016 Impacted cerumen, bilateral ; Note: Date Diagnosed : 10/07/2016 10:53 AM (H61.23) Not Available [facility] 4 02:40:27 Difficult y speaking Active 2013 Hoarsenes s; CMS Risk: moderate risk CMS Treatment : new problem (to examiner) : no additiona l workup planned N ote: Date Diagnosed : 4 12:49 PM (784.49) Not Available [facility] 4 02:40:30 Impacted cerumen in right ear 14960209324 37155 Active 2020 Impacted cerumen, right ear; Note: Date Diagnosed : 09/27/2020 11:30 AM (H61.21) Not Available [facility] 4 02:40:23 Problem Notes None recorded. Procedures Surgical History Date Name Laterality Status Provider Name and Address Organization Details Recorded Time 4 Cerumen removal without microscope bilat austin MOSHER PA-C [address] [place] [address], [phone], [facility] - [facility] 12/29/2023 13:45:22 Imaging Results None recorded. Procedure Notes None recorded. Medical Equipment None Reported. Allergies Allergen ID Allergen Name Allergen Category Reaction Reaction Severity Criticality Documentation Date Start Date Code Code System Note Provider Name and Address Organization Details Recorded Time 81246 perfume environme nt other Not available Not available 07/15/2023 React ion: unkno wn, unspe cifie d;; Not Available [facility] 4 00:59:04 22035 wheat gluten extract food other Not available Not available 07/15/2023 75089 81 RxNorm React ion: unkno wn, unspe cifie d;; Not Available [facility] 4 00:59:04 03440 albuterol medicatio n other Not available Not available 07/15/2023 435 RxNorm React ion: unkno wn, unspe cifie d;; Not Available [facility] 4 00:59:05 18525 latex environme nt,medica tion other Not available Not available 07/15/2023 66105 91 RxNorm React ion: unkno wn, unspe cifie d;; Not Available [facility] 4 00:59:06 90747 indometha veronique medicatio n other Not available Not available 07/15/2023 5781 RxNorm React ion: unkno wn, unspe cifie d;; Not Available [facility] 4 00:59:07 44196 Medicinal product containin g penicilli n and acting as antibacte rial agent (product) medicatio n other Not available Not available 07/15/2023 04692 05 SNOMED React ion: unkno wn, unspe cifie d;; Not Available [facility] 4 00:59:09 32357 cephalexi n medicatio n other Not available Not available 07/15/2023 2231 RxNorm React ion: unkno wn, unspe cifie d;; Not Available [facility] 4 00:59:11 85341 Substance with sulfonami de structure and antibacte rial mechanism of action (substanc e) medicatio n other Not available Not available 07/15/2023 45654 8003 SNOMED React ion: unkno wn, unspe cifie d;; Not Available [facility] 4 00:59:13 Medications Name Sig Start Date [...] topical gel 2017 active Medicati on ID: [id number] D uration Value: 25 Brand Name: diclofen [...] by mouth 2015 active Medicati on ID: [id number] Isela abel d By Name: ANA [place] [...] by mouth 07/08 completed Medicati on ID: [id number] P rescribe d By Name: Aida De Dios M.D. Bra nd Name: lauro keenine Se nd Method: E-Prescr ibed Sub s [...] mg capsule 2017 active Medicati on ID: [id number] D uration Value: 30 Brand Name: nortript osmaniine Se nd Method: E-Prescr ibed Sub s Allowed: subs OK Medic ationGen ericName : nortript yline Not Available Not Available Not Available mirtazapi ne 30 mg tablet 2017 active Medicati on ID: [id number] D uration Value: 90 Brand Name: mirtazap [...] mg capsule 2017 active Medicati on ID: [id number] D uration Value: 10 Brand Name: gabapent [...] tended release 2017 active Medicati on ID: [id number] D uration Value: 30 Brand Name: rubin [...] mg tablet 2017 active Medicati on ID: [id number] D uration Value: 90 Brand Name: ropiniro le Send Method: E-Prescr ibed Sub s Allowed: subs OK Speci al Instruct ion: TK 1 T PO QD Medic ationGen ericName : ropiniro le Not Available Not Available Not Available esomepraz ole magnesium 20 mg capsule,d elayed release 2017 active Medicati on ID: [id number] D uration Value: 90 Brand Name: esomepra [...] % mouthwash 2017 active Medicati on ID: [id number] D uration Value: 28 Brand Name: chlorhex [...] Updated DateTime 12/29/2023 152.4 cm 22.5 kg/m2 89229.12 g Anusha Bunch [place] - [facility] 12/29/2023 13:25:38 Social History None recorded. Functional Status None recorded. Mental Status None recorded. Family History Nothing Reported. Medical History No medical history recorded. Gynecological HistoryNo gynecological history recorded. Obstetrics History GPAL:G 0 P 0 0 0 0 Past Encounters Encounter ID Performer Location Encounter Start Date Encounter Closed Date Diagnosis/Indication Diagnosis SNOMED-CT Code Diagnosis ICD10 Code Diagnosis Note [id number] RAQUEL LAWRENCE MD [facility] [address] [address] 12/29/2023 13:17:17 12/29/2023 13:45:24 Impacted cerumen of bilateral ears [id number] 908510 H61.23 Health Concerns Section Related Observation LastModified by Organization Detai ls LastModified Time None Recorded Concern Status LastModified by Organization Details LastModified Time None Recorded Advance Directives Directive None Recorded Payers Encounter Date Sequence Insurance Name Policy Number Policy Oscar Covered Member ID Oscar Member ID Guarantor Name 12/29/2023 2 [facility] INDEMNITY PLAN (MEDICARE SUPPLEMENT) [id number] Lynda Leslie [id number] Lynda Leslie 12/29/2023 1 MEDICARE B-[place]: [facility] Lyndaramila Leslie [id number] Lynda Apoorva Leslie Notes Date Note Type Note Provider Name and Address Organization Details Recorded Time 12/29/2023 text/html 78-year-old female presents for evaluation of the ears. Denies change in hearing, otalgia, and otorrhea. No Q-tip use. RAQUEL LAWRENCE MD [address] [place] [address], [phone], [facility] - [facility] 12/29/2023 17:02:11 OBGyn Episode No OBEpisode recorded.
--- OUTSIDE RECORDS SUMMARY | 2024-03-11 10:09 | XMS_ITS | Patient Health Record ---
Author Organization [facility] Address [address] [place] [address] Care Team Providers Care Recording Clerk Name Role Phone Jia Parmar MD Primary Care Provider UnavailMelina Acharya Unavailable [phone] Alexandre Williamson Unavailable [phone] Allergies Allergen (clinical drug ingredient) Drug/Non Drug [...] Polyneuropathy due to diabetes mellitus type I (230571669) 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 Problem Localized, primary osteoarthritis of the ankle and/or foot (362445670) Primary osteoarthritis, right ankle and foot (M19.071) Active confirmed Problem Localized, primary osteoarthritis of the ankle and/or foot (503567430) Primary osteoarthritis, left ankle and foot (M19.072) Active confirmed Problem Acquired hammer toe of right foot (5615549873832823) Other hammer toe(s) (acquired), right foot (M20.41) Active confirmed Problem Polyneuropathy due to type 2 diabetes mellitus (051412056) Type 2 diabetes mellitus with diabetic polyneuropathy (E11.42) Active confirmed Problem Primary gout (41341466) Idiopathic gout, right ankle and foot (M10.071) Active confirmed Problem Primary gout (65099977) Idiopathic gout, left ankle and foot (M10.072) Active confirmed Problem [id number] Atherosclerosi s of artery of both lower extremities (I70.203) Active confirmed Vital Signs Blood pressure diastolic 65 mm Hg 02/18/2024 Height 5 ft 0 in in 02/18/2024 Blood pressure systolic 120 mm Hg 02/18/2024 Weight 111 lbs 02/18/2024 BMI 21.68 kg/m2 02/18/2024 Procedures Procedure Date Ordered Date Performed Result Body Sit e 85666-Lypbefvpw, Toes 03/12/2023 N/A 70239-MFDABCW NAIL, 6 OR MORE 02/18/2024 N/A 22933-ZIQH SKIN LESIONS, OVER 4 02/18/2024 N/A Encounters Encounter Location Date [facility] [address] [place] [address] 03/12/2023 Alexandre Williamson Pain in right toe(s) M79.674 ; Other hammer toe(s) (acquired), right foot M20.41 ; Type 2 diabetes mellitus with diabetic polyneuropathy E11.42 ; Exostosis of right foot M89.8X7 ; Atherosclerosis of artery of both lower extremities I70.203 ; Tinea unguium B35.1 and Pain in left toe(s) M79.[address] [address] 05/29/2023 Alexandre Williamson Pain in right toe(s) M79.674 ; Other hammer toe(s) (acquired), right foot M20.41 ; Type 2 diabetes mellitus with diabetic polyneuropathy E11.42 ; Exostosis of right foot M89.8X7 ; Atherosclerosis of artery of both lower extremities I70.203 ; Tinea unguium B35.1 and Pain in left toe(s) M79.[address] [address] 08/21/2023 Alexandre Williamson Pain in right toe(s) M79.674 ; Other hammer toe(s) (acquired), right foot M20.41 ; Type 2 diabetes mellitus with diabetic polyneuropathy E11.42 ; Exostosis of right foot M89.8X7 ; Atherosclerosis of artery of both lower extremities I70.203 ; Tinea unguium B35.1 and Pain in left toe(s) M79.[address] [address] 11/13/2023 Alexandre Williamson Pain in right toe(s) M79.674 ; Other hammer toe(s) (acquired), right foot M20.41 ; Type 2 diabetes mellitus with diabetic polyneuropathy E11.42 ; Exostosis of right foot M89.8X7 ; Atherosclerosis of artery of both lower extremities I70.203 ; Tinea unguium B35.1 and Pain in left toe(s) M79.[address] [address] 02/18/2024 Melina Booth Type 2 diabetes mellitus [...] X ray : Foot, right 3V 08/04/2017 47351-ZJZQNYB NAIL, 6 OR MORE 10/27/2017 11077-ARDLKUQ NAIL, 6 OR MORE 08/04/2017 16323-ZHJGZPT NAIL, 6 OR MORE 05/12/2017 33974-UQASOCQ NAIL, 6 OR MORE 02/18/2024 56332-NSSDZJS NAIL, 6 OR MORE 2018 01974-ZISVGOF NAIL, 6 OR MORE 03/10/2017 95740-KRIPXCP NAIL, 6 OR MORE 01/06/2017 20881-JUTHNWN NAIL, 6 OR MORE 10/23/2016 12165-EYKXMFC NAIL, 6 OR MORE 07/25/2016 84840-HZWCFTK NAIL, 6 OR MORE 05/10/2016 62849-RVAEAOA NAIL, 6 OR MORE 02/14/2016 69252-HOXVHUQ NAIL, 6 OR MORE 11/20/2015 46006-ZLFYKUP NAIL, 6 OR MORE 07/05/2015 30679-Bsgabxxe Plate 07/27/2015 12511-Kcdzwdoh Plate 05/29/2016 49179-Zqfiepma Plate 06/10/2016 00305- Debride <25 sq cm 06/10/2016 35803- Debride <25 sq cm 09/25/2016 11094- Debride <25 sq cm 10/23/2016 46439- Debride <25 sq cm 08/14/2015 62716-YUDU SKIN LESIONS, OVER 4 07/05/19 16 11130-UHFC SKIN LESIONS, OVER 4 11/20/19 16 59299-SCWC SKIN LESIONS, OVER 4 02/14/20 16 18865-AKGV SKIN LESIONS, OVER 4 05/11/19 17 99962-IPWA SKIN LESIONS, OVER 4 10/24/19 17 56531-MODJ SKIN LESIONS, OVER 4 01/07/20 17 34810-SYVR SKIN LESIONS, OVER 4 05/13/19 18 24618-KJYA SKIN LESIONS, OVER 4 03/10/19 18 29148-KUXH SKIN LESIONS, OVER 4 02/13/20 21 00092-ICYJ SKIN LESIONS, OVER 4 05/15/19 22 71932-KSEZ SKIN LESIONS, OVER 4 02/18/20 24 54409-VQEU SKIN LESIONS, OVER 4 08/05/19 18 90781-NDXB SKIN LESIONS, OVER 4 01/13/20 18 98466-QMTA SKIN LESIONS, OVER 4 10/28/19 18 33854-NAXH SKIN LESIONS, OVER 4 04/13/19 19 66889-GIUF SKIN LESIONS, OVER 4 07/14/19 19 94991-DZOJ SKIN LESIONS, OVER 4 10/13/19 19 54800-EPED SKIN LESIONS, OVER 4 01/12/20 19 47645-RCTI SKIN LESIONS, OVER 4 04/12/19 20 35493-FQFG SKIN LESIONS, OVER 4 07/14/19 20 72103-VEQZ SKIN LESIONS, OVER 4 10/18/19 20 26339-NVAC SKIN LESIONS, OVER 4 01/17/20 20 84853-RNJS SKIN LESIONS, OVER 4 04/24/19 21 72988-JFXE SKIN LESIONS, OVER 4 07/25/19 21 03460-YPYS SKIN LESIONS, OVER 4 11/21/19 21 19863-RYGI SKIN LESIONS, 2 TO 4 07/26/19 17 28095, Y3532-KUBDX/INJECT, JOINT/BURSA 0 04/13/2018 31457, J0702- Neuroma/Injection 11/20/19 16 53014-Zhrvmgzva, Toes 05/10/2016 83479-Cfbufwutd, Toes 05/15/2016 99015-Qotzwuvyw, Toes 03/12/2023 Next Appt Details Provider Name:Melina Muñoz trenton, 06/24/2024 09:00:00 AM, [address] [place], [address], Insurance Providers Payer Name Payer Address Payer Phone Subscriber Number Group Number Insured Name Patient Relationship to Insured Coverage Start Date Coverage End Date Medicare National [employer]t [employer] [address] [facility] [address] [id number] Lynda Leslie Self - patient is the insured [facility] [address] [place] [address] [id number] Shayan Leslie Spouse - patient is [...] out- couldn't walk [facility] [place] [facility] / c.diff 03/2020 [facility]- pancolitis 02/13/19 [facility] X 3 Days, Pt sstates she fell, dx: c oncusion 05/18/2017
--- OUTSIDE RECORDS SUMMARY | 2024-03-11 10:09 | XMS_ITS ---
Author Organization [facility] Address [address] [facility] [place] [address] Care Team Providers Care Manager International Name Role Phone Jia Parmar MD Primary Care Provider UnavailMelina Acharya Unavailable [phone] Alexandre Williamson Unavailable [phone] Allergies Allergen (clinical drug ingredient) Drug/Non Drug [...] 024 Encounters Encounter Location Date Provider Diagnosis [facility] [address] [place] [address] 08/21/2023 Alexandre Williamson Pain in right toe(s) [...] Reason: Provider Name:Melina chowdhury, 06/24/2024 09:00:00 AM, [address] [place] [address], [phone], Procedure Notes * Category Sub-Category Detail [...] as necessary. Patient chooses, no pharmaceutical tx (49775) Keratoma Treatment Parring or Cutting o f Benign Hyperkeratotic Lesion(s) 67406 ( >4 Lesions) - The Benign hyperkeratotic lesions, as described above were pared, and/or cut utilizing a sterile #15 blade, tissue nippers, and/or dremel Progress Notes * Lynda DRIVER DDOB:1945 ( 78 yo F)Acc No.[id number]:08/21/2023 Progress Note Patient:?Lynda Driver Provider:?Alexandre Williamson DPM :1945???Age:78 Y???Sex:Female D ate:08/21/2023 Address:[address] [place] [address] Saeed [id number] Pcp:Jia Parmar MD Subjective: * Chief Complaints: [...] housework, gardening. ?Marital status: . 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 * Medications:?TakingSpironola ctone 25 MG Tablet 1 [...] as necessary. Patient chooses, no pharmaceutical tx (44139).?Keratoma Treatment:?Parring or Cutting of Benign Hyperkeratotic Lesion(s)?03570 ( >4 Lesions) - The Benign hyperkeratotic lesions, as described above were pared, and/or cut utilizing a sterile #15 blade, tissue nippers, and/or dremel.? * Procedure Codes:?92569 TRIM SKIN LESIONS, OVER 4, Modifiers: XS 72981 DEBRIDE NAIL, 6 OR MORE, Modifiers: XS * Follow Up:?3 Months, 2 Month s * Images: * Sign off status: Completed true * Provider:?Alexandre Williamson DPM Date:? 024 Generated for Anisha stephen/Jaspal/Noah on:?03/11/2024 10:09 AM EST History and Physical Notes * [...]
--- OUTSIDE RECORDS SUMMARY | 2024-03-11 10:09 | XMS_ITS ---
Author Organization [facility] Address [address] [facility] [place] [address] Care Team Providers Care Chief Resource Officer Name Role Phone Jia Parmar MD Primary Care Provider Melina Dunne Unavailable [phone] Allergies Allergen (clinical drug ingredient) Drug/Non Drug [...] Polyneuropathy due to diabetes mellitus type I (190748091) 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 Vital Signs Height 5 ft 0 in in 02/18/2024 Weight 111 lbs 02/18/2024 BMI 21.68 kg/m2 02/18/2024 Blood pressure systolic 120 mm Hg 02/18/20 24 Blood pressure diastolic 65 mm Hg 024 Procedures Procedure Date Ordered Date Performed Result Body Sit e 58104-DBGIWTE NAIL, 6 OR MORE 02/18/2024 N/A 25547-ZDJQ SKIN LESIONS, OVER 4 02/18/2024 N/A Encounters Encounter Location Date Provider Diagnosis [facility] [address] [address] 02/18/2024 Melina Booth Type 2 diabetes mellitus [...] days Pending Test Test Name Order Date 98607-BRDFBMO NAIL, 6 OR MORE 02/18/2024 29014-PPHR SKIN LESIONS, OVER 4 02/18/20 24 Next Appt Details Follow Up: 3 Months, Reason: Provider Name:Melina chowdhury, 06/24/2024 09:00:00 AM, [address] [place] [address], [address], Procedure Notes * Category Sub-Category Detail Notes [...] use of a nail nipper and/or dremel-type color grinder, to a more viable healthy nail plate [...] to maintain effectiveness in symptomatic relief - 72657 Keratoma Treatment Parring or Cutting o f [...] instrumentation by the physician of record - 90867 Progress Notes * Lynda LESLIE DDOB:1945 ( 79 yo F)Acc No.[id number]:02/18/2024 Progress Note Patient:?VILLA Lynda D Provider:?Melina Booth DPM :1945???Age:79 Y???Sex:Female D ate:02/18/2024 Address:[address] [place], [place] [address] Pcp:Jia Parmar MD Subjective: * Chief Complaints: [...] Days, Pt sstates she fell, dx: concusion 05/18/2017[facility]- pancolitis 02/13/19[place]ospital [place] /[facility] 5 days after sx back blood clot / c.diff 03/2020[facility]- Fall - police told her to [...] housework, gardening. ?Marital status: . 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 * Medications:?TakingSpironola ctone 25 MG Tablet 1 [...] use of a nail nipper and/or dremel-type color grinder, to a more viable healthy nail plate [...] to maintain effectiveness in symptomatic relief - 02510.?Keratoma Treatment:?Parring or Cutting of Benign Hyperkeratotic Lesion(s)?(-57) [...] instrumentation by the physician of record - 32835.? * Procedure Codes:?15926 DEBRI DE NAIL, 6 OR MORE, Modifiers: XS 76220 TRIM SKIN LESIONS, OVER 4, Modifiers: XS [...] Booth DPM Date:?04/20/2023 Generated for Anisha stephen/Jaspal/Deonitting on:?03/11/2024 10:08 AM EST History and Physical Notes * [...]
--- OUTSIDE RECORDS SUMMARY | 2024-03-11 10:09 | XMS_ITS ---
Author Organization [facility] Address [address] [facility] [place] [address] Care Team Providers Care Superintendent Renting Managing Name Role Phone Jia Parmar MD Primary Care Provider UnavailMelina Acharya Unavailable [phone] Alexandre Williamson Unavailable [phone] Allergies Allergen (clinical drug ingredient) Drug/Non Drug [...] 024 Encounters Encounter Location Date Provider Diagnosis [facility] [place] [address] [place] [address] 11/13/2023 Alexandre Williamson Pain in right toe(s) [...] Reason: Provider Name:Melina chowdhury, 06/24/2024 09:00:00 AM, [address] [place] [address], [phone], Procedure Notes * Category Sub-Category Detail [...] as necessary. Patient chooses, no pharmaceutical tx (01801) Keratoma Treatment Parring or Cutting o f Benign Hyperkeratotic Lesion(s) 09611 ( >4 Lesions) - The Benign hyperkeratotic lesions, as described above were pared, and/or cut utilizing a sterile #15 blade, tissue nippers, and/or dremel Progress Notes * Lynda DRIVER DDOB:1945 ( 78 yo F)Acc No.[id number]:11/13/2023 Progress Note Patient:?Lynda Driver Provider:?Alexandre Williamson DPM :1945???Age:78 Y???Sex:Female D ate:11/13/2023 Address:[address] [place] [address] Sae[id number] Pcp:Jia Parmar MD Subjective: * Chief Complaints: [...] housework, gardening. ?Marital status: . ?Occupation: retired- [employer]. * Medications:?TakinghydrALAZI NE HCl Spironolactone 25 MG [...] as necessary. Patient chooses, no pharmaceutical tx (38927).?Keratoma Treatment:?Parring or Cutting of Benign Hyperkeratotic Lesion(s)?58576 ( >4 Lesions) - The Benign hyperkeratotic lesions, as described above were pared, and/or cut utilizing a sterile #15 blade, tissue nippers, and/or dremel.? * Procedure Codes:?68742 TRIM SKIN LESIONS, OVER 4, Modifiers: XS 86370 DEBRIDE NAIL, 6 OR MORE, Modifiers: XS * Follow Up:?3 Months, 2 Month s * Images: * Sign off status: Completed true * Provider:?Alexandre Williamson DPM Date:? 024 Generated for Sheai zafar/Tomaszg/eTransmitting on:?03/11/2024 10:08 AM EST History and Physical [...]
== END 2024-03-11 10:29 | disposition home or self-care (01) ==
PROVIDERS: PCP Internal Medicine; Visit Provider Internal Medicine
DX: I12.9 Hypertensive chronic kidney disease with stage 1 through stage 4 chronic kidney disease, or unspecified chronic kidney disease (principal); N18.30 Chronic kidney disease, stage 3 unspecified; D68.2 Hereditary deficiency of other clotting factors; T84.59XA Infection and inflammatory reaction due to other internal joint prosthesis, initial encounter; E78.5 Hyperlipidemia, unspecified; R73.9 Hyperglycemia, unspecified; Z96.659 Presence of unspecified artificial knee joint; E55.9 Vitamin D deficiency, unspecified; E53.8 Deficiency of other specified B group vitamins

== ENCOUNTER → 2024-03-11 09:45 | Outpatient (BNVA) | payer MEDICARE, OTHER, SELFPAY | PROVIDERS: PCP Internal Medicine; Visit Provider Internal Medicine | DX: I10 Essential (primary) hypertension (principal); E78.5 Hyperlipidemia, unspecified; R73.9 Hyperglycemia, unspecified; D68.2 Hereditary deficiency of other clotting factors; E55.9 Vitamin D deficiency, unspecified; E53.8 Deficiency of other specified B group vitamins; N18.30 Chronic kidney disease, stage 3 unspecified; T84.59XA Infection and inflammatory reaction due to other internal joint prosthesis, initial encounter | CPT/HCPCS: 96127; 99212 ==

== ENCOUNTER 2024-05-14 13:40 | Outpatient (AMB) | payer MEDICARE, OTHER, SELFPAY ==
--- NOTE | 2024-05-14 13:45 | A.SPINEOV_ITS ---
Intake Visit Reasons: back pain Intake Note: Mrs. Leslie is here today c/o back pain. Credit Risk Analyst Required: No Allergies cephalexin [CEPHALEXIN] Allergy (Severe, Verified 05/14/24 13:46) ANAPHYLAXIS nitrofurantoin [From MACRODANTIN] Allergy (Severe, Verified 05/14/24 13:46) ANAPHYLAXIS albuterol [ALBUTEROL] Allergy (Intermediate, Verified 05/14/24 13:46) ITCHING Sulfa (Sulfonamide Antibiotics) [SULFA (SULFONAMIDE ANTIBIOTICS)] Allergy (Intermediate, Verified 05/14/24 13:46) ITCHING acetaminophen [Percocet] Allergy (Unknown, Verified 05/14/24 13:46) itchy amoxicillin Allergy (Unknown, Verified 05/14/24 13:46) itchy and diarrhea doxycycline Allergy (Unknown, Verified 05/14/24 13:46) itchy gluten [GLUTEN] Allergy (Unknown, Verified 05/14/24 13:46) Ciliac disease indomethacin [Indocin] Allergy (Unknown, Verified 05/14/24 13:46) n/a lactose Allergy (Unknown, Verified 05/14/24 13:46) severe diarrhea latex Allergy (Unknown, Verified 05/14/24 13:46) itchy rash oxycodone [Percocet] Allergy (Unknown, Verified 05/14/24 13:46) itchy olmesartan Adverse Reaction (Intermediate, Verified 05/14/24 13:46) diarrhea DAIRY PRODUCTS Allergy (Unknown, Uncoded 03/11/24 09:48) severe diarrhea ventolin tabs Allergy (Unknown, Uncoded 03/11/24 09:48) Palpitations Assessment & Plan Assessment & Plan (1) Failed back syndrome: Code(s): M96.1 - Postlaminectomy syndrome, not elsewhere classified Category: Medical Plan Mrs Leslie came back today for a follow up. Dr. Campos saw her, performed an injection on the SI joint, but unfortunately it did not help. A new MRI was ordered at [place], Dr. Ramirez and I reviewed this, there is some stenosis above her fusion at the L2-3 segment, but not enough to be surgical. Her main complaint is low back pain anyway, which typically isn't part of the presentation of stenosis. Her fusion segments look fine. He reviewed all the hardware and instrumentation and there is no signs of lucency or pseudoarthrosis on the CT done at [facility]. Her pain is primarily located in the lower lumbar sacral area and is only there when she is bending. This is the exact same pain she had before her fusion at L3-4. Her L5-S1 disc looks excellent. Unfortunately we do not think anymore surgery will help her. At this point it to matter of trying to find the right thing that can control her pain best but more surgery is not in the cards. Total amount of time spent in this visit was 20 minutes in discussion of symptoms, lumbar CT and MRI imaging results and subsequent plan of care Emir Ramirez MD,PhD [facility] Coding Level of Care Code Est Pt Level 3 (82791) Diagnoses Failed back syndrome M96.1
--- OUTSIDE RECORDS SUMMARY | 2024-05-14 15:15 | XMS_ITS | Data Portability ---
Author Organization [place] - [facility], Allergy Address [address] [address] Assessment Encounter Date Assessment Date Assessment LastModified by Organization Details LastModified Time 11/11/2023 11/11/2023 Reviewed with patient the options available for the latest amplification devices, the differences between makes/models of devices, and the importance of selecting the best make/model for their lifestyle and audiometric needs. Discussed the importance of optimizing the ability to perceive and understand speech by analyzing the output of devices using speech mapping as part of our real-ear verification procedure. The patient's concerns about using hearing devices were discussed. Taking into consideration the patient's lifestyle, personal preferences, severity of hearing loss & hearing handicap, a fitting of Phonak zadpmivm-bp-ogw- canal hearing devices is expected to provide a significant improvement in the patient's ability to communicate. In addition to amplification, additional accommodations should be considered, such as closed captioning on the television or at movie theaters, strategically positioning ones' self closer to the listener, remote microphone technology, Bluetooth technology, and considering reducing noise & reverberation at home. Patient to order devices through [employer] and will be fitted at [facility], in our [place] office. Follow up for an orientation fitting at patient's convenience. [email or web address] Not available 11/11/2023 13:57:52 11/20/2023 11/20/2023 Complete occlusion of all 4 microphone inlets and jet mechanic sound bore. Resolution: In-office cleaning. Patient to warehouse picker device(s) at their convenience. [email or web address] Not available 11/20/2023 10:39:02 11/25/2023 11/25/2023 The device was programmed wirelessly using the tub attendant's software in [facility]. We reviewed using real-ear verification and adjusting the settings to best match the patient's hearing needs in order to obtain the best outcome. Given that the patient is a previous user, real-ear verification was performed and the gain was adjusted to maximize the patient's ability to hear speech and a comfortable listening level. The patient's concerns about using the devices were discussed. We reviewed the device options and what accessories are included. Reviewed features such as bluetooth, adjusting the volume control, and the use of a multimemory button for additional programs. Changing the wax filter was reviewed. At the end of the visit, the patient practiced insertion/remova l and reported no pain or discomfort. Follow up regarding the right hearing aidon an as-needed basis as patient reports satisfaction with hearing and will return with any concerns. The left device has been sent to [employer] for in-warranty repair; the button cannot be pressed due to debris under the button. [email or web address] Not available 11/27/2023 11:42:48 12/29/2023 12/29/2023 Patient presents for evaluation of [...] issues that arise. [email or web address] Not available 12/29/2023 13:43:40 04/27/2024 04/27/2024 79-year-old male presents for cerumen removal. Cerumen removed bilaterally. Follow-up in 6 months. [email or web address] Not available 04/27/2024 11:01:00 Plan of Treatment Reminders Order Date Submit Date Provider Last Modified By Organization Details Last Modified Time Details Appointments Establish ed 15 2024 11:15A Sergio RASMUSSEN PA-C Not available Not available Not available Lab None recorded. Referral None recorded. Procedures None recorded. Surgeries None recorded. Imaging None recorded. Medication Orders None recorded. Patient TargetsNo targets recorded. Patient InstructionsNo instructions recorded. Reason for Referral None Reported. Results Created Date Observation Date Name Description Value Unit Range Abnormal Flag Note LastModifiedBy Organization Detail LastModifiedTime 10/21/19 24 03/07/2020 imagi ng/di agnos tic resul t No observ ation record ed. [email or web address] Not Available 15:22:56 10/21/19 24 04/09/2022 imagi ng/di agnos tic resul t No observ ation record ed. [email or web address] Not Available 15:23:03 10/21/19 24 04/09/2022 imagi ng/di agnos tic resul t No observ ation record ed. [email or web address] Not Available 15:23:04 10/21/19 24 08/02/2022 imagi ng/di agnos tic resul t No observ ation record ed. [email or web address] Not Available 15:23:10 10/21/19 24 08/05/2022 imagi ng/di agnos tic resul t No observ ation record ed. [email or web address] Not Available 15:23:12 10/21/19 24 08/05/2022 imagi ng/di agnos tic resul t No observ ation record ed. [email or web address] Not Available 15:23:17 10/21/19 24 08/05/2022 imagi ng/di agnos tic resul t No observ ation record ed. [email or web address] Not Available 15:23:18 10/21/19 24 08/15/2021 imagi ng/di agnos tic resul t No observ ation record ed. [email or web address] Not Available 15:23:19 10/21/19 24 12/05/2022 imagi ng/di agnos tic resul t No observ ation record ed. [email or web address] Not Available 15:23:22 10/21/19 24 01/22/2023 imagi ng/di agnos tic resul t No observ ation record ed. [email or web address] Not Available 15:23:25 10/21/19 24 01/22/2023 imagi ng/di agnos tic resul t No observ ation record ed. [email or web address] Not Available 15:23:27 10/21/19 24 03/02/2020 imagi ng/di agnos tic resul t No observ ation record ed. [email or web address] Not Available 15:23:32 10/21/19 24 03/07/2020 audio gram No observ ation record ed. [email or web address] Not Available 15:23:42 10/21/19 24 03/19/2023 audio gram No observ ation record ed. [email or web address] Not Available 15:23:48 10/21/19 24 01/22/2023 audio gram No observ ation record ed. [email or web address] Not Available 15:24:19 10/21/19 24 02/12/2023 audio gram No observ ation record ed. [email or web address] Not Available 15:24:24 Result Notes None recorded. Problems Name Problem SNOMED Code Status Onset Date Resolution Date Notes Provider Name and Address Organization Details Recorded Time Gastroeso phageal reflux disease without esophagit is 900966041 Active 2021 Gastro-es ophageal reflux disease without esophagit is; Note: Date Diagnosed : 07/23/2021 11:19 AM (K21.9) Not Available [facility] 4 02:40:29 Localized swelling of head 27616187846 732422 Active 2021 Localized swelling, mass and lump, head; Note: Date Diagnosed : 07/23/2021 11:19 AM (R22.0) Not Available [facility] 4 02:40:25 Sensorine ural hearing loss of bilateral ears 197401590 Active 2014 Sensorine ural HL, bilateral ; Note: Date Diagnosed : 11/29/2014 3:31 PM (389.18) Hearing loss: Sensorine ural hearing loss, bilateral ; Note: Date Diagnosed : 12/08/2013 4:19 PM (389.18) ; Start Date : 4 Sensori neural hearing loss, bilateral ; Note: Date Diagnosed : 11/29/2014 3:31 PM (H90.3) Not Available [facility] 4 02:40:23 Impacted cerumen in left ear 34899542035 13828 Active 2018 Impacted cerumen, left ear; Note: Date Diagnosed : 9 9:31 AM (H61.22) Impacte d cerumen, left ear; Note: Date Diagnosed : 07/08/2017 10:20 AM (H61.22) ; Start Date : 8 Not Available [facility] 4 02:40:37 Impacted cerumen 64741131 Active 2014 Impacted cerumen; Location: bilateral CMS Risk: low risk Cond ition: uncontrol led Not Available [facility] 4 02:40:36 Impacted cerumen of bilateral ears 59380047511 73246 Active 2020 Impacted cerumen, bilateral ; Note: Date Diagnosed : 1 10:28 AM (H61.23) Impacte d cerumen, bilateral ; Note: Date Diagnosed : 03/26/2016 10:29 AM (H61.23) ; Start Date : 7 Not Available [facility] 4 02:40:22 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 Procedures Surgical History Date Name Laterality Status Provider Name and Address Organization Details Recorded Time Cerumen removal without microscope bilat completed SHANKAR RASMUSSEN PA-C [address], [place], [address], [facility] 04/27/2024 11:00:46 Cerumen removal without microscope bilat completed JOSE MOSHER PA-C [address], [place], [address], [facility] - [facility] 12/29/2023 13:43:26 Imaging Results Imaging Date Name Status [facility]Modified by [facility] Details LastModified Time 03/07/2020 imaging/diagno stic result completed Information not available 10/21/2023 15:22:56 04/09/2022 imaging/diagno stic result completed Information not available 10/21/2023 15:23:03 04/09/2022 imaging/diagno stic result completed Information not available 10/21/2023 15:23:04 08/02/2022 imaging/diagno stic result completed Information not available 10/21/2023 15:23:10 08/05/2022 imaging/diagno stic result completed Information not available 10/21/2023 15:23:12 08/05/2022 imaging/diagno stic result completed Information not available 10/21/2023 15:23:17 08/05/2022 imaging/diagno stic result completed Information not available 10/21/2023 15:23:18 08/15/2021 imaging/diagno stic result completed Information not available 10/21/2023 15:23:19 12/05/2022 imaging/diagno stic result completed Information not available 10/21/2023 15:23:22 01/22/2023 imaging/diagno stic result completed Information not available 10/21/2023 15:23:25 01/22/2023 imaging/diagno stic result completed Information not available 10/21/2023 15:23:27 03/02/2020 imaging/diagno stic result completed Information not available 10/21/2023 15:23:32 03/07/2020 audiogram completed Information not available 10/21/2023 15:23:42 03/19/2023 audiogram completed Information not available 10/21/2023 15:23:48 01/22/2023 audiogram completed Information not available 10/21/2023 15:24:19 02/12/2023 audiogram completed Information not available 10/21/2023 15:24:24 Procedure Notes None recorded. Medical Equipment None Reported. Allergies Allergen ID Allergen Name Allergen Category Reaction Reaction Severity Criticality Documentation Date Start Date Code Code System Note Provider Name and Address Organization Details Recorded Time 37019 cephalexi n medicatio n other Not available Not available 07/15/2023 2231 RxNorm React ion: unkno wn, unspe cifie d;; Not Available [facility] 4 00:59:08 98988 morphine medicatio n other Not available Not available 07/15/2023 7052 RxNorm React ion: unkno wn, unspe cifie d;; Not Available [facility] 4 00:59:12 Medications Name Sig Start Date Stop Date Status Note LastModified by Organization Details LastModified Time albuterol sulfate 0.63 mg/3 mL solution for nebulizat ion INHALE 0.63 MG (3 ML) INHALED 4 TIMES A DAY NEEDED FOR SHORTNES S OF BREATH OR WHEEZING active Not Available Not Available No t Available ropinirol e 1 mg tablet TAKE 2 TABLETS (2 MG) ORALLY DAILY active Not Available Not Available No t Available amlodipin e 5 mg tablet TAKE 1 TABLET BY MOUTH TWICE A DAY active Not Available Not Available No t Available allopurin ol 100 mg tablet TAKE 1 TABLET BY MOUTH EVERY DAY active Not Available Not Available No t Available amlodipin e 10 mg tablet 01/16 completed Medicati on ID: [id number] Du ration Value: 30 Brand Name: amlodipi ne Send Method: E-Prescr ibed Sub s Allowed: subs OK Medic ationGen ericName : amlodipi ne Not Available Not Available Not Available buspirone 10 mg tablet TAKE 1 TABLET BY MOUTH TWICE A DAY active Not Available Not Available No t Available Advair Diskus 250 mcg-50 mcg/dose powder for inhalatio n 01/16 completed Medicati on ID: [id number] Du ration Value: 30 Brand Name: Advair Diskus S end Method: E-Prescr ibed Sub s Allowed: subs OK Medic ationGen ericName : Advair Diskus Not Available Not Available Not Available sertralin e 25 mg tablet TAKE 1 TABLET BY MOUTH EVERY DAY active Not Available Not Available No t Available omeprazol e 20 mg capsule,d elayed release TAKE 1 CAPSULE BY MOUTH EVERY DAY active Not Available Not Available No t Available furosemid e 20 mg tablet TAKE 1 TABLET BY MOUTH EVERY MORNING active Not Available Not Available No t Available albuterol sulfate HFA 90 mcg/actua tion aerosol inhaler active Medicati on ID: [id number] B rand Name: albutero l sulfate Send Method: E-Prescr ibed Sub s Allowed: subs OK Medic ationGen ericName : albutero l sulfate Not Available Not Available Not Available fluoxetin e 20 mg capsule 01/16 completed Medicati on ID: [id number] Du ration Value: 30 Brand Name: fluoxeti ne Send Method: E-Prescr ibed Sub s Allowed: subs OK Medic ationGen ericName : fluoxeti ne Not Available Not Available Not Available fluticaso ne propionat e 50 mcg/actua tion nasal spray,[facility] active Medicati on ID: [id number] B rand Name: fluticas one propiona te Send Method: E-Prescr ibed Sub s Allowed: subs OK Medic ationGen ericName : fluticas one propiona te Not Available Not Available Not Available TobraDex 0.3 %-0.1 % eye drops,[facility] penon 07/08 completed Medicati on ID: [id number] Isela mooney By Name: ANA [address] [address] Name: TobraDex Send Method: E-Prescr ibed Sub s Allowed: subs OK Speci al Instruct ion: Instill 4 drops in the affect ear BID for 10 days Med icationG enJuan me: TobraDex Not Available Not Available Not Available metformin ER 750 mg tablet,ex tended release 24 hr TAKE 1500 MG (2 TABS X 750 MG) ORALLY DAILY active Not Available Not Available No t Available Colcrys 0.6 mg tablet 07/08 completed Medicati on ID: [id number] Du ration Value: 30 Reason: () Brand Name: Colcrys Send Method: E-Prescr ibed Sub s Allowed: subs OK Medic ationGen ericName : Colcrys Not Available Not Available Not Available OneTouch Verio test strips CHECK GLUCOSE ONCE A DAY active Not Available Not Available No t Available Combivent Respimat 20 mcg-100 mcg/actua tion solution for inhalatio n 01/16 completed Medicati on ID: [id number] Du ration Value: 30 Brand Name: Combiven t Respimat Send Method: E-Prescr ibed Sub s Allowed: subs OK Medic ationGen ericName : Combiven t Respimat Not Available Not Available Not Available Trulicity 1.5 mg/0.5 mL subcutane ous pen injector active Medicati on ID: [id number] B rand Name: Trulicit y Send Method: E-Prescr ibed Sub s Allowed: subs OK Medic ationGen ericName : Trulicit y Not Available Not Available Not Available Spiriva Respimat 2.5 mcg/actua tion solution for inhalatio n INHALE 2 PUFFS BY MOUTH AT THE SAME TIME EVERY DAY active Not Available Not Available No t Available Wixela Inhub 500 mcg-50 mcg/dose powder for inhalatio n TAKE 1 PUFF BY MOUTH EVERY 12 HOURS IN THE MORNING AND IN THE EVENING active Not Available Not Available No t Available OneTouch Delica Plus Lancet 33 gauge TEST BLOOD SUGAR ONCE DAILY active Not Available Not Available No t Available Trulicity 3 mg/0.5 mL subcutane ous pen injector active Not Available Not Available Not Available Vitals Date Recorded Body height Body mass index (BMI) Body weight Provider Name and Address Organization Details Last Updated DateTime 12/29/2023 165.1 cm 30 kg/m2 29130.63 g Anusha Bunch [place] - [facility] 12/29/2023 13:26:42 Date Recorded Body height Body mass index (BMI) Body weight Provider Name and Address Organization Details Last Updated DateTime 04/27/2024 165.1 cm 29.5 kg/m2 58520.85 g Marisol Rose [place] - [facility] 04/27/2024 10:55:16 Social History None recorded. Functional Status None recorded. Mental Status None recorded. Family History Nothing Reported. Medical History No medical history recorded. Past Encounters Encounter ID Performer Location Encounter Start Date Encounter Closed Date Diagnosis/Indication Diagnosis SNOMED-CT Code Diagnosis ICD10 Code Diagnosis Note [id number] Brayan PRUETT [facility] [address] [address] 11/11/2023 13:57:40 11/12/2023 12:19:21 Sensorineural hearing loss of bilateral ears 319535338 H90.3 [id number] Brayan PRUETT [facility] [place] [address] [place] [address] 11/20/2023 10:38:03 11/24/2023 07:45:46 Sensorineural hearing loss of bilateral ears 354947725 H90.3 [id number] Brayan [facility]UETT [place] [address] [place] [phone] 11/25/2023 13:28:35 11/27/2023 07:09:23 Sensorineural hearing loss of bilateral ears 419117455 H90.3 [id number] RAQUEL LAWRENCE MD [facility] [address] [address] 12/29/2023 13:09:40 12/29/2023 13:45:45 Impacted cerumen of bilateral ears 1839965154 386833 H61.23 [id number] FABI MATIAS MD [facility] [address] [address] 04/27/2024 10:51:26 04/27/2024 11:03:05 Impacted cerumen of bilateral ears 1793771333 611608 H61.23 Sensorineu ral hearing loss of bilateral ears 571577715 H90.3 Health Concerns Section Related Observation LastModified by Organization Detai ls LastModified Time None Recorded Concern Status LastModified by Organization Details LastModified Time None Recorded Advance Directives Directive None Recorded Payers Encounter Date Sequence Insurance Name Policy Number Policy Oscar Covered Member ID Oscar Member ID Guarantor Name 11/11/2023 2 [employer] - SENIOR SERVICES PLAN F (MEDICARE SUPPLEMENT) [id number] Shayan A Soja [id number] Shayan A Soja 11/11/2023 1 [place] Shayan A Soja [id number] Shayan A Soja 11/20/2023 2 [employer] - SENIOR SERVICES PLAN F (MEDICARE SUPPLEMENT) [id number] Shayan A Soja [id number] Shayan A Soja 11/20/2023 1 [place] Shayan A Soja [id number] Shayan A Soja 11/25/2023 2 [employer] - SENIOR SERVICES PLAN F (MEDICARE SUPPLEMENT) [id number] Shayan A Soja [id number] Shayan A Soja 11/25/2023 1 [place] Shayan A Soja [id number] Shayan A Soja 12/29/2023 2 [employer] - SENIOR SERVICES PLAN F (MEDICARE SUPPLEMENT) [id number] Shayan A Soja [id number] Shayan A Soja 12/29/2023 1 [place] Shayan A Soja [id number] Shayan A Soja 04/27/2024 1 [place] Shayan A Soja [id number] Shayan A Soja 04/27/2024 2 [employer] - GIC INDEMNITY PLAN (MEDICARE SUPPLEMENT) [id number] Shayan A Soja [id number] Shayan A Soja Notes Date Note Type Note Provider Name and Address Organization Details Recorded Time 11/11/2023 text/html Patient returned to our office for the initial fitting of {{hearing devices a hearing device in the right ear* a hearing device in the left ear}} as a {{first time user longstanding user of the same style of device longstanding user of the same style of device on the left ear#}}. They have reported significant difficulty communicating in {{adverse listening situations* both adverse listening situations and in quiet}} and amplification has been recommended. Patient's case has been reviewed by an diesel retrofit designer who has provided medical clearance for the use of hearing devices. JEFFRY HURD, AuD [address], [place], [address], [facility] - [facility] 11/11/2023 13:58:57 11/20/2023 text/html Hearing Aid ProblemReported bypatient.Visit typedrop off repair JEFFRY VANNESSA, AuD [address], [place], [address], [facility] - [facility] [place] 11/20/2023 10:40:16 11/25/2023 text/html Patient returned for an orientation fitting of {{hearing devices a hearing device in the right ear* a hearing device in the left ear}}. They are {{a first time user a longstanding user of amplification*}}. They reported significant difficulty communicating and understanding speech and {{hearing devices were the hearing device was*}} ordered through a 3rd constitution party vendor to be fitted at our office. The patient had selected this make and model for their lifestyle and audiological needs. JEFFRYJACE HURD, AuD [address] [facility],[address] [address], [place], [address], [facility] [place] 11/27/2023 11:45:19 12/29/2023 text/html 79-year-old male presents for cerumen removal. He reports hearing is unchanged. Hearing aids fit well and provide good benefit. He denies otalgia and otorrhea. RAQUEL LAWRENCE MD [address] [facility] [address], [place], [address], [facility] - [facility] 12/29/2023 16:54:55 04/27/2024 text/html 79-year-old male presents for cerumen removal. He has bilateral hearing loss with hearing aids. No acute issues. FABI MATIAS MD [address] [place], [place], [address], [facility] - [facility] 04/27/2024 14:16:52
--- OUTSIDE RECORDS SUMMARY | 2024-05-14 15:16 | XMS_ITS ---
Author Organization [facility] Address [address] [facility] [place] [address] Care Team Providers Care Supervisor Stone Name Role Phone Jia Parmar MD Primary Care Provider UnavailMelina Acharya Unavailable [phone] Alexandre Williamson Unavailable [phone] Allergies Allergen (clinical drug ingredient) Drug/Non Drug Allergy documented on EMR Reaction Allergy Type Onset Date Status albuterol Albuterol Unknown Drug Allergy Active Bactrim Unknown Drug Allergy Active cephalexin Cephalexin [...] 024 Encounters Encounter Location Date Provider Diagnosis [facility] [address] [place] [address] 08/21/2023 Alexandre Williamson Pain in right toe(s) [...] Months, 2 Month s, Reason: Provider Name:Melina Richtersoledad chowdhury, 06/24/2024 09:00:00 AM, [address] [place] [address], [phone], Procedure Notes * Category Sub-Category Detail [...] as necessary. Patient chooses, no pharmaceutical tx (88278) Keratoma Treatment Parring or Cutting o f Benign Hyperkeratotic Lesion(s) 72258 ( >4 Lesions) - The Benign hyperkeratotic lesions, as described above were pared, and/or cut utilizing a sterile #15 blade, tissue nippers, and/or dremel Progress Notes * Lynda DRIVER DDOB:1945 ( 78 yo F)Acc No.[id number]:08/21/2023 Progress Note Patient:?Lynda Driver Provider:?Alexandre Williamson DPM :1945???Age:78 Y???Sex:Female D ate:08/21/2023 Address:[address] [place] [address] [place] Pcp:Jia Parmar MD Subjective: [...] gardening. ?Marital status: . 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 * Medications:?TakingSpironola ctone 25 MG Tablet 1 [...] 5.3 * Examination: ???Ophthalmology Referral: ?DIABETES EYE EXAM?Diabetic Retinopathy Screening:?Yes 11/23 ?Findings of Diabetic Eye Exam:?no retinopathy?General Examination: ?GENERAL APPEARANCE:?pleasant, alert, well nourished, well [...] as necessary. Patient chooses, no pharmaceutical tx (34171).?Keratoma Treatment:?Parring or Cutting of Benign Hyperkeratotic Lesion(s)?76693 ( >4 Lesions) - The Benign hyperkeratotic lesions, as described above were pared, and/or cut utilizing a sterile #15 blade, tissue nippers, and/or dremel.? * Procedure Codes:?03310 TRIM SKIN LESIONS, OVER 4, Modifiers: XS 13135 DEBRIDE NAIL, 6 OR MORE, Modifiers: XS * Follow Up:?3 Months, 2 Month s * Images: * Sign off status: Completed true * Provider:?Alexandre Williamson DPM Date:? 024 Generated for Anisha stephen/Jaspal/Noah on:?05/14/2024 03:16 PM EDT History and Physical Notes * HPI (History [...]
--- OUTSIDE RECORDS SUMMARY | 2024-05-14 15:16 | XMS_ITS | Continuity of Care Document ---
Author Organization [place] - [facility], [facility] Address [address] [place] [address] Assessment Encounter Date Assessment Date Assessment LastModified by Organization Details LastModified Time 04/27/2024 04/27/2024 79-year-old male presents for cerumen removal. Cerumen removed bilaterally. Follow-up in 6 months. [email or web address] Not available 04/27/2024 11:01:00 Plan of Treatment Reminders Order Date Submit Date Provider Last Modified By Organization Details Last Modified Time Details Appointments Establish ed 15 2024 11:15A M SHANKAR RASMUSSEN PA-C Not available Not [...] Gastroeso phageal reflux disease without esophagit is 915178572 Active 2021 Gastro-es ophageal reflux disease without esophagit is; Note: Date Diagnosed : 07/23/2021 11:19 AM (K21.9) Not Available [facility] 02:40:29 Localized swelling of head 07571551017 123177 Active 2021 Localized swelling, mass and lump, head; Note: Date Diagnosed : 07/23/2021 11:19 AM (R22.0) Not Available [facility] 02:40:25 Sensorine ural hearing loss of bilateral ears 693108841 Active 2014 Sensorine ural HL, bilateral ; Note: Date Diagnosed : 11/29/2014 3:31 PM (389.18) Hearing loss: Sensorine ural hearing loss, bilateral ; Note: Date Diagnosed : 12/08/2013 4:19 PM (389.18) ; Start Date : 4 Sensori neural hearing loss, bilateral ; Note: Date Diagnosed : 11/29/2014 3:31 PM (H90.3) Not Available [facility] 4 02:40:23 Impacted cerumen in left ear 78834431331 45541 Active 2018 Impacted cerumen, left ear; Note: Date Diagnosed : 9 9:31 AM (H61.22) Impacte d cerumen, left ear; Note: Date Diagnosed : 07/08/2017 10:20 AM (H61.22) ; Start Date : 8 Not Available [facility] 4 02:40:37 Impacted cerumen 86726499 Active 2014 Impacted cerumen; Location: bilateral CMS Risk: low risk Cond ition: uncontrol led Not Available [facility] 4 02:40:36 Impacted cerumen of bilateral ears 84927865646 90522 Active 2020 Impacted cerumen, bilateral ; Note: Date Diagnosed : 1 10:28 AM (H61.23) Impacte d cerumen, bilateral ; Note: Date Diagnosed : 03/26/2016 10:29 AM (H61.23) ; Start Date : 7 Not Available [facility] 4 02:40:22 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 Procedures Surgical History Date Name Laterality Status Provider Name and Address Organization Details Recorded Time 5 Cerumen removal without microscope bilat completed SHANKAR RASMUSSEN [facility] [address] [facility] [address], [place], [address], [facility] 04/27/2024 11:00:46 4 Cerumen removal without microscope bilat completed JOSE MOSHER [facility] [address] [facility] [address], [place], [address], [facility] 12/29/2023 13:43:26 Imaging Results None recorded. Procedure Notes None recorded. Medical Equipment None Reported. Allergies Allergen ID Allergen Name Allergen Category Reaction Reaction Severity Criticality Documentation Date Start Date Code Code System Note Provider Name and Address Organization Details Recorded Time 40046 cephalexi n medicatio n other Not available Not available 07/15/2023 2231 RxNorm React ion: unkno wn, unspe cifie d;; Not Available [facility] 4 00:59:08 15655 morphine medicatio n other Not available Not available 07/15/2023 7052 RxNorm React ion: unkno wn, unspe cifie d;; Not Available [facility] 4 00:59:12 Medications Name Sig Start Date [...] mg tablet 01/16 completed Medicati on ID: [id number] Du ration Value: 30 Brand Name: amlodipi ne Send Method: E-Prescr ibed Sub s Allowed: subs OK Medic ationGen ericName : amlodipi ne Not Available Not Available Not Available buspirone 10 mg tablet TAKE 1 TABLET BY MOUTH TWICE A DAY active Not Available Not Available No t Available Advair Diskus 250 mcg-50 mcg/dose powder for inhalatio n 01/16 completed Medicati on ID: [id number] Du ration Value: 30 Brand Name: Advair [...] tion aerosol inhaler active Medicati on ID: [id number] B rand Name: albutero l sulfate Send Method: E-Prescr ibed Sub s Allowed: subs OK Medic ationGen ericName : albutero l sulfate Not Available Not Available Not Available fluoxetin e 20 mg capsule 01/16 completed Medicati on ID: [id number] Du ration Value: 30 Brand Name: fluoxeti ne Send Method: E-Prescr ibed Sub s Allowed: subs OK Medic ationGen ericName : fluoxeti ne Not Available Not Available Not Available fluticaso ne propionat e 50 mcg/actua tion nasal spray,daniella pension active Medicati on ID: [id number] B rand Name: fluticas one propiona te Send Method: E-Prescr ibed Sub s Allowed: subs OK Medic ationGen ericName : fluticas one propiona te Not Available Not Available Not Available TobraDex 0.3 %-0.1 % eye drops,daniella pension 07/08 completed Medicati on ID: [id number] Isela mooney By Name: Wendy Nahid, PA-C Bra nd Name: TobraDex Send Method: E-Prescr ibed Sub s Allowed: subs OK Speci al Instruct ion: Instill 4 drops in the affect ear BID for 10 days Med Muriel Dinh me: TobraDex Not Available Not Available Not Available metformin ER 750 mg tablet,ex tended release 24 hr TAKE 1500 MG (2 TABS X 750 MG) ORALLY DAILY active Not Available Not Available No t Available Colcrys 0.6 mg tablet 07/08 completed Medicati on ID: [id number] Du ration Value: 30 Reason: () Brand Name: Colcrys Send Method: E-Prescr ibed Sub s Allowed: subs OK Medic ationGen ericName : Colcrys Not Available Not Available Not Available OneTouch Verio test strips CHECK GLUCOSE ONCE A DAY active Not Available Not Available No t Available Combivent Respimat 20 mcg-100 mcg/actua tion solution for inhalatio n 01/16 completed Medicati on ID: [id number] Du ration Value: 30 Brand Name: Combiven t Respimat Send Method: E-Prescr ibed Sub s Allowed: subs OK Medic ationGen ericName : Combiven t Respimat Not Available Not Available Not Available Trulicity 1.5 mg/0.5 mL subcutane ous pen injector active Medicati on ID: [id number] B rand Name: Trulicit y Send Method: [...] Updated DateTime 04/27/2024 165.1 cm 29.5 kg/m2 86164.85 g Marisol Ashclaresoledad [place] - [facility] 04/27/2024 10:55:16 Social History None recorded. Functional Status None recorded. Mental Status None recorded. Family History Nothing Reported. Medical History No medical history recorded. Past Encounters Encounter ID Performer Location Encounter Start Date Encounter Closed Date Diagnosis/Indication Diagnosis SNOMED-CT Code Diagnosis ICD10 Code Diagnosis Note [id number] FABI MATIAS MD [facility] [address] [address] 04/27/2024 10:51:26 04/27/2024 11:03:05 Impacted cerumen of bilateral ears 1053007202 578532 H61.23 Sensorineu ral hearing loss of bilateral ears 452966974 H90.3 Health Concerns Section Related Observation LastModified by Organization Detai ls LastModified Time None Recorded Concern Status LastModified by Organization Details LastModified Time None Recorded Payers Encounter Date Sequence Insurance Name Policy Number Policy Oscar Covered Member ID Oscar Member ID Guarantor Name 04/27/2024 1 [place] [employer] Shayan Leslie [id number] Shayan Leslie 04/27/2024 2 [facility] INDEMNITY PLAN (MEDICARE SUPPLEMENT) [id number] Shayan Leslie [id number] Shayan Leslie Notes Date Note Type Note Provider Name and Address Organization Details Recorded Time 04/27/2024 text/html 79-year-old male presents for cerumen removal. He has bilateral hearing loss with hearing aids. No acute issues. FABI MATIAS MD [address] [place] [address], [phone], [facility] - [facility] 04/27/2024 14:16:52
--- OUTSIDE RECORDS SUMMARY | 2024-05-14 15:16 | XMS_ITS | Continuity of Care Document ---
Author Organization [place] - [facility], [facility] Address [address] [place] [address] Care Team Providers Care Continuous Still Operator Name Role Phone ANN REGAN Primary Care Provider [phone] Assessment Encounter Date Assessment Date Assessment LastModified by Organization Details LastModified Time 04/27/2024 04/27/2024 79-year-old female presents for cerumen removal. Cerumen removed bilaterally. TMs normal to inspection. Follow-up in 6 months. [email or web address] Not available 04/27/2024 11:02:21 Plan of Treatment Reminders Order Date Submit [...] Address Organization Details Recorded Time Impacted cerumen 68233092 Active 2014 Impacted cerumen; Location: bilateral CMS Risk: low risk Cond ition: uncontrol led Not Available [facility] 4 02:40:33 Dizziness and giddiness 196667224 Active 2015 Dizziness and giddiness ; Note: Date Diagnosed : 12/05/2015 3:08 PM (R42) Not Available [facility] 4 02:40:24 Impacted cerumen in left ear 72699733688 29070 Active 2022 Impacted cerumen, left ear; Note: Date Diagnosed : 04/16/2022 9:38 AM (H61.22) Not Available [facility] 4 02:40:31 Sensorine ural hearing loss of bilateral ears 549322272 Active 2015 Sensorine ural HL, bilateral ; Note: Date Diagnosed : 11/29/2014 12:59 PM (389.18) ; Start Date : 5 Sensori neural hearing loss, bilateral ; Location: bilateral Note: Date Diagnosed : 04/04/2015 10:39 AM (H90.3) Not Available [facility] 4 02:40:26 Impacted cerumen of bilateral ears 39528089672 92884 Active 2016 Impacted cerumen, bilateral ; Note: Date Diagnosed : 10/07/2016 10:53 AM (H61.23) Not Available [facility] 4 02:40:27 Difficult y speaking Active 2013 Hoarsenes s; CMS Risk: moderate risk CMS Treatment : new problem (to examiner) : no additiona l workup planned N ote: Date Diagnosed : 4 12:49 PM (784.49) Not Available [facility] 4 02:40:30 Impacted cerumen in right ear 08025372457 57120 Active 2020 Impacted cerumen, right ear; Note: Date Diagnosed : 09/27/2020 11:30 AM (H61.21) Not Available [facility] 4 02:40:23 Problem Notes None recorded. Procedures Surgical History Date Name Laterality Status Provider Name and Address Organization Details Recorded Time 5 Cerumen removal without microscope bilat completed SHANKAR RASMUSSEN PA-C [address] [facility],[address], [address], [facility] - [facility] 04/27/2024 11:02:06 4 Cerumen removal without microscope bilat completed JOSE MOSHER PA-C [address] [facility],[address], [address], [place] - [facility] 12/29/2023 13:45:22 Imaging Results None recorded. Procedure Notes None recorded. Medical Equipment None Reported. Allergies Allergen ID Allergen Name Allergen Category Reaction Reaction Severity Criticality Documentation Date Start Date Code Code System Note Provider Name and Address Organization Details Recorded Time 78718 perfume environme nt other Not available Not available 07/15/2023 57799 UNK React ion: unkno wn, unspe cifie d;; Not Available [facility] 4 00:59:04 50401 wheat gluten extract food other Not available Not available 07/15/2023 73454 81 RxNorm React ion: unkno wn, unspe cifie d;; Not Available [facility] 4 00:59:04 97924 albuterol medicatio n other Not available Not available 07/15/2023 435 RxNorm React ion: unkno wn, unspe cifie d;; Not Available [facility] 4 00:59:05 31471 latex environme nt,medica tion other Not available Not available 07/15/2023 17240 91 RxNorm React ion: unkno wn, unspe cifie d;; Not Available [facility] 4 00:59:06 13091 indometha veronique medicatio n other Not available Not available 07/15/2023 5781 RxNorm React ion: unkno wn, unspe cifie d;; Not Available [facility] 4 00:59:07 58186 Product containin g penicilli n (product) medicatio n other Not available Not available 07/15/2023 30031 8001 SNOMED React ion: unkno wn, unspe cifie d;; Not Available [facility] 4 00:59:09 43374 cephalexi n medicatio n other Not available Not available 07/15/2023 2231 RxNorm React ion: unkno wn, unspe cifie d;; Not Available [facility] 4 00:59:11 82232 Substance with sulfonami de structure and antibacte rial mechanism of action (substanc e) medicatio n other Not available Not available 07/15/2023 42011 8003 SNOMED React ion: unkno wn, unspe cifie d;; Not Available [facility] 4 00:59:13 Medications Name Sig Start Date Stop Date Status Note LastModified by Organization Details LastModified Time latanopro st 0.005 % eye drops INSTILL 1 DROP INTO BOTH EYES EVERY NIGHT AT BEDTIME DIRECTED active Not Available Not Available No t Available hydralazi ne 10 mg tablet TAKE 1 TABLET BY MOUTH TWICE A DAY active Not Available Not Available No t Available diclofena c 3 % topical gel 2017 active Medicati on ID: [id number] D uration Value: 25 Brand Name: diclofen [...] mg tablet TAKE 1 TABLET BY MOUTH FOR BEDTIME FOR FOR INSOMNIA active Not Available [...] by mouth 2015 active Medicati on ID: [id number] P colten d By Name: ANA [place] nd Name: meclizin e Send Method: E-Prescr ibed Sub s Allowed: subs OK Speci al Instruct ion: as needed for dizzines s Medica tionGene ricName: meclizin e Not Available Not Available Not Available amlodipin e 5 mg tablet TAKE 1 TABLET ORALLY 2 TIMES A DAY active Not [...] by mouth 07/08 completed Medicati on ID: [id number] P colten d By Name: Sheryl Ochoa nd Name: [...] xine 50 mcg tablet TAKE 1 TABLET ORALLY DAILY active Not Available Not Available No t Available nortripty line 10 mg capsule 2017 active Medicati on ID: [id number] D uration Value: 30 Brand Name: lauro nguyễn Se nd Method: E-Prescr ibed Sub s Allowed: subs OK Medic ationGen ericName : nortript yline Not Available Not Available Not Available cyanocoba gladys (vit B-12) 1,000 mcg/mL injection solution 1000 MCG INTRAMUS CULARLY EVERY 4 WEEKS active Not Available Not Available No t Available mirtazapi ne 30 mg tablet 2017 active Medicati on ID: [id number] D uration Value: 90 Brand Name: mirtazap [...] mg capsule 2017 active Medicati on ID: [id number] D uration Value: 10 Brand Name: gabapent in Send Method: E-Prescr ibed Sub s Allowed: subs OK Speci al Instruct ion: TK 1 C PO TID QHS FOR 10 DAYS Med icationG enericNa me: gabapent in Not Available Not Available Not Available sertralin e 25 mg tablet 25 MG ORALLY DAILY active Not Available Not Available No t Available ammonium lactate 12 % topical cream PLEASE SEE ATTACHED FOR DETAILED DIRECTIO NS active Not Available Not Available No t Available gabapenti n 100 mg capsule TAKE 2 CAPSULES BY MOUTH 3 TIMES A DAY active Not Available Not Available No t Available metoprolo l succinate ER 25 mg tablet,ex tended release 24 hr TAKE 2 TABLETS BY MOUTH ONCE DAILY active Not Available Not Available No t Available BD Tuberculi n Syringe 1 mL 25 gauge x 5/8 USE FOR MONTHLY INJECTIO NS active Not Available Not Available No t Available budesonid e DR - ER 3 mg capsule,d elayed,ex tended release 2017 active Medicati on ID: [id number] D uration Value: 30 Brand Name: budbrad de Send Method: E-Prescr ibed Sub s Allowed: subs OK Speci al Instruct ion: TK 2 CS PO QD Medic ationGen ericName : budesoni de Not Available Not Available Not Available timolol maleate 0.5 % eye drops INSTILL 1 DROP INTO BOTH EYES EVERY MORNING DIRECTED active Not Available Not Available No t Available ropinirol e 5 mg tablet 2017 active Medicati on ID: [id number] D uration Value: 90 Brand Name: ropiniro le Send Method: E-Prescr ibed Sub s Allowed: subs OK Speci al Instruct ion: TK 1 T PO QD Medic ationGen ericName : ropiniro le Not Available Not Available Not Available esomepraz ole magnesium 20 mg capsule,d elayed release 2017 active Medicati on ID: [id number] D uration Value: 90 Brand Name: esomepra zole magnesiu m Send Method: E-Prescr ibed Sub s Allowed: subs OK Medic ationGen ericName : esomepra zole magnesiu m Not Available Not Available Not Available oxycodone 5 mg tablet TAKE 1 ORAL FOUR TIMES A DAY FOR 7 DAYS active Not Available Not Available No t Available olmesarta n 5 mg tablet TAKE [...] % mouthwash 2017 active Medicati on ID: [id number] D uration Value: 28 Brand Name: chlorhex [...] Address Organization Details Last Updated DateTime 04/27/2024 152.4 cm 19.7 kg/m2 95590.83 g Marisol Rose [place] - [facility] 04/27/2024 10:55:46 Social History None recorded. Functional Status None recorded. Mental Status None recorded. Family History Nothing Reported. Medical History No medical history recorded. Gynecological HistoryNo gynecological history recorded. Obstetrics History GPAL:G 0 P 0 0 0 0 Past Encounters Encounter ID Performer Location Encounter Start Date Encounter Closed Date Diagnosis/Indication Diagnosis SNOMED-CT Code Diagnosis ICD10 Code Diagnosis Note [id number] ANA LO MD [facility] [address] [address] 04/27/2024 10:43:24 04/27/2024 11:02:42 Impacted cerumen of bilateral ears [id number] 377957 H61.23 Health Concerns Section Related Observation LastModified by Organization Detai ls LastModified Time None Recorded Concern Status LastModified by Organization Details LastModified Time None Recorded Payers Encounter Date Sequence Insurance Name Policy Number Policy Oscar Covered Member ID Oscar Member ID Guarantor Name 04/27/2024 2 [facility] INDEMNITY PLAN (MEDICARE SUPPLEMENT) [id number] Shayan Leslie [id number] Lynda Leslie 04/27/2024 1 [place] [employer] Lynda Leslie [id number] Lynda Leslie Notes Date Note Type Note Provider Name and Address Organization Details Recorded Time 04/27/2024 text/html 79-year-old female presents for cerumen removal. No acute issues since her last visit. ANA LO MD [address] [place] [address], [phone], [facility] - [facility] 04/28/2024 07:28:04 OBGyn Episode No OBEpisode recorded.
--- OUTSIDE RECORDS SUMMARY | 2024-05-14 15:16 | XMS_ITS | Clinical Summary ---
Author Organization [facility] Address [address] [place] [address] Phone Care Team Providers Care Raw Juice Weigher Name Role Phone Jia Parmar MD Primary Care Provider [phone] Encounters Date Type Department Care Team Description 02/21/2024 7:54 AM EST - 02/21/2024 11:59 PM EST [facility]counter [facility] [address] [phone] Encounter for screening mammogram for breast cancer Discharge Disposition: Home or Self Care from Last 3 Months Surgical History Surgery Date Site/Laterality Comments HYSTERECTOMY STEREOTACTIC CORE BIOPSY Right Family History Medical History Relation Name Comments Breast cancer Father's Sister Relation Name Status Comments Father's Sister Alive Social History Tobacco Use Types Packs/Day Years Used Date Smoking Tobacco: Never Assessed Alcohol Use Standard Drinks/Week Comments Never 0 (1 standard drink = 0.6 oz pur e alcohol) Comments No Sex and Gender Information Value Date Recorded Sex Assigned at Female 02/20/2024 2:08 PM EST Legal Sex Female 7:01 AM EST Gender Identity Female 02/20/2024 2:08 PM EST Sexual Orientation Not on file Obstetrics History Para Term AB IAB SAB Ectopic Multiple Livin g Live Births 3 Last Filed Vital Signs Vital Sign Reading Time Taken Comments Blood Pressure - - Pulse - - Temperature - - Respiratory Rate - - Oxygen Saturation - - Inhaled Oxygen Concentration - - Weight 49.9 kg (110 lb) 02/21/2024 8:00 AM EST Height 152.4 cm (5') 02/21/2024 8:00 AM EST Body Mass Index 21.48 02/21/2024 8:00 AM EST Plan of Treatment Health Maintenance Due Date Last Done Comments Diabetes: Annual Foot Exam 1955 Diabetes: Annual Retina Eye Exam 1955 Diabetes: Annual GFR (Glomerular Filtration Rate) 03/19/2021 03/19/2020 Cholesterol Screening (Lipid Panel) 02/03/2022 Depression Screening 02/03/2022 Falls Risk Assessment 02/03/2022 Hepatitis C Screening 02/03/2022 Medicare Annual Wellness Visit 02/03/2022 Social Influencers of Health Screening 02/03/2022 COVID-19 Vaccine ( season) 2023 11/29/2021, 06/10/2021, 11/26/2020, Additional history exists Influenza Vaccine (#1) 2023 , 11/16/2021, 10/17/2020, Additional history exists Diabetes: Annual Urine Albumin-Creatinine Ratio (uACR) 02/21/2024 Diabetes: Blood Sugar Control Test (HGBA1C) 02/21/2024 Hypertension/CHF/CAD Annual BMP Blood Test 02/21/2024 03/19/2020 DTaP,Tdap,and Td Vaccines (3 - Td or Tdap) 09/12/2030 09/12/2020, 11/20/2013 Osteoporosis Screening (Bone Density Screening) 11/19/2032 11/19/2022, 07/27/2020, 06/16/2018 Pneumococcal Vaccine: 50+ Years Completed 04/05/2014, 11/08/2013, 12/25/2012, Additional history exists Zoster Vaccines Completed 10/13/2017, 06/01, 12/25/2012 RSV Immunization Patients 60+ Years Old Completed 11/27/2022 HIB Vaccines Aged Out No longer eligi ble based on patient's age to complete this topic HPV Vaccines Aged Out No longer eligi ble based on patient's age to complete this topic Hepatitis A Vaccines Aged Out No long er eligible based on patient's age to complete this topic Hepatitis B Vaccines Aged Out No long er eligible based on patient's age to complete this topic IPV Vaccines Aged Out No longer eligi ble based on patient's age to complete this topic MMR Vaccines Aged Out No longer eligi ble based on patient's age to complete this topic Meningococcal ACWY Vaccine Aged Out N o longer eligible based on patient's age to complete this topic Meningococcal B Vacine Aged Out No lo nger eligible based on patient's age to complete this topic RSV Immunization Patients Under 20 months Aged Out No longer eligible based on patient's age to complete this topic Varicella Vaccines Aged Out No longer eligible based on patient's age to complete this topic Procedures Procedure Name Priority Date/Time Associated Diagnosis Comments MG MAMMO DIGITAL SCREENING W ADAN BILAT Routine 02/21/2024 8:17 AM EST Encounter for screening mammogram for breast cancer LETICIA DEXA AXIAL SKELETON Routine 11/19/2022 11:36 AM EDT Other specified disorders of bone density and structure, other site from Last 3 Months or Most Recently Relevant to Health Maintenance Results * MG Mammo Digital Screening w Adan bilat (02/21/2024 8:17 AM EST) Anatomical Region Laterality Modality Breast Bilateral Mammography 02/26/2024 9:58 AM EST Impressions 02/26/2024 10:03 AM EST No mammographic evidence of malignancy. A negative mammogram in the presence of a clinically suspicious palpable abnormality does not preclude the possibility of malignancy or alter the indications for biopsy. PQRI CPT II 3342F Code 40560, 32420 PQRI 225 CPT II 7025F TISSUE DENSITY: There are scattered areas of fibroglandular density. (BI-RADS category B) IMPRESSION: Benign. BI-RADS CATEGORY: 2 - BENIGN RECOMMENDATION: Screening bilateral mammogram is recommended in 1 year. Mammo Location: [facility], [address] [place] [address] -------- FINAL REPORT -------- Dictated By: Clive Brewer Dictated Date: 02/26/2024 09:58 ET Assigned Physician: Clive Brewer Reviewed and Electronically Signed By: Clive Brewer Signed Date: 02/26/2024 10:03 ET Workstation ID: [id number] Transcribed By: Self Edit Transcribed Date: 02/26/2024 09:58 ET Narrative 02/26/2024 10:03 AM EST CLINICAL: The patient is a 79 years Female presenting for routine screening mammography. ??The patient has a history of right breast biopsy, pathology benign. COMPARISON: Most recently 10/30/2022 and most remotely ?? TECHNIQUE: Full-field digital mammography of the breasts bilaterally consisting of tomosynthesis in MLO and CC projection is performed in the i[employer]oot 2000-D unit. ??Computer aided detection utilizing the iCAD system was utilized. FINDINGS: The breasts are again seen to be composed of accommodation of fatty and fibroglandular elements. ??A tissue marker from the previous benign biopsy is again seen posteriorly in the upper outer quadrant of the right breast. ??Bilateral benign punctate and vascular calcifications are again seen. ??There is no suspicious cluster of microcalcifications, mass, or area of architectural distortion. There is no skin thickening or nipple retraction. Procedure Note Clive Brewer MD - 02/26/2024 CLINICAL: The patient is a 79 years Female presenting for routinescreening mammography. The patient has a history of right breast biopsy,pathology benign. COMPARISON: Most recently 10/30/2022 and most remotely TECHNIQUE: Full-field digital mammography of the breasts bilaterallyconsisting of tomosynthesis in MLO and CC projection is performed in theWilmington Pharm[employer]ographe 2000-D unit. Computer aided detection utilizing the [employer] IS[employer]system was utilized. FINDINGS: The breasts are again seen to be composed of accommodation offatty and fibroglandular elements. A tissue marker from the previousbenign biopsy is again seen posteriorly in the upper outer quadrant of theright breast. Bilateral benign punctate and vascular calcifications areagain seen. There is no suspicious cluster of microcalcifications, mass,or area of architectural distortion. There is no skin thickening or nippleretraction. IMPRESSION: No mammographic evidence of malignancy. A negative mammogram in the presence of a clinically suspicious palpableabnormality does not preclude the possibility of malignancy or alter theindications for biopsy. PQRI CPT II 3342F Code 63927, 68326 PQRI 225 CPT II 7025F TISSUE DENSITY: There are scattered areas of fibroglandular density.(BI-RADS category B) IMPRESSION: Benign. BI-RADS CATEGORY: 2 - BENIGN RECOMMENDATION: Screening bilateral mammogram is recommended in 1 year. Mammo Location: [facility], [facility], [address] [place] [id number] -------- FINAL REPORT -------- Dictated By: Clive Brewer Dictated Date: 02/26/2024 09:58 ET Assigned Physician: Clive Brewer Reviewed and Electronically Signed By: Clive Brewer Signed Date: 02/26/2024 10:03 ET Workstation ID: [id number] Transcribed By: Self Edit Transcribed Date: 02/26/2024 09:58 ET us Self Referral Sppl IMG BI PROCEDURES Final Resul t * LETICIA DEXA AXIAL SKELETON (11/19/2022 11:36 AM EDT) Anatomical Region Laterality Modality Mammography 11/19/2022 8:53 AM EDT Narrative 11/19/2022 11:36 AM EDT [facility] Diagnostic Imaging Department [address] [place] [address] 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 Location/Status: ??SPDIMAM/REG CLI ? Mnemonic/Ordering Site: ??[facility] Ordering Physician: ??CHELSIE SAMUELS MD Leticia Dexa Axial Skeleton - 11/19/22920 Report Status:Signed HISTORY: ??The patient is a 77-year-old postmenopausal female with clinical concern for metabolic bone disease. FINDINGS: ??Dual energy x-ray absorptiometry of the lumbar spine and femurs is performed. The mean bone mineral density at L1-L4 is 0.984 gm/cm2 which is 83% of that of young normals and 106% of that of age matched controls. This yields a T-score of -1.6 and a Z-score of 0.5 which is diagnostic of osteopenia. The mean bone mineral density of the femurs bilaterally is 0.799 gm/cm2 which is 79% of that of young normals and 108% of that of age matched controls. ??This yields a T-score of -1.7 and a Z-score of 0.5 which is diagnostic of osteopenia. The T-score of the right femoral neck is -2.1 and that of the left femoral neck is -2.2 which is diagnostic of osteopenia. IMPRESSION: 1. Osteopenia. ??There has been an increase of 4.1% in bone mineral density in the lumbar spine since the prior examination of 07/27/2020. ??There has been an increase of 5.1% in bone mineral density in the right femur and an increase of 6.0% in bone mineral density in the left femur. 2. FRAX analysis yields a 10-year probability of major osteoporotic fracture of 15.3% and a 10-year probability of hip fracture of 4.7%. 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 FINDINGS: Dual energy x-ray absorptiometry of the lumbar spine and femursis performed. The mean bone mineral density at L1-L4 is 0.984 gm/cm2 which is83% of that of young normals and 106% of that of age matched controls. Thisyields a T-score of -1.6 and a Z-score of 0.5 which is diagnostic of osteopenia. The mean bone mineral density of the femurs bilaterally is 0.799 gm/tz6dhorl is 79% of that of young normals and 108% of that of age matched controls.This yields a T-score of -1.7 and a Z-score of 0.5 which is diagnostic ofosteopenia. The T-score of the right femoral neck is -2.1 and that of the left femoralneck is -2.2 which is diagnostic of osteopenia. IMPRESSION: 1. Osteopenia. There has been an increase of 4.1% in bone mineral densityin the lumbar spine since the prior examination of 07/27/2020. There has beenan increase of 5.1% in bone mineral density in the right femur and anincrease of 6.0% in bone mineral density in the left femur. 2. FRAX analysis yields a 10-year probability of major osteoporoticfracture of 15.3% and a 10-year probability of hip fracture of 4.7%. Code 90850 Dictating Physician: CLIVE BREWER MD Electronically Signed by: CLIVE BREWER MD Dic Date/Time: 11/19/22 1133 Sign date/Time: 11/19/22 1136 Chelsie Samuels MD IMG BI PROCEDURES Final Result from Last 3 Months or Most Recently Relevant to Health Maintenance Insurance MEDICARE MEDICARE Member Subscriber Plan / Payer (Ef fective 2024-Present) Name:Heber Driver Apoorva Member ID:[id number] Relation to Subscriber:Self Name:Heber Driver Subscriber ID:[id number] Payer ID:Not on file Group ID:Not on file Type:Medicare Address: [address] [address] [place]ICA[place] - [place] [facility] Advance Directives Documents on File Type Date Recorded 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 Health Care Decision (hx) 03/16/2014 AD CALDERON DIRECTIVE Health Care Decision (hx) 03/16/2014 AD CALDERON DIRECTIVE Health Care Decision (hx) 03/16/2014 AD CALDERON DIRECTIVE Health Care Decision (hx) 03/16/2014 AD CALDERON DIRECTIVE Health Care Decision (hx) 03/16/2014 AD CALDERON DIRECTIVE Health Care Decision (hx) 03/16/2014 AD CALDERON DIRECTIVE Health Care Decision (hx) 03/16/2014 AD CALDERON DIRECTIVE Health Care Decision (hx) 03/16/2014 AD CALDERON DIRECTIVE Health Care Decision (hx) 03/16/2014 AD CALDERON DIRECTIVE Health Care Decision (hx) 03/16/2014 AD CALDERON DIRECTIVE Health Care Decision (hx) 03/16/2014 AD CALDERON DIRECTIVE Health Care Decision (hx) 03/16/2014 AD CALDERON DIRECTIVE Health Care Decision (hx) 03/16/2014 AD CALDERON DIRECTIVE Health Care Decision (hx) 03/16/2014 AD CALDERON DIRECTIVE Health Care Decision (hx) 03/16/2014 AD CALDERON DIRECTIVE Health Care Decision (hx) 03/16/2014 AD CALDERON DIRECTIVE Health Care Decision (hx) 03/16/2014 AD CALDERON DIRECTIVE Health Care Decision (hx) 03/16/2014 AD CALDERON DIRECTIVE Health Care Decision (hx) 03/16/2014 AD CALDERON DIRECTIVE Health Care Decision (hx) 03/16/2014 AD CALDERON DIRECTIVE Health Care Decision (hx) 03/16/2014 AD CALDERON DIRECTIVE Health Care Decision (hx) 03/16/2014 AD CALDERON DIRECTIVE Health Care Decision (hx) 03/16/2014 AD CALDERON DIRECTIVE Health Care Decision (hx) 03/16/2014 AD CALDERON DIRECTIVE Health Care Decision (hx) 03/16/2014 AD CALDERON DIRECTIVE Health Care Decision (hx) 03/16/2014 AD CALDERON DIRECTIVE Health Care Decision (hx) 03/16/2014 AD CALDERON DIRECTIVE Care Teams Raw Juice Weigher Relationship Specialty Start Date End Date Jia Parmar MD [address] [place] [phone] PCP - General Internal Medicine 02/20/24
--- OUTSIDE RECORDS SUMMARY | 2024-05-14 15:16 | XMS_ITS | Data Portability ---
Author Organization [place] - [facility], Allergy Address [address] [address] Care Team Providers Care Client Delivery Specialist Name Role Phone ANN REGAN Primary Care [...] that arise. [email or web address] Not available 12/29/2023 13:44:59 04/27/2024 04/27/2024 79-year-old female presents for cerumen removal. Cerumen removed bilaterally. TMs normal to inspection. Follow-up in 6 months. [email or web address] Not available 04/27/2024 11:02:21 Plan of Treatment [...] Address Organization Details Recorded Time Impacted cerumen 64091244 Active 2014 Impacted cerumen; Location: bilateral CMS Risk: low risk Cond ition: uncontrol led Not Available [facility] 4 02:40:33 Dizziness and giddiness 109933371 Active 2015 Dizziness and giddiness ; Note: Date Diagnosed : 12/05/2015 3:08 PM (R42) Not Available [facility] 4 02:40:24 Impacted cerumen in left ear 44961562986 29580 Active 2022 Impacted cerumen, left ear; Note: Date Diagnosed : 04/16/2022 9:38 AM (H61.22) Not Available [facility] 4 02:40:31 Sensorine ural hearing loss of bilateral ears 204133609 Active 2015 Sensorine ural HL, bilateral ; Note: Date Diagnosed : 11/29/2014 12:59 PM (389.18) ; Start Date : 5 Sensori neural hearing loss, bilateral ; Location: bilateral Note: Date Diagnosed : 04/04/2015 10:39 AM (H90.3) Not Available [facility] 4 02:40:26 Impacted cerumen of bilateral ears 98915005720 66798 Active 2016 Impacted cerumen, bilateral ; Note: Date Diagnosed : 10/07/2016 10:53 AM (H61.23) Not Available [facility] 4 02:40:27 Difficult y speaking Active 2013 Hoarsenes s; CMS Risk: moderate risk CMS Treatment : new problem (to examiner) : no additiona l workup planned N ote: Date Diagnosed : 4 12:49 PM (784.49) Not Available [facility] 4 02:40:30 Impacted cerumen in right ear 16204269240 01969 Active 2020 Impacted cerumen, right ear; Note: Date Diagnosed : 09/27/2020 11:30 AM (H61.21) Not Available [facility] 4 02:40:23 Problem Notes None recorded. Procedures Surgical History Date Name Laterality Status Provider Name and Address Organization Details Recorded Time 5 Cerumen removal without microscope bilat completed SHANKAR RASMUSSEN PA-C [address] [place] [address],[place] [address], [place], [address], [facility] - [facility] 04/27/2024 11:02:06 4 Cerumen removal without microscope bilat completed JOSE KETANABELLA, [place]- [address] [facility] [address], [place], [address], [facility] - [facility] 12/29/2023 13:45:22 Imaging Results None recorded. Procedure Notes None recorded. Medical Equipment None Reported. Allergies Allergen ID Allergen Name Allergen Category Reaction Reaction Severity Criticality Documentation Date Start Date Code Code System Note Provider Name and Address Organization Details Recorded Time 93604 perfume environme nt other Not available Not available 07/15/2023 88755 UNK React ion: unkno wn, unspe cifie d;; Not Available [facility] 4 00:59:04 61988 wheat gluten extract food other Not available Not available 07/15/2023 45555 81 RxNorm React ion: unkno wn, unspe cifie d;; Not Available [facility] 4 00:59:04 12187 albuterol medicatio n other Not available Not available 07/15/2023 435 RxNorm React ion: unkno wn, unspe cifie d;; Not Available [facility] 4 00:59:05 71705 latex environme nt,medica tion other Not available Not available 07/15/2023 14807 91 RxNorm React ion: unkno wn, unspe cifie d;; Not Available [facility] 4 00:59:06 36034 indometha veronique medicatio n other Not available Not available 07/15/2023 5781 RxNorm React ion: unkno wn, unspe cifie d;; Not Available [facility] 4 00:59:07 84479 Product containin g penicilli n (product) medicatio n other Not available Not available 07/15/2023 00751 8001 SNOMED React ion: unkno wn, unspe cifie d;; Not Available [facility] 4 00:59:09 42489 cephalexi n medicatio n other Not available Not available 07/15/2023 2231 RxNorm React ion: unkno wn, unspe cifie d;; Not Available [facility] 4 00:59:11 08332 Substance with sulfonami de structure and antibacte rial mechanism of action (substanc e) medicatio n other Not available Not available 07/15/2023 68521 8003 SNOMED React ion: unkno wn, unspe cifie d;; Not Available [facility] 4 00:59:13 Medications Name Sig Start Date [...] topical gel 2017 active Medicati on ID: [id number] D uration Value: 25 Brand Name: diclofen [...] by mouth 2015 active Medicati on ID: 458602 P rescribe d By Name: ANA [place] nd Name: [...] by mouth 07/08 completed Medicati on ID: 862541 P rescribe d By Name: Sheryl Ochoa nd Name: nortript yline Se nd Method: E-Prescr ibed Sub s [...] mg capsule 2017 active Medicati on ID: [id number] D uration Value: 30 Brand Name: nortript yline Se nd Method: E-Prescr ibed Sub s Allowed: subs OK Medic ationGen ericName : nortript yline Not Available Not Available Not Available cyanocoba gladys (vit B-12) 1,000 mcg/mL injection solution 1000 MCG INTRAMUS CULARLY EVERY 4 WEEKS active Not Available Not Available No t Available mirtazapi ne 30 mg tablet 2017 active Medicati on ID: 074416 D uration Value: 90 Brand Name: mirtazap [...] mg capsule 2017 active Medicati on ID: [id number] D uration Value: 10 Brand Name: gabapent in Send Method: E-Prescr ibed Sub s Allowed: subs OK Speci al Instruct ion: TK 1 C PO TID QHS FOR 10 DAYS Med [facility] gabapent in Not Available Not Available [...] tended release 2017 active Medicati on ID: [id number] D uration Value: 30 Brand Name: budesoni de Send Method: E-Prescr ibed Sub s [...] mg tablet 2017 active Medicati on ID: 475153 D uration Value: 90 Brand Name: ropiniro le Send Method: E-Prescr ibed Sub s Allowed: subs OK Speci al Instruct ion: TK 1 T PO QD Medic ationGen ericName : ropiniro le Not Available Not Available Not Available esomepraz ole magnesium 20 mg capsule,d elayed release 2017 active Medicati on ID: 612163 D uration Value: 90 Brand Name: esomepra [...] ion: TK 1 T PO QD Medic [facility] ericName : alprazol am Not Available Not Available Not Available rosuvasta tin 5 mg tablet GIVE 5 MG ORALLY DAILY active Not Available Not Available No t Available chlorhexi dine gluconate 0.12 % mouthwash 2017 active Medicati on ID: 383191 D uration Value: 28 Brand Name: chlorhex idine gluconat e Send Method: E-Prescr ibed Sub s Allowed: subs OK Medic [facility] ericName : chlorhex idine gluconat e Not Available Not Available Not Available Eliquis 5 mg tablet TAKE 1 TABLET BY MOUTH TWICE A DAY active Not Available Not Available No t Available Vitals Date Recorded Body height Body mass index (BMI) Body weight Provider Name and Address Organization Details Last Updated DateTime 12/29/2023 152.4 cm 22.5 kg/m2 43181.12 g Anusha Bunch [facility] 12/29/2023 13:25:38 Date Recorded Body height Body mass index (BMI) Body weight Provider Name and Address Organization Details Last Updated DateTime 04/27/2024 152.4 cm 19.7 kg/m2 41603.83 g Marisol Rose [facility] 04/27/2024 10:55:46 Social History None recorded. Functional Status None recorded. Mental Status None recorded. Family History Nothing Reported. Medical History No medical history recorded. Gynecological HistoryNo gynecological history recorded. Obstetrics History GPAL:G 0 P 0 0 0 0 Past Encounters Encounter ID Performer Location Encounter Start Date Encounter Closed Date Diagnosis/Indication Diagnosis SNOMED-CT Code Diagnosis ICD10 Code Diagnosis Note [id number] RAQUEL LAWRENCE MD [facility] [address] [place] [id number] 12/29/2023 13:17:17 12/29/2023 13:45:24 Impacted cerumen of bilateral ears [id number] 711601 H61.23 [id number] ANA LO MD [facility] [address] [place] [id number] 04/27/2024 10:43:24 04/27/2024 11:02:42 Impacted cerumen of bilateral ears 1274417460 061865 H61.23 Health Concerns Section Related Observation LastModified by Organization Detai ls LastModified Time None Recorded Concern Status LastModified by Organization Details LastModified Time None Recorded Advance Directives Directive None Recorded Payers Encounter Date Sequence Insurance Name Policy Number Policy Oscar Covered Member ID Oscar Member ID Guarantor Name 12/29/2023 2 [employer] - GIC INDEMNITY PLAN (MEDICARE SUPPLEMENT) [id number] Shayan A Soja [id number] Lynda D Soja 12/29/2023 1 [place] Lynda D Soja [id number] Lynda D Soja 04/27/2024 2 [employer] - [employer] INDEMNITY PLAN (MEDICARE SUPPLEMENT) [id number] Shayan A Soja [id number] Lynda D Soja 04/27/2024 1 [place] Lynda D Soja [id number] Lynda D Soja Notes Date Note Type Note Provider Name and Address Organization Details Recorded Time 12/29/2023 text/html 78-year-old female presents for evaluation of the ears. Denies change in hearing, otalgia, and otorrhea. No Q-tip use. RAQUEL LAWRENCE MD [address] [place] [address], [phone], [facility] - [facility] 12/29/2023 17:02:11 04/27/2024 text/html 79-year-old female presents for cerumen removal. No acute issues since her last visit. ANA LO MD [address] [place] [address],[address], [address], [facility] - [facility] 04/28/2024 07:28:04 OBGyn Episode No OBEpisode recorded.
--- OUTSIDE RECORDS SUMMARY | 2024-05-14 15:16 | XMS_ITS | Clinical Summary ---
Author Organization [facility] Address [address] [place] [address] Care Team Providers Care Customer Account Technician Name Role Phone Jia Parmar MD Primary Care Provider [phone] Social History Tobacco Use Types Packs/Day Years Used Date Smoking Tobacco: Never Assessed Sex and Gender Information Value Date Recorded Sex Assigned at Not on file Gender Identity Not on file Sexual Orientation Not on file Job Start Date Occupation Industry Not on file Not on file Not on file Plan of Treatment Health Maintenance Due Date Last Done Comments Hepatitis C Screening 1945 COVID-19 Vaccine (#1) 1945 Depression Screening 1957 Preventative Health Evaluation 1963 DTap / Tdap / Td (1 - Tdap) 01/13/1964 Shingrix-Zoster Vaccine (1 of 2) 1995 Fall Risk Assessment 2010 Osteoporosis Screening (DEXA Scan) 2010 Pneumococcal Vaccine (1 of 1 - PCV) 2010 RSV Adult > 60+ Yrs or Pregn ant (1 - 1-dose 75+ series) 01/13/2020 Influenza Vaccine (#1) 2023 Hepatitis B Vaccines Aged Out No long er eligible based on patient's age to complete this topic RSV Ped < 20 months Aged Out No longe r eligible based on patient's age to complete this topic Care Teams Customer Account Technician Relationship Specialty Start Date End Date Jia Parmar MD [address] [facility] [place] [address] PCP - General Laborer [employer] 12/09/18
--- OUTSIDE RECORDS SUMMARY | 2024-05-14 15:16 | XMS_ITS | Clinical Summary ---
Author Organization [facility] Address [address] [place] [address] Care Team Providers Care Box Press Operator Name Role Phone Pcp, No Primary Care Provider Unavailabl e Allergies Active Allergy Reactions Criticality Noted Date Comments Albuterol Shortness Of Breath High 03/16/2020 Cephalexin Itching Low 03/16/2020 Tilactase Diarrhea,GI Intolerance/Nausea/Vomiting Low 03/16/2020 Gluten Diarrhea,GI Intolerance/Nausea/Vomiting Low 03/16/2020 Latex Rash/Dermatitis Low 03/16/2020 Nitrofurantoin Anaphylaxis High 03/16/2020 Other Shortness Of Breath,Cough High 03/16/2020 perfumes Sulfa Antibiotics Itching,GI Intolerance/Nausea/Vomiting Low 03/16/2020 Medications Medication Sig Dispensed Refills Start Date End Date Status rosuvastatin (CRESTOR) 5 MG tablet Take 5 mg by mouth daily. At night Active levothyroxine (SYNTHROID, LEVOTHROID) 50 MCG tablet Take 5 mcg by mouth daily on an empty stomach. Takes M- Active latanoprost (XALATAN) 0.005 % ophthalmic solution Administer 1 drop to both eyes nightly. Active timolol (BETIMOL) 0.5 % ophthalmic solution Administer 1 drop to both eyes daily. Active rivaroxaban (XARELTO) 20 MG tablet Take 20 mg by mouth daily. Takes in the morning Active mirtazapine (REMERON) 45 MG tablet Take 45 mg by mouth nightly. Active rOPINIRole (REQUIP) 5 MG tablet Take 5 mg by mouth nightly. Active gabapentin (NEURONTIN) 600 MG tablet Take 600 mg by mouth 3 (three) times a day. Active budesonide (ENTOCORT EC) 3 MG 24 hr capsule Take 3 mg by mouth 2 (two) times a day. Morning and night Active traZODone (DESYREL) 50 MG tablet Take 50 mg by mouth nightly. Active calcium carbonate-vitamin D 600 mg-400 unit tablet Take 1 tablet by mouth 2 (two) times a day. Active Multiple Vitamin tablet Take 1 tablet by mouth daily. Active famotidine (PEPCID) 20 MG tablet Take 20 mg by mouth 2 (two) times a day. Active OMEprazole (PriLOSEC) 40 MG capsule Take 40 mg by mouth every morning before breakfast. Active amLODIPine (NORVASC) 5 MG tablet Take 5 mg by mouth daily. Twice a day Active acetaminophen (TYLENOL) 500 MG tabletIndications: Infection of prosthetic knee joint, initial encounter Take 2 tablets (1,000 mg total) by mouth 3 times daily (every 8 hours) as needed for mild pain or fever. 60 tablet 03/21/2020 Active HYDROmorphone (DILAUDID) 2 MG tabletIndications: Infection of prosthetic knee joint, initial encounter Take 1-2 tablets (2-4 mg total) by mouth every 4 (four) hours as needed for moderate pain or severe pain. Max Daily Amount: 24 mg 42 tablet 03/21/2020 Active senna (SENOKOT) 8.6 MG Tab tabletIndications: Infection of prosthetic knee joint, initial encounter Take 2 tablets by mouth daily as needed for constipation. 60 tablet 03/21/2020 Active methocarbamol (ROBAXIN) 500 MG tabletIndications: Infection of prosthetic knee joint, initial encounter Take 1 tablet (500 mg total) by mouth 3 (three) times a day as needed for muscle spasms. 42 tablet 03/21/2020 Active vancomycin (VANCOCIN) 125 MG capsuleIndications :C. difficile colitis Take 1 capsule (125 mg total) by mouth 2 (two) times a day. 60 capsule 11 12/10/2023 12/04/2024 Active cefpodoxime (VANTIN) 200 MG tabletIndications: C. difficile colitis,Infection of prosthetic knee joint, initial encounter Take 1 tablet (200 mg total) by mouth daily. 90 tablet 2 03/29/2024 Active Active Problems Problem Noted Date Diagnosed Date Benign essential HTN 03/17/2020 HLD (hyperlipidemia) 03/17/2020 Glaucoma 03/17/2020 Type 2 diabetes mellitus wit hout complication, without long-term current use of insulin 03/17/2020 GERD (gastroesophageal reflux disease) Acquired hypothyroidism 03/17/2020 Depression 03/17/2020 Restless leg syndrome 03/17/2020 Infection of prosthetic knee joint 03/16/2020 Encounters Date Type Department Care Team Description 03/27/2024 Refill [facility] Department of Infectious Disease [place] [address] [place] [address] Emir Cowan MD C. difficile colitis; Infection of prosthetic knee joint, initial encounter from Last 3 Months Social History Tobacco Use Types Packs/Day Years Used Date Smoking Tobacco: Never Smokeless Tobacco: Never Sex and Gender Information Value Date Recorded Sex Assigned at Not on file Gender Identity Not on file Sexual Orientation Not on file Last Filed Vital Signs Vital Sign Reading Time Taken Comments Blood Pressure 141/65 03/21/2020 6:01 AM EST Pulse 100 03/21/2020 6:37 AM EST Temperature 38.2 ??C (100.8 ??F) 03/21/2020 6:[address] Respiratory Rate 18 03/21/2020 6:01 AM EST Oxygen Saturation 92% 03/21/2020 6:01 AM EST Inhaled Oxygen Concentration - - Weight 52.2 kg (115 lb) 03/16/2020 7:33 PM EST Height 152.4 cm (5') 03/16/2020 7:33 PM EST Body Mass Index 22.46 03/16/2020 7:33 PM EST Plan of Treatment Health Maintenance Due Date Last Done Comments Hepatitis C Virus Screening 1945 Foot Exam 1955 Lipid Panel 1955 Ophthalmology Exam 1955 Microalbumin/Creatinine Ratio Urine 1963 DTaP/Tdap/Td Vaccines (1 - Tdap) 01/13/1964 Pneumococcal Vaccines 50+ (1 of 2 - PCV) 01/13/1964 Zoster (Shingles) Vaccine (1 of 2) 1995 DXA Bone Density (Females,Ages 65 and older) 2010 RSV Vaccine 60 years and older and Patients (1 - 1-dose 75+ series) 01/13/2020 Hemoglobin A1C 09/13/2020 03/16/2020 Creatinine with GFR 03/19/2021 03/19/2020, 03/18/2020, 03/17/2020, Additional history exists COVID-19 Vaccine ( season) 2024 11/20/2023 Influenza Vaccine Completed 11/20/2023, 12/12/2012 Hepatitis B Vaccines Aged Out No long er eligible based on patient's age to complete this topic Medical Devices Implanted Type Area Mechanical Engineering Professor Device Identifier Shelf Expiration Date Model / Serial / Lot [id number] Insert Articular 3-4 C-H Std [id number] Knee Net Mold Uhmwpe - [id number] Implanted:Qty: 1 on 03/17/2020 by Tray Duncan MD at [facility] Joint Prosthesis Right: Knee [employer] [id number] 04/02/2027 [id number] / / [id number] Oral Implanted:Qty: 3 Oral Tooth Procedures Procedure Name Priority Date/Time Associated Diagnosis Comments BASIC METABOLIC PANEL Routine 03/19/2020 4:58 AM EST HEMOGLOBIN A1C WITH ESTIMATED AVERAGE GLUCOSE STAT 03/16/2020 8:41 PM EST from Last 3 Months or Most Recently Relevant to Health Maintenance Results * (ABNORMAL) Basic Metabolic Panel (AM) (03/19/2020 4:58 AM EST) Glucose 116(H) 65 - 99 mg/dL [facility] Comment:Fasting: <100 mg/dL, Non-Fasting: <200 mg/dL (ADA 2005) Blood Urea Nitrogen (BUN) 14 8 - 21 mg/dL [facility] Creatinine 0.7 0.4 - 1.1 mg/dL [facility] eGFR >60 >59 [facility] Comment:MDRD in mL/min/1.73 sq meters. GFR - >60 >59 [facility] Comment:MDRD in mL/min/1.73 sq meters. Sodium 136 136 - 145 mmol/L [facility] Potassium 4.1 3.4 - 5.3 mmol/L [facility] Chloride 95(L) 98 - 107 mmol/L [facility] CO2 31 22 - 33 mmol/L [facility] Anion Gap 10 7 - 17 [facility] Calcium 9.5 8.7 - 10.5 mg/dL [facility] BUN/Creatinine Ratio 20 10.0 - 25.0 Ratio [facility] Blood specimen (specimen) Heel structure / Unknown 03/19/2020 4:58 AM EST 03/19/2020 6:11 AM EST Dolores Sanabria MD LAB BLOOD ORDERABLES [facility] * (ABNORMAL) Hemoglobin A1c with Estimated Average Glucose (03/16/2020 8:41 PM EST) Hemoglobin A1C 5.7(H) <5.7 % [facility] Comment: A1c% ? Interpretation 5.7 - 6.0 ?Increase risk of diabetes 6.1 - 6.4 ?Higher risk of diabetes > or = 6.5 ?? 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
--- OUTSIDE RECORDS SUMMARY | 2024-05-14 15:17 | XMS_ITS ---
Author Organization [facility] Address [address] [facility] [place] [address] Care Team Providers Care Electronic Publications Specialist Name Role Phone Jia Parmar MD Primary Care Provider UnavailMelina Acharya Unavailable [phone] Alexandre Williamson Unavailable [phone] Allergies Allergen (clinical drug ingredient) Drug/Non Drug [...] 024 Encounters Encounter Location Date Provider Diagnosis [facility] [place] [address] [place] [address] 11/13/2023 Alexandre Williamson Pain in right toe(s) [...] Reason: Provider Name:Melina chowdhury, 06/24/2024 09:00:00 AM, [address] [place] [address], [phone], Procedure Notes * Category Sub-Category Detail Notes [...] as necessary. Patient chooses, no pharmaceutical tx (49566) Keratoma Treatment Parring or Cutting o f Benign Hyperkeratotic Lesion(s) 83817 ( >4 Lesions) - The Benign hyperkeratotic lesions, as described above were pared, and/or cut utilizing a sterile #15 blade, tissue nippers, and/or dremel Progress Notes * Lynda DRIVER DDOB:1945 ( 79 yo F)Acc No.[id number]:11/13/2023 Progress Note Patient:?Lynda DRIVER Provider:?Alexandre Williamson DPM :1945???Age:78 Y???Sex:Female D ate:11/13/2023 Address:[address] [place] [address] [phone] Pcp:Jia Parmar MD Subjective: * Chief Complaints: [...] housework, gardening. ?Marital status: . ?Occupation: retired- [employer] * Medications:?TakinghydrALAZI NE HCl Spironolactone 25 MG [...] Tablet 1 tablet Orally Once a day Diclofenac gel, used with PSK cream up to 4 times a day eliquis Gabapentin 300 Capsule 1 CAPSULE BEFORE BEDTIME THREE TIMES A DAY ORALLY 30 DAYS Multivitamin Adults 50+ Tablet Orally Prilosec Synthroid 50 MCG Tablet 1 tablet Orally Once a day Timolol Hemihydrate 0.5 % Solution 1 drop into affected eye Ophthalmic Once a day Vitamin D3 Xalatan 0.005 % Solution 1 drop into affected eye in the evening Ophthalmic Once a day Extra Depth Diabetic Shoes with 3 Pair Custom heat-molded multi-density innersoles for 1 year Dx: Taking hydrALAZINE HCl Taking Spironolactone 25 MG Tablet [...] 1 tablet Orally Once a day Taking Diclofenac gel, used with PSK cream up to 4 times a day Taking eliquis Taking Gabapentin 300 Capsule 1 CAPSULE BEFORE BEDTIME THREE TIMES A DAY ORALLY 30 DAYS Taking Multivitamin Adults 50+ Tablet Orally Taking Prilosec Taking Synthroid 50 MCG Tablet 1 tablet Orally Once a day Taking Timolol Hemihydrate 0.5 % Solution 1 drop into affected eye Ophthalmic Once a day Taking Vitamin D3 Taking Xalatan 0.005 % Solution 1 drop into affected eye in the evening Ophthalmic Once a day Taking Extra Depth Diabetic Shoes with 3 Pair Custom heat-molded multi-density innersoles for 1 year Dx: Not-Taking/PRNBudesonide 3 MG Capsule Delayed Release Particles as [...] Particles as directed Orally Once a day Not- Taking/PRN oxyCODONE HCl 5 MG Tablet 0.5 tablet [...] 5.0 * Examination: ???Ophthalmology Referral: ?DIABETES EYE EXAM?Diabetic Retinopathy Screening:?Yes 11/23 ?Findings of Diabetic Eye Exam:?no retinopathy?General Examination: ?GENERAL APPEARANCE:?pleasant, alert, well nourished, well developed, well hydrated, with good attention to hygene/body habitus, and in no acute distress.?ORIENTED:?person,place, and time.?FOOT EXAM:?Lower Extremity Neurological Exam performed:?Yes ?Visual exam of foot performed:?Yes ?Date?11/13/2023 ?Sensory testing performed:?sensations diminished ?Sensory and motor testing performed:?sensations diminished ?Pedal pulse taking performed:?1+?Neurological: ?SENSORY:?Neurological exam demonstrates, reduced vibration sensation, 5.07 monofilament test performed at plantar aspects of 5 varied sites per foot shows sensation, reduced , B/L, Neurological exam demonstrates pop t9.?Vascular: ?DP PULSES (B):? 0/4, B/L.?PT PULSES (B):? 1/4, B/L.?CAPILLARY FILL TIME:?3 secs. per digit, B/L.?TROPHIC CONDITION-TEXTURE/ELASTICITY/TURGOR/HAIR GROWTH (B):?decreased, B/L , sparce hair growth.?TEMPERTURE GRADIENT (C):?decreased, cool to cool, proximal to distal, B/L.?PIGMENTATION:?normal, B/L.?EDEMA (C):? 2/4, Right 5th toe.?TELANGECTASIA:?absent.?VARICOSITIES:?absent.?Dermatologic: ?SKIN FINDINGS:? Skin [...] Assessment: 1.?Pain in right toe(s) - M7 9.674???2.?Other hammer toe(s) (acquired), right foot - M20.41 (Primary)???3.?Type 2 diabetes mellitus with diabetic polyneuropathy - E11.42???4.?Exostosis of right foot - M89.8X7???5.?Atherosclerosis of artery of both lower extremities - I70.203???6.?Tinea unguium - B35.1???7.?Pain in left toe(s) - M79.675??? Plan: * Treatment: * Procedures:?Debride Nail 6-10:?Nail debridement?Nail debridement performed extensively to reduce/remove overall nail length and girth, subungual debris, and necrotic tissue, by manual and electrical means with use of a nail nipper and/or dremel, to more viable healthy nail plate or bed tissue 6-10. Silver nitrate used for any petechial bleeding as necessary. Patient chooses, no pharmaceutical tx (70384).?Keratoma Treatment:?Parring or Cutting of Benign Hyperkeratotic Lesion(s)?85000 ( >4 Lesions) - The Benign hyperkeratotic lesions, as described above were pared, and/or cut utilizing a sterile #15 blade, tissue nippers, and/or dremel.? * Procedure Codes:?90388 TRIM SKIN LESIONS, OVER 4, Modifiers: XS 40233 DEBRIDE NAIL, 6 OR MORE, Modifiers: XS * Follow Up:?3 Months, 2 Month s * Images: * Sign off status: Completed true * Provider:?Alexandre Williamson DPM Date:? 024 Generated for Anisha stephen/Jaspal/eTransmitting on:?05/14/2024 03:16 PM EDT History and Physical [...] hygene/body habitus, and in no acute distress FOOT EXAM: Lower Extremity Neurological Exa m performed:: Yes Visual exam of foot performed:: Yes Date: 11/13/2023 Sensory testing performed:: sensations d iminished Sensory and motor testing performed:: se nsations diminished Pedal pulse taking performed:: 1+ ORIENTED: person,place, and ti me Ophthalmology Referral [...]
== END 2024-05-14 14:30 | disposition home or self-care (01) ==
LOC: HO.HNS 13:41
PROVIDERS: PCP Internal Medicine; Visit Provider Physician Assistant
DX: M96.1 Postlaminectomy syndrome, not elsewhere classified (principal)
CPT/HCPCS: 99213

== ENCOUNTER → 2024-05-14 13:40 | Outpatient (BNVA) | payer MEDICARE, OTHER, SELFPAY | PROVIDERS: PCP Internal Medicine; Visit Provider Physician Assistant | DX: M96.1 Postlaminectomy syndrome, not elsewhere classified (principal) | CPT/HCPCS: 99212 ==

== ENCOUNTER 2024-07-20 07:16 | Outpatient (REF) | payer MEDICARE, OTHER, SELFPAY ==
--- OUTSIDE RECORDS SUMMARY | 2024-07-20 07:18 | XMS_ITS | Clinical Summary ---
Author Organization [facility] Address [address] [place] [address] Care Team Providers Care Sand Buffer Name Role Phone Pcp, No Primary Care Provider Unavailabl e Allergies Active Allergy Reactions Criticality Noted Date Comments Albuterol Shortness Of Breath High 03/16/2020 Cephalexin Itching Low 03/16/2020 Tilactase Diarrhea,GI Intolerance/Nausea/Vomiting Low 03/16/2020 Gluten Diarrhea,GI Intolerance/Nausea/Vomiting Low 03/16/2020 Latex Rash/Dermatitis Low 03/16/2020 Nitrofurantoin Anaphylaxis High 03/16/2020 Other Shortness Of Breath,Cough High 03/16/2020 perfumes Sulfa Antibiotics Itching,GI Intolerance/Nausea/Vomiting Low 03/16/2020 Medications rosuvastatin (CRESTOR) 5 MG tablet Take 5 mg by mouth daily. At night Active levothyroxine (SYNTHROID, LEVOTHROID) 50 MCG tablet Take 5 mcg by mouth daily on an empty stomach. Takes M-F Active latanoprost (XALATAN) 0.005 % ophthalmic solution [...] 50 mg by mouth nightly. Active calcium carbonate-vitam in D 600 mg-400 unit tablet Take 1 [...] a day Active acetaminophen (TYLENOL) 500 MG tabletIndicatio ns:Infection of prosthetic knee joint, initial encounter Take 2 tablets (1,000 mg total) by mouth 3 times daily (every 8 hours) as needed for mild pain or fever. 60 tablet 1 Active HYDROmorphone (DILAUDID) 2 MG tabletIndicatio ns:Infection of prosthetic knee joint, initial encounter Take 1-2 tablets (2-4 mg total) by mouth every 4 (four) hours as needed for moderate pain or severe pain. Max Daily Amount: 24 mg 42 tablet 1 Active senna (SENOKOT) 8.6 MG Tab tabletIndicatio ns:Infection of prosthetic knee joint, initial encounter Take 2 tablets by mouth daily as needed for constipation. 60 tablet 1 Active methocarbamol (ROBAXIN) 500 MG tabletIndicatio ns:Infection of prosthetic knee joint, initial encounter Take 1 tablet (500 mg total) by mouth 3 (three) times a day as needed for muscle spasms. 42 tablet 1 Active vancomycin (VANCOCIN) 125 MG capsuleIndicati ons:C. difficile colitis Take 1 capsule (125 mg total) by mouth 2 (two) times a day. 60 capsule 11 4 12/05/19 25 Active cefpodoxime (VANTIN) 200 MG tabletIndicatio ns:C. difficile colitis,Infecti on of prosthetic knee joint, initial encounter Take 1 tablet (200 mg total) by mouth daily. 90 tablet 2 5 Active Active Problems Problem Noted Date Diagnosed Date Benign essential HTN 03/17/2020 HLD (hyperlipidemia) 03/17/2020 Glaucoma 03/17/2020 Type 2 diabetes mellitus wit hout complication, without long-term current use of insulin 03/17/2020 GERD (gastroesophageal reflux disease) Acquired hypothyroidism 03/17/2020 Depression 03/17/2020 Restless leg syndrome 03/17/2020 Infection of prosthetic knee joint 03/16/2020 Social History Tobacco Use Types Packs/Day Years Used Date Smoking Tobacco: Never Smokeless Tobacco: Never Comments Unknown Sex and Gender Information Value Date Recorded Sex Assigned at Not on file Legal Sex Female 6:34 PM EST Gender Identity Not on file Sexual Orientation [...] Vaccine ( season) 2024 11/20/2023 Influenza Vaccine 10/01/2024 11/20/2023, 12/12/2012 Hepatitis B Vaccines Aged Out No long er eligible based on patient's age to complete this topic Medical Devices Implanted Type Area Abstract Checker Device Identifier Shelf Expiration Date Model / Serial / Lot [id number] Insert Articular 3-4 C-H Std [id number] Knee Net Mold Uhmwpe - [id number] Implanted:Qty: 1 on 03/17/2020 by rTay Duncan MD at [facility] Joint Prosthesis Right: Knee [employer] [id number] 10004/02/2027 [id number] / / [id number] Oral Implanted:Qty: 3 Oral Tooth Procedures Procedure [...] 4:58 AM EST 03/19/2020 6:11 AM EST us Dolores Sanabria MD LAB BLOOD ORDERABLES Final Resu lt HOSPITAL LAB * (ABNORMAL) Hemoglobin A1c with [...] 8:41 PM EST 03/16/2020 9:00 PM EST us Catherine STOKES LAB BLOOD ORDERABLES Final Result HOSPITAL LAB from Last 3 Months or Most Recently Relevant to Health Maintenance Insurance [place] [id number] [facility] [employer] MEDICARE PART A & B [facility] [employer] Advance Directives Documents on File Type Date Recorded 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
--- OUTSIDE RECORDS SUMMARY | 2024-07-20 07:18 | XMS_ITS ---
Author Organization [facility] Address [address] [place] [address] Care Team Providers Care Summer Associate Name Role Phone Jia Parmar MD Primary Care Provider Melina Dunne [phone] REASON FOR VISIT QMB? Encounters Encounter Location Date Provider Diagnosis [address] [address] 06/24/2024 Melina Booth Plan Of Treatment Next Appt Details Provider Name:Melina chowdhury, 09/22/2024 03:00:00 PM, [address] [place] [address], [phone], Progress Notes * VILLA Lynda DDOB:1945 ( 79 yo F)Acc No.[id number]:06/24/2024 Patient:?Irasema LESLIEramila Guerin :1945???Age:79 Y???Sex:Female Address:[address] [place] [address] [place], [address] * true * Date:? Generated for Printi ng/Faxing/eTransmitting on:?07/20/2024 07:18 AM EDT
--- OUTSIDE RECORDS SUMMARY | 2024-07-20 07:18 | XMS_ITS | Patient Health Record ---
Author Organization [facility] Address [address] [facility] [place] [address] Care Team Providers Care Tax Accounting Manager Name Role Phone Jia aPrmar MD Primary Care Provider UnavailMelina Acharya Unavailable [phone] Alexandre Williamson Unavailable [phone] Allergies Allergen (clinical drug ingredient) Drug/Non Drug [...] Orally Once a day Active Xopenex Not-Taking amLODIPine Besylate 5 MG 1 tablet Orally bid Active Antibiotic Active Ammonium Molybdate A ctive Caltrate 600+D 600-800 MG-UNIT 1 tablet Orally Twice a day Active Timolol Maleate 0.5 % Ophthalmic Not-Taking Qvar [...] 30 Not-Taking Budesonide ER 20 mg Not-Taking Budesonide 3 MG as directed Orally [...] innersoles for 1 year Dx: 10/23/2016 Not-Taking Aerochamber Plus Not -Taking Ammonium Lactate 12 % 1 application Externally to affected areas of dry skin to feet except for between the toes Twice a day for 30 days Active hydrALAZINE HCl Not- Taking Diclofenac gel, used with PSK cream up to 4 times a day Not-Taking Vitamin D3 Not-Takin g Gabapentin 300 1 CAPSULE BEFORE BEDTIME THREE TIMES A DAY ORALLY 30 DAYS for 30 Active Cyanocobalamin B12 injection 1 X per M Not-Taking Multivitamin Adults 50+ Orally Active Fish Oil 1000 mg 1 capsule Orally Once a day Not-Taking Prilosec Active Esomeprazole Magnesium Not-Taking Synthroid 50 MCG 1 tablet Orally Once a day Active Timolol Hemihydrate 0.5 % 1 drop into affected eye Ophthalmic Once a day Active Xalatan 0.005 % 1 drop into affected eye in the evening Ophthalmic Once a day Active Extra Depth Diabetic Shoes with 3 Pair Custom heat-molded multi-density innersoles for 1 year Dx: Active Gabapentin 300 MG 1 capsule Orally Three times a day for 30 day(s) Not-Taking Physical Therapy . . . 2-3x/week for 3-4 weeks 04/10/2016 Not-Taking Physical Therapy . . . 2-3x/week for 3-4 weeks 07/08/2016 Not-Taking Physical Therapy . . . 2-3x/week for 3-4 weeks Not-Taking Clindamycin HCl 300 MG 1 capsule Orally every 6 hrs for 5 days PRN for DENTIST 06/10/2016 Active Colchicine 0.6 MG 1 tablet Orally Once a day for 30 day(s) 05/02/2016 Not-Taking Crestor 5 MG 1 tablet Orally Once a day Active Lunesta 3 MG 1 tablet immediately before bedtime Orally Once a day Not-Taking eliquis Active Benzonatate 200 MG 1 capsule Orally Three times a day Not-Taking Immunizations Vaccine Route Administration Date Status Comme nts COVID-19 Pfizer BioNTech Vaccine Unknown 03/26/2021 Administered 1st 04/14/20 2nd 05/03/20 3rd 12/03/20 Influenza Unknown 12/13/2021 Administered Influenza Unknown 11/01/2022 Administered Pneumococcal Unknown 11/02/2019 Administered Social History Tobacco Use: Social History Observation Description Date Details (start date - stop date) Never Smoker NA - NA Alcohol Screen Question Answer Notes Did you have a drink containing alcohol in the p ast year? No Points 0 Interpretation Negative Tobacco use other than smoking: Question Answer Notes Are you an other tobacco user? No Tobacco Control (Standard) Question Answer Notes Tobacco use: Nonsmoker Additional Findings: Tobacco non-user Current no nsmoker Problems Problem Type SNOMED Code ICD Code Onset Dates Problem Status W/U Status Risk Notes Problem Acquired hammer toe of left foot (4398280406451012) Other hammer toe(s) (acquired), left foot (M20.42) Active confirmed Problem Polyneuropathy due to diabetes mellitus type I (824236722) 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 Problem Localized, primary osteoarthritis of the ankle and/or foot (215066171) Primary osteoarthritis, right ankle and foot (M19.071) Active confirmed Problem Localized, primary osteoarthritis of the ankle and/or foot (817238411) Primary osteoarthritis, left ankle and foot (M19.072) Active confirmed Problem Acquired hammer toe of right foot (0841772176580109) Other hammer toe(s) (acquired), right foot (M20.41) Active confirmed Problem Polyneuropathy due to type 2 diabetes mellitus (875725081) Type 2 diabetes mellitus with diabetic polyneuropathy (E11.42) Active confirmed Problem Primary gout (15257524) Idiopathic gout, right ankle and foot (M10.071) Active confirmed Problem Primary gout (38558398) Idiopathic gout, left ankle and foot (M10.072) Active confirmed Problem 87250432448465813 Atherosclerosi s of artery of both lower extremities (I70.203) Active confirmed Vital Signs Blood pressure diastolic 60 mm Hg 06/24/2024 Height 5 ft 0 in in 06/24/2024 Blood pressure systolic 120 mm Hg 06/24/2024 Weight 111 lbs 06/24/2024 BMI 21.68 kg/m2 06/24/2024 Procedures Procedure Date Ordered Date Performed Result Body Sit e 95036-VYLGKHF NAIL, 6 OR MORE 02/18/2024 N/A 56853-QNWR SKIN LESIONS, OVER 4 02/18/2024 N/A 97521-RIRNRVE NAIL, 6 OR MORE 06/24/2024 N/A 92476-BMWE SKIN LESIONS, OVER 4 06/24/2024 N/A Encounters Encounter Location Date Provider Diagnosis [facility] [address] [place] [address] 08/21/2023 Alexandre Williamson Pain in right toe(s) M79.674 ; Other hammer toe(s) (acquired), right foot M20.41 ; Type 2 diabetes mellitus with diabetic polyneuropathy E11.42 ; Exostosis of right foot M89.8X7 ; Atherosclerosis of artery of both lower extremities I70.203 ; Tinea unguium B35.1 and Pain in left toe(s) M79.[address] [address] 11/13/2023 Alexandre Williamson Pain in right toe(s) M79.674 ; Other hammer toe(s) (acquired), right foot M20.41 ; Type 2 diabetes mellitus with diabetic polyneuropathy E11.42 ; Exostosis of right foot M89.8X7 ; Atherosclerosis of artery of both lower extremities I70.203 ; Tinea unguium B35.1 and Pain in left toe(s) M79.[address] [address] 02/18/2024 Melina Booth Type 2 diabetes mellitus with diabetic polyneuropathy E11.42 ; Tinea unguium B35.1 and Xerosis of skin L85.[address] [address] 06/24/2024 Melina Booth Type 2 diabetes mellitus with diabetic polyneuropathy E11.42 ; Tinea unguium B35.1 ; Other hammer toe(s) (acquired), right foot M20.41 and Other hammer toe(s) (acquired), left foot M20.[address] [address] 06/24/2024 Melina Booth Assessments Encounter Date Diagnosis (ICD Code) Assessment Notes Treatment Notes Treatment Clinical Notes Section Notes 08/21/2023 Pain in right toe(s) (ICD-10 - M79.674) 11/13/2023 Pain in right toe(s) (ICD-10 - M79.674) 02/18/2024 Type 2 diabetes mellitus with diabetic polyneuropathy (ICD-10 - E11.42) 02/18/2024 Tinea unguium (ICD-10 - B35.1) 06/24/2024 Type 2 diabetes mellitus with diabetic polyneuropathy (ICD-10 - E11.42) 06/24/2024 Tinea unguium (ICD-10 - B35.1) 11/13/2023 Other hammer toe(s) (acquired), right foot (ICD-10 - M20.41) 08/21/2023 Other hammer toe(s) (acquired), right foot (ICD-10 - M20.41) 08/21/2023 Type 2 diabetes mellitus with diabetic polyneuropathy (ICD-10 - E11.42) 11/13/2023 Type 2 diabetes mellitus with diabetic polyneuropathy (ICD-10 - E11.42) 02/18/2024 Xerosis of skin (ICD-10 - L85.3) 06/24/2024 Other hammer toe(s) (acquired), right foot (ICD-10 - M20.41) Patient Educated with: DIABETIC FOOT CARE INSTRUCTIONS. pdf (DIABETIC FOOT CARE INSTRUCTIONS. pdf) 06/24/2024 Other hammer toe(s) (acquired), left foot (ICD-10 - M20.42) 11/13/2023 Exostosis of right foot (ICD-10 - M89.8X7) 08/21/2023 Exostosis of right foot (ICD-10 - M89.8X7) 08/21/2023 Atherosclerosis of artery of both lower extremities (ICD-10 - I70.203) 11/13/2023 Atherosclerosis of artery of both lower extremities (ICD-10 - I70.203) 11/13/2023 Tinea unguium (ICD-10 - B35.1) 08/21/2023 Tinea unguium (ICD-10 - B35.1) 08/21/2023 [...] X ray : Foot, right 3V 08/04/2017 32632-IEULXOK NAIL, 6 OR MORE 10/27/2017 25119-NVPRCHN NAIL, 6 OR MORE 08/04/2017 51748-SDKLJGW NAIL, 6 OR MORE 05/12/2017 05378-UKTGRPD NAIL, 6 OR MORE 06/24/2024 59414-SCDJKGA NAIL, 6 OR MORE 02/18/2024 23050-RFBEIOA NAIL, 6 OR MORE 2018 30312-MIPATIS NAIL, 6 OR MORE 03/10/2017 90205-QDBCJGK NAIL, 6 OR MORE 01/06/2017 41854-MSVZWEF NAIL, 6 OR MORE 10/23/2016 90768-UDBHROI NAIL, 6 OR MORE 07/25/2016 21106-RWLCLCL NAIL, 6 OR MORE 05/10/2016 52801-DBXPMEN NAIL, 6 OR MORE 02/14/2016 13105-HSNTWPI NAIL, 6 OR MORE 11/20/2015 31007-UMFNKBP NAIL, 6 OR MORE 07/05/2015 71088-Kxjlaknh Plate 07/27/2015 53445-Xutzdfqj Plate 05/29/2016 00723-Aerrrsaf Plate 06/10/2016 06349- Debride <25 sq cm 06/10/2016 71450- Debride <25 sq cm 09/25/2016 36908- Debride <25 sq cm 10/23/2016 33355- Debride <25 sq cm 08/14/2015 68624-ZWLX SKIN LESIONS, OVER 4 07/05/19 16 77176-DJCU SKIN LESIONS, OVER 4 11/20/19 16 24087-HGKK SKIN LESIONS, OVER 4 02/14/20 16 39326-PDRV SKIN LESIONS, OVER 4 05/11/19 17 78328-KCWJ SKIN LESIONS, OVER 4 10/24/19 17 45548-ZBND SKIN LESIONS, OVER 4 01/07/20 17 50252-SQGT SKIN LESIONS, OVER 4 05/13/19 18 57876-NPUR SKIN LESIONS, OVER 4 03/10/19 18 30527-NMSX SKIN LESIONS, OVER 4 02/13/20 21 51895-IEWC SKIN LESIONS, OVER 4 05/15/19 76302-NWLT SKIN LESIONS, OVER 4 02/18/20 24 65227-GDYO SKIN LESIONS, OVER 4 06/25/19 27558-JJSZ SKIN LESIONS, OVER 4 08/05/19 18 11504-XAJV SKIN LESIONS, OVER 4 01/13/20 18 57239-JQCP SKIN LESIONS, OVER 4 10/28/19 18 79823-NXHC SKIN LESIONS, OVER 4 04/13/19 19 85681-XHJG SKIN LESIONS, OVER 4 07/14/19 19 52635-BMDJ SKIN LESIONS, OVER 4 10/13/19 27267-SYGN SKIN LESIONS, OVER 4 01/12/20 76230-DMUK SKIN LESIONS, OVER 4 04/12/19 80136-SJQW SKIN LESIONS, OVER 4 07/14/19 39220-RXZL SKIN LESIONS, OVER 4 10/18/19 04708-VUZQ SKIN LESIONS, OVER 4 01/17/20 90236-YVBP SKIN LESIONS, OVER 4 04/24/19 36846-IBGC SKIN LESIONS, OVER 4 07/25/19 95582-TDZV SKIN LESIONS, OVER 4 11/21/19 68879-KTQW SKIN LESIONS, 2 TO 4 07/26/19 17 19934, Q2978-ZCNLC/INJECT, JOINT/BURSA 0 04/13/2018 88040, J0702- Neuroma/Injection 11/20/19 16 29980-Xrsdfvdao, Toes 05/10/2016 99681-Taultowpz, Toes 05/15/2016 10828-Meotbqyqh, Toes 03/12/2023 Next Appt Details Provider Name:Melina Wanda chowdhury, 09/22/2024 03:00:00 PM, [address] [facility], [place], [address], Insurance Providers Payer Name Payer Address Payer Phone Subscriber Number Group Number Insured Name Patient Relationship to Insured Coverage Start Date Coverage End Date Medicare National [employer] [address] [place] [address] [id number] Lynda Leslie Self - patient is the insured [employer]) [address] [place] [address] [id number] Shayan Leslie Spouse - patient is [...] out- couldn't walk 12/03/[address] [place] [facility] 5 days after sx ba ck blood clot / c.diff 03/2020 [facility]- pancolitis 02/13/19 [facility] X 3 Days, Pt sstates she fell, dx: c oncusion 05/18/2017
--- OUTSIDE RECORDS SUMMARY | 2024-07-20 07:18 | XMS_ITS ---
Author Organization [facility] Address [address] [facility] [place] [address] Care Team Providers Care Coding Quality Coordinator Name Role Phone Jia Parmar MD Primary Care Provider Melina Dunne Unavailable [phone] Allergies Allergen (clinical drug ingredient) Drug/Non Drug [...] Polyneuropathy due to diabetes mellitus type I ([id number]) 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 Vital Signs Height 5 ft 0 in in 02/18/2024 Weight 111 lbs 02/18/2024 BMI 21.68 kg/m2 02/18/2024 Blood pressure systolic 120 mm Hg 02/18/20 24 Blood pressure diastolic 65 mm Hg 024 Procedures Procedure Date Ordered Date Performed Result Body Sit e 19404-TGUHAIC NAIL, 6 OR MORE 02/18/2024 N/A 83678-YHCT SKIN LESIONS, OVER 4 02/18/2024 N/A Encounters Encounter Location Date Provider Diagnosis [facility] [address] [address] 02/18/2024 Melina Booth Type 2 diabetes mellitus [...] days Pending Test Test Name Order Date 02912-[id number] NAIL, 6 OR MORE 02/18/2024 70124-QFND SKIN LESIONS, OVER 4 02/18/20 24 Next Appt Details Follow Up: 3 Months, Reason: Provider Name:Melina chowdhury, 09/22/2024 03:00:00 PM, [address] [place] [address], [phone], Procedure Notes * Category Sub-Category Detail Notes [...] use of a nail nipper and/or dremel-type grinder mill operator, to a more viable healthy nail plate [...] to maintain effectiveness in symptomatic relief - 03695 Keratoma Treatment Parring or Cutting o f [...] instrumentation by the physician of record - 33435 Progress Notes * Lynda LESLIE DDOB:1945 ( 79 yo F)Acc No.[id number]:02/18/2024 Progress Note Patient:?VILLA Lynda D Provider:?Melina Booth DPM :1945???Age:79 Y???Sex:Female D ate:02/18/2024 Address:[address] [place], [place] [id number] Pcp:Jia Parmar MD Subjective: * Chief Complaints: [...] Days, Pt sstates she fell, dx: concusion 05/18/2017[facility]- pancolitis 02/13/19[place] [facility] 5 days after sx back blood clot / c.diff 03/2020[facility] ER- Fall - police told her to [...] ?Marital status: . 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 * Medications:?TakingSpironola ctone 25 MG Tablet [...] 4 times a day Not-Taking/PRN Vitamin D3 Not- Taking/PRN Budesonide 3 MG Capsule Delayed Release Particles [...] 5.0 * Examination: ???Ophthalmology Referral: ?DIABETES EYE EXAM?Procedure Performed:?No ?Findings of Diabetic Eye Exam:?no retinopathy?Neurological: ?SENSORY:? Neurological exam demonstrates, reduced light touch [...] use of a nail nipper and/or dremel-type grinder mill operator, to a more viable healthy nail plate [...] to maintain effectiveness in symptomatic relief - 21139.?Keratoma Treatment:?Parring or Cutting of Benign Hyperkeratotic Lesion(s)?(-57) [...] instrumentation by the physician of record - 18253.? * Procedure Codes:?37431 DEBRI DE NAIL, 6 OR MORE, Modifiers: XS 72555 TRIM SKIN LESIONS, OVER 4, Modifiers: XS [...] status: Completed true * Provider:?Melina Booth DPM Date:?1 04/20/2023 Generated for Anisha stephen/Jaspal/Deonitting on:?07/20/2024 07:18 AM EDT History and Physical Notes * HPI [...]
--- OUTSIDE RECORDS SUMMARY | 2024-07-20 07:18 | XMS_ITS | Clinical Summary ---
Author Organization [facility] Address [address] [place] [address] Care Team Providers Care Waste Collection Driver Name Role Phone Jia Parmar MD Primary Care Provider [phone] Social History Tobacco Use Types Packs/Day Years [...] age to complete this topic Care Teams Waste Collection Driver Relationship Specialty Start Date End Date Jia Parmar MD [address] [facility] [place] [address] PCP - General Advisor Advocate [employer] Founder 12/09/18
--- OUTSIDE RECORDS SUMMARY | 2024-07-20 07:19 | XMS_ITS | Clinical Summary ---
Author Organization [facility] Address [address] [place] [address] Phone Care Team Providers Care Incinerator Plant Laborer Name Role Phone Jia Parmar MD Primary Care Provider [phone] Surgical History Surgery Date Site/Laterality Comments HYSTERECTOMY [...] 2023 11/29/2021, 06/10/2021, 11/26/2020, Additional history exists Diabetes: Annual Urine Albumin-Creatinine Ratio (uACR) 02/21/2024 Diabetes: Blood Sugar Control Test (HGBA1C) 02/21/2024 Hypertension/CHF/CAD Annual BMP Blood Test 02/21/2024 03/19/2020 Influenza Vaccine (Season Ended) 2024 11/29/2022, 11/16/2021, 10/17/2020, Additional history exists DTaP,Tdap,and Td Vaccines (3 - Td or Tdap) 09/12/2030 09/12/2020, 11/20/2013 Osteoporosis Screening (Bone Density Screening) 11/19/2032 11/19/2022, 07/27/2020, 06/16/2018 Pneumococcal Vaccine: 50+ Years Completed 04/05/2014, 11/08/2013, 12/25/2012, Additional history exists Zoster Vaccines Completed 10/13/2017, 06/01, 12/25/2012 RSV Immunization Adult Patients Completed 11/27/2022 HIB Vaccines Aged Out No [...] age to complete this topic Meningococcal B Vaccine Aged Out No l onger eligible based on patient's age to complete this topic RSV Immunization Patients Under 20 months Aged Out No longer eligible based on patient's age to complete this topic Varicella Vaccines Aged Out No longer eligible based on patient's age to complete this topic Procedures Procedure Name Priority Date/Time Associated Diagnosis Comments [facility] DEXA AXIAL SKELETON Routine 11/19/2022 11:36 AM EDT Other specified disorders of bone density and structure, other site from Last 3 Months or Most Recently Relevant to Health Maintenance Results * [facility] DEXA AXIAL SKELETON (11/19/2022 11:36 AM EDT) Anatomical Region Laterality Modality Mammography 11/19/2022 8:53 AM EDT Narrative 11/19/2022 11:36 AM EDT [facility] Diagnostic Imaging Department [address] [place] [address] 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 Location/Status: ??SPDIMAM/REG CLI ? Mnemonic[facility]ing [facility] Ordering Physician: ??JOSE SAMUELS MD [facility] Dexa Axial Skeleton - 11/19/22920 Report Status:Signed [...] probability of hip fracture of 4.7%. 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 Code 10806 Dictating Physician: CLIVE BREWER MD Electronically Signed by: CLIVE BREWER MD Dic Date/Time: 11/19/22 1133 Sign date/Time: 11/19/22 1136 us Jose Samuels MD IMG BI PROCEDURES Final Result from Last 3 Months or Most Recently Relevant to Health Maintenance Insurance MEDICARE Member Subscriber Plan / Payer (Ef fective 2024-Present) Name:Heber Driver Apoorva Member ID:[id number] Relation to Subscriber:Self Name:Heber Driver Apoorva Subscriber ID:[id number] Payer ID:Not on file Group ID:Not on file Type:Medicare Address: [address] MEDICARE Member Subscriber Plan / Payer (Ef fective 2024-Present) Name:Heber Driver Apoorva Member ID:[id number] Relation to Subscriber:Self Name:Heber Driver Apoorva Subscriber ID:[id number] Payer ID:Not on file Group ID:Not on file Type:Medicare Address: [address] [place] - [place] [facility] Advance Directives Documents on File Type Date Recorded Patient Under Trimmer Expl anation Health Care Decision (hx) 03/16/2014 [...] (hx) 03/16/2014 AD CALDERON DIRECTIVE Care Teams Incinerator Plant Laborer Relationship Specialty Start Date End Date Jia Parmar MD [address] [place] [address] PCP - General Internal Medicine 02/20/24
--- OUTSIDE RECORDS SUMMARY | 2024-07-20 07:19 | XMS_ITS ---
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 Role Phone Jia Parmar MD Primary Care Provider Melina Dunne Unavailable [phone] Allergies Allergen (clinical drug ingredient) Drug/Non Drug [...] Active REASON FOR VISIT At Risk Footcare, Toe Irritation Medications Medication SIG (Take, Route, Frequency, Duration) Notes Start Date End Date Status Timolol Maleate 0.5 % Ophthalmic Not-Taking Qvar 40 MCG/ACT 1 puff Inhalation Twice a day Not-Taking traMADol HCl Not-Reji ing Physical Therapy 3-4x per week for 3-4 weeks Not-Taking Ultram 50 MG 1 tablet as needed Orally every 6 hrs for 5 days 02/19/2017 Not-Taking Gabapentin 300 MG 1 capsule before [...] 30 Not-Taking Budesonide ER 20 mg Not-Taking oxyCODONE HCl 5 MG 0.5 tablet [...] as directed Orally Once a day Not-Taking Ammonium Lactate 12 % 1 application Externally to affected areas of dry skin to feet except for between the toes Twice a day for 30 days Active hydrALAZINE HCl Not- Taking Diclofenac gel, used with PSK cream up to 4 times a day Not-Taking Vitamin D3 Not-Elieser Njsec Active Synthroid 50 MCG 1 tablet Orally Once a day Active Timolol Hemihydrate 0.5 % 1 drop into affected eye Ophthalmic Once a day Active Xalatan 0.005 % 1 drop into affected eye in the evening Ophthalmic Once a day Active Extra Depth Diabetic Shoes with 3 Pair Custom heat-molded multi-density innersoles for 1 year Dx: Active Gabapentin 300 1 CAPSULE BEFORE BEDTIME THREE TIMES A DAY ORALLY 30 DAYS for 30 Active Multivitamin Adults 50+ Orally Active Clindamycin HCl 300 MG 1 capsule Orally every 6 hrs for 5 days PRN for DENTIST 06/10/2016 Active Crestor 5 MG 1 tablet Orally Once a day Active eliquis Active Spironolactone 25 MG 1 tablet Orally Once a day Active amLODIPine Besylate 5 MG 1 tablet Orally bid Active Antibiotic Active Ammonium Molybdate A ctive Caltrate 600+D 600-800 MG-UNIT 1 tablet Orally Twice a day Active Cyanocobalamin B12 injection 1 X per M Not-Taking Fish Oil 1000 mg 1 capsule Orally Once a day Not-Taking Esomeprazole Magnesium Not-Taking Aerochamber Plus Not -Taking Benzonatate 200 MG [...] times a day for 30 day(s) Not-Taking Nortriptyline HCl 10 MG TK 1 C PO QD HS UTD Orally Not-Taking Social History Tobacco Use: Social History [...] Problem Acquired hammer toe of left foot ([id number]) Other hammer toe(s) (acquired), left foot (M20.42) Active confirmed Vital Signs Height 5 ft 0 in in 06/24/2024 Weight 111 lbs 06/24/2024 BMI 21.68 kg/m2 06/24/2024 Blood pressure systolic 120 mm Hg 06/25/19 25 Blood pressure diastolic 60 mm Hg 025 Procedures Procedure Date Ordered Date Performed Result Body Sit e 16174-RITTJQL NAIL, 6 OR MORE 06/24/2024 N/A 35741-MKQO SKIN LESIONS, OVER 4 06/24/2024 N/A Encounters Encounter Location Date Provider Diagnosis [facility] [address] [address] 06/24/2024 Melina Booth Type 2 diabetes mellitus with diabetic polyneuropathy E11.42 ; Tinea unguium B35.1 ; Other hammer toe(s) (acquired), right foot M20.41 and Other hammer toe(s) (acquired), left foot M20.42 Assessments Encounter Date Diagnosis (ICD Code) Assessment Notes Treatment Notes Treatment Clinical Notes Section Notes 06/24/2024 Type 2 diabetes mellitus with diabetic polyneuropathy (ICD-10 - E11.42) 06/24/2024 Tinea unguium (ICD-10 - B35.1) 06/24/2024 Other hammer toe(s) (acquired), right foot (ICD-10 - M20.41) Patient Educated with: DIABETIC FOOT CARE INSTRUCTIONS. pdf (DIABETIC FOOT CARE INSTRUCTIONS. pdf) 06/24/2024 Other hammer toe(s) (acquired), left foot (ICD-10 - M20.42) Plan Of Treatment Treatment Notes Assessment Notes Other hammer toe(s) (acquired), right fo ot Patient Educated with: DIABETIC FOOT CARE INSTRUCTIONS.pdf (DIABETIC FOOT CARE INSTRUCTIONS.pdf) Pending Test Test Name Order Date 78807-HZRUMBG NAIL, 6 OR MORE 06/24/2024 00169-TZVE SKIN LESIONS, OVER 4 06/25/19 25 Next Appt Details Follow Up: 3 Months, Reason: Provider Name:Melina chowdhury, 09/22/2024 03:00:00 PM, [address] [place] [address], [phone], Procedure Notes * Category Sub-Category Detail Notes [...] use of a nail nipper and/or dremel-type shear grinder operator helper, to a more viable healthy nail plate [...] to maintain effectiveness in symptomatic relief - 12919 Keratoma Treatment Parring or Cutting o f [...] instrumentation by the physician of record - 76066 Progress Notes * Lynda LESLIE DDOB:1945 ( 79 yo F)Acc No.[id number]:06/24/2024 Progress Note Patient:?Lynda LESLIE D Provider:?Melina Booth DPM :1945???Age:79 Y???Sex:Female D ate:06/24/2024 Address:[address] [place], [place] [address] Pcp:Jia Parmar MD Subjective: * Chief Complaints: * ???At Risk FootcareToe Irrit ation * HPI: ???At Risk footcare:?Pt States Last PCP Visit:?Date?11/06/2023 ???Toe pain:?Location:?B/L feet.?Duration:?several years.?Course:?worse.?Aggravated by:?shoes, any pressure.?Treatments:?change in shoes.? * ROS:?General/Constitutional:?Nausea?denies.?Vomiting?denies.?Hunger Thirst?denies.?Loss appetite?denies.?Chills?denies.?Fatigue?denies.?Fever?denies.?Night Sweats?denies.?Unexplained weight loss?denies.?Unexplained [...] - RT leg 05/09/17Back surgery 01/19Knee infection 1/2021pick line aser surgery 07/05/20vertebrae neck sx 12/20/20colonoscopy [...] daughter(s) . .? * Social History:?Tobacco Use:?Tobacco use other than smoking?Are you an other tobacco user??No ?Tobacco Control (Standard)?Tobacco use:?Nonsmoker ?Additional Findings: Tobacco non-user?Current nonsmoker ???Drugs/Alcohol:?Drugs?Have you used drugs other than those for medical reasons in the past 12 months??No ?Alcohol Screen?Did you have a drink containing alcohol in the past year??No ?Points?0 ?Interpretation?Negative ???Miscellaneous:?Caffeine: yes, 1-2 cups per day. ?Children: yes, 3. ?Exercise: yes, housework, gardening. ?Marital status: . 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 * Medications:?TakingSpironola ctone 25 MG Tablet 1 [...] heat-molded multi-density innersoles for 1 year Dx: Ammonium Lactate 12 % Cream 1 application Externally to affected areas of dry skin to feet except for between the toes Twice a day Taking Spironolactone 25 MG Tablet 1 tablet [...] Diabetic Shoes with 3 Pair Custom heat-molded multi- density innersoles for 1 year Dx: Taking Ammonium Lactate 12 % Cream 1 application Externally to affected areas of dry skin to feet except for between the toes Twice a day Not-Taking/PRNhydrALAZINE HCl Diclofenac gel, used with PSK [...] Orally every 6 hrs Not-Taking/PRN Nortriptyline HCl Not- Taking/PRN rOPINIRole HCl , Notes to Pharmacist: FOR [...] hours Externally Once a day Not-Taking/PRN Xopenex Not- Taking/PRN Gabapentin 300 MG Capsule 1 capsule Orally Three times a day Not-Taking/PRN Physical Therapy . . . . 2-3x/week Not-Taking/PRN Physical Therapy . . . . 2-3x/week Not-Taking/PRN Physical Therapy . . . . 2-3x/week Not-Taking/PRN Colchicine 0.6 MG Tablet 1 tablet Orally Once a day Not-Taking/PRN Lunesta 3 MG Tablet 1 tablet immediately before bedtime Orally Once a day Not-Taking/PRN Benzonatate 200 MG Capsule 1 capsule Orally Three times a day Not-Taking/PRN Cyanocobalamin , Notes to Pharmacist: B12 injection 1 X per MNot-Taking/PRN Fish Oil 1000 mg Capsule 1 capsule Orally Once a day Not-Taking/PRN Esomeprazole Magnesium Not-Taking/PRN Aerochamber Plus Medication List reviewed and reconciled with the patient * Allergies:?AlbuterolCephalex inLactoseMacrodantinIndocinGlutenBactrimVentolin HFALatexPercocet: Restlessness, Nervousness, Feels like she's wiredAdhesiveyes[Allergies Verified] Objective: * Vitals:?Ht: 5 ft 0 in, Wt:11 1, BMI: 21.68, Shoe size:5-5.5, BP:120/60mm Hg, BS:not taken, Wt-k.35 kg. * ???Past Orders: ???Lab:HEMOGLOBIN A1C (GLYCO [...] B/L, sub 5th MTH B/L, plantar heels B/L.?Vascular: ?DP PULSES (B):??0/4, B/L.?PT PULSES (B):? 1/4, B/L.?CAPILLARY FILL TIME:?3 secs. per digit, B/L.?TROPHIC CONDITION-TEXTURE/ELASTICITY/TURGOR/HAIR GROWTH (B):?decreased, B/L , sparce hair growth.?TEMPERTURE GRADIENT (C):?decreased, cool to cool, proximal to distal, B/L.?PIGMENTATION:?normal, B/L.?EDEMA (C):?non-pitting, without aching pain, Ankle(s), Leg(s), B/L.?TELANGECTASIA:?absent.?VARICOSITIES:?absent.?Orthopedic: ?MUSCLE STRENGTH:?5/5 all groups in a symmetrical fashion, B/L.?DIGITAL DEFORMITIES:?Digital contracture, PIPJ, 2-5 B/L, incompl-reducible to push-up test, no over, nor underlapping,?there is?evidence of shoe producing skin irritation.?FOOTWEAR EVALUATION:?worn, non-supportive, shoe gear properties exacerbate patient's foot/toe deformity.?General Examination: ?GENERAL APPEARANCE:?Reveals a pleasant, alert, well nourished, well- developed, well hydrated individual, who demonstrates proper attention to hygiene/body habitus, and is in no acute distress, Pt serves as own historian for office visit today.?ORIENTED:?person, place, and time.?FOOT EXAM:?Lower Extremity Neurological Exam performed:?Yes ?Visual exam of foot performed:?Yes ?Date?06/24/2024 ?Sensory testing performed:?sensations diminished ?Sensory and motor testing performed:?strength normal ?Pedal pulse taking performed:?1+ ?Footwear Evaluation?Footwear Evaluation performed:?Yes??? Assessment: * Assessment: 1.?Type 2 diabetes mellitus with diabetic polyneuropathy - E11.42 (Primary)???2.?Tinea unguium - B35.1???3.?Other hammer toe(s) (acquired), right foot - M20.41???Specify :Chronic problem, Worse (4),Rx Management (4)???4.?Other hammer toe(s) (acquired), left foot - M20.42???Specify :Chronic problem, Worse (4),Rx Management (4)??? Plan: * Treatment: 2.?Other hammer toe(s) (acqu ired), right foot? Notes: Patient Educated with: DIABETIC FOOT CARE INSTRUCTIONS.pdf (DIABETIC FOOT CARE INSTRUCTIONS.pdf)?? * Procedures:?Debride Nail 6-10:?Nail debridement?Due to the [...] use of a nail nipper and/or dremel-type shear grinder operator helper, to a more viable healthy nail plate [...] to maintain effectiveness in symptomatic relief - 08753.?Keratoma Treatment:?Parring or Cutting of Benign Hyperkeratotic Lesion(s)?(-57) [...] instrumentation by the physician of record - 00289.? * Procedure Codes:?38396 DEBRI DE NAIL, 6 OR MORE, Modifiers: XS 53558 TRIM SKIN LESIONS, OVER 4, Modifiers: XS [...] have encouraged the patient to call the office.?Digital Surgery:?Digital surgery was discussed with the patient, We elected to try conservative treatment at the present time, due to the patients medical history and increased asssociated post-operative risks.?Digital Treatment:?HT- I explained to the patient the possible etiologies of Hammertoes, including genetics/foot type/shoegear/activity level/exercise routine and the risks/benefits of all the different treatment options for their pain including: No treatment at all, Rest, Ice, New/supportive/wider/deeper Shoegear, Digital Padding/Strapping/Taping/Bracing/Gel protective sleeves, Foot/Ankle AFO Bracing, Stretching exercises, Deep Tissue Massage, Arch support/shoe inserts with splay metatarsal padding, and Custom orthoses. I insisted that any digital devices be removed daily and not worn overnight for safety. The patient is to carefully examine the toes daily for any skin irritation while using any splinting or padding device. The advantages and disadvantages of each option were discussed and the patients questions re: shoegear, padding, custom vs prefabricated inserts, activity level, and consistency in home treatment regimens for optimal success were answered to their verbally confirmed satisfaction.?Shoe Gear Counseling:?Patient DEFERS recommended Extra Depth Orthopedic pressure-accommodative shoes against medical advice.? ??Screening/Special Tests:?Fall Risk?Screening:?No falls in the past year ?FALLS: Screening for Future Fall Risk?Have you had any falls with injury in the past year??No * Follow Up:?3 Months * Images: * Sign off status: Completed true * Provider:?Melina Booth DPM Date:?0 06/24/2024 Generated for Anisha stephen/Jaspal/Noah on:?07/20/2024 07:18 AM EDT History and Physical Notes * HPI (History of Present Illness) Category Sub-Category Detail Notes Category Not es Toe pain Location: B/L feet Duration: several years Course: worse Aggravated by: shoes, any pressure Treatments: change in shoes At Risk footcare Pt States Last PCP Visit: Date: Examination Category Sub-Category Detail Notes Category Not [...] sub 5th MTH B/L, plantar heels B/L Orthopedic FOOTWEAR EVALUATION: worn, non-s upportive, shoe gear properties exacerbate patient's foot/toe deformity DIGITAL DEFORMITIES: Digital contracture , PIPJ, 2-5 B/L, incompl-reducible to push-up test, no over, nor underlapping, there is evidence of shoe producing skin irritation MUSCLE STRENGTH: 5/5 all groups in a symmetrical fashion, B/L General Examination GENERAL APPEARANCE: Reveals a pleasant, alert, well nourished, well-developed, well hydrated individual, who demonstrates proper attention to hygiene/body habitus, and is in no acute distress, Pt serves as own historian for office visit today FOOT EXAM: Lower Extremity Neurological Exa m performed:: Yes Visual exam of foot performed:: Yes Date: 06/24/2024 Sensory testing performed:: sensations d iminished Sensory and motor testing performed:: [facility] normal Pedal pulse taking performed:: 1+ ORIENTED: person, place, and t [place] Footwear Evaluation Footwear Evaluation performe d:: Yes Ophthalmology Referral DIABETES EYE EXAM Procedure Perform [...]
[2024-07-20 10:19] LABS: MANUAL DIFF FLAG NO
[2024-07-20 10:22] LABS: Basophils Absolute Auto 0.1 X10*3/uL (0.0-0.2); Basophils Percent Auto 0.8 % (0-2); Eosinophils Absolute Auto 0.2 X10*3/uL (0.0-0.4); Eosinophils Percent Auto 1.9 % (0-4); Hematocrit 36.2 % (37.0-47.0); Hemoglobin 12.1 g/dl (12.0-16.0); Imm Gran Abs Auto 0.03 X10*3/uL (0.00-0.03); Imm Gran Pct Auto 0.4 % (0.0-0.4); Lymphocytes Percent Auto 25.3 % (20-40); Mean Corpuscular HGB Conc 33.4 g/dl (31.0-35.0); Mean Corpuscular Volume 92.8 fL (80.0-98.0); Mean Platelet Volume 11.3 fL (9.4-12.3); Monocytes Absolute Auto 0.7 X10*3/uL (0.1-1.2); Monocytes Percent Auto 8.9 % (2-11); Neutrophils Absolute Auto 4.9 x10*3/uL (2.0-8.3); Neutrophils Percent Auto 62.7 % (45-73); Platelet Count 233 X10*3/uL (160-400); Red Cell Distribution Width 12.4 % (11.0-16.0); White Blood Count 7.8 X10*3/uL (4.8-10.8)
[2024-07-20 10:40] LABS: Estimated Average Glucose 114 mg/dL; Hemoglobin A1C 120.2658 umol/L; Hemoglobin A1c % 5.6 % (<6.0); Total Hemoglobin (HGBA1C) 3222.2904 umol/L
[2024-07-20 10:59] LABS: Albumin Level 4.2 g/dL (3.5-5.0); Alkaline Phosphatase 62 U/L (39-117); Anion Gap 13 (12-20); Aspartate Amino Transferase 44 U/L (5-31); Bilirubin Total 0.4 mg/dL (0.0-1.0); Blood Urea Nitrogen 27 mg/dL (9-16); Calcium 9.4 mg/dL (8.4-10.2); Carbon Dioxide 21 mmol/L (22-29); Chloride 110 mmol/L (96-108); Cholesterol 137 mg/dL (<200); Estimated Glomerular Filt Rate 36; Glucose Fasting 118 mg/dL (60-99); HDL Cholesterol 60 mg/dL (>40); LDL Cholesterol Calculated 59 mg/dL (<100); Potassium 4.5 mmol/L (3.3-5.1); Sodium 139 mmol/L (135-145); Triglycerides 91 mg/dL (<150); Vitamin D 25-OH Total 91.1 ng/mL (>30)
[2024-07-20 11:10] LABS: Folate 17.3 ng/mL (> or = 4.0); Vitamin B12 1160 pg/mL (200-900)
[2024-07-20 11:41] LABS: Alanine Aminotransferase 53 U/L (0-31)
[2024-07-20 14:07] LABS: Creatinine Urine 63.28 mg/dL
== END 2024-07-20 07:17 | disposition home or self-care (01) ==
LOC: HO.HMGCLDS 07:16
PROVIDERS: PCP Internal Medicine; Visit Provider Internal Medicine
DX: I12.9 Hypertensive chronic kidney disease with stage 1 through stage 4 chronic kidney disease, or unspecified chronic kidney disease (principal); N18.30 Chronic kidney disease, stage 3 unspecified; E53.8 Deficiency of other specified B group vitamins; E55.9 Vitamin D deficiency, unspecified; T84.59XA Infection and inflammatory reaction due to other internal joint prosthesis, initial encounter; Z96.659 Presence of unspecified artificial knee joint; D68.2 Hereditary deficiency of other clotting factors; R73.9 Hyperglycemia, unspecified; E78.5 Hyperlipidemia, unspecified
CPT/HCPCS: 36415; 80053; 80061; 82043; 82306; 82570; 82607; 82746; 83036; 85025

== ENCOUNTER 2024-07-21 10:08 | Outpatient (AMB) | payer MEDICARE, OTHER, SELFPAY ==
--- NOTE | 2024-07-21 10:21 | A.OFFPC_ITS ---
Vital Signs 07/21/24 10:22 Height 5 ft Weight 108 lb BMI 21.1 BP 134/76 Blood Pressure Location Lt brachial Position Sitting Respiration 18 Pulse 66 Pulse Source Pulse Oximeter Pulse Oximetry (%) 96 Oxygen Delivery Method Room Air Intake Visit Reasons: Follow up-dtr question cognitive impairment Allergies cephalexin [CEPHALEXIN] Allergy (Severe, Verified 07/21/24 11:09) ANAPHYLAXIS nitrofurantoin [From MACRODANTIN] Allergy (Severe, Verified 07/21/24 11:09) ANAPHYLAXIS albuterol [ALBUTEROL] Allergy (Intermediate, Verified 07/21/24 11:09) ITCHING Sulfa (Sulfonamide Antibiotics) [SULFA (SULFONAMIDE ANTIBIOTICS)] Allergy (Intermediate, Verified 07/21/24 11:09) ITCHING acetaminophen [Percocet] Allergy (Unknown, Verified 07/21/24 11:09) itchy amoxicillin Allergy (Unknown, Verified 07/21/24 11:09) itchy and diarrhea doxycycline Allergy (Unknown, Verified 07/21/24 11:09) itchy gluten [GLUTEN] Allergy (Unknown, Verified 07/21/24 11:09) Ciliac disease indomethacin [Indocin] Allergy (Unknown, Verified 07/21/24 11:09) n/a lactose Allergy (Unknown, Verified 07/21/24 11:09) severe diarrhea latex Allergy (Unknown, Verified 07/21/24 11:09) itchy rash oxycodone [Percocet] Allergy (Unknown, Verified 07/21/24 11:09) itchy olmesartan Adverse Reaction (Intermediate, Verified 07/21/24 11:09) diarrhea DAIRY PRODUCTS Allergy (Unknown, Uncoded 07/21/24 11:09) severe diarrhea ventolin tabs Allergy (Unknown, Uncoded 07/21/24 11:09) Palpitations Tobacco use date assessed: 07/21/24 Fall risk assessment: No Falls in past year Last assessed Fall Risk: 07/21/24 Dental Screening Dental Screen Date: 03/11/24 HPI Follow up-dtr question cognitive impairment HPI Details Pt presents for f/u HTN, hypothyroid, hyperlipid, anxiety. Pt c/o worsening LBP and bilateral leg pain and weakness secondary to spinal stenosis. Pt was referred by Dr. Vizcaino to pain management and started on Oxycodone prn. [facility] Medical History Hx of rheumatoid arthritis Hx of ectopic Back pain Arthritis Thyroid disease Diabetes Peptic ulcer Fatty liver Asthma On anticoagulant therapy DVT (deep venous thrombosis) Pulmonary embolism Osteopenia Minor skin laceration Annual physical exam Vitamin B 12 deficiency Vitamin D deficiency Chronic infection of knee joint prosthesis Diarrhea Knee pain Hypothyroidism Normal Pap smear Degenerative joint disease (DJD) of lumbar spine Microscopic colitis GERD (gastroesophageal reflux disease) Factor V deficiency Depression Colitis without complication Hyperglycemia Hyperlipidemia HTN (hypertension) Surgical History History of dental surgery History of release of tendon Hx of hammer toe correction History of bunionectomy of left great toe Hx of cholecystectomy H/O colonoscopy H/O cervical spine surgery History of lumbar surgery History of carpal tunnel syndrome History of knee replacement History of vagotomy History of total abdominal hysterectomy and bilateral salpingo-oophorectomy Family History Father Bladder cancer Mother Hypertension Social History Household Members: Spouse Housing: House Are you a primary manager critical care to a significant other at home: No Do you presently have visiting nurse or other home services: No Alcohol intake: never Patient Tobacco Use Status: Never used Tobacco e-Cigarette/Vaping Use: Never Used Second Hand Smoke Exposure: Yes service: No Current occupational status: retired Cognitive needs: No Hearing needs: No Vision needs: Yes Questionnaire Thrive Questionnaire Date Thrive assessed: 03/08/24 I am a: Patient What is your living situation today?: I have a steady place to live Within the past 12 months, did the food you bought not last and you didn't have the money to get more?: Never true Within the past 12 months, did you worry whether your food would run out before you got money to buy more?: Never true Do you have trouble paying for medicines?: No Do you have trouble getting transportation to medical appointments?: No Do you have trouble paying your heating and electricity bill?: No Do you have trouble taking care of your child, family member or friend?: No Do you have trouble with day-to-day activities such as bathing, preparing meals, shopping, managing finances, etc.?: No Are you currently unemployed and looking for a job?: No Are you interested in more education?: No Please select the resources that you would like help with: None Currently or been in a relationship where the following occur: No concerns reported THRIVE Score: 0 ROSALINDA-7 AMB Questionnaire ROSALINDA-7 Date ROSALINDA - 7 assessed: 03/11/24 Source: Developed by Drs. Andrew Pompa, Tasha Barnard, Jonathan Minor and colleagues, with an educational farooq from [employer]. Review of Systems Const All systems reviewed & are unremarkable except as noted in HPI and below ENT Reports no additional complaints Card Reports no additional complaints Resp Reports no additional complaints GI Reports no additional complaints Reports no additional complaints Physical exam (Primary Care) Vital Signs: Last Vital Signs Pulse 66 07/21/24 10:22 Resp 18 07/21/24 10:22 BP 134/76 07/21/24 10:22 Pulse Ox 96 07/21/24 10:22 Oxygen Delivery Method Room Air 07/21/24 10:22 BMI result Body Mass Index 21.1 Tobacco/Smoking Status: Tobacco use Status Tobacco use date assessed 07/21/24 07/21/24 11:13 Patient Tobacco Use Status Never used Tobacco 07/21/24 10:22 e-Cigarette/Vaping Use Never Used 07/21/24 10:22 Thrive Assessment: Date of Thrive Assessment Date Thrive assessed 03/08/24 07/21/24 10:22 Currently or been in a relationship where the following occur: No concerns reported Const General: no acute distress HENMT Head: Yes normal to inspection Mouth: Normal oral and palatal mucosa present Eyes General: appearance normal, both eyes and all related structures Resp Effort & Inspection: normal respiratory effort Auscultation: clear to auscultation bilaterally Cardio Rhythm: regular rhythm Heart sounds: S1 normal heart sound present and S2 normal heart sound present GI Inspection: Yes normal to inspection Palpation (GI): Soft to palpation Coding Level of Care Code Est Pt Level 4 (33383) Diagnoses Lumbar spinal stenosis due to adjacent segment disease after fusion procedure M48.061; M51.36 CKD (chronic kidney disease) stage 3, GFR 30-59 ml/min N18.30 Hyperlipidemia E78.5 HTN (hypertension) I10 Assessment & Plan Assessment & Plan (1) Lumbar spinal stenosis due to adjacent segment disease after fusion procedure: Code(s): M48.061 - Spinal stenosis, lumbar region without neurogenic claudication; M51.36 - Other intervertebral disc degeneration, lumbar region Category: Medical Plan: Patient is established with pain management. Sertraline will be discontinue and duloxetine 20 mg twice a day will be started for depression anxiety and chronic pain (2) CKD (chronic kidney disease) stage 3, GFR 30-59 ml/min: Comment: Renal ultrasound 4 mm nonobstructive right kidney stone 07/2023 Code(s): N18.30 - Chronic kidney disease, stage 3 unspecified Category: Medical Plan: Monitor renal function avoid nephrotoxins follow-up with Urology (3) Hyperlipidemia: Code(s): E78.5 - Hyperlipidemia, unspecified Category: Medical Plan: Continue statin (4) HTN (hypertension): Code(s): I10 - Essential (primary) hypertension Category: Medical Plan: Continue current medications Medications: New duloxetine 20 mg PO BID 60 caps 1RF Discontinued sertraline Discontinued Reason: Doctor's Order 25 mg PO DAILY 90 tabs 3RF
[2024-07-21 10:22] VITALS: BP 134/76; PULSE 66; RESP 18; O2SAT 96; BMI 21.1
--- OUTSIDE RECORDS SUMMARY | 2024-07-21 11:38 | XMS_ITS | Patient Health Record ---
Author Organization [facility] Address [address] [place] [address] Care Team Providers Care Shrimp Packer Name Role Phone Jia Parmar MD Primary Care Provider UnavailMelina Acharya Unavailable [phone] Alexandre Williamson Unavailable [phone] Allergies Allergen (clinical drug ingredient) Drug/Non Drug [...] Problem Acquired hammer toe of left foot (8373169521747993) Other hammer toe(s) (acquired), left foot (M20.42) Active confirmed Problem Polyneuropathy due to diabetes mellitus type I (138412122) 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 Problem Localized, primary osteoarthritis of the ankle and/or foot (761800501) Primary osteoarthritis, right ankle and foot (M19.071) Active confirmed Problem Localized, primary osteoarthritis of the ankle and/or foot (955993527) Primary osteoarthritis, left ankle and foot (M19.072) Active confirmed Problem Acquired hammer toe of right foot (1912541134899914) Other hammer toe(s) (acquired), right foot (M20.41) Active confirmed Problem Polyneuropathy due to type 2 diabetes mellitus (013147978) Type 2 diabetes mellitus with diabetic polyneuropathy (E11.42) Active confirmed Problem Primary gout (07254759) Idiopathic gout, right ankle and foot (M10.071) Active confirmed Problem Primary gout (76817341) Idiopathic gout, left ankle and foot (M10.072) Active confirmed Problem 54825074852054413 Atherosclerosi s of artery of both lower extremities (I70.203) Active confirmed Vital Signs Blood pressure diastolic 60 mm Hg 06/24/2024 Height 5 ft 0 in in 06/24/2024 Blood pressure systolic 120 mm Hg 06/24/2024 Weight 111 lbs 06/24/2024 BMI 21.68 kg/m2 06/24/2024 Procedures Procedure Date Ordered Date Performed Result Body Sit e 37645-ETKLMZP NAIL, 6 OR MORE 02/18/2024 N/A 20634-CNCJ SKIN LESIONS, OVER 4 02/18/2024 N/A 87559-OYYMZXQ NAIL, 6 OR MORE 06/24/2024 N/A 59442-CKMX SKIN LESIONS, OVER 4 06/24/2024 N/A Encounters Encounter Location Date Provider Diagnosis [facility] [place] [address] [place] [address] 08/21/2023 Alexandre Williamson Pain in right toe(s) M79.674 ; Other hammer toe(s) (acquired), right foot M20.41 ; Type 2 diabetes mellitus with diabetic polyneuropathy E11.42 ; Exostosis of right foot M89.8X7 ; Atherosclerosis of artery of both lower extremities I70.203 ; Tinea unguium B35.1 and Pain in left toe(s) M79.[address] [address] 11/13/2023 Alexandre Williamson Pain in right toe(s) M79.674 ; Other hammer toe(s) (acquired), right foot M20.41 ; Type 2 diabetes mellitus with diabetic polyneuropathy E11.42 ; Exostosis of right foot M89.8X7 ; Atherosclerosis of artery of both lower extremities I70.203 ; Tinea unguium B35.1 and Pain in left toe(s) M79.[address] [address] 02/18/2024 Melina Booth Type 2 diabetes mellitus with diabetic polyneuropathy E11.42 ; Tinea unguium B35.1 and Xerosis of skin L85.[address] [address] 06/24/2024 Melina Booth Type 2 diabetes mellitus with diabetic polyneuropathy E11.42 ; Tinea unguium B35.1 ; Other hammer toe(s) (acquired), right foot M20.41 and Other hammer toe(s) (acquired), left foot M20.[address] [address] 06/24/2024 Melina Booth Assessments Encounter Date Diagnosis [...] X ray : Foot, right 3V 08/04/2017 89163-MHSSJRH NAIL, 6 OR MORE 10/27/2017 90874-DEQKHBA NAIL, 6 OR MORE 08/04/2017 05753-YRAUVFT NAIL, 6 OR MORE 05/12/2017 30857-VPQISJZ NAIL, 6 OR MORE 06/24/2024 14136-KSZKMPE NAIL, 6 OR MORE 02/18/2024 86349-NDMEMJF NAIL, 6 OR MORE 2018 90482-HVBTWID NAIL, 6 OR MORE 03/10/2017 30934-GVXYCCT NAIL, 6 OR MORE 01/06/2017 95609-ZZLZSNI NAIL, 6 OR MORE 10/23/2016 22464-WEKOEON NAIL, 6 OR MORE 07/25/2016 79691-OOTPNGY NAIL, 6 OR MORE 05/10/2016 04151-AVUQIMS NAIL, 6 OR MORE 02/14/2016 03147-NEFISXE NAIL, 6 OR MORE 11/20/2015 88979-KEEFINS NAIL, 6 OR MORE 07/05/2015 56026-Aiumdldz Plate 07/27/2015 46962-Stjmbaln Plate 05/29/2016 82281-Ysikyvbc Plate 06/10/2016 29430- Debride <25 sq cm 06/10/2016 85194- Debride <25 sq cm 09/25/2016 67787- Debride <25 sq cm 10/23/2016 19608- Debride <25 sq cm 08/14/2015 64304-ZOOZ SKIN LESIONS, OVER 4 07/05/19 16 66716-GAIQ SKIN LESIONS, OVER 4 11/20/19 16 17813-OEXL SKIN LESIONS, OVER 4 02/14/20 16 15890-RURC SKIN LESIONS, OVER 4 05/11/19 17 15678-ITEM SKIN LESIONS, OVER 4 10/24/19 17 69070-EOXO SKIN LESIONS, OVER 4 01/07/20 17 32857-NNLF SKIN LESIONS, OVER 4 05/13/19 18 37204-XBNF SKIN LESIONS, OVER 4 03/10/19 18 21753-FRVH SKIN LESIONS, OVER 4 02/13/20 21 10902-WYGQ SKIN LESIONS, OVER 4 05/15/19 24326-XUZI SKIN LESIONS, OVER 4 02/18/20 24 92604-KELC SKIN LESIONS, OVER 4 06/25/19 90931-VHMU SKIN LESIONS, OVER 4 08/05/19 18 88645-LJUL SKIN LESIONS, OVER 4 01/13/20 18 34838-NEOA SKIN LESIONS, OVER 4 10/28/19 18 08238-DSSL SKIN LESIONS, OVER 4 04/13/19 19 11256-UCMB SKIN LESIONS, OVER 4 07/14/19 19 69559-DTPM SKIN LESIONS, OVER 4 10/13/19 95689-HQVC SKIN LESIONS, OVER 4 01/12/20 59859-RCBJ SKIN LESIONS, OVER 4 04/12/19 62720-NFWQ SKIN LESIONS, OVER 4 07/14/19 81074-SCBP SKIN LESIONS, OVER 4 10/18/19 40689-EWFE SKIN LESIONS, OVER 4 01/17/20 19658-YFPC SKIN LESIONS, OVER 4 04/24/19 59072-DYPN SKIN LESIONS, OVER 4 07/25/19 89361-FPTP SKIN LESIONS, OVER 4 11/21/19 76430-HINN SKIN LESIONS, 2 TO 4 07/26/19 17 73776, P9454-DFJKO/INJECT, JOINT/BURSA 0 04/13/2018 26657, J0702- Neuroma/Injection 11/20/19 16 91239-Xhwvktzqb, Toes 05/10/2016 01962-Wkyftgdph, Toes 05/15/2016 59518-Csthwscmf, Toes 03/12/2023 Next Appt Details Provider Name:Melina Wanda chowdhury, 09/22/2024 03:00:00 PM, [address] [facility], [place], [address], Insurance Providers Payer Name Payer Address Payer Phone Subscriber Number Group Number Insured Name Patient Relationship to Insured Coverage Start Date Coverage End Date Medicare National [employer]t S[employer] [address] [place] [address] [id number] Lynda Leslie Self - patient is the insured [employer]) [address] [place] [address] [id number] Shayan Leslie Spouse - patient is [...]
--- OUTSIDE RECORDS SUMMARY | 2024-07-21 11:38 | XMS_ITS ---
Author Organization [facility] Address [address] [place] [address] Care Team Providers Care Automatic Clipper Name Role Phone Jia Parmar MD Primary Care Provider Melina Dunne [phone] REASON FOR VISIT QMB? Encounters Encounter Location Date Provider Diagnosis [address] [address] 06/24/2024 Melina Booth Plan Of Treatment Next Appt Details Provider Name:Melina chowdhury, 09/22/2024 03:00:00 PM, [address] [place] [address], [address], Progress Notes * VILLA Lynda DDOB:1945 ( 79 yo F)Acc No.[id number]:06/24/2024 Patient:?Irasema LESLIEramila Guerin :1945???Age:79 Y???Sex:Female Address:[address] [place] [address] [place], [address] * true * Date:? Generated for Printi ng/Faxing/eTransmitting on:?07/21/2024 11:38 AM EDT
--- OUTSIDE RECORDS SUMMARY | 2024-07-21 11:38 | XMS_ITS ---
Author Organization [facility] Address [address] [facility] [place] [address] Care Team Providers Care Sewer Digger Name Role Phone Jia Parmar MD Primary Care Provider Melina Dunne Unavailable [phone] Allergies Allergen (clinical drug ingredient) Drug/Non Drug [...] Problem Acquired hammer toe of left foot (7446552266901 103) Other hammer toe(s) (acquired), left foot (M20.42) Active confirmed Vital Signs Height 5 ft 0 in in 06/24/2024 Weight 111 lbs 06/24/2024 BMI 21.68 kg/m2 06/24/2024 Blood pressure systolic 120 mm Hg 06/25/19 25 Blood pressure diastolic 60 mm Hg 025 Procedures Procedure Date Ordered Date Performed Result Body Sit e 92806-AXGHCEM NAIL, 6 OR MORE 06/24/2024 N/A 44900-AATC SKIN LESIONS, OVER 4 06/24/2024 N/A Encounters Encounter Location Date Provider Diagnosis [facility] [address] [address] 06/24/2024 Melina Booth Type 2 diabetes mellitus [...] INSTRUCTIONS.pdf) Pending Test Test Name Order Date 34506-TANYGMX NAIL, 6 OR MORE 06/24/2024 53614-XPIW SKIN LESIONS, OVER 4 06/25/19 25 Next Appt Details Follow Up: 3 Months, Reason: Provider Name:Melina chowdhury, 09/22/2024 03:00:00 PM, [address] [place] [address], [address], Procedure Notes * Category Sub-Category Detail Notes [...] use of a nail nipper and/or dremel-type tool grinder operator external, to a more viable healthy nail plate [...] to maintain effectiveness in symptomatic relief - 59393 Keratoma Treatment Parring or Cutting o f [...] instrumentation by the physician of record - 37376 Progress Notes * Lynda LESLIE DDOB:1945 ( 79 yo F)Acc No.[id number]:06/24/2024 Progress Note Patient:?Lynda LESLIE D Provider:?Melina Booth DPM :1945???Age:79 Y???Sex:Female D ate:06/24/2024 Address:[address] [place], [place] [address] Pcp:Jia Parmar MD Subjective: * Chief Complaints: [...] gardening. ?Marital status: . 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 * Medications:?TakingSpironola ctone 25 MG Tablet 1 [...] use of a nail nipper and/or dremel-type tool grinder operator external, to a more viable healthy nail plate [...] to maintain effectiveness in symptomatic relief - 39901.?Keratoma Treatment:?Parring or Cutting of Benign Hyperkeratotic Lesion(s)?(-57) [...] instrumentation by the physician of record - 15020.? * Procedure Codes:?61248 DEBRI DE NAIL, 6 OR MORE, Modifiers: XS 80852 TRIM SKIN LESIONS, OVER 4, Modifiers: XS [...] DPM Date:?0 06/24/2024 Generated for Anisha stephen/Jaspal/Noah on:?07/21/2024 11:38 AM EDT History and Physical Notes * [...] d iminished Sensory and motor testing performed:: [facility] normal Pedal pulse taking performed:: 1+ [...]
--- OUTSIDE RECORDS SUMMARY | 2024-07-21 11:38 | XMS_ITS | Clinical Summary ---
Author Organization [facility] Address [address] [place] [address] Phone Care Team Providers Care Dye Machine Operator Name Role Phone Jia Parmar MD Primary Care Provider [phone] Surgical History Surgery Date Site/Laterality Comments HYSTERECTOMY [...] Procedure Name Priority Date/Time Associated Diagnosis Comments [facility] DEXA AXIAL SKELETON Routine 11/19/2022 11:36 AM EDT Other specified disorders of bone density and structure, other site from Last 3 Months or Most Recently Relevant to Health Maintenance Results * [facility] DEXA AXIAL SKELETON (11/19/2022 11:36 AM EDT) Anatomical Region Laterality Modality Mammography 11/19/2022 8:53 AM EDT Narrative 11/19/2022 11:36 AM EDT [facility] Diagnostic Imaging Department [address] [place] [address] 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 Location/Status: ??SPDIMAM/REG CLI ? [facility] Ordering Physician: ??JOSE SAMUELS MD [facility] Dexa Axial Skeleton - 11/19/22920 Report Status:Signed [...] probability of hip fracture of 4.7%. 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 Code 80579 Dictating Physician: CLIVE BREWER MD Electronically Signed by: CLIVE BREWER MD Dic Date/Time: 11/19/22 1133 Sign date/Time: 11/19/22 1136 us Jose Samuels MD IMG BI PROCEDURES Final Result from Last 3 Months or Most Recently Relevant to Health Maintenance Insurance MEDICARE Member Subscriber Plan / Payer (Ef fective 2024-Present) Name:Heber Driver Apoorva Member ID:[id number] Relation to Subscriber:Self Name:Heber Driver Apoorva Subscriber ID:[id number] Payer ID:Not on file Group ID:Not on file Type:Medicare Address: [address] MEDICARE Member Subscriber Plan / Payer (Ef fective 2024-Present) Name:Heber Driver Apoorva Member ID:[id number] Relation to Subscriber:Self Name:Heber Driver Apoorva Subscriber ID:[id number] Payer ID:Not on file Group ID:Not on file Type:Medicare Address: [address] [place] - [place] [facility] Advance Directives Documents on File Type Date Recorded Patient Wholesaler Expl anation Health Care Decision (hx) 03/16/2014 [...] (hx) 03/16/2014 AD CALDERON DIRECTIVE Care Teams Dye Machine Operator Relationship Specialty Start Date End Date Jia Parmar MD [address] [place] [address] PCP - General Internal Medicine 02/20/24
--- OUTSIDE RECORDS SUMMARY | 2024-07-21 11:38 | XMS_ITS | Clinical Summary ---
Author Organization [facility] Address [address] [place] [address] Care Team Providers Care Film Replacement Orderer Name Role Phone Pcp, No Primary Care [...] this topic Medical Devices Implanted Type Area Corn Miller Device Identifier Shelf Expiration Date Model / Serial / Lot [id number] Insert Articular 3-4 C-H Std [id number] Knee Net Mold Uhmwpe - [id number] Implanted:Qty: 1 on 03/17/2020 by Tray Duncan MD at [facility] Joint Prosthesis Right: Knee [employer] [id number] 10004/02/2027 [id number] / / [id number] Oral Implanted:Qty: 3 Oral Tooth Procedures Procedure [...] Insurance [place] [id number] [facility] MEDICARE PART A & B [facility] Advance Directives Documents on File Type Date Recorded Patient Panel Monitor Expl anation Advance Directive-Scan 04/14/2024 RX AP PROVAL TO ID Advance Directive-Scan 07/01/2022 APPRO VAHE OF MEDICATION * Full Code (Latest Code Status on File) Date Activated Date Inactivated Comments 03/16/2020 7:24 PM Care Teams Film Replacement Orderer Relationship Specialty Start Date End Date Pcp, No PCP - General General Medicine 10/24/20
--- OUTSIDE RECORDS SUMMARY | 2024-07-21 11:38 | XMS_ITS ---
[facility] Address [address] [facility] [place] [address] Care Team Providers Care Rn Ent Name Role Phone Jia Parmar MD Primary Care Provider Melina Dunne Unavailable [phone] Allergies Allergen (clinical drug ingredient) Drug/Non Drug [...] Polyneuropathy due to diabetes mellitus type I ([id number]) 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 Vital Signs Height 5 ft 0 in in 02/18/2024 Weight 111 lbs 02/18/2024 BMI 21.68 kg/m2 02/18/2024 Blood pressure systolic 120 mm Hg 02/18/20 24 Blood pressure diastolic 65 mm Hg 024 Procedures Procedure Date Ordered Date Performed Result Body Sit e 85162-[id number] NAIL, 6 OR MORE 02/18/2024 N/A 55919-RDPN SKIN LESIONS, OVER 4 02/18/2024 N/A Encounters Encounter Location Date Provider Diagnosis [facility] [address] [address] 02/18/2024 Melina Booth Type 2 diabetes mellitus [...] days Pending Test Test Name Order Date [id number] NAIL, 6 OR MORE 02/18/2024 68468-CUVH SKIN LESIONS, OVER 4 02/18/20 24 Next Appt Details Follow Up: 3 Months, Reason: Provider Name:Melina chowdhury, 09/22/2024 03:00:00 PM, [address] [place] [address], [phone], Procedure Notes * Category Sub-Category Detail Notes [...] use of a nail nipper and/or dremel-type floor grinder, to a more viable healthy nail [...] to maintain effectiveness in symptomatic relief - 78300 Keratoma Treatment Parring or Cutting o f [...] instrumentation by the physician of record - 91959 Progress Notes * Lynda LESLIE DDOB:1945 ( 79 yo F)Acc No.[id number]:02/18/2024 Progress Note Patient:?VILLA Lynda D Provider:?Melina Booth DPM :1945???Age:79 Y???Sex:Female D ate:02/18/2024 Address:[address] [place], [place] [id number] Pcp:Jia Parmar MD Subjective: * Chief Complaints: [...] Days, Pt sstates she fell, dx: concusion 05/18/2017[facility]- pancolitis 02/13/19[place] [facility] 5 days after sx back blood clot / c.diff 03/2020[facility] ER- Fall - police told her [...] housework, gardening. ?Marital status: . 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 * Medications:?TakingSpironola ctone 25 MG Tablet [...] use of a nail nipper and/or dremel-type floor grinder, to a more viable healthy nail [...] to maintain effectiveness in symptomatic relief - 77441.?Keratoma Treatment:?Parring or Cutting of Benign Hyperkeratotic Lesion(s)?(-57) [...] instrumentation by the physician of record - 15617.? * Procedure Codes:?65206 DEBRI DE NAIL, 6 OR MORE, Modifiers: XS 74667 TRIM SKIN LESIONS, OVER 4, Modifiers: XS [...] DPM Date:?1 04/20/2023 Generated for Anisha stephen/Jaspal/Deonitting on:?07/21/2024 11:38 AM EDT History and Physical [...]
--- OUTSIDE RECORDS SUMMARY | 2024-07-21 11:38 | XMS_ITS | Clinical Summary ---
Author Organization [facility] Address [address] [place] [address] Care Team Providers Care Welt Cutter Name Role Phone Jia Parmar MD Primary Care Provider [phone] Social History Tobacco Use Types Packs/Day Years [...] age to complete this topic Care Teams Welt Cutter Relationship Specialty Start Date End Date Jia Parmar MD [address] [facility] [place] [phone] PCP - General Academic Advising Director 12/09/18
== END 2024-07-21 11:39 | disposition home or self-care (01) ==
LOC: HO.HMCC 10:08
PROVIDERS: PCP Internal Medicine; Visit Provider Internal Medicine
DX: M48.061 Spinal stenosis, lumbar region without neurogenic claudication (principal); M51.369 Other intervertebral disc degeneration, lumbar region without mention of lumbar back pain or lower extremity pain; N18.30 Chronic kidney disease, stage 3 unspecified; E78.5 Hyperlipidemia, unspecified; I10 Essential (primary) hypertension

== ENCOUNTER → 2024-07-21 10:08 | Outpatient (BNVA) | payer MEDICARE, OTHER, SELFPAY | PROVIDERS: PCP Internal Medicine; Visit Provider Internal Medicine | DX: M48.061 Spinal stenosis, lumbar region without neurogenic claudication (principal); I12.9 Hypertensive chronic kidney disease with stage 1 through stage 4 chronic kidney disease, or unspecified chronic kidney disease; N18.30 Chronic kidney disease, stage 3 unspecified; E78.5 Hyperlipidemia, unspecified | CPT/HCPCS: 99212 ==

== ENCOUNTER 2024-08-23 11:16 | Outpatient (AMB) | payer MEDICARE, OTHER, SELFPAY ==
[2024-08-23 11:22] VITALS: BP 136/68; PULSE 71; RESP 18; TEMP 36.8; O2SAT 95; BMI 20.9
--- NOTE | 2024-08-23 11:22 | A.OFFPC_ITS ---
Vital Signs 08/23/24 11:22 Height 5 ft Weight 107 lb BMI 20.9 BP 136/68 Blood Pressure Location Lt brachial Position Sitting Respiration 18 Pulse 71 Pulse Source Pulse Oximeter Temp 98.2 F Temp Source Oral Pulse Oximetry (%) 95 Oxygen Delivery Method Room Air Intake Visit Reasons: Follow up Intake Note: Pt is here today for a follow up visit. Allergies cephalexin (CEPHALEXIN) Allergy (Severe, Verified 08/23/24 11:24) ANAPHYLAXIS nitrofurantoin (From MACRODANTIN) Allergy (Severe, Verified 08/23/24 11:24) ANAPHYLAXIS albuterol (ALBUTEROL) Allergy (Intermediate, Verified 08/23/24 11:24) ITCHING Sulfa (Sulfonamide Antibiotics) (SULFA (SULFONAMIDE ANTIBIOTICS)) Allergy (Intermediate, Verified 08/23/24 11:24) ITCHING acetaminophen (Percocet) Allergy (Unknown, Verified 08/23/24 11:24) itchy amoxicillin Allergy (Unknown, Verified 08/23/24 11:24) itchy and diarrhea doxycycline Allergy (Unknown, Verified 08/23/24 11:24) itchy gluten (GLUTEN) Allergy (Unknown, Verified 08/23/24 11:24) Ciliac disease indomethacin (Indocin) Allergy (Unknown, Verified 08/23/24 11:24) n/a lactose Allergy (Unknown, Verified 08/23/24 11:24) severe diarrhea latex Allergy (Unknown, Verified 08/23/24 11:24) itchy rash oxycodone (Percocet) Allergy (Unknown, Verified 08/23/24 11:24) itchy olmesartan Adverse Reaction (Intermediate, Verified 08/23/24 11:24) diarrhea DAIRY PRODUCTS Allergy (Unknown, Uncoded 08/23/24 11:24) severe diarrhea ventolin tabs Allergy (Unknown, Uncoded 08/23/24 11:24) Palpitations Medication List - Last Reconciled 08/23/24 by Jia Parmar MD amlodipine 5 mg PO BID apixaban (Eliquis) 5 mg PO BID blood sugar diagnostic As directed cyanocobalamin (vitamin B-12) 1,000 mcg IM Q4W duloxetine 20 mg PO BID gabapentin 200 mg (2 x 100 mg) PO TID hydralazine 10 mg PO BID hydromorphone 2 mg PO Q6H PRN insulin syringe-needle U-100 use for monthly injections lancets (Accu-Chek Fastclix Lancet Drum) Test blood sugar once a day latanoprost 0.005% 1 drp ophthalmic (eye) BEDTIME levothyroxine 50 mcg PO DAILY loperamide 2 mg PO BID PRN metoprolol succinate ER 50 mg PO BID omeprazole 40 mg PO BID rosuvastatin 5 mg PO DAILY spironolactone 12.5 mg (1/2 x 25 mg) PO DAILY timolol maleate 0.5% 1 drp ophthalmic (eye) QAM trazodone 50 mg PO BEDTIME vancomycin 125 mg PO BID Tobacco use date assessed: 08/23/24 Fall risk assessment: No Falls in past year Last assessed Fall Risk: 08/23/24 Dental Screening Dental Screen Date: 03/11/24 HPI Follow up HPI Details Patient presents for the follow-up of chronic anxiety, depression chronic lower back pain due to spinal stenosis. Patient seen slightly better taking duloxetine instead of sertraline. She continues to take gabapentin for chronic pain. Patient is established with spine center. Hypertension is controlled on current medications. [facility] Medical History (Updated 08/23/24 @ 12:20 by Jia Parmar MD) Lumbar spinal stenosis due to adjacent segment disease after fusion procedure Hx of rheumatoid arthritis Hx of ectopic Back pain Arthritis Thyroid disease Diabetes Peptic ulcer Fatty liver Asthma On anticoagulant therapy DVT (deep venous thrombosis) Pulmonary embolism Osteopenia Minor skin laceration Annual physical exam Vitamin B 12 deficiency Vitamin D deficiency Chronic infection of knee joint prosthesis Diarrhea Knee pain Hypothyroidism Normal Pap smear Degenerative joint disease (DJD) of lumbar spine Microscopic colitis GERD (gastroesophageal reflux disease) Factor V deficiency Depression Colitis without complication Hyperglycemia Hyperlipidemia HTN (hypertension) Surgical History History of dental surgery History of release of tendon Hx of hammer toe correction History of bunionectomy of left great toe Hx of cholecystectomy H/O colonoscopy H/O cervical spine surgery History of lumbar surgery History of carpal tunnel syndrome History of knee replacement History of vagotomy History of total abdominal hysterectomy and bilateral salpingo-oophorectomy Family History Father Bladder cancer Mother Hypertension Social History Household Members: Spouse Housing: House Are you a primary intensive care ambulance paramedic to a significant other at home: No Do you presently have visiting nurse or other home services: No Alcohol intake: never Patient Tobacco Use Status: Never used Tobacco e-Cigarette/Vaping Use: Never Used Second Hand Smoke Exposure: Yes service: No Current occupational status: retired Cognitive needs: No Hearing needs: No Vision needs: Yes Questionnaire Thrive Questionnaire Date Thrive assessed: 03/08/24 I am a: Patient What is your living situation today?: I have a steady place to live Within the past 12 months, did the food you bought not last and you didn't have the money to get more?: Never true Within the past 12 months, did you worry whether your food would run out before you got money to buy more?: Never true Do you have trouble paying for medicines?: No Do you have trouble getting transportation to medical appointments?: No Do you have trouble paying your heating and electricity bill?: No Do you have trouble taking care of your child, family member or friend?: No Do you have trouble with day-to-day activities such as bathing, preparing meals, shopping, managing finances, etc.?: No Are you currently unemployed and looking for a job?: No Are you interested in more education?: No Please select the resources that you would like help with: None Currently or been in a relationship where the following occur: No concerns reported THRIVE Score: 0 ROSALINDA-7 AMB Questionnaire ROSALINDA-7 Date ROSALINDA - 7 assessed: 03/11/24 Source: Developed by Drs. Andrew Pompa, Tasha Barnard, Jonathan Minor and colleagues, with an educational farooq from [employer]. Review of Systems Const All systems reviewed & are unremarkable except as noted in HPI and below Eyes Reports no additional complaints ENT Reports no additional complaints Card Reports no additional complaints Resp Reports no additional complaints GI Reports no additional complaints Reports no additional complaints Physical exam (Primary Care) Vital Signs: Last Vital Signs Temp 98.2 F 08/23/24 11:22 Pulse 71 08/23/24 11:22 Resp 18 08/23/24 11:22 BP 136/68 08/23/24 11:22 Pulse Ox 95 08/23/24 11:22 Oxygen Delivery Method Room Air 08/23/24 11:22 BMI result Body Mass Index 20.9 Tobacco/Smoking Status: Tobacco use Status Tobacco use date assessed 08/23/24 08/23/24 11:24 Patient Tobacco Use Status Never used Tobacco 08/23/24 11:24 e-Cigarette/Vaping Use Never Used 08/23/24 11:24 Thrive Assessment: Date of Thrive Assessment Date Thrive assessed 03/08/24 08/23/24 11:24 Currently or been in a relationship where the following occur: No concerns reported Const General: no acute distress HENMT Head: Yes normal to inspection Resp Effort & Inspection: normal respiratory effort Auscultation: clear to auscultation bilaterally Cardio Rhythm: regular rhythm Heart sounds: S1 normal heart sound present and S2 normal heart sound present GI Inspection: Yes normal to inspection Palpation (GI): Soft to palpation Percussion: Yes normal to percussion Auscultation: normal bowel sounds Coding Level of Care Code Est Pt Level 4 (67069) Complex EM visit Add On G2211 Diagnoses HTN (hypertension) I10 Hyperglycemia R73.9 Depression F32.9 CKD (chronic kidney disease) stage 3, GFR 30-59 ml/min N18.30 Lumbar spinal stenosis due to adjacent segment disease after fusion procedure M48.061; M51.36 Assessment & Plan Assessment & Plan (1) HTN (hypertension): Code(s): I10 - Essential (primary) hypertension Category: Medical Plan: Continue current medications (2) Hyperglycemia: Comment: Diet-controlled Code(s): R73.9 - Hyperglycemia, unspecified Category: Medical Plan: Continue ADA diet and monitor A1c (3) Depression: Code(s): F32.9 - Major depressive disorder, single episode, unspecified Category: Medical Plan: Continue duloxetine (4) CKD (chronic kidney disease) stage 3, GFR 30-59 ml/min: Comment: Renal ultrasound 4 mm nonobstructive right kidney stone 07/2023 Code(s): N18.30 - Chronic kidney disease, stage 3 unspecified Category: Medical Plan: Monitor renal function avoid nephrotoxins follow-up in 3 months (5) Lumbar spinal stenosis due to adjacent segment disease after fusion procedure: Code(s): M48.061 - Spinal stenosis, lumbar region without neurogenic claudication; M51.36 - Other intervertebral disc degeneration, lumbar region Category: Medical Plan: Continue duloxetine and gabapentin renal adjusted, follow-up with spine center Orders: Orders Hemoglobin A1c 3 Months I10 - Essential (primary) hypertension, R73.9 - Hyperglycemia, unspecified, R79.89 - Other specified abnormal findings of blood chemistry Comprehensive Met. Panel 3 Months I10 - Essential (primary) hypertension, R73.9 - Hyperglycemia, unspecified, R79.89 - Other specified abnormal findings of blood chemistry Complete Blood Count Auto Diff 3 Months I10 - Essential (primary) hypertension, R73.9 - Hyperglycemia, unspecified, R79.89 - Other specified abnormal findings of blood chemistry TSH reflex Free T4 3 Months I10 - Essential (primary) hypertension, R73.9 - Hyperglycemia, unspecified, R79.89 - Other specified abnormal findings of blood chemistry Medications: Refilled duloxetine 20 mg PO BID 180 caps 2RF
--- OUTSIDE RECORDS SUMMARY | 2024-08-23 12:54 | XMS_ITS | Clinical Summary ---
Author Organization [facility] Address [address] [place] [address] Care Team Providers Care Therapeutic Recreation Director Name Role Phone Pcp, No Primary Care [...] total) by mouth daily. 90 tablet 2 Active Active Problems Problem Noted Date Diagnosed [...] 100 03/21/2020 6:37 AM EST Temperature 38.2 C (100.8 F) 03/21/2020 6:01 AM EST Respiratory Rate 18 03/21/2020 6:01 AM EST [...] this topic Medical Devices Implanted Type Area Service Line Bus Cleaner Device Identifier Shelf Expiration Date Model / Serial / Lot [id number] Insert Articular 3-4 C-H Std [id number] Knee Net Mold Uhmwpe - [id number] Implanted:Qty: 1 on 03/17/2020 by Tray Duncan MD at [facility] Joint Prosthesis Right: Knee [employer] [id number] 01004/02/2027 [id number] / / [id number] Oral Implanted:Qty: 3 Oral Tooth Procedures Procedure [...] 5.7(H) <5.7 % [facility] Comment: A1c% Interpretation 5.7 - 6.0 Increase risk of diabetes 6.1 - 6.4 Higher risk of diabetes > or = 6.5 Consistent with diabetes Diabetes Care, 33(Supp 1):S1-S61, 2009 Estimated Average Glucose 117 mg/dL [facility] 03/16/2020 8:41 PM EST 03/16/2020 9:00 PM EST us [facility] BLOOD ORDERABLES Final Result [facility]OSPITAL [facility] from Last 3 Months or Most Recently Relevant to Health Maintenance Insurance MEDICARE PART A & B [facility] [place] A [place] [facility] Advance Directives Documents on File Type Date Recorded 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
== END 2024-08-23 12:16 | disposition home or self-care (01) ==
LOC: HO.HMCC 11:17
PROVIDERS: PCP Internal Medicine; Visit Provider Internal Medicine
DX: I10 Essential (primary) hypertension (principal); R73.9 Hyperglycemia, unspecified; F32.9 Major depressive disorder, single episode, unspecified; N18.30 Chronic kidney disease, stage 3 unspecified; M48.061 Spinal stenosis, lumbar region without neurogenic claudication; M51.369 Other intervertebral disc degeneration, lumbar region without mention of lumbar back pain or lower extremity pain

== ENCOUNTER → 2024-08-23 11:16 | Outpatient (BNVA) | payer MEDICARE, OTHER, SELFPAY | PROVIDERS: PCP Internal Medicine; Visit Provider Internal Medicine | DX: I12.9 Hypertensive chronic kidney disease with stage 1 through stage 4 chronic kidney disease, or unspecified chronic kidney disease (principal); N18.30 Chronic kidney disease, stage 3 unspecified; R73.9 Hyperglycemia, unspecified; F32.9 Major depressive disorder, single episode, unspecified; M48.061 Spinal stenosis, lumbar region without neurogenic claudication | CPT/HCPCS: 99212 ==

== ENCOUNTER 2024-10-28 13:55 | Outpatient (AMB) | payer MEDICARE, OTHER, SELFPAY ==
[2024-10-28 13:57] VITALS: BP 146/72; PULSE 83; O2SAT 97; BMI 20.5
--- NOTE | 2024-10-28 13:57 | A.OFFPC_ITS ---
Vital Signs 10/28/24 13:57 Height 5 ft Weight 105 lb BMI 20.5 BP 146/72 H Blood Pressure Location Lt brachial Position Sitting Pulse 83 Pulse Source Pulse Oximeter Pulse Oximetry (%) 97 Intake Visit Reasons: HDF - notes scanned Allergies cephalexin (CEPHALEXIN) Allergy (Severe, Verified 10/28/24 13:57) ANAPHYLAXIS nitrofurantoin (From MACRODANTIN) Allergy (Severe, Verified 10/28/24 13:57) ANAPHYLAXIS albuterol (ALBUTEROL) Allergy (Intermediate, Verified 10/28/24 13:57) ITCHING Sulfa (Sulfonamide Antibiotics) (SULFA (SULFONAMIDE ANTIBIOTICS)) Allergy (Intermediate, Verified 10/28/24 13:57) ITCHING acetaminophen (Percocet) Allergy (Unknown, Verified 10/28/24 13:57) itchy amoxicillin Allergy (Unknown, Verified 10/28/24 13:57) itchy and diarrhea doxycycline Allergy (Unknown, Verified 10/28/24 13:57) itchy gluten (GLUTEN) Allergy (Unknown, Verified 10/28/24 13:57) Ciliac disease indomethacin (Indocin) Allergy (Unknown, Verified 10/28/24 13:57) n/a lactose Allergy (Unknown, Verified 10/28/24 13:57) severe diarrhea latex Allergy (Unknown, Verified 10/28/24 13:57) itchy rash oxycodone (Percocet) Allergy (Unknown, Verified 10/28/24 13:57) itchy olmesartan Adverse Reaction (Intermediate, Verified 10/28/24 13:57) diarrhea DAIRY PRODUCTS Allergy (Unknown, Uncoded 08/23/24 11:24) severe diarrhea ventolin tabs Allergy (Unknown, Uncoded 08/23/24 11:24) Palpitations Medication List - Last Reconciled 10/28/24 by Pearl Vyas PA-C amlodipine 5 mg PO BID apixaban (Eliquis) 5 mg PO BID blood sugar diagnostic As directed cyanocobalamin (vitamin B-12) 1,000 mcg IM Q4W duloxetine 20 mg PO BID gabapentin 200 mg (2 x 100 mg) PO TID hydralazine 10 mg PO BID hydromorphone 2 mg PO Q6H insulin syringe-needle U-100 use for monthly injections lancets (Accu-Chek Fastclix Lancet Drum) Test blood sugar once a day latanoprost 0.005% 1 drp ophthalmic (eye) BEDTIME levothyroxine 50 mcg PO DAILY loperamide 2 mg PO BID PRN metoprolol succinate ER 50 mg PO BID omeprazole 40 mg PO BID rosuvastatin 5 mg PO DAILY spironolactone 12.5 mg (1/2 x 25 mg) PO DAILY timolol maleate 0.5% 1 drp ophthalmic (eye) QAM trazodone 50 mg PO BEDTIME vancomycin 125 mg PO BID Tobacco use date assessed: 08/23/24 Fall risk assessment: No Falls in past year Last assessed Fall Risk: 10/28/24 Dental Screening Dental Screen Date: 03/11/24 HPI HPI Comments History of Present Illness Details History of Present Illness - The patient is a 79-year-old female pr esenting with a hospital discharge follow-up. She was actually never admitted to the hospital and just went to the emergency department placed on observation and then discharged. - Her and son called EMS on due to increased fatigue and weakness, she was brought to [facility]. - The patient uses a walker and lives wi th her , who has chronic health issues and requires oxygen, complicating his ability to care for her. - Hospital evaluations included normal l abs, negative troponins, EKG with NSR and a head CT showing chronic microvascular ischemic disease and remote infarcts. - Polypharmacy concerns were noted, with misuse of prescribed medications such as morphine, trazodone, and gabapentin. - A toxicology report confirmed opioids, and she was assessed for physical therapy prior to discharge. - Currently, she denies chest pain, sob, dizziness, headaches or extreme fatigue and has resumed her normal sleep pattern. - She is compliant with her medications. - she tells me [facility] set her up with physical therapy and she is starting home physical therapy tomorrow. - she also tells me that her doctor at [facility] in [place], Dr. Rodriges off took her off the morphine and is starting her on Dilaudid, she was given Narcan as well and her daughter is a pharmacist and lives on the next street over. She tells me that they know how to use the Narcan. - She uses a walker with brakes as neede d for safety on hardwood floors throughout home, has no throw rugs in her home. Physical Exam General: Cooperative, healthy appearing, comfortable, no acute distress and well developed Orientation: Patient oriented x3 Limitations: Uses a walker PRN Head: Normal to inspection Ears: Hearing grossly normal bilaterally Nose: Normal External nose present Face and sinus: Normal facial exam Eyes: Appearance normal, both eyes and all related structures Neck: Normal visual inspection and Yes full ROM Respiratory: Normal respiratory effort and able to speak in complete sentences. Skin: No rashes or lesions noted Neuro: Patient oriented x3 Extremities: Scars noted on bilateral knees [facility] Medical History Lumbar spinal stenosis due to adjacent segment disease after fusion procedure Hx of rheumatoid arthritis Hx of ectopic Back pain Arthritis Thyroid disease Diabetes Peptic ulcer Fatty liver Asthma On anticoagulant therapy DVT (deep venous thrombosis) Pulmonary embolism Osteopenia Minor skin laceration Annual physical exam Vitamin B 12 deficiency Vitamin D deficiency Chronic infection of knee joint prosthesis Diarrhea Knee pain Hypothyroidism Normal Pap smear Degenerative joint disease (DJD) of lumbar spine Microscopic colitis GERD (gastroesophageal reflux disease) Factor V deficiency Depression Colitis without complication Hyperglycemia Hyperlipidemia HTN (hypertension) Surgical History History of dental surgery History of release of tendon Hx of hammer toe correction History of bunionectomy of left great toe Hx of cholecystectomy H/O colonoscopy H/O cervical spine surgery History of lumbar surgery History of carpal tunnel syndrome History of knee replacement History of vagotomy History of total abdominal hysterectomy and bilateral salpingo-oophorectomy Family History Father Bladder cancer Mother Hypertension Social History Household Members: Spouse Housing: House Are you a primary health care facility administrator to a significant other at home: No Do you presently have visiting nurse or other home services: No Alcohol intake: never Patient Tobacco Use Status: Never used Tobacco e-Cigarette/Vaping Use: Never Used Second Hand Smoke Exposure: Yes service: No Current occupational status: retired Cognitive needs: No Hearing needs: No Vision needs: Yes Questionnaire Thrive Questionnaire Date Thrive assessed: 03/08/24 I am a: Patient What is your living situation today?: I have a steady place to live Within the past 12 months, did the food you bought not last and you didn't have the money to get more?: Never true Within the past 12 months, did you worry whether your food would run out before you got money to buy more?: Never true Do you have trouble paying for medicines?: No Do you have trouble getting transportation to medical appointments?: No Do you have trouble paying your heating and electricity bill?: No Do you have trouble taking care of your child, family member or friend?: No Do you have trouble with day-to-day activities such as bathing, preparing meals, shopping, managing finances, etc.?: No Are you currently unemployed and looking for a job?: No Are you interested in more education?: No Please select the resources that you would like help with: None Currently or been in a relationship where the following occur: No concerns reported THRIVE Score: 0 ROSALINDA-7 AMB Questionnaire ROSALINDA-7 Date ROSALINDA - 7 assessed: 03/11/24 Source: Developed by Drs. Andrew Pompa, Tasha Barnard, Jonathan Minor and colleagues, with an educational farooq from [employer]. Review of Systems Const All systems reviewed & are unremarkable except as noted in HPI and below Physical exam (Primary Care) Vital Signs: Last Vital Signs Pulse 83 10/28/24 13:57 BP 146/72 H 10/28/24 13:57 Pulse Ox 97 10/28/24 13:57 BMI result Body Mass Index 20.5 Tobacco/Smoking Status: Tobacco use Status Tobacco use date assessed 08/23/24 10/28/24 14:06 Patient Tobacco Use Status Never used Tobacco 10/28/24 14:06 e-Cigarette/Vaping Use Never Used 10/28/24 14:06 Thrive Assessment: Date of Thrive Assessment Date Thrive assessed 03/08/24 10/28/24 14:06 Currently or been in a relationship where the following occur: No concerns reported Coding Level of Care Code Est Pt Level 4 (38842) Diagnoses Fatigue, unspecified type R53.83 Fatigue type: unspecified Weakness generalized R53.1 Assessment & Plan Assessment & Plan (1) Fatigue: Code(s): R53.83 - Other fatigue Category: Medical Qualifiers: Fatigue type: unspecified Qualified Code(s): R53.83 - Other fatigue Plan: Patient was informed and verbally consented to the use of an ambient scribe for clinic note documentation during this visit. 1. Chronic Microvascular Ischemic Disease - As per Head CT at [facility] 10/13/24 during ED visit for fatigue and weakness. - Continue monitoring for any neurological symptoms. - Continue monitoring and manage risk factors such as hypertension. - Advise on dietary modifications, including low sodium intake, and ensure adherence to antihypertensive medications. - Encourage regular blood pressure monitoring at home 2. Polypharmacy - Discontinued morphine and switched to Dilaudid 2 mg every 6 hours as needed by Dr Campos (see below). - Has Narcan, explained how to use and recommended she have her family keep a close eye on her when she starts the Dilaudid. - Follow up with [facility] in [place], Dr Campos, if you develop issues or your fatigue/weakness worsen once starting this medication. - Educate patient and family on proper medication use and the importance of avoiding medication misuse and polypharmacy with Trazodone and gabapentin. (2) Weakness generalized: Code(s): R53.1 - Weakness Category: Medical Plan: - Patient is starting physical therapy at her home tomorrow, recommended when she gets back to her baseline that she have them give her an exercise program which would be safe for her level of fitness and balance.
--- OUTSIDE RECORDS SUMMARY | 2024-10-28 14:44 | XMS_ITS | Patient Health Record ---
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 Name Role Phone Jia Parmar MD Primary Care Provider Unavaila Melina Lundberg Unavailable [phone] Alexandre Williamson Unavailable [phone] Allergies Allergen (clinical drug ingredient) Drug/Non Drug [...] Duration) Notes Start Date End Date Status Lidocaine 5 % 1 patch to intact skin remove after 12 hours Externally Once a day Not-Taking Levalbuterol Tartrate Not-Taking amLODIPine Besylate 5 MG 1 tablet Orally bid Active Spironolactone 25 MG 1 tablet Orally Once a day Active Xopenex Not-Taking Ammonium Molybdate A ctive Antibiotic Active Caltrate 600+D 600-800 MG-UNIT 1 tablet Orally Twice a day Active Timolol Maleate 0.5 % Ophthalmic Not-Taking traMADol HCl Not-Reji ing Qvar 40 MCG/ACT 1 puff Inhalation Twice a day Not-Taking Ultram 50 MG 1 tablet as needed Orally every 6 hrs; Duration: 5 days 02/19/2017 Not-Taking Physical Therapy 3-4x per week for 3-4 weeks Not-Taking Dramamine Not-Taking Nortriptyline HCl 10 MG TK 1 C PO QD HS UTD Orally Not-Taking Prilosec Active Multivitamin Adults 50+ Orally Active Timolol Hemihydrate 0.5 % 1 drop into affected eye Ophthalmic Once a day Active Gabapentin 300 MG 1 capsule Orally Three times a day; Duration: 30 day(s) Not-Taking Synthroid 50 MCG 1 tablet Orally Once a day Active Extra Depth Diabetic Shoes with 3 Pair Custom heat-molded multi-density innersoles for 1 year Dx: Active Physical Therapy . . . 2-3x/week; Duration: 3-4 weeks 07/08/2016 Not-Taking Xalatan 0.005 % 1 drop into affected eye in the evening Ophthalmic Once a day Active Physical Therapy . . . 2-3x/week; Duration: 3-4 weeks 04/10/2016 Not-Taking Colchicine 0.6 MG 1 tablet Orally Once a day; Duration: 30 day(s) 05/02/2016 Not-Taking Physical Therapy . . . 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 06/10/2016 Active Gabapentin 300 1 CAPSULE BEFORE BEDTIME THREE TIMES A DAY ORALLY 30 DAYS; Duration: 30 Active eliquis Active Nortriptyline HCl No t-Taking oxyCODONE HCl 5 MG 0.5 tablet as needed Orally every 6 hrs; Duration: 5 days 08/08/2022 Not-Taking Extra Depth Orthopedic Shoes (1 Pair) with Customized Heat Molded Multidensity Innersoles (3 Pair) as directed Dx: NIDDM/Polyneuropath y (E11.42), Hammertoe Foot Deformity (M20.41,M20.42), Preulcerative Skin Lesion(s) (L85.1 07/13/2018 Not-Taking rOPINIRole HCl FOR RLS Not-T aking Aerochamber Plus Not -Taking Extra Depth Diabetic Shoes with 3 Pair Custom heat-molded multi-density innersoles for 1 year Dx: 10/23/2016 Not-Taking Ammonium Lactate 12 % 1 application Externally to affected areas of dry skin to feet except for between the toes Twice a day; Duration: 30 days Active Diclofenac gel, used with PSK cream up to 4 times a day Not-Taking hydrALAZINE HCl Not- Taking Budesonide 3 MG as directed Orally Once a day Not-Taking Vitamin D3 Not-Takin g traMADol HCl 50 MG 1 tablet as needed Orally every 6 hrs; Duration: 10 days PRN 03/10/2017 Not-Taking Skelaxin 800 MG 1 tablet Orally Three times a day PRN Not-Taking Lexapro 5 MG 1 tablet Orally Once a day Not-Taking ALPRAZolam XR 0.5 MG 1 tablet Orally twice a day Not-Taking NexIUM 40 MG 1 capsule Orally Once a day Not-Taking Xarelto Not-Taking Gabapentin 600 MG TAKE 1 TABLET BY MOUTH THREE TIMES DAILY; Duration: 30 Not-Taking Gabapentin 600 1 TABLET THREE TIMES A DAY ORALLY 30 DAY(S); Duration: 30 Not-Taking Gabapentin 300 MG 1 capsule before bedtime Orally Three times a day; Duration: 30 days Not-Taking Budesonide ER 20 mg Not-Taking Immunizations Vaccine Route Administration Date Status Comme nts Influenza Unknown 12/13/2021 Administered Influenza Unknown 11/01/2022 Administered Influenza Unknown 12/02/2023 Administered Pneumococcal Unknown 11/02/2019 Administered COVID-19 Pfizer BioNTech Vaccine Unknown 03/26/2021 Administered 1st 04/14/20 2nd 05/03/20 3rd 12/03/20 Social History Tobacco Use: Social History Observation Description Date Details (start date - stop date) Never Smoker NA - NA Tobacco use other than smoking: Question Answer Notes Are you an other tobacco user? No Tobacco Control (Standard) Question Answer Notes Tobacco use: Nonsmoker Additional Findings: Tobacco non-user Current no nsmoker AUDIT-C (Standard) Question Answer Notes Did you have a drink containing alcohol in the p ast year? No Points 0 Interpretation Negative Problems Problem Type SNOMED Code ICD Code Onset Dates Problem Status W/U Status Risk Notes Problem Polyneuropathy due to type 2 diabetes mellitus ([id number]) Type 2 diabetes mellitus with diabetic polyneuropathy (E11.42) Active confirmed Vital Signs Blood pressure diastolic 65 mm Hg 09/22/2024 Height 5 ft 0 in in 09/22/2024 Blood pressure systolic 126 mm Hg 09/22/2024 Weight 111 lbs 09/22/2024 BMI 21.68 kg/m2 09/22/2024 Procedures Procedure Date Ordered Date Performed Result Body Sit e 63369-DCFPTYA NAIL, 6 OR MORE 02/18/2024 N/A 60083-AIPK SKIN LESIONS, OVER 4 02/18/2024 N/A 42872-USWULZV NAIL, 6 OR MORE 06/24/2024 N/A 05142-OLEX SKIN LESIONS, OVER 4 06/24/2024 N/A 03123-IZBEZXM NAIL, 6 OR MORE 09/22/2024 N/A 77562-QOWE SKIN LESIONS, OVER 4 09/22/2024 N/A Encounters Encounter Location Date Provider Diagnosis [address] [address] 11/13/2023 Alexandre Williamson Pain in right toe(s) M79.674 ; Other hammer toe(s) (acquired), right foot M20.41 ; Type 2 diabetes mellitus with diabetic polyneuropathy E11.42 ; Exostosis of right foot M89.8X7 ; Atherosclerosis of artery of both lower extremities I70.203 ; Tinea unguium B35.1 and Pain in left toe(s) M79.[address] [address] 02/18/2024 Melina Richteraker Type 2 diabetes mellitus with diabetic polyneuropathy E11.42 ; Tinea unguium B35.1 and Xerosis of skin L85.[address] [address] 06/24/2024 Melina Booth Type 2 diabetes mellitus with diabetic polyneuropathy E11.42 ; Tinea unguium B35.1 ; Other hammer toe(s) (acquired), right foot M20.41 and Other hammer toe(s) (acquired), left foot M20.42 [facility] [address] [address] 09/22/2024 Melina Booth Type 2 diabetes mellitus with diabetic polyneuropathy E11.42 and Tinea unguium B35.[address] [address] 06/24/2024 Melina Booth Assessments Encounter Date Diagnosis (ICD Code) Assessment Notes Treatment Notes Treatment Clinical Notes Section Notes 11/13/2023 Pain in right toe(s) (ICD-10 - M79.674) 02/18/2024 Type 2 diabetes mellitus with diabetic polyneuropathy (ICD-10 - E11.42) 02/18/2024 Tinea unguium (ICD-10 - B35.1) 06/24/2024 Type 2 diabetes mellitus with diabetic polyneuropathy (ICD-10 - E11.42) 06/24/2024 Tinea unguium (ICD-10 - B35.1) 09/22/2024 Type 2 diabetes mellitus with diabetic polyneuropathy (ICD-10 - E11.42) 09/22/2024 Tinea unguium (ICD-10 - B35.1) 11/13/2023 Other [...] Pain in left toe(s) (ICD-10 - M79.675) 09/22/2024 Other Patient Educated with: DIABETIC FOOT CARE INSTRUCTIONS. pdf (DIABETIC FOOT CARE INSTRUCTIONS. pdf) Plan Of Treatment Pending Test Test Name [...] X ray : Foot, right 3V 08/04/2017 31349-FQVSBXF NAIL, 6 OR MORE 10/27/2017 49046-JSVZHHK NAIL, 6 OR MORE 08/04/2017 29205-XHEFGUL NAIL, 6 OR MORE 05/12/2017 32232-KMRMZLY NAIL, 6 OR MORE 06/24/2024 29442-SEIYIUB NAIL, 6 OR MORE 09/22/2024 18057-URUVLHR NAIL, 6 OR MORE 02/18/2024 63800-XSXNIQQ NAIL, 6 OR MORE 2018 44995-EZVRXFG NAIL, 6 OR MORE 03/10/2017 30411-MWPZEMC NAIL, 6 OR MORE 01/06/2017 34776-LNEBMEF NAIL, 6 OR MORE 10/23/2016 16002-SJOGMXJ NAIL, 6 OR MORE 07/25/2016 20728-STAPLIY NAIL, 6 OR MORE 05/10/2016 52250-QQESNDP NAIL, 6 OR MORE 02/14/2016 91132-BEVVKJD NAIL, 6 OR MORE 11/20/2015 37909-MTGCWOX NAIL, 6 OR MORE 07/05/2015 37961-Mkzdmuhh Plate 07/27/2015 47032-Hjeoekzw Plate 05/29/2016 16185-Ozunrula Plate 06/10/2016 79217- Debride <25 sq cm 06/10/2016 41572- Debride <25 sq cm 09/25/2016 18487- Debride <25 sq cm 10/23/2016 67766- Debride <25 sq cm 08/14/2015 04642-CSPO SKIN LESIONS, OVER 4 07/05/19 16 67224-WXVW SKIN LESIONS, OVER 4 11/20/19 16 85495-JKEN SKIN LESIONS, OVER 4 02/14/20 16 85782-IDAE SKIN LESIONS, OVER 4 05/11/19 17 37046-KSCY SKIN LESIONS, OVER 4 10/24/19 17 00658-PVAO SKIN LESIONS, OVER 4 01/07/20 17 29062-OBCN SKIN LESIONS, OVER 4 05/13/19 18 26146-WAYR SKIN LESIONS, OVER 4 03/10/19 18 89323-LESS SKIN LESIONS, OVER 4 02/13/20 21 63548-YJVZ SKIN LESIONS, OVER 4 05/15/19 22 37721-CXLL SKIN LESIONS, OVER 4 02/18/20 24 27859-XBOD SKIN LESIONS, OVER 4 09/23/19 25 19687-VGUD SKIN LESIONS, OVER 4 06/25/19 25 37389-ADIZ SKIN LESIONS, OVER 4 08/05/19 18 91038-VZVD SKIN LESIONS, OVER 4 01/13/20 18 06346-RFYB SKIN LESIONS, OVER 4 10/28/19 18 35480-YJFI SKIN LESIONS, OVER 4 04/13/19 19 68077-BKBC SKIN LESIONS, OVER 4 07/14/19 19 75554-VZDN SKIN LESIONS, OVER 4 10/13/19 19 83863-ZWBY SKIN LESIONS, OVER 4 01/12/20 19 07124-QBJG SKIN LESIONS, OVER 4 04/12/19 20 69847-CIFE SKIN LESIONS, OVER 4 07/14/19 20 04926-NSAL SKIN LESIONS, OVER 4 10/18/19 20 57414-COBV SKIN LESIONS, OVER 4 01/17/20 20 23275-VKUK SKIN LESIONS, OVER 4 04/24/19 21 02704-TFDS SKIN LESIONS, OVER 4 07/25/19 21 64476-MYXT SKIN LESIONS, OVER 4 11/21/19 21 84914-DASY SKIN LESIONS, 2 TO 4 07/26/19 17 75986, S2268-FMCQI/INJECT, JOINT/BURSA 0 04/13/2018 00357, J0702- Neuroma/Injection 11/20/19 16 38005-Ycmrnwnjx, Toes 05/10/2016 46699-Pwfnjbunr, Toes 05/15/2016 76256-Ufqatygxw, Toes 03/12/2023 Next Appt Details Provider Name:Melina Muñoz trenton, 12/23/2024 11:15:00 AM, [address] [place], [address], Insurance Providers Payer Name Payer Address Payer Phone Subscriber Number Group Number Insured Name Patient Relationship to Insured Coverage Start Date Coverage End Date Medicare National Govt [employer] [address] [facility] [place] [address] [phone] [id number] Lynda Leslie Self - patient is the insured [employer]) [address] [place] [address] [id number] Shayan Leslie Spouse - patient is [...] B12 deficiency Surgical History Surgery Date(Month/Year) appendectomy 1959 eptopic 1969 hernia 1982 knee surgery, left - 10 surgeries knee surgery, right - 2 surgeries carpal tunnel surgery finger surgery nerve surgery - spine L2 and L4 2013 Stenosis L4- L5 released pinched nerve hysterectomy foot surgery - Ankit/Kadi,FRANCINE L2nd cataract removal LT 08/22/16 cataract removal RT 09/16/16 enoscopy 01/03/2017 Vericocele Repair - RT leg 05/09/17 Back surgery 01/19 Knee infection 03/2020 pick line 03/2020 laser surgery 07/05/20 vertebrae neck sx 12/20/20 colonoscopy 11/19/21 Mouth Surgery 06/2022 HT repair R4th,5th toes, Exostectomy R 5 th toe P/B 07/31/2022 Back surgery 10/20/23 Hospitalization History Reason Date(Month/Year) [facility] ER- Fall - police told h er to get knee checked out- couldn't walk 12/03/22 Hospital in [place] /[facility] 5 days after sx ba ck blood clot / c.diff 03/2020 [facility]- pancolitis 02/13/19 [facility] X 3 Days, Pt sstates she fell, dx: c oncusion 05/18/2017
--- OUTSIDE RECORDS SUMMARY | 2024-10-28 14:44 | XMS_ITS | Clinical Summary ---
Author Organization [facility] Address [address] [place] [address] Care Team Providers Care Director Global Intelligence Name Role Phone Pcp, No Primary Care [...] 2024 11/20/2023 Influenza Vaccine 10/01/2024 11/20/2023, 12/12/2012 Advance Care Planning Completed 04/14/2024 Hepatitis B Vaccines Aged Out No long er eligible based on patient's age to complete this topic Medical Devices Implanted Type Area Liquor Clerk Device Identifier Shelf Expiration Date Model / Serial / Lot [id number] Insert Articular 3-4 C-H Std [id number] Knee Net Mold Uhmwpe - [id number] Implanted:Qty: 1 on 03/17/2020 by Tray Duncan MD at [facility] Joint Prosthesis Right: Knee [employer] [id number] 04/02/2027 [id number] / / [id number] Oral Implanted:Qty: 3 Oral Tooth Procedures Procedure [...] Maintenance Insurance MEDICARE PART A & B [facility] MEDICARE PART A & B [facility] Advance Directives Documents on File Type Date Recorded Patient Cma Or Lpn Expl anation Advance Directive-Scan 04/14/2024 RX AP PROVAL TO ID Advance Directive-Scan 07/01/2022 APPRO VAHE OF MEDICATION * Full Code (Latest Code Status on File) Date Activated Date Inactivated Comments 03/16/2020 7:24 PM Care Teams Director Global Intelligence Relationship Specialty Start Date End Date Pcp, No PCP - General General Medicine 10/24/20
--- OUTSIDE RECORDS SUMMARY | 2024-10-28 14:45 | XMS_ITS | Clinical Summary ---
Author Organization [facility] Address [address] [place] [address] Phone Care Team Providers Care Mental Hygiene Consultant Name Role Phone Jia Parmar MD Primary Care Provider [phone] Allergies Active Allergy Reactions Criticality Noted Date Comments Albuterol Palpitations,Other,S h ortness of breath,Rash High 12/18/2015 albuterol Cephalosporins Itching,Other,Rash,U n known Low 03/16/2020 cephalexin Gluten Diarrhea,Nausea And Vomiting,Other Low 03/16/2020 wheat gluten extract Indomethacin Itching,Other,Rash 09/16/2016 indomethacin Lactose GI intolerance 10/09/2024 Other Reaction(s): Unknown Latex Hives,Other,Rash,Unk n own Low 12/18/2015 latex Nitrofurantoin Anaphylaxis High 12/18/2015 Oxycodone-Acetaminophen 10/09/2024 Other Reaction(s): Restlessness, Nervousness, Feels like she's wired Sulfa (Sulfonamide Antibiotics) Itching,Nausea And Vomiting Low 03/16/2020 Sulfamethoxazole-Trimeth oprim Unknown 10/09/2024 Medications amLODIPine (NORVASC) 5 mg tablet Take 1 tablet (5 mg total) by mouth 2 (two) times a day. Active Eliquis 5 mg tablet Take 1 tablet (5 mg total) by mouth 2 (two) times a day. Active cefpodoxime (VANTIN) 200 mg tablet Take 1 tablet (200 mg total) by mouth 1 (one) time each day. Active DULoxetine (CYMBALTA) [address] capsule Take 1 capsule (20 mg total) by mouth 2 (two) times a day. 5 Active gabapentin (NEURONTIN) 100 mg capsule Take 1 capsule (100 mg total) by mouth 2 (two) times a day. 5 Active latanoprost (XALATAN) 0.005 % ophthalmic solution Administer 1 drop into both eyes at bedtime. Active levothyroxine (SYNTHROID, LEVOTHROID) 50 mcg tablet Take 1 tablet (50 mcg total) by mouth 1 (one) time each day. Active metoprolol succinate (TOPROL-XL) 50 mg 24 hr tablet Take 1 tablet (50 mg total) by mouth 2 (two) times a day. Active morphine (MSIR) 15 mg tablet Take 1 tablet (15 mg total) by mouth every 4 (four) hours if needed for moderate pain (for back pain). 5 Active omeprazole (PriLOSEC) [address] capsule Take 1 capsule (40 mg total) by mouth 2 (two) times a day. Active rosuvastatin (CRESTOR) 5 mg tablet Take 1 tablet (5 mg total) by mouth 1 (one) time each day. Active timolol (TIMOPTIC) 0.5 % ophthalmic solution Administer 1 drop into both eyes 1 (one) time each day. Active traZODone (DESYREL) 50 mg tablet Take 1 tablet (50 mg total) by mouth at bedtime. Active vancomycin (VANCOCIN) 125 mg capsule Take 1 capsule (125 mg total) by mouth 2 (two) times a day. 4 Active spironolactone (ALDACTONE) 25 mg tablet Take 0.5 tablets (12.5 mg total) by mouth 1 (one) time each day. Active Encounters Date Type Department Care Team Description 10/09/2024 11:00 AM EDT - 10/10/2024 12:32 PM EDT Emergency [facility] Emergency [address] [place] [address] Fede Ontiveros MD Kokkinos, Erika, MD Landry, Jonathan P, MD Ambulatory dysfunction (Primary Dx); Generalized weakness; Hyperthyroidism Discharge Disposition: Home or Self Care from [...] Sign Reading Time Taken Comments Blood Pressure 189/73 10/10/2024 11:24 AM EDT Pulse 76 10/10/2024 11:24 AM EDT Temperature 36.7 C (98.1 F) 10/10/2024 11:24 AM EDT Respiratory Rate 17 10/10/2024 11:24 AM EDT Oxygen Saturation 96% 10/10/2024 11:24 AM EDT Inhaled Oxygen Concentration - - Weight 49.9 kg (110 lb) 10/09/2024 12:17 PM EDT Height 152.4 cm (5') 10/09/2024 12:17 PM EDT Body Mass Index 21.48 10/09/2024 12:17 PM EDT Plan of Treatment Health Maintenance Due Date Last Done Comments Diabetes: Annual Foot Exam 1955 Diabetes: Annual Retina Eye Exam 1955 Cholesterol Screening (Lipid Panel) 02/03/2022 Falls Risk Assessment 02/03/2022 Hepatitis C Screening 02/03/2022 Medicare Annual Wellness Visit 02/03/2022 Social Influencers of Health Screening 02/03/2022 COVID-19 Vaccine ( season) 2023 11/29/2021, 06/10/2021, 03/26/2021, Additional history exists Diabetes: Annual Urine Albumin-Creatinine Ratio (uACR) 02/21/2024 Diabetes: Blood Sugar Control Test (HGBA1C) 02/21/2024 Depression Screening 03/03/2024 Influenza Vaccine (#1) 2024 , 11/29/2022, 11/01/2022, Additional history exists Diabetes: Annual GFR (Glomerular Filtration Rate) 10/09/2025 10/09/2024, 03/19/2020 Hypertension/CHF/CAD Annual BMP Blood Test 10/09/2025 10/09/2024, 03/19/2020 DTaP,Tdap,and Td Vaccines (3 - Td or Tdap) 09/12/2030 09/12/2020, 11/20/2013 Osteoporosis Screening (Bone Density Screening) 11/19/2032 11/19/2022, 07/27/2020, 06/16/2018 Zoster Vaccines Completed 10/13/2017, 06/01, 12/25/2012 Pneumococcal Vaccine: 50+ Years Completed 11/02/2019, 04/05/2014, 11/08/2013, Additional history exists RSV Immunization Adult Patients Completed 11/27/2022 HIB [...] Procedure Name Priority Date/Time Associated Diagnosis Comments ECG ANNOTATED 10/11/2024 DRUG ABUSE SCREEN 8A PANEL, URINE STAT 10/09/2024 2:18 PM EDT URINALYSIS WITH REFLEX MICROSCOPIC STAT 10/09/2024 2:18 PM EDT URINALYSIS WITH REFLEX MICROSCOPIC STAT 10/09/2024 2:18 PM EDT TROPONIN I HIGH SENSITIVITY Timed 10/09/2024 12:[address] HEAD WO CONTRAST STAT 10/09/2024 1 2:05 PM EDT TROPONIN I HIGH SENSITIVITY Timed 10/09/2024 11:40 AM EDT CBC WITH AUTO DIFFERENTIAL STAT 10/09/2024 11:40 AM EDT PHOSPHORUS STAT 10/09/2024 11:40 AM EDT CREATINE KINASE STAT 10/09/2024 11:40 AM EDT THYROID STIMULATING HORMONE STAT 10/09/2024 11:40 AM EDT CBC AND DIFFERENTIAL STAT 10/09/2024 11:40 AM EDT COMPREHENSIVE METABOLIC PANEL STAT 10/09/2024 11:40 AM EDT MAGNESIUM STAT 10/09/2024 11:40 AM EDT ECG 12-LEAD STAT 10/09/2024 11:31 AM EDT LETICIA DEXA AXIAL SKELETON Routine 11/19/2022 11:36 AM EDT Other specified disorders of bone density and structure, other site from Last 3 Months or Most Recently Relevant to Health Maintenance Results * ECG-Annotated (10/11/2024) us Provider Onbase MD ECG ORDERABLES Final Result * Urinalysis with reflex microscopic (10/09/2024 2:18 PM EDT) Specific [place] Urine 1.013 1.003 - 1.030 LAB URINALYSIS - AUTOMATED METHOD 10/09/2024 2:53 PM EDT [facility] pH, Urine 6.0 5.0 - 8.0 pH LAB URINALYSIS - AUTOMATED METHOD 10/09/2024 2:53 PM EDT [facility] Leukocytes, Urine Negative Negative LAB URINALYSIS - AUTOMATED METHOD 10/09/2024 2:53 PM EDT [facility] Nitrite, Urine Negative Negative LAB URINALYSIS - AUTOMATED METHOD 10/09/2024 2:53 PM EDT [facility] Protein, Urine Negative <=Trace mg/dL LAB URINALYSIS - AUTOMATED METHOD 10/09/2024 2:53 PM EDT [facility] Glucose, Urine Negative Negative mg/dL LAB URINALYSIS - AUTOMATED METHOD 10/09/2024 2:53 PM EDT [facility] Ketones, Urine Negative Negative mg/dL LAB URINALYSIS - AUTOMATED METHOD 10/09/2024 2:53 PM EDT [facility] Urobilinogen, Urine 0.2 0.2 - 1.0 mg/dL LAB URINALYSIS - AUTOMATED METHOD 10/09/2024 2:53 PM EDT [facility] Bilirubin, Urine Negative Negative LAB URINALYSIS - AUTOMATED METHOD 10/09/2024 2:53 PM EDT [facility] Blood, Urine Negative Negative LAB URINALYSIS - AUTOMATED METHOD 10/09/2024 2:53 PM T [facility] Urine Urine specimen obtained by clean catch procedure / Unknown Non-blood Collection / Unknown 10/09/2024 2:18 PM EDT 10/09/2024 2:26 PM EDT us Fede Ontiveros MD LAB URINE ORDERABLES Final R esult [facility] [address] [place] [address], * (ABNORMAL) Drug abuse screen 8a panel, urine (10/09/2024 2:18 PM EDT) Amphetamine Screen, Ur Negative Negative LAB CHEMISTRY METHOD 08/09/202 5 3:33 PM EDT [facility] Comment:Certain OTC medicati ons containing ephedrine, phenylephrine, pseudoephedrine and phenylpropanolamine can cause false positive results. Barbiturate Screen, Ur Negative Negative LAB CHEMISTRY METHOD 5 3:33 PM EDT [facility] Benzodiazepine Screen, Ur Negative Negative LAB CHEMISTRY METHOD 5 3:33 PM EDT [facility] Cocaine Screen, Ur Negative Negative LAB CHEMISTRY METHOD 5 3:33 PM EDT [facility] Opiate Screen, Ur Positive(A ) Negative [facility] Cannabinoid (THC) Screen, Ur Negative Negative LAB CHEMISTRY METHOD 5 3:33 PM T [facility] Comment:Specimens from patie nts taking pantoprazole sodium (Protonix) have been shown to produce false positive results. Oxycodone Screen, Ur Negative Negative LAB CHEMISTRY METHOD 5 3:33 PM EDT [facility] Fentanyl, Ur Negative Negative LAB CHEMISTRY METHOD 5 3:33 PM [facility] Urine Urine specimen obtained by clean catch procedure / Unknown Non-blood Collection / Unknown 10/09/2024 2:18 PM EDT 10/09/2024 2:27 PM EDT Narrative [facility] - 10/09/2024 3:33 PM EDT Assay cutoffs: Amphetamines 1000 ng/mL Barbiturates 200 ng/mL Benzodiazepines 200 ng/mL Cocaine 300 ng/mL Fentanyl 1 ng/mL Opiates 300 ng/mL Oxycodone 100 ng/mL THC 50 ng/mL Semi-quantitative assay for screening purposes only. Unconfirmed screening result should not be used for non-medical purposes. *ALTERNATE METHOD CONFIRMATION DONE UPON REQUEST ONLY* Fede Ontiveros MD LAB URINE ORDERABLES Final R esult [facility] [address] [place] [address], [place] [phone] * Troponin I high sensitivity (10/09/2024 12:54 PM EDT) Only the most recent of2 resultswithin the time period is included. High Sensitivity Troponin I 9 <=54 ng/L LAB CHEMISTRY METHOD 10/09/2024 1:36 PM EDT [facility] Blood Venous blood specimen / Unknown Venipuncture / Unknown 10/09/2024 12:54 PM EDT 10/09/2024 1:00 PM EDT Narrative [facility] - 10/09/2024 1:36 PM EDT High levels of biotin in samples may falsely decrease hsTroponin values. Use caution when interpreting hsTroponin results in patients taking biotin who exhibit renal impairment (eGFR <60) or in patients taking more than 20 mg/day of biotin. us Fede Ontiveros MD LAB BLOOD ORDERABLES Final R esult Performing Organization Address [facility] Co de Phone Number [facility] [address] [place] [address], [place] [phone] * CT Head wo Contrast (10/09/2024 12:05 PM EDT) Anatomical Region Laterality Modality Head and Neck Computed Tomogra phy 10/09/2024 12:1 7 PM EDT Impressions 10/09/2024 12:20 PM EDT No acute intracranial findings. Findings suggestive of advanced chronic microvascular ischemic disease. Small areas of encephalomalacia in the left cerebellum suggesting sequela of remote infarcts. -------- FINAL REPORT -------- Dictated By: Tawanda Tamayo Dictated Date: 10/09/2024 12:17 ET Assigned Physician: Tawanda Tamayo Reviewed and Electronically Signed By: Tawanda Tamayo Signed Date: 10/09/2024 12:20 ET Workstation ID: [id number] Transcribed By: Self Edit Transcribed Date: 10/09/2024 12:17 ET Narrative 10/09/2024 12:20 PM EDT PROCEDURE: Noncontrast head CT. HISTORY: fatigue, generalized weakness. COMPARISON: 10/30/2022. TECHNIQUE: Noncontrast head CT with coronal and sagittal reformats. Dose length product: 717 mGy-cm. FINDINGS: BRAIN: No hemorrhage, edema, mass, or extra-axial fluid collection. No CT evidence of an acute large vessel infarct. Ventricles and sulci are age commensurate. Atherosclerotic calcifications of the vertebral arteries and carotid siphons. Patchy hypoattenuation in the supratentorial white matter suggestive of advanced chronic microvascular ischemic disease. Small areas of encephalomalacia in the left cerebellum suggesting sequela of remote small vessel infarcts. ORBITS: Normal. SINUSES/MASTOIDS: The left frontal sinus is not pneumatized. Mucosal thickening in the posterior left ethmoid air cells The other visualized paranasal sinuses are unremarkable. Mastoids and middle ear spaces are clear. CALVARIUM: Normal. OTHER: The skull base soft tissues are normal. Procedure Note Tawanda Tamayo MD - 10/09/2024 PROCEDURE: Noncontrast head CT. HISTORY: fatigue, generalized weakness. COMPARISON: 10/30/2022. TECHNIQUE: Noncontrast head CT with coronal and sagittal reformats. Dose length product: 717 mGy-cm. FINDINGS: BRAIN: No hemorrhage, edema, mass, or extra-axial fluid collection. No CTevidence of an acute large vessel infarct. Ventricles and sulci are agecommensurate. Atherosclerotic calcifications of the vertebral arteriesand carotid siphons. Patchy hypoattenuation in the supratentorial whitematter suggestive of advanced chronic microvascular ischemic disease.Small areas of encephalomalacia in the left cerebellum suggesting sequelaof remote small vessel infarcts. ORBITS: Normal. SINUSES/MASTOIDS: The left frontal sinus is not pneumatized. Mucosalthickening in the posterior left ethmoid air cells The other visualizedparanasal sinuses are unremarkable. Mastoids and middle ear spaces areclear. CALVARIUM: Normal. OTHER: The skull base soft tissues are normal. IMPRESSION: No acute intracranial findings. Findings suggestive of advanced chronic microvascular ischemic disease.Small areas of encephalomalacia in the left cerebellum suggesting sequelaof remote infarcts. -------- FINAL REPORT -------- Dictated By: Tawanda Tamayo Dictated Date: 10/09/2024 12:17 ET Assigned Physician: Tawanda Tamayo Reviewed and Electronically Signed By: Tawanda Tamayo Signed Date: 10/09/2024 12:20 ET Workstation ID: [id number] Transcribed By: Self Edit Transcribed Date: 10/09/2024 12:17 ET us Fede Ontiveros MD IMG CT PROCEDURES Final Resu lt * (ABNORMAL) CBC auto differential (10/09/2024 11:40 AM EDT) WBC 11.0(H) 4.8 - 10.8 K/mcL LAB HEMETOLOGY METHOD 10/09/2024 11:53 AM [facility] RBC 3.70(L) 3.80 - 4.80 M/mcL LAB HEMETOLOGY METHOD 10/09/2024 11:53 AM [facility] Hemoglobin 11.0(L) 11.5 - 16.0 g/dL LAB HEMETOLOGY METHOD 10/09/2024 11:53 AM [facility] Hematocrit 33.3(L) 35.0 - 47.0 % LAB HEMETOLOGY METHOD 10/09/2024 11:53 AM [facility] MCV 90.0 79.0 - 98.0 FL LAB HEMETOLOGY METHOD 10/09/2024 11:53 AM [facility] MCH 29.7 27.0 - 32.0 pcg LAB HEMETOLOGY METHOD 10/09/2024 11:53 AM [facility] MCHC 33.0 32.0 - 37.0 g/dL LAB HEMETOLOGY METHOD 10/09/2024 11:53 AM [facility] RDW 12.5 11.0 - 15.0 % LAB HEMETOLOGY METHOD 10/09/2024 11:53 AM [facility] Platelets 229 130 - 400 K/mcL LAB HEMETOLOGY METHOD 10/09/2024 11:53 AM [facility] MPV 10.8 7.0 - 11.0 FL LAB HEMETOLOGY METHOD 10/09/2024 11:53 AM [facility] NRBC 0.0 <1.0 % LAB HEMETOLOGY METHOD 10/09/2024 11:53 AM [facility] NRBC Absolute 0.00 <0.10 K/mcL LAB HEMETOLOGY METHOD 10/09/2024 11:53 AM [facility] Neutrophils Relative 75.1 % LAB HEMETOLOGY METHOD 10/09/2024 11:53 AM [facility] Lymphocytes Relative 17.1 % LAB HEMETOLOGY METHOD 10/09/2024 11:53 AM [facility] Monocytes Relative 5.4 % LAB HEMETOLOGY METHOD 10/09/2024 11:53 AM [facility] Eosinophils Relative 1.4 % LAB HEMETOLOGY METHOD 10/09/2024 11:53 AM [facility] Basophils Relative 0.5 % LAB HEMETOLOGY METHOD 10/09/2024 11:53 AM [facility] Immature Granulocytes Relative 0.5 % LAB HEMETOLOGY METHOD 10/09/2024 11:53 AM [facility] Neutrophils Absolute 8.23(H) 1.50 - 7.00 K/mcL LAB HEMETOLOGY METHOD 10/09/2024 11:53 AM [facility] Lymphocytes Absolute 1.87 1.00 - 5.00 K/mcL LAB HEMETOLOGY METHOD 10/09/2024 11:53 AM [facility] Monocytes Absolute 0.59 0.20 - 1.00 K/mcL LAB HEMETOLOGY METHOD 10/09/2024 11:53 AM EDT [facility] Eosinophils Absolute 0.15 0.00 - 0.50 K/mcL LAB HEMETOLOGY METHOD 10/09/2024 11:53 AM EDT [facility] Basophils Absolute 0.06 0.00 - 0.20 K/[facility] LAB HEMETOLOGY METHOD 10/09/2024 11:53 AM EDT [facility] Immature Granulocytes Absolute 0.05(H) 0.00 - 0.03 K/[facility] LAB HEMETOLOGY METHOD 10/09/2024 11:53 AM EDT [facility] Blood Venous blood specimen / Unknown Venipuncture / Unknown 10/09/2024 11:40 AM EDT 10/09/2024 11:46 AM EDT Fede Ontiveros MD LAB BLOOD ORDERABLES Final R esult Performing Organization Address City/[facility]/ZIP Co de Phone Number [facility] [address] [place] [address], * (ABNORMAL) Thyroid Stimulating Hormone (TSH) (10/09/2024 11:40 AM EDT) TSH 0.30(L) 0.40 - 4.00 mcIU/mL LAB CHEMISTRY METHOD 10/09/2024 12:47 PM EDT [facility] Blood Venous blood specimen / Unknown Venipuncture / Unknown 10/09/2024 11:40 AM EDT 10/09/2024 11:47 AM EDT Fede Ontiveros MD LAB BLOOD ORDERABLES Final R esult Performing Organization Address City/[facility]/ZIP Co de Phone Number [facility] [address] [place] [address], [place] [phone] * Phosphorus (10/09/2024 11:40 AM EDT) Phosphorus 4.2 2.5 - 4.5 mg/dL LAB CHEMISTRY METHOD 10/09/2024 12:16 PM EDT [facility] Blood Venous blood specimen / Unknown Venipuncture / Unknown 10/09/2024 11:40 AM EDT 10/09/2024 11:47 AM EDT us Fede Ontiveros MD LAB BLOOD ORDERABLES Final R esult [facility] [address] [place] [address], [place] [phone] * Magnesium (10/09/2024 11:40 AM EDT) [facility] Magnesium 2.0 1.9 - 2.6 mg/dL LAB CHEMISTRY METHOD 10/09/2024 12:16 PM EDT [facility] Blood Venous blood specimen / Unknown Venipuncture / Unknown 10/09/2024 11:40 AM EDT 10/09/2024 11:47 AM EDT us Fede Ontiveros MD LAB BLOOD ORDERABLES Final R esult [facility] [address] [place] [address], [place] [phone] * Creatine kinase (10/09/2024 11:40 AM EDT) Total CK 103 22 - 269 unit/L LAB CHEMISTRY METHOD 10/09/2024 12:16 PM EDT [facility] Blood Venous blood specimen / Unknown Venipuncture / Unknown 10/09/2024 11:40 AM EDT 10/09/2024 11:47 AM EDT us Fede Ontiveros MD LAB BLOOD ORDERABLES Final R esult [facility] [address] [place] [address], * (ABNORMAL) Comprehensive Metabolic Panel (CMP) (10/09/2024 11:40 AM EDT) Sodium 139 133 - 145 mmol/L LAB CHEMISTRY METHOD [facility] Potassium 4.4 3.5 - 5.5 mmol/L LAB CHEMISTRY METHOD 10/09/2024 12:16 PM [facility] Chloride 109 96 - 110 mmol/L LAB CHEMISTRY METHOD 10/09/2024 12:16 PM [facility] CO2 26 21 - 32 mmol/L LAB CHEMISTRY METHOD 10/09/2024 12:16 PM [facility] Anion Gap 4 3 - 11 LAB CHEMISTRY METHOD 10/09/2024 12:16 PM [facility] Glucose 129(H) 70 - 100 mg/dL LAB CHEMISTRY METHOD 10/09/2024 12:16 PM [facility] BUN 31(H) 5 - 25 mg/dL LAB CHEMISTRY METHOD 10/09/2024 12:16 PM [facility] Creatinine 1.22(H) 0.50 - 1.10 mg/dL LAB CHEMISTRY METHOD 10/09/2024 12:16 PM [facility] eGFR 45(L) >=60 mL/min/1. 73m2 LAB CHEMISTRY METHOD 10/09/2024 12:16 PM [facility] Comment:Calculation based on the Chronic Kidney Disease Epidemiology Collaboration (CKD-EPI) equation refit without adjustment for race. BUN/Creatinine Ratio 25.4 LAB CHEMISTRY METHOD 10/09/2024 12:16 PM [facility] Calcium 9.2 8.5 - 10.5 mg/dL LAB CHEMISTRY METHOD 10/09/2024 12:16 PM EDT [facility] AST (SGOT) 31 10 - 42 unit/L LAB CHEMISTRY METHOD 10/09/2024 12:16 PM EDT [facility] ALT (SGPT) 41 10 - 60 unit/L LAB CHEMISTRY METHOD 10/09/2024 12:16 PM EDT [facility] Alkaline Phosphatase 65 42 - 121 unit/L LAB CHEMISTRY METHOD 10/09/2024 12:16 PM EDT [facility] Total Protein 6.2 6.0 - 8.0 g/dL LAB CHEMISTRY METHOD 10/09/2024 12:16 PM EDT [facility] Albumin 3.6 3.2 - 5.0 g/dL LAB CHEMISTRY METHOD 10/09/2024 12:16 PM EDT [facility] Total Bilirubin 0.5 0.0 - 1.4 mg/dL LAB CHEMISTRY METHOD 10/09/2024 12:16 PM EDT [facility] Blood Venous blood specimen / Unknown Venipuncture / Unknown 10/09/2024 11:40 AM EDT 10/09/2024 11:47 AM EDT Fede Ontiveros MD LAB BLOOD ORDERABLES Final R esult [facility] [address] [place] [address], * 12-Lead ECG (10/09/2024 11:31 AM EDT) Ventricular Rate ECG 68 BPM GEMUSE Atrial Rate 68 BPM GEMUSE P-R Interval 168 ms GEMUSE QRS Duration 84 ms GEMUSE Q-T Interval 438 ms GEMUSE QTc 465 ms GEMUSE P Wave [place] -11 degrees GEMUSE R [place] -13 degrees GEMUSE T [place] 19 degrees GEMUSE ECG Interpretation Normal sinus rhythm Septal infarct (cited on or before 09-DEC-2020) Inferior infarct (cited on or before 13-FEB-2019) When compared with ECG of 09-OCT-2021 10:59, No significant change was found Confirmed by JANEE GUADALUPE ([id number]) on 10/11/2024 12:20:23 AM GEMUSE 10/09/2024 11:3 1 AM EDT 10/11/2024 12:20 AM EDT us Fede Ontiveros MD ECG ORDERABLES Final Result DOMINIC * LETICIA DEXA AXIAL SKELETON (11/19/2022 11:36 AM EDT) Anatomical Region Laterality Modality Mammography 11/19/2022 8:53 AM EDT Narrative 11/19/2022 11:36 AM EDT [facility] Diagnostic Imaging Department [address] [place], [place] [address] Patient: VILLAHEBER /Age/Sex: 1945 - 77 - F Unit#: [id number] [facility] Ordering Physician: JOSE SAMUELS MD Leticia Dexa Axial Skeleton - 11/19/22920 Report Status:Signed HISTORY: The patient is a 77-year-old postmenopausal female with clinical concern for metabolic bone disease. FINDINGS: Dual [...] 108% of that of age matched controls. This yields a T-score of -1.7 and a [...] the prior examination of 07/27/2020. There has been an increase of 5.1% in bone mineral density in the right femur and an increase of 6.0% in bone mineral density in the left femur. 2. FRAX analysis yields a 10-year probability of major osteoporotic fracture of 15.3% and a 10-year probability of hip fracture of 4.7%. Code 04580 Dictating Physician: CLIVE BREWER MD Electronically Signed by: CLIVE BREWER MD Dic Date/Time: 11/19/22 1133 Sign date/Time: 11/19/22 1136 Procedure Note Clive Brewer MD - 04/08/2023 [facility] Diagnostic Imaging Department [address] [place] [address] Patient: HEBER LESLIE Apoorva /Age/Sex: 1945 - 77 - F Unit#: [id number] Location/Status: SPDIMAM/REG CLI Mnemonic[facility] Ordering Physician: JOSE SAMUELS MD Leticia Dexa [...] density of the femurs bilaterally is 0.799 gm/pw3ysfet is 79% of that of young normals [...] probability of hip fracture of 4.7%. 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
--- OUTSIDE RECORDS SUMMARY | 2024-10-28 14:45 | XMS_ITS | Clinical Summary ---
Author Organization [facility] Address [address] [place] [address] Phone Care Team Providers Care Speech Therapist Technician Name Role Phone Jia Parmar MD Primary Care Provider [phone] Allergies Active Allergy Reactions Criticality Noted Date Comments Adhesive Itching Low 09/16/2016 Albuterol Arrhythmia Medium 12/18/2015 Amoxicillin Diarrhea Medium 12/18/2015 Indocin (Indomethacin) Itching 09/16/2016 Latex Hives 12/18/2015 Macrodantin (Nitrofurantoin Macrocrystal) Anaphylaxis High 12/18/2015 Sulfa (Sulfonamide Antibiotics) Anaphylaxis High Ventolin Hfa (Albuterol Sulfate) Palpitations Low 0 09/16/2016 Wheat Diarrhea 12/18/2015 Medications ALPRAZolam (XANAX) 0.25 MG tablet Take 0.25 mg by mouth nightly as needed for sleep. Active amLODIPine (NORVASC) 2.5 MG tablet Take 2.5 mg by mouth daily. Active rosuvastatin (CRESTOR) 5 MG tablet Take 5 mg by mouth daily. Active escitalopram oxalate (LEXAPRO) 10 MG tablet Take 10 mg by mouth daily. Active eszopiclone (LUNESTA) 1 MG Tab Take 1 mg by mouth nightly. Take immediately before bedtime Active esomeprazole (NEXIUM) 20 MG capsule Take 20 mg by mouth daily before breakfast. Active beclomethasone (QVAR) 40 mcg/actuation inhaler Inhale 2 puffs into the lungs 2 (two) times a day. Active metaxalone (SKELAXIN) 800 MG tablet Take 800 mg by mouth 3 (three) times a day. Active levothyroxine (SYNTHROID, LEVOTHROID) 100 MCG tablet Take 100 mcg by mouth every morning. Active rivaroxaban (XARELTO) 10 mg tablet Take 10 mg by mouth daily. Active levalbuterol (XOPENEX) 0.31 mg/3 mL nebulizer solution Take 1 ampule by nebulization every 4 (four) hours as needed for wheezing. Active difluprednate (DUREZOL) 0.05 % Drop Place 1 drop into the right eye 3 (three) times a day. Starting 3 days before eye surgery 5 mL 3 7 Active Additional Information Patient not taking.Reported on 10/24/2016 ketorolac (ACULAR LS) 0.4 % Drop Place 1 drop into the right eye 3 (three) times a day. Starting 3 days before eye surgery 5 mL 3 7 Active Additional Information Patient not taking.Reported on 10/24/2016 ofloxacin (OCUFLOX) 0.3 % ophthalmic solution Place 1 drop into the right eye 3 (three) times a day. Starting 3 days before eye surgery 5 mL 3 7 Active Additional Information Patient not taking.Reported on 10/24/2016 Active Problems Problem Noted Date Diagnosed Date Age-related nuclear cataract of both eyes 2016 Celiac disease 12/18/2015 Overview (03/23/2016): Celiac disease Lactose intolerance 12/18/2015 Overview (03/23/2016): Lactose intolerance Type 2 diabetes mellitus 12/18/2015 Overview (03/23/2016): Type 2 diabetes mellitus Anemia 12/18/2015 Overview (03/23/2016): Anemia Age-related macular degeneration 12/18/2015 Overview (03/23/2016): Age related macular degeneration; Bilateral Hypertensive disorder 12/18/2015 Overview (03/23/2016): Hypertension Hypercholesterolemia 12/18/2015 Overview (03/23/2016): Hypercholesterolemia Pulmonary embolism 12/18/2015 Overview (03/23/2016): Pulmonary embolism Deep vein thrombosis (DVT) 12/18/2015 Overview (03/23/2016): Deep venous thrombosis Asthma 12/18/2015 Overview (03/23/2016): Asthma Osteoarthritis 12/18/2015 Overview (03/23/2016): Osteoarthritis Vertigo 12/18/2015 Overview (03/23/2016): Vertigo Memory loss 12/18/2015 Overview (03/23/2016): Amnesia Family History Medical History Relation Comments Macular degeneration Mother Diabetes Paternal Grandmother Relation Status Comments Mother Paternal Grandmother Social History Tobacco Use Types Packs/Day Years Used Date Smoking Tobacco: Never Smokeless Tobacco: Never Alcohol Use Standard Drinks/Week Comments No 0 (1 standard drink = 0.6 oz pur e alcohol) Education Answer Date Recorded Are you interested in more education? Not on vale e 06/28/2022 Are you concerned about learning? Not on file 06/28/2022 No 06/28/2022 No 06/28/2022 Digital Access Answer Date Recorded No 07/29/2022 No 07/29/2022 No 07/29/2022 Reliable internet access at home? Not on file 07/29/2022 Device with a working camera? Not on file Comments Unknown Sex and Gender Information Value Date Recorded Sex Assigned at Not on file Legal Sex Female 12:30 PM EDT Gender Identity Not on file Sexual Orientation Not on file Last Filed Vital Signs Vital Sign Reading Time Taken Comments Blood Pressure 136/74 09/16/2016 4:43 PM EDT Pulse 71 09/16/2016 4:43 PM EDT Temperature 36.8 C (98.2 F) 09/16/2016 2:50 PM EDT Respiratory Rate 26 09/16/2016 4:43 PM EDT Oxygen Saturation 97% 09/16/2016 4:43 PM EDT Inhaled Oxygen Concentration - - Weight - - Height - - Body Mass Index - - Plan of Treatment Health Maintenance Due Date Last Done Comments BLOOD PRESSURE 1945 CREATININE LEVEL 1945 HEMOGLOBIN A1C 1945 TSH LEVEL 1945 DEPRESSION SCREENING 1957 HEPATITIS C SCREENING 1963 OSTEOPOROSIS SCREENING INITIAL (ONE-TIME) 2010 URINE MICROALBUMIN/CREATININE RATIO 03/23/2016 DIABETIC EYE EXAM 10/24/2017 10/24/2016, , 10/24/2016, Additional history exists RSV VACCINE (1 - 1-dose 75+ series) 01/13/2020 COVID-19 VACCINE (2023- season) 2023 05/03/2020, 04/12/2020 Adult Td,Tdap Booster 11/21/2023 11/20/2013 PNEUMOCOCCAL VACCINES (50+ years) Completed 04/05/2014, 12/25/2012, 04/15/2011 SMOKING STATUS SCREENING (Once After 26 Yrs) Completed 10/24/2016 ZOSTER VACCINES Completed 10/13/2017, 06/01, 12/25/2012 HEPATITIS A VACCINES Aged Out No long er eligible based on patient's age to complete this topic HIB VACCINES Aged Out No longer eligi ble based on patient's age to complete this topic MENINGOCOCCAL VACCINES (ACWY) Aged Out No longer eligible based on patient's age to complete this topic MENINGOCOCCAL VACCINES (B) Aged Out N o longer eligible based on patient's age to complete this topic Medical Devices Implanted Type Area Ditch Digger Device Identifier Shelf Expiration Date Model / Serial / Lot Iol Softport Ao [id number] 31.0d-08/14/2016 Implanted:2016 (Quantity not on file) MEDLINE 06/30/2018 Description:OS Iol Softport Ao [id number] 30.0d-09/16/2016 Implanted:2016 (Quantity not on file) MEDLINE 07/31/2020 Description:OD Insurance MEDICARE PART A & B [facility] TOTAL CHOICE INDEMNITY MEDICARE PART A & B [facility] TOTAL CHOICE INDEMNITY Care Teams Speech Therapist Technician Relationship Specialty Start Date End Date Jia Parmar MD [address] [place] [address] PCP - General Internal Medicine 10/24/16 Additional Source Comments The information contained in this document represents components of the legal health record. It is not the complete legal health record.[facility]
--- OUTSIDE RECORDS SUMMARY | 2024-10-28 14:45 | XMS_ITS | Clinical Summary ---
Author Organization [facility] Address [address] [place] [address] Care Team Providers Care College Director Name Role Phone Jia Parmar MD Primary Care Provider Social History Tobacco Use Types Packs/Day Years [...] 1-dose 75+ series) 01/13/2020 Influenza Vaccine (#1) 2024 Hepatitis B Vaccines Aged Out No long er eligible based on patient's age to complete this topic RSV Ped < 20 months Aged Out No longe r eligible based on patient's age to complete this topic Care Teams College Director Relationship Specialty Start Date End Date Jia Parmar MD [address] [facility] [place] [phone] PCP - General Apple Press Operator 12/09/18
--- OUTSIDE RECORDS SUMMARY | 2024-10-28 14:45 | XMS_ITS ---
Author Name [facility] Organization Unknown History of Medication Use Medication Directions Dispensed Refills Start Date End Date Stat us cefpodoxime (VANTIN) 200 MG tablet Take 1 tablet (200 mg total) by mouth daily. 12/10/2022 10/01/2023 active amLODIPine (NORVASC) 5 MG tablet Take 5 mg by mouth daily. Twice a day active gabapentin (NEURONTIN) 600 MG tablet Take 600 mg by mouth 3 (three) times a day. active levothyroxine (SYNTHROID, LEVOTHROID) 50 MCG tablet Take 5 mcg by mouth daily on an empty stomach. Takes - active OMEprazole (PriLOSEC) 40 MG capsule Take 40 mg by mouth every morning before breakfast. active rivaroxaban (XARELTO) 20 MG tablet Take 20 mg by mouth daily. Takes in the morning active timolol (BETIMOL) 0.5 % ophthalmic solution Administer 1 drop to both eyes daily. active traZODone (DESYREL) 50 MG tablet Take 50 mg by mouth nightly. active Allergies Allergen Reaction Severity Comment Documented Date Source Statu s SULFA ANTIBIOTICS GI INTOLERANCE/NAUSEA/ VOMITING 03/16/2020 [facility] active ALBUTEROL SHORTNESS OF BREATH [facility] CEPHALEXIN ITCHING [facility] LATEX RASH/DERMATITIS [facility] NITROFURANTOIN ANAPHYLAXIS [facility] OTHER COUGH perfumes [facility] TILACTASE GI INTOLERANCE/NAUSEA/ VOMITING [facility] Problems Problem Status Onset Date Problem Type Date of Resolution Source Restless leg syndrome active 2020-03-17 ProblemAct [facility] C. difficile colitis active EncounterDiagnosisA ct [facility] Benign essential HTN active 2020-03-17 ProblemAct [facility] Acquired hypothyroidism active 2020-03-17 ProblemAct [facility] GERD (gastroesophageal reflux disease) active 2020-03-17 ProblemAct [facility] Type 2 diabetes mellitus without complication, without long-term current use of insulin active 2020-03-17 ProblemAct [facility] Depression active 2020-03-17 ProblemAct [facility] Glaucoma active 2020-03-17 ProblemAct [facility] Infection of prosthetic knee joint active 2020-03-16 ProblemAct [facility] HLD (hyperlipidemia) active 2020-03-17 ProblemAct [facility] Encounters Encounter Type Encounter Reason Primary Diagnosis Location Date Ambulatory [id number] 12/16/2023 Ambulatory Infection and inflammatory reaction due to internal right knee prosthesis, subsequent encounter Infection and inflammatory reaction due to internal right knee prosthesis, subsequent encounter [facility] 12/10/2022 Care Team Organization Name Specialty Phone Email Start Date End Da te [facility] PCP,No Primary Care 12/10/2022 05/19/2024 [facility] NO PCP Primary Care 12/10/2022 12/10/2022
--- OUTSIDE RECORDS SUMMARY | 2024-12-09 20:00 | XMS_ITS | Clinical Summary ---
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 Active 03-03 [...] capsule,del ayed release 10-06 00:00: 00 Yes [id number] 1 capsule 2 TIMES DAILY 1 capsule 2 TIMES DAILY (route: oral) Med Classific ation: Gastroint estinal Therapy Agents amlodipine 5 mg tablet 10-05 00:00: 00 Yes [id number] 1 tablet DAILY 1 tablet DAILY (route: oral) Med Classific ation: Cardiovas cular Therapy Agents levothyroxi ne 50 mcg tablet 10-05 00:00: 00 Yes [id number] Per instruc tions DAILY Per instructio ns DAILY (route: oral) Med Classific ation: Endocrine trazodone 50 mg tablet 10-05 00:00: 00 Yes [id number] Per instruc tions FOR BEDTIME Per instructio ns FOR BEDTIME (route: oral) Med Classific ation: Central Nervous System Agents vancomycin 125 mg capsule 09-26 00:00: 00 Yes [id number] Per instruc tions 2 (TWO) TIMES A DAY Per instructio ns 2 (TWO) TIMES A DAY (route: oral) Med Classific ation: Anti-Infe ctive Agents duloxetine 20 mg capsule,del ayed release 09-10 00:00: 00 Yes [id number] Per instruc tions 2 TIMES A DAY Per instructio ns 2 TIMES A DAY (route: oral) Med Classific ation: Central Nervous System Agents Eliquis 5 mg tablet 09-10 00:00: 00 Yes [id number] Per instruc tions TWICE A DAY Per instructio ns TWICE A DAY (route: oral) Med Classific ation: Hematolog ical Agents cefpodoxime 200 mg tablet 10-11 00:00: 00 10-16 23:59 :00 No [id number] 1 tablet DAILY 1 tablet DAILY (route: oral) Med Classific ation: Anti-Infe ctive Agents gabapentin 100 mg capsule 10-12 00:00: 00 Yes [id number] 1 capsule 2 TIMES DAILY 1 capsule 2 TIMES DAILY (route: oral) Med Classific ation: Central Nervous System Agents latanoprost 0.005 % eye drops 10-12 00:00: 00 Yes [id number] 1 drops BEDTIME 1 drops BEDTIME (route: ophthalmic (eye)) Med Classific ation: Ophthalmi c Agents metoprolol succinate ER 50 mg tablet,exte nded release 24 hr 10-12 00:00: 00 Yes [id number] 1 tablet 2 TIMES DAILY 1 tablet 2 TIMES DAILY (route: oral) Med Classific ation: Cardiovas cular Therapy Agents morphine 15 mg immediate release tablet 10-12 00:00: 00 Yes [id number] 1 tablet NEEDED 1 tablet NEEDED (route: oral) Med Classific ation: Analgesic , Anti-infl ammatory or Antipyret ic rosuvastati n 5 mg tablet 10-12 00:00: 00 Yes [id number] 1 tablet BEDTIME 1 tablet BEDTIME (route: oral) Med Classific ation: Cardiovas cular Therapy Agents spironolact one 25 mg tablet 10-12 00:00: 00 Yes [id number] 0.5 tablet DAILY 0.5 tablet DAILY (route: oral) Med Classific ation: Cardiovas cular Therapy Agents timolol 0.5 % eye drops 10-12 00:00: 00 Yes [id number] 1 drops DAILY 1 drops DAILY (route: ophthalmic (eye)) Med Classific ation: Ophthalmi c Agents Immunizations Ordered Immunization Name Filled Immunization Name Date Status Comments Refusal Reason INFLUENZA, TIV (INACTIVATED) 2023-11-19 00:00:00 Vital Signs Vital Name Observation Time Observation Value Commen ts Temperature 2024-10-25 11:01:00.000 98 [degF] Temperature 2024-10-22 10:20:00.000 98 [degF] Temperature 2024-10-18 11:00:00.000 98.1 [degF] Temperature 2024-10-15 13:05:00.000 98.1 [degF] Temperature 2024-10-12 12:02:00.000 97 [degF] BMI (%) 2024-10-12 18:32:26.000 20 kg/m2 Height 2024-10-12 18:32:21.000 60 [in_us] Pulse 2024-10-22 10:20:00.000 76 /min Pulse 2024-10-18 11:00:00.000 62 /min Pulse 2024-10-15 13:05:00.000 74 /min Pulse 2024-10-12 12:02:00.000 84 /min O2 Saturation (%) 2024-10-25 11:01:00.000 96 % O2 Saturation (%) 2024-10-22 10:20:00.000 98 % O2 Saturation (%) 2024-10-18 11:00:00.000 98 % O2 Saturation (%) 2024-10-15 13:05:00.000 98 % O2 Saturation (%) 2024-10-12 12:02:00.000 97 % Respirations 2024-10-25 11:01:00.000 18 /min Respirations 2024-10-22 10:20:00.000 18 /min Respirations 2024-10-18 11:00:00.000 18 /min Respirations 2024-10-15 13:05:00.000 18 /min Respirations 2024-10-12 12:02:00.000 18 /min Weight (lbs) 2024-10-12 18:32:26.000 106 [lb_av] Systolic Blood Pressure 2024-10-25 11:01:00.000 152 mm [Hg] Systolic Blood Pressure 2024-10-22 10:20:00.000 144 mm [Hg] Systolic Blood Pressure 2024-10-18 11:00:00.000 150 mm [Hg] Systolic Blood Pressure 2024-10-15 13:06:00.000 150 mm [Hg] Systolic Blood Pressure 2024-10-12 18:58:00.000 158 mm [Hg] Diastolic Blood Pressure 2024-10-25 11:01:00.000 [...] CVA, RISK FACTORS, AND METHODS TO MANAGE GENERAL HANDLING SUPERVISOR EFFECTS OF CVA. [code = SKILLED NURSE [...] MAINTAIN SITUATIONAL AWARENESS AND WILL NOTIFY CLINICAL EXERCISE PHYSIOLOGIST AND PHYSICIAN/PROVIDER WITH ANY CHANGE IN CONDITION. [code = SKILLED NURSE TO PERFORM ENVIRONMENTAL SAFETY RISK ASSESSMENT AND FALL RISK ASSESSMENT AND PROVIDE INSTRUCTION TO IMPLEMENT ENVIRONMENTAL SAFETY AND FALL PREVENTION STRATEGIES THROUGHOUT THE CERTIFICATION PERIOD. SKILLED NURSE WILL MAINTAIN SITUATIONAL AWARENESS AND WILL NOTIFY CLINICAL EXERCISE PHYSIOLOGIST AND PHYSICIAN/PROVIDER WITH ANY CHANGE IN CONDITION.] [...] CARE WILL BE ESTABLISHED THAT MEETS PATIENT'S SNF NEEDS AND INCLUDES PATIENT GOAL FOR HOME [...] Notes Progress Notes <paragraph>[Visit Date: 2024 by ALISHA PINZON LPN]:</paragraph><paragraph>SNV 10/25</paragraph><paragraph></paragraph><paragraph>ABNORMAL VITALS: WITHIN PATIENT'S ESTABLISHED PARAMETERS</paragraph><paragraph></paragraph><paragraph>FALLS: NO FALLS, USES WALKER </paragraph><paragraph></paragraph><paragraph>MEDICATION CHANGES: NO CHANGES </paragraph><paragraph></paragraph><paragraph>OBSERVATION AND ASSESSMENT PROVIDED: PATIENT IS ALERT AND ORIENTED X3 PLEASANT AND COOPERATIVE DURING VISIT. IS ALSO PRESENT. PATIENT REALIZED TODAY SHE WAS TAKING LOWER DOSE OF METOPROLOL, 25 MG BID INSTEAD OF 50MG BID. CORRECT DOSE TAKEN TODAY. DTR PREFILLS MEDIPLANNER. ALL OTHER MEDICATIONS ARE BEING TAKEN CONSISTENTLY AND PRESCRIBED. NO SIGNS OR SYMPTOMS OF BLEEDING RELATED TO ELIQUIS. VITAL SIGNS ARE STABLE PATIENT SPEAKS IN FULL SENTENCES WITH NO ACUTE DISTRESS, BASELINE LBP. NO ISSUES WITH BOWELS OR BLADDER. HAD SOME LOOSE STOOL/DIARRHEA OVER THE WEEKEND WHICH HAS IMPROVED, LBM YESTERDAY. NO FEVER, ENERGY LEVEL IS LOW BUT IMPROVING. APPETITE ADEQUATE. CALENDER REVIEWED. </paragraph><paragraph></paragraph><paragraph>EDUCATION: REVIEWED BRAT DIET, HYDRATION AND S/S OF HTN INCLUDING GUNN, BLURRED VISION, DIZZINESS</paragraph><paragraph></paragraph><paragraph>INTERVENTIONS NEEDED AT NEXT VISIT: ASSESSMENT TEACHING </paragraph><paragraph> </paragraph><paragraph>COMMUNICATION WITH MD: N.A </paragraph><paragraph></paragraph><paragraph>NEXT MD APPOINTMENT: [facility] F/U 10/29</paragraph><paragraph></paragraph><paragraph>PT AND CAREGIVER INSTRUCTED TO CALL [facility] WITH ANY QUESTIONS OR CONCERNS AND/OR CHANGES IN CONDITION. PATIENT VERBALIZED UNDERSTANDING ...</paragraph><paragraph></paragraph><paragraph>ALISHA PINZON LPN</paragraph> Encounters Start Date/Time End Date/Time Encounter Type Admission Type Attending [facility] Care Facility Care Department Encounter ID Discharge Date Discharge Status Discharge Condition Discharge Reason Percent Goals Met 2024-10-12 00:00:00 2024-12-10 00:00:00 Outpatient NEW ADMISSION MARSHA ROQUE [facility] [id number] 33.33
--- OUTSIDE RECORDS SUMMARY | 2024-12-09 20:00 | XMS_ITS | Clinical Summary ---
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 Active 03-03 [...] capsule,del ayed release 10-06 00:00: 00 Yes [id number] 1 capsule 2 TIMES DAILY 1 capsule 2 TIMES DAILY (route: oral) Med Classific ation: Gastroint estinal Therapy Agents amlodipine 5 mg tablet 10-05 00:00: 00 Yes [id number] 1 tablet DAILY 1 tablet DAILY (route: oral) Med Classific ation: Cardiovas cular Therapy Agents levothyroxi ne 50 mcg tablet 10-05 00:00: 00 Yes [id number] Per instruc tions DAILY Per instructio ns DAILY (route: oral) Med Classific ation: Endocrine trazodone 50 mg tablet 10-05 00:00: 00 Yes [id number] Per instruc tions FOR BEDTIME Per instructio ns FOR BEDTIME (route: oral) Med Classific ation: Central Nervous System Agents vancomycin 125 mg capsule 09-26 00:00: 00 Yes [id number] Per instruc tions 2 (TWO) TIMES A DAY Per instructio ns 2 (TWO) TIMES A DAY (route: oral) Med Classific ation: Anti-Infe ctive Agents duloxetine 20 mg capsule,del ayed release 09-10 00:00: 00 Yes [id number] Per instruc tions 2 TIMES A DAY Per instructio ns 2 TIMES A DAY (route: oral) Med Classific ation: Central Nervous System Agents Eliquis 5 mg tablet 09-10 00:00: 00 Yes [id number] Per instruc tions TWICE A DAY Per instructio ns TWICE A DAY (route: oral) Med Classific ation: Hematolog ical Agents cefpodoxime 200 mg tablet 10-11 00:00: 00 10-16 23:59 :00 No [id number] 1 tablet DAILY 1 tablet DAILY (route: oral) Med Classific ation: Anti-Infe ctive Agents gabapentin 100 mg capsule 10-12 00:00: 00 Yes [id number] 1 capsule 2 TIMES DAILY 1 capsule 2 TIMES DAILY (route: oral) Med Classific ation: Central Nervous System Agents latanoprost 0.005 % eye drops 10-12 00:00: 00 Yes [id number] 1 drops BEDTIME 1 drops BEDTIME (route: ophthalmic (eye)) Med Classific ation: Ophthalmi c Agents metoprolol succinate ER 50 mg tablet,exte nded release 24 hr 10-12 00:00: 00 Yes [id number] 1 tablet 2 TIMES DAILY 1 tablet 2 TIMES DAILY (route: oral) Med Classific ation: Cardiovas cular Therapy Agents morphine 15 mg immediate release tablet 10-12 00:00: 00 Yes [id number] 1 tablet NEEDED 1 tablet NEEDED (route: oral) Med Classific ation: Analgesic , Anti-infl ammatory or Antipyret ic rosuvastati n 5 mg tablet 10-12 00:00: 00 Yes [id number] 1 tablet BEDTIME 1 tablet BEDTIME (route: oral) Med Classific ation: Cardiovas cular Therapy Agents spironolact one 25 mg tablet 10-12 00:00: 00 Yes [id number] 0.5 tablet DAILY 0.5 tablet DAILY (route: oral) Med Classific ation: Cardiovas cular Therapy Agents timolol 0.5 % eye drops 10-12 00:00: 00 Yes [id number] 1 drops DAILY 1 drops DAILY (route: [...] CVA, RISK FACTORS, AND METHODS TO MANAGE TANNERY WORKER EFFECTS OF CVA. [code = SKILLED NURSE TO INSTRUCT PATIENT/CAREGIVER ON WARNING SIGNS OF CVA, RISK FACTORS, AND METHODS TO MANAGE PENITENTIARY EFFECTS OF CVA.] Future Scheduled Test SKILLED [...] MAINTAIN SITUATIONAL AWARENESS AND WILL NOTIFY CLINICAL ENGINEERING OFFICER AND PHYSICIAN/PROVIDER WITH ANY CHANGE IN CONDITION. [code = SKILLED NURSE TO PERFORM ENVIRONMENTAL SAFETY RISK ASSESSMENT AND FALL RISK ASSESSMENT AND PROVIDE INSTRUCTION TO IMPLEMENT ENVIRONMENTAL SAFETY AND FALL PREVENTION STRATEGIES THROUGHOUT THE CERTIFICATION PERIOD. SKILLED NURSE WILL MAINTAIN SITUATIONAL AWARENESS AND WILL NOTIFY CLINICAL ENGINEERING OFFICER AND PHYSICIAN/PROVIDER WITH ANY CHANGE IN CONDITION.] [...] CARE WILL BE ESTABLISHED THAT MEETS PATIENT'S FPC NEEDS AND INCLUDES PATIENT GOAL FOR HOME [...] </paragraph><paragraph>COMMUNICATION WITH MD: N.A </paragraph><paragraph></paragraph><paragraph>NEXT MD APPOINTMENT: [facility] F/U 10/29</paragraph><paragraph></paragraph><paragraph>PT AND CAREGIVER INSTRUCTED TO CALL [facility] WITH ANY QUESTIONS OR CONCERNS AND/OR CHANGES IN CONDITION. PATIENT VERBALIZED UNDERSTANDING ...</paragraph><paragraph></paragraph><paragraph>ALISHA PINZON LPN</paragraph> Encounters Start Date/Time End Date/Time Encounter Type Admission Type Attending [facility] Facility Care Department Encounter ID Discharge Date Discharge Status Discharge Condition Discharge Reason Percent Goals Met 2024-10-12 00:00:00 2024-12-10 00:00:00 Outpatient NEW ADMISSION MARSHA ROQUE [facility] [id number] 33.33
== END 2024-10-28 14:36 | disposition home or self-care (01) ==
LOC: HO.HMCC 13:55
PROVIDERS: PCP Internal Medicine; Visit Provider Physician Assistant
DX: R53.83 Other fatigue (principal); R53.1 Weakness

== ENCOUNTER → 2024-10-28 13:55 | Outpatient (BNVA) | payer MEDICARE, OTHER, SELFPAY | PROVIDERS: PCP Internal Medicine; Visit Provider Physician Assistant | DX: R53.1 Weakness (principal); R53.83 Other fatigue | CPT/HCPCS: 99212 ==

== ENCOUNTER → 2024-10-29 23:59 | Outpatient (BNV) | payer MEDICARE, OTHER, SELFPAY | PROVIDERS: PCP Internal Medicine; Visit Provider Internal Medicine | DX: M48.061 Spinal stenosis, lumbar region without neurogenic claudication (principal); M06.9 Rheumatoid arthritis, unspecified | CPT/HCPCS: G0180 ==

== ENCOUNTER 2024-11-23 07:33 | Outpatient (REF) | payer MEDICARE, OTHER, SELFPAY ==
--- OUTSIDE RECORDS SUMMARY | 2024-11-23 07:36 | XMS_ITS | Clinical Summary ---
Author Organization [facility] Address [address] [place] [address] Care Team Providers Care Product Trainer Name Role Phone Pcp, No Primary Care [...] 50 mg by mouth nightly. Active calcium carbonate-mu min D 600 mg-400 unit tablet Take 1 [...] a day Active acetaminophen (TYLENOL) 500 MG tabletIndicati ons:Infection of prosthetic knee joint, initial encounter Take 2 tablets (1,000 mg total) by mouth 3 times daily (every 8 hours) as needed for mild pain or fever. 60 tablet 03/21/19 21 Active HYDROmorphone (DILAUDID) 2 MG tabletIndicati ons:Infection of prosthetic knee joint, initial encounter Take 1-2 tablets (2-4 mg total) by mouth every 4 (four) hours as needed for moderate pain or severe pain. Max Daily Amount: 24 mg 42 tablet 03/21/19 21 Active senna (SENOKOT) 8.6 MG Tab tabletIndicati ons:Infection of prosthetic knee joint, initial encounter Take 2 tablets by mouth daily as needed for constipation. 60 tablet 03/21/19 21 Active methocarbamol (ROBAXIN) 500 MG tabletIndicati ons:Infection of prosthetic knee joint, initial encounter Take 1 tablet (500 mg total) by mouth 3 (three) times a day as needed for muscle spasms. 42 tablet 03/21/19 21 Active cefpodoxime (VANTIN) 200 MG tabletIndicati ons:C. difficile colitis,Infect ion of prosthetic knee joint, initial encounter Take 1 tablet (200 mg total) by mouth daily. 90 tablet 2 03/29/19 25 Active vancomycin (VANCOCIN) 125 MG capsuleIndicat ions:C. difficile colitis Take 1 capsule (125 mg total) by mouth 2 (two) times a day. 60 capsule 11 11/23/19 25 026 Active vancomycin (VANCOCIN) 125 MG capsuleIndicat ions:C. difficile colitis Take 1 capsule (125 mg total) by mouth 2 (two) times a day. 60 capsule 11 12/10/19 24 025 Discontinued Active Problems Problem Noted Date Diagnosed Date Benign essential HTN 03/17/2020 HLD (hyperlipidemia) 03/17/2020 Glaucoma 03/17/2020 Type 2 diabetes mellitus wit hout complication, without long-term current use of insulin 03/17/2020 GERD (gastroesophageal reflux disease) Acquired hypothyroidism 03/17/2020 Depression 03/17/2020 Restless leg syndrome 03/17/2020 Infection of prosthetic knee joint 03/16/2020 Encounters Date Type Department Care Team Description 11/20/2024 Refill [facility] Department of Infectious Disease [place] [address] [place] [address] Emir Cowan MD C. difficile colitis from Last 3 Months Social History Tobacco [...] 03/19/2021 03/19/2020, 03/18/2020, 03/17/2020, Additional history exists Influenza Vaccine 10/01/2024 11/20/2023, 12/12/2012 COVID-19 Vaccine ( season) 2024 11/20/2023 Advance Care Planning Completed 04/14/2024 Hepatitis B Vaccines Aged Out No long er eligible based on patient's age to complete this topic Medical Devices Implanted Type Area Sports Apparel Internship Device Identifier Shelf Expiration Date Model / Serial / Lot [id number] Insert Articular 3-4 C-H Std [id number] Knee Net Mold Uhmwpe - [id number] Implanted:Qty: 1 on 03/17/2020 by Tray Duncan MD at [facility] Joint Prosthesis Right: Knee [employer] [id number] 04/02/2027 [id number] / / [id number] Oral Implanted:Qty: 3 Oral Tooth Procedures Procedure [...] Maintenance Insurance MEDICARE PART A & B [facility] MEDIC[facility] PART A & B Member Subscriber Plan / Payer (Ef fective 2010-Present) Name:Lynda Leslie Member ID:[id number] Relation to Subscriber:Self Name:Lynda Leslie Subscriber ID:[id number] Payer ID:[id number] Group ID:Not on file Type:Not on file Address: [place] [address] [place] [address] COMMERCIAL Advance Directives Documents on File Type Date Recorded Patient Charge Gang Weigher Expl anation Advance Directive-Scan 04/14/2024 RX AP PROVAL TO ID Advance Directive-Scan 07/01/2022 APPRO VAHE OF MEDICATION * Full Code (Latest Code Status on File) Date Activated Date Inactivated Comments 03/16/2020 7:24 PM Care Teams Product Trainer Relationship Specialty Start Date End Date Pcp, No PCP - General General Medicine 10/24/20
--- OUTSIDE RECORDS SUMMARY | 2024-11-23 07:36 | XMS_ITS | Patient Health Record ---
Author Organization [facility] Address [address] [facility] [place] [address] Care Team Providers Care Machine Former Name Role Phone Jia Parmar MD Primary Care Provider Melina Dunne Unavailable [phone] Allergies Allergen (clinical drug ingredient) Drug/Non Drug [...] Allergy Active Latex Latex Unknown Allergy Active Reason For Referral No Information Medications Medication [...] Polyneuropathy due to type 2 diabetes mellitus (797037865) Type 2 diabetes mellitus with diabetic polyneuropathy (E11.42) Active confirmed Vital Signs Blood pressure diastolic 65 mm Hg 09/22/2024 Height 5 ft 0 in in 09/22/2024 Blood pressure systolic 126 mm Hg 09/22/2024 Weight 111 lbs 09/22/2024 BMI 21.68 kg/m2 09/22/2024 Procedures Procedure Date Ordered Date Performed Result Body Sit e 64617-GAKZYYQ NAIL, 6 OR MORE 02/18/2024 N/A 43972-QBHU SKIN LESIONS, OVER 4 02/18/2024 N/A 07195-BLNHCMI NAIL, 6 OR MORE 06/24/2024 N/A 55013-FZEB SKIN LESIONS, OVER 4 06/24/2024 N/A 52969-KBQZQXC NAIL, 6 OR MORE 09/22/2024 N/A 07126-YZFZ SKIN LESIONS, OVER 4 09/22/2024 N/A Encounters Encounter Location Date Provider Diagnosis [address] [address] 02/18/2024 Melina Booth Type 2 diabetes mellitus with diabetic polyneuropathy E11.42 ; Tinea unguium B35.1 and Xerosis of skin L85.[address] [address] 06/24/2024 Melina Booth Type 2 diabetes mellitus with diabetic polyneuropathy E11.42 ; Tinea unguium B35.1 ; Other hammer toe(s) (acquired), right foot M20.41 and Other hammer toe(s) (acquired), left foot M20.[address] [address] 09/22/2024 Melina Booth Type 2 diabetes mellitus with diabetic polyneuropathy E11.42 and Tinea unguium B35.[address] [address] 06/24/2024 Melina Booth Assessments Encounter Date Diagnosis [...] E11.42) 09/22/2024 Tinea unguium (ICD-10 - B35.1) 02/18/2024 Xerosis of skin (ICD-10 - L85.3) 06/24/2024 Other hammer toe(s) (acquired), right foot (ICD-10 - M20.41) Patient Educated with: DIABETIC FOOT CARE INSTRUCTIONS. pdf (DIABETIC FOOT CARE INSTRUCTIONS. pdf) 06/24/2024 Other hammer toe(s) (acquired), left foot (ICD-10 - M20.42) 09/22/2024 Other Patient Educated with: DIABETIC FOOT [...] X ray : Foot, right 3V 08/04/2017 39480-NJJJMHY NAIL, 6 OR MORE 10/27/2017 73367-EGFXZJR NAIL, 6 OR MORE 08/04/2017 23308-UDTGPMC NAIL, 6 OR MORE 05/12/2017 29071-CSDRIXK NAIL, 6 OR MORE 06/24/2024 00100-KNUPBNI NAIL, 6 OR MORE 09/22/2024 74426-QYWLTSV NAIL, 6 OR MORE 02/18/2024 37343-BQAFTXI NAIL, 6 OR MORE 2018 79510-USLWJIU NAIL, 6 OR MORE 03/10/2017 66095-WMGIZMO NAIL, 6 OR MORE 01/06/2017 86981-VXNBPZN NAIL, 6 OR MORE 10/23/2016 14677-GNUJWPA NAIL, 6 OR MORE 07/25/2016 72071-MMWGHJU NAIL, 6 OR MORE 05/10/2016 37173-TXPAPSU NAIL, 6 OR MORE 02/14/2016 30963-JFRNNBV NAIL, 6 OR MORE 11/20/2015 37149-EJTLAFX NAIL, 6 OR MORE 07/05/2015 31821-Cpsxyyfn Plate 07/27/2015 35166-Qwlhyorv Plate 05/29/2016 97475-Llrfhwkb Plate 06/10/2016 94132- Debride <25 sq cm 06/10/2016 29146- Debride <25 sq cm 09/25/2016 82109- Debride <25 sq cm 10/23/2016 86075- Debride <25 sq cm 08/14/2015 79910-ACIP SKIN LESIONS, OVER 4 07/05/19 16 04231-FSUH SKIN LESIONS, OVER 4 11/20/19 16 89358-PUNM SKIN LESIONS, OVER 4 02/14/20 16 50019-YGYL SKIN LESIONS, OVER 4 05/11/19 17 30113-OAGN SKIN LESIONS, OVER 4 10/24/19 17 63693-FSEJ SKIN LESIONS, OVER 4 01/07/20 17 35160-WAIN SKIN LESIONS, OVER 4 05/13/19 18 03705-DCIW SKIN LESIONS, OVER 4 03/10/19 18 84725-FWWN SKIN LESIONS, OVER 4 02/13/20 21 60448-XMIZ SKIN LESIONS, OVER 4 05/15/19 22 12450-CLKX SKIN LESIONS, OVER 4 02/18/20 24 94199-VBXD SKIN LESIONS, OVER 4 09/23/19 25 45673-KXUS SKIN LESIONS, OVER 4 06/25/19 25 45202-VXFK SKIN LESIONS, OVER 4 08/05/19 18 84154-NLNK SKIN LESIONS, OVER 4 01/13/20 18 83355-VSVU SKIN LESIONS, OVER 4 10/28/19 18 29472-NZPF SKIN LESIONS, OVER 4 04/13/19 19 65173-MRAZ SKIN LESIONS, OVER 4 07/14/19 12276-STLU SKIN LESIONS, OVER 4 10/13/19 19 63364-DHIE SKIN LESIONS, OVER 4 01/12/20 19 61855-XEWQ SKIN LESIONS, OVER 4 04/12/19 35776-VMXZ SKIN LESIONS, OVER 4 07/14/19 38707-BAJB SKIN LESIONS, OVER 4 10/18/19 70912-FKPO SKIN LESIONS, OVER 4 01/17/20 03418-ITLI SKIN LESIONS, OVER 4 04/24/19 05728-DKSI SKIN LESIONS, OVER 4 07/25/19 03247-JIHK SKIN LESIONS, OVER 4 11/21/19 46265-FZRP SKIN LESIONS, 2 TO 4 07/26/19 17 14726, L0650-JNUAV/INJECT, JOINT/BURSA 0 04/13/2018 11915, J0702- Neuroma/Injection 11/20/19 16 43631-Usyrptjzq, Toes 05/10/2016 64067-Beeiaaird, Toes 05/15/2016 50860-Mpafsiyvj, Toes 03/12/2023 Next Appt Details Provider Name:Melina Muñoz trenton, 12/23/2024 11:15:00 AM, [address] [facility], [place], [address], Insurance Providers Payer Name Payer Address Payer Phone Subscriber Number Group Number Insured Name Patient Relationship to Insured Coverage Start Date Coverage End Date Medicare National Govt Sv[employer] [address] [place] [address] [id number] Lynda Leslie Self - patient is the insured [facility] ([facility]) [address] [place], [place] [address] [id number] Shayan Leslie Spouse - patient is [...] checked out- couldn't walk 12/03/22 Hospital in [place] /[facility] 5 days after sx ba ck blood clot / c.diff 03/2020 [facility]- pancolitis 02/13/19 [facility] X 3 Days, Pt sstates she fell, dx: c oncusion 05/18/2017
--- OUTSIDE RECORDS SUMMARY | 2024-11-23 07:36 | XMS_ITS | Clinical Summary ---
Author Organization [facility] Address [address] [place] [address] Care Team Providers Care Embosser Apprentice Name Role Phone Jia Parmar MD Primary Care Provider [phone] Social History Tobacco Use Types Packs/Day Years [...] age to complete this topic Care Teams Embosser Apprentice Relationship Specialty Start Date End Date Jia Parmar MD [address] [facility] [place] [phone] PCP - General Top Printing Press Operator 12/09/18
--- OUTSIDE RECORDS SUMMARY | 2024-11-23 07:36 | XMS_ITS | Encounter Summary ---
Author Organization [facility] Address [address] [place] [address] Care Team Providers Care Tmh Teacher Name Role Phone Pcp, No Primary Care Provider Unavailabl e Reason for Visit * Reason Comments Medication Refill Encounter Details Date Type Department Care Team (Late st Contact Info) Description 11/20/2024 Refill [facility] Department of Infectious Disease [place] [address] [facility] [address] [place] [address] Emir Cowan MD [address] [facility] [address] [place], [place] [id number] C. difficile colitis Social History Tobacco Use Types Packs/Day Years Used Date Smoking Tobacco: Never Smokeless Tobacco: Never Comments Unknown Sex and Gender Information Value Date Recorded Sex Assigned at Not on file Legal Sex Female 6:34 PM EST Gender Identity Not on file Sexual Orientation Not on file documented as of this encounter Plan of Treatment Not on file documented as of this encounter Visit Diagnoses Diagnosis C. difficile colitis documented in this encounter Care Teams Tmh Teacher Relationship Specialty Start Date End Date Pcp, No PCP - General General Medicine 10/24/20 documented as of this encounter
--- OUTSIDE RECORDS SUMMARY | 2024-11-23 07:36 | XMS_ITS | Clinical Summary ---
Author Organization [facility] Address [address] [place] [address] Phone Care Team Providers Care Satellite Television Installer Name Role Phone Jia Parmar MD Primary Care Provider [phone] Allergies Active Allergy Reactions Criticality Noted Date [...] EDT - 10/10/2024 12:32 PM EDT Emergency [facility] Emergency [address] [place] [address] Fede Ontiveros MD Kokkinos, Erika, MD Landry, [...] 02/03/2022 Social Influencers of Health Screening 02/03/2022 Diabetes: Annual Urine Albumin-Creatinine Ratio (uACR) 02/21/2024 Diabetes: Blood Sugar Control Test (HGBA1C) 02/21/2024 Depression Screening 03/03/2024 COVID-19 Vaccine ( season) 2024 11/29/2021, 06/10/2021, 03/26/2021, Additional history exists Influenza Vaccine (#1) 2024 , 11/29/2022, 11/01/2022, [...] reflex microscopic (10/09/2024 2:18 PM EDT) Specific [place] Urine 1.013 1.003 - 1.030 LAB URINALYSIS - AUTOMATED METHOD 10/09/2024 2:53 PM EDT [facility] pH, Urine 6.0 5.0 - 8.0 pH LAB URINALYSIS - AUTOMATED METHOD 10/09/2024 2:53 PM EDT [facility] Leukocytes, Urine Negative Negative LAB URINALYSIS - AUTOMATED METHOD 10/09/2024 2:53 PM EDT [facility] Nitrite, Urine Negative Negative LAB URINALYSIS - AUTOMATED METHOD 10/09/2024 2:53 PM EDT [facility] Protein, Urine Negative <=Trace mg/dL LAB URINALYSIS - AUTOMATED METHOD 10/09/2024 2:53 PM EDT [facility] Glucose, Urine Negative Negative mg/dL LAB URINALYSIS - AUTOMATED METHOD 10/09/2024 2:53 PM EDT [facility] Ketones, Urine Negative Negative mg/dL LAB URINALYSIS - AUTOMATED METHOD 10/09/2024 2:53 PM EDT [facility] Urobilinogen, Urine 0.2 0.2 - 1.0 mg/dL LAB URINALYSIS - AUTOMATED METHOD 10/09/2024 2:53 PM EDT [facility] Bilirubin, Urine Negative Negative LAB URINALYSIS - AUTOMATED METHOD 10/09/2024 2:53 PM EDT [facility] Blood, Urine Negative Negative LAB URINALYSIS - AUTOMATED METHOD 10/09/2024 2:53 PM T [facility] Urine Urine specimen obtained by clean catch procedure / Unknown Non-blood Collection / Unknown 10/09/2024 2:18 PM EDT 10/09/2024 2:26 PM EDT us Fede Ontiveros MD LAB URINE ORDERABLES Final R esult [facility] [address] [place] [address], * (ABNORMAL) Drug abuse screen 8a panel, urine (10/09/2024 2:18 PM EDT) Amphetamine Screen, Ur Negative Negative LAB CHEMISTRY METHOD 08/09/202 5 3:33 PM EDT [facility] Comment:Certain OTC medicati ons containing ephedrine, phenylephrine, pseudoephedrine and phenylpropanolamine can cause false positive results. Barbiturate Screen, Ur Negative Negative LAB CHEMISTRY METHOD 5 3:33 PM EDT [facility] Benzodiazepine Screen, Ur Negative Negative LAB CHEMISTRY METHOD 5 3:33 PM EDT [facility] Cocaine Screen, Ur Negative Negative LAB CHEMISTRY METHOD 5 3:33 PM EDT [facility] Opiate Screen, Ur Positive(A ) Negative [facility] Cannabinoid (THC) Screen, Ur Negative Negative LAB CHEMISTRY METHOD 5 3:33 PM T [facility] Comment:Specimens from patie nts taking pantoprazole sodium (Protonix) have been shown to produce false positive results. Oxycodone Screen, Ur Negative Negative LAB CHEMISTRY METHOD 5 3:33 PM EDT [facility] Fentanyl, Ur Negative Negative LAB CHEMISTRY METHOD 5 3:[address] [facility] Urine Urine specimen obtained by clean catch procedure / Unknown Non-blood Collection / Unknown 10/09/2024 2:18 PM EDT 10/09/2024 2:27 PM EDT Narrative [facility] - 10/09/2024 3:33 PM EDT Assay [...] MD LAB URINE ORDERABLES Final R esult [facility] [address] [place] [address], [place] [phone] * Troponin I high sensitivity (10/09/2024 12:54 PM EDT) Only the most recent of2 resultswithin the time period is included. High Sensitivity Troponin I 9 <=54 ng/L LAB CHEMISTRY METHOD 10/09/2024 1:36 PM EDT [facility] Blood Venous blood specimen / Unknown Venipuncture / Unknown 10/09/2024 12:54 PM EDT 10/09/2024 1:00 PM EDT Narrative [facility] - 10/09/2024 1:36 PM EDT High levels of biotin in samples may falsely decrease hsTroponin values. Use caution when interpreting hsTroponin results in patients taking biotin who exhibit renal impairment (eGFR <60) or in patients taking more than 20 mg/day of biotin. us Fede Ontiveros MD LAB BLOOD ORDERABLES Final R esult Performing Organization Address [facility] Co de Phone Number [facility] [address] [place] [address], [place] [phone] * CT Head wo Contrast (10/09/2024 12:05 [...] Signed Date: 10/09/2024 12:20 ET Workstation ID: [id number] Transcribed By: Self Edit Transcribed Date: 10/09/2024 [...] Signed Date: 10/09/2024 12:20 ET Workstation ID: [id number] Transcribed By: Self Edit Transcribed Date: 10/09/2024 12:17 ET us Fede Ontiveros MD IMG CT PROCEDURES Final Resu lt * (ABNORMAL) CBC auto differential (10/09/2024 11:40 AM EDT) WBC 11.0(H) 4.8 - 10.8 K/mcL LAB HEMETOLOGY METHOD 10/09/2024 11:[address] [facility] RBC 3.70(L) 3.80 - 4.80 M/mcL LAB HEMETOLOGY METHOD 10/09/2024 11:[address] [facility] Hemoglobin 11.0(L) 11.5 - 16.0 g/dL LAB HEMETOLOGY METHOD 10/09/2024 11:[address] [facility] Hematocrit 33.3(L) 35.0 - 47.0 % LAB HEMETOLOGY METHOD 10/09/2024 11:[address] [facility] MCV 90.0 79.0 - 98.0 FL LAB HEMETOLOGY METHOD 10/09/2024 11:[address] [facility] MCH 29.7 27.0 - 32.0 pcg LAB HEMETOLOGY METHOD 10/09/2024 11:[address] [facility] MCHC 33.0 32.0 - 37.0 g/dL LAB HEMETOLOGY METHOD 10/09/2024 11:[address] [facility] RDW 12.5 11.0 - 15.0 % LAB HEMETOLOGY METHOD 10/09/2024 11:[address] [facility] Platelets 229 130 - 400 K/mcL LAB HEMETOLOGY METHOD 10/09/2024 11:[address] [facility] MPV 10.8 7.0 - 11.0 FL LAB HEMETOLOGY METHOD 10/09/2024 11:[address] [facility] NRBC 0.0 <1.0 % LAB HEMETOLOGY METHOD 10/09/2024 11:[address] [facility] NRBC Absolute 0.00 <0.10 K/mcL LAB HEMETOLOGY METHOD 10/09/2024 11:[address] [facility] Neutrophils Relative 75.1 % LAB HEMETOLOGY METHOD 10/09/2024 11:[address] [facility] Lymphocytes Relative 17.1 % LAB HEMETOLOGY METHOD 10/09/2024 11:[address] [facility] Monocytes Relative 5.4 % LAB HEMETOLOGY METHOD 10/09/2024 11:[address] [facility] Eosinophils Relative 1.4 % LAB HEMETOLOGY METHOD 10/09/2024 11:[address] [facility] Basophils Relative 0.5 % LAB HEMETOLOGY METHOD 10/09/2024 11:[address] [facility] Immature Granulocytes Relative 0.5 % LAB HEMETOLOGY METHOD 10/09/2024 11:[address] [facility] Neutrophils Absolute 8.23(H) 1.50 - 7.00 K/mcL LAB HEMETOLOGY METHOD 10/09/2024 11:[address] [facility] Lymphocytes Absolute 1.87 1.00 - 5.00 K/mcL LAB HEMETOLOGY METHOD 10/09/2024 11:[address] [facility] Monocytes Absolute 0.59 0.20 - 1.00 K/mcL LAB HEMETOLOGY METHOD 10/09/2024 11:53 AM EDT [facility] Eosinophils Absolute 0.15 0.00 - 0.50 K/mcL LAB HEMETOLOGY METHOD 10/09/2024 11:53 AM EDT [facility] Basophils Absolute 0.06 0.00 - 0.20 K/[facility] LAB HEMETOLOGY METHOD 10/09/2024 11:53 AM EDT [facility] Immature Granulocytes Absolute 0.05(H) 0.00 - 0.03 K/[facility] LAB HEMETOLOGY METHOD 10/09/2024 11:53 AM EDT [facility] Blood Venous blood specimen / Unknown Venipuncture / Unknown 10/09/2024 11:40 AM EDT 10/09/2024 11:46 AM EDT Fede Ontiveros MD LAB BLOOD ORDERABLES Final R esult Performing Organization Address City/[facility]/ZIP Co de Phone Number [facility] [address] [place] [address], * (ABNORMAL) Thyroid Stimulating Hormone (TSH) (10/09/2024 11:40 AM EDT) TSH 0.30(L) 0.40 - 4.00 mcIU/mL LAB CHEMISTRY METHOD 10/09/2024 12:47 PM EDT [facility] Blood Venous blood specimen / Unknown Venipuncture / Unknown 10/09/2024 11:40 AM EDT 10/09/2024 11:47 AM EDT Fede Ontiveros MD LAB BLOOD ORDERABLES Final R esult Performing Organization Address City/[facility]/ZIP Co de Phone Number [facility] [address] [place] [address], [place] [phone] * Phosphorus (10/09/2024 11:40 AM EDT) Phosphorus 4.2 2.5 - 4.5 mg/dL LAB CHEMISTRY METHOD 10/09/2024 12:16 PM EDT [facility] Blood Venous blood specimen / Unknown Venipuncture / Unknown 10/09/2024 11:40 AM EDT 10/09/2024 11:47 AM EDT us Fede Ontiveros MD LAB BLOOD ORDERABLES Final R esult [facility] [address] [place] [address], [place] [phone] * Magnesium (10/09/2024 11:40 AM EDT) [facility] Magnesium 2.0 1.9 - 2.6 mg/dL LAB CHEMISTRY METHOD 10/09/2024 12:16 PM EDT [facility] Blood Venous blood specimen / Unknown Venipuncture / Unknown 10/09/2024 11:40 AM EDT 10/09/2024 11:47 AM EDT us Fede Ontiveros MD LAB BLOOD ORDERABLES Final R esult [facility] [address] [place] [address], [place] [phone] * Creatine kinase (10/09/2024 11:40 AM EDT) Total CK 103 22 - 269 unit/L LAB CHEMISTRY METHOD 10/09/2024 12:16 PM EDT [facility] Blood Venous blood specimen / Unknown Venipuncture / Unknown 10/09/2024 11:40 AM EDT 10/09/2024 11:47 AM EDT us Fede Ontiveros MD LAB BLOOD ORDERABLES Final R esult [facility] [address] [place] [address], * (ABNORMAL) Comprehensive Metabolic Panel (CMP) (10/09/2024 11:40 AM EDT) Sodium 139 133 - 145 mmol/L LAB CHE[facility]STRY [facility] Potassium 4.4 3.5 - 5.5 mmol/L LAB CHEMISTRY METHOD 10/09/2024 12:[address] [facility] Chloride 109 96 - 110 mmol/L LAB CHEMISTRY METHOD 10/09/2024 12:[address] [facility] CO2 26 21 - 32 mmol/L LAB CHEMISTRY METHOD 10/09/2024 12:[address] [facility] Anion Gap 4 3 - 11 LAB CHEMISTRY METHOD 10/09/2024 12:[address] [facility] Glucose 129(H) 70 - 100 mg/dL LAB CHEMISTRY METHOD 10/09/2024 12:[address] [facility] BUN 31(H) 5 - 25 mg/dL LAB CHEMISTRY METHOD 10/09/2024 12:[address] [facility] Creatinine 1.22(H) 0.50 - 1.10 mg/dL LAB CHEMISTRY METHOD 10/09/2024 12:[address] [facility] eGFR 45(L) >=60 mL/min/1. 73m2 LAB CHEMISTRY METHOD 10/09/2024 12:[address] [facility] Comment:Calculation based on the Chronic Kidney Disease Epidemiology Collaboration (CKD-EPI) equation refit without adjustment for race. BUN/Creatinine Ratio 25.4 LAB CHEMISTRY METHOD 10/09/2024 12:[address] [facility] Calcium 9.2 8.5 - 10.5 mg/dL LAB CHEMISTRY METHOD 10/09/2024 12:16 PM EDT [facility] AST (SGOT) 31 10 - 42 unit/L LAB CHEMISTRY METHOD 10/09/2024 12:16 PM EDT [facility] ALT (SGPT) 41 10 - 60 unit/L LAB CHEMISTRY METHOD 10/09/2024 12:16 PM EDT [facility] Alkaline Phosphatase 65 42 - 121 unit/L LAB CHEMISTRY METHOD 10/09/2024 12:16 PM EDT [facility] Total Protein 6.2 6.0 - 8.0 g/dL LAB CHEMISTRY METHOD 10/09/2024 12:16 PM EDT [facility] Albumin 3.6 3.2 - 5.0 g/dL LAB CHEMISTRY METHOD 10/09/2024 12:16 PM EDT [facility] Total Bilirubin 0.5 0.0 - 1.4 mg/dL LAB CHEMISTRY METHOD 10/09/2024 12:16 PM EDT [facility] Blood Venous blood specimen / Unknown Venipuncture / Unknown 10/09/2024 11:40 AM EDT 10/09/2024 11:47 AM EDT Fede Ontiveros MD LAB BLOOD ORDERABLES Final R esult [facility] [address] [place] [address], * 12-Lead ECG (10/09/2024 11:31 AM EDT) Ventricular Rate ECG 68 BPM GEMUSE Atrial Rate 68 BPM GEMUSE P-R Interval 168 ms GEMUSE QRS Duration 84 ms GEMUSE Q-T Interval 438 ms GEMUSE QTc 465 ms GEMUSE P Wave [place] -11 degrees GEMUSE R [place] -13 degrees GEMUSE T [place] 19 degrees GEMUSE ECG Interpretation Normal sinus [...] AM EDT Narrative 11/19/2022 11:36 AM EDT [facility] Diagnostic Imaging Department [address] [place], [place] [id number] Patient: VILLAHEBER /Age/Sex: 1945 - 77 - F Unit#: [id number] [facility] Ordering Physician: JOSE SAMUELS MD Leticia Dexa [...] probability of hip fracture of 4.7%. Code 81169 Dictating Physician: CLIVE BREWER MD Electronically Signed by: CLIVE BREWER MD Dic Date/Time: 11/19/22 1133 Sign date/Time: 11/19/22 1136 Procedure Note Clive Brewer MD - 04/08/2023 [facility] Diagnostic Imaging Department [address] [place] [address] Patient: HEBER LESLIE Apoorva /Age/Sex: 1945 - 77 - F Unit#: [id number] Location/Status: [facility] CLI Mnemonic[facility] Ordering Physician: JOSE SAMUELS MD Leticia Dexa [...] density of the femurs bilaterally is 0.799 gm/[id number] is 79% of that of young normals [...] probability of hip fracture of 4.7%. Code 33342 Dictating Physician: CLIVE BREWER MD Electronically Signed by: CLIVE BREWER MD Dic Date/Time: 11/19/22 1133 Sign date/Time: 11/19/22 1136 Jose Samuels MD IM BI PROCEDURES Final Result from Last 3 Months or Most Recently Relevant to Health Maintenance Insurance MEDICARE MEDICAID - [facility] Advance Directives Documents on File Type Date Recorded Patient Director Of Front Office Expl anation Health Care Decision (hx) 03/16/2014 [...] (hx) 03/16/2014 AD CALDERON DIRECTIVE Care Teams Satellite Television Installer Relationship Specialty Start Date End Date Jia Parmar MD [address] [place] [address] PCP - General Internal Medicine 02/20/24
--- OUTSIDE RECORDS SUMMARY | 2024-11-23 07:36 | XMS_ITS | Clinical Summary ---
Author Organization [facility] Address [address] [place] [id number] Phone Care Team Providers Care Waiter/Waitress Name Role Phone Jia Parmar MD Primary Care Provider [phone] Allergies Active Allergy Reactions Criticality Noted Date [...] VACCINE (1 - 1-dose 75+ series) 01/13/2020 Adult Td,Tdap Booster 11/21/2023 11/20/2013 INFLUENZA VACCINE (#1) 2024 , 11/10/2017, 11/13/2016, Additional history exists COVID-19 VACCINE (2024- season) 2024 05/03/2020, 04/12/2020 PNEUMOCOCCAL VACCINES (50+ years) Completed 04/05/2014, 12/25/2012, [...] this topic Medical Devices Implanted Type Area Snipper Device Identifier Shelf Expiration Date Model / Serial / Lot Iol Softport Ao [id number] 31.0d-08/14/2016 Implanted:2016 (Quantity not on file) MEDLINE 06/30/2018 Description:OS Iol Softport Ao [id number] 30.0d-09/16/2016 Implanted:2016 (Quantity not on file) MEDLINE 07/31/2020 Description:OD Insurance MEDICARE PART A & B [employer] TOTAL CHOICE INDEMNITY MEDICARE PART A & B [employer] TOTAL CHOICE INDEMNITY Care Teams Waiter/Waitress Relationship Specialty Start Date End Date Jia Parmar MD [address] [place] [id number] PCP - General Internal Medicine 10/24/16 Additional Source Comments The information contained in this document represents components of the legal health record. It is not the complete legal health record.[facility]
[2024-11-23 10:15] LABS: Hematocrit 36.3 % (37.0-47.0); Hemoglobin 11.9 g/dl (12.0-16.0); Mean Corpuscular Volume 90.8 fL (80.0-98.0); Platelet Count 202 X10*3/uL (160-400); Red Blood Count 4.00 X10*6/uL (4.20-5.50)
[2024-11-23 12:46] LABS: Alanine Aminotransferase 49 U/L (0-31); Albumin Level 4.2 g/dL (3.5-5.0); Alkaline Phosphatase 66 U/L (39-117); Anion Gap 14 (12-20); Aspartate Amino Transferase 38 U/L (5-31); Blood Urea Nitrogen 24 mg/dL (9-16); Calcium 9.1 mg/dL (8.4-10.2); Carbon Dioxide 18 mmol/L (22-29); Chloride 113 mmol/L (96-108); Estimated Glomerular Filt Rate 41; Potassium 4.7 mmol/L (3.3-5.1); Sodium 140 mmol/L (135-145); Total Protein 6.7 g/dL (6.5-8.0)
[2024-11-23 13:19] LABS: Free T4 (Free Thyroxine) 1.18 ng/dL (0.71-1.85)
--- OUTSIDE RECORDS SUMMARY | 2024-12-09 20:00 | XMS_ITS | Clinical Summary ---
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 Name Role Phone JASS MONTANEZ, ANN Unavailable Unavailable JUDE CORBETT, AMRSHA Unavailable Unavailable Payers Payer Name Policy Type Policy Number Effective Date Expira tion Date MEDICARE - [place] PDGM [id number] Problems Condition Name Condition Details Condition Category Status Onset Date Resolution Date Last Treatment Date Treating Clinician Comments SPINAL STENOSIS, LUMBAR REGION WITHOUT NEUROGENIC SINGH Active 03-03 00:00: 00 RHEUMATOID ARTHRITIS, UNSPECIFIED Active 03-03 00:00: 00 HYPERTENSIVE CHRONIC KIDNEY DISEASE W STG 1-4/UNSP CHR KDNY Active 03-03 00:00: 00 TYPE 2 DIABETES MELLITUS W DIABETIC CHRONIC KIDNEY DISEASE Active 03-03 00:00: 00 CHRONIC KIDNEY DISEASE, STAGE 3 UNSPECIFIED Active 03-03 00:00: 00 TYPE 2 DIABETES MELLITUS WITH HYPERGLYCEMI A Active 03-03 00:00: 00 HEREDITARY DEFICIENCY OF OTHER CLOTTING FACTORS Active 03-03 00:00: 00 UNSPECIFIED ASTHMA, UNCOMPLICATE D Active 03-03 00:00: 00 OTHER SEQUELAE OF CEREBRAL INFARCTION Active 03-03 00:00: 00 FATTY (CHANGE OF) LIVER, NOT ELSEWHERE CLASSIFIED Active 03-03 00:00: 00 Other intvrt disc degen, 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 Active 03-03 00:00: 00 MICROSCOPIC COLITIS, UNSPECIFIED Active 03-03 00:00: 00 MAJOR DEPRESSIVE DISORDER, SINGLE EPISODE, UNSPECIFIED Active 03-03 00:00: 00 CELIAC DISEASE Active 03-03 00:00: 00 AGE-RELATED OSTEOPOROSIS W/O CURRENT PATHOLOGICAL FRACTURE Active 03-03 00:00: 00 HYPERLIPIDEM IA, UNSPECIFIED Active 03-03 00:00: 00 NONTOXIC GOITER, UNSPECIFIED Active 03-03 00:00: 00 GASTRO-ESOPH AGEAL REFLUX DISEASE WITHOUT ESOPHAGITIS Active 03-03 00:00: 00 PRESENCE OF UNSPECIFIED ARTIFICIAL KNEE JOINT Active 03-03 00:00: 00 ACQUIRED ABSENCE OF BOTH CERVIX AND UTERUS Active 03-03 00:00: 00 PERSONAL HISTORY OF OTHER VENOUS THROMBOSIS AND EMBOLISM Active 03-03 00:00: 00 PERSONAL HISTORY OF PULMONARY EMBOLISM Active 03-03 00:00: 00 NURSING HOME (CURRENT) USE OF ANTICOAGULAN TS Active 03-03 00:00: 00 Allergies, Adverse Reactions, Alerts Allergy Name Allergy Type Status Severity Reaction(s) Onset Date Inactive Date Treating Clinician Comments INDOMETHACIN Propensity to adverse reactions Active 10-12 18:59: 58 LACTOSE MONOHYDRATE Propensity to adverse reactions Active 10-12 19:00: 47 CEPHALASPORI NS Propensity to adverse reactions Active 10-12 19:00: 57 GLUTEN Propensity to adverse reactions Active 10-12 19:01: 06 LATEX Propensity to adverse reactions Active 10-12 19:01: 16 NITROFURAN Propensity to adverse reactions Active 10-12 19:01: 27 Medications Ordered Medication Name Filled Medication Name Start Date Stop Date Current Medication? Ordering Clinician Indication Dosage Frequency Signature (SIG) Comments Components omeprazole 40 mg capsule,del ayed release 10-06 00:00: 00 Yes [id number] 1 capsule 2 TIMES DAILY 1 capsule 2 TIMES DAILY (route: oral) Med Classific ation: Gastroint estinal Therapy Agents amlodipine 5 mg tablet 10-05 00:00: 00 10-15 23:59 :00 No [id number] 1 tablet DAILY 1 tablet DAILY (route: oral) Med Classific ation: Cardiovas cular Therapy Agents levothyroxi ne 50 mcg tablet 10-05 00:00: 00 Yes [id number] Per instruc tions DAILY Per instructio ns DAILY (route: oral) Med Classific ation: Endocrine trazodone 50 mg tablet 10-05 00:00: 00 Yes [id number] Per instruc tions FOR BEDTIME Per instructio ns FOR BEDTIME (route: oral) Med Classific ation: Central Nervous System Agents vancomycin 125 mg capsule 09-26 00:00: 00 Yes [id number] Per instruc tions 2 (TWO) TIMES A DAY Per instructio ns 2 (TWO) TIMES A DAY (route: oral) Med Classific ation: Anti-Infe ctive Agents duloxetine 20 mg capsule,del ayed release 09-10 00:00: 00 Yes [id number] Per instruc tions 2 TIMES A DAY Per instructio ns 2 TIMES A DAY (route: oral) Med Classific ation: Central Nervous System Agents Eliquis 5 mg tablet 09-10 00:00: 00 Yes [id number] Per instruc tions TWICE A DAY Per instructio ns TWICE A DAY (route: oral) Med Classific ation: Hematolog ical Agents cefpodoxime 200 mg tablet 10-11 00:00: 00 10-16 23:59 :00 No [id number] 1 tablet DAILY 1 tablet DAILY (route: oral) Med Classific ation: Anti-Infe ctive Agents gabapentin 100 mg capsule 10-12 00:00: 00 Yes [id number] 1 capsule 2 TIMES DAILY 1 capsule 2 TIMES DAILY (route: oral) Med Classific ation: Central Nervous System Agents latanoprost 0.005 % eye drops 10-12 00:00: 00 Yes [id number] 1 drops BEDTIME 1 drops BEDTIME (route: ophthalmic (eye)) Med Classific ation: Ophthalmi c Agents metoprolol succinate ER 50 mg tablet,exte nded release 24 hr 10-12 00:00: 00 Yes [id number] 1 tablet 2 TIMES DAILY 1 tablet 2 TIMES DAILY (route: oral) Med Classific ation: Cardiovas cular Therapy Agents morphine 15 mg immediate release tablet 10-12 00:00: 00 10-28 23:59 :00 No [id number] 1 tablet NEEDED 1 tablet NEEDED (route: oral) Med Classific ation: Analgesic , Anti-infl ammatory or Antipyret ic rosuvastati n 5 mg tablet 10-12 00:00: 00 Yes [id number] 1 tablet BEDTIME 1 tablet BEDTIME (route: oral) Med Classific ation: Cardiovas cular Therapy Agents spironolact one 25 mg tablet 10-12 00:00: 00 Yes [id number] 0.5 tablet DAILY 0.5 tablet DAILY (route: oral) Med Classific ation: Cardiovas cular Therapy Agents timolol 0.5 % eye drops 10-12 00:00: 00 Yes [id number] 1 drops DAILY 1 drops DAILY (route: ophthalmic (eye)) Med Classific ation: Ophthalmi c Agents amlodipine 5 mg tablet 10-14 00:00: 00 Yes [id number] 1 tablet 2 TIMES DAILY 1 tablet 2 TIMES DAILY (route: oral) Med Classific ation: Cardiovas cular Therapy Agents Dilaudid 2 mg tablet 10-28 00:00: 00 Yes [id number] 1 tablet EVERY 6 HOURS 1 tablet EVERY 6 HOURS (route: oral) Med Classific ation: Analgesic , Anti-infl ammatory or Antipyret ic Immunizations Ordered Immunization Name Filled Immunization Name Date Status Comments Refusal Reason INFLUENZA, TIV (INACTIVATED) 2024-10-30 00:00:00 INFLUENZA, TIV (INACTIVATED) 2023-11-19 00:00:00 Vital Signs Vital Name Observation Time Observation Value Commen ts Temperature 2024-11-22 09:23:00.000 98.7 [degF] Temperature 2024-11-15 08:35:00.000 97.7 [degF] Temperature 2024-11-08 08:17:00.000 98 [degF] Temperature 2024-11-02 11:52:00.000 97.8 [degF] Temperature 2024-10-29 10:23:00.000 98.3 [degF] Temperature 2024-10-25 11:01:00.000 98 [degF] Temperature 2024-10-22 10:20:00.000 98 [degF] Temperature 2024-10-18 11:00:00.000 98.1 [degF] Temperature 2024-10-15 13:05:00.000 98.1 [degF] Temperature 2024-10-12 12:02:00.000 97 [degF] BMI (%) 2024-10-12 18:32:26.000 20 kg/m2 Height 2024-10-12 18:32:21.000 60 [in_us] Pulse 2024-11-22 09:23:00.000 79 /min Pulse 2024-11-15 08:35:00.000 70 /min Pulse 2024-11-08 08:17:00.000 62 /min Pulse 2024-11-02 11:52:00.000 64 /min Pulse 2024-10-29 10:23:00.000 74 /min Pulse 2024-10-22 10:20:00.000 76 /min Pulse 2024-10-18 11:00:00.000 62 /min Pulse 2024-10-15 13:05:00.000 74 /min Pulse 2024-10-12 12:02:00.000 84 /min O2 Saturation (%) 2024-11-22 09:23:00.000 99 % O2 Saturation (%) 2024-11-15 08:35:00.000 97 % O2 Saturation (%) 2024-11-08 08:17:00.000 99 % O2 Saturation (%) 2024-11-02 11:52:00.000 97 % O2 Saturation (%) 2024-10-29 10:23:00.000 96 % O2 Saturation (%) 2024-10-25 11:01:00.000 96 % O2 Saturation (%) 2024-10-22 10:20:00.000 98 % O2 Saturation (%) 2024-10-18 11:00:00.000 98 % O2 Saturation (%) 2024-10-15 13:05:00.000 98 % O2 Saturation (%) 2024-10-12 12:02:00.000 97 % Respirations 2024-11-22 09:23:00.000 20 /min Respirations 2024-11-15 08:35:00.000 20 /min Respirations 2024-11-08 08:17:00.000 18 /min Respirations 2024-11-02 11:52:00.000 18 /min Respirations 2024-10-29 10:23:00.000 18 /min Respirations 2024-10-25 11:01:00.000 18 /min Respirations 2024-10-22 10:20:00.000 18 /min Respirations 2024-10-18 11:00:00.000 18 /min Respirations 2024-10-15 13:05:00.000 18 /min Respirations 2024-10-12 12:02:00.000 18 /min Weight (lbs) 2024-11-22 09:36:00.000 105 [lb_av] Weight (lbs) 2024-11-08 08:17:00.000 106 [lb_av] Weight (lbs) 2024-11-02 11:53:00.000 106 [lb_av] Weight (lbs) 2024-10-12 18:32:26.000 106 [lb_av] Systolic Blood Pressure 2024-11-22 09:23:00.000 160 mm [Hg] Systolic Blood Pressure 2024-11-15 08:35:00.000 164 mm [Hg] Systolic Blood Pressure 2024-11-08 08:17:00.000 158 mm [Hg] Systolic Blood Pressure 2024-11-02 11:52:00.000 148 mm [Hg] Systolic Blood Pressure 2024-10-29 10:23:00.000 146 mm [Hg] Systolic Blood Pressure 2024-10-25 11:01:00.000 152 mm [Hg] Systolic Blood Pressure 2024-10-22 10:20:00.000 144 mm [Hg] Systolic Blood Pressure 2024-10-18 11:00:00.000 150 mm [Hg] Systolic Blood Pressure 2024-10-15 13:06:00.000 150 mm [Hg] Systolic Blood Pressure 2024-10-12 18:58:00.000 158 mm [Hg] Diastolic Blood Pressure 2024-11-22 09:23:00.000 74 mm [Hg] Diastolic Blood Pressure 2024-11-15 08:35:00.000 70 mm [Hg] Diastolic Blood Pressure 2024-11-08 08:17:00.000 70 mm [Hg] Diastolic Blood Pressure 2024-11-02 11:52:00.000 74 mm [Hg] Diastolic Blood Pressure 2024-10-29 10:23:00.000 80 mm [Hg] Diastolic Blood Pressure 2024-10-25 11:01:00.000 80 mm [Hg] Diastolic Blood Pressure 2024-10-22 10:20:00.000 80 mm [Hg] Diastolic Blood Pressure 2024-10-18 11:00:00.000 72 mm [Hg] Diastolic Blood Pressure 2024-10-15 13:06:00.000 78 mm [Hg] Diastolic Blood Pressure 2024-10-12 18:58:00.000 88 mm [Hg] Plan of Treatment Planned Activity Planned Date Details Comments Future Scheduled Test SKILLED NU RSE TO EVALUATE PATIENT, IDENTIFY PRIMARY AND CO-MORBID CONDITIONS CODED PER CODING GUIDELINES, AND DEVELOP PATIENT SPECIFIC PLAN OF CARE THAT INCLUDES PATIENT GOAL FOR HOME HEALTH. [code = SKILLED NURSE TO EVALUATE PATIENT, IDENTIFY PRIMARY AND CO-MORBID CONDITIONS CODED PER CODING GUIDELINES, AND DEVELOP PATIENT SPECIFIC PLAN OF CARE THAT INCLUDES PATIENT GOAL FOR HOME HEALTH.] Future Scheduled Test SKILLED NU RSE FOR O/A, TEACHING RELATED TO CELIAC DZ, GERD FOR EARLY IDENTIFICATION OF EXACERBATION OF DISEASE PROCESS. [code = SKILLED NURSE FOR O/A, TEACHING RELATED TO CELIAC DZ, GERD FOR EARLY IDENTIFICATION OF EXACERBATION OF DISEASE PROCESS.] Future Scheduled Test SKILLED NU RSE FOR O/A, TEACHING AND MANAGEMENT OF CKD FOR EARLY IDENTIFICATION OF EXACERBATION OF DISEASE PROCESS [code = SKILLED NURSE FOR O/A, TEACHING AND MANAGEMENT OF CKD FOR EARLY IDENTIFICATION OF EXACERBATION OF DISEASE PROCESS] Future Scheduled Test OCCUPATION AL THERAPIST TO EVALUATE PATIENT FOR IADLS [code = OCCUPATIONAL THERAPIST TO EVALUATE PATIENT FOR IADLS] Future Scheduled Test SKILLED NU RSE FOR O/A OF RESPIRATORY SYSTEM TO IDENTIFY CHANGES ASSOCIATED WITH EXACERBATION AND TO PROVIDE SKILLED TEACHING ON MANAGEMENT OF ASTHMA PROCESS. [code = SKILLED NURSE FOR O/A OF RESPIRATORY SYSTEM TO IDENTIFY CHANGES ASSOCIATED WITH EXACERBATION AND TO PROVIDE SKILLED TEACHING ON MANAGEMENT OF ASTHMA PROCESS.] Future Scheduled Test SKILLED NU RSE TO INSTRUCT/REINFORCE MEASURES TO PREVENT BARRIERS TO CARE. [code = SKILLED NURSE TO INSTRUCT/REINFORCE MEASURES TO PREVENT BARRIERS TO CARE.] Future Scheduled Test SKILLED NU RSE FOR O/A OF SELF-CARE DEFICITS AND TO PROVIDE TEACHING RELATED TO SAFE PROVISION OF ADLS. [code = SKILLED NURSE FOR O/A OF SELF-CARE DEFICITS AND TO PROVIDE TEACHING RELATED TO SAFE PROVISION OF ADLS.] Future Scheduled Test SKILLED NU RSE TO ASSESS PATIENT S PSYCHOSOCIAL STATUS TO IDENTIFY POTENTIAL ISSUES THAT MAY COMPLICATE THE PROVISION OF THE PLAN OF CARE INCLUDING THE PATIENT S ABILITY TO ACCESS COMMUNITY RESOURCES AND PSYCHOSOCIAL SUPPORT SERVICES. [code = SKILLED NURSE TO ASSESS PATIENT S PSYCHOSOCIAL STATUS TO IDENTIFY POTENTIAL ISSUES THAT MAY COMPLICATE THE PROVISION OF THE PLAN OF CARE INCLUDING THE PATIENT S ABILITY TO ACCESS COMMUNITY RESOURCES AND PSYCHOSOCIAL SUPPORT SERVICES.] Future Scheduled Test SKILLED NU RSE TO OBTAIN BLOOD SUGAR PRN FOR SIGNS AND SYMPTOMS OF HYPO/HYPERGLYCEMIA. IF OBTAINED BY PATIENT/CAREGIVER PRIOR TO VISIT AND PATIENT IS NOT SYMPTOMATIC, SKILLED NURSE TO RECORD READING FROM PATIENT LOG. [code = SKILLED NURSE TO OBTAIN BLOOD SUGAR PRN FOR SIGNS AND SYMPTOMS OF HYPO/HYPERGLYCEMIA. IF OBTAINED BY PATIENT/CAREGIVER PRIOR TO VISIT AND PATIENT IS NOT SYMPTOMATIC, SKILLED NURSE TO RECORD READING FROM PATIENT LOG.] Future Scheduled Test SKILLED NU RSE FOR O/A AND SKILLED TEACHING IN MANAGEMENT OF DVT, PE DISEASE. [code = SKILLED NURSE FOR O/A AND SKILLED TEACHING IN MANAGEMENT OF DVT, PE DISEASE.] Future Scheduled Test PHYSICAL T HERAPIST TO EVALUATE PATIENT FOR GAIT STABILITY AND STRENGTH [code = PHYSICAL THERAPIST TO EVALUATE PATIENT FOR GAIT STABILITY AND STRENGTH] Future Scheduled Test SKILLED NU RSE TO PROVIDE TEACHING ON SIGNS AND SYMPTOMS AND MANAGEMENT OF HYPERTENSION. [code = SKILLED NURSE TO PROVIDE TEACHING ON SIGNS AND SYMPTOMS AND MANAGEMENT OF HYPERTENSION.] Future Scheduled Test SKILLED NU RSE TO INSTRUCT PATIENT/CAREGIVER ON WARNING SIGNS OF CVA, RISK FACTORS, AND METHODS TO MANAGE NURSING HOME EFFECTS OF CVA. [code = SKILLED NURSE TO INSTRUCT PATIENT/CAREGIVER ON WARNING SIGNS OF CVA, RISK FACTORS, AND METHODS TO MANAGE NURSING HOME EFFECTS OF CVA.] Future Scheduled Test SKILLED NU RSE FOR O/A AND TEACHING OF DIABETIC MANAGEMENT INCLUDING BLOOD SUGAR MONITORING/USE OF GLUCOMETER, DIABETIC DIET, LOWER EXTREMITY SKIN INSPECTION, PROPER SKIN/FOOT CARE, AND SIGNS AND SYMPTOMS HYPO/HYPERGLYCEMIA TO REPORT. [code = SKILLED NURSE FOR O/A AND TEACHING OF DIABETIC MANAGEMENT INCLUDING BLOOD SUGAR MONITORING/USE OF GLUCOMETER, DIABETIC DIET, LOWER EXTREMITY SKIN INSPECTION, PROPER SKIN/FOOT CARE, AND SIGNS AND SYMPTOMS HYPO/HYPERGLYCEMIA TO REPORT.] Future Scheduled Test SKILLED NU RSE FOR O/A AND SKILLED TEACHING RELATED TO SIGNS AND SYMPTOMS AND MANAGEMENT OF OA. [code = SKILLED NURSE FOR O/A AND SKILLED TEACHING RELATED TO SIGNS AND SYMPTOMS AND MANAGEMENT OF OA.] Future Scheduled Test SKILLED NU RSE FOR O/A AND SKILLED TEACHING RELATED TO SIGNS AND SYMPTOMS AND MANAGEMENT OF RA.. [code = SKILLED NURSE FOR O/A AND SKILLED TEACHING RELATED TO SIGNS AND SYMPTOMS AND MANAGEMENT OF RA..] Future Scheduled Test PATIENT GUNN S A RISK OF HOSPITALIZATION AND ED USE. SKILLED NURSE TO ESTABLISH SUPPORT MEASURES TO MINIMIZE RISK OF HOSPITALIZATION AND ED USE, AND INSTRUCT PATIENT/CAREGIVER ON METHODS TO REDUCE AVOIDABLE HOSPITALIZATION AND ED USE. [code = PATIENT HAS A RISK OF HOSPITALIZATION AND ED USE. SKILLED NURSE TO ESTABLISH SUPPORT MEASURES TO MINIMIZE RISK OF HOSPITALIZATION AND ED USE, AND INSTRUCT PATIENT/CAREGIVER ON METHODS TO REDUCE AVOIDABLE HOSPITALIZATION AND ED USE.] Future Scheduled Test SKILLED NU RSE TO PROVIDE INSTRUCTION TO PATIENT/CAREGIVER RELATED TO DISCHARGE PLANNING. [code = SKILLED NURSE TO PROVIDE INSTRUCTION TO PATIENT/CAREGIVER RELATED TO DISCHARGE PLANNING.] Future Scheduled Test SKILLED NU RSE TO PERFORM ENVIRONMENTAL SAFETY RISK ASSESSMENT AND FALL RISK ASSESSMENT AND PROVIDE INSTRUCTION TO IMPLEMENT ENVIRONMENTAL SAFETY AND FALL PREVENTION STRATEGIES THROUGHOUT THE CERTIFICATION PERIOD. SKILLED NURSE WILL MAINTAIN SITUATIONAL AWARENESS AND WILL NOTIFY CLINICAL DRYING MACHINE RECEIVER AND PHYSICIAN/PROVIDER WITH ANY CHANGE IN CONDITION. [code = SKILLED NURSE TO PERFORM ENVIRONMENTAL SAFETY RISK ASSESSMENT AND FALL RISK ASSESSMENT AND PROVIDE INSTRUCTION TO IMPLEMENT ENVIRONMENTAL SAFETY AND FALL PREVENTION STRATEGIES THROUGHOUT THE CERTIFICATION PERIOD. SKILLED NURSE WILL MAINTAIN SITUATIONAL AWARENESS AND WILL NOTIFY CLINICAL DRYING MACHINE RECEIVER AND PHYSICIAN/PROVIDER WITH ANY CHANGE IN CONDITION.] Future Scheduled Test SKILLED NU RSE FOR OBSERVATION AND ASSESSMENT OF PATIENT S PAIN LEVEL AND EFFECTIVENESS OF PAIN MANAGEMENT REGIMEN. SKILLED NURSE TO INSTRUCT PATIENT/CAREGIVER REGARDING PHARMACOLOGIC AND NON-PHARMACOLOGIC PAIN CONTROL MEASURES. SKILLED NURSE TO REPORT TO PHYSICIAN IF PAIN LEVEL IS OUTSIDE OF ESTABLISHED PARAMETERS. [code = SKILLED NURSE FOR OBSERVATION AND ASSESSMENT OF PATIENT S PAIN LEVEL AND EFFECTIVENESS OF PAIN MANAGEMENT REGIMEN. SKILLED NURSE TO INSTRUCT PATIENT/CAREGIVER REGARDING PHARMACOLOGIC AND NON-PHARMACOLOGIC PAIN CONTROL MEASURES. SKILLED NURSE TO REPORT TO PHYSICIAN IF PAIN LEVEL IS OUTSIDE OF ESTABLISHED PARAMETERS.] Future Scheduled Test SKILLED NU RSE TO ASSESS PATIENT'S SKIN INTEGRITY AND INSTRUCT PATIENT/CAREGIVER ON MEASURES TO PREVENT PRESSURE ULCERS. [code = SKILLED NURSE TO ASSESS PATIENT'S SKIN INTEGRITY AND INSTRUCT PATIENT/CAREGIVER ON MEASURES TO PREVENT PRESSURE ULCERS.] Future Scheduled Test SKILLED NU RSE TO PROVIDE ASSESSMENT AND TEACHING/REINFORCEMENT OF MANAGEMENT OF DEPRESSION INCLUDING DISEASE PROCESS, MEDICATION MANAGEMENT, COPING SKILLS AND IDENTIFY CHANGES ASSOCIATED WITH DEPRESSIVE DISORDERS FOR EARLY INTERVENTION. [code = SKILLED NURSE TO PROVIDE ASSESSMENT AND TEACHING/REINFORCEMENT OF MANAGEMENT OF DEPRESSION INCLUDING DISEASE PROCESS, MEDICATION MANAGEMENT, COPING SKILLS AND IDENTIFY CHANGES ASSOCIATED WITH DEPRESSIVE DISORDERS FOR EARLY INTERVENTION.] Future Scheduled Test SKILLED NU RSE TO REVIEW PATIENT MEDICATIONS (PRESCRIPTION/OTC). INSTRUCT PATIENT/CAREGIVER ON ALL MEDICATIONS INCLUDING PURPOSE, WHEN TO TAKE, IMPORTANCE OF MEDICATION ADHERENCE, MONITORING OF EFFECTIVENESS, ADVERSE DRUG REACTIONS, POSSIBLE SIDE EFFECTS, AND WHEN TO NOTIFY AGENCY OR PHYSICIAN/PROVIDER OF ANY CONCERNS. [code = SKILLED NURSE TO REVIEW PATIENT MEDICATIONS (PRESCRIPTION/OTC). INSTRUCT PATIENT/CAREGIVER ON ALL MEDICATIONS INCLUDING PURPOSE, WHEN TO TAKE, IMPORTANCE OF MEDICATION ADHERENCE, MONITORING OF EFFECTIVENESS, ADVERSE DRUG REACTIONS, POSSIBLE SIDE EFFECTS, AND WHEN TO NOTIFY AGENCY OR PHYSICIAN/PROVIDER OF ANY CONCERNS.] Goal Patient Goal - GET STRONGER NO FATIGUE Goal Provider Goal - A PLAN OF CARE WILL BE ESTABLISHED THAT MEETS PATIENT'S CORRECTION NEEDS AND INCLUDES PATIENT GOAL FOR HOME HEALTH. Goal Provider Goal - EXACERBATIONS OF GASTROINTESTINAL DISEASE WILL BE PROMPTLY IDENTIFIED AND INTERVENTIONS IMPLEMENTED TO MINIMIZE RISKS TO PATIENT BY END OF EPISODE. Goal Provider Goal - PATIENT/CAREGIVER WILL VERBALIZE UNDERSTANDING OF GENITOURINARY DISEASE PROCESS, AND EXACERBATIONS OF GENITOURINARY DISEASE WILL BE PROMPTLY IDENTIFIED FOR EARLY INTERVENTION THROUGHOUT THE CERTIFICATION PERIOD. Goal Provider Goal - OCCUPATIONAL THERAPY EVALUATION TO BE COMPLETED WITH RECOMMENDATIONS AND WRITTEN PLAN OF TREATMENT ESTABLISHED FOR THE PHYSICIAN S SIGNATURE. Goal Provider Goal - PATIENT/CAREGIVER WILL VERBALIZE/DEMONSTRATE MANAGEMENT OF RESPIRATORY DISEASE PROCESS. CHANGES IN RESPIRATORY STATUS WILL BE IDENTIFIED AND REPORTED TO PHYSICIAN FOR PROMPT INTERVENTION THROUGHOUT THE CERTIFICATION PERIOD. Goal Provider Goal - PATIENT / CAREGIVER WILL VERBALIZE UNDERSTANDING OF BARRIERS PREVENTING PROPER CARE AND DEMONSTRATE MEASURES TO ELIMINATE THOSE BARRIERS DURING THIS EPISODE. Goal Provider Goal - PATIENT/CAREGIVER WILL VERBALIZE/DEMONSTRATE UNDERSTANDING OF SAFE PROVISION OF ADLS BY THE END OF THE CERTIFICATION PERIOD. Goal Provider Goal - CHANGES IN PSYCHOSOCIAL STATUS WILL BE IDENTIFIED AND PLAN IMPLEMENTED TO MINIMIZE PATIENT RISKS THROUGHOUT THE CERTIFICATION PERIOD. Goal Provider Goal - BLOOD SUGAR READING WILL BE OBTAINED ORDERED THROUGHOUT CERTIFICATION PERIOD. Goal Provider Goal - PATIENT/CAREGIVER WILL VERBALIZE/DEMONSTRATE THE ABILITY TO MANAGE CIRCULATORY DISEASE PROCESS AND EXACERBATIONS WILL BE IDENTIFIED FOR EARLY INTERVENTION THROUGHOUT THE CERTIFICATION PERIOD. Goal Provider Goal - A PHYSICAL THERAPY EVALUATION TO BE COMPLETED WITH RECOMMENDATIONS AND/OR WRITTEN PLAN OF TREATMENT ESTABLISHED FOR PHYSICIAN S SIGNATURE. Goal Provider Goal - PATIENT/CAREGIVER WILL VERBALIZE SIGNS AND SYMPTOMS OF HYPERTENSION AND WILL BE ABLE TO DEMONSTRATE ABILITY TO MANAGE EXACERBATION BY END OF THE EPISODE. Goal Provider Goal - PATIENT/CAREGIVER WILL DEMONSTRATE COMPLIANCE WITH TREATMENT REGIME AND VERBALIZE SIGNS AND SYMPTOMS TO REPORT WELL POSSIBLE COMPLICATIONS OF CVA BY END OF EPISODE. Goal Provider Goal - PATIENT/CAREGIVER WILL VERBALIZE/DEMONSTRATE KNOWLEDGE OF DIABETIC MANAGEMENT. CHANGES IN DIABETIC STATUS WILL BE IDENTIFIED AND REPORTED TO PHYSICIAN FOR PROMPT INTERVENTION THROUGHOUT THE CERTIFICATION PERIOD. Goal Provider Goal - PATIENT/CAREGIVER WILL VERBALIZE UNDERSTANDING OF MUSCULOSKELETAL DISEASE INCLUDING SIGNS AND SYMPTOMS, MANAGEMENT, AND PRESCRIBED TREATMENT REGIMEN BY END OF EPISODE. Goal Provider Goal - PATIENT/CAREGIVER WILL VERBALIZE UNDERSTANDING OF AUTOIMMUNE DISEASE INCLUDING SIGNS AND SYMPTOMS, MANAGEMENT OF COMPLICATIONS, AND PRESCRIBED TREATMENT REGIMEN BY END OF EPISODE. Goal Provider Goal - PATIENT WILL HAVE SUPPORT MEASURES ESTABLISHED TO PREVENT HOSPITALIZATION AND ED USE AND PATIENT/CAREGIVER WILL VERBALIZE/DEMONSTRATE METHODS TO REDUCE AVOIDABLE HOSPITALIZATION AND ED USE BY END OF EPISODE. Goal Provider Goal - PATIENT/CAREGIVER WILL VERBALIZE UNDERSTANDING OF DISCHARGE PLANNING INSTRUCTIONS BY DATE OF DISCHARGE. Goal Provider Goal - PATIENT/CAREGIVER WILL VERBALIZE/DEMONSTRATE EFFECTIVE ENVIRONMENTAL SAFETY AND FALL PREVENTION STRATEGIES, WILL REMAIN SAFE IN THE COMMUNITY, AND WILL BE FREE OF DANGER TO SELF AND OTHERS THROUGHOUT THE CERTIFICATION PERIOD. Goal Provider Goal - PATIENT/CAREGIVER WILL DEMONSTRATE UNDERSTANDING OF PHARMACOLOGIC AND NONPHARMACOLOGIC PAIN CONTROL MEASURES AND PATIENT WILL HAVE IMPROVEMENT IN PAIN INTERFERING WITH ACTIVITY EVIDENCED BY PAIN AT A LEVEL THAT IS ACCEPTABLE TO THE PATIENT AND PAIN LEVEL WITHIN ESTABLISHED PARAMETERS BY END OF CERTIFICATION PERIOD. Goal Provider Goal - PATIENT/CAREGIVER WILL VERBALIZE UNDERSTANDING OF PRESSURE ULCER PREVENTION BY END OF THE EPISODE. Goal Provider Goal - PATIENT/CAREGIVER WILL VERBALIZE/DEMONSTRATE UNDERSTANDING OF THE MANAGEMENT OF DEPRESSION THROUGHOUT THE CERTIFICATION PERIOD AND SYMPTOMS ARE IDENTIFIED AND MANAGED TO MAINTAIN PATIENT SAFETY IN THE HOME. Goal Provider Goal - PATIENT/CAREGIVER WILL VERBALIZE UNDERSTANDING OF EDUCATION PROVIDED ON MEDICATIONS BY THE END OF THE CERTIFICATION PERIOD. Progress Notes Progress Notes <paragraph>[Visit Date: [address] RN]:</paragraph><paragraph>SNV 11/22</paragraph><paragraph></paragraph><paragraph>ABNORMAL VITALS: BP 160/74</paragraph><paragraph></paragraph><paragraph>FALLS: DENIES FALLS</paragraph><paragraph></paragraph><paragraph>ABNORMAL PHYSICAL ASSESSMENT FINDINGS: ELEVATED BP IN BP LOG AND DURING TODAYS VISIT</paragraph><paragraph></paragraph><paragraph>MEDICATION CHANGES: NO MED CHANGES</paragraph><paragraph></paragraph><paragraph>OBSERVATION AND ASSESSMENT PROVIDED: A&OX4. NO CO PAIN THIS MORNING. TAKING DILAUDID NEEDED WHICH PROVIDES RELIEF. LUNG SOUNDS CLEAR ON RA. DENIES CP/PALPITATIONS/SOB. NO EDEMA NOTED. DENIES URINARY SYMPTOMS. LBM 11/22, DENIES N/V/D. SKIN INTACT. PT EXPRESSED CONCERN REGARDING HER WEIGHT LOSS, WEIGHT DOCUMENTATION HX SEEMS TO BE STABLE AT 105-106, PATIENT STATED SHE WEIGHED MORE PRIOR TO OUR CARE, ENCOURAGED PT TO INCREASE PROTEIN INTAKE AND MONITOR HER WEIGHTS DAILY. PATIENT HAS BEEN DOCUMENTING BPS PRIOR TO AND AFTER MED ADMINISTRATION. LITTLE TO NO EFFECT TO BP POST MED ADMINISTRATION. NOTED TO HAVE BP IN THE 190'S ON A FEW DIFFERENT OCCASSIONS, DECREASED SLIGHTLY TO THE 170S AFTER TAKING MEDICATIONS. PT INSTRUCTED TO SEEK MEDICAL ATTENTION IMMEDIATELY IF HER BP SUSTAINS >180 OR SHE EXPERIENCES ANY S/S OF HYPERTENSION AND STROKE. ENCOURAGED PT TO CALL ANI[facility] JO IF SHE HAS QUESTIONS OR CONCERNS. PT TO SEE PCP ON 11/24, LEFT MESSAGE WITH HEAD CONTROL CLERK PATIENT NEEDS TO HAVE A DIFFERENT HTN REGIMEN THIS HAS NOT BEEN WORKING EFFECTIVELY. PATIENT VERBALIZES UNDERSTANDING. </paragraph><paragraph></paragraph><paragraph>EDUCATION: EDUCATED ON IMPORTANCE OF SEEKING MEDICAL ATTENTION IMMEDIATELY IF HER BPS REMAIN >180 SYSTOLICALLY OR SHE EXPERIENCES BLURRY VISION, CP, SOB, FATIGUE, PALPITATIONS OR HEADACHE NOT RELIEVED WITH TYLENOL. EDUCATED ON INCREASING PROTEIN IN HER DIET SHE STATES SHE HAS LOST WEIGHT IN THE PAST FEW MONTHS. PT VERBALIZES UNDERSTANDING. </paragraph><paragraph></paragraph><paragraph>INTERVENTIONS NEEDED AT NEXT VISIT: CARDIAC ASSESSMENT, MED EDUCATION, PAIN ASSESSMENT </paragraph><paragraph></paragraph><paragraph>COMMUNICATION WITH MD: LEFT MESSAGE WITH HEAD CONTROL CLERK REGARDING HYPERTENSION</paragraph><paragraph></paragraph><paragraph>NEXT MD APPOINTMENT: 11/24 PCP</paragraph><paragraph></paragraph><paragraph>PT AND CAREGIVER INSTRUCTED TO CALL [facility] WITH ANY QUESTIONS OR CONCERNS AND/OR CHANGES IN CONDITION, STATE UNDERSTANDING</paragraph> Encounters Start Date/Time End Date/Time Encounter Type Admission Type Attending [facility] Care Department Encounter ID Discharge Date Discharge Status Discharge Condition Discharge Reason Percent Goals Met 2024-10-12 00:00:00 2024-12-10 00:00:00 Outpatient NEW ADMISSION MARSHA ROQUE [facility] [id number] 48.84
== END 2024-11-23 07:34 | disposition home or self-care (01) ==
LOC: HO.HMGCLDS 07:33
PROVIDERS: PCP Internal Medicine; Visit Provider Internal Medicine
DX: I10 Essential (primary) hypertension (principal); R73.9 Hyperglycemia, unspecified
CPT/HCPCS: 36415; 80053; 83036; 84439; 84443; 85025

== ENCOUNTER 2024-11-24 09:15 | Outpatient (AMB) | payer MEDICARE, OTHER, SELFPAY ==
[2024-11-24 09:17] VITALS: BP 166/78; PULSE 70; RESP 18; TEMP 36.7; O2SAT 97; BMI 20.5
--- NOTE | 2024-11-24 09:17 | A.OFFPC_ITS ---
Vital Signs 11/24/24 09:17 Height 5 ft Weight 105 lb BMI 20.5 BP 166/78 H Blood Pressure Location Rt brachial Position Sitting Respiration 18 Pulse 70 Pulse Source Pulse Oximeter Temp 98.1 F Temp Source Oral Pulse Oximetry (%) 97 Oxygen Delivery Method Room Air Intake Visit Reasons: 3m Follow up Intake Note: Pt is here today for a follow up visit. Pt states that her BP has been running high. Allergies cephalexin (CEPHALEXIN) Allergy (Severe, Verified 11/24/24 09:20) ANAPHYLAXIS nitrofurantoin (From MACRODANTIN) Allergy (Severe, Verified 11/24/24 09:20) ANAPHYLAXIS albuterol (ALBUTEROL) Allergy (Intermediate, Verified 11/24/24 09:20) ITCHING Sulfa (Sulfonamide Antibiotics) (SULFA (SULFONAMIDE ANTIBIOTICS)) Allergy (Intermediate, Verified 11/24/24 09:20) ITCHING acetaminophen (Percocet) Allergy (Unknown, Verified 11/24/24 09:20) itchy amoxicillin Allergy (Unknown, Verified 11/24/24 09:20) itchy and diarrhea doxycycline Allergy (Unknown, Verified 11/24/24 09:20) itchy gluten (GLUTEN) Allergy (Unknown, Verified 11/24/24 09:20) Ciliac disease indomethacin (Indocin) Allergy (Unknown, Verified 11/24/24 09:20) n/a lactose Allergy (Unknown, Verified 11/24/24 09:20) severe diarrhea latex Allergy (Unknown, Verified 11/24/24 09:20) itchy rash oxycodone (Percocet) Allergy (Unknown, Verified 11/24/24 09:20) itchy olmesartan Adverse Reaction (Intermediate, Verified 11/24/24 09:20) diarrhea DAIRY PRODUCTS Allergy (Unknown, Uncoded 11/24/24 09:20) severe diarrhea ventolin tabs Allergy (Unknown, Uncoded 11/24/24 09:20) Palpitations Medication List - Last Reconciled 11/24/24 by Jia Parmar MD amlodipine 5 mg PO BID apixaban (Eliquis) 5 mg PO BID blood sugar diagnostic As directed cefpodoxime 200 mg PO DAILY cyanocobalamin (vitamin B-12) 1,000 mcg IM Q4W duloxetine 20 mg PO BID gabapentin 200 mg (2 x 100 mg) PO TID hydromorphone 2 mg PO Q6H insulin syringe-needle U-100 use for monthly injections lancets (Accu-Chek Fastclix Lancet Drum) Test blood sugar once a day latanoprost 0.005% 1 drp ophthalmic (eye) BEDTIME levothyroxine 50 mcg PO DAILY loperamide 2 mg PO BID PRN metoprolol succinate ER 50 mg PO BID omeprazole 40 mg PO BID rosuvastatin 5 mg PO DAILY spironolactone 25 mg PO DAILY timolol maleate 0.5% 1 drp ophthalmic (eye) QAM trazodone 50 mg PO BEDTIME vancomycin 125 mg PO BID Tobacco use date assessed: 11/24/24 Fall risk assessment: 1 Fall in past year Last assessed Fall Risk: 11/24/24 Dental Screening Dental Screen Date: 03/11/24 HPI 3m Follow up HPI Details Patient presents for the follow-up on hypertension hypothyroidism hyperlipidemia. She went to [facility] ER with complaint of general weakness and confusion. Brain CT was negative for acute stroke but a concern was raised about patient taking opiates in combination with gabapentin and trazodone for chronic pain and insomnia. Patient is established with physiatry Dr. Gonzalez who has been prescribed opiates. Patient takes Dilaudid as needed only getting prescription for 18 tablets for a month. She reports elevated blood pressure on and off at home. She reports being under lot of stress taking care of her sick and progressively worsening chronic lower back pain due to spinal stenosis. Patient's daughter is concerned about patient getting episodes of confusion difficulty finding words and possibility of TIA. Patient denies any weakness or numbness in extremities difficulty swallowing [facility] Medical History (Updated 11/24/24 @ 20:10 by Jia Parmar MD) Lumbar spinal stenosis due to adjacent segment disease after fusion procedure Hx of rheumatoid arthritis Hx of ectopic Back pain Arthritis Thyroid disease Diabetes Peptic ulcer Fatty liver Asthma On anticoagulant therapy DVT (deep venous thrombosis) Pulmonary embolism Osteopenia Minor skin laceration Annual physical exam Vitamin B 12 deficiency Vitamin D deficiency Chronic infection of knee joint prosthesis Diarrhea Knee pain Hypothyroidism Normal Pap smear Degenerative joint disease (DJD) of lumbar spine Microscopic colitis GERD (gastroesophageal reflux disease) Factor V deficiency Depression Colitis without complication Hyperglycemia Hyperlipidemia HTN (hypertension) Surgical History History of dental surgery History of release of tendon Hx of hammer toe correction History of bunionectomy of left great toe Hx of cholecystectomy H/O colonoscopy H/O cervical spine surgery History of lumbar surgery History of carpal tunnel syndrome History of knee replacement History of vagotomy History of total abdominal hysterectomy and bilateral salpingo-oophorectomy Family History Father Bladder cancer Mother Hypertension Social History Household Members: Spouse Housing: House Are you a primary career development coordinator/teacher to a significant other at home: No Do you presently have visiting nurse or other home services: No Alcohol intake: never Patient Tobacco Use Status: Never used Tobacco e-Cigarette/Vaping Use: Never Used Second Hand Smoke Exposure: Yes service: No Current occupational status: retired Cognitive needs: No Hearing needs: No Vision needs: Yes Questionnaire PHQ-9 Over the last 2 weeks, how often have you been bothered by any of the following problems? 1. Little interest or pleasure in doing things: not at all 2. Feeling down, depressed, or hopeless: not at all 3. Trouble falling or staying asleep, or sleeping too much: not at all 4. Feeling tired or having little energy: not at all 5. Poor appetite or overeating: not at all 6. Feeling bad about yourself - or that you are a failure or have let yourself or your family down: not at all 7. Trouble concentrating on things, such as reading the newspaper or watching television: not at all 8. Moving or speaking so slowly that other people could have noticed. Or the opposite - being so fidgety or restless that you have been moving around a lot more than usual: not at all 9. Thoughts that you would be better off or of hurting yourself in some way: not at all Total score: 0 Depression Screening Interpretation: Negative Depression Screening Done: Yes Source: Developed by Drs. Andrew Pompa, Tasha Barnard, Jonathan Minor and colleagues, with an educational farooq from [employer]. Thrive Questionnaire Date Thrive assessed: 03/08/24 I am a: Patient What is your living situation today?: I have a steady place to live Within the past 12 months, did the food you bought not last and you didn't have the money to get more?: Never true Within the past 12 months, did you worry whether your food would run out before you got money to buy more?: Never true Do you have trouble paying for medicines?: No Do you have trouble getting transportation to medical appointments?: No Do you have trouble paying your heating and electricity bill?: No Do you have trouble taking care of your child, family member or friend?: No Do you have trouble with day-to-day activities such as bathing, preparing meals, shopping, managing finances, etc.?: No Are you currently unemployed and looking for a job?: No Are you interested in more education?: No Please select the resources that you would like help with: None Currently or been in a relationship where the following occur: No concerns reported THRIVE Score: 0 ROSALINDA-7 AMB Questionnaire ROSALINDA-7 Date ROSALINDA - 7 assessed: 03/11/24 Feeling nervous, anxious, or on edge: 0 = Not at all Not being able to stop or control worryin = Not at all Worrying too much about different things: 0 = Not at all Trouble relaxin = Not at all Being so restless that it is hard to sit still: 0 = Not at all Becoming easily annoyed or irritable: 0 = Not at all Feeling afraid as if something awful might happen: 0 = Not at all Total ROSALINDA-7 score (0-4 normal; 5-9 mild; 10-14 moderate; 15-21 severe): 0 Source: Developed by Drs. Andrew Pompa, Tasha Barnard, Jonathan Minor and colleagues, with an educational farooq from [employer]. Review of Systems Const All systems reviewed & are unremarkable except as noted in HPI and below Eyes Reports no additional complaints ENT Reports no additional complaints Card Reports no additional complaints Resp Reports no additional complaints GI Reports no additional complaints Reports no additional complaints Physical exam (Primary Care) Vital Signs: Last Vital Signs Temp 98.1 F 11/24/24 09:17 Pulse 70 11/24/24 09:17 Resp 18 11/24/24 09:17 BP 166/78 H 11/24/24 09:17 Pulse Ox 97 11/24/24 09:17 Oxygen Delivery Method Room Air 11/24/24 09:17 BMI result Body Mass Index 20.5 Tobacco/Smoking Status: Tobacco use Status Tobacco use date assessed 11/24/24 11/24/24 09:30 Patient Tobacco Use Status Never used Tobacco 11/24/24 09:20 e-Cigarette/Vaping Use Never Used 11/24/24 09:20 PHQ-9: PHQ-9 Score PHQ-9: Total score 0 11/24/24 09:30 Depression Screening Interpretation: Negative Thrive Assessment: Date of Thrive Assessment Date Thrive assessed 03/08/24 11/24/24 09:20 Currently or been in a relationship where the following occur: No concerns reported Const General: no acute distress HENMT Head: Yes normal to inspection Face and sinus: Yes normal facial exam Mouth: Normal oral and palatal mucosa present Throat: Yes posterior oropharynx normal Eyes General: appearance normal, both eyes and all related structures Neck Neck: Yes no lymphadenopathy and Yes supple Resp Effort & Inspection: normal respiratory effort Auscultation: clear to auscultation bilaterally Cardio Rhythm: regular rhythm Heart sounds: S1 normal heart sound present and S2 normal heart sound present GI Inspection: Yes normal to inspection Palpation (GI): Soft to palpation Percussion: Yes normal to percussion Auscultation: normal bowel sounds Neuro Cranial nerves: Yes CN's II-XII intact bilaterally Cognition (Neuro): normal cognition Gait exam (Neuro): Assisted gait required Motor exam (neuro): 5/5 motor strength present throughout Coordination: [id number] test normal Romberg Test: Negative Coding Level of Care Code Est Pt Level 4 (27868) Diagnoses CVA (cerebral vascular accident) I63.9 HTN (hypertension) I10 Hyperlipidemia E78.5 Factor V deficiency D68.2 CKD (chronic kidney disease) stage 3, GFR 30-59 ml/min N18.30 Lumbar spinal stenosis due to adjacent segment disease after fusion procedure M48.061; M51.36 Assessment & Plan Assessment & Plan (1) CVA (cerebral vascular accident): Code(s): I63.9 - Cerebral infarction, unspecified Category: Medical Plan: For the episodes of confusion expressive aphasia obtain MRI of the brain to evaluate for CVA and carotid Doppler, patient requested referral to [facility] Neurology (2) HTN (hypertension): Code(s): I10 - Essential (primary) hypertension Category: Medical Plan: Continue amlodipine metoprolol and increase spironolactone to 25 mg, patient will continue to monitor her blood pressure and hydralazine will be restarted if blood pressure is persistently elevated. Follow-up in 1 month (3) Hyperlipidemia: Code(s): E78.5 - Hyperlipidemia, unspecified Category: Medical Plan: Continue statin (4) Factor V deficiency: Comment: on Eliquis f/u Code(s): D68.2 - Hereditary deficiency of other clotting factors Category: Medical Plan: Continue Eliquis (5) CKD (chronic kidney disease) stage 3, GFR 30-59 ml/min: Comment: Renal ultrasound 4 mm nonobstructive right kidney stone 07/2023 Code(s): N18.30 - Chronic kidney disease, stage 3 unspecified Category: Medical Plan: Monitor renal function and avoid nephrotoxins (6) Lumbar spinal stenosis due to adjacent segment disease after fusion procedure: Comment: Patient is established with pain management , treated with opiates PRN, Dilaudid and gabapentin Code(s): M48.061 - Spinal stenosis, lumbar region without neurogenic claudication; M51.36 - Other intervertebral disc degeneration, lumbar region Category: Medical Plan: Patient will discuss discontinuing opiates with Dr. Campos Orders: Orders MR head/brain wo con Today I63.9 - Cerebral infarction, unspecified, R29.818 - Other symptoms and signs involving the nervous system US carotid duplex BI Today I63.9 - Cerebral infarction, unspecified Referrals Neurology Referral I63.9 - Cerebral infarction, unspecified, R41.3 - Other amnesia Medications: Changed From spironolactone 12.5 mg (1/2 x 25 mg) PO DAILY 90 tabs 3RF To spironolactone 25 mg PO DAILY 90 tabs 3RF
--- OUTSIDE RECORDS SUMMARY | 2024-11-24 10:51 | XMS_ITS | Clinical Summary ---
Author Organization [facility] Address [address] [place] [address] Care Team Providers Care Canvassing Manager Name Role Phone Pcp, No Primary Care [...] Refill [facility] Department of Infectious Disease [place] [address] [place] [address] Emir Cowan MD C. difficile colitis from [...] this topic Medical Devices Implanted Type Area Wheelage Clerk Device Identifier Shelf Expiration Date Model / Serial / Lot [id number] Insert Articular 3-4 C-H Std [id number] Knee Net Mold Uhmwpe - [id number] Implanted:Qty: 1 on 03/17/2020 by Tray Duncan MD at [facility] Joint Prosthesis Right: Knee [employer] [id number] 04/02/2027 [id number] / / [id number] Oral Implanted:Qty: 3 Oral Tooth Procedures Procedure [...] Maintenance Insurance MEDICARE PART [place] [facility] [place] Member Subscriber Plan / Payer (Ef fective 2010-Present) Name:Lynda Leslie Member ID:[id number] Relation to Subscriber:Self Name:Lynda Leslie Subscriber ID:[id number] Payer ID:[id number] Group ID:Not on file Type:Not on file Address: [place] [address] [place] [address] COMMERCIAL Advance Directives Documents on File Type Date Recorded Patient Coffee Shop Manager Expl anation Advance Directive-Scan 04/14/2024 RX AP PROVAL TO ID Advance Directive-Scan 07/01/2022 APPRO VAHE OF MEDICATION * Full Code (Latest Code Status on File) Date Activated Date Inactivated Comments 03/16/2020 7:24 PM Care Teams Canvassing Manager Relationship Specialty Start Date End Date Pcp, No PCP - General General Medicine 10/24/20
--- OUTSIDE RECORDS SUMMARY | 2024-11-24 10:51 | XMS_ITS | Clinical Summary ---
Author Organization [facility] Address [address] [place] [address] Care Team Providers Care Petroleum Terminal Plant Operator Name Role Phone Jia Parmar MD Primary Care Provider [phone] Social History Tobacco Use Types Packs/Day Years [...] age to complete this topic Care Teams Petroleum Terminal Plant Operator Relationship Specialty Start Date End Date Jia Parmar MD [address] [facility] [place] [address] PCP - General Guest Advisor 12/09/18
--- OUTSIDE RECORDS SUMMARY | 2024-11-24 10:51 | XMS_ITS | Clinical Summary ---
Author Organization [facility] Address [address] [place] [address] Phone Care Team Providers Care Collector Name Role Phone Jia Parmar MD Primary Care Provider Allergies Active Allergy Reactions Criticality Noted Date [...] this topic Medical Devices Implanted Type Area In Home Nanny Device Identifier Shelf Expiration Date Model / Serial / Lot Iol Softport Ao [id number] 31.0d-08/14/2016 Implanted:2016 (Quantity not on file) MEDLINE 06/30/2018 Description:OS Iol Softport Ao [id number] 30.0d-09/16/2016 Implanted:2016 (Quantity not on file) MEDLINE 07/31/2020 Description:OD Insurance MEDICARE PART A & B [email or web address] TOTAL CHOICE INDEMNITY MEDICARE PART A & B [email or web address] TOTAL CHOICE INDEMNITY Care Teams Collector Relationship Specialty Start Date End Date Jia Parmar MD [address] [place] [address] PCP - General Internal Medicine 10/24/16 Additional Source Comments The information contained in this document represents components of the legal health record. It is not the complete legal health record.[facility]
--- OUTSIDE RECORDS SUMMARY | 2024-11-24 10:51 | XMS_ITS | Patient Health Record ---
Author Organization [facility] Address [address] [facility] [address] Care Team Providers Care Concrete Smoother Name Role Phone Jia Parmar MD Primary Care Provider Melina Dunne Unavailable [phone] Allergies Allergen (clinical drug ingredient) Drug/Non Drug [...] Polyneuropathy due to type 2 diabetes mellitus (907698335) Type 2 diabetes mellitus with diabetic polyneuropathy (E11.42) Active confirmed Vital Signs Blood pressure diastolic 65 mm Hg 09/22/2024 Height 5 ft 0 in in 09/22/2024 Blood pressure systolic 126 mm Hg 09/22/2024 Weight 111 lbs 09/22/2024 BMI 21.68 kg/m2 09/22/2024 Procedures Procedure Date Ordered Date Performed Result Body Sit e 92165-SHNCIMA NAIL, 6 OR MORE 02/18/2024 N/A 05069-LKRC SKIN LESIONS, OVER 4 02/18/2024 N/A 00672-JUTMMFI NAIL, 6 OR MORE 06/24/2024 N/A 82815-RYIW SKIN LESIONS, OVER 4 06/24/2024 N/A 11637-ZXDRMVS NAIL, 6 OR MORE 09/22/2024 N/A 57443-DCOG SKIN LESIONS, OVER 4 09/22/2024 N/A Encounters Encounter Location Date Provider Diagnosis [address] [address] 02/18/2024 Melina Booth Type 2 diabetes mellitus with diabetic polyneuropathy E11.42 ; Tinea unguium B35.1 and Xerosis of skin L85.[address] [address] 06/24/2024 Melina Booth Type 2 diabetes mellitus with diabetic polyneuropathy E11.42 ; Tinea unguium B35.1 ; Other hammer toe(s) (acquired), right foot M20.41 and Other hammer toe(s) (acquired), left foot M20.[address] [address] 09/22/2024 Melina Booth Type 2 diabetes mellitus with diabetic polyneuropathy E11.42 and Tinea unguium B35.[address] [address] 06/24/2024 Melina Booth Assessments Encounter Date Diagnosis [...] X ray : Foot, right 3V 08/04/2017 71293-KXJFDVX NAIL, 6 OR MORE 10/27/2017 46480-SMJMKMS NAIL, 6 OR MORE 08/04/2017 56475-EIZZKVQ NAIL, 6 OR MORE 05/12/2017 41526-PPJPWKY NAIL, 6 OR MORE 06/24/2024 37894-QGHYQOL NAIL, 6 OR MORE 09/22/2024 41203-GJVPKAW NAIL, 6 OR MORE 02/18/2024 03935-OSLYUHF NAIL, 6 OR MORE 2018 82619-QIVJARF NAIL, 6 OR MORE 03/10/2017 45491-HEVYHOH NAIL, 6 OR MORE 01/06/2017 27839-EQGFHYZ NAIL, 6 OR MORE 10/23/2016 87906-EZYIQLE NAIL, 6 OR MORE 07/25/2016 05739-OKBPUDI NAIL, 6 OR MORE 05/10/2016 14069-NLAPQCY NAIL, 6 OR MORE 02/14/2016 49612-YKJKCUB NAIL, 6 OR MORE 11/20/2015 60855-LAOGAXK NAIL, 6 OR MORE 07/05/2015 11737-Uthjdgqa Plate 07/27/2015 65581-Wugaicvo Plate 05/29/2016 54946-Qisrefvu Plate 06/10/2016 09859- Debride <25 sq cm 06/10/2016 53124- Debride <25 sq cm 09/25/2016 34001- Debride <25 sq cm 10/23/2016 52381- Debride <25 sq cm 08/14/2015 45864-STAR SKIN LESIONS, OVER 4 07/05/19 16 67312-CHYU SKIN LESIONS, OVER 4 11/20/19 16 56972-AZYA SKIN LESIONS, OVER 4 02/14/20 16 79527-DOJM SKIN LESIONS, OVER 4 05/11/19 17 39511-OVWN SKIN LESIONS, OVER 4 10/24/19 17 67714-UMJB SKIN LESIONS, OVER 4 01/07/20 17 71219-IXBA SKIN LESIONS, OVER 4 05/13/19 18 02917-YQLF SKIN LESIONS, OVER 4 03/10/19 18 95032-YNRA SKIN LESIONS, OVER 4 02/13/20 21 76397-NQXZ SKIN LESIONS, OVER 4 05/15/19 22 09018-JRKE SKIN LESIONS, OVER 4 02/18/20 24 91247-AORK SKIN LESIONS, OVER 4 09/23/19 25 34982-XOKK SKIN LESIONS, OVER 4 06/25/19 25 84866-XBHU SKIN LESIONS, OVER 4 08/05/19 18 13971-CDSF SKIN LESIONS, OVER 4 01/13/20 18 86728-GYMM SKIN LESIONS, OVER 4 10/28/19 18 40285-QFSO SKIN LESIONS, OVER 4 04/13/19 19 18104-HZIL SKIN LESIONS, OVER 4 07/14/19 95764-XYWR SKIN LESIONS, OVER 4 10/13/19 19 89408-FSAW SKIN LESIONS, OVER 4 01/12/20 19 75870-UPAF SKIN LESIONS, OVER 4 04/12/19 82438-UPIL SKIN LESIONS, OVER 4 07/14/19 38544-YARW SKIN LESIONS, OVER 4 10/18/19 09582-OREI SKIN LESIONS, OVER 4 01/17/20 56335-YRPE SKIN LESIONS, OVER 4 04/24/19 32605-BMSF SKIN LESIONS, OVER 4 07/25/19 90943-QMCM SKIN LESIONS, OVER 4 11/21/19 95060-TYYD SKIN LESIONS, 2 TO 4 07/26/19 17 95089, R7602-DIVXT/INJECT, JOINT/BURSA 0 04/13/2018 26216, J0702- Neuroma/Injection 11/20/19 16 25896-Fukapujbc, Toes 05/10/2016 72323-Wzwdlvytt, Toes 05/15/2016 31007-Yzaefmibo, Toes 03/12/2023 Next Appt Details Provider Name:Melina Muñoz trenton, 12/23/2024 11:15:00 AM, [address] [facility], [place], [address], Insurance Providers Payer Name Payer Address Payer Phone Subscriber Number Group Number Insured Name Patient Relationship to Insured Coverage Start Date Coverage End Date Medicare National [employer] [address] [facility] [address] [id number] Lydna Leslie Self - patient is the insured [facility] [address] [place], [place] [id number] Shayan Leslie Spouse - patient is [...] checked out- couldn't walk 12/03/22 Hospital in [place] /[facility] 5 days after sx ba ck blood clot / c.diff 03/2020 [facility]- pancolitis 02/13/19 [facility] X 3 Days, Pt sstates she fell, dx: c oncusion 05/18/2017
--- OUTSIDE RECORDS SUMMARY | 2024-11-24 10:51 | XMS_ITS | Encounter Summary ---
Author Organization [facility] Address [address] [place] [address] Care Team Providers Care Rim Fire Priming Operator Name Role Phone Pcp, No Primary Care Provider Unavailabl e Reason for Visit * Reason Comments Medication Refill Encounter Details Date Type Department Care Team (Late st Contact Info) Description 11/20/2024 Refill [facility] Department of Infectious Disease [place] [address] [facility] [address] [place] [address] Emir Cowan MD [address] [facility] [address] [place], [place] [id number] C. difficile colitis Social History Tobacco Use [...] colitis documented in this encounter Care Teams Rim Fire Priming Operator Relationship Specialty Start Date End Date Pcp, No PCP - General General Medicine 10/24/20 documented as of this encounter
--- OUTSIDE RECORDS SUMMARY | 2024-11-24 10:52 | XMS_ITS | Clinical Summary ---
Author Organization [facility] Address [address] [place] [address] Phone Care Team Providers Care Rust Proofer Name Role Phone Jia Parmar MD Primary Care Provider [phone] Allergies Active Allergy Reactions Criticality Noted Date [...] EDT - 10/10/2024 12:32 PM EDT Emergency [facility] Emergency [address] [place] [address] Fede Ontiveros MD Kokkinos, Erika, MD Landry, [...] reflex microscopic (10/09/2024 2:18 PM EDT) Specific [place] Urine 1.013 1.003 - 1.030 LAB URINALYSIS - AUTOMATED METHOD 10/09/2024 2:53 PM EDT [facility] pH, Urine 6.0 5.0 - 8.0 pH LAB URINALYSIS - AUTOMATED METHOD 10/09/2024 2:53 PM EDT [facility] Leukocytes, Urine Negative Negative LAB URINALYSIS - AUTOMATED METHOD 10/09/2024 2:53 PM EDT [facility] Nitrite, Urine Negative Negative LAB URINALYSIS - AUTOMATED METHOD 10/09/2024 2:53 PM EDT [facility] Protein, Urine Negative <=Trace mg/dL LAB URINALYSIS - AUTOMATED METHOD 10/09/2024 2:53 PM EDT [facility] Glucose, Urine Negative Negative mg/dL LAB URINALYSIS - AUTOMATED METHOD 10/09/2024 2:53 PM EDT [facility] Ketones, Urine Negative Negative mg/dL LAB URINALYSIS - AUTOMATED METHOD 10/09/2024 2:53 PM EDT [facility] Urobilinogen, Urine 0.2 0.2 - 1.0 mg/dL LAB URINALYSIS - AUTOMATED METHOD 10/09/2024 2:53 PM EDT [facility] Bilirubin, Urine Negative Negative LAB URINALYSIS - AUTOMATED METHOD 10/09/2024 2:53 PM EDT [facility] Blood, Urine Negative Negative LAB URINALYSIS - AUTOMATED METHOD 10/09/2024 2:53 PM T [facility] Urine Urine specimen obtained by clean catch procedure / Unknown Non-blood Collection / Unknown 10/09/2024 2:18 PM EDT 10/09/2024 2:26 PM EDT us Fede Ontiveros MD LAB URINE ORDERABLES Final R esult [facility] [address] [place] [address], * (ABNORMAL) Drug abuse screen 8a panel, urine (10/09/2024 2:18 PM EDT) Amphetamine Screen, Ur Negative Negative LAB CHEMISTRY METHOD 08/09/202 5 3:33 PM EDT [facility] Comment:Certain OTC medicati ons containing ephedrine, phenylephrine, pseudoephedrine and phenylpropanolamine can cause false positive results. Barbiturate Screen, Ur Negative Negative LAB CHEMISTRY METHOD 5 3:33 PM EDT [facility] Benzodiazepine Screen, Ur Negative Negative LAB CHEMISTRY METHOD 5 3:33 PM EDT [facility] Cocaine Screen, Ur Negative Negative LAB CHEMISTRY METHOD 5 3:33 PM EDT [facility] Opiate Screen, Ur Positive(A ) Negative [facility] Cannabinoid (THC) Screen, Ur Negative Negative LAB CHEMISTRY METHOD 5 3:33 PM T [facility] Comment:Specimens from patie nts taking pantoprazole sodium (Protonix) have been shown to produce false positive results. Oxycodone Screen, Ur Negative Negative LAB CHEMISTRY METHOD 5 3:33 PM EDT [facility] Fentanyl, Ur Negative Negative LAB CHEMISTRY METHOD 5 3:33 PM [facility] Urine Urine specimen obtained by clean catch procedure / Unknown Non-blood Collection / Unknown 10/09/2024 2:18 PM EDT 10/09/2024 2:27 PM EDT Narrative [facility] - 10/09/2024 3:33 PM EDT [...] MD LAB URINE ORDERABLES Final R esult [facility] [address] [place] [address], [place] [phone] * Troponin I high sensitivity (10/09/2024 12:54 PM EDT) Only the most recent of2 resultswithin the time period is included. High Sensitivity Troponin I 9 <=54 ng/L LAB CHEMISTRY METHOD 10/09/2024 1:36 PM EDT [facility] Blood Venous blood specimen / Unknown Venipuncture / Unknown 10/09/2024 12:54 PM EDT 10/09/2024 1:00 PM EDT Narrative [facility] - 10/09/2024 1:36 PM EDT High levels of biotin in samples may falsely decrease hsTroponin values. Use caution when interpreting hsTroponin results in patients taking biotin who exhibit renal impairment (eGFR <60) or in patients taking more than 20 mg/day of biotin. us Fede Ontiveros MD LAB BLOOD ORDERABLES Final R esult Performing Organization Address [facility] Co de Phone Number [facility] [address] [place] [address], [place] [phone] * CT Head wo Contrast (10/09/2024 12:05 [...] Signed Date: 10/09/2024 12:20 ET Workstation ID: [id number] Transcribed By: Self Edit Transcribed Date: 10/09/2024 [...] Signed Date: 10/09/2024 12:20 ET Workstation ID: [id number] Transcribed By: Self Edit Transcribed Date: 10/09/2024 12:17 ET us Fede Ontiveros MD IMG CT PROCEDURES Final Resu lt * (ABNORMAL) CBC auto differential (10/09/2024 11:40 AM EDT) WBC 11.0(H) 4.8 - 10.8 K/mcL LAB HEMETOLOGY METHOD 10/09/2024 11:53 AM [facility] RBC 3.70(L) 3.80 - 4.80 M/mcL LAB HEMETOLOGY METHOD 10/09/2024 11:53 AM [facility] Hemoglobin 11.0(L) 11.5 - 16.0 g/dL LAB HEMETOLOGY METHOD 10/09/2024 11:53 AM [facility] Hematocrit 33.3(L) 35.0 - 47.0 % LAB HEMETOLOGY METHOD 10/09/2024 11:53 AM [facility] MCV 90.0 79.0 - 98.0 FL LAB HEMETOLOGY METHOD 10/09/2024 11:53 AM [facility] MCH 29.7 27.0 - 32.0 pcg LAB HEMETOLOGY METHOD 10/09/2024 11:53 AM [facility] MCHC 33.0 32.0 - 37.0 g/dL LAB HEMETOLOGY METHOD 10/09/2024 11:53 AM [facility] RDW 12.5 11.0 - 15.0 % LAB HEMETOLOGY METHOD 10/09/2024 11:53 AM [facility] Platelets 229 130 - 400 K/mcL LAB HEMETOLOGY METHOD 10/09/2024 11:53 AM [facility] MPV 10.8 7.0 - 11.0 FL LAB HEMETOLOGY METHOD 10/09/2024 11:53 AM [facility] NRBC 0.0 <1.0 % LAB HEMETOLOGY METHOD 10/09/2024 11:53 AM [facility] NRBC Absolute 0.00 <0.10 K/mcL LAB HEMETOLOGY METHOD 10/09/2024 11:53 AM [facility] Neutrophils Relative 75.1 % LAB HEMETOLOGY METHOD 10/09/2024 11:53 AM [facility] Lymphocytes Relative 17.1 % LAB HEMETOLOGY METHOD 10/09/2024 11:53 AM [facility] Monocytes Relative 5.4 % LAB HEMETOLOGY METHOD 10/09/2024 11:53 AM [facility] Eosinophils Relative 1.4 % LAB HEMETOLOGY METHOD 10/09/2024 11:53 AM [facility] Basophils Relative 0.5 % LAB HEMETOLOGY METHOD 10/09/2024 11:53 AM [facility] Immature Granulocytes Relative 0.5 % LAB HEMETOLOGY METHOD 10/09/2024 11:53 AM [facility] Neutrophils Absolute 8.23(H) 1.50 - 7.00 K/mcL LAB HEMETOLOGY METHOD 10/09/2024 11:53 AM [facility] Lymphocytes Absolute 1.87 1.00 - 5.00 K/mcL LAB HEMETOLOGY METHOD 10/09/2024 11:53 AM [facility] Monocytes Absolute 0.59 0.20 - 1.00 K/mcL LAB HEMETOLOGY METHOD 10/09/2024 11:53 AM EDT [facility] Eosinophils Absolute 0.15 0.00 - 0.50 K/mcL LAB HEMETOLOGY METHOD 10/09/2024 11:53 AM EDT [facility] Basophils Absolute 0.06 0.00 - 0.20 K/[facility] LAB HEMETOLOGY METHOD 10/09/2024 11:53 AM EDT [facility] Immature Granulocytes Absolute 0.05(H) 0.00 - 0.03 K/[facility] LAB HEMETOLOGY METHOD 10/09/2024 11:53 AM EDT [facility] Blood Venous blood specimen / Unknown Venipuncture / Unknown 10/09/2024 11:40 AM EDT 10/09/2024 11:46 AM EDT Fede Ontiveros MD LAB BLOOD ORDERABLES Final R esult Performing Organization Address City/[facility]/ZIP Co de Phone Number [facility] [address] [place] [address], * (ABNORMAL) Thyroid Stimulating Hormone (TSH) (10/09/2024 11:40 AM EDT) TSH 0.30(L) 0.40 - 4.00 mcIU/mL LAB CHEMISTRY METHOD 10/09/2024 12:47 PM EDT [facility] Blood Venous blood specimen / Unknown Venipuncture / Unknown 10/09/2024 11:40 AM EDT 10/09/2024 11:47 AM EDT Fede Ontiveros MD LAB BLOOD ORDERABLES Final R esult Performing Organization Address City/[facility]/ZIP Co de Phone Number [facility] [address] [place] [address], [place] [phone] * Phosphorus (10/09/2024 11:40 AM EDT) Phosphorus 4.2 2.5 - 4.5 mg/dL LAB CHEMISTRY METHOD 10/09/2024 12:16 PM EDT [facility] Blood Venous blood specimen / Unknown Venipuncture / Unknown 10/09/2024 11:40 AM EDT 10/09/2024 11:47 AM EDT us Fede Ontiveros MD LAB BLOOD ORDERABLES Final R esult [facility] [address] [place] [address], [place] [phone] * Magnesium (10/09/2024 11:40 AM EDT) [facility] Magnesium 2.0 1.9 - 2.6 mg/dL LAB CHEMISTRY METHOD 10/09/2024 12:16 PM EDT [facility] Blood Venous blood specimen / Unknown Venipuncture / Unknown 10/09/2024 11:40 AM EDT 10/09/2024 11:47 AM EDT us Fede Ontiveros MD LAB BLOOD ORDERABLES Final R esult [facility] [address] [place] [address], [place] [phone] * Creatine kinase (10/09/2024 11:40 AM EDT) Total CK 103 22 - 269 unit/L LAB CHEMISTRY METHOD 10/09/2024 12:16 PM EDT [facility] Blood Venous blood specimen / Unknown Venipuncture / Unknown 10/09/2024 11:40 AM EDT 10/09/2024 11:47 AM EDT us Fede Ontiveros MD LAB BLOOD ORDERABLES Final R esult [facility] [address] [place] [address], * (ABNORMAL) Comprehensive Metabolic Panel (CMP) (10/09/2024 11:40 AM EDT) Sodium 139 133 - 145 mmol/L LAB CHEMISTRY METHOD [facility] Potassium 4.4 3.5 - 5.5 mmol/L LAB CHEMISTRY METHOD 10/09/2024 12:16 PM [facility] Chloride 109 96 - 110 mmol/L LAB CHEMISTRY METHOD 10/09/2024 12:16 PM [facility] CO2 26 21 - 32 mmol/L LAB CHEMISTRY METHOD 10/09/2024 12:16 PM [facility] Anion Gap 4 3 - 11 LAB CHEMISTRY METHOD 10/09/2024 12:16 PM [facility] Glucose 129(H) 70 - 100 mg/dL LAB CHEMISTRY METHOD 10/09/2024 12:16 PM [facility] BUN 31(H) 5 - 25 mg/dL LAB CHEMISTRY METHOD 10/09/2024 12:16 PM [facility] Creatinine 1.22(H) 0.50 - 1.10 mg/dL LAB CHEMISTRY METHOD 10/09/2024 12:16 PM [facility] eGFR 45(L) >=60 mL/min/1. 73m2 LAB CHEMISTRY METHOD 10/09/2024 12:16 PM [facility] Comment:Calculation based on the Chronic Kidney Disease Epidemiology Collaboration (CKD-EPI) equation refit without adjustment for race. BUN/Creatinine Ratio 25.4 LAB CHEMISTRY METHOD 10/09/2024 12:16 PM [facility] Calcium 9.2 8.5 - 10.5 mg/dL LAB CHEMISTRY METHOD 10/09/2024 12:16 PM EDT [facility] AST (SGOT) 31 10 - 42 unit/L LAB CHEMISTRY METHOD 10/09/2024 12:16 PM EDT [facility] ALT (SGPT) 41 10 - 60 unit/L LAB CHEMISTRY METHOD 10/09/2024 12:16 PM EDT [facility] Alkaline Phosphatase 65 42 - 121 unit/L LAB CHEMISTRY METHOD 10/09/2024 12:16 PM EDT [facility] Total Protein 6.2 6.0 - 8.0 g/dL LAB CHEMISTRY METHOD 10/09/2024 12:16 PM EDT [facility] Albumin 3.6 3.2 - 5.0 g/dL LAB CHEMISTRY METHOD 10/09/2024 12:16 PM EDT [facility] Total Bilirubin 0.5 0.0 - 1.4 mg/dL LAB CHEMISTRY METHOD 10/09/2024 12:16 PM EDT [facility] Blood Venous blood specimen / Unknown Venipuncture / Unknown 10/09/2024 11:40 AM EDT 10/09/2024 11:47 AM EDT Fede Ontiveros MD LAB BLOOD ORDERABLES Final R esult [facility] [address] [place] [address], * 12-Lead ECG (10/09/2024 11:31 AM EDT) Ventricular Rate ECG 68 BPM GEMUSE Atrial Rate 68 BPM GEMUSE P-R Interval 168 ms GEMUSE QRS Duration 84 ms GEMUSE Q-T Interval 438 ms GEMUSE QTc 465 ms GEMUSE P Wave [place] -11 degrees GEMUSE R [place] -13 degrees GEMUSE T [place] 19 degrees GEMUSE ECG Interpretation Normal sinus [...] AM EDT Narrative 11/19/2022 11:36 AM EDT [facility] Diagnostic Imaging Department [address] [place], [place] [id number] Patient: VILLAHEBER /Age/Sex: 1945 - 77 - F Unit#: [id number] [facility] Ordering Physician: JOSE SAMUELS MD [...] probability of hip fracture of 4.7%. Code 56073 Dictating Physician: CLIVE BREWER MD Electronically Signed by: CLIVE BREWER MD Dic Date/Time: 11/19/22 1133 Sign date/Time: 11/19/22 1136 Procedure Note Clive Brewer MD - 04/08/2023 [facility] Diagnostic Imaging Department [address] [place] [address] Patient: HEBER LESLIE Apoorva /Age/Sex: 1945 - 77 - F Unit#: [id number] Location/Status: [facility]/REG CLI Mnemonic[facility] Ordering Physician: JOSE SAMUELS MD [...] density of the femurs bilaterally is 0.799 gm/dr1ygccm is 79% of that of young normals [...] probability of hip fracture of 4.7%. Code 77098 Dictating Physician: CLIVE BREWER MD Electronically Signed by: CLIVE BREWER MD Dic Date/Time: 11/19/22 1133 Sign date/Time: 11/19/22 1136 Jose Samuels MD IM BI PROCEDURES Final Result from Last 3 Months or Most Recently Relevant to Health Maintenance Insurance MEDICARE [place]ICAID - [place] [facility] Advance Directives Documents on File Type Date Recorded Patient Health Sciences Manager Expl anation Health Care Decision (hx) 03/16/2014 [...] (hx) 03/16/2014 AD CALDERON DIRECTIVE Care Teams Rust Proofer Relationship Specialty Start Date End Date Jia Parmar MD [address] [place] [address] PCP - General Internal Medicine 02/20/24
== END 2024-11-24 10:11 | disposition home or self-care (01) ==
LOC: HO.HMCC 09:16
PROVIDERS: PCP Internal Medicine; Visit Provider Internal Medicine
DX: I12.9 Hypertensive chronic kidney disease with stage 1 through stage 4 chronic kidney disease, or unspecified chronic kidney disease (principal); I63.9 Cerebral infarction, unspecified; D68.2 Hereditary deficiency of other clotting factors; N18.30 Chronic kidney disease, stage 3 unspecified; E78.5 Hyperlipidemia, unspecified; M48.061 Spinal stenosis, lumbar region without neurogenic claudication; M51.369 Other intervertebral disc degeneration, lumbar region without mention of lumbar back pain or lower extremity pain

== ENCOUNTER → 2024-11-24 09:15 | Outpatient (BNVA) | payer MEDICARE, OTHER, SELFPAY | PROVIDERS: PCP Internal Medicine; Visit Provider Internal Medicine | DX: I12.9 Hypertensive chronic kidney disease with stage 1 through stage 4 chronic kidney disease, or unspecified chronic kidney disease (principal); N18.30 Chronic kidney disease, stage 3 unspecified; E03.9 Hypothyroidism, unspecified; E78.5 Hyperlipidemia, unspecified; D68.2 Hereditary deficiency of other clotting factors; M48.061 Spinal stenosis, lumbar region without neurogenic claudication; M51.369 Other intervertebral disc degeneration, lumbar region without mention of lumbar back pain or lower extremity pain; R29.818 Other symptoms and signs involving the nervous system; R41.3 Other amnesia; Z86.73 Personal history of transient ischemic attack (TIA), and cerebral infarction without residual deficits | CPT/HCPCS: 96127; 99212 ==

== ENCOUNTER → 2024-12-06 23:59 | Outpatient (BNV) | payer MEDICARE, OTHER, SELFPAY | PROVIDERS: PCP Internal Medicine; Visit Provider Internal Medicine | DX: I12.9 Hypertensive chronic kidney disease with stage 1 through stage 4 chronic kidney disease, or unspecified chronic kidney disease (principal); E11.22 Type 2 diabetes mellitus with diabetic chronic kidney disease; N18.30 Chronic kidney disease, stage 3 unspecified | CPT/HCPCS: G0179 ==

== ENCOUNTER 2024-12-24 09:27 | Outpatient (REF) | payer MEDICARE, OTHER, SELFPAY ==
[2024-12-24 16:06] LABS: MANUAL DIFF FLAG NO
[2024-12-24 16:17] LABS: Hematocrit 35.2 % (37.0-47.0); Hemoglobin 11.9 g/dl (12.0-16.0); Imm Gran Abs Auto 0.08 X10*3/uL (0.00-0.03); Imm Gran Pct Auto 0.4 % (0.0-0.4); Lymphocytes Absolute Auto 2.5 X10*3/uL (1.2-4.9); Mean Corpuscular HGB Conc 33.8 g/dl (31.0-35.0); Mean Corpuscular Hemoglobin 30.0 pg (27.0-33.0); Mean Corpuscular Volume 88.7 fL (80.0-98.0); NRBC Abs Auto 0.000 X10*3/uL (0.0-0.012); NRBC Pct Auto 0.0 /100WBC (0.0-0.2); Platelet Count 248 X10*3/uL (160-400); Red Blood Count 3.97 X10*6/uL (4.20-5.50); White Blood Count 19.2 X10*3/uL (4.8-10.8)
[2024-12-24 17:28] LABS: Alanine Aminotransferase 42 U/L (0-31); Albumin Level 4.9 g/dL (3.5-5.0); Alkaline Phosphatase 65 U/L (39-117); Anion Gap 14 (12-20); Aspartate Amino Transferase 28 U/L (5-31); Blood Urea Nitrogen 43 mg/dL (9-16); Calcium 10.8 mg/dL (8.4-10.2); Carbon Dioxide 20 mmol/L (22-29); Chloride 108 mmol/L (96-108); Estimated Glomerular Filt Rate 38; Potassium 5.5 mmol/L (3.3-5.1); Sodium 136 mmol/L (135-145); Total Protein 7.4 g/dL (6.5-8.0)
[2024-12-24 18:13] LABS: Free T4 (Free Thyroxine) 1.23 ng/dL (0.71-1.85)
== END 2024-12-24 09:28 | disposition home or self-care (01) ==
LOC: HO.HMGCLDS 09:27
PROVIDERS: PCP Internal Medicine; Visit Provider Internal Medicine
DX: I10 Essential (primary) hypertension (principal); E78.5 Hyperlipidemia, unspecified; F41.9 Anxiety disorder, unspecified; F32.A Depression, unspecified; Z79.01 Long term (current) use of anticoagulants; Z79.891 Long term (current) use of opiate analgesic; Z79.890 Hormone replacement therapy; Z79.2 Long term (current) use of antibiotics; Z79.899 Other long term (current) drug therapy
CPT/HCPCS: 36415; 80053; 84439; 84443; 85025; 99212

== ENCOUNTER 2024-12-24 09:27 | Outpatient (AMB) | payer MEDICARE, OTHER, SELFPAY ==
--- OUTSIDE RECORDS SUMMARY | 2024-12-23 07:15 | XMS_ITS ---
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 Name Role Phone Jia Parmar MD Primary Care Provider UnavailMelina Acharya Unavailable [phone] Allergies Allergen (clinical drug ingredient) Drug/Non Drug Allergy documented on EMR Reaction Allergy Type Onset Date Status Information temporarily unavailable Albuterol Unknown Drug Allergy Active Information temporarily unavailable Bactrim Unknown Drug Allergy Active Information temporarily unavailable Cephalexin Unknown Drug Allergy Active Information temporarily unavailable Indocin Unknown Drug Allergy Active Information temporarily unavailable Lactose Unknown Drug Allergy Active Information temporarily unavailable Macrodantin Unknown Drug Allergy Active Information temporarily unavailable Percocet Restlessness, Nervousness, Feels like she's wired Drug Allergy Active Information temporarily unavailable Ventolin HFA Unknown Drug Allergy Active Information temporarily unavailable Adhesive Unknown Allergy Active Information temporarily unavailable Gluten Unknown Allergy Active Information temporarily unavailable Latex Unknown Allergy Active REASON FOR VISIT At Risk Footcare Medications Medication SIG (Take, Route, Frequency, Duration) Notes Start Date End Date Status Antibiotic Active amLODIPine Besylate 5 MG 1 tablet Orally bid Active Caltrate 600+D 600-800 MG-UNIT 1 tablet Orally Twice a day Active Ammonium Molybdate A ctive Clindamycin HCl 300 MG 1 capsule Orally every 6 hrs; Duration: 5 days PRN for DENTIST 06/10/2016 Active Esomeprazole Magnesium Not-Taking Fish Oil 1000 mg 1 capsule Orally Once a day Not-Taking Spironolactone 25 MG 1 tablet Orally Once a day Active Aerochamber Plus Not -Taking Cyanocobalamin B12 injection 1 X per M Not-Taking Physical Therapy . . . 2-3x/week; Duration: 3-4 weeks 07/08/2016 Not-Taking Colchicine 0.6 MG 1 tablet Orally Once a day; Duration: 30 day(s) 05/02/2016 Not-Taking Physical Therapy . . . 2-3x/week; Duration: 3-4 weeks Not-Taking Lunesta 3 MG 1 tablet immediately before bedtime Orally Once a day Not-Taking Benzonatate 200 MG 1 capsule Orally Three times a day Not-Taking Lidocaine 5 % 1 patch to intact skin remove after 12 hours Externally Once a day Not-Taking Levalbuterol Tartrate Not-Taking Gabapentin 300 MG 1 capsule Orally Three times a day; Duration: 30 day(s) Not-Taking Xopenex Not-Taking Physical Therapy . . . 2-3x/week; Duration: 3-4 weeks 04/10/2016 Not-Taking Physical Therapy 3-4x per week for 3-4 weeks Not-Taking traMADol HCl Not-Reji ing Nortriptyline HCl 10 MG TK 1 C PO QD HS UTD Orally Not-Taking Ultram 50 MG 1 tablet as needed Orally every 6 hrs; Duration: 5 days 02/19/2017 Not-Taking Dramamine Not-Taking traMADol HCl 50 MG 1 tablet as needed Orally every 6 hrs; Duration: 10 days PRN 03/10/2017 Not-Taking Lexapro 5 MG 1 tablet Orally Once a day Not-Taking ALPRAZolam XR 0.5 MG 1 tablet Orally twice a day Not-Taking Qvar 40 MCG/ACT 1 puff Inhalation Twice a day Not-Taking Timolol Maleate 0.5 % Ophthalmic Not-Taking Skelaxin 800 MG 1 tablet Orally Three times a day PRN Not-Taking Gabapentin 600 1 TABLET THREE TIMES A DAY ORALLY 30 DAY(S); Duration: 30 Not-Taking Budesonide ER 20 mg Not-Taking Gabapentin 600 MG TAKE 1 TABLET BY MOUTH THREE TIMES DAILY; Duration: 30 Not-Taking Gabapentin 300 MG 1 capsule before bedtime Orally Three times a day; Duration: 30 days Not-Taking Extra Depth Orthopedic Shoes (1 Pair) with Customized Heat Molded Multidensity Innersoles (3 Pair) as directed Dx: NIDDM/Polyneuropath y (E11.42), Hammertoe Foot Deformity (M20.41,M20.42), Preulcerative Skin Lesion(s) (L85.1 07/13/2018 Not-Taking rOPINIRole HCl FOR RLS Not-T aking Xarelto Not-Taking Extra Depth Diabetic Shoes with 3 Pair Custom heat-molded multi-density innersoles for 1 year Dx: 10/23/2016 Not-Taking NexIUM 40 MG 1 capsule Orally Once a day Not-Taking Nortriptyline HCl No t-Taking oxyCODONE HCl 5 MG 0.5 tablet as needed Orally every 6 hrs; Duration: 5 days 08/08/2022 Not-Taking Diclofenac gel, used with PSK cream up to 4 times a day Not-Taking Budesonide 3 MG as directed Orally Once a day Not-Taking Vitamin D3 Not-Takin g Xalatan 0.005 % 1 drop into affected eye in the evening Ophthalmic Once a day Active Timolol Hemihydrate 0.5 % 1 drop into affected eye Ophthalmic Once a day Active Ammonium Lactate 12 % 1 application Externally to affected areas of dry skin to feet except for between the toes Twice a day; Duration: 30 days Active Extra Depth Diabetic Shoes with 3 Pair Custom heat-molded multi-density innersoles for 1 year Dx: Active hydrALAZINE HCl Not- Taking Prilosec Active Multivitamin Adults 50+ Orally Active Synthroid 50 MCG 1 tablet Orally Once a day Active Gabapentin 300 1 CAPSULE BEFORE BEDTIME THREE TIMES A DAY ORALLY 30 DAYS; Duration: 30 Active eliquis Active Crestor 5 MG 1 tablet Orally [...] ast year? No Points 0 Interpretation Negative Vital Signs Height 5 ft 0 in in 12/23/2024 Weight 111 lbs 12/23/2024 BMI 21.68 kg/m2 12/23/2024 Blood pressure systolic 128 mm Hg 12/24/19 25 Blood pressure diastolic 65 mm Hg 025 Procedures Procedure Date Ordered Date Performed Result Body Sit e 89893-KENYOGV NAIL, 6 OR MORE 12/23/2024 N/A 74890-TILD SKIN LESIONS, OVER 4 12/23/2024 N/A Encounters Encounter Location Date Provider Diagnosis [facility] [address] [address] 12/23/2024 Melina Booth Type 2 diabetes mellitus with diabetic polyneuropathy E11.42 and Tinea unguium B35.1 Assessments Encounter Date Diagnosis (ICD Code) Assessment Notes Treatment Notes Treatment Clinical Notes Section Notes 12/23/2024 Type 2 diabetes mellitus with diabetic polyneuropathy (ICD-10 - E11.42) 12/23/2024 Tinea unguium (ICD-10 - B35.1) 12/23/2024 Other Patient Educated with: DIABETIC FOOT CARE INSTRUCTIONS. pdf (DIABETIC FOOT CARE INSTRUCTIONS. pdf) Plan Of Treatment Treatment Notes Assessment Notes Other Patient Educated wit h: DIABETIC FOOT CARE INSTRUCTIONS.pdf (DIABETIC FOOT CARE INSTRUCTIONS.pdf) Pending Test Test Name Order Date 17644-THOKWSQ NAIL, 6 OR MORE 12/23/2024 17790-XOOE SKIN LESIONS, OVER 4 12/24/19 25 Next Appt Details Follow Up: 3 Months, Reason: Provider Name:Melina chowdhury, 03/30/2025 02:45:00 PM, [address] [place] [address], [phone], Procedure Notes * Category Sub-Category Detail Notes [...] use of a nail nipper and/or dremel-type bone grinder, to a more viable healthy nail [...] to maintain effectiveness in symptomatic relief - 83942 Keratoma Treatment Parring or Cutting o f [...] instrumentation by the physician of record - 31685 Progress Notes * VILLA Lynda DDOB:1945 ( 79 yo F)Acc No.[id number]:12/23/2024 Progress Note Patient: Lynda WADSWORTH D Provider: Yoko Booth DPM :1945 A ge:79 Y S ex:Female Date:12/23/2024 Address:[address] [place], [place] [id number] Pcp:Jia Parmar MD Subjective: * Chief Complaints: * A t Risk Footcare * HPI: A t Risk footcare: Pt States Last PCP Visit: D ate 0 07/13/2024 * ROS: G eneral/Constitutional: Nausea d enies, denies. V omiting d enies, denies.?Hunger Thirst d enies, denies. L oss appetite d enies, denies. C hills d enies, denies. F atigue d enies, denies. F ever d enies, denies. N ight Sweats denies, denies. U nexplained weight loss d enies, denies. U nexplained weight gain?denies, denies. H EENTM: Dentures d enies, denies. D izziness d enies, denies. G lasses/contacts a dmits, admits. R etinopathy d enies, denies. B lurred/double vision d enies, denies. T MJ d enies, denies. D ischarge/drainage d enies, denies. I mplants d enies, denies. S ore throat d enies, denies. D ental implants?denies, denies. H karina of hearing d enies, denies. D ifficulty chewing/swallowing/speaking d enies, denies. N ose bleeds d enies, denies. S ore mouth d enies, denies. R espiratory: On Oxygen d enies, denies. P neumonia/pleurisy d enies, denies. B ronchitis d enies, denies. E mphysema d enies, denies. C oughing?denies, denies. C ough blood d enies, denies. S hortness of breath d enies, denies. W heezing d enies, denies. C ardiovascular: Pacemaker d enies, denies. M DIGITAL COMMUNITY MANAGER d enies, denies.?WPW d enies, denies. C HF d enies, denies. H eart attack d enies, denies.?Septal defect d enies, denies. R apid beat d enies, denies. C hest pain d enies, denies. A trial Fib. d enies, denies. M urmur/Palpitations d enies, denies. G astrointestinal: Hemorrhoids d enies, denies. S tomach/Abdominal pain?denies, denies. D ark blood stool d enies, denies. I rritable bowel d enies, denies. C onstipation d enies, denies. D iarrhea d enies, denies. H ematology: Swelling d enies, denies. C lots d enies, denies.?Varicose Veins d enies, denies. B ruising d enies, denies. B leeding problem?denies, denies. G enitourinary: Blood urine d enies, denies. F requent/Painfu/urination/bladder control d enies, denies. K idney stones d enies, denies. I nfection (UTI)?denies, denies. N ephropathy d enies, denies. s ex trans dis (STD) d enies, denies. P rostate d enies, denies. M usculoskeletal: Hammertoes d enies, denies. B unions d enies, denies. B ack Pain d enies, denies. M uscle Cramps/ Resting d enies, denies. M uscle cramps / walking d enies, denies. G eneralized aches and pains d enies, denies. W eakness d enies, denies. I nteg.: [place] d enies, denies. S cars d enies, denies. C orns/calluses d enies, denies. I ngrown nails d enies, denies. P ainful nails d enies, denies. O pen Sores d enies, denies. R ashes d enies, denies. ? N eurologic: Difficulty sleeping d enies, denies. B rain disorder?denies, denies. N umbness a dmits, admits. B alance trouble d enies, denies. C onfusion d enies, denies. F ainting/blackouts d enies, denies. T ingling d enies, denies. T remors d enies, denies. * Medical History: * Surgical History: a ppendectomy 1958eptopic 1969hernia 1981knee surgery, left - 10 surgeries knee surgery, right - 2 surgeries carpal tunnel surgery finger surgery nerve surgery - spine L2 and L4 2014Stenosis L4- L5 released pinched nerve 04/30/2019hysterectomy foot surgery - Ankit/Kadi,HT L2nd 03/2016cataract removal LT 08/22/16cataract removal RT 09/16/16enoscopy 01/03/2017Vericocele Repair - RT leg 05/09/17Back surgery 01/19Knee infection 1pick line 1laser surgery 07/05/20vertebrae neck sx 12/20/20colonoscopy 11/19/21Mouth Surgery 06/2022HT repair R4th,5th toes, Exostectomy R 5th toe P/B 3Back surgery 10/20/23 * Hospitalization/Major Diagno stic Procedure: [facility] Days, Pt sstates she fell, dx: concusion 05/18/2017[facility]- pancolitis 02/13/19[place] [facility] 5 days after sx back blood clot / c.diff 03/2020[facility] ER- Fall - police told her to get knee checked out- couldn't walk 12/03/22 * Family History: M other: , poor circulation, diagnosed with Other malignant neoplasm of unspecified site, Unspecified essential hypertension, Unspecified cerebral artery occlusion with cerebral infarction, Family history of arthritis. F ather: , poor circulation, kidney/liver disease, diagnosed with Unspecified essential hypertension, Unspecified cerebral artery occlusion with cerebral infarction, Family history of arthritis. D aughter(s): alive. S on(s): alive. P aternal Grand Mother: heart attack, diagnosed with Unspecified essential hypertension. P aternal Grand Father: heart attack, diagnosed with Unspecified essential hypertension. M aternal Grand Mother: heart attack, diagnosed with Unspecified essential hypertension. M aternal Grand Father: heart attack, diagnosed with Unspecified essential hypertension. S pouse: alive. 2 son(s) , 1 daughter(s) . . * Social History: T obacco Use: T obacco use other than smoking A re you an other tobacco user? N o Tobacco Control (Standard) T obacco use: N onsmoker A dditional Findings: Tobacco non-user C urrent nonsmoker D rugs/Alcohol: D rugs H ave you used drugs other than those for medical reasons in the past 12 months? N o M iscellaneous: C affeine: yes, 1-2 cups per day. Children: yes, 3. Exercise: yes, housework, gardening. Marital status: . 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 D rug/Alcohol: A YG-C (Standard) D id you have a drink containing alcohol in the past year? N o P oints 0 I nterpretation N egative * Medications: T akingSpironolactone 25 MG Tablet 1 tablet Orally Once [...] multi-density innersoles for 1 year Dx: Taking Ammonium [...] reviewed and reconciled with the patient * Allergies: A lbuterolCephalexinLactoseMacrodantinIndocinGlutenBactrimVentolin HFALatexPercocet: Restlessness, Nervousness, Feels like she's wiredAdhesiveyes[Allergies Verified] Objective: * Vitals: H t: 5 ft 0 in, Wt:111, BMI: 21.68, Shoe size:5-5.5, BP:128/65mm Hg, BS:not taken, Wt-k.35 kg. * P ast Orders: L ab:HEMOGLOBIN A1C (GLYCOHEMOGLOBIN) (Order Date - 11/06/2023) (Collection Date & Time - 11/06/2023 12:03 PM) Value Reference Range HEMOGLOBIN A1C % (HH) 5.0 * Examination: O phthalmology Referral: DIABETES EYE EXAM P rocedure Performed: N o E ye Exam not performed: N o reason specified N eurological: SENSORY: Neurological exam demonstrates, reduced light touch sensation, reduced sharp/dull pin prick discrimination , B/L, 5.07 monofilament test performed at plantar aspects of 5 varied sites per foot shows sensation, reduced , B/L. N ails: NAILS are: E longated, overgrown, dystrophic, lytic, greater than 3mm thick, discolored and friable with crumbly malodorous subungual debris, TA, T1, T2, T3, T4, T5, T6, T7, T8, T9. D ermatologic: SKIN FINDINGS: S kin exam reveals Keratotic lesion(s) located at sub 1st MTH B/L, sub 5th MTH B/L, plantar heels B/L. Assessment: * Assessment: 1. T ype 2 diabetes mellitus with diabetic polyneuropathy - E11.42 (Primary) 2 . T inea unguium - B35.1 Plan: * Treatment: 2. O thers Notes: Patient Educated with: DIABETIC FOOT CARE INSTRUCTIONS.pdf (DIABETIC FOOT CARE INSTRUCTIONS.pdf) * Procedures: D ebride Nail 6-10: Nail debridement D ue to the clinical pathology outlined in the [...] use of a nail nipper and/or dremel-type bone grinder, to a more viable healthy nail [...] to maintain effectiveness in symptomatic relief - 26865. K eratoma Treatment: Parring or Cutting of Benign Hyperkeratotic Lesion(s) ( -57) More than 4 Lesions - Due to [...] instrumentation by the physician of record - 53919. * Procedure Codes: 1 1721 DEBRIDE NAIL, 6 OR MORE, Modifiers: XS 94529 TRIM SKIN LESIONS, OVER 4, Modifiers: XS * Preventive Medicine: Screening/Special Tests: F all Risk Screening: N o falls in the past year F ALLS: Screening for Future Fall Risk Have you had any falls with injury in the past year? N o * Follow Up: 3 Months * Images: * Sign off status: Completed true * Provider: Yoko Booth DPM Date: Generated for Anisha stephen/Jaspal/Noah on: 10:23 AM EDT History and Physical Notes * HPI (History of Present Illness) Category Sub-Category Detail Notes Category Not es At Risk footcare Pt States Last PCP Visit: Date: 5 Examination Category Sub-Category Detail Notes Category Not [...] sub 5th MTH B/L, plantar heels B/L Ophthalmology Referral DIABETES EYE EXAM Procedu re Performed:: No Eye Exam not performed:: No reason speci fied Nails NAILS are: Elongated, overg rown, dystrophic, lytic, greater than 3mm thick, discolored and friable with crumbly malodorous subungual debris, TA, T1, T2, T3, T4, T5, T6, T7, T8, T9
[2024-12-24 09:38] VITALS: BP 156/82; PULSE 74; RESP 18; TEMP 36.7; O2SAT 97; BMI 20.1
--- NOTE | 2024-12-24 09:38 | A.OFFPC_ITS ---
Vital Signs 12/24/24 09:38 12/24/24 14:44 Height 5 ft Weight 103 lb BMI 20.1 BP 156/82 H 140/85 H Blood Pressure Location Rt brachial Rt femoral Position Sitting Sitting Respiration 18 Pulse 74 Pulse Source Pulse Oximeter Temp 98.1 F Temp Source Oral Pulse Oximetry (%) 97 Oxygen Delivery Method Room Air Intake Visit Reasons: 1 month f/up Intake Note: Pt is here today for 1 month follow up visit. Allergies cephalexin (CEPHALEXIN) Allergy (Severe, Verified 11/24/24 09:20) ANAPHYLAXIS nitrofurantoin (From MACRODANTIN) Allergy (Severe, Verified 11/24/24 09:20) ANAPHYLAXIS albuterol (ALBUTEROL) Allergy (Intermediate, Verified 11/24/24 09:20) ITCHING Sulfa (Sulfonamide Antibiotics) (SULFA (SULFONAMIDE ANTIBIOTICS)) Allergy (Intermediate, Verified 11/24/24 09:20) ITCHING acetaminophen (Percocet) Allergy (Unknown, Verified 11/24/24 09:20) itchy amoxicillin Allergy (Unknown, Verified 11/24/24 09:20) itchy and diarrhea doxycycline Allergy (Unknown, Verified 11/24/24 09:20) itchy gluten (GLUTEN) Allergy (Unknown, Verified 11/24/24 09:20) Ciliac disease indomethacin (Indocin) Allergy (Unknown, Verified 11/24/24 09:20) n/a lactose Allergy (Unknown, Verified 11/24/24 09:20) severe diarrhea latex Allergy (Unknown, Verified 11/24/24 09:20) itchy rash oxycodone (Percocet) Allergy (Unknown, Verified 11/24/24 09:20) itchy olmesartan Adverse Reaction (Intermediate, Verified 11/24/24 09:20) diarrhea DAIRY PRODUCTS Allergy (Unknown, Uncoded 11/24/24 09:20) severe diarrhea ventolin tabs Allergy (Unknown, Uncoded 11/24/24 09:20) Palpitations Medication List - Last Reconciled 12/24/24 by iJa Parmar MD amlodipine 5 mg PO BID apixaban (Eliquis) 5 mg PO BID blood pressure test kit-medium As directed blood sugar diagnostic As directed cefpodoxime 200 mg PO DAILY cyanocobalamin (vitamin B-12) 1,000 mcg IM Q4W duloxetine 20 mg PO BID gabapentin 200 mg (2 x 100 mg) PO TID hydralazine 20 mg orally 2 times a day; hydromorphone 2 mg PO Q6H insulin syringe-needle U-100 use for monthly injections lancets (Accu-Chek Fastclix Lancet Drum) Test blood sugar once a day latanoprost 0.005% 1 drp ophthalmic (eye) BEDTIME levothyroxine 50 mcg PO DAILY loperamide 2 mg PO BID PRN metoprolol succinate ER 50 mg PO BID omeprazole 40 mg PO BID rosuvastatin 5 mg PO DAILY spironolactone 25 mg PO DAILY timolol maleate 0.5% 1 drp ophthalmic (eye) QAM trazodone 50 mg PO BEDTIME vancomycin 125 mg PO BID Tobacco use date assessed: 11/24/24 Dental Screening Dental Screen Date: 03/11/24 HPI 1 month f/up HPI Details Patient presents for the follow-up. She reports feeling anxious and stressed out. Patient reports having worsening anxiety and occasionally panic attacks before checking her blood pressure in the morning and usually have very high readings. She denies chest pain shortness or breath or palpitations. Patient has been compliant taking her medications regularly. She denies any side effects. PENDING SALE TO [facility] Medical History Lumbar spinal stenosis due to adjacent segment disease after fusion procedure Hx of rheumatoid arthritis Hx of ectopic Back pain Arthritis Thyroid disease Diabetes Peptic ulcer Fatty liver Asthma On anticoagulant therapy DVT (deep venous thrombosis) Pulmonary embolism Osteopenia Minor skin laceration Annual physical exam Vitamin B 12 deficiency Vitamin D deficiency Chronic infection of knee joint prosthesis Diarrhea Knee pain Hypothyroidism Normal Pap smear Degenerative joint disease (DJD) of lumbar spine Microscopic colitis GERD (gastroesophageal reflux disease) Factor V deficiency Depression Colitis without complication Hyperglycemia Hyperlipidemia HTN (hypertension) Surgical History History of dental surgery History of release of tendon Hx of hammer toe correction History of bunionectomy of left great toe Hx of cholecystectomy H/O colonoscopy H/O cervical spine surgery History of lumbar surgery History of carpal tunnel syndrome History of knee replacement History of vagotomy History of total abdominal hysterectomy and bilateral salpingo-oophorectomy Family History Father Bladder cancer Mother Hypertension Social History Household Members: Spouse Housing: House Are you a primary personal care assistant to a significant other at home: No Do you presently have visiting nurse or other home services: No Alcohol intake: never Patient Tobacco Use Status: Never used Tobacco e-Cigarette/Vaping Use: Never Used Second Hand Smoke Exposure: Yes service: No Current occupational status: retired Cognitive needs: No Hearing needs: No Vision needs: Yes Questionnaire Thrive Questionnaire Date Thrive assessed: 03/08/24 I am a: Patient What is your living situation today?: I have a steady place to live Within the past 12 months, did the food you bought not last and you didn't have the money to get more?: Never true Within the past 12 months, did you worry whether your food would run out before you got money to buy more?: Never true Do you have trouble paying for medicines?: No Do you have trouble getting transportation to medical appointments?: No Do you have trouble paying your heating and electricity bill?: No Do you have trouble taking care of your child, family member or friend?: No Do you have trouble with day-to-day activities such as bathing, preparing meals, shopping, managing finances, etc.?: No Are you currently unemployed and looking for a job?: No Are you interested in more education?: No Please select the resources that you would like help with: None Currently or been in a relationship where the following occur: No concerns reported THRIVE Score: 0 ROSALINDA-7 AMB Questionnaire ROSALINDA-7 Date ROSALINDA - 7 assessed: 03/11/24 Source: Developed by Drs. Andrew Pompa, Tasha Barnard, Jonathan Minor and colleagues, with an educational farooq from [employer]. Review of Systems Const All systems reviewed & are unremarkable except as noted in HPI and below Card Reports no additional complaints Resp Reports no additional complaints GI Reports no additional complaints Physical exam (Primary Care) Vital Signs: Last Vital Signs Temp 98.1 F 12/24/24 09:38 Pulse 74 12/24/24 09:38 Resp 18 12/24/24 09:38 BP 156/82 H 12/24/24 09:38 Pulse Ox 97 12/24/24 09:38 Oxygen Delivery Method Room Air 12/24/24 09:38 BMI result Body Mass Index 20.1 Tobacco/Smoking Status: Tobacco use Status Tobacco use date assessed 11/24/24 12/24/24 09:43 Patient Tobacco Use Status Never used Tobacco 12/24/24 09:43 e-Cigarette/Vaping Use Never Used 12/24/24 09:43 Thrive Assessment: Date of Thrive Assessment Date Thrive assessed 03/08/24 12/24/24 09:43 Currently or been in a relationship where the following occur: No concerns reported Const General: no acute distress HENMT Head: Yes normal to inspection Resp Effort & Inspection: normal respiratory effort Auscultation: clear to auscultation bilaterally Cardio Rhythm: regular rhythm Heart sounds: S1 normal heart sound present and S2 normal heart sound present GI Inspection: Yes normal to inspection Palpation (GI): Soft to palpation Percussion: Yes normal to percussion Auscultation: normal bowel sounds Coding Level of Care Code Est Pt Level 4 (17447) Diagnoses HTN (hypertension) I10 Hyperlipidemia E78.5 Anxiety and depression F41.9; F32.A Assessment & Plan Assessment & Plan (1) HTN (hypertension): Code(s): I10 - Essential (primary) hypertension Category: Medical Plan: Stress management discussed with the patient. Metoprolol will be increased from 50 mg twice a day to 75 mg twice a day. Patient will continue spironolactone amlodipine and hydralazine. She was advised not to monitor her blood pressure she will follow-up in 1 week (2) Hyperlipidemia: Code(s): E78.5 - Hyperlipidemia, unspecified Category: Medical Plan: Continue statin (3) Anxiety and depression: Code(s): F41.9 - Anxiety disorder, unspecified; F32.A - Depression, unspecified Category: Medical Plan: Continue duloxetine and gabapentin. Patient was advised to increase gabapentin to 3 tablets at bedtime. Stress management and sleep hygiene discussed with the patient Orders: Orders TSH reflex Free T4 Today E78.5 - Hyperlipidemia, unspecified, I10 - Essential (primary) hypertension Comprehensive Met. Panel Today E78.5 - Hyperlipidemia, unspecified, I10 - Essential (primary) hypertension Complete Blood Count Auto Diff Today E78.5 - Hyperlipidemia, unspecified, I10 - Essential (primary) hypertension Medications: Changed From metoprolol succinate ER 50 mg PO BID 180 tabs 3RF To metoprolol succinate ER 75 mg (1.5 x 50 mg) PO BID 270 tabs 3RF
--- OUTSIDE RECORDS SUMMARY | 2024-12-24 10:22 | XMS_ITS | Clinical Summary ---
Author Organization [facility] Address [address] [place] [address] Care Team Providers Care Coating Operator Name Role Phone Pcp, No Primary [...] muscle spasms. 42 tablet 03/21/19 21 Active vancomycin (VANCOCIN) 125 MG capsuleIndicat ions:C. difficile colitis Take 1 capsule (125 mg total) by mouth 2 (two) times a day. 60 capsule 11 11/23/19 25 026 Active cefpodoxime (VANTIN) 200 MG tabletIndicati ons:C. difficile colitis,Infect ion of prosthetic knee joint, initial encounter Take 1 tablet (200 mg total) by mouth daily. 90 tablet 2 11/29/19 25 025 Active cefpodoxime (VANTIN) 200 MG tabletIndicati ons:C. difficile colitis,Infect ion of prosthetic knee joint, initial encounter Take 1 tablet (200 mg total) by mouth daily. 90 tablet 2 03/29/19 25 025 Discontinued Active Problems Problem Noted Date Diagnosed Date Benign essential HTN 03/17/2020 HLD (hyperlipidemia) 03/17/2020 Glaucoma 03/17/2020 Type 2 diabetes mellitus wit hout complication, without long-term current use of insulin 03/17/2020 GERD (gastroesophageal reflux disease) Acquired hypothyroidism 03/17/2020 Depression 03/17/2020 Restless leg syndrome 03/17/2020 Infection of prosthetic knee joint 03/16/2020 Encounters Date Type Department Care Team Description 11/28/2024 Refill [facility] of [facility]ious Disease [place] [address] [place] [id number] Emir Cowan MD C. difficile colitis; Infection of prosthetic knee joint, initial encounter 11/20/2024 Refill [facility] [place] [address] [place] [address] Emir Cowan MD C. difficile colitis from [...] 03/16/2020 7:33 PM EST Plan of Treatment Upcoming Encounters Date Type Department Care Team (Late st Contact Info) Description 2025 8:15 AM EST Office Visit [facility] [address] [address] Emir Cowan MD [address] [place] [phone] Health Maintenance Due Date Last Done Comments Hepatitis C Virus Screening 1945 Foot Exam 1955 Lipid Panel 1955 Ophthalmology Exam 1955 Microalbumin/Creatinine Ratio Urine 1963 DTaP/Tdap/Td Vaccines (1 - Tdap) 01/13/1964 Pneumococcal Vaccines 50+ (1 of 2 - PCV) 01/13/1964 Zoster (Shingles) Vaccine (1 of 2) 1995 DXA Bone Density (Females,Ages 65 and older) 2010 RSV Vaccine 50 years and older and Patients (1 - 1-dose 75+ series) 01/13/2020 Hemoglobin A1C 09/13/2020 03/16/2020 Creatinine with GFR 03/19/2021 03/19/2020, 03/18/2020, 03/17/2020, Additional history exists Influenza Vaccine 10/01/2024 11/20/2023, 12/12/2012 COVID-19 Vaccine ( season) 2024 11/20/2023 Advance Care Planning Completed 04/14/2024 Hepatitis B Vaccines Aged Out No long er eligible based on patient's age to complete this topic Medical Devices Implanted Type Area Industrial Machinery Mechanic Device Identifier Shelf Expiration Date Model / Serial / Lot [id number] Insert Articular 3-4 C-H Std [id number] Knee Net Mold Uhmwpe - [id number] Implanted:Qty: 1 on 03/17/2020 by Tray Duncan MD at [facility] Joint Prosthesis Right: Knee [employer] [id number] 04/02/2027 [id number] / / [id number] Oral Implanted:Qty: 3 Oral Tooth Procedures Procedure [...] Comment:Fasting: <100 mg/dL, Non-Fasting: <200 mg/dL (ADA 2004) Blood Urea Nitrogen (BUN) 14 8 - [...] 9:00 PM EST [facility] BLOOD ORDERABLES Final Result [facility] from Last 3 Months or Most Recently Relevant to Health Maintenance Insurance MEDICARE PART A & B [facility] Member Subscriber Plan / Payer ( fective 2020-Present) Name:Lynda Leslie Relation to Subscriber:Self Name:Lynda Leslie Payer ID:Not on file Group ID:Not on file Type:Not on file Address: [address] [address] MEDICARE PART A & B [facility] [place] [id number] Advance Directives Documents on File Type Date Recorded Patient Record Librarian Expl anation Advance Directive-Scan 04/14/2024 RX AP PROVAL TO ID Advance Directive-Scan 07/01/2022 APPRO VAHE OF MEDICATION * Full Code (Latest Code Status on File) Date Activated Date Inactivated Comments 03/16/2020 7:24 PM Care Teams Coating Operator Relationship Specialty Start Date End Date Pcp, No PCP - General General Medicine 10/24/20
--- OUTSIDE RECORDS SUMMARY | 2024-12-24 10:23 | XMS_ITS | Clinical Summary ---
Author Organization [facility] Address [address] [place] [address] Care Team Providers Care Educational Psychology Teacher Name Role Phone Jia Parmar MD Primary Care Provider [phone] Social History Tobacco Use Types Packs/Day Years [...] age to complete this topic Care Teams Educational Psychology Teacher Relationship Specialty Start Date End Date Jia Parmar MD [address] [facility] [place] [address] PCP - General Locomotive Crane Engineer 12/09/18
--- OUTSIDE RECORDS SUMMARY | 2024-12-24 10:23 | XMS_ITS | Clinical Summary ---
Author Organization [facility] Address [address] [place] [phone] Phone Care Team Providers Care Maintenance Repairman Name Role Phone Jia Parmar MD Primary Care Provider [phone] Allergies Active Allergy Reactions Criticality Noted Date [...] this topic Medical Devices Implanted Type Area Paper Products Supervisor Device Identifier Shelf Expiration Date Model / Serial / Lot Iol Softport Ao [id number] 31.0d-08/14/2016 Implanted:2016 (Quantity not on file) MEDLINE 06/30/2018 Description:OS Iol Softport Ao [id number] 30.0d-09/16/2016 Implanted:2016 (Quantity not on file) MEDLINE 07/31/2020 Description:OD Insurance MEDICARE PART A & B [employer] TOTAL CHOICE INDEMNITY MEDICARE PART A & B [employer] TOTAL CHOICE INDEMNITY Care Teams Maintenance Repairman Relationship Specialty Start Date End Date Jia Parmar MD PCP - General Internal Medicine 10/24/16 Additional Source Comments The information contained in this document represents components of the legal health record. It is not the complete legal health record.[facility]
--- OUTSIDE RECORDS SUMMARY | 2024-12-24 10:23 | XMS_ITS | Data Portability ---
Author Organization [place] [facility], All[facility] Address [address] [address] Care Team Providers Care Center Administrator Name Role Phone VENUSRENETTAJana ANN Primary Care Provider Assessment Encounter Date Assessment [...] normal to inspection. Follow-up in 6 months. [email or web address] Not available 04/27/2024 11:02:21 11/26/2024 11/26/2024 79-year-old female presents for cerumen removal. Cerumen removed bilaterally. Follow-up in 6 months. [email or web address] Not available 11/26/2024 11:56:58 Plan of Treatment Reminders Order Date Submit Date Provider Last Modified By Organization Details Last Modified Time Details Appointments Establish ed 15 2025 11:30A M SHANKAR RASMUSSEN PA-C Not available Not available Not available Lab None recorded. Referral None recorded. Procedures None recorded. Surgeries None recorded. Imaging None recorded. Medication Orders None recorded. Patient TargetsNo targets recorded. Patient InstructionsNo instructions recorded. Reason for Referral None Reported. Problems Name Problem SNOMED Code Status Onset Date Resolution Date Notes Provider Name and Address Organization Details Recorded Time Difficult y speaking Active 2013 Hoarsenes s; CMS Risk: moderate risk CMS Treatment : new problem (to examiner) : no additiona l workup planned N ote: Date Diagnosed : 4 12:49 PM (784.49) Not Available [facility] 4 02:40:30 Impacted cerumen 32513939 Active 2014 Impacted cerumen; Location: bilateral CMS Risk: low risk Cond ition: uncontrol led Not Available [facility] 4 02:40:33 Sensorine ural hearing loss of bilateral ears 601030096 Active 2015 Sensorine ural HL, bilateral ; Note: Date Diagnosed : 11/29/2014 12:59 PM (389.18) ; Start Date : 5 Sensori neural hearing loss, bilateral ; Location: bilateral Note: Date Diagnosed : 04/04/2015 10:39 AM (H90.3) Not Available [facility] 4 02:40:26 Dizziness and giddiness 542156462 Active 2015 Dizziness and giddiness ; Note: Date Diagnosed : 12/05/2015 3:08 PM (R42) Not Available [facility] 4 02:40:24 Impacted cerumen of bilateral ears 78131616011 56550 Active 2016 Impacted cerumen, bilateral ; Note: Date Diagnosed : 10/07/2016 10:53 AM (H61.23) SHANKAR RAMSUSSEN PA-C [address] [place] [address], [place], [address] , [facility] - [facility] 5 11:57:00 Impacted cerumen in right ear 32590658780 42806 Active 2020 Impacted cerumen, right ear; Note: Date Diagnosed : 09/27/2020 11:30 AM (H61.21) Not Available [facility] 4 02:40:23 Impacted cerumen in left ear 39114482509 33322 Active 2022 Impacted cerumen, left ear; Note: Date Diagnosed : 04/16/2022 9:38 AM (H61.22) Not Available [facility] 4 02:40:31 Problem Notes None recorded. Procedures Surgical History Date Name Laterality Status Provider Name and Address Organization Details Recorded Time 5 Cerumen removal without microscope bilat completed SHANKAR RASMUSSEN PA-C [address] [place] [address],[address], [address], [facility] - [facility] 04/27/2024 11:02:06 4 Cerumen removal without microscope bilat completed Jose Mosher [facility] 12/29/2023 13:45:22 Imaging Results None recorded. Procedure Notes None recorded. Medical Equipment None Reported. Allergies Allergen ID Allergen Name Allergen Category Reaction Reaction Severity Criticality Documentation Date Start Date Code Code System Note Provider Name and Address Organization Details Recorded Time 74852 perfume environme nt other Not available Not available 07/15/2023 React ion: unkno wn, unspe cifie d;; Not Available [facility] 4 00:59:04 99524 wheat gluten extract food other Not available Not available 07/15/2023 94943 81 RxNorm React ion: unkno wn, unspe cifie d;; Not Available [facility] 4 00:59:04 49929 albuterol medicatio n other Not available Not available 07/15/2023 435 RxNorm React ion: unkno wn, unspe cifie d;; Not Available [facility] 4 00:59:05 79603 latex environme nt,medica tion other Not available Not available 07/15/2023 60067 91 RxNorm React ion: unkno wn, unspe cifie d;; Not Available [facility] 4 00:59:06 79326 indometha veronique medicatio n other Not available Not available 07/15/2023 5781 RxNorm React ion: unkno wn, unspe cifie d;; Not Available [facility] 4 00:59:07 47993 Product containin g penicilli n (product) medicatio n other Not available Not available 07/15/2023 87348 8001 SNOMED React ion: unkno wn, unspe cifie d;; Not Available [facility] 4 00:59:09 83501 cephalexi n medicatio n other Not available Not available 07/15/2023 2231 RxNorm React ion: unkno wn, unspe cifie d;; Not Available [facility] 4 00:59:11 12278 Substance with sulfonami de structure and antibacte rial mechanism of action (substanc e) medicatio n other Not available Not available 07/15/2023 63428 8003 SNOMED React ion: unkno wn, unspe cifie d;; Not Available [facility] 00:59:13 Medications Name Sig Start Date Stop Date Status Note LastModified by Organization Details LastModified Time latanopro st 0.005 % eye drops INSTILL 1 DROP INTO BOTH EYES EVERY NIGHT AT BEDTIME DIRECTED active Not Available Not Available No t Available hydralazi ne 10 mg tablet TAKE 1 TABLET BY MOUTH TWICE A DAY 11/26 completed Not Available Not Available Not Available diclofena c 3 % topical gel 11/26 completed Medicati on ID: [id number] D uration Value: 25 Brand Name: diclofen ac sodium S end Method: E-Prescr ibed Sub s Allowed: subs OK Medic ationGen ericName : diclofen ac sodium Not Available Not Available Not Available gabapenti n 600 mg tablet TAKE 1 TABLET BY MOUTH 3 TIMES A DAY 11/26 completed Not Available Not Available Not Available loperamid e 2 mg capsule 2 MG ORALLY 2 TIMES A DAY NEEDED FOR [...] 50 mg tablet,ex tended release 24 hr TAKE 1 TABLET ORALLY 2 TIMES A DAY active Not Available Not Available No t Available meclizine 12.5 mg tablet 1 tablet by mouth 11/26 completed Medicati on ID: [id number] P maiarimariam d By Name: ANA [place] nd Name: [...] omeprazol e 40 mg capsule,d elayed release 40 MG ORALLY 2 TIMES A DAY active Not Available Not Available No t Available spironola ctone 25 mg tablet 12.5 MG (1/2 X 25 MG) ORALLY DAILY active Not Available Not Available No t Available vancomyci n 125 mg capsule TAKE 1 CAPSULE (125 MG TOTAL) BY MOUTH 2 (TWO) TIMES A DAY. active Not Available Not Available No t Available nortripty line 25 mg capsule 1 capsule by mouth 07/08 completed Medicati on ID: [id number] P colten d By Name: Sheryl Ochoa nd Name: nortript yline Se nd Method: E-Prescr ibed Sub s Allowed: subs OK Speci al Instruct ion: At bedtime Medicati onGeneri cName: nortript yline Not Available Not Available Not Available oxycodone -acetamin ophen 5 mg-325 mg tablet TAKE 1 TABLET BY MOUTH 4 TIMES A DAY FOR 7 DAYS 11/26 completed Not Available Not Available Not Available hydromorp sera 2 mg tablet TAKE 1 ORAL FOUR TIMES A DAY FOR 7 DAYS 11/26 completed Not Available Not Available Not Available levothyro xine 50 mcg tablet TAKE 1 TABLET ORALLY DAILY active Not Available Not Available No t Available nortripty line 10 mg capsule 11/26 completed Medicati on ID: [id number] D uration Value: 30 Brand Name: nortript yline Se nd Method: E-Prescr ibed Sub s Allowed: subs OK Medic ationGen ericName : nortript yline Not Available Not Available Not Available cyanocoba gladys (vit B-12) 1,000 mcg/mL injection solution 1000 MCG INTRAMUS CULARLY EVERY 4 WEEKS active Not Available Not Available No t Available mirtazapi ne 30 mg tablet 11/26 completed Medicati on ID: [id number] D uration Value: 90 Brand Name: mirtazap ine Send Method: E-Prescr ibed Sub s Allowed: subs OK Medic ationGen ericName : mirtazap ine Not Available Not Available Not Available lidocaine 5 % topical patch 11/26 completed Medicati on ID: [id number] Dur ation Value: 30 Brand Name: lidocain e Send Method: E-Prescr ibed Sub s Allowed: subs OK Speci al Instruct ion: APPLY 1 PATCH TOPICALL Y BID Medi cationGe nericNam e: lidocain e Not Available Not Available Not Available gabapenti n 300 mg capsule 11/26 completed Medicati on ID: [id number] D uration Value: 10 Brand Name: gabapent in Send Method: E-Prescr ibed Sub s Allowed: subs OK Speci al Instruct ion: TK 1 C PO TID QHS FOR 10 DAYS Med icationG enericNa me: gabapent in Not Available Not Available Not Available sertralin e 25 mg tablet 25 MG ORALLY DAILY 11/26 completed Not Available Not Available Not Available ammonium lactate 12 % topical cream PLEASE SEE ATTACHED FOR DETAILED DIRECTIO NS 11/26 completed Not Available Not Available Not Available gabapenti n 100 mg capsule 200 MG (2 X 100 MG) ORALLY 3 TIMES A DAY active Not Available Not Available No t Available metoprolo l succinate ER 25 mg tablet,ex tended release 24 hr TAKE 2 TABLETS BY MOUTH ONCE DAILY 11/26 completed Not Available Not Available Not Available BD Tuberculi n Syringe 1 mL 25 gauge x 5/8 USE FOR MONTHLY INJECTIO NS active Not Available Not Available No t Available budesonid e DR - ER 3 mg capsule,d elayed,ex tended release 11/26 completed Medicati on ID: [id number] D uration Value: 30 Brand Name: budesoni [...] t Available ropinirol e 5 mg tablet 11/26 completed Medicati on ID: [id number] D uration Value: 90 Brand Name: pavan abernathy Send Method: E-Prescr ibed Sub s Allowed: subs OK Speci al Instruct ion: TK 1 T [facility]D [facility] pavan le Not Available Not Available Not Available morphine 15 mg immediate release tablet TAKE 1/2 TABLET BY MOUTH FOUR TIMES A DAY NEEDED FOR PAIN 11/26 completed Not Available Not Available Not Available esomepraz ole magnesium 20 mg capsule,d elayed release 2017 active Medicati on ID: [id number] D uration Value: 90 Brand Name: esomecyndee menjivar Send Method: E-Prescr ibed Sub s Allowed: subs OK [facility] eric[facility] : esomepra zole vikkiu m Not Available Not Available Not Available oxycodone 5 mg tablet TAKE 1 ORAL FOUR TIMES A DAY FOR 7 DAYS 11/26 completed Not Available Not Available Not Available olmesarta n 5 mg tablet TAKE 1 TABLET BY MOUTH EVERY DAY 11/26 completed Not Available Not Available Not Available alprazola m ER 1 mg tablet,ex tended release 24 hr 07/08 completed Medicati on ID: [id number] Dur ation Value: 30 Reason: () Brand Name: alprazol am Send Method: E-Prescr ibed Sub s Allowed: subs OK Speci al Instruct ion: TK 1 T PO QD [facility] : alprazol am Not Available Not Available Not Available rosuvasta tin 5 mg tablet TAKE 1 TABLET BY MOUTH DAILY active Not Available Not Available No t Available duloxetin e 20 mg capsule,d elayed release 20 MG ORALLY 2 TIMES A DAY active Not Available Not Available No t Available chlorhexi dine gluconate 0.12 % mouthwash 11/26 completed Medicati on ID: [id number] D uration Value: 28 Brand Name: chlorhex idine gluconat e Send Method: E-Prescr ibed Sub s Allowed: subs OK Medic ationGen ericName : chlorhex idine gluconat e Not Available Not Available Not Available Eliquis 5 mg tablet TAKE 1 TABLET BY MOUTH TWICE A DAY active Not Available Not Available No t Available naloxone 4 mg/actuat ion nasal spray SPRAY 4 ML NASAL EVERY DAY NEEDED SIGNS OF OPIOD OVERDOSE 11/26 completed Not Available Not Available Not Available Vitals Date Recorded Body height Body mass index (BMI) Body weight Provider Name and Address Organization Details Last Updated DateTime 04/27/2024 152.4 cm 19.7 kg/m2 15737.83 g Marisol Milton [facility] 04/27/2024 10:55:46 Date Recorded Body height Body mass index (BMI) Body weight Provider Name and Address Organization Details Last Updated DateTime 11/26/2024 152.4 cm 20.5 kg/m2 31170.2 g Bea Roy [facility] 11/26/2024 11:28:38 Date Recorded Body height Body mass index (BMI) Body weight Provider Name and Address Organization Details Last Updated DateTime 12/29/2023 152.4 cm 22.5 kg/m2 19686.12 g Anusha Bunch [facility] 12/29/2023 13:25:38 Social History None recorded. Functional Status None recorded. Mental Status None recorded. Family History Nothing Reported. Medical History No medical history recorded. Gynecological HistoryNo gynecological history recorded. Obstetrics History GPAL:G 0 P 0 0 0 0 Past Encounters Encounter ID Performer Location Encounter Start Date Encounter Closed Date Diagnosis/Indication Diagnosis SNOMED-CT Code Diagnosis ICD10 Code Diagnosis IMO Codes Diagnosis Note [id number] JOSE MOSHER PA-C [facility] [address] [address] 12/29/2023 13:17:17 12/29/2023 13:45:24 Impacted cerumen of bilateral ears 2468568205 468243 H61.23 [id number] SHANKAR RASMUSSEN PA-C [facility] [address] [address] 04/27/2024 10:43:24 04/27/2024 11:02:42 Impacted cerumen of bilateral ears 0574011140 687846 H61.23 [id number] SHANKAR RASMUSSEN PA-C [facility] [address] [place] [address] 11/26/2024 11:13:25 11/26/2024 11:53:53 Impacted cerumen of bilateral ears 4307652159 126421 H61.23 Health Concerns Section Related Observation LastModified by Organization Detai ls LastModified Time None Recorded Concern Status LastModified by Organization Details LastModified Time None Recorded Advance Directives Directive None Recorded Payers Insurance Date Sequence Insurance Name Policy Number Policy Oscar Covered Member ID Oscar Member ID Guarantor Name 11/26/2024 2 [facility] IN[facility]MN[facility] (MEDICARE SUPPLEMENT) [id number] Shayan Leslie [id number] Lynda Leslie 11/26/2024 1 MEDICARE B-[place]: [facility] [employer] Lynda Leslie [id number] Lynda Leslie Notes Date Note Type Note Provider Name and Address Organization Details Recorded Time 12/29/2023 text/html ROS as noted in the [facility] 78-year-old female presents for evaluation of the ears. Denies change in hearing, otalgia, and otorrhea. No Q-tip use. RAQUEL LAWRENCE MD [address] [place] [address], [address], [facility] - [facility] 12/29/2023 17:02:11 04/27/2024 text/html ROS as noted in the [facility] 79-year-old female presents for cerumen removal. No acute issues since her last visit. ANA LO MD [address] [place] [address],[address], [address], [facility] - [facility] 04/28/2024 07:28:04 11/26/2024 text/html ROS as noted in the [facility] 79-year-old female presents for cerumen removal. No acute issues since her last visit. RAQUEL LAWRENCE MD [address] [place] [address],[address], [address], [facility] - [facility] 11/26/2024 16:49:22 OBGyn Episode No OBEpisode recorded.
--- OUTSIDE RECORDS SUMMARY | 2024-12-24 10:23 | XMS_ITS | Patient Health Record ---
[facility] Address [address] [place] [address] Care Team Providers Care Tool Machinist Name Role Phone Jia Parmar MD Primary Care Provider UnavailMelina Acharya Unavailable [phone] Allergies Allergen (clinical drug ingredient) Drug/Non Drug [...] Information temporarily unavailable Latex Unknown Allergy Active Reason For Referral No Information Medications Medication SIG (Take, Route, Frequency, Duration) Notes Start Date End Date Status Synthroid 50 MCG 1 tablet Orally Once a day Active Lunesta 3 MG 1 tablet immediately before bedtime Orally Once a day Not-Taking Esomeprazole Magnesium Not-Taking oxyCODONE HCl 5 MG 0.5 tablet as needed Orally every 6 hrs; Duration: 5 days 08/08/2022 Not-Taking Fish Oil 1000 mg 1 capsule Orally Once a day Not-Taking Aerochamber Plus Not -Taking Xalatan 0.005 % 1 drop into affected [...] multi-density innersoles for 1 year Dx: Active Diclofenac gel, used with PSK cream up to 4 times a day Not-Taking hydrALAZINE HCl Not- Taking Budesonide 3 MG as directed Orally Once a day Not-Taking Cyanocobalamin B12 injection 1 X per M Not-Taking Vitamin D3 Not-Takin g Benzonatate 200 MG 1 capsule Orally Three times a day Not-Taking Nortriptyline HCl No t-Taking Extra Depth Orthopedic Shoes (1 Pair) with Customized Heat Molded Multidensity Innersoles (3 Pair) as directed Dx: NIDDM/Polyneuropath y (E11.42), Hammertoe Foot Deformity (M20.41,M20.42), Preulcerative Skin Lesion(s) (L85.1 07/13/2018 Not-Taking rOPINIRole HCl FOR RLS Not-T aking Xarelto Not-Taking Extra Depth Diabetic Shoes with 3 Pair Custom heat-molded multi-density innersoles for 1 year Dx: 10/23/2016 Not-Taking Gabapentin 600 1 TABLET THREE TIMES A DAY ORALLY 30 DAY(S); Duration: 30 Not-Taking NexIUM 40 MG 1 capsule Orally Once a day Not-Taking Budesonide ER 20 mg Not-Taking Gabapentin 600 MG TAKE 1 TABLET BY MOUTH THREE TIMES DAILY; Duration: 30 Not-Taking Gabapentin 300 MG 1 capsule before bedtime Orally Three times a day; Duration: 30 days Not-Taking traMADol HCl 50 MG 1 tablet as needed Orally every 6 hrs; Duration: 10 days PRN 03/10/2017 Not-Taking Skelaxin 800 MG 1 tablet Orally Three times a day PRN Not-Taking Lexapro 5 MG 1 tablet Orally Once a day Not-Taking Spironolactone 25 MG 1 tablet Orally Once a day Active ALPRAZolam XR 0.5 MG 1 tablet Orally twice a day Not-Taking Qvar 40 MCG/ACT 1 puff Inhalation Twice a day Not-Taking Timolol Maleate 0.5 % Ophthalmic Not-Taking Physical Therapy 3-4x per week for 3-4 weeks Not-Taking traMADol HCl Not-Reji ing Nortriptyline HCl 10 MG TK 1 C PO QD HS UTD Orally Not-Taking Ultram 50 MG 1 tablet as needed Orally every 6 hrs; Duration: 5 days 02/19/2017 Not-Taking Prilosec Active Lidocaine 5 % 1 patch to intact skin remove after 12 hours Externally Once a day Not-Taking Multivitamin Adults 50+ Orally Active Levalbuterol Tartrate Not-Taking Gabapentin 300 MG 1 capsule Orally Three times a day; Duration: 30 day(s) Not-Taking Xopenex Not-Taking Physical Therapy . . . 2-3x/week; Duration: 3-4 weeks 07/08/2016 Not-Taking Physical Therapy . . . 2-3x/week; Duration: 3-4 weeks 04/10/2016 Not-Taking Colchicine 0.6 MG 1 tablet Orally Once a day; Duration: 30 day(s) 05/02/2016 Not-Taking Physical Therapy . . . 2-3x/week; Duration: 3-4 weeks Not-Taking Antibiotic Active amLODIPine Besylate 5 MG 1 tablet Orally bid Active Caltrate 600+D 600-800 MG-UNIT 1 tablet Orally Twice a day Active Ammonium Molybdate A ctive Crestor 5 MG 1 tablet Orally Once a day Active Clindamycin HCl 300 MG 1 capsule Orally every 6 hrs; Duration: 5 days PRN for DENTIST 06/10/2016 Active Gabapentin 300 1 CAPSULE BEFORE BEDTIME THREE TIMES A DAY ORALLY 30 DAYS; Duration: 30 Active Dramamine Not-Taking eliquis Active Immunizations Vaccine Route Administration Date Status Comme nts Influenza Unknown 12/13/2021 Administered Influenza Unknown 11/01/2022 Administered Influenza Unknown 12/02/2023 Administered Influenza Unknown 12/02/2024 Administered Pneumococcal Unknown 11/02/2019 Administered COVID-19 Pfizer [...] Problem Status W/U Status Risk Notes Problem Information temporarily unavailable Type 2 diabetes mellitus with diabetic polyneuropathy (E11.42) Active confirmed Vital Signs Blood pressure diastolic 65 mm Hg 12/23/2024 Height 5 ft 0 in in 12/23/2024 Blood pressure systolic 128 mm Hg 12/23/2024 Weight 111 lbs 12/23/2024 BMI 21.68 kg/m2 12/23/2024 Procedures Procedure Date Ordered Date Performed Result Body Sit e 77469-OTDBAGN NAIL, 6 OR MORE 02/18/2024 N/A 62291-INRO SKIN LESIONS, OVER 4 02/18/2024 N/A 50207-XYLOBWI NAIL, 6 OR MORE 06/24/2024 N/A 99401-FEJA SKIN LESIONS, OVER 4 06/24/2024 N/A 37223-WLEHNWX NAIL, 6 OR MORE 09/22/2024 N/A 24031-BCQM SKIN LESIONS, OVER 4 09/22/2024 N/A 97190-FECXGDM NAIL, 6 OR MORE 12/23/2024 N/A 64469-NISN SKIN LESIONS, OVER 4 12/23/2024 N/A Encounters Encounter Location Date Provider Diagnosis [address] [address] 02/18/2024 Melina Booth Type 2 diabetes mellitus with diabetic polyneuropathy E11.42 ; Tinea unguium B35.1 and Xerosis of skin L85.[address] [address] 06/24/2024 Melina Booth Type 2 diabetes mellitus with diabetic polyneuropathy E11.42 ; Tinea unguium B35.1 ; Other hammer toe(s) (acquired), right foot M20.41 and Other hammer toe(s) (acquired), left foot M20.[address] [address] 09/22/2024 Melina Booth Type 2 diabetes mellitus with diabetic polyneuropathy E11.42 and Tinea unguium B35.[address] [address] 12/23/2024 Melina Booth Type 2 diabetes mellitus with diabetic polyneuropathy E11.42 and Tinea unguium B35.1 [facility] [address] [place] [address] 06/24/2024 Melina Booth Assessments Encounter Date Diagnosis [...] E11.42) 09/22/2024 Tinea unguium (ICD-10 - B35.1) 12/23/2024 Type 2 diabetes mellitus with diabetic polyneuropathy (ICD-10 - E11.42) 12/23/2024 Tinea unguium (ICD-10 - B35.1) 02/18/2024 Xerosis of skin (ICD-10 - L85.3) 06/24/2024 Other hammer toe(s) (acquired), right foot (ICD-10 - M20.41) Patient Educated with: DIABETIC FOOT CARE INSTRUCTIONS. pdf (DIABETIC FOOT CARE INSTRUCTIONS. pdf) 06/24/2024 Other hammer toe(s) (acquired), left foot (ICD-10 - M20.42) 09/22/2024 Other Patient Educated with: DIABETIC FOOT CARE INSTRUCTIONS. pdf (DIABETIC FOOT CARE INSTRUCTIONS. pdf) 12/23/2024 Other Patient Educated with: DIABETIC FOOT [...] X ray : Foot, right 3V 08/04/2017 41632-XXOQDHX NAIL, 6 OR MORE 10/27/2017 16188-FIXCOXD NAIL, 6 OR MORE 08/04/2017 66841-ICWCZNT NAIL, 6 OR MORE 05/12/2017 27086-KHBTFRE NAIL, 6 OR MORE 12/23/2024 46521-EZXCFSJ NAIL, 6 OR MORE 06/24/2024 33649-BVBLENH NAIL, 6 OR MORE 09/22/2024 00546-TATUBNG NAIL, 6 OR MORE 02/18/2024 14432-EWWBREW NAIL, 6 OR MORE 2018 42211-EMWXJPB NAIL, 6 OR MORE 03/10/2017 16663-NUSXCOI NAIL, 6 OR MORE 01/06/2017 14660-XTPCHBQ NAIL, 6 OR MORE 10/23/2016 28398-VQHSSEZ NAIL, 6 OR MORE 07/25/2016 04074-BPTYHFO NAIL, 6 OR MORE 05/10/2016 81210-ZPLFXCS NAIL, 6 OR MORE 02/14/2016 40566-IQOESRL NAIL, 6 OR MORE 11/20/2015 36765-JTGZHKE NAIL, 6 OR MORE 07/05/2015 47526-Wudsccgi Plate 07/27/2015 60573-Vfxqugau Plate 05/29/2016 51821-Ftlykphm Plate 06/10/2016 71506- Debride <25 sq cm 06/10/2016 04028- Debride <25 sq cm 09/25/2016 01741- Debride <25 sq cm 10/23/2016 48597- Debride <25 sq cm 08/14/2015 29385-MRBR SKIN LESIONS, OVER 4 07/05/19 16 99293-WVPR SKIN LESIONS, OVER 4 11/20/19 16 97028-XBAB SKIN LESIONS, OVER 4 02/14/20 16 10921-DKSZ SKIN LESIONS, OVER 4 05/11/19 17 06211-KBGN SKIN LESIONS, OVER 4 10/24/19 08525-ZXXI SKIN LESIONS, OVER 4 01/07/20 60450-OEFL SKIN LESIONS, OVER 4 05/13/19 52778-ENUB SKIN LESIONS, OVER 4 03/10/19 81092-SEOK SKIN LESIONS, OVER 4 02/13/20 98458-UGBF SKIN LESIONS, OVER 4 05/15/19 39313-SRSA SKIN LESIONS, OVER 4 02/18/20 44152-VVCX SKIN LESIONS, OVER 4 09/23/19 50285-HYUH SKIN LESIONS, OVER 4 06/25/19 88438-GOJY SKIN LESIONS, OVER 4 12/24/19 81155-JWWN SKIN LESIONS, OVER 4 08/05/19 71835-YWIL SKIN LESIONS, OVER 4 01/13/20 64139-DOMD SKIN LESIONS, OVER 4 10/28/19 18 74325-DBLD SKIN LESIONS, OVER 4 04/13/19 12510-DGZA SKIN LESIONS, OVER 4 07/14/19 92842-MAAS SKIN LESIONS, OVER 4 10/13/19 99441-TXUD SKIN LESIONS, OVER 4 01/12/20 23294-HSGO SKIN LESIONS, OVER 4 04/12/19 12039-LGGO SKIN LESIONS, OVER 4 07/14/19 67335-LRHF SKIN LESIONS, OVER 4 10/18/19 47685-ZUFW SKIN LESIONS, OVER 4 01/17/20 74567-UPKA SKIN LESIONS, OVER 4 04/24/19 55231-WUWE SKIN LESIONS, OVER 4 07/25/19 99483-RJSJ SKIN LESIONS, OVER 4 11/21/19 26035-WKRD SKIN LESIONS, 2 TO 4 07/26/19 17 53228, F6373-NNLEC/INJECT, JOINT/BURSA 0 04/13/2018 23750, J0702- Neuroma/Injection 11/20/19 16 96070-Ajubdiurl, Toes 05/10/2016 05400-Zoyyfioni, Toes 05/15/2016 03190-Itfkocabz, Toes 03/12/2023 Next Appt Details Provider Name:Melina Muñoz trenton, 03/30/2025 02:45:00 PM, [address] [place] [address], [address], Insurance Providers Payer Name Payer Address Payer Phone Subscriber Number Group Number Insured Name Patient Relationship to Insured Coverage Start Date Coverage End Date Medicare National Govt [facility] [address] [place] [address] [phone] [id number] Lynda Leslie Self - patient is the insured Stalin (N-1-1) [address] [place] [address] [phone] [id number] Shayan Leslie Spouse - patient is [...] Back surgery 10/20/23 Hospitalization History Reason Date(Month/Year) [facility]- pancolitis 02/13/19 [facility] ER- Fall - police told h er to get knee checked out- couldn't walk 12/03/[address] [place] [facility] 5 days after sx ba ck blood clot / c.diff 03/2020 [facility] X 3 Days, Pt sstates she fell, dx: c oncusion 05/18/2017
--- OUTSIDE RECORDS SUMMARY | 2024-12-24 10:23 | XMS_ITS | Clinical Summary ---
Author Organization [facility] Address [address] [place] [address] Phone Care Team Providers Care Creche Attendant Name Role Phone Jia Parmar MD Primary Care Provider [phone] Allergies Active Allergy Reactions Criticality Noted Date [...] Emergency [facility] Emergency [address] [place] [address] Fdee Ontiveros MD Kokkinos, Erika, MD Landry, Jonathan [...] reflex microscopic (10/09/2024 2:18 PM EDT) Specific [place] Urine 1.013 1.003 - 1.030 LAB URINALYSIS - AUTOMATED METHOD 10/09/2024 2:53 PM EDT [facility] pH, Urine 6.0 5.0 - 8.0 pH LAB URINALYSIS - AUTOMATED METHOD 10/09/2024 2:53 PM EDT [facility] Leukocytes, Urine Negative Negative LAB URINALYSIS - AUTOMATED METHOD 10/09/2024 2:53 PM EDT [facility] Nitrite, Urine Negative Negative LAB URINALYSIS - AUTOMATED METHOD 10/09/2024 2:53 PM EDT [facility] Protein, Urine Negative <=Trace mg/dL LAB URINALYSIS - AUTOMATED METHOD 10/09/2024 2:53 PM EDT [facility] Glucose, Urine Negative Negative mg/dL LAB URINALYSIS - AUTOMATED METHOD 10/09/2024 2:53 PM EDT [facility] Ketones, Urine Negative Negative mg/dL LAB URINALYSIS - AUTOMATED METHOD 10/09/2024 2:53 PM EDT [facility] Urobilinogen, Urine 0.2 0.2 - 1.0 mg/dL LAB URINALYSIS - AUTOMATED METHOD 10/09/2024 2:53 PM EDT [facility] Bilirubin, Urine Negative Negative LAB URINALYSIS - AUTOMATED METHOD 10/09/2024 2:53 PM EDT [facility] Blood, Urine Negative Negative LAB URINALYSIS - AUTOMATED METHOD 10/09/2024 2:53 PM T [facility] Urine Urine specimen obtained by clean catch procedure / Unknown Non-blood Collection / Unknown 10/09/2024 2:18 PM EDT 10/09/2024 2:26 PM EDT us Fede Ontiveros MD LAB URINE ORDERABLES Final R esult [facility] [address] [place] [address], * (ABNORMAL) Drug abuse screen 8a panel, urine (10/09/2024 2:18 PM EDT) Amphetamine Screen, Ur Negative Negative LAB CHEMISTRY METHOD 08/09/202 5 3:33 PM EDT [facility] Comment:Certain OTC medicati ons containing ephedrine, phenylephrine, pseudoephedrine and phenylpropanolamine can cause false positive results. Barbiturate Screen, Ur Negative Negative LAB CHEMISTRY METHOD 5 3:33 PM EDT [facility] Benzodiazepine Screen, Ur Negative Negative LAB CHEMISTRY METHOD 5 3:33 PM EDT [facility] Cocaine Screen, Ur Negative Negative LAB CHEMISTRY METHOD 5 3:33 PM EDT [facility] Opiate Screen, Ur Positive(A ) Negative [facility] 5 3[facility] Cannabinoid (THC) Screen, Ur Negative Negative LAB CHEMISTRY METHOD 5 3:33 PM T [facility] Comment:Specimens from patie nts taking pantoprazole sodium (Protonix) have been shown to produce false positive results. Oxycodone Screen, Ur Negative Negative LAB CHEMISTRY METHOD 5 3:33 PM EDT [facility] Fentanyl, Ur Negative Negative LAB CHEMISTRY METHOD 5 3:33 PM [facility] Urine Urine specimen obtained by clean catch procedure / Unknown Non-blood Collection / Unknown 10/09/2024 2:18 PM EDT 10/09/2024 2:27 PM EDT Narrative [facility] - 10/09/2024 3:33 PM EDT [...] MD LAB URINE ORDERABLES Final R esult [facility] [address] [place] [address], [place] [phone] * Troponin I high sensitivity (10/09/2024 12:54 PM EDT) Only the most recent of2 resultswithin the time period is included. High Sensitivity Troponin I 9 <=54 ng/L LAB CHEMISTRY METHOD 10/09/2024 1:36 PM EDT [facility] Blood Venous blood specimen / Unknown Venipuncture / Unknown 10/09/2024 12:54 PM EDT 10/09/2024 1:00 PM EDT Narrative [facility] - 10/09/2024 1:36 PM EDT High levels of biotin in samples may falsely decrease hsTroponin values. Use caution when interpreting hsTroponin results in patients taking biotin who exhibit renal impairment (eGFR <60) or in patients taking more than 20 mg/day of biotin. us Fede Ontiveros MD LAB BLOOD ORDERABLES Final R esult Performing Organization Address [facility] Co de Phone Number [facility] [address] [place] [address], [place] [phone] * CT Head wo Contrast (10/09/2024 12:05 [...] Signed Date: 10/09/2024 12:20 ET Workstation ID: [id number] Transcribed By: Self Edit Transcribed Date: 10/09/2024 [...] Signed Date: 10/09/2024 12:20 ET Workstation ID: [id number] Transcribed By: Self Edit Transcribed Date: 10/09/2024 12:17 ET us Fede Ontiveros MD IMG CT PROCEDURES Final Resu lt * (ABNORMAL) CBC auto differential (10/09/2024 11:40 AM EDT) WBC 11.0(H) 4.8 - 10.8 K/mcL LAB HEMETOLOGY METHOD 10/09/2024 11:53 AM [facility] RBC 3.70(L) 3.80 - 4.80 M/mcL LAB HEMETOLOGY METHOD 10/09/2024 11:53 AM [facility] Hemoglobin 11.0(L) 11.5 - 16.0 g/dL LAB HEMETOLOGY METHOD 10/09/2024 11:53 AM [facility] Hematocrit 33.3(L) 35.0 - 47.0 % LAB HEMETOLOGY METHOD 10/09/2024 11:53 AM [facility] MCV 90.0 79.0 - 98.0 FL LAB HEMETOLOGY METHOD 10/09/2024 11:53 AM [facility] MCH 29.7 27.0 - 32.0 pcg LAB HEMETOLOGY METHOD 10/09/2024 11:53 AM [facility] MCHC 33.0 32.0 - 37.0 g/dL LAB HEMETOLOGY METHOD 10/09/2024 11:53 AM [facility] RDW 12.5 11.0 - 15.0 % LAB HEMETOLOGY METHOD 10/09/2024 11:53 AM [facility] Platelets 229 130 - 400 K/mcL LAB HEMETOLOGY METHOD 10/09/2024 11:53 AM [facility] MPV 10.8 7.0 - 11.0 FL LAB HEMETOLOGY METHOD 10/09/2024 11:53 AM [facility] NRBC 0.0 <1.0 % LAB HEMETOLOGY METHOD 10/09/2024 11:53 AM [facility] NRBC Absolute 0.00 <0.10 K/mcL LAB HEMETOLOGY METHOD 10/09/2024 11:53 AM [facility] Neutrophils Relative 75.1 % LAB HEMETOLOGY METHOD 10/09/2024 11:53 AM [facility] Lymphocytes Relative 17.1 % LAB HEMETOLOGY METHOD 10/09/2024 11:53 AM [facility] Monocytes Relative 5.4 % LAB HEMETOLOGY METHOD 10/09/2024 11:53 AM [facility] Eosinophils Relative 1.4 % LAB HEMETOLOGY METHOD 10/09/2024 11:53 AM [facility] Basophils Relative 0.5 % LAB HEMETOLOGY METHOD 10/09/2024 11:53 AM [facility] Immature Granulocytes Relative 0.5 % LAB HEMETOLOGY METHOD 10/09/2024 11:53 AM [facility] Neutrophils Absolute 8.23(H) 1.50 - 7.00 K/mcL LAB HEMETOLOGY METHOD 10/09/2024 11:53 AM [facility] Lymphocytes Absolute 1.87 1.00 - 5.00 K/mcL LAB HEMETOLOGY METHOD 10/09/2024 11:53 AM [facility] Monocytes Absolute 0.59 0.20 - 1.00 K/mcL LAB HEMETOLOGY METHOD 10/09/2024 11:53 AM EDT [facility] Eosinophils Absolute 0.15 0.00 - 0.50 K/mcL LAB HEMETOLOGY METHOD 10/09/2024 11:53 AM EDT [facility] Basophils Absolute 0.06 0.00 - 0.20 K/[facility] LAB HEMETOLOGY METHOD 10/09/2024 11:53 AM EDT [facility] Immature Granulocytes Absolute 0.05(H) 0.00 - 0.03 K/[facility] LAB HEMETOLOGY METHOD 10/09/2024 11:53 AM EDT [facility] Blood Venous blood specimen / Unknown Venipuncture / Unknown 10/09/2024 11:40 AM EDT 10/09/2024 11:46 AM EDT Fede Ontiveros MD LAB BLOOD ORDERABLES Final R esult Performing Organization Address City/[facility]/ZIP Co de Phone Number [facility] [address] [place] [address], * (ABNORMAL) Thyroid Stimulating Hormone (TSH) (10/09/2024 11:40 AM EDT) TSH 0.30(L) 0.40 - 4.00 mcIU/mL LAB CHEMISTRY METHOD 10/09/2024 12:47 PM EDT [facility] Blood Venous blood specimen / Unknown Venipuncture / Unknown 10/09/2024 11:40 AM EDT 10/09/2024 11:47 AM EDT Fede Ontiveros MD LAB BLOOD ORDERABLES Final R esult Performing Organization Address City/[facility]/ZIP Co de Phone Number [facility] [address] [place] [address], [place] [phone] * Phosphorus (10/09/2024 11:40 AM EDT) Phosphorus 4.2 2.5 - 4.5 mg/dL LAB CHEMISTRY METHOD 10/09/2024 12:16 PM EDT [facility] Blood Venous blood specimen / Unknown Venipuncture / Unknown 10/09/2024 11:40 AM EDT 10/09/2024 11:47 AM EDT us Fede Ontiveros MD LAB BLOOD ORDERABLES Final R esult [facility] [address] [place] [address], [place] [phone] * Magnesium (10/09/2024 11:40 AM EDT) [facility] Magnesium 2.0 1.9 - 2.6 mg/dL LAB CHEMISTRY METHOD 10/09/2024 12:16 PM EDT [facility] Blood Venous blood specimen / Unknown Venipuncture / Unknown 10/09/2024 11:40 AM EDT 10/09/2024 11:47 AM EDT us Fede Ontiveros MD LAB BLOOD ORDERABLES Final R esult [facility] [address] [place] [address], [place] [phone] * Creatine kinase (10/09/2024 11:40 AM EDT) Total CK 103 22 - 269 unit/L LAB CHEMISTRY METHOD 10/09/2024 12:16 PM EDT [facility] Blood Venous blood specimen / Unknown Venipuncture / Unknown 10/09/2024 11:40 AM EDT 10/09/2024 11:47 AM EDT us Fede Ontiveros MD LAB BLOOD ORDERABLES Final R esult [facility] [address] [place] [address], * (ABNORMAL) Comprehensive Metabolic Panel (CMP) (10/09/2024 11:40 AM EDT) Sodium 139 133 - 145 mmol/L LAB CHEMISTRY METHOD 10/09/2024 12:16 PM [facility] Potassium 4.4 3.5 - 5.5 mmol/L LAB CHEMISTRY METHOD 10/09/2024 12:16 PM [facility] Chloride 109 96 - 110 mmol/L LAB CHEMISTRY METHOD 10/09/2024 12:16 PM [facility] CO2 26 21 - 32 mmol/L LAB CHEMISTRY METHOD 10/09/2024 12:16 PM [facility] Anion Gap 4 3 - 11 LAB CHEMISTRY METHOD 10/09/2024 12:16 PM [facility] Glucose 129(H) 70 - 100 mg/dL LAB CHEMISTRY METHOD 10/09/2024 12:16 PM [facility] BUN 31(H) 5 - 25 mg/dL LAB CHEMISTRY METHOD 10/09/2024 12:16 PM [facility] Creatinine 1.22(H) 0.50 - 1.10 mg/dL LAB CHEMISTRY METHOD 10/09/2024 12:16 PM [facility] eGFR 45(L) >=60 mL/min/1. 73m2 LAB CHEMISTRY METHOD 10/09/2024 12:16 PM [facility] Comment:Calculation based on the Chronic Kidney Disease Epidemiology Collaboration (CKD-EPI) equation refit without adjustment for race. BUN/Creatinine Ratio 25.4 LAB CHEMISTRY METHOD 10/09/2024 12:16 PM [facility] Calcium 9.2 8.5 - 10.5 mg/dL LAB CHEMISTRY METHOD 10/09/2024 12:16 PM EDT [facility] AST (SGOT) 31 10 - 42 unit/L LAB CHEMISTRY METHOD 10/09/2024 12:16 PM EDT [facility] ALT (SGPT) 41 10 - 60 unit/L LAB CHEMISTRY METHOD 10/09/2024 12:16 PM EDT [facility] Alkaline Phosphatase 65 42 - 121 unit/L LAB CHEMISTRY METHOD 10/09/2024 12:16 PM EDT [facility] Total Protein 6.2 6.0 - 8.0 g/dL LAB CHEMISTRY METHOD 10/09/2024 12:16 PM EDT [facility] Albumin 3.6 3.2 - 5.0 g/dL LAB CHEMISTRY METHOD 10/09/2024 12:16 PM EDT [facility] Total Bilirubin 0.5 0.0 - 1.4 mg/dL LAB CHEMISTRY METHOD 10/09/2024 12:16 PM EDT [facility] Blood Venous blood specimen / Unknown Venipuncture / Unknown 10/09/2024 11:40 AM EDT 10/09/2024 11:47 AM EDT Fede Ontiveros MD LAB BLOOD ORDERABLES Final R esult [facility] [address] [place] [address], * 12-Lead ECG (10/09/2024 11:31 AM EDT) Ventricular Rate ECG 68 BPM GEMUSE Atrial Rate 68 BPM GEMUSE P-R Interval 168 ms GEMUSE QRS Duration 84 ms GEMUSE Q-T Interval 438 ms GEMUSE QTc 465 ms GEMUSE P Wave Napanoch -11 degrees GEMUSE R [place] -13 degrees GEMUSE T [place] 19 degrees GEMUSE ECG Interpretation Normal sinus [...] AM EDT Narrative 11/19/2022 11:36 AM EDT [facility] Diagnostic Imaging Department [address] [place], [place] [id number] Patient: VILLAHEBER /Age/Sex: 1945 - 77 - F Unit#: [id number] Location/Status: [facility] Mnemonic[facility] Ordering Physician: JOSE SAMUELS MD Leticia Dexa [...] probability of hip fracture of 4.7%. Code 81706 Dictating Physician: CLIVE BREWER MD Electronically Signed by: CLIVE BREWER MD Dic Date/Time: 11/19/22 1133 Sign date/Time: 11/19/22 1136 Procedure Note Clive Brewer MD - 04/08/2023 [facility] Diagnostic Imaging Department [address] [place] [address] Patient: HEBER LESLIE Apoorva /Age/Sex: 1945 - 77 - F Unit#: [id number] Location/Status: SPDIMAM/REG CLI Mnemonic[facility] Ordering Physician: JOSE SAMUELS MD Leticia Dexa [...] density of the femurs bilaterally is 0.799 gm/gp6hvtdc is 79% of that of young normals [...] probability of hip fracture of 4.7%. 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
[2024-12-24 14:44] VITALS: BP 140/85
--- OUTSIDE RECORDS SUMMARY | 2025-02-07 20:00 | XMS_ITS | Clinical Summary ---
Author Organization Unknown Care Team Providers Care On Call Pharmacy Technician Name Role Phone JASS MONTANEZ, ANN Unavailable Unavailable JUDE CORBETT, MARSHA Unavailable Unavailable Payers Payer Name Policy Type Policy Number Effective Date Expira tion Date MEDICARE - [place] - PDGM [id number] Problems Condition Name Condition Details Condition Category [...] OF PULMONARY EMBOLISM Active 03-03 00:00: 00 [facility] (CURRENT) USE OF ANTICOAGULAN TS Active 03-03 [...] capsule,del ayed release 10-06 00:00: 00 Yes [id number] 1 capsule 2 TIMES DAILY 1 capsule 2 TIMES DAILY (route: oral) Med Classific ation: Gastroint estinal Therapy Agents amlodipine 5 mg tablet 10-05 00:00: 00 10-15 23:59 :00 No [id number] 1 tablet DAILY 1 tablet DAILY (route: oral) Med Classific ation: Cardiovas cular Therapy Agents levothyroxi ne 50 mcg tablet 10-05 00:00: 00 Yes [id number] Per instruc tions DAILY Per instructio ns DAILY (route: oral) Med Classific ation: Endocrine trazodone 50 mg tablet 10-05 00:00: 00 Yes [id number] Per instruc tions FOR BEDTIME Per instructio ns FOR BEDTIME (route: oral) Med Classific ation: Central Nervous System Agents vancomycin 125 mg capsule 09-26 00:00: 00 Yes [id number] Per instruc tions 2 (TWO) TIMES A DAY Per instructio ns 2 (TWO) TIMES A DAY (route: oral) Med Classific ation: Anti-Infe ctive Agents duloxetine 20 mg capsule,del ayed release 09-10 00:00: 00 Yes [id number] Per instruc tions 2 TIMES A DAY Per instructio ns 2 TIMES A DAY (route: oral) Med Classific ation: Central Nervous System Agents Eliquis 5 mg tablet 09-10 00:00: 00 Yes [id number] Per instruc tions TWICE A DAY Per instructio ns TWICE A DAY (route: oral) Med Classific ation: Hematolog ical Agents cefpodoxime 200 mg tablet 10-11 00:00: 00 10-16 23:59 :00 No [id number] 1 tablet DAILY 1 tablet DAILY (route: oral) Med Classific ation: Anti-Infe ctive Agents gabapentin 100 mg capsule 10-12 00:00: 00 Yes [id number] 1 capsule 2 TIMES DAILY 1 capsule 2 TIMES DAILY (route: oral) Med Classific ation: Central Nervous System Agents latanoprost 0.005 % eye drops 10-12 00:00: 00 Yes [id number] 1 drops BEDTIME 1 drops BEDTIME (route: ophthalmic (eye)) Med Classific ation: Ophthalmi c Agents metoprolol succinate ER 50 mg tablet,exte nded release 24 hr 10-12 00:00: 00 Yes [id number] 1 tablet 2 TIMES DAILY 1 tablet 2 TIMES DAILY (route: oral) Med Classific ation: Cardiovas cular Therapy Agents morphine 15 mg immediate release tablet 10-12 00:00: 00 10-28 23:59 :00 No [id number] 1 tablet NEEDED 1 tablet NEEDED (route: oral) Med Classific ation: Analgesic , Anti-infl ammatory or Antipyret ic rosuvastati n 5 mg tablet 10-12 00:00: 00 Yes [id number] 1 tablet BEDTIME 1 tablet BEDTIME (route: oral) Med Classific ation: Cardiovas cular Therapy Agents spironolact one 25 mg tablet 10-12 00:00: 00 11-24 23:59 :00 No [id number] 0.5 tablet DAILY 0.5 tablet DAILY (route: oral) Med Classific ation: Cardiovas cular Therapy Agents timolol 0.5 % eye drops 812 00:00: 00 Yes [id number] 1 drops DAILY 1 drops DAILY (route: ophthalmic (eye)) Med Classific ation: Ophthalmi c Agents amlodipine 5 mg tablet 814 00:00: 00 Yes [id number] 1 tablet 2 TIMES DAILY 1 tablet 2 TIMES DAILY (route: oral) Med Classific ation: Cardiovas cular Therapy Agents Dilaudid 2 mg tablet 10-28 00:00: 00 Yes [id number] 1 tablet EVERY 6 HOURS 1 tablet EVERY 6 HOURS (route: oral) Med Classific ation: Analgesic , Anti-infl ammatory or Antipyret ic hydralazine 10 mg tablet 11-30 00:00: 00 12-06 23:59 :00 No [id number] 1 tablet 2 TIMES DAILY 1 tablet 2 TIMES DAILY (route: oral) Med Classific ation: Cardiovas cular Therapy Agents spironolact one 25 mg tablet 11-24 00:00: 00 Yes [id number] 1 tablet DAILY 1 tablet DAILY (route: oral) Med Classific ation: Cardiovas cular Therapy Agents hydralazine 10 mg tablet 2024-03 011 00:00: 00 Yes [id number] 20 mg 2 TIMES DAILY 20 mg 2 TIMES DAILY (route: oral) Med Classific ation: Cardiovas cular Therapy Agents Immunizations Ordered Immunization Name Filled Immunization Name Date Status Comments Refusal Reason INFLUENZA, TIV (INACTIVATED) 2024-10-30 00:00:00 INFLUENZA, TIV (INACTIVATED) 2023-11-19 00:00:00 Vital Signs Vital Name Observation Time Observation Value Commen ts Temperature 2024-12-20 10:32:00.000 98.2 [degF] Temperature 2024-12-13 12:16:00.000 98 [degF] Pulse 2024-12-20 10:32:00.000 72 /min Pulse 2024-12-13 12:16:00.000 68 /min O2 Saturation (%) 2024-12-20 10:32:00.000 98 % O2 Saturation (%) 2024-12-13 12:16:00.000 97 % Respirations 2024-12-20 10:32:00.000 18 /min Respirations 2024-12-13 12:16:00.000 18 /min Systolic Blood Pressure 2024-12-20 10:32:00.000 155 mm [Hg] Systolic Blood Pressure 2024-12-13 12:16:00.000 148 mm [Hg] Diastolic Blood Pressure 2024-12-20 10:32:00.000 [...] MAINTAIN SITUATIONAL AWARENESS AND WILL NOTIFY CLINICAL COMMUNITY LIVING INSTRUCTOR AND PHYSICIAN/PROVIDER WITH ANY CHANGE IN CONDITION. [code = SKILLED NURSE TO PERFORM ENVIRONMENTAL SAFETY RISK ASSESSMENT AND FALL RISK ASSESSMENT AND PROVIDE INSTRUCTION TO IMPLEMENT ENVIRONMENTAL SAFETY AND FALL PREVENTION STRATEGIES THROUGHOUT THE CERTIFICATION PERIOD. SKILLED NURSE WILL MAINTAIN SITUATIONAL AWARENESS AND WILL NOTIFY CLINICAL COMMUNITY LIVING INSTRUCTOR AND PHYSICIAN/PROVIDER WITH ANY CHANGE IN CONDITION.] [...] CARE WILL BE ESTABLISHED THAT MEETS PATIENT'S DETENTION NEEDS AND INCLUDES PATIENT GOAL FOR HOME [...] End Date/Time Encounter Type Admission Type Attending [facility] Care Department Encounter ID Discharge Date Discharge Status Discharge Condition Discharge Reason Percent Goals Met 2024-12-11 00:00:00 2025-02-08 00:00:00 Outpatient RECERTIFIC ATION MARSHA ROQUE [facility] [id number] 4.35
== END 2024-12-24 10:30 | disposition home or self-care (01) ==
LOC: HO.HMCC 09:27
PROVIDERS: PCP Internal Medicine; Visit Provider Internal Medicine
DX: I10 Essential (primary) hypertension (principal); E78.5 Hyperlipidemia, unspecified; F41.9 Anxiety disorder, unspecified; F32.A Depression, unspecified

== ENCOUNTER 2024-12-29 08:30 | Outpatient (REF) | payer MEDICARE, OTHER, SELFPAY ==
--- NOTE | ~2024-12-29 | US_ITS ---
CLINICAL HISTORY: I63.9 - Cerebral infarction, unspecified US Bilateral Carotid Duplex Comparison: None provided Findings: Moderate plaque within the bifurcation/proximal ICA. Color doppler and spectral tracings normal. Peak systolic velocities: Right CCA: 58 cm/s. Right ICA: 64 cm/s. ICA/CCA ratio: 1.1. Right ECA: 87. Right vertebral artery flow antegrade. Left CCA: 77 cm/s. Left ICA: 50 cm/s. ICA/CCA ratio: 0.64. Left ECA: 67. Left vertebral artery flow antegrade. IMPRESSION: Normal carotid velocities, no significant stenosis (0-49% stenosis). This document has been electronically signed by: Tommie Mendenhall MD on 12/30/2024 06:53:33
--- OUTSIDE RECORDS SUMMARY | 2024-12-29 09:01 | XMS_ITS | Clinical Summary ---
Author Organization [facility] Address [address] [place] [address] Care Team Providers Care Wire Mesh Gate Assembler Name Role Phone Jia Parmar MD Primary Care Provider [phone] Social History Tobacco Use Types Packs/Day Years [...] age to complete this topic Care Teams Wire Mesh Gate Assembler Relationship Specialty Start Date End Date Jia Parmar MD [address] [facility] [place] [id number] PCP - General Grain Thresher 12/09/18
--- OUTSIDE RECORDS SUMMARY | 2024-12-29 09:01 | XMS_ITS | Clinical Summary ---
Author Organization [facility] Address [address] [place] [phone] Phone Care Team Providers Care Production Support Consultant Name Role Phone Jia Parmar MD Primary Care Provider [phone] Allergies Active Allergy Reactions Criticality Noted Date [...] this topic Medical Devices Implanted Type Area Neon Installer Device Identifier Shelf Expiration Date Model / Serial / Lot Iol Softport Ao [id number] 31.0d-08/14/2016 Implanted:2016 (Quantity not on file) MEDLINE 06/30/2018 Description:OS Iol Softport Ao [id number] 30.0d-09/16/2016 Implanted:2016 (Quantity not on file) MEDLINE 07/31/2020 Description:OD Insurance MEDICARE PART A & B [employer] TOTAL CHOICE INDEMNITY MEDICARE PART A & B [employer] TOTAL CHOICE INDEMNITY Care Teams Production Support Consultant Relationship Specialty Start Date End Date Jia Parmar MD [address] [place], [place] [phone] PCP - General Internal Medicine 10/24/16 Additional Source Comments The information contained in this document represents components of the legal health record. It is not the complete legal health record.[facility]
--- OUTSIDE RECORDS SUMMARY | 2024-12-29 09:01 | XMS_ITS | Clinical Summary ---
Author Organization [facility] Address [address] [place] [address] Care Team Providers Care Sourcing Analyst Name Role Phone Pcp, No Primary Care [...] (two) times a day. 60 capsule 11 5 11/18/19 26 Active cefpodoxime (VANTIN) 200 MG tabletIndicatio ns:C. difficile colitis,Infecti on of prosthetic knee joint, initial encounter Take 1 tablet (200 mg total) by mouth daily. 90 tablet 2 5 02/27/20 25 Active Active Problems Problem Noted Date Diagnosed Date Benign essential HTN 03/17/2020 HLD (hyperlipidemia) 03/17/2020 Glaucoma 03/17/2020 Type 2 diabetes mellitus wit hout complication, without long-term current use of insulin 03/17/2020 GERD (gastroesophageal reflux disease) Acquired hypothyroidism 03/17/2020 Depression 03/17/2020 Restless leg syndrome 03/17/2020 Infection of prosthetic knee joint 03/16/2020 Encounters Date Type Department Care Team Description 11/28/2024 Refill [facility] Department of Infectious Disease [place] [address] [place] [address] Emir Cowan MD C. difficile colitis; Infection of prosthetic knee joint, initial encounter 11/20/2024 Refill [facility] Department of Infectious Disease [place] [address] [place] [address] Emir Cowan MD C. difficile colitis from [...] Description 2025 8:15 AM EST Office Visit [facility] Department of Infectious Disease [place] [address] [place] [phone] Emir Cowan MD [address] [address] Health Maintenance Due Date Last Done Comments [...] this topic Medical Devices Implanted Type Area Library Serials Assistant Device Identifier Shelf Expiration Date Model / Serial / Lot [id number] Insert Articular 3-4 C-H Std [id number] Knee Net Mold Uhmwpe - [id number] Implanted:Qty: 1 on 03/17/2020 by Tray Duncan MD at [facility] Joint Prosthesis Right: Knee [employer] [id number] 01004/02/2027 [id number] / / [id number] Oral Implanted:Qty: 3 Oral Tooth Procedures Procedure [...] Insurance MEDICARE PART A & B [facility] [place] COMMERCIAL MEDICARE PART A & B [facility] COMMERCIAL Advance Directives Documents on File Type Date Recorded 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
--- OUTSIDE RECORDS SUMMARY | 2024-12-29 09:02 | XMS_ITS | Clinical Summary ---
Author Organization [facility] Address [address] [place] [address] Phone Care Team Providers Care Academic Success Coordinator Name Role Phone Jia Parmar MD Primary Care Provider [phone] Allergies Active Allergy Reactions Criticality Noted Date [...] EDT - 10/10/2024 12:32 PM EDT Emergency [facility] Emergency [address] [place] [address] Fede Ontiveros MD Kokkinos, Erika, MD Land[place], [...] reflex microscopic (10/09/2024 2:18 PM EDT) Specific [place] Urine 1.013 1.003 - 1.030 LAB URINALYSIS - AUTOMATED METHOD 10/09/2024 2:53 PM EDT [facility] pH, Urine 6.0 5.0 - 8.0 pH LAB URINALYSIS - AUTOMATED METHOD 10/09/2024 2:53 PM EDT [facility] Leukocytes, Urine Negative Negative LAB URINALYSIS - AUTOMATED METHOD 10/09/2024 2:53 PM EDT [facility] Nitrite, Urine Negative Negative LAB URINALYSIS - AUTOMATED METHOD 10/09/2024 2:53 PM EDT [facility] Protein, Urine Negative <=Trace mg/dL LAB URINALYSIS - AUTOMATED METHOD 10/09/2024 2:53 PM EDT [facility] Glucose, Urine Negative Negative mg/dL LAB URINALYSIS - AUTOMATED METHOD 10/09/2024 2:53 PM EDT [facility] Ketones, Urine Negative Negative mg/dL LAB URINALYSIS - AUTOMATED METHOD 10/09/2024 2:53 PM EDT [facility] Urobilinogen, Urine 0.2 0.2 - 1.0 mg/dL LAB URINALYSIS - AUTOMATED METHOD 10/09/2024 2:53 PM EDT [facility] Bilirubin, Urine Negative Negative LAB URINALYSIS - AUTOMATED METHOD 10/09/2024 2:53 PM EDT [facility] Blood, Urine Negative Negative LAB URINALYSIS - AUTOMATED METHOD 10/09/2024 2:53 PM T [facility] Urine Urine specimen obtained by clean catch procedure / Unknown Non-blood Collection / Unknown 10/09/2024 2:18 PM EDT 10/09/2024 2:26 PM EDT us Fede Ontiveros MD LAB URINE ORDERABLES Final R esult [facility] [address] [place] [address], * (ABNORMAL) Drug abuse screen 8a panel, urine (10/09/2024 2:18 PM EDT) Amphetamine Screen, Ur Negative Negative LAB CHEMISTRY METHOD 08/09/202 5 3:33 PM EDT [facility] Comment:Certain OTC medicati ons containing ephedrine, phenylephrine, pseudoephedrine and phenylpropanolamine can cause false positive results. Barbiturate Screen, Ur Negative Negative LAB CHEMISTRY METHOD 5 3:33 PM EDT [facility] Benzodiazepine Screen, Ur Negative Negative LAB CHEMISTRY METHOD 5 3:33 PM EDT [facility] Cocaine Screen, Ur Negative Negative LAB CHEMISTRY METHOD 5 3:33 PM EDT [facility] Opiate Screen, Ur Positive(A ) Negative [facility] Cannabinoid (THC) Screen, Ur Negative Negative LAB CHEMISTRY METHOD 5 3:33 PM T [facility] Comment:Specimens from patie nts taking pantoprazole sodium (Protonix) have been shown to produce false positive results. Oxycodone Screen, Ur Negative Negative LAB CHEMISTRY METHOD 5 3:33 PM EDT [facility] Fentanyl, Ur Negative Negative LAB CHEMISTRY METHOD 5 3:33 PM [facility] Urine Urine specimen obtained by clean catch procedure / Unknown Non-blood Collection / Unknown 10/09/2024 2:18 PM EDT 10/09/2024 2:27 PM EDT Narrative [facility] - 10/09/2024 3:33 PM EDT [...] MD LAB URINE ORDERABLES Final R esult [facility] [address] [place] [address], [place] [phone] * Troponin I high sensitivity (10/09/2024 12:54 PM EDT) Only the most recent of2 resultswithin the time period is included. High Sensitivity Troponin I 9 <=54 ng/L LAB CHEMISTRY METHOD 10/09/2024 1:36 PM EDT [facility] Blood Venous blood specimen / Unknown Venipuncture / Unknown 10/09/2024 12:54 PM EDT 10/09/2024 1:00 PM EDT Narrative [facility] - 10/09/2024 1:36 PM EDT High levels of biotin in samples may falsely decrease hsTroponin values. Use caution when interpreting hsTroponin results in patients taking biotin who exhibit renal impairment (eGFR <60) or in patients taking more than 20 mg/day of biotin. us Fede Ontiveros MD LAB BLOOD ORDERABLES Final R esult Performing Organization Address [facility] Co de Phone Number [facility] [address] [place] [address], [place] [phone] * CT Head wo Contrast (10/09/2024 12:05 [...] Signed Date: 10/09/2024 12:20 ET Workstation ID: [id number] Transcribed By: Self Edit Transcribed Date: 10/09/2024 [...] Signed Date: 10/09/2024 12:20 ET Workstation ID: [id number] Transcribed By: Self Edit Transcribed Date: 10/09/2024 12:17 ET us Fede Ontiveros MD IMG CT PROCEDURES Final Resu lt * (ABNORMAL) CBC auto differential (10/09/2024 11:40 AM EDT) WBC 11.0(H) 4.8 - 10.8 K/mcL LAB HEMETOLOGY METHOD 10/09/2024 11:53 AM [facility] RBC 3.70(L) 3.80 - 4.80 M/mcL LAB HEMETOLOGY METHOD 10/09/2024 11:53 AM [facility] Hemoglobin 11.0(L) 11.5 - 16.0 g/dL LAB HEMETOLOGY METHOD 10/09/2024 11:53 AM [facility] Hematocrit 33.3(L) 35.0 - 47.0 % LAB HEMETOLOGY METHOD 10/09/2024 11:53 AM [facility] MCV 90.0 79.0 - 98.0 FL LAB HEMETOLOGY METHOD 10/09/2024 11:53 AM [facility] MCH 29.7 27.0 - 32.0 pcg LAB HEMETOLOGY METHOD 10/09/2024 11:53 AM [facility] MCHC 33.0 32.0 - 37.0 g/dL LAB HEMETOLOGY METHOD 10/09/2024 11:53 AM [facility] RDW 12.5 11.0 - 15.0 % LAB HEMETOLOGY METHOD 10/09/2024 11:53 AM [facility] Platelets 229 130 - 400 K/mcL LAB HEMETOLOGY METHOD 10/09/2024 11:53 AM [facility] MPV 10.8 7.0 - 11.0 FL LAB HEMETOLOGY METHOD 10/09/2024 11:53 AM [facility] NRBC 0.0 <1.0 % LAB HEMETOLOGY METHOD 10/09/2024 11:53 AM [facility] NRBC Absolute 0.00 <0.10 K/mcL LAB HEMETOLOGY METHOD 10/09/2024 11:53 AM [facility] Neutrophils Relative 75.1 % LAB HEMETOLOGY METHOD 10/09/2024 11:53 AM [facility] Lymphocytes Relative 17.1 % LAB HEMETOLOGY METHOD 10/09/2024 11:53 AM [facility] Monocytes Relative 5.4 % LAB HEMETOLOGY METHOD 10/09/2024 11:53 AM [facility] Eosinophils Relative 1.4 % LAB HEMETOLOGY METHOD 10/09/2024 11:53 AM [facility] Basophils Relative 0.5 % LAB HEMETOLOGY METHOD 10/09/2024 11:53 AM [facility] Immature Granulocytes Relative 0.5 % LAB HEMETOLOGY METHOD 10/09/2024 11:53 AM [facility] Neutrophils Absolute 8.23(H) 1.50 - 7.00 K/mcL LAB HEMETOLOGY METHOD 10/09/2024 11:53 AM [facility] Lymphocytes Absolute 1.87 1.00 - 5.00 K/mcL LAB HEMETOLOGY METHOD 10/09/2024 11:53 AM [facility] Monocytes Absolute 0.59 0.20 - 1.00 K/mcL LAB HEMETOLOGY METHOD 10/09/2024 11:53 AM EDT [facility] Eosinophils Absolute 0.15 0.00 - 0.50 K/mcL LAB HEMETOLOGY METHOD 10/09/2024 11:53 AM EDT [facility] Basophils Absolute 0.06 0.00 - 0.20 K/[facility] LAB HEMETOLOGY METHOD 10/09/2024 11:53 AM EDT [facility] Immature Granulocytes Absolute 0.05(H) 0.00 - 0.03 K/[facility] LAB HEMETOLOGY METHOD 10/09/2024 11:53 AM EDT [facility] Blood Venous blood specimen / Unknown Venipuncture / Unknown 10/09/2024 11:40 AM EDT 10/09/2024 11:46 AM EDT Fede Ontiveros MD LAB BLOOD ORDERABLES Final R esult Performing Organization Address City/[facility]/ZIP Co de Phone Number [facility] [address] [place] [address], * (ABNORMAL) Thyroid Stimulating Hormone (TSH) (10/09/2024 11:40 AM EDT) TSH 0.30(L) 0.40 - 4.00 mcIU/mL LAB CHEMISTRY METHOD 10/09/2024 12:47 PM EDT [facility] Blood Venous blood specimen / Unknown Venipuncture / Unknown 10/09/2024 11:40 AM EDT 10/09/2024 11:47 AM EDT Fede Ontiveros MD LAB BLOOD ORDERABLES Final R esult Performing Organization Address City/[facility]/ZIP Co de Phone Number [facility] [address] [place] [address], [place] [phone] * Phosphorus (10/09/2024 11:40 AM EDT) Phosphorus 4.2 2.5 - 4.5 mg/dL LAB CHEMISTRY METHOD 10/09/2024 12:16 PM EDT [facility] Blood Venous blood specimen / Unknown Venipuncture / Unknown 10/09/2024 11:40 AM EDT 10/09/2024 11:47 AM EDT us Fede Ontiveros MD LAB BLOOD ORDERABLES Final R esult [facility] [address] [place] [address], [place] [phone] * Magnesium (10/09/2024 11:40 AM EDT) [facility] Magnesium 2.0 1.9 - 2.6 mg/dL LAB CHEMISTRY METHOD 10/09/2024 12:16 PM EDT [facility] Blood Venous blood specimen / Unknown Venipuncture / Unknown 10/09/2024 11:40 AM EDT 10/09/2024 11:47 AM EDT us Fede Ontiveros MD LAB BLOOD ORDERABLES Final R esult [facility] [address] [place] [address], [place] [phone] * Creatine kinase (10/09/2024 11:40 AM EDT) Total CK 103 22 - 269 unit/L LAB CHEMISTRY METHOD 10/09/2024 12:16 PM EDT [facility] Blood Venous blood specimen / Unknown Venipuncture / Unknown 10/09/2024 11:40 AM EDT 10/09/2024 11:47 AM EDT us Fede Ontiveros MD LAB BLOOD ORDERABLES Final R esult [facility] [address] [place] [address], * (ABNORMAL) Comprehensive Metabolic Panel (CMP) (10/09/2024 11:40 AM EDT) Sodium 139 133 - 145 mmol/L LAB CHEMISTRY METHOD [facility] Potassium 4.4 3.5 - 5.5 mmol/L LAB CHEMISTRY METHOD 10/09/2024 12:16 PM [facility] Chloride 109 96 - 110 mmol/L LAB CHEMISTRY METHOD 10/09/2024 12:16 PM [facility] CO2 26 21 - 32 mmol/L LAB CHEMISTRY METHOD 10/09/2024 12:16 PM [facility] Anion Gap 4 3 - 11 LAB CHEMISTRY METHOD 10/09/2024 12:16 PM [facility] Glucose 129(H) 70 - 100 mg/dL LAB CHEMISTRY METHOD 10/09/2024 12:16 PM [facility] BUN 31(H) 5 - 25 mg/dL LAB CHEMISTRY METHOD 10/09/2024 12:16 PM [facility] Creatinine 1.22(H) 0.50 - 1.10 mg/dL LAB CHEMISTRY METHOD 10/09/2024 12:16 PM [facility] eGFR 45(L) >=60 mL/min/1. 73m2 LAB CHEMISTRY METHOD 10/09/2024 12:16 PM [facility] Comment:Calculation based on the Chronic Kidney Disease Epidemiology Collaboration (CKD-EPI) equation refit without adjustment for race. BUN/Creatinine Ratio 25.4 LAB CHEMISTRY METHOD 10/09/2024 12:16 PM [facility] Calcium 9.2 8.5 - 10.5 mg/dL LAB CHEMISTRY METHOD 10/09/2024 12:16 PM EDT [facility] AST (SGOT) 31 10 - 42 unit/L LAB CHEMISTRY METHOD 10/09/2024 12:16 PM EDT [facility] ALT (SGPT) 41 10 - 60 unit/L LAB CHEMISTRY METHOD 10/09/2024 12:16 PM EDT [facility] Alkaline Phosphatase 65 42 - 121 unit/L LAB CHEMISTRY METHOD 10/09/2024 12:16 PM EDT [facility] Total Protein 6.2 6.0 - 8.0 g/dL LAB CHEMISTRY METHOD 10/09/2024 12:16 PM EDT [facility] Albumin 3.6 3.2 - 5.0 g/dL LAB CHEMISTRY METHOD 10/09/2024 12:16 PM EDT [facility] Total Bilirubin 0.5 0.0 - 1.4 mg/dL LAB CHEMISTRY METHOD 10/09/2024 12:16 PM EDT [facility] Blood Venous blood specimen / Unknown Venipuncture / Unknown 10/09/2024 11:40 AM EDT 10/09/2024 11:47 AM EDT Fede Ontiveros MD LAB BLOOD ORDERABLES Final R esult [facility] [address] [place] [address], * 12-Lead ECG (10/09/2024 11:31 AM EDT) Ventricular Rate ECG 68 BPM GEMUSE Atrial Rate 68 BPM GEMUSE P-R Interval 168 ms GEMUSE QRS Duration 84 ms GEMUSE Q-T Interval 438 ms GEMUSE QTc 465 ms GEMUSE P Wave [place] -11 degrees GEMUSE R [place] -13 degrees GEMUSE T [place] 19 degrees GEMUSE ECG Interpretation Normal sinus [...] AM EDT Narrative 11/19/2022 11:36 AM EDT [facility] Diagnostic Imaging Department [address] [place], [place] [id number] Patient: VILLAHEBER /Age/Sex: 1945 - 77 - F Unit#: [id number] [facility] Ordering Physician: JOSE SAMUELS MD Leticia [...] probability of hip fracture of 4.7%. Code 19318 Dictating Physician: CLIVE BREWER MD Electronically Signed by: CLIVE BREWER MD Dic Date/Time: 11/19/22 1133 Sign date/Time: 11/19/22 1136 Procedure Note Clive Brewer MD - 04/08/2023 [facility] Diagnostic Imaging Department [address] [place] [address] Patient: HEBER LESLIE Apoorva /Age/Sex: 1945 - 77 - F Unit#: [id number] Location/Status: SPD[facility]AM/REG CLI Mnemonic[facility] Ordering Physician: JOSE SAMUELS MD Leticia [...] density of the femurs bilaterally is 0.799 gm/dc8dhiau is 79% of that of young normals [...] probability of hip fracture of 4.7%. 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
== END 2024-12-29 08:31 | disposition home or self-care (01) ==
LOC: HO.HMGCX 08:30
PROVIDERS: PCP Internal Medicine; Visit Provider Internal Medicine
DX: I65.23 Occlusion and stenosis of bilateral carotid arteries (principal); I63.9 Cerebral infarction, unspecified
CPT/HCPCS: 93880

== ENCOUNTER → 2024-12-29 08:32 | Outpatient (BNV) | payer MEDICARE, OTHER, SELFPAY | PROVIDERS: PCP Internal Medicine; Visit Provider Radiology Diagnostic Radiology | DX: I63.9 Cerebral infarction, unspecified (principal) | CPT/HCPCS: 93880 ==

== ENCOUNTER 2024-12-31 11:02 | Outpatient (AMB) | payer MEDICARE, OTHER, SELFPAY ==
[2024-12-31 11:03] VITALS: BP 138/72; PULSE 73; RESP 16; TEMP 36.8; O2SAT 95; BMI 19.9
--- NOTE | 2024-12-31 11:03 | MHC.PC.OV ---
Vital Signs 12/31/24 11:03 Height 5 ft Weight 102 lb BMI 19.9 BP 138/72 Blood Pressure Location Lt brachial Position Sitting Respiration 16 Pulse 73 Pulse Source Pulse Oximeter Temp 98.2 F Temp Source Oral Pulse Oximetry (%) 95 Oxygen Delivery Method Room Air Intake Visit Reasons: 1 week follow up Intake Note: Pt is here today for 1 week follow up visit on BP. Allergies cephalexin (CEPHALEXIN) Allergy (Severe, Verified 12/31/24 11:05) ANAPHYLAXIS nitrofurantoin (From MACRODANTIN) Allergy (Severe, Verified 12/31/24 11:05) ANAPHYLAXIS albuterol (ALBUTEROL) Allergy (Intermediate, Verified 12/31/24 11:05) ITCHING Sulfa (Sulfonamide Antibiotics) (SULFA (SULFONAMIDE ANTIBIOTICS)) Allergy (Intermediate, Verified 12/31/24 11:05) ITCHING acetaminophen (Percocet) Allergy (Unknown, Verified 12/31/24 11:05) itchy amoxicillin Allergy (Unknown, Verified 12/31/24 11:05) itchy and diarrhea doxycycline Allergy (Unknown, Verified 12/31/24 11:05) itchy gluten (GLUTEN) Allergy (Unknown, Verified 12/31/24 11:05) Ciliac disease indomethacin (Indocin) Allergy (Unknown, Verified 12/31/24 11:05) n/a lactose Allergy (Unknown, Verified 12/31/24 11:05) severe diarrhea latex Allergy (Unknown, Verified 12/31/24 11:05) itchy rash oxycodone (Percocet) Allergy (Unknown, Verified 12/31/24 11:05) itchy olmesartan Adverse Reaction (Intermediate, Verified 12/31/24 11:05) diarrhea DAIRY PRODUCTS Allergy (Unknown, Uncoded 12/31/24 11:05) severe diarrhea ventolin tabs Allergy (Unknown, Uncoded 12/31/24 11:05) Palpitations Tobacco use date assessed: 11/24/24 Dental Screening Dental Screen Date: 03/11/24 HPI 1 week follow up HPI Details Patient presents for the follow-up on hypertension and anxiety. She reports feeling better. Patient increased metoprolol to 75 mg twice a day and gabapentin to 200 mg 3 times a day. Patient reports sleeping better and has improved appetite. She continues to experience chronic lower back pain worse when walking or sitting for long time and is established with pain management. [facility] Medical History Lumbar spinal stenosis due to adjacent segment disease after fusion procedure Hx of rheumatoid arthritis Hx of ectopic Back pain Arthritis Thyroid disease Diabetes Peptic ulcer Fatty liver Asthma On anticoagulant therapy DVT (deep venous thrombosis) Pulmonary embolism Osteopenia Minor skin laceration Annual physical exam Vitamin B 12 deficiency Vitamin D deficiency Chronic infection of knee joint prosthesis Diarrhea Knee pain Hypothyroidism Normal Pap smear Degenerative joint disease (DJD) of lumbar spine Microscopic colitis GERD (gastroesophageal reflux disease) Factor V deficiency Depression Colitis without complication Hyperglycemia Hyperlipidemia HTN (hypertension) Surgical History History of dental surgery History of release of tendon Hx of hammer toe correction History of bunionectomy of left great toe Hx of cholecystectomy H/O colonoscopy H/O cervical spine surgery History of lumbar surgery History of carpal tunnel syndrome History of knee replacement History of vagotomy History of total abdominal hysterectomy and bilateral salpingo-oophorectomy Family History Father Bladder cancer Mother Hypertension Social History Household Members: Spouse Housing: House Are you a primary palliative care specialist to a significant other at home: No Do you presently have visiting nurse or other home services: No Alcohol intake: never Patient Tobacco Use Status: Never used Tobacco e-Cigarette/Vaping Use: Never Used Second Hand Smoke Exposure: Yes service: No Current occupational status: retired Cognitive needs: No Hearing needs: No Vision needs: Yes Questionnaire Thrive Questionnaire Date Thrive assessed: 03/08/24 I am a: Patient What is your living situation today?: I have a steady place to live Within the past 12 months, did the food you bought not last and you didn't have the money to get more?: Never true Within the past 12 months, did you worry whether your food would run out before you got money to buy more?: Never true Do you have trouble paying for medicines?: No Do you have trouble getting transportation to medical appointments?: No Do you have trouble paying your heating and electricity bill?: No Do you have trouble taking care of your child, family member or friend?: No Do you have trouble with day-to-day activities such as bathing, preparing meals, shopping, managing finances, etc.?: No Are you currently unemployed and looking for a job?: No Are you interested in more education?: No Please select the resources that you would like help with: None Currently or been in a relationship where the following occur: No concerns reported THRIVE Score: 0 ROSALINDA-7 AMB Questionnaire ROSALINDA-7 Date ROSALINDA - 7 assessed: 03/11/24 Source: Developed by Drs. Andrew Pompa, Tasha Barnard, Jonathan Minor and colleagues, with an educational farooq from [employer]. Review of Systems Const All systems reviewed & are unremarkable except as noted in HPI and below ENT Reports no additional complaints Card Reports no additional complaints Resp Reports no additional complaints GI Reports no additional complaints Reports no additional complaints Physical exam (Primary Care) Vital Signs: Last Vital Signs Temp 98.2 F 12/31/24 11:03 Pulse 73 12/31/24 11:03 Resp 16 12/31/24 11:03 BP 138/72 12/31/24 11:03 Pulse Ox 95 12/31/24 11:03 Oxygen Delivery Method Room Air 12/31/24 11:03 BMI result Body Mass Index 19.9 Tobacco/Smoking Status: Tobacco use Status Tobacco use date assessed 11/24/24 12/31/24 11:08 Patient Tobacco Use Status Never used Tobacco 12/31/24 11:08 e-Cigarette/Vaping Use Never Used 12/31/24 11:08 Thrive Assessment: Date of Thrive Assessment Date Thrive assessed 03/08/24 12/31/24 11:08 Currently or been in a relationship where the following occur: No concerns reported Const General: no acute distress HENMT Head: Yes normal to inspection Eyes General: appearance normal, both eyes and all related structures Resp Effort & Inspection: normal respiratory effort Auscultation: clear to auscultation bilaterally Cardio Rhythm: regular rhythm Heart sounds: S1 normal heart sound present and S2 normal heart sound present Coding Level of Care Code Est Pt Level 4 (06267) Diagnoses HTN (hypertension) I10 Anxiety and depression F41.9; F32.A Lumbar spinal stenosis due to adjacent segment disease after fusion procedure M48.061; M51.36 Assessment & Plan Assessment & Plan (1) HTN (hypertension): Code(s): I10 - Essential (primary) hypertension Category: Medical Plan: Continue current medications follow-up in 1 month (2) Anxiety and depression: Code(s): F41.9 - Anxiety disorder, unspecified; F32.A - Depression, unspecified Category: Medical Plan: Continue duloxetine for chronic pain and anxiety and depression (3) Lumbar spinal stenosis due to adjacent segment disease after fusion procedure: Comment: Patient is established with pain management , treated with opiates PRN, Dilaudid and gabapentin Code(s): M48.061 - Spinal stenosis, lumbar region without neurogenic claudication; M51.36 - Other intervertebral disc degeneration, lumbar region Category: Medical Plan: Continue gabapentin and follow-up with pain management
--- OUTSIDE RECORDS SUMMARY | 2024-12-31 12:37 | XMS_ITS | Clinical Summary ---
Author Organization [facility] Address [address] [place] [address] Phone Care Team Providers Care Slat Basket Maker Helper Machine Name Role Phone Jia Parmar MD Primary [...] EDT - 10/10/2024 12:32 PM EDT Emergency [facility] Emergency [address] [place] [address] Fede Ontiveros MD Kokkinos, Erika, MD Landry, [...] reflex microscopic (10/09/2024 2:18 PM EDT) Specific [place] Urine 1.013 1.003 - 1.030 LAB URINALYSIS - AUTOMATED METHOD 10/09/2024 2:53 PM EDT [facility] pH, Urine 6.0 5.0 - 8.0 pH LAB URINALYSIS - AUTOMATED METHOD 10/09/2024 2:53 PM EDT [facility] Leukocytes, Urine Negative Negative LAB URINALYSIS - AUTOMATED METHOD 10/09/2024 2:53 PM EDT [facility] Nitrite, Urine Negative Negative LAB URINALYSIS - AUTOMATED METHOD 10/09/2024 2:53 PM EDT [facility] Protein, Urine Negative <=Trace mg/dL LAB URINALYSIS - AUTOMATED METHOD 10/09/2024 2:53 PM EDT [facility] Glucose, Urine Negative Negative mg/dL LAB URINALYSIS - AUTOMATED METHOD 10/09/2024 2:53 PM EDT [facility] Ketones, Urine Negative Negative mg/dL LAB URINALYSIS - AUTOMATED METHOD 10/09/2024 2:53 PM EDT [facility] Urobilinogen, Urine 0.2 0.2 - 1.0 mg/dL LAB URINALYSIS - AUTOMATED METHOD 10/09/2024 2:53 PM EDT [facility] Bilirubin, Urine Negative Negative LAB URINALYSIS - AUTOMATED METHOD 10/09/2024 2:53 PM EDT [facility] Blood, Urine Negative Negative LAB URINALYSIS - AUTOMATED METHOD 10/09/2024 2:53 PM T [facility] Urine Urine specimen obtained by clean catch procedure / Unknown Non-blood Collection / Unknown 10/09/2024 2:18 PM EDT 10/09/2024 2:26 PM EDT us Fede Ontiveros MD LAB URINE ORDERABLES Final R esult [facility] [address] [place] [address], * (ABNORMAL) Drug abuse screen 8a panel, urine (10/09/2024 2:18 PM EDT) Amphetamine Screen, Ur Negative Negative LAB CHEMISTRY METHOD 08/09/202 5 3:33 PM EDT [facility] Comment:Certain OTC medicati ons containing ephedrine, phenylephrine, pseudoephedrine and phenylpropanolamine can cause false positive results. Barbiturate Screen, Ur Negative Negative LAB CHEMISTRY METHOD 5 3:33 PM EDT [facility] Benzodiazepine Screen, Ur Negative Negative LAB CHEMISTRY METHOD 5 3:33 PM EDT [facility] Cocaine Screen, Ur Negative Negative LAB CHEMISTRY METHOD 5 3:33 PM EDT [facility] Opiate Screen, Ur Positive(A ) Negative [facility] Cannabinoid (THC) Screen, Ur Negative Negative LAB CHEMISTRY METHOD 5 3:33 PM T [facility] Comment:Specimens from patie nts taking pantoprazole sodium (Protonix) have been shown to produce false positive results. Oxycodone Screen, Ur Negative Negative LAB CHEMISTRY METHOD 5 3:33 PM EDT [facility] Fentanyl, Ur Negative Negative LAB CHEMISTRY METHOD 5 3:33 PM [facility] Urine Urine specimen obtained by clean catch procedure / Unknown Non-blood Collection / Unknown 10/09/2024 2:18 PM EDT 10/09/2024 2:27 PM EDT Narrative [facility] - 10/09/2024 3:33 PM [...] MD LAB URINE ORDERABLES Final R esult [facility] [address] [place] [address], [place] [phone] * Troponin I high sensitivity (10/09/2024 12:54 PM EDT) Only the most recent of2 resultswithin the time period is included. High Sensitivity Troponin I 9 <=54 ng/L LAB CHEMISTRY METHOD 10/09/2024 1:36 PM EDT [facility] Blood Venous blood specimen / Unknown Venipuncture / Unknown 10/09/2024 12:54 PM EDT 10/09/2024 1:00 PM EDT Narrative [facility] - 10/09/2024 1:36 PM EDT High levels of biotin in samples may falsely decrease hsTroponin values. Use caution when interpreting hsTroponin results in patients taking biotin who exhibit renal impairment (eGFR <60) or in patients taking more than 20 mg/day of biotin. us Fede Ontiveros MD LAB BLOOD ORDERABLES Final R esult Performing Organization Address [facility] Co de Phone Number [facility] [address] [place] [address], [place] [phone] * CT Head wo Contrast (10/09/2024 12:05 [...] Signed Date: 10/09/2024 12:20 ET Workstation ID: [id number] Transcribed By: Self Edit Transcribed Date: 10/09/2024 [...] Signed Date: 10/09/2024 12:20 ET Workstation ID: [id number] Transcribed By: Self Edit Transcribed Date: 10/09/2024 12:17 ET us Fede Ontiveros MD IMG CT PROCEDURES Final Resu lt * (ABNORMAL) CBC auto differential (10/09/2024 11:40 AM EDT) WBC 11.0(H) 4.8 - 10.8 K/mcL LAB HEMETOLOGY METHOD 10/09/2024 11:53 AM [facility] RBC 3.70(L) 3.80 - 4.80 M/mcL LAB HEMETOLOGY METHOD 10/09/2024 11:53 AM [facility] Hemoglobin 11.0(L) 11.5 - 16.0 g/dL LAB HEMETOLOGY METHOD 10/09/2024 11:53 AM [facility] Hematocrit 33.3(L) 35.0 - 47.0 % LAB HEMETOLOGY METHOD 10/09/2024 11:53 AM [facility] MCV 90.0 79.0 - 98.0 FL LAB HEMETOLOGY METHOD 10/09/2024 11:53 AM [facility] MCH 29.7 27.0 - 32.0 pcg LAB HEMETOLOGY METHOD 10/09/2024 11:53 AM [facility] MCHC 33.0 32.0 - 37.0 g/dL LAB HEMETOLOGY METHOD 10/09/2024 11:53 AM [facility] RDW 12.5 11.0 - 15.0 % LAB HEMETOLOGY METHOD 10/09/2024 11:53 AM [facility] Platelets 229 130 - 400 K/mcL LAB HEMETOLOGY METHOD 10/09/2024 11:53 AM [facility] MPV 10.8 7.0 - 11.0 FL LAB HEMETOLOGY METHOD 10/09/2024 11:53 AM [facility] NRBC 0.0 <1.0 % LAB HEMETOLOGY METHOD 10/09/2024 11:53 AM [facility] NRBC Absolute 0.00 <0.10 K/mcL LAB HEMETOLOGY METHOD 10/09/2024 11:53 AM [facility] Neutrophils Relative 75.1 % LAB HEMETOLOGY METHOD 10/09/2024 11:53 AM [facility] Lymphocytes Relative 17.1 % LAB HEMETOLOGY METHOD 10/09/2024 11:53 AM [facility] Monocytes Relative 5.4 % LAB HEMETOLOGY METHOD 10/09/2024 11:53 AM [facility] Eosinophils Relative 1.4 % LAB HEMETOLOGY METHOD 10/09/2024 11:53 AM [facility] Basophils Relative 0.5 % LAB HEMETOLOGY METHOD 10/09/2024 11:53 AM [facility] Immature Granulocytes Relative 0.5 % LAB HEMETOLOGY METHOD 10/09/2024 11:53 AM [facility] Neutrophils Absolute 8.23(H) 1.50 - 7.00 K/mcL LAB HEMETOLOGY METHOD 10/09/2024 11:53 AM [facility] Lymphocytes Absolute 1.87 1.00 - 5.00 K/mcL LAB HEMETOLOGY METHOD 10/09/2024 11:53 AM [facility] Monocytes Absolute 0.59 0.20 - 1.00 K/mcL LAB HEMETOLOGY METHOD 10/09/2024 11:53 AM EDT [facility] Eosinophils Absolute 0.15 0.00 - 0.50 K/mcL LAB HEMETOLOGY METHOD 10/09/2024 11:53 AM EDT [facility] Basophils Absolute 0.06 0.00 - 0.20 K/[facility] LAB HEMETOLOGY METHOD 10/09/2024 11:53 AM EDT [facility] Immature Granulocytes Absolute 0.05(H) 0.00 - 0.03 K/[facility] LAB HEMETOLOGY METHOD 10/09/2024 11:53 AM EDT [facility] Blood Venous blood specimen / Unknown Venipuncture / Unknown 10/09/2024 11:40 AM EDT 10/09/2024 11:46 AM EDT Fede Ontiveros MD LAB BLOOD ORDERABLES Final R esult Performing Organization Address City/[facility]/ZIP Co de Phone Number [facility] [address] [place] [address], * (ABNORMAL) Thyroid Stimulating Hormone (TSH) (10/09/2024 11:40 AM EDT) TSH 0.30(L) 0.40 - 4.00 mcIU/mL LAB CHEMISTRY METHOD 10/09/2024 12:47 PM EDT [facility] Blood Venous blood specimen / Unknown Venipuncture / Unknown 10/09/2024 11:40 AM EDT 10/09/2024 11:47 AM EDT Fede Ontiveros MD LAB BLOOD ORDERABLES Final R esult Performing Organization Address City/[facility]/ZIP Co de Phone Number [facility] [address] [place] [address], [place] [phone] * Phosphorus (10/09/2024 11:40 AM EDT) Phosphorus 4.2 2.5 - 4.5 mg/dL LAB CHEMISTRY METHOD 10/09/2024 12:16 PM EDT [facility] Blood Venous blood specimen / Unknown Venipuncture / Unknown 10/09/2024 11:40 AM EDT 10/09/2024 11:47 AM EDT us Fede Ontiveros MD LAB BLOOD ORDERABLES Final R esult [facility] [address] [place] [address], [place] [phone] * Magnesium (10/09/2024 11:40 AM EDT) [facility] Magnesium 2.0 1.9 - 2.6 mg/dL LAB CHEMISTRY METHOD 10/09/2024 12:16 PM EDT [facility] Blood Venous blood specimen / Unknown Venipuncture / Unknown 10/09/2024 11:40 AM EDT 10/09/2024 11:47 AM EDT us Fede Ontiveros MD LAB BLOOD ORDERABLES Final R esult [facility] [address] [place] [address], [place] [phone] * Creatine kinase (10/09/2024 11:40 AM EDT) Total CK 103 22 - 269 unit/L LAB CHEMISTRY METHOD 10/09/2024 12:16 PM EDT [facility] Blood Venous blood specimen / Unknown Venipuncture / Unknown 10/09/2024 11:40 AM EDT 10/09/2024 11:47 AM EDT us Fede Ontiveros MD LAB BLOOD ORDERABLES Final R esult [facility] [address] [place] [address], * (ABNORMAL) Comprehensive Metabolic Panel (CMP) (10/09/2024 11:40 AM EDT) Sodium 139 133 - 145 mmol/L LAB CHEMISTRY METHOD [facility]24 [facility] Potassium 4.4 3.5 - 5.5 mmol/L LAB CHEMISTRY METHOD 10/09/2024 12:16 PM [facility] Chloride 109 96 - 110 mmol/L LAB CHEMISTRY METHOD 10/09/2024 12:16 PM [facility] CO2 26 21 - 32 mmol/L LAB CHEMISTRY METHOD 10/09/2024 12:16 PM [facility] Anion Gap 4 3 - 11 LAB CHEMISTRY METHOD 10/09/2024 12:16 PM [facility] Glucose 129(H) 70 - 100 mg/dL LAB CHEMISTRY METHOD 10/09/2024 12:16 PM [facility] BUN 31(H) 5 - 25 mg/dL LAB CHEMISTRY METHOD 10/09/2024 12:16 PM [facility] Creatinine 1.22(H) 0.50 - 1.10 mg/dL LAB CHEMISTRY METHOD 10/09/2024 12:16 PM [facility] eGFR 45(L) >=60 mL/min/1. 73m2 LAB CHEMISTRY METHOD 10/09/2024 12:16 PM [facility] Comment:Calculation based on the Chronic Kidney Disease Epidemiology Collaboration (CKD-EPI) equation refit without adjustment for race. BUN/Creatinine Ratio 25.4 LAB CHEMISTRY METHOD 10/09/2024 12:16 PM [facility] Calcium 9.2 8.5 - 10.5 mg/dL LAB CHEMISTRY METHOD 10/09/2024 12:16 PM EDT [facility] AST (SGOT) 31 10 - 42 unit/L LAB CHEMISTRY METHOD 10/09/2024 12:16 PM EDT [facility] ALT (SGPT) 41 10 - 60 unit/L LAB CHEMISTRY METHOD 10/09/2024 12:16 PM EDT [facility] Alkaline Phosphatase 65 42 - 121 unit/L LAB CHEMISTRY METHOD 10/09/2024 12:16 PM EDT [facility] Total Protein 6.2 6.0 - 8.0 g/dL LAB CHEMISTRY METHOD 10/09/2024 12:16 PM EDT [facility] Albumin 3.6 3.2 - 5.0 g/dL LAB CHEMISTRY METHOD 10/09/2024 12:16 PM EDT [facility] Total Bilirubin 0.5 0.0 - 1.4 mg/dL LAB CHEMISTRY METHOD 10/09/2024 12:16 PM EDT [facility] Blood Venous blood specimen / Unknown Venipuncture / Unknown 10/09/2024 11:40 AM EDT 10/09/2024 11:47 AM EDT Fede Ontiveros MD LAB BLOOD ORDERABLES Final R esult [facility] [address] [place] [address], * 12-Lead ECG (10/09/2024 11:31 AM EDT) Ventricular Rate ECG 68 BPM GEMUSE Atrial Rate 68 BPM GEMUSE P-R Interval 168 ms GEMUSE QRS Duration 84 ms GEMUSE Q-T Interval 438 ms GEMUSE QTc 465 ms GEMUSE P Wave [place] -11 degrees GEMUSE R [place] -13 degrees GEMUSE T [place] 19 degrees GEMUSE ECG Interpretation Normal sinus rhythm Septal infarct (cited on or before 09-DEC-2020) Inferior infarct (cited on or before 13-FEB-2019) When compared with ECG of 09-OCT-2021 10:59, No significant change was found Confirmed by JANEE GUADALUPE ([id number]) on 10/11/2024 12:20:23 AM GEMUSE 10/09/2024 11:3 1 AM EDT 10/11/2024 12:20 AM EDT us Fede Ontiveros MD ECG ORDERABLES Final Result DOIMNIC * LETICIA DEXA AXIAL SKELETON (11/19/2022 11:36 AM EDT) Anatomical Region Laterality Modality Mammography 11/19/2022 8:53 AM EDT Narrative 11/19/2022 11:36 AM EDT [facility] Diagnostic Imaging Department [address] [place], [place] [address] Patient: VILLAHEBER /Age/Sex: 1945 - 77 - F Unit#: [id number] [facility] Ordering Physician: JOSE SAMUELS MD Leticia [...] probability of hip fracture of 4.7%. Code 38869 Dictating Physician: CLIVE BREWER MD Electronically Signed by: CLIVE BREWER MD Dic Date/Time: 11/19/22 1133 Sign date/Time: 11/19/22 1136 Procedure Note Clive Brewer MD - 04/08/2023 [facility] Diagnostic Imaging Department [address] [place] [address] Patient: HEBER LESLIE Apoorva /Age/Sex: 1945 - 77 - F Unit#: [id number] Location/Status: [facility]/REG CLI Mnemonic[facility] Ordering Physician: JOSE SAMUELS MD Leticia [...] density of the femurs bilaterally is 0.799 gm/cr6rirux is 79% of that of young normals [...] probability of hip fracture of 4.7%. Code 71186 Dictating Physician: CLIVE BREWER MD Electronically Signed by: CLIVE BREWER MD Dic Date/Time: 11/19/22 1133 Sign date/Time: 11/19/22 1136 Jose Samuels MD IM BI PROCEDURES Final Result from Last 3 Months or Most Recently Relevant to Health Maintenance Insurance MEDICARE [place]ICA[place] - [place] [facility] Advance Directives Documents on File Type Date Recorded Patient Rn Practitioner Expl anation Health Care Decision (hx) 03/16/2014 [...] (hx) 03/16/2014 AD CALDERON DIRECTIVE Care Teams Slat Basket Maker Helper Machine Relationship Specialty Start Date End Date Jia Parmar MD [address] [place] [address] PCP - General Internal Medicine 02/20/24
--- OUTSIDE RECORDS SUMMARY | 2024-12-31 12:37 | XMS_ITS | Patient Health Record ---
Author Organization [facility] Address [address] [place] [address] Care Team Providers Care Talent Scout Name Role Phone Jia Parmar MD Primary Care Provider Melina Dunne Unavailable [phone] Allergies Allergen (clinical drug ingredient) Drug/Non Drug [...] Polyneuropathy due to type 2 diabetes mellitus (526563914) Type 2 diabetes mellitus with diabetic polyneuropathy (E11.42) Active confirmed Vital Signs Blood pressure diastolic 65 mm Hg 12/23/2024 Height 5 ft 0 in in 12/23/2024 Blood pressure systolic 128 mm Hg 12/23/2024 Weight 111 lbs 12/23/2024 BMI 21.68 kg/m2 12/23/2024 Procedures Procedure Date Ordered Date Performed Result Body Sit e 62893-KCKZZJI NAIL, 6 OR MORE 02/18/2024 N/A 08243-LLOC SKIN LESIONS, OVER 4 02/18/2024 N/A 79343-MTIRIGC NAIL, 6 OR MORE 06/24/2024 N/A 17964-NKOZ SKIN LESIONS, OVER 4 06/24/2024 N/A 79843-UOHDBRR NAIL, 6 OR MORE 09/22/2024 N/A 32037-LERY SKIN LESIONS, OVER 4 09/22/2024 N/A 67670-SAKEKCT NAIL, 6 OR MORE 12/23/2024 N/A 41500-BZAY SKIN LESIONS, OVER 4 12/23/2024 N/A Encounters Encounter Location Date Provider Diagnosis [address] [address] 02/18/2024 Melina Booth Type 2 diabetes mellitus with diabetic polyneuropathy E11.42 ; Tinea unguium B35.1 and Xerosis of skin L85.[address] [address] 06/24/2024 Melina Booth Type 2 diabetes mellitus with diabetic polyneuropathy E11.42 ; Tinea unguium B35.1 ; Other hammer toe(s) (acquired), right foot M20.41 and Other hammer toe(s) (acquired), left foot M20.[address] [address] 09/22/2024 Melina Booth Type 2 diabetes mellitus with diabetic polyneuropathy E11.42 and Tinea unguium B35.[address] [address] 12/23/2024 Melina Booth Type 2 diabetes mellitus with diabetic polyneuropathy E11.42 and Tinea unguium B35.1 [facility] [address] [place] [address] 06/24/2024 Melina Booth Assessments Encounter Date Diagnosis [...] 05/03/19 17 *Sedimentation Rate-Westergren 7 *Sedimentation Rate-Westergren 12/20/201 7 X ray : Foot, left 3V 11/20/2020 X ray : Foot, left 3V 04/10/2016 X ray : Foot, left 3V 06/10/2016 X ray : Foot, right 3V 02/19/2017 X ray : Foot, right 3V 07/05/2022 X ray : Foot, right 3V 08/06/2022 X ray : Foot, right 3V 11/20/2020 X ray : Foot, right 3V 08/04/2017 37996-QNATOTS NAIL, 6 OR MORE 10/27/2017 54149-IQSNILX NAIL, 6 OR MORE 08/04/2017 41806-IPZMKPO NAIL, 6 OR MORE 05/12/2017 03264-RIBCSAS NAIL, 6 OR MORE 12/23/2024 19284-WTXCTRW NAIL, 6 OR MORE 06/24/2024 08264-LMLSYYY NAIL, 6 OR MORE 09/22/2024 49948-NOXTWWM NAIL, 6 OR MORE 02/18/2024 55297-KZUTXPL NAIL, 6 OR MORE 2018 54650-GGJEBXQ NAIL, 6 OR MORE 03/10/2017 90101-BLGPQTS NAIL, 6 OR MORE 01/06/2017 61786-VZXGLVU NAIL, 6 OR MORE 10/23/2016 36051-VFRLNPJ NAIL, 6 OR MORE 07/25/2016 52851-UQOMFXP NAIL, 6 OR MORE 05/10/2016 01259-MGAJALW NAIL, 6 OR MORE 02/14/2016 74268-NDSYOTP NAIL, 6 OR MORE 11/20/2015 92581-IPIBCQX NAIL, 6 OR MORE 07/05/2015 55886-Twbvaoef Plate 07/27/2015 45639-Jzlteqyr Plate 05/29/2016 87902-Douvmppb Plate 06/10/2016 36040- Debride <25 sq cm 06/10/2016 49260- Debride <25 sq cm 09/25/2016 59475- Debride <25 sq cm 10/23/2016 69229- Debride <25 sq cm 08/14/2015 90160-UVGW SKIN LESIONS, OVER 4 07/05/19 16 24713-GDGG SKIN LESIONS, OVER 4 11/20/19 16 97135-VBKP SKIN LESIONS, OVER 4 02/14/20 16 02287-JHVD SKIN LESIONS, OVER 4 05/11/19 78513-URSG SKIN LESIONS, OVER 4 10/24/19 82820-XSRR SKIN LESIONS, OVER 4 01/07/20 76525-BXXJ SKIN LESIONS, OVER 4 05/13/19 18 16678-DEUM SKIN LESIONS, OVER 4 03/10/19 18 35628-GQLE SKIN LESIONS, OVER 4 02/13/20 02146-IDVJ SKIN LESIONS, OVER 4 05/15/19 42025-AFVC SKIN LESIONS, OVER 4 02/18/20 80202-OXII SKIN LESIONS, OVER 4 09/23/19 11403-FPCM SKIN LESIONS, OVER 4 06/25/19 47315-CKSK SKIN LESIONS, OVER 4 12/24/19 43155-LGGO SKIN LESIONS, OVER 4 08/05/19 56181-FZAS SKIN LESIONS, OVER 4 01/13/20 18 07168-NYZO SKIN LESIONS, OVER 4 10/28/19 18 70554-BQME SKIN LESIONS, OVER 4 04/13/19 29630-KOMJ SKIN LESIONS, OVER 4 07/14/19 19 61751-IJQW SKIN LESIONS, OVER 4 10/13/19 19 04583-ETCW SKIN LESIONS, OVER 4 01/12/20 01723-LEZX SKIN LESIONS, OVER 4 04/12/19 14625-EHWI SKIN LESIONS, OVER 4 07/14/19 67678-PGGM SKIN LESIONS, OVER 4 10/18/19 90614-CWPV SKIN LESIONS, OVER 4 01/17/20 07940-SZXH SKIN LESIONS, OVER 4 04/24/19 21450-HKJL SKIN LESIONS, OVER 4 07/25/19 71014-RVGX SKIN LESIONS, OVER 4 11/21/19 98007-CPSF SKIN LESIONS, 2 TO 4 07/26/19 17 , Z1670-EDKYR/INJECT, JOINT/BURSA 0 04/13/2018 97617, J0702- Neuroma/Injection 11/20/19 16 40011-Veztfkhxu, Toes 05/10/2016 97391-Topumoixv, Toes 05/15/2016 50890-Ujycwnovj, Toes 03/12/2023 Next Appt Details Provider Name:Melina Muñoz trenton, 03/30/2025 02:45:00 PM, [address] [facility], [place], [address], Insurance Providers Payer Name Payer Address Payer Phone Subscriber Number Group Number Insured Name Patient Relationship to Insured Coverage Start Date Coverage End Date Medicare National Govt Svcs Inc [address] [place] [address] [phone] [id number] Lynda Leslie Self - patient is the insured [employer]) [address] [place] [address] [phone] [id number] Shayan Leslie Spouse - patient is [...] out- couldn't walk [facility]03[facility] [facility] [place] [facility]x [facility]k blood [facility] / c.diff 03/2020 [facility] X 3 Days, Pt sstates she fell, dx: c oncusion 05/18/2017
--- OUTSIDE RECORDS SUMMARY | 2024-12-31 12:37 | XMS_ITS | Clinical Summary ---
Author Organization [facility] Address [address] [place] [address] Care Team Providers Care Dental Hygiene Professor Name Role Phone Jia Parmar MD Primary Care Provider [phone] Social History Tobacco Use Types Packs/Day Years [...] age to complete this topic Care Teams Dental Hygiene Professor Relationship Specialty Start Date End Date Jia Parmar MD [address] [facility] [place] [address] PCP - General Special Warfare Boat Operator 12/09/18
--- OUTSIDE RECORDS SUMMARY | 2024-12-31 12:37 | XMS_ITS | Clinical Summary ---
Author Organization [facility] Address [address] [place] [address] Phone Care Team Providers Care Developer Analyst Name Role Phone Jia Parmar MD Primary [...] this topic Medical Devices Implanted Type Area Log Peeler Device Identifier Shelf Expiration Date Model / Serial / Lot Iol Softport Ao [id number] 31.0d-08/14/2016 Implanted:2016 (Quantity not on file) MEDLINE 06/30/2018 Description:OS Iol Softport Ao [id number] 30.0d-09/16/2016 Implanted:2016 (Quantity not on file) MEDLINE 07/31/2020 Description:OD Insurance MEDICARE PART A & B [employer] TOTAL CHOICE INDEMNITY MEDICARE PART A & B [employer] INDEMNITY Care Teams Developer Analyst Relationship Specialty Start Date End Date Jia Parmar MD [address] [place], [place] [phone] PCP - General Internal Medicine 10/24/16 Additional Source Comments The information contained in this document represents components of the legal health record. It is not the complete legal health record.[facility]
--- OUTSIDE RECORDS SUMMARY | 2024-12-31 12:37 | XMS_ITS | Clinical Summary ---
Author Organization [facility] Address [address] [place] [address] Care Team Providers Care Display Carver Name Role Phone Pcp, No Primary Care [...] Type Department Care Team Description 11/28/2024 Refill [facility] Physicians Department of Infectious Disease [place] [address] [place] [address] Emir Cowan MD C. difficile colitis; Infection of prosthetic knee joint, initial encounter 11/20/2024 Refill [facility] Department of Infectious Disease [place] [address] [place] [address] Emir Cowan MD C. difficile colitis from [...] Description 2025 8:15 AM EST Office Visit [facility] Physicians Department of Infectious Disease [place] [address] [place] [phone] Emir Cowan MD [address] [address] Health Maintenance Due Date Last Done Comments [...] this topic Medical Devices Implanted Type Area Consulting Sales Manager Device Identifier Shelf Expiration Date Model / Serial / Lot [id number] Insert Articular 3-4 C-H Std [id number] Knee Net Mold Uhmwpe - [id number] Implanted:Qty: 1 on 03/17/2020 by Tray Duncan MD at [facility] Joint Prosthesis Right: Knee [employer] [id number] 01004/02/2027 [id number] / / [id number] Oral Implanted:Qty: 3 Oral Tooth Procedures Procedure [...] Maintenance Insurance MEDICARE PART A & B [facility] MEDIC[facility] PART A & B [facility] Advance Directives Documents on File Type Date Recorded Patient Stabilizer Operator Expl anation Advance Directive-Scan 04/14/2024 RX AP PROVAL TO ID Advance Directive-Scan 07/01/2022 APPRO VAHE OF MEDICATION * Full Code (Latest Code Status on File) Date Activated Date Inactivated Comments 03/16/2020 7:24 PM Care Teams Display Carver Relationship Specialty Start Date End Date Pcp, No PCP - General General Medicine 10/24/20
--- OUTSIDE RECORDS SUMMARY | 2024-12-31 12:37 | XMS_ITS | Data Portability ---
Author Organization [place] [facility] Address [address] [address] Care Team Providers Care Heeler Machine Name Role Phone VENUSRENETTAJana ANN Primary Care [...] normal to inspection. Follow-up in 6 months. [email or web address] Not available 04/27/2024 11:02:21 11/26/2024 11/26/2024 79-year-old female presents for cerumen removal. Cerumen removed bilaterally. Follow-up in 6 months. [email or web address] Not available 11/26/2024 11:56:58 Plan of Treatment [...] : 4 12:49 PM (784.49) Not Available [facility] 4 02:40:30 Impacted cerumen 46160563 Active 2014 Impacted cerumen; Location: bilateral CMS Risk: low risk Cond ition: uncontrol led Not Available [facility] 4 02:40:33 Sensorine ural hearing loss of bilateral ears 463626430 Active 2015 Sensorine ural HL, bilateral ; Note: Date Diagnosed : 11/29/2014 12:59 PM (389.18) ; Start Date : 5 Sensori neural hearing loss, bilateral ; Location: bilateral Note: Date Diagnosed : 04/04/2015 10:39 AM (H90.3) Not Available [facility] 4 02:40:26 Dizziness and giddiness 964771720 Active 2015 Dizziness and giddiness ; Note: Date Diagnosed : 12/05/2015 3:08 PM (R42) Not Available [facility] 4 02:40:24 Impacted cerumen of bilateral ears 80446885822 08394 Active 2016 Impacted cerumen, bilateral ; Note: Date Diagnosed : 10/07/2016 10:53 AM (H61.23) SHANKAR RASMUSSEN PA-C [address] [place] [address], [place], [address] , [facility] - [facility] 5 11:57:00 Impacted cerumen in right ear 53626329536 59214 Active 2020 Impacted cerumen, right ear; Note: Date Diagnosed : 09/27/2020 11:30 AM (H61.21) Not Available [facility] 4 02:40:23 Impacted cerumen in left ear 77732059233 17440 Active 2022 Impacted cerumen, left ear; Note: Date Diagnosed : 04/16/2022 9:38 AM (H61.22) Not Available [facility] 4 02:40:31 Problem Notes None recorded. Procedures Surgical History Date Name Laterality Status Provider Name and Address Organization Details Recorded Time 5 Cerumen removal without microscope bilat completed SHANKAR RASMUSSEN PA-C [address] [place] [address],[address], [address], [facility] - [facility] 04/27/2024 11:02:06 4 Cerumen removal without microscope bilat completed Jose [facility] 12/29/2023 13:45:22 Imaging Results None recorded. Procedure Notes None recorded. Medical Equipment None Reported. Allergies Allergen ID Allergen Name Allergen Category Reaction Reaction Severity Criticality Documentation Date Start Date Code Code System Note Provider Name and Address Organization Details Recorded Time 06551 perfume environme nt other Not available Not available 07/15/2023 React ion: unkno wn, unspe cifie d;; Not Available [facility] 4 00:59:04 83066 wheat gluten extract food other Not available Not available 07/15/2023 99431 81 RxNorm React ion: unkno wn, unspe cifie d;; Not Available [facility] 4 00:59:04 59257 albuterol medicatio n other Not available Not available 07/15/2023 435 RxNorm React ion: unkno wn, unspe cifie d;; Not Available [facility] 4 00:59:05 69942 latex environme nt,medica tion other Not available Not available 07/15/2023 81564 91 RxNorm React ion: unkno wn, unspe cifie d;; Not Available [facility] 4 00:59:06 08095 indometha veronique medicatio n other Not available Not available 07/15/2023 5781 RxNorm React ion: unkno wn, unspe cifie d;; Not Available [facility] 4 00:59:07 01396 Product containin g penicilli n (product) medicatio n other Not available Not available 07/15/2023 26275 8001 SNOMED React ion: unkno wn, unspe cifie d;; Not Available [facility] 4 00:59:09 70664 cephalexi n medicatio n other Not available Not available 07/15/2023 2231 RxNorm React ion: unkno wn, unspe cifie d;; Not Available [facility] 4 00:59:11 41279 Substance with sulfonami de structure and antibacte rial mechanism of action (substanc e) medicatio n other Not available Not available 07/15/2023 85070 8003 SNOMED React ion: unkno wn, unspe cifie d;; Not Available [facility] 00:59:13 Medications Name Sig Start Date Stop [...] topical gel 11/26 completed Medicati on ID: [id number] D uration Value: 25 Brand Name: diclofen [...] by mouth 11/26 completed Medicati on ID: [id number] P maiarimariam d By Name: ANA [place] [...] by mouth 07/08 completed Medicati on ID: 735888 P colten d By Name: Sheryl Ochoa [...] mg capsule 11/26 completed Medicati on ID: 219161 D uration Value: 30 Brand Name: nortript yline Se nd Method: E-Prescr ibed Sub s Allowed: subs OK Medic ationGen ericName : nortript yline Not Available Not Available Not Available cyanocoba gladys (vit B-12) 1,000 mcg/mL injection solution 1000 MCG INTRAMUS CULARLY EVERY 4 WEEKS active Not Available Not Available No t Available mirtazapi ne 30 mg tablet 11/26 completed Medicati on ID: [id number] D uration Value: 90 Brand Name: mirtazap [...] mg capsule 11/26 completed Medicati on ID: [id number] D uration Value: 10 Brand Name: gabapent [...] tended release 11/26 completed Medicati on ID: 453842 D uration Value: 30 Brand Name: budesoni [...] mg tablet 11/26 completed Medicati on ID: [id number] D uration Value: 90 Brand Name: pavan abernathy Send Method: E-Prescr ibed Sub s Allowed: subs OK Speci al Instruct ion: TK 1 T PO QD [facility] : pavan le Not Available Not Available Not Available morphine 15 mg immediate release tablet TAKE 1/2 TABLET BY MOUTH FOUR TIMES A DAY NEEDED FOR PAIN 11/26 completed Not Available Not Available Not Available esomepraz ole magnesium 20 mg capsule,d elayed release 2017 active Medicati on ID: [id number] D uration Value: 90 Brand Name: esomecyndee menjivar Send Method: E-Prescr ibed Sub s Allowed: subs OK [facility] ericName : esomepra zole vikkiu m Not [...] ion: TK 1 T PO QD [facility] ericName : alprazol am Not Available Not Available Not Available rosuvasta tin 5 mg tablet TAKE 1 TABLET BY MOUTH DAILY active Not Available Not Available No t Available duloxetin e 20 mg capsule,d elayed release 20 MG ORALLY 2 TIMES A DAY active Not Available Not Available No t Available chlorhexi dine gluconate 0.12 % mouthwash 11/26 completed Medicati on ID: [id number] D uration Value: 28 Brand Name: chlorhex [...] Updated DateTime 04/27/2024 152.4 cm 19.7 kg/m2 13960.83 g Marisol Milton [facility] 04/27/2024 10:55:46 Date Recorded Body height Body mass index (BMI) Body weight Provider Name and Address Organization Details Last Updated DateTime 11/26/2024 152.4 cm 20.5 kg/m2 16562.2 g Bea Roy [facility] 11/26/2024 11:28:38 Date Recorded Body height Body mass index (BMI) Body weight Provider Name and Address Organization Details Last Updated DateTime 12/29/2023 152.4 cm 22.5 kg/m2 13426.12 g Anusha Bunch [facility] 12/29/2023 13:25:38 Social History None recorded. Functional Status None recorded. Mental Status None recorded. Family History Nothing Reported. Medical History No medical history recorded. Gynecological HistoryNo gynecological history recorded. Obstetrics History GPAL:G 0 P 0 0 0 0 Past Encounters Encounter ID Performer Location Encounter Start Date Encounter Closed Date Diagnosis/Indication Diagnosis SNOMED-CT Code Diagnosis ICD10 Code Diagnosis IMO Codes Diagnosis Note [id number] JOSE MOSHER PA-C [facility] [address] [address] 12/29/2023 13:17:17 12/29/2023 13:45:24 Impacted cerumen of bilateral ears 9096289063 006713 H61.23 [id number] SHANKAR RASMUSSEN PA-C [facility] [address] [address] 04/27/2024 10:43:24 04/27/2024 11:02:42 Impacted cerumen of bilateral ears 8455248744 158097 H61.23 [id number] SHANKAR RASMUSSEN PA-C [facility] [address] [place] [address] 11/26/2024 11:13:25 11/26/2024 11:53:53 Impacted cerumen of bilateral ears 1419500661 844102 H61.23 Health Concerns Section Related Observation LastModified by Organization Detai ls LastModified Time None Recorded Concern Status LastModified by Organization Details LastModified Time None Recorded Advance Directives Directive None Recorded Payers Insurance Date Sequence Insurance Name Policy Number Policy Oscar Covered Member ID Oscar Member ID Guarantor Name 11/26/2024 2 [facility] INDEMNITY PLAN (MEDICARE SUPPLEMENT) [id number] Shayan Leslie [id number] Lynda Leslie 11/26/2024 1 MEDICARE B-[place]: [facility] [employer] Lynda Leslie [id number] Lynda Leslie Notes Date Note Type Note Provider Name and Address Organization Details Recorded Time 12/29/2023 text/html ROS as noted in the [facility] 78-year-old female presents for evaluation of the ears. Denies change in hearing, otalgia, and otorrhea. No Q-tip use. RAQUEL LAWRENCE MD [address] [place] [address], [phone], [facility] - [facility] 12/29/2023 17:02:11 04/27/2024 text/html ROS as noted in the [facility] 79-year-old female presents for cerumen removal. No acute issues since her last visit. ANA LO MD [address] [place] [address],[address], [address], [facility] - [facility] 04/28/2024 07:28:04 11/26/2024 text/html ROS as noted in the [facility] 79-year-old female presents for cerumen removal. No acute issues since her last visit. RAQUEL LAWRENCE MD [address] [place] [address],[address], [address], [facility] - [facility] 11/26/2024 16:49:22 OBGyn Episode No OBEpisode recorded.
--- OUTSIDE RECORDS SUMMARY | 2025-02-07 20:00 | XMS_ITS | Clinical Summary ---
Author Organization Unknown Care Team Providers Care Oceanographic Meteorologist Name Role Phone JASS MONTANEZ, ANN Unavailable Unavailable JUDE CORBETT, MARSHA Unavailable Unavailable Payers Payer Name Policy Type Policy Number Effective Date Expira tion Date [place]IC[place] PDGM [id number] Problems Condition Name Condition Details Condition Category [...] OF PULMONARY EMBOLISM Active 03-03 00:00: 00 JAIL (CURRENT) USE OF ANTICOAGULAN TS Active 03-03 [...] capsule,del ayed release 10-06 00:00: 00 Yes [id number] 1 capsule 2 TIMES DAILY 1 capsule 2 TIMES DAILY (route: oral) Med Classific ation: Gastroint estinal Therapy Agents amlodipine 5 mg tablet 10-05 00:00: 00 10-15 23:59 :00 No [id number] 1 tablet DAILY 1 tablet DAILY (route: oral) Med Classific ation: Cardiovas cular Therapy Agents levothyroxi ne 50 mcg tablet 10-05 00:00: 00 Yes [id number] Per instruc tions DAILY Per instructio ns DAILY (route: oral) Med Classific ation: Endocrine trazodone 50 mg tablet 10-05 00:00: 00 Yes [id number] Per instruc tions FOR BEDTIME Per instructio ns FOR BEDTIME (route: oral) Med Classific ation: Central Nervous System Agents vancomycin 125 mg capsule 09-26 00:00: 00 Yes [id number] Per instruc tions 2 (TWO) TIMES A DAY Per instructio ns 2 (TWO) TIMES A DAY (route: oral) Med Classific ation: Anti-Infe ctive Agents duloxetine 20 mg capsule,del ayed release 09-10 00:00: 00 Yes [id number] Per instruc tions 2 TIMES A DAY Per instructio ns 2 TIMES A DAY (route: oral) Med Classific ation: Central Nervous System Agents Eliquis 5 mg tablet 09-10 00:00: 00 Yes [id number] Per instruc tions TWICE A DAY Per instructio ns TWICE A DAY (route: oral) Med Classific ation: Hematolog ical Agents cefpodoxime 200 mg tablet 10-11 00:00: 00 10-16 23:59 :00 No [id number] 1 tablet DAILY 1 tablet DAILY (route: oral) Med Classific ation: Anti-Infe ctive Agents gabapentin 100 mg capsule 10-12 00:00: 00 Yes [id number] 1 capsule 2 TIMES DAILY 1 capsule 2 TIMES DAILY (route: oral) Med Classific ation: Central Nervous System Agents latanoprost 0.005 % eye drops 10-12 00:00: 00 Yes [id number] 1 drops BEDTIME 1 drops BEDTIME (route: ophthalmic (eye)) Med Classific ation: Ophthalmi c Agents metoprolol succinate ER 50 mg tablet,exte nded release 24 hr 10-12 00:00: 00 Yes [id number] 1 tablet 2 TIMES DAILY 1 tablet 2 TIMES DAILY (route: oral) Med Classific ation: Cardiovas cular Therapy Agents morphine 15 mg immediate release tablet 10-12 00:00: 00 10-28 23:59 :00 No [id number] 1 tablet NEEDED 1 tablet NEEDED (route: oral) Med Classific ation: Analgesic , Anti-infl ammatory or Antipyret ic rosuvastati n 5 mg tablet 10-12 00:00: 00 Yes [id number] 1 tablet BEDTIME 1 tablet BEDTIME (route: oral) Med Classific ation: Cardiovas cular Therapy Agents spironolact one 25 mg tablet 10-12 00:00: 00 11-24 23:59 :00 No [id number] 0.5 tablet DAILY 0.5 tablet DAILY (route: oral) Med Classific ation: Cardiovas cular Therapy Agents timolol 0.5 % eye drops 812 00:00: 00 Yes [id number] 1 drops DAILY 1 drops DAILY (route: ophthalmic (eye)) Med Classific ation: Ophthalmi c Agents amlodipine 5 mg tablet 814 00:00: 00 Yes [id number] 1 tablet 2 TIMES DAILY 1 tablet 2 TIMES DAILY (route: oral) Med Classific ation: Cardiovas cular Therapy Agents Dilaudid 2 mg tablet 10-28 00:00: 00 Yes [id number] 1 tablet EVERY 6 HOURS 1 tablet EVERY 6 HOURS (route: oral) Med Classific ation: Analgesic , Anti-infl ammatory or Antipyret ic hydralazine 10 mg tablet 11-30 00:00: 00 12-06 23:59 :00 No [id number] 1 tablet 2 TIMES DAILY 1 tablet 2 TIMES DAILY (route: oral) Med Classific ation: Cardiovas cular Therapy Agents spironolact one 25 mg tablet 11-24 00:00: 00 Yes [id number] 1 tablet DAILY 1 tablet DAILY (route: oral) Med Classific ation: Cardiovas cular Therapy Agents hydralazine 10 mg tablet 2024-03 0 00:00: 00 Yes [id number] 20 mg 2 TIMES DAILY 20 mg 2 TIMES DAILY (route: oral) Med Classific ation: Cardiovas cular Therapy Agents Immunizations Ordered Immunization Name Filled Immunization Name Date Status Comments Refusal Reason INFLUENZA, TIV (INACTIVATED) 2024-10-30 00:00:00 INFLUENZA, TIV (INACTIVATED) 2023-11-19 00:00:00 Vital Signs Vital Name Observation Time Observation Value Commen ts Temperature 2024-12-27 10:49:00.000 98 [degF] Temperature 2024-12-20 10:32:00.000 98.2 [degF] Temperature 2024-12-13 12:16:00.000 98 [degF] Pulse 2024-12-27 10:49:00.000 72 /min Pulse 2024-12-20 10:32:00.000 72 /min Pulse 2024-12-13 12:16:00.000 68 /min O2 Saturation (%) 2024-12-27 10:49:00.000 97 % O2 Saturation (%) 2024-12-20 10:32:00.000 98 % O2 Saturation (%) 2024-12-13 12:16:00.000 97 % Respirations 2024-12-27 10:49:00.000 18 /min Respirations 2024-12-20 10:32:00.000 18 /min Respirations 2024-12-13 12:16:00.000 18 /min Systolic Blood Pressure 2024-12-27 10:49:00.000 142 mm [Hg] Systolic Blood Pressure 2024-12-20 10:32:00.000 155 mm [Hg] Systolic Blood Pressure 2024-12-13 12:16:00.000 148 mm [Hg] Diastolic Blood Pressure 2024-12-27 10:49:00.000 [...] MAINTAIN SITUATIONAL AWARENESS AND WILL NOTIFY CLINICAL LINEWORKER AND PHYSICIAN/PROVIDER WITH ANY CHANGE IN CONDITION. [code = SKILLED NURSE TO PERFORM ENVIRONMENTAL SAFETY RISK ASSESSMENT AND FALL RISK ASSESSMENT AND PROVIDE INSTRUCTION TO IMPLEMENT ENVIRONMENTAL SAFETY AND FALL PREVENTION STRATEGIES THROUGHOUT THE CERTIFICATION PERIOD. SKILLED NURSE WILL MAINTAIN SITUATIONAL AWARENESS AND WILL NOTIFY CLINICAL LINEWORKER AND PHYSICIAN/PROVIDER WITH ANY CHANGE IN CONDITION.] [...] CARE WILL BE ESTABLISHED THAT MEETS PATIENT'S LONG-TERM NEEDS AND INCLUDES PATIENT GOAL FOR HOME [...] FOR PROMPT INTERVENTION THROUGHOUT THE CERTIFICATION PERIOD. Encounters Start Date/Time End Date/Time Encounter Type Admission Type Attending [facility] Care Facility Care Department Encounter ID Discharge Date Discharge Status Discharge Condition Discharge Reason Percent Goals Met 2024-12-11 00:00:00 2025-02-08 00:00:00 Outpatient RECERTIFIC ATION [facility] [id number]
--- OUTSIDE RECORDS SUMMARY | 2025-02-07 20:00 | XMS_ITS | Clinical Summary ---
Author Organization Unknown Care Team Providers Care Thread Twister Name Role Phone JASS MONTANEZ, ANN Unavailable Unavailable JUDE CORBETT, MARSHA Unavailable Unavailable Payers Payer Name Policy Type Policy Number Effective Date Expira tion Date MEDICARE - [place] PDGM [id number] Problems Condition Name Condition Details Condition Category [...] OF PULMONARY EMBOLISM Active 03-03 00:00: 00 [facility] (CURRENT[facility] USE OF ANTICOAGULAN TS Active 03-03 [...] capsule,del ayed release 10-06 00:00: 00 Yes [id number] 1 capsule 2 TIMES DAILY 1 capsule 2 TIMES DAILY (route: oral) Med Classific ation: Gastroint estinal Therapy Agents amlodipine 5 mg tablet 10-05 00:00: 00 10-15 23:59 :00 No [id number] 1 tablet DAILY 1 tablet DAILY (route: oral) Med Classific ation: Cardiovas cular Therapy Agents levothyroxi ne 50 mcg tablet 10-05 00:00: 00 Yes [id number] Per instruc tions DAILY Per instructio ns DAILY (route: oral) Med Classific ation: Endocrine trazodone 50 mg tablet 10-05 00:00: 00 Yes [id number] Per instruc tions FOR BEDTIME Per instructio ns FOR BEDTIME (route: oral) Med Classific ation: Central Nervous System Agents vancomycin 125 mg capsule 09-26 00:00: 00 Yes [id number] Per instruc tions 2 (TWO) TIMES A DAY Per instructio ns 2 (TWO) TIMES A DAY (route: oral) Med Classific ation: Anti-Infe ctive Agents duloxetine 20 mg capsule,del ayed release 09-10 00:00: 00 Yes [id number] Per instruc tions 2 TIMES A DAY Per instructio ns 2 TIMES A DAY (route: oral) Med Classific ation: Central Nervous System Agents Eliquis 5 mg tablet 09-10 00:00: 00 Yes [id number] Per instruc tions TWICE A DAY Per instructio ns TWICE A DAY (route: oral) Med Classific ation: Hematolog ical Agents cefpodoxime 200 mg tablet 10-11 00:00: 00 10-16 23:59 :00 No [id number] 1 tablet DAILY 1 tablet DAILY (route: oral) Med Classific ation: Anti-Infe ctive Agents gabapentin 100 mg capsule 10-12 00:00: 00 Yes [id number] 1 capsule 2 TIMES DAILY 1 capsule 2 TIMES DAILY (route: oral) Med Classific ation: Central Nervous System Agents latanoprost 0.005 % eye drops 10-12 00:00: 00 Yes [id number] 1 drops BEDTIME 1 drops BEDTIME (route: ophthalmic (eye)) Med Classific ation: Ophthalmi c Agents metoprolol succinate ER 50 mg tablet,exte nded release 24 hr 10-12 00:00: 00 Yes [id number] 1 tablet 2 TIMES DAILY 1 tablet 2 TIMES DAILY (route: oral) Med Classific ation: Cardiovas cular Therapy Agents morphine 15 mg immediate release tablet 10-12 00:00: 00 10-28 23:59 :00 No [id number] 1 tablet NEEDED 1 tablet NEEDED (route: oral) Med Classific ation: Analgesic , Anti-infl ammatory or Antipyret ic rosuvastati n 5 mg tablet 10-12 00:00: 00 Yes [id number] 1 tablet BEDTIME 1 tablet BEDTIME (route: oral) Med Classific ation: Cardiovas cular Therapy Agents spironolact one 25 mg tablet 10-12 00:00: 00 11-24 23:59 :00 No [id number] 0.5 tablet DAILY 0.5 tablet DAILY (route: oral) Med Classific ation: Cardiovas cular Therapy Agents timolol 0.5 % eye drops 812 00:00: 00 Yes [id number] 1 drops DAILY 1 drops DAILY (route: ophthalmic (eye)) Med Classific ation: Ophthalmi c Agents amlodipine 5 mg tablet 814 00:00: 00 Yes [id number] 1 tablet 2 TIMES DAILY 1 tablet 2 TIMES DAILY (route: oral) Med Classific ation: Cardiovas cular Therapy Agents Dilaudid 2 mg tablet 10-28 00:00: 00 Yes [id number] 1 tablet EVERY 6 HOURS 1 tablet EVERY 6 HOURS (route: oral) Med Classific ation: Analgesic , Anti-infl ammatory or Antipyret ic hydralazine 10 mg tablet 11-30 00:00: 00 12-06 23:59 :00 No [id number] 1 tablet 2 TIMES DAILY 1 tablet 2 TIMES DAILY (route: oral) Med Classific ation: Cardiovas cular Therapy Agents spironolact one 25 mg tablet 11-24 00:00: 00 Yes [id number] 1 tablet DAILY 1 tablet DAILY (route: oral) Med Classific ation: Cardiovas cular Therapy Agents hydralazine 10 mg tablet 2024-03 0 00:00: 00 Yes [id number] 20 mg 2 TIMES DAILY 20 mg [...] MAINTAIN SITUATIONAL AWARENESS AND WILL NOTIFY CLINICAL WIND TURBINE MACHINIST AND PHYSICIAN/PROVIDER WITH ANY CHANGE IN CONDITION. [code = SKILLED NURSE TO PERFORM ENVIRONMENTAL SAFETY RISK ASSESSMENT AND FALL RISK ASSESSMENT AND PROVIDE INSTRUCTION TO IMPLEMENT ENVIRONMENTAL SAFETY AND FALL PREVENTION STRATEGIES THROUGHOUT THE CERTIFICATION PERIOD. SKILLED NURSE WILL MAINTAIN SITUATIONAL AWARENESS AND WILL NOTIFY CLINICAL WIND TURBINE MACHINIST AND PHYSICIAN/PROVIDER WITH ANY CHANGE IN CONDITION.] [...] End Date/Time Encounter Type Admission Type Attending [facility] Care Facility Care Department Encounter ID Discharge Date Discharge Status Discharge Condition Discharge Reason Percent Goals Met 2024-12-11 00:00:00 2025-02-08 00:00:00 Outpatient RECERTIFIC ATION MARSHA ROQUE [facility] [id number]
== END 2024-12-31 11:38 | disposition home or self-care (01) ==
LOC: HO.HMCC 11:03
PROVIDERS: PCP Internal Medicine; Visit Provider Internal Medicine
DX: I10 Essential (primary) hypertension (principal); F41.9 Anxiety disorder, unspecified; F32.A Depression, unspecified; M48.061 Spinal stenosis, lumbar region without neurogenic claudication; M51.369 Other intervertebral disc degeneration, lumbar region without mention of lumbar back pain or lower extremity pain

== ENCOUNTER → 2024-12-31 11:02 | Outpatient (BNVA) | payer MEDICARE, OTHER, SELFPAY | PROVIDERS: PCP Internal Medicine; Visit Provider Internal Medicine | DX: I10 Essential (primary) hypertension (principal); F41.9 Anxiety disorder, unspecified; F32.A Depression, unspecified; M48.061 Spinal stenosis, lumbar region without neurogenic claudication; M51.369 Other intervertebral disc degeneration, lumbar region without mention of lumbar back pain or lower extremity pain | CPT/HCPCS: 99212 ==

== ENCOUNTER → 2025-01-08 08:11 | Outpatient (BNV) | payer MEDICARE, OTHER, SELFPAY | PROVIDERS: PCP Internal Medicine; Visit Provider Radiology Vascular & Interventional Radiology | DX: R29.818 Other symptoms and signs involving the nervous system (principal) | CPT/HCPCS: 70551 ==

== ENCOUNTER 2025-01-08 08:54 | Outpatient (REF) | payer MEDICARE, OTHER, SELFPAY ==
--- OUTSIDE RECORDS SUMMARY | 2025-01-02 19:00 | XMS_ITS | Clinical Summary ---
Author Organization Unknown Care Team Providers Care Export Freight Specialist Name Role Phone JASS MONTANEZ, ANN Unavailable Unavailable JUDE CORBETT, MARSHA Unavailable Unavailable Payers Payer Name Policy Type Policy Number Effective Date Expira tion Date MEDICARE - NGS [place] - PDGM [id number] Problems Condition Name Condition Details Condition Category Status Onset Date Resolution Date Last Treatment Date Treating Clinician Comments HYPERTENSIVE CHRONIC KIDNEY DISEASE W STG 1-4/UNSP CHR KDNY Active 03-03 00:00: 00 TYPE 2 DIABETES MELLITUS W DIABETIC CHRONIC KIDNEY DISEASE Active 03-03 00:00: 00 CHRONIC KIDNEY DISEASE, STAGE 3 UNSPECIFIED Active 03-03 00:00: 00 HEREDITARY DEFICIENCY OF OTHER CLOTTING FACTORS Active 03-03 00:00: 00 RHEUMATOID ARTHRITIS, UNSPECIFIED Active 03-03 00:00: 00 UNSPECIFIED ASTHMA, UNCOMPLICATE [...] HYPERLIPIDEM IA, UNSPECIFIED Active 03-03 00:00: 00 SPINAL STENOSIS, LUMBAR REGION WITHOUT NEUROGENIC SINGH Active 03-03 00:00: 00 NONTOXIC GOITER, UNSPECIFIED Active 03-03 00:00: 00 GASTRO-ESOPH AGEAL REFLUX DISEASE WITHOUT ESOPHAGITIS Active 03-03 00:00: 00 PRESENCE OF UNSPECIFIED ARTIFICIAL KNEE JOINT Active 03-03 00:00: 00 ACQUIRED ABSENCE OF BOTH CERVIX AND UTERUS Active 03-03 00:00: 00 PERSONAL HISTORY OF OTHER VENOUS THROMBOSIS AND EMBOLISM Active 03-03 00:00: 00 PERSONAL HISTORY OF PULMONARY EMBOLISM Active 03-03 00:00: 00 ASSISTED (CURRENT) USE OF ANTICOAGULAN TS Active 03-03 00:00: 00 Allergies, Adverse Reactions, Alerts Allergy Name Allergy Type Status Severity Reaction(s) Onset Date Inactive Date Treating Clinician Comments INDOMETHACIN Propensity to adverse reactions Active 10-12 18:59: 58 GLUTEN Propensity to adverse reactions Active 10-12 19:01: 06 CEPHALASPORI NS Propensity to adverse reactions Active 10-12 19:00: 57 NITROFURAN Propensity to adverse reactions Active 10-12 19:01: 27 LATEX Propensity to adverse reactions Active 10-12 19:01: 16 LACTOSE MONOHYDRATE Propensity to adverse reactions Active 10-12 19:00: 47 Medications Ordered Medication Name Filled Medication Name Start Date Stop Date Current Medication? Ordering Clinician Indication Dosage Frequency Signature (SIG) Comments Components omeprazole 40 mg capsule,del ayed release 10-06 00:00: 00 Yes [id number] 1 capsule 2 TIMES DAILY 1 capsule 2 TIMES DAILY (route: oral) Med Classific ation: Gastroint estinal Therapy Agents amlodipine 5 mg tablet 10-05 00:00: 00 10-15 23:59 :00 No [id number] 1 tablet DAILY 1 tablet DAILY (route: oral) Med Classific ation: Cardiovas cular Therapy Agents levothyroxi ne 50 mcg tablet 10-05 00:00: 00 Yes [id number] Per instruc tions DAILY Per instructio ns DAILY (route: oral) Med Classific ation: Endocrine trazodone 50 mg tablet 10-05 00:00: 00 Yes [id number] Per instruc tions FOR BEDTIME Per instructio ns FOR BEDTIME (route: oral) Med Classific ation: Central Nervous System Agents vancomycin 125 mg capsule 09-26 00:00: 00 Yes [id number] Per instruc tions 2 (TWO) TIMES A DAY Per instructio ns 2 (TWO) TIMES A DAY (route: oral) Med Classific ation: Anti-Infe ctive Agents duloxetine 20 mg capsule,del ayed release 09-10 00:00: 00 Yes [id number] Per instruc tions 2 TIMES A DAY Per instructio ns 2 TIMES A DAY (route: oral) Med Classific ation: Central Nervous System Agents Eliquis 5 mg tablet 09-10 00:00: 00 Yes [id number] Per instruc tions TWICE A DAY Per instructio ns TWICE A DAY (route: oral) Med Classific ation: Hematolog ical Agents cefpodoxime 200 mg tablet 10-11 00:00: 00 10-16 23:59 :00 No [id number] 1 tablet DAILY 1 tablet DAILY (route: oral) Med Classific ation: Anti-Infe ctive Agents gabapentin 100 mg capsule 10-12 00:00: 00 Yes [id number] 1 capsule 2 TIMES DAILY 1 capsule 2 TIMES DAILY (route: oral) Med Classific ation: Central Nervous System Agents latanoprost 0.005 % eye drops 10-12 00:00: 00 Yes [id number] 1 drops BEDTIME 1 drops BEDTIME (route: ophthalmic (eye)) Med Classific ation: Ophthalmi c Agents metoprolol succinate ER 50 mg tablet,exte nded release 24 hr 10-12 00:00: 00 Yes [id number] 1 tablet 2 TIMES DAILY 1 tablet 2 TIMES DAILY (route: oral) Med Classific ation: Cardiovas cular Therapy Agents morphine 15 mg immediate release tablet 10-12 00:00: 00 10-28 23:59 :00 No [id number] 1 tablet NEEDED 1 tablet NEEDED (route: oral) Med Classific ation: Analgesic , Anti-infl ammatory or Antipyret ic rosuvastati n 5 mg tablet 10-12 00:00: 00 Yes [id number] 1 tablet BEDTIME 1 tablet BEDTIME (route: oral) Med Classific ation: Cardiovas cular Therapy Agents spironolact one 25 mg tablet 10-12 00:00: 00 11-24 23:59 :00 No [id number] 0.5 tablet DAILY 0.5 tablet DAILY (route: oral) Med Classific ation: Cardiovas cular Therapy Agents timolol 0.5 % eye drops 812 00:00: 00 Yes [id number] 1 drops DAILY 1 drops DAILY (route: ophthalmic (eye)) Med Classific ation: Ophthalmi c Agents amlodipine 5 mg tablet 814 00:00: 00 Yes [id number] 1 tablet 2 TIMES DAILY 1 tablet 2 TIMES DAILY (route: oral) Med Classific ation: Cardiovas cular Therapy Agents Dilaudid 2 mg tablet 10-28 00:00: 00 Yes [id number] 1 tablet EVERY 6 HOURS 1 tablet EVERY 6 HOURS (route: oral) Med Classific ation: Analgesic , Anti-infl ammatory or Antipyret ic hydralazine 10 mg tablet 11-30 00:00: 00 12-06 23:59 :00 No [id number] 1 tablet 2 TIMES DAILY 1 tablet 2 TIMES DAILY (route: oral) Med Classific ation: Cardiovas cular Therapy Agents spironolact one 25 mg tablet 11-24 00:00: 00 Yes [id number] 1 tablet DAILY 1 tablet DAILY (route: oral) Med Classific ation: Cardiovas cular Therapy Agents hydralazine 10 mg tablet 2024-03 0 00:00: 00 Yes [id number] 20 mg 2 TIMES DAILY 20 mg 2 TIMES DAILY (route: oral) Med Classific ation: Cardiovas cular Therapy Agents Immunizations Ordered Immunization Name Filled Immunization Name Date Status Comments Refusal Reason INFLUENZA, TIV (INACTIVATED) 2024-10-30 00:00:00 INFLUENZA, TIV (INACTIVATED) 2023-11-19 00:00:00 Vital Signs Vital Name Observation Time Observation Value Commen ts Temperature 2025-01-03 10:25:00.000 97.2 [degF] Temperature 2024-12-27 10:49:00.000 98 [degF] Temperature 2024-12-20 10:32:00.000 98.2 [degF] Temperature 2024-12-13 12:16:00.000 98 [degF] Pulse 2025-01-03 10:25:00.000 76 /min Pulse 2024-12-27 10:49:00.000 72 /min Pulse 2024-12-20 10:32:00.000 72 /min Pulse 2024-12-13 12:16:00.000 68 /min O2 Saturation (%) 2025-01-03 10:25:00.000 97 % O2 Saturation (%) 2024-12-27 10:49:00.000 97 % O2 Saturation (%) 2024-12-20 10:32:00.000 98 % O2 Saturation (%) 2024-12-13 12:16:00.000 97 % Respirations 2025-01-03 10:25:00.000 18 /min Respirations 2024-12-27 10:49:00.000 18 /min Respirations 2024-12-20 10:32:00.000 18 /min Respirations 2024-12-13 12:16:00.000 18 /min Systolic Blood Pressure 2025-01-03 10:25:00.000 138 mm [Hg] Systolic Blood Pressure 2024-12-27 10:49:00.000 142 mm [Hg] Systolic Blood Pressure 2024-12-20 10:32:00.000 155 mm [Hg] Systolic Blood Pressure 2024-12-13 12:16:00.000 148 mm [Hg] Diastolic Blood Pressure 2025-01-03 10:25:00.000 88 mm [Hg] Diastolic Blood Pressure 2024-12-27 10:49:00.000 84 mm [Hg] Diastolic Blood Pressure 2024-12-20 10:32:00.000 70 mm [Hg] Diastolic Blood Pressure 2024-12-13 12:16:00.000 62 mm [Hg] Plan of Treatment Planned Activity [...] HEALTH.] Future Scheduled Test SKILLED NU RSE TO [...] NOTIFY AGENCY OR PHYSICIAN/PROVIDER OF ANY CONCERNS.] Future Scheduled Test PATIENT GUNN S A [...] MAINTAIN SITUATIONAL AWARENESS AND WILL NOTIFY CLINICAL ORTHODONTIST AND PHYSICIAN/PROVIDER WITH ANY CHANGE IN CONDITION. [code = SKILLED NURSE TO PERFORM ENVIRONMENTAL SAFETY RISK ASSESSMENT AND FALL RISK ASSESSMENT AND PROVIDE INSTRUCTION TO IMPLEMENT ENVIRONMENTAL SAFETY AND FALL PREVENTION STRATEGIES THROUGHOUT THE CERTIFICATION PERIOD. SKILLED NURSE WILL MAINTAIN SITUATIONAL AWARENESS AND WILL NOTIFY CLINICAL ORTHODONTIST AND PHYSICIAN/PROVIDER WITH ANY CHANGE IN CONDITION.] [...] CARE.] Future Scheduled Test SKILLED NU RSE TO PROVIDE TEACHING ON SIGNS AND SYMPTOMS AND MANAGEMENT OF HYPERTENSION. [code = SKILLED NURSE TO PROVIDE TEACHING ON SIGNS AND SYMPTOMS AND MANAGEMENT OF HYPERTENSION.] Future Scheduled Test SKILLED NU RSE FOR [...] REPORT.] Future Scheduled Test SKILLED NU RSE TO [...] Future Scheduled Test SKILLED NU RSE FOR INSTRUCTION/ REINFORCEMENT OF NEEDS RELATED TO NUTRITION/HYDRATION. [code = SKILLED NURSE FOR INSTRUCTION/ REINFORCEMENT OF NEEDS RELATED TO NUTRITION/HYDRATION.] Future Scheduled Test SKILLED NU RSE FOR O/A OF SELF-CARE DEFICITS AND TO PROVIDE TEACHING RELATED TO SAFE PROVISION OF ADLS. [code = SKILLED NURSE FOR O/A OF SELF-CARE DEFICITS AND TO PROVIDE TEACHING RELATED TO SAFE PROVISION OF ADLS.] Future Scheduled Test SKILLED NU RSE FOR O/A AND SKILLED TEACHING RELATED TO SIGNS AND SYMPTOMS OF INFECTION AND INFECTION CONTROL MEASURES. [code = SKILLED NURSE FOR O/A AND SKILLED TEACHING RELATED TO SIGNS AND SYMPTOMS OF INFECTION AND INFECTION CONTROL MEASURES.] Goal 2024-12-06 Patient Goal - GET STRONGER NO FATIGUE Goal Patient Goal - IMPROVED BP Goal Provider Goal - A PLAN OF CARE WILL BE ESTABLISHED THAT MEETS PATIENT'S [facility] NEEDS AND INCLUDES PATIENT GOAL FOR HOME HEALTH. Goal Provider Goal - PATIENT/CAREGIVER WILL VERBALIZE UNDERSTANDING OF EDUCATION PROVIDED ON MEDICATIONS BY THE END OF THE CERTIFICATION PERIOD. Goal Provider Goal - PATIENT WILL HAVE [...] OF THE EPISODE. Goal Provider Goal - PATIENT / CAREGIVER [...] Goal Provider Goal - PATIENT/CAREGIVER WILL DEMONSTRATE ABILITY TO SELF MANAGE NEEDS RELATED TO NUTRITION/HYDRATION THROUGHOUT THE EPISODE. Goal Provider Goal - PATIENT/CAREGIVER WILL VERBALIZE/DEMONSTRATE UNDERSTANDING OF SAFE PROVISION OF ADLS BY THE END OF THE CERTIFICATION PERIOD. Goal Provider Goal - PATIENT/CAREGIVER WILL VERBALIZE/DEMONSTRATE UNDERSTANDING OF S/S OF INFECTION AND INFECTION CONTROL MEASURES. SIGNS AND SYMPTOMS OF INFECTION WILL BE IDENTIFIED AND PHYSICIAN NOTIFIED FOR PROMPT INTERVENTION THROUGHOUT THE CERTIFICATION PERIOD. Reason for Visit INDEPENDENT IN THE HOME Encounters Start Date/Time End Date/Time Encounter Type Admission Type Attending [facility] Care Facility Care Department Encounter ID Discharge Date Discharge Status Discharge Condition Discharge Reason Percent Goals Met 2024-12-11 00:00:00 2025-01-03 00:00:00 Outpatient RECERTIFIC ATION MARSHA ROQUE [facility] [id number] 2025-01-03 00:00:00 DISCHARGE TO HOME OR SELF CARE INDEPENDEN T IN THE HOME GOALS MET ( ONLY) 100.00
--- NOTE | ~2025-01-08 | MR_ITS ---
CLINICAL HISTORY: R29.818 - Other symptoms and signs involving the nervous system --- Additional Notes or Special Instructions: CEREBRAL INFARCT MR Brain without gadolinium Comparison: None provided Findings: No restricted diffusion. No intra-axial mass or hemorrhage. No midline shift. No hydrocephalus. Vascular flow voids are intact. There is prominent T2 signal prolongation in the periventricular white matter. [id number] diffuse volume loss. The orbits are normal. The sinuses and mastoid air cells are clear. No focal bone lesion. IMPRESSION: No acute findings. Prominent chronic changes. This document has been electronically signed by: Pieter Jimenez MD on 01/08/2025 09:58:45
--- OUTSIDE RECORDS SUMMARY | 2025-01-08 08:56 | XMS_ITS | Clinical Summary ---
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 Joint Prosthesis Right: Knee [employer] [id number] 04/02/2027 [id number] / / [id number] Oral Implanted:Qty: 3 Oral Tooth Procedures Procedure [...] 1):S1-S61, 2009 Estimated Average Glucose 117 mg/dL [facility] 03/16/2020 8:41 PM EST 03/16/2020 9:00 PM EST us [facility] BLOOD ORDERABLES Final Result HOSPITAL LAB from Last 3 Months or Most Recently Relevant to Health Maintenance Insurance MEDICARE PART A & B [facility] MEDICARE PART A & B [facility] Advance Directives Documents on File Type Date Recorded Patient Terrazzo Installer Expl anation Advance Directive-Scan 04/14/2024 RX AP PROVAL TO ID Advance Directive-Scan 07/01/2022 APPRO VAHE OF MEDICATION * Full Code (Latest Code Status on File) Date Activated Date Inactivated Comments 03/16/2020 7:24 PM Care Teams Baking Factory Worker Relationship Specialty Start Date End Date Pcp, No PCP - General General Medicine 10/24/20
--- OUTSIDE RECORDS SUMMARY | 2025-01-08 08:57 | XMS_ITS | Data Portability ---
Author Organization [place] - [facility] Address [address] [address] Care Team Providers Care Livestock Trader Name Role Phone VENUSRENETTAJana ANN Primary Care [...] normal to inspection. Follow-up in 6 months. [email or web address] Not available 04/27/2024 11:02:21 11/26/2024 11/26/2024 79-year-old female presents for cerumen removal. Cerumen removed bilaterally. Follow-up in 6 months. Not available 11/26/2024 11:56:58 Plan of Treatment [...] : 4 12:49 PM (784.49) Not Available [facility] 4 02:40:30 Impacted cerumen 37528264 Active 2014 Impacted cerumen; Location: bilateral CMS Risk: low risk Cond ition: uncontrol led Not Available [facility] 4 02:40:33 Sensorine ural hearing loss of bilateral ears 617442451 Active 2015 Sensorine ural HL, bilateral ; Note: Date Diagnosed : 11/29/2014 12:59 PM (389.18) ; Start Date : 5 Sensori neural hearing loss, bilateral ; Location: bilateral Note: Date Diagnosed : 04/04/2015 10:39 AM (H90.3) Not Available [facility] 4 02:40:26 Dizziness and giddiness 099380386 Active 2015 Dizziness and giddiness ; Note: Date Diagnosed : 12/05/2015 3:08 PM (R42) Not Available [facility] 4 02:40:24 Impacted cerumen of bilateral ears 71494856486 00888 Active 2016 Impacted cerumen, bilateral ; Note: Date Diagnosed : 10/07/2016 10:53 AM (H61.23) SHANKAR RASMUSSEN PA-C [address] [place] [address], [place], [address] , [facility] - [facility] 5 11:57:00 Impacted cerumen in right ear 47095761864 63103 Active 2020 Impacted cerumen, right ear; Note: Date Diagnosed : 09/27/2020 11:30 AM (H61.21) Not Available [facility] 4 02:40:23 Impacted cerumen in left ear 65520463874 89753 Active 2022 Impacted cerumen, left ear; Note: Date Diagnosed : 04/16/2022 9:38 AM (H61.22) Not Available [facility] 4 02:40:31 Problem Notes None recorded. Procedures Surgical History Date Name Laterality Status Provider Name and Address Organization Details Recorded Time 5 Cerumen removal without microscope bilat completed SHANKAR RASMUSSEN PA-C [address] [place] [address],[address], [address], [facility] - [facility] 04/27/2024 11:02:06 4 Cerumen removal without microscope bilat completed Jose Mosher [facility] 12/29/2023 13:45:22 Imaging Results None recorded. Procedure Notes None recorded. Medical Equipment None Reported. Allergies Allergen ID Allergen Name Allergen Category Reaction Reaction Severity Criticality Documentation Date Start Date Code Code System Note Provider Name and Address Organization Details Recorded Time 63972 perfume environme nt other Not available Not available 07/15/2023 React ion: unkno wn, unspe cifie d;; Not Available [facility] 4 00:59:04 85277 wheat gluten extract food other Not available Not available 07/15/2023 48406 81 RxNorm React ion: unkno wn, unspe cifie d;; Not Available [facility] 4 00:59:04 88618 albuterol medicatio n other Not available Not available 07/15/2023 435 RxNorm React ion: unkno wn, unspe cifie d;; Not Available [facility] 4 00:59:05 58826 latex environme nt,medica tion other Not available Not available 07/15/2023 66501 91 RxNorm React ion: unkno wn, unspe cifie d;; Not Available [facility] 4 00:59:06 74901 indometha veronique medicatio n other Not available Not available 07/15/2023 5781 RxNorm React ion: unkno wn, unspe cifie d;; Not Available [facility] 4 00:59:07 26862 Product containin g penicilli n (product) medicatio n other Not available Not available 07/15/2023 71350 8001 SNOMED React ion: unkno wn, unspe cifie d;; Not Available [facility] 4 00:59:09 10515 cephalexi n medicatio n other Not available Not available 07/15/2023 2231 RxNorm React ion: unkno wn, unspe cifie d;; Not Available [facility] 4 00:59:11 53554 Substance with sulfonami de structure and antibacte rial mechanism of action (substanc e) medicatio n other Not available Not available 07/15/2023 46364 8003 SNOMED React ion: unkno wn, unspe cifie d;; Not Available [facility] 00:59:13 Medications Name Sig Start Date Stop [...] topical gel 11/26 completed Medicati on ID: [id number] D uration Value: 25 Brand Name: diclofen [...] by mouth 11/26 completed Medicati on ID: [id number] P maiarimariam d By Name: ANA [place] [...] by mouth 07/08 completed Medicati on ID: [id number] P colten d By Name: Sheryl Ochoa [...] mg capsule 11/26 completed Medicati on ID: [id number] D uration Value: 30 Brand Name: nortript yline Se nd Method: E-Prescr ibed Sub s Allowed: subs OK Medic ationGen ericName : nortript yline Not Available Not Available Not Available cyanocoba gladys (vit B-12) 1,000 mcg/mL injection solution 1000 MCG INTRAMUS CULARLY EVERY 4 WEEKS active Not Available Not Available No t Available mirtazapi ne 30 mg tablet 11/26 completed Medicati on ID: [id number] D uration Value: 90 Brand Name: mirtazap [...] mg capsule 11/26 completed Medicati on ID: [id number] D uration Value: 10 Brand Name: gabapent [...] tended release 11/26 completed Medicati on ID: [id number] D uration Value: 30 Brand Name: budesoni [...] mg tablet 11/26 completed Medicati on ID: [id number] D uration Value: 90 Brand Name: pavan abernathy Send Method: E-Prescr ibed Sub s Allowed: subs OK Speci al Instruct ion: TK 1 T PO QD [facility] : pavan le Not Available Not Available Not Available morphine 15 mg immediate release tablet TAKE 1/2 TABLET BY MOUTH FOUR TIMES A DAY NEEDED FOR PAIN 11/26 completed Not Available Not Available Not Available esomepraz ole magnesium 20 mg capsule,d elayed release 2017 active Medicati on ID: [id number] D uration Value: 90 Brand Name: esomecyndee menjivar Send Method: E-Prescr ibed Sub s Allowed: subs OK [facility] ericName : esomepra zole vikkiu m [...] ion: TK 1 T PO QD [facility] ericName : alprazol am Not Available Not Available Not Available rosuvasta tin 5 mg tablet TAKE 1 TABLET BY MOUTH DAILY active Not Available Not Available No t Available duloxetin e 20 mg capsule,d elayed release 20 MG ORALLY 2 TIMES A DAY active Not Available Not Available No t Available chlorhexi dine gluconate 0.12 % mouthwash 11/26 completed Medicati on ID: [id number] D uration Value: 28 Brand Name: chlorhex [...] Updated DateTime 04/27/2024 152.4 cm 19.7 kg/m2 28711.83 g Marisol Milton [facility] 04/27/2024 10:55:46 Date Recorded Body height Body mass index (BMI) Body weight Provider Name and Address Organization Details Last Updated DateTime 11/26/2024 152.4 cm 20.5 kg/m2 27030.2 g Bea Roy [facility] 11/26/2024 11:28:38 Date Recorded Body height Body mass index (BMI) Body weight Provider Name and Address Organization Details Last Updated DateTime 12/29/2023 152.4 cm 22.5 kg/m2 84877.12 g Anusha Bunch [facility] 12/29/2023 13:25:38 Social History None recorded. Functional Status None recorded. Mental Status None recorded. Family History Nothing Reported. Medical History No medical history recorded. Gynecological HistoryNo gynecological history recorded. Obstetrics History GPAL:G 0 P 0 0 0 0 Past Encounters Encounter ID Performer Location Encounter Start Date Encounter Closed Date Diagnosis/Indication Diagnosis SNOMED-CT Code Diagnosis ICD10 Code Diagnosis IMO Codes Diagnosis Note [id number] JOSE MOSHER PA-C [facility] [address] [address] 12/29/2023 13:17:17 12/29/2023 13:45:24 Impacted cerumen of bilateral ears 9309678941 023423 H61.23 [id number] SHANKAR RASMUSSEN PA-C [facility] [address] [address] 04/27/2024 10:43:24 04/27/2024 11:02:42 Impacted cerumen of bilateral ears 6401930198 384776 H61.23 [id number] SHANKAR RASMUSSEN PA-C [facility] [address] [place] [address] 11/26/2024 11:13:25 11/26/2024 11:53:53 Impacted cerumen of bilateral ears 8135507538 516878 H61.23 Health Concerns Section Related Observation LastModified by Organization Detai ls LastModified Time None Recorded Concern Status LastModified by Organization Details LastModified Time None Recorded Advance Directives Directive None Recorded Payers Insurance Date Sequence Insurance Name Policy Number Policy Oscar Covered Member ID Oscar Member ID Guarantor Name 11/26/2024 2 [facility]ICARE SUPPLEMENT) [id number] Shayan Leslie [id number] Lynda Leslie 11/26/2024 1 MEDICARE B-[place]: [facility] SERVICES Lynda Leslie [id number] Lynda Leslie Notes Date Note Type Note Provider Name and Address Organization Details Recorded Time 12/29/2023 text/html ROS as noted in the [facility] 78-year-old female presents for evaluation of the ears. Denies change in hearing, otalgia, and otorrhea. No Q-tip use. RAQUEL LAWRENCE MD [address] [place] [address], [phone], [facility] - [facility] 12/29/2023 17:02:11 04/27/2024 text/html ROS as noted in the [facility] 79-year-old female presents for cerumen removal. No acute issues since her last visit. ANA LO MD [address] [place] [address],[address], [address], [facility] - [facility] 04/28/2024 07:28:04 11/26/2024 text/html ROS as noted in the [facility] 79-year-old female presents for cerumen removal. No acute issues since her last visit. RAQUEL LAWRENCE MD [address] [place] [address],[address], [address], [facility] - [facility] 11/26/2024 16:49:22 OBGyn Episode No OBEpisode recorded.
--- OUTSIDE RECORDS SUMMARY | 2025-01-08 08:57 | XMS_ITS | Continuity of Care Document ---
Author Organization [place] - [facility], [facility] Address [address] [place] [address] Care Team Providers Care Statistical Clerk Advertising Name Role Phone ANN REGAN Primary Care Provider Assessment Encounter Date Assessment Date Assessment LastModified by Organization Details LastModified Time 11/26/2024 11/26/2024 79-year-old female presents for cerumen removal. Cerumen removed bilaterally. Follow-up in 6 months. snow Not available 11/26/2024 11:56:58 Plan of Treatment [...] : 4 12:49 PM (784.49) Not Available [facility] 4 02:40:30 Impacted cerumen 81673557 Active 2014 Impacted cerumen; Location: bilateral CMS Risk: low risk Cond ition: uncontrol led Not Available [facility] 4 02:40:33 Sensorine ural hearing loss of bilateral ears 504807290 Active 2015 Sensorine ural HL, bilateral ; Note: Date Diagnosed : 11/29/2014 12:59 PM (389.18) ; Start Date : 5 Sensori neural hearing loss, bilateral ; Location: bilateral Note: Date Diagnosed : 04/04/2015 10:39 AM (H90.3) Not Available [facility] 4 02:40:26 Dizziness and giddiness 661758431 Active 2015 Dizziness and giddiness ; Note: Date Diagnosed : 12/05/2015 3:08 PM (R42) Not Available [facility] 4 02:40:24 Impacted cerumen of bilateral ears 44543188462 68631 Active 2016 Impacted cerumen, bilateral ; Note: Date Diagnosed : 10/07/2016 10:53 AM (H61.23) SHANKAR RASMUSSEN PA-C [address] [facility],[place] [address], [place], [address] , [facility] - [facility] 5 11:57:00 Impacted cerumen in right ear 19998141076 16947 Active 2020 Impacted cerumen, right ear; Note: Date Diagnosed : 09/27/2020 11:30 AM (H61.21) Not Available [facility] 4 02:40:23 Impacted cerumen in left ear 11301852392 71562 Active 2022 Impacted cerumen, left ear; Note: Date Diagnosed : 04/16/2022 9:38 AM (H61.22) Not Available [facility] 4 02:40:31 Problem Notes None recorded. Procedures Surgical History Date Name Laterality Status Provider Name and Address Organization Details Recorded Time 5 Cerumen removal without microscope bilat completed SHANKAR RASMUSSEN PA-C [address] [facility], [place], [address], [facility] - [facility] 04/27/2024 11:02:06 4 Cerumen removal without microscope bilat completed Suly Tobin [place] - [facility] 12/29/2023 13:45:22 Imaging Results None recorded. Procedure Notes None recorded. Medical Equipment None Reported. Allergies Allergen ID Allergen Name Allergen Category Reaction Reaction Severity Criticality Documentation Date Start Date Code Code System Note Provider Name and Address Organization Details Recorded Time 69419 perfume environme nt other Not available Not available 07/15/2023 React ion: unkno wn, unspe cifie d;; Not Available [facility] 4 00:59:04 13049 wheat gluten extract food other Not available Not available 07/15/2023 20597 81 RxNorm React ion: unkno wn, unspe cifie d;; Not Available [facility] 4 00:59:04 51926 albuterol medicatio n other Not available Not available 07/15/2023 435 RxNorm React ion: unkno wn, unspe cifie d;; Not Available [facility] 4 00:59:05 25866 latex environme nt,medica tion other Not available Not available 07/15/2023 06601 91 RxNorm React ion: unkno wn, unspe cifie d;; Not Available [facility] 4 00:59:06 30275 indometha veronique medicatio n other Not available Not available 07/15/2023 5781 RxNorm React ion: unkno wn, unspe cifie d;; Not Available [facility] 4 00:59:07 47580 Product containin g penicilli n (product) medicatio n other Not available Not available 07/15/2023 40154 8001 SNOMED React ion: unkno wn, unspe cifie d;; Not Available [facility] 4 00:59:09 84065 cephalexi n medicatio n other Not available Not available 07/15/2023 2231 RxNorm React ion: unkno wn, unspe cifie d;; Not Available [facility] 4 00:59:11 68308 Substance with sulfonami de structure and antibacte rial mechanism of action (substanc e) medicatio n other Not available Not available 07/15/2023 10296 8003 SNOMED React ion: unkno wn, unspe cifie d;; Not Available [facility] 4 00:59:13 Medications Name Sig Start [...] topical gel 11/26 completed Medicati on ID: [id number] D uration Value: 25 Brand Name: diclofen [...] by mouth 11/26 completed Medicati on ID: [id number] Isela mooney By Name: ANA Carolina nd Name: meclizin [...] by mouth 07/08 completed Medicati on ID: 774292 P maiarimariam d By Name: Sheryl Ochoa nd Name: [...] mg capsule 11/26 completed Medicati on ID: [id number] D uration Value: 30 Brand Name: nortript yline Se nd Method: E-Prescr ibed Sub s Allowed: subs OK Medic ationGen ericName : nortript yline Not Available Not Available Not Available cyanocoba gladys (vit B-12) 1,000 mcg/mL injection solution 1000 MCG INTRAMUS CULARLY EVERY 4 WEEKS active Not Available Not Available No t Available mirtazapi ne 30 mg tablet 11/26 completed Medicati on ID: 428476 D uration Value: 90 Brand Name: mirtazap [...] mg capsule 11/26 completed Medicati on ID: [id number] D uration Value: 10 Brand Name: gabapent in Send Method: E-Prescr ibed Sub s Allowed: subs OK Speci al Instruct ion: TK 1 C PO TID QHS FOR 10 DAYS Errol Muriel Dinh me: gabapent in Not Available Not Available [...] tended release 11/26 completed Medicati on ID: [id number] D uration Value: 30 Brand Name: budjessieoni de Send Method: E-Prescr ibed Sub s [...] mg tablet 11/26 completed Medicati on ID: [id number] D uration Value: 90 Brand Name: ropiniro [...] elayed release 2017 active Medicati on ID: 183276 D uration Value: 90 Brand Name: asad menjivar Send Method: E-Prescr ibed Sub s Allowed: subs OK [facility] esomepra jocy florezu m Not Available Not Available Not Available [...] ion: TK 1 T PO QD Medic [facility] ericName : alprazol am Not Available Not Available Not Available rosuvasta tin 5 mg tablet TAKE 1 TABLET BY MOUTH DAILY active Not Available Not Available No t Available duloxetin e 20 mg capsule,d elayed release 20 MG ORALLY 2 TIMES A DAY active Not Available Not Available No t Available chlorhexi dine gluconate 0.12 % mouthwash 11/26 completed Medicati on ID: [id number] D uration Value: 28 Brand Name: chlorhex idine gluconat e Send Method: E-Prescr ibed Sub s Allowed: subs OK [facility] : chlorhex idine gluconat e Not [...] Updated DateTime 11/26/2024 152.4 cm 20.5 kg/m2 06006.2 g Bea Jimenez [facility] 11/26/2024 11:28:38 Social History None recorded. Functional Status None recorded. Mental Status None recorded. Family History Nothing Reported. Medical History No medical history recorded. Gynecological HistoryNo gynecological history recorded. Obstetrics History GPAL:G 0 P 0 0 0 0 Past Encounters Encounter ID Performer Location Encounter Start Date Encounter Closed Date Diagnosis/Indication Diagnosis SNOMED-CT Code Diagnosis ICD10 Code Diagnosis IMO Codes Diagnosis Note [id number] SHANKAR RASMUSSEN PA-C [facility] [address] [address] 11/26/2024 11:13:25 11/26/2024 11:53:53 Impacted cerumen of bilateral ears [id number] 065277 H61.23 Health Concerns Section Related Observation LastModified by Organization Detai ls LastModified Time None Recorded Concern Status LastModified by Organization Details LastModified Time None Recorded Payers Encounter Date Sequence Insurance Name Policy Number Policy Oscar Covered Member ID Oscar Member ID Guarantor Name 11/26/2024 2 [facility] INDEMNITY PLAN (MEDICARE SUPPLEMENT) [id number] Shayan Leslie [id number] Lynda Leslie 11/26/2024 1 MEDICARE B-[place]: [facility] [employer] Lynda Leslie [id number] Lynda Leslie Notes Date Note Type Note Provider Name and Address Organization Details Recorded Time 11/26/2024 text/html ROS as noted in the HPI 79-year-old female presents for cerumen removal. No acute issues since her last visit. RAQUEL LAWRENCE MD [address] [place] [address], [address], [facility] - [facility] 11/26/2024 16:49:22 OBGyn Episode No OBEpisode recorded.
--- OUTSIDE RECORDS SUMMARY | 2025-01-08 08:57 | XMS_ITS | Patient Health Record ---
Author Organization [facility] Address [address] [facility] [place] [address] Care Team Providers Care Loading Dock Helper Name Role Phone Jia Parmar MD Primary Care Provider Melina Dunne Unavailable [phone] Allergies Allergen (clinical drug ingredient) Drug/Non Drug [...] Polyneuropathy due to type 2 diabetes mellitus (244098115) Type 2 diabetes mellitus with diabetic polyneuropathy (E11.42) Active confirmed Vital Signs Blood pressure diastolic 65 mm Hg 12/23/2024 Height 5 ft 0 in in 12/23/2024 Blood pressure systolic 128 mm Hg 12/23/2024 Weight 111 lbs 12/23/2024 BMI 21.68 kg/m2 12/23/2024 Procedures Procedure Date Ordered Date Performed Result Body Sit e 07571-GOAFEPF NAIL, 6 OR MORE 02/18/2024 N/A 74587-BPGH SKIN LESIONS, OVER 4 02/18/2024 N/A 61528-SDRQNQY NAIL, 6 OR MORE 06/24/2024 N/A 06939-RWCA SKIN LESIONS, OVER 4 06/24/2024 N/A 97441-MJZVNTL NAIL, 6 OR MORE 09/22/2024 N/A 13781-MEGZ SKIN LESIONS, OVER 4 09/22/2024 N/A 65882-YVRCTZG NAIL, 6 OR MORE 12/23/2024 N/A 65531-LMJH SKIN LESIONS, OVER 4 12/23/2024 N/A Encounters Encounter Location Date Provider Diagnosis [address] [address] 02/18/2024 Melina Booth Type 2 diabetes mellitus with diabetic polyneuropathy E11.42 ; Tinea unguium B35.1 and Xerosis of skin L85.[address] [address] 06/24/2024 Melina Booth Type 2 diabetes mellitus with diabetic polyneuropathy E11.42 ; Tinea unguium B35.1 ; Other hammer toe(s) (acquired), right foot M20.41 and Other hammer toe(s) (acquired), left foot M20.[address] [address] 09/22/2024 Melina Booth Type 2 diabetes mellitus with diabetic polyneuropathy E11.42 and Tinea unguium B35.[address] [address] 12/23/2024 Melina Booth Type 2 diabetes mellitus with diabetic polyneuropathy E11.42 and Tinea unguium B35.1 [facility] [address] [place] [address] 06/24/2024 Melina Booth Assessments Encounter Date Diagnosis [...] X ray : Foot, right 3V 08/04/2017 78976-VBEQXCP NAIL, 6 OR MORE 10/27/2017 28321-MFCRZDU NAIL, 6 OR MORE 08/04/2017 74439-YIYWZJO NAIL, 6 OR MORE 05/12/2017 99253-CVQWZXB NAIL, 6 OR MORE 12/23/2024 28025-DSJJXDG NAIL, 6 OR MORE 06/24/2024 92348-YNWVEIO NAIL, 6 OR MORE 09/22/2024 90066-BHHOTNX NAIL, 6 OR MORE 02/18/2024 69365-NVGUZTF NAIL, 6 OR MORE 2018 29906-AKNFUQN NAIL, 6 OR MORE 03/10/2017 30763-OFELTFY NAIL, 6 OR MORE 01/06/2017 14483-FGRHYSQ NAIL, 6 OR MORE 10/23/2016 07923-WLVVHJC NAIL, 6 OR MORE 07/25/2016 31695-AWQUIYD NAIL, 6 OR MORE 05/10/2016 39543-CCTGYUP NAIL, 6 OR MORE 02/14/2016 32083-BUECXEQ NAIL, 6 OR MORE 11/20/2015 95813-VCLUWUT NAIL, 6 OR MORE 07/05/2015 20757-Cyayonqs Plate 07/27/2015 65823-Oxjicoao Plate 05/29/2016 54369-Nheplkjy Plate 06/10/2016 93022- Debride <25 sq cm 06/10/2016 89970- Debride <25 sq cm 09/25/2016 21984- Debride <25 sq cm 10/23/2016 77940- Debride <25 sq cm 08/14/2015 50688-LCYM SKIN LESIONS, OVER 4 07/05/19 16 67580-ZRAW SKIN LESIONS, OVER 4 11/20/19 16 43243-UVVH SKIN LESIONS, OVER 4 02/14/20 16 35459-QLMS SKIN LESIONS, OVER 4 05/11/19 67676-UTUC SKIN LESIONS, OVER 4 10/24/19 54820-LLQN SKIN LESIONS, OVER 4 01/07/20 50469-LFBF SKIN LESIONS, OVER 4 05/13/19 18 66259-TYSM SKIN LESIONS, OVER 4 03/10/19 18 18135-LWQW SKIN LESIONS, OVER 4 02/13/20 64928-INLZ SKIN LESIONS, OVER 4 05/15/19 53055-WDBD SKIN LESIONS, OVER 4 02/18/20 03323-AGLF SKIN LESIONS, OVER 4 09/23/19 89453-JXVK SKIN LESIONS, OVER 4 06/25/19 70752-QCGD SKIN LESIONS, OVER 4 12/24/19 40390-ZUTI SKIN LESIONS, OVER 4 08/05/19 72103-QKWK SKIN LESIONS, OVER 4 01/13/20 18 45664-YYFW SKIN LESIONS, OVER 4 10/28/19 18 15970-HCFD SKIN LESIONS, OVER 4 04/13/19 66278-SAAQ SKIN LESIONS, OVER 4 07/14/19 19 05750-ZCTA SKIN LESIONS, OVER 4 10/13/19 19 46565-ZFBL SKIN LESIONS, OVER 4 01/12/20 75268-QVKJ SKIN LESIONS, OVER 4 04/12/19 77644-GGBI SKIN LESIONS, OVER 4 07/14/19 59586-XIVU SKIN LESIONS, OVER 4 10/18/19 56162-HOOB SKIN LESIONS, OVER 4 01/17/20 65236-JGYT SKIN LESIONS, OVER 4 04/24/19 01178-DVVE SKIN LESIONS, OVER 4 07/25/19 46020-HJVD SKIN LESIONS, OVER 4 11/21/19 80752-BLKM SKIN LESIONS, 2 TO 4 07/26/19 17 , E6371-KZTIE/INJECT, JOINT/BURSA 0 04/13/2018 45943, J0702- Neuroma/Injection 11/20/19 16 01830-Qedthvweh, Toes 05/10/2016 57690-Pwympzlfl, Toes 05/15/2016 97593-Saztcxfti, Toes 03/12/2023 Next Appt Details Provider Name:Melina Muñoz trenton, 03/30/2025 02:45:00 PM, [address] [facility], [place], [address], Insurance Providers Payer Name Payer Address Payer Phone Subscriber Number Group Number Insured Name Patient Relationship to Insured Coverage Start Date Coverage End Date Medicare National Govt Sv[employer] Inc [address] [place] [address] [id number] Lynda Leslie Self - patient is the insured [employer] [address] [place] [address] [phone] [id number] Shayan Leslie Spouse - patient is [...] out- couldn't walk [facility]03[facility] [facility] [place] [facility]x ba ck blood clot / c.diff 03/2020 [facility] X 3 Days, Pt sstates she fell, dx: c oncusion 05/18/2017
--- OUTSIDE RECORDS SUMMARY | 2025-01-08 08:57 | XMS_ITS | Clinical Summary ---
Author Organization [facility] Address [address] [place] [address] Care Team Providers Care Director Of Corporate Sponsorships Name Role Phone Jia Parmar MD Primary Care Provider [phone] Social History Tobacco Use Types Packs/Day Years [...] age to complete this topic Care Teams Director Of Corporate Sponsorships Relationship Specialty Start Date End Date Jia Parmar MD [address] [facility] [place] [address] PCP - General Chemist Food 12/09/18
--- OUTSIDE RECORDS SUMMARY | 2025-01-08 08:57 | XMS_ITS | Clinical Summary ---
Author Organization [facility] Address [address] [place] [address] Phone Care Team Providers Care Automobile Assembly Supervisor Name Role Phone Jia Parmar MD Primary Care Provider [phone] Allergies Active Allergy Reactions Criticality Noted Date [...] this topic Medical Devices Implanted Type Area It Compliance Analyst Device Identifier Shelf Expiration Date Model / Serial / Lot Iol Softport Ao [id number] 31.0d-08/14/2016 Implanted:2016 (Quantity not on file) MEDLINE 06/30/2018 Description:OS Iol Softport Ao [id number] 30.0d-09/16/2016 Implanted:2016 (Quantity not on file) MEDLINE 07/31/2020 Description:OD Insurance MEDICARE PART A & B [employer] TOTAL CHOICE INDEMNITY MEDICARE PART A [employer] B [employer] TOTAL CHOICE INDEMNITY Care Teams Automobile Assembly Supervisor Relationship Specialty Start Date End Date Jia Parmar MD [address] [place], [place] [id number] PCP - General Internal Medicine 10/24/16 Additional Source Comments The information contained in this document represents components of the legal health record. It is not the complete legal health record.[facility]
--- OUTSIDE RECORDS SUMMARY | 2025-01-08 08:57 | XMS_ITS | Clinical Summary ---
Author Organization [facility] Address [address] [place] [address] Phone Care Team Providers Care Dispute Coordinator Name Role Phone Jia Parmar MD Primary Care Provider [phone] Allergies Active Allergy Reactions Criticality Noted Date [...] EDT - 10/10/2024 12:32 PM EDT Emergency [facility] Emergency [address] [place] [address] Fede Ontiveros MD Kokkinos, Erika, MD Landry, [...] reflex microscopic (10/09/2024 2:18 PM EDT) Specific [place] Urine 1.013 1.003 - 1.030 LAB URINALYSIS - AUTOMATED METHOD 10/09/2024 2:53 PM EDT [facility] pH, Urine 6.0 5.0 - 8.0 pH LAB URINALYSIS - AUTOMATED METHOD 10/09/2024 2:53 PM EDT [facility] Leukocytes, Urine Negative Negative LAB URINALYSIS - AUTOMATED METHOD 10/09/2024 2:53 PM EDT [facility] Nitrite, Urine Negative Negative LAB URINALYSIS - AUTOMATED METHOD 10/09/2024 2:53 PM EDT [facility] Protein, Urine Negative <=Trace mg/dL LAB URINALYSIS - AUTOMATED METHOD 10/09/2024 2:53 PM EDT [facility] Glucose, Urine Negative Negative mg/dL LAB URINALYSIS - AUTOMATED METHOD 10/09/2024 2:53 PM EDT [facility] Ketones, Urine Negative Negative mg/dL LAB URINALYSIS - AUTOMATED METHOD 10/09/2024 2:53 PM EDT [facility] Urobilinogen, Urine 0.2 0.2 - 1.0 mg/dL LAB URINALYSIS - AUTOMATED METHOD 10/09/2024 2:53 PM EDT [facility] Bilirubin, Urine Negative Negative LAB URINALYSIS - AUTOMATED METHOD 10/09/2024 2:53 PM EDT [facility] Blood, Urine Negative Negative LAB URINALYSIS - AUTOMATED METHOD 10/09/2024 2:53 PM T [facility] Urine Urine specimen obtained by clean catch procedure / Unknown Non-blood Collection / Unknown 10/09/2024 2:18 PM EDT 10/09/2024 2:26 PM EDT us Fede Ontiveros MD LAB URINE ORDERABLES Final R esult [facility] [address] [place] [address], * (ABNORMAL) Drug abuse screen 8a panel, urine (10/09/2024 2:18 PM EDT) Amphetamine Screen, Ur Negative Negative LAB CHEMISTRY METHOD 08/09/202 5 3:33 PM EDT [facility] Comment:Certain OTC medicati ons containing ephedrine, phenylephrine, pseudoephedrine and phenylpropanolamine can cause false positive results. Barbiturate Screen, Ur Negative Negative LAB CHEMISTRY METHOD 5 3:33 PM EDT [facility] Benzodiazepine Screen, Ur Negative Negative LAB CHEMISTRY METHOD 5 3:33 PM EDT [facility] Cocaine Screen, Ur Negative Negative LAB CHEMISTRY METHOD 5 3:33 PM EDT [facility] Opiate Screen, Ur Positive(A ) Negative LAB CHEMISTRY METHOD 5 3:[facility] Cannabinoid (THC) Screen, Ur Negative Negative LAB CHEMISTRY METHOD 5 3:33 PM T [facility] Comment:Specimens from patie nts taking pantoprazole sodium (Protonix) have been shown to produce false positive results. Oxycodone Screen, Ur Negative Negative LAB CHEMISTRY METHOD 5 3:33 PM EDT [facility] Fentanyl, Ur Negative Negative LAB CHEMISTRY METHOD 5 3:33 PM [facility] Urine Urine specimen obtained by clean catch procedure / Unknown Non-blood Collection / Unknown 10/09/2024 2:18 PM EDT 10/09/2024 2:27 PM EDT Narrative [facility] - 10/09/2024 3:33 PM EDT [...] MD LAB URINE ORDERABLES Final R esult [facility] [address] [place] [address], [place] [phone] * Troponin I high sensitivity (10/09/2024 12:54 PM EDT) Only the most recent of2 resultswithin the time period is included. High Sensitivity Troponin I 9 <=54 ng/L LAB CHEMISTRY METHOD 10/09/2024 1:36 PM EDT [facility] Blood Venous blood specimen / Unknown Venipuncture / Unknown 10/09/2024 12:54 PM EDT 10/09/2024 1:00 PM EDT Narrative [facility] - 10/09/2024 1:36 PM EDT High levels of biotin in samples may falsely decrease hsTroponin values. Use caution when interpreting hsTroponin results in patients taking biotin who exhibit renal impairment (eGFR <60) or in patients taking more than 20 mg/day of biotin. us Fede Ontiveros MD LAB BLOOD ORDERABLES Final R esult Performing Organization Address [facility] Co de Phone Number [facility] [address] [place] [address], [place] [phone] * CT Head wo Contrast (10/09/2024 12:05 [...] Signed Date: 10/09/2024 12:20 ET Workstation ID: [id number] Transcribed By: Self Edit Transcribed Date: 10/09/2024 [...] Signed Date: 10/09/2024 12:20 ET Workstation ID: [id number] Transcribed By: Self Edit Transcribed Date: 10/09/2024 12:17 ET us Fede Ontiveros MD IMG CT PROCEDURES Final Resu lt * (ABNORMAL) CBC auto differential (10/09/2024 11:40 AM EDT) WBC 11.0(H) 4.8 - 10.8 K/mcL LAB HEMETOLOGY METHOD 10/09/2024 11:53 AM [facility] RBC 3.70(L) 3.80 - 4.80 M/mcL LAB HEMETOLOGY METHOD 10/09/2024 11:53 AM [facility] Hemoglobin 11.0(L) 11.5 - 16.0 g/dL LAB HEMETOLOGY METHOD 10/09/2024 11:53 AM [facility] Hematocrit 33.3(L) 35.0 - 47.0 % LAB HEMETOLOGY METHOD 10/09/2024 11:53 AM [facility] MCV 90.0 79.0 - 98.0 FL LAB HEMETOLOGY METHOD 10/09/2024 11:53 AM [facility] MCH 29.7 27.0 - 32.0 pcg LAB HEMETOLOGY METHOD 10/09/2024 11:53 AM [facility] MCHC 33.0 32.0 - 37.0 g/dL LAB HEMETOLOGY METHOD 10/09/2024 11:53 AM [facility] RDW 12.5 11.0 - 15.0 % LAB HEMETOLOGY METHOD 10/09/2024 11:53 AM [facility] Platelets 229 130 - 400 K/mcL LAB HEMETOLOGY METHOD 10/09/2024 11:53 AM [facility] MPV 10.8 7.0 - 11.0 FL LAB HEMETOLOGY METHOD 10/09/2024 11:53 AM [facility] NRBC 0.0 <1.0 % LAB HEMETOLOGY METHOD 10/09/2024 11:53 AM [facility] NRBC Absolute 0.00 <0.10 K/mcL LAB HEMETOLOGY METHOD 10/09/2024 11:53 AM [facility] Neutrophils Relative 75.1 % LAB HEMETOLOGY METHOD 10/09/2024 11:53 AM [facility] Lymphocytes Relative 17.1 % LAB HEMETOLOGY METHOD 10/09/2024 11:53 AM [facility] Monocytes Relative 5.4 % LAB HEMETOLOGY METHOD 10/09/2024 11:53 AM [facility] Eosinophils Relative 1.4 % LAB HEMETOLOGY METHOD 10/09/2024 11:53 AM [facility] Basophils Relative 0.5 % LAB HEMETOLOGY METHOD 10/09/2024 11:53 AM [facility] Immature Granulocytes Relative 0.5 % LAB HEMETOLOGY METHOD 10/09/2024 11:53 AM [facility] Neutrophils Absolute 8.23(H) 1.50 - 7.00 K/mcL LAB HEMETOLOGY METHOD 10/09/2024 11:53 AM [facility] Lymphocytes Absolute 1.87 1.00 - 5.00 K/mcL LAB HEMETOLOGY METHOD 10/09/2024 11:53 AM [facility] Monocytes Absolute 0.59 0.20 - 1.00 K/mcL LAB HEMETOLOGY METHOD 10/09/2024 11:53 AM EDT [facility] Eosinophils Absolute 0.15 0.00 - 0.50 K/mcL LAB HEMETOLOGY METHOD 10/09/2024 11:53 AM EDT [facility] Basophils Absolute 0.06 0.00 - 0.20 K/[facility] LAB HEMETOLOGY METHOD 10/09/2024 11:53 AM EDT [facility] Immature Granulocytes Absolute 0.05(H) 0.00 - 0.03 K/[facility] LAB HEMETOLOGY METHOD 10/09/2024 11:53 AM EDT [facility] Blood Venous blood specimen / Unknown Venipuncture / Unknown 10/09/2024 11:40 AM EDT 10/09/2024 11:46 AM EDT Fede Ontiveros MD LAB BLOOD ORDERABLES Final R esult Performing Organization Address City/[facility]/ZIP Co de Phone Number [facility] [address] [place] [address], * (ABNORMAL) Thyroid Stimulating Hormone (TSH) (10/09/2024 11:40 AM EDT) TSH 0.30(L) 0.40 - 4.00 mcIU/mL LAB CHEMISTRY METHOD 10/09/2024 12:47 PM EDT [facility] Blood Venous blood specimen / Unknown Venipuncture / Unknown 10/09/2024 11:40 AM EDT 10/09/2024 11:47 AM EDT Fede Ontiveros MD LAB BLOOD ORDERABLES Final R esult Performing Organization Address City/[facility]/ZIP Co de Phone Number [facility] [address] [place] [address], [place] [phone] * Phosphorus (10/09/2024 11:40 AM EDT) Phosphorus 4.2 2.5 - 4.5 mg/dL LAB CHEMISTRY METHOD 10/09/2024 12:16 PM EDT [facility] Blood Venous blood specimen / Unknown Venipuncture / Unknown 10/09/2024 11:40 AM EDT 10/09/2024 11:47 AM EDT us Fede Ontiveros MD LAB BLOOD ORDERABLES Final R esult [facility] [address] [place] [address], [place] [phone] * Magnesium (10/09/2024 11:40 AM EDT) [facility] Magnesium 2.0 1.9 - 2.6 mg/dL LAB CHEMISTRY METHOD 10/09/2024 12:16 PM EDT [facility] Blood Venous blood specimen / Unknown Venipuncture / Unknown 10/09/2024 11:40 AM EDT 10/09/2024 11:47 AM EDT us Fede Ontiveros MD LAB BLOOD ORDERABLES Final R esult [facility] [address] [place] [address], [place] [phone] * Creatine kinase (10/09/2024 11:40 AM EDT) Total CK 103 22 - 269 unit/L LAB CHEMISTRY METHOD 10/09/2024 12:16 PM EDT [facility] Blood Venous blood specimen / Unknown Venipuncture / Unknown 10/09/2024 11:40 AM EDT 10/09/2024 11:47 AM EDT us Fede Ontiveros MD LAB BLOOD ORDERABLES Final R esult [facility] [address] [place] [address], * (ABNORMAL) Comprehensive Metabolic Panel (CMP) (10/09/2024 11:40 AM EDT) Sodium 139 133 - 145 mmol/L LAB CHEMISTRY METHOD 10/09/2024 12:[facility] Potassium 4.4 3.5 - 5.5 mmol/L LAB CHEMISTRY METHOD 10/09/2024 12:16 PM [facility] Chloride 109 96 - 110 mmol/L LAB CHEMISTRY METHOD 10/09/2024 12:16 PM [facility] CO2 26 21 - 32 mmol/L LAB CHEMISTRY METHOD 10/09/2024 12:16 PM [facility] Anion Gap 4 3 - 11 LAB CHEMISTRY METHOD 10/09/2024 12:16 PM [facility] Glucose 129(H) 70 - 100 mg/dL LAB CHEMISTRY METHOD 10/09/2024 12:16 PM [facility] BUN 31(H) 5 - 25 mg/dL LAB CHEMISTRY METHOD 10/09/2024 12:16 PM [facility] Creatinine 1.22(H) 0.50 - 1.10 mg/dL LAB CHEMISTRY METHOD 10/09/2024 12:16 PM [facility] eGFR 45(L) >=60 mL/min/1. 73m2 LAB CHEMISTRY METHOD 10/09/2024 12:16 PM [facility] Comment:Calculation based on the Chronic Kidney Disease Epidemiology Collaboration (CKD-EPI) equation refit without adjustment for race. BUN/Creatinine Ratio 25.4 LAB CHEMISTRY METHOD 10/09/2024 12:16 PM [facility] Calcium 9.2 8.5 - 10.5 mg/dL LAB CHEMISTRY METHOD 10/09/2024 12:16 PM EDT [facility] AST (SGOT) 31 10 - 42 unit/L LAB CHEMISTRY METHOD 10/09/2024 12:16 PM EDT [facility] ALT (SGPT) 41 10 - 60 unit/L LAB CHEMISTRY METHOD 10/09/2024 12:16 PM EDT [facility] Alkaline Phosphatase 65 42 - 121 unit/L LAB CHEMISTRY METHOD 10/09/2024 12:16 PM EDT [facility] Total Protein 6.2 6.0 - 8.0 g/dL LAB CHEMISTRY METHOD 10/09/2024 12:16 PM EDT [facility] Albumin 3.6 3.2 - 5.0 g/dL LAB CHEMISTRY METHOD 10/09/2024 12:16 PM EDT [facility] Total Bilirubin 0.5 0.0 - 1.4 mg/dL LAB CHEMISTRY METHOD 10/09/2024 12:16 PM EDT [facility] Blood Venous blood specimen / Unknown Venipuncture / Unknown 10/09/2024 11:40 AM EDT 10/09/2024 11:47 AM EDT Fede Ontiveros MD LAB BLOOD ORDERABLES Final R esult [facility] [address] [place] [address], * 12-Lead ECG (10/09/2024 11:31 AM EDT) Ventricular Rate ECG 68 BPM GEMUSE Atrial Rate 68 BPM GEMUSE P-R Interval 168 ms GEMUSE QRS Duration 84 ms GEMUSE Q-T Interval 438 ms GEMUSE QTc 465 ms GEMUSE P Wave [place] -11 degrees GEMUSE R [place] -13 degrees GEMUSE T [place] 19 degrees GEMUSE ECG Interpretation Normal sinus rhythm Septal infarct (cited on or before 09-DEC-2020) Inferior infarct (cited on or before 13-FEB-2019) When compared with ECG of 09-OCT-2021 10:59, No significant change was found Confirmed by JANEE GUADALUPE ([id number]) on 10/11/2024 12:20:23 AM GEMUSE 10/09/2024 11:3 1 AM EDT 10/11/2024 12:20 AM EDT us Feed Ontiveros MD ECG ORDERABLES Final Result DOMINIC * LETICIA DEXA AXIAL SKELETON (11/19/2022 11:36 AM EDT) Anatomical Region Laterality Modality Mammography 11/19/2022 8:53 AM EDT Narrative 11/19/2022 11:36 AM EDT [facility] Diagnostic Imaging Department [address] [place], [place] [id number] Patient: VILLAHEBER /Age/Sex: 1945 - 77 - F Unit#: [id number] [facility] Ordering Physician: JOSE SAMUELS MD Leticia [...] probability of hip fracture of 4.7%. Code 17799 Dictating Physician: CLIVE BREWER MD Electronically Signed by: CLIVE BREWER MD Dic Date/Time: 11/19/22 1133 Sign date/Time: 11/19/22 1136 Procedure Note Clive Brewer MD - 04/08/2023 [facility] Diagnostic Imaging Department [address] [place] [address] Patient: HEBER LESLIE Apoorva /Age/Sex: 1945 - 77 - F Unit#: [id number] Location/Status: SPD[facility]AM/REG CLI Mnemonic[facility] Ordering Physician: JOSE SAMUELS MD Leticia [...] density of the femurs bilaterally is 0.799 gm/ek5jzqtf is 79% of that of young normals [...] probability of hip fracture of 4.7%. 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
== END 2025-01-08 08:55 | disposition home or self-care (01) ==
LOC: HO.MRI 08:54
PROVIDERS: PCP Internal Medicine; Visit Provider Internal Medicine
DX: I63.9 Cerebral infarction, unspecified (principal); R29.818 Other symptoms and signs involving the nervous system
CPT/HCPCS: 70551

== ENCOUNTER 2025-02-08 10:43 | Outpatient (REF) | payer MEDICARE, OTHER, SELFPAY ==
[2025-02-08 13:50] LABS: MANUAL DIFF FLAG NO
[2025-02-08 14:00] LABS: Hematocrit 36.2 % (37.0-47.0); Hemoglobin 11.6 g/dl (12.0-16.0); Imm Gran Abs Auto 0.03 X10*3/uL (0.00-0.03); Imm Gran Pct Auto 0.3 % (0.0-0.4); Lymphocytes Absolute Auto 2.5 X10*3/uL (1.2-4.9); Mean Corpuscular HGB Conc 32.0 g/dl (31.0-35.0); Mean Corpuscular Hemoglobin 30.0 pg (27.0-33.0); Mean Corpuscular Volume 93.5 fL (80.0-98.0); NRBC Abs Auto 0.000 X10*3/uL (0.0-0.012); NRBC Pct Auto 0.0 /100WBC (0.0-0.2); Platelet Count 242 X10*3/uL (160-400); Red Blood Count 3.87 X10*6/uL (4.20-5.50); White Blood Count 9.4 X10*3/uL (4.8-10.8)
[2025-02-08 15:19] LABS: Alanine Aminotransferase 77 U/L (0-31); Albumin Level 4.7 g/dL (3.5-5.0); Alkaline Phosphatase 66 U/L (39-117); Anion Gap 14 (12-20); Aspartate Amino Transferase 46 U/L (5-31); Blood Urea Nitrogen 38 mg/dL (9-16); Calcium 9.2 mg/dL (8.4-10.2); Carbon Dioxide 21 mmol/L (22-29); Chloride 109 mmol/L (96-108); Estimated Glomerular Filt Rate 26; Potassium 6.7 mmol/L (3.3-5.1); Sodium 137 mmol/L (135-145); Total Protein 6.8 g/dL (6.5-8.0)
== END 2025-02-08 10:44 | disposition home or self-care (01) ==
LOC: HO.HMGCLDS 10:43
PROVIDERS: PCP Internal Medicine; Visit Provider Internal Medicine
DX: I10 Essential (primary) hypertension (principal); D68.2 Hereditary deficiency of other clotting factors; E78.5 Hyperlipidemia, unspecified; F32.A Depression, unspecified; F41.9 Anxiety disorder, unspecified; N18.30 Chronic kidney disease, stage 3 unspecified; Z13.1 Encounter for screening for diabetes mellitus
CPT/HCPCS: 36415; 80053; 82306; 83036; 84443; 84481; 85025; 99212

== ENCOUNTER 2025-02-08 10:43 | Outpatient (AMB) | payer MEDICARE, OTHER, SELFPAY ==
--- NOTE | 2025-02-08 10:46 | A.OFFPC_ITS ---
Vital Signs 02/08/25 10:47 Height 5 ft Weight 104 lb BMI 20.3 BP 126/70 Blood Pressure Location Lt brachial Position Sitting Respiration 17 Pulse 72 Pulse Source Pulse Oximeter Temp 98.0 F Temp Source Oral Pulse Oximetry (%) 96 Oxygen Delivery Method Room Air Intake Visit Reasons: 1 mo follow up Intake Note: Patient is here today for 1 month follow up visit. Allergies cephalexin (CEPHALEXIN) Allergy (Severe, Verified 02/08/25 10:50) ANAPHYLAXIS nitrofurantoin (From MACRODANTIN) Allergy (Severe, Verified 02/08/25 10:50) ANAPHYLAXIS albuterol (ALBUTEROL) Allergy (Intermediate, Verified 02/08/25 10:50) ITCHING Sulfa (Sulfonamide Antibiotics) (SULFA (SULFONAMIDE ANTIBIOTICS)) Allergy (Intermediate, Verified 02/08/25 10:50) ITCHING acetaminophen (Percocet) Allergy (Unknown, Verified 02/08/25 10:50) itchy amoxicillin Allergy (Unknown, Verified 02/08/25 10:50) itchy and diarrhea doxycycline Allergy (Unknown, Verified 02/08/25 10:50) itchy gluten (GLUTEN) Allergy (Unknown, Verified 02/08/25 10:50) Ciliac disease indomethacin (Indocin) Allergy (Unknown, Verified 02/08/25 10:50) n/a lactose Allergy (Unknown, Verified 02/08/25 10:50) severe diarrhea latex Allergy (Unknown, Verified 02/08/25 10:50) itchy rash oxycodone (Percocet) Allergy (Unknown, Verified 02/08/25 10:50) itchy olmesartan Adverse Reaction (Intermediate, Verified 02/08/25 10:50) diarrhea DAIRY PRODUCTS Allergy (Unknown, Uncoded 02/08/25 10:50) severe diarrhea ventolin tabs Allergy (Unknown, Uncoded 02/08/25 10:50) Palpitations Medication List - Last Reconciled 02/08/25 by Jia Parmar MD amlodipine 5 mg PO BID apixaban (Eliquis) 5 mg PO BID blood pressure test kit-medium As directed blood sugar diagnostic As directed cefpodoxime 200 mg PO DAILY cyanocobalamin (vitamin B-12) 1,000 mcg IM Q4W duloxetine 20 mg PO BID gabapentin 200 mg (2 x 100 mg) PO TID hydralazine 20 mg orally 2 times a day; hydromorphone 2 mg PO Q6H insulin syringe-needle U-100 use for monthly injections lancets (Accu-Chek Fastclix Lancet Drum) Test blood sugar once a day latanoprost 0.005% 1 drp ophthalmic (eye) BEDTIME levothyroxine 50 mcg PO DAILY loperamide 2 mg PO BID PRN metoprolol succinate ER 75 mg (1.5 x 50 mg) PO BID omeprazole 40 mg PO BID rosuvastatin 5 mg PO DAILY spironolactone 25 mg PO DAILY timolol maleate 0.5% 1 drp ophthalmic (eye) QAM trazodone 50 mg PO BEDTIME vancomycin 125 mg PO BID Tobacco use date assessed: 02/08/25 Dental Screening Dental Screen Date: 03/11/24 HPI 1 mo follow up HPI Details Patient presents for the follow-up of hypertension chronic kidney disease stage III hyperlipidemia. She is feeling better gained 4 lb and reports improved appetite and physical activity [facility] Medical History (Updated 02/08/25 @ 11:20 by Jia Parmar MD) CKD (chronic kidney disease) stage 3, GFR 30-59 ml/min Anxiety and depression Lumbar spinal stenosis due to adjacent segment disease after fusion procedure Hx of rheumatoid arthritis Hx of ectopic Back pain Arthritis Thyroid disease Diabetes Peptic ulcer Fatty liver Asthma On anticoagulant therapy DVT (deep venous thrombosis) Pulmonary embolism Osteopenia Minor skin laceration Annual physical exam Vitamin B 12 deficiency Vitamin D deficiency Chronic infection of knee joint prosthesis Diarrhea Knee pain Hypothyroidism Normal Pap smear Degenerative joint disease (DJD) of lumbar spine Microscopic colitis GERD (gastroesophageal reflux disease) Factor V deficiency Depression Colitis without complication Hyperglycemia Hyperlipidemia HTN (hypertension) Surgical History History of dental surgery History of release of tendon Hx of hammer toe correction History of bunionectomy of left great toe Hx of cholecystectomy H/O colonoscopy H/O cervical spine surgery History of lumbar surgery History of carpal tunnel syndrome History of knee replacement History of vagotomy History of total abdominal hysterectomy and bilateral salpingo-oophorectomy Family History Father Bladder cancer Mother Hypertension Social History Household Members: Spouse Housing: House Are you a primary home health care respiratory therapist to a significant other at home: No Do you presently have visiting nurse or other home services: No Alcohol intake: never Patient Tobacco Use Status: Never used Tobacco e-Cigarette/Vaping Use: Never Used Second Hand Smoke Exposure: Yes service: No Current occupational status: retired Cognitive needs: No Hearing needs: No Vision needs: Yes Questionnaire Thrive Questionnaire Date Thrive assessed: 03/08/24 I am a: Patient What is your living situation today?: I have a steady place to live Within the past 12 months, did the food you bought not last and you didn't have the money to get more?: Never true Within the past 12 months, did you worry whether your food would run out before you got money to buy more?: Never true Do you have trouble paying for medicines?: No Do you have trouble getting transportation to medical appointments?: No Do you have trouble paying your heating and electricity bill?: No Do you have trouble taking care of your child, family member or friend?: No Do you have trouble with day-to-day activities such as bathing, preparing meals, shopping, managing finances, etc.?: No Are you currently unemployed and looking for a job?: No Are you interested in more education?: No Please select the resources that you would like help with: None Currently or been in a relationship where the following occur: No concerns reported THRIVE Score: 0 ROSALINDA-7 AMB Questionnaire ROSALINDA-7 Date ROSALINDA - 7 assessed: 03/11/24 Source: Developed by Drs. Andrew Pompa, Tasha Barnard, Jonathan Minor and colleagues, with an educational farooq from [employer] Review of Systems Const All systems reviewed & are unremarkable except as noted in HPI and below Eyes Reports no additional complaints Card Reports no additional complaints Resp Reports no additional complaints GI Reports no additional complaints Reports no additional complaints Physical exam (Primary Care) Vital Signs: Last Vital Signs Temp 98.0 F 02/08/25 10:47 Pulse 72 02/08/25 10:47 Resp 17 02/08/25 10:47 BP 126/70 02/08/25 10:47 Pulse Ox 96 02/08/25 10:47 Oxygen Delivery Method Room Air 02/08/25 10:47 BMI result Body Mass Index 20.3 Tobacco/Smoking Status: Tobacco use Status Tobacco use date assessed 02/08/25 02/08/25 10:53 Patient Tobacco Use Status Never used Tobacco 02/08/25 10:49 e-Cigarette/Vaping Use Never Used 02/08/25 10:49 Thrive Assessment: Date of Thrive Assessment Date Thrive assessed 03/08/24 02/08/25 10:49 Currently or been in a relationship where the following occur: No concerns reported Const General: no acute distress HENMT Face and sinus: Yes normal facial exam Eyes General: appearance normal, both eyes and all related structures Neck Neck: Yes supple Resp Effort & Inspection: normal respiratory effort Auscultation: clear to auscultation bilaterally Cardio Rhythm: regular rhythm Heart sounds: S1 normal heart sound present and S2 normal heart sound present Coding Level of Care Code Est Pt Level 4 (87217) Diagnoses HTN (hypertension) I10 Factor V deficiency D68.2 Hyperlipidemia E78.5 CKD (chronic kidney disease) stage 3, GFR 30-59 ml/min N18.30 Anxiety and depression F41.9; F32.A Assessment & Plan Assessment & Plan (1) HTN (hypertension): Code(s): I10 - Essential (primary) hypertension Category: Medical Plan: Continue current medications (2) Factor V deficiency: Comment: on Eliquis f/u Code(s): D68.2 - Hereditary deficiency of other clotting factors Category: Medical Plan: Continue Eliquis (3) Hyperlipidemia: Code(s): E78.5 - Hyperlipidemia, unspecified Category: Medical Plan: Continue statin (4) CKD (chronic kidney disease) stage 3, GFR 30-59 ml/min: Comment: Renal ultrasound 4 mm nonobstructive right kidney stone 07/2023 Code(s): N18.30 - Chronic kidney disease, stage 3 unspecified Category: Medical Plan: Monitor renal function avoid nephrotoxins follow-up in 2 months (5) Anxiety and depression: Code(s): F41.9 - Anxiety disorder, unspecified; F32.A - Depression, unspecified Category: Medical Plan: Improved on duloxetine Orders: Orders Complete Blood Count Auto Diff Today D68.2 - Hereditary deficiency of other clotting factors, I10 - Essential (primary) hypertension Triiodothyronine T3 Free Today D68.2 - Hereditary deficiency of other clotting factors, I10 - Essential (primary) hypertension Comprehensive Met. Panel Today D68.2 - Hereditary deficiency of other clotting factors, I10 - Essential (primary) hypertension Hemoglobin A1c Today D68.2 - Hereditary deficiency of other clotting factors, I10 - Essential (primary) hypertension TSH reflex Free T4 Today D68.2 - Hereditary deficiency of other clotting factors, I10 - Essential (primary) hypertension Vitamin D 25-OH Total Today D68.2 - Hereditary deficiency of other clotting factors, I10 - Essential (primary) hypertension
[2025-02-08 10:47] VITALS: BP 126/70; PULSE 72; RESP 17; TEMP 36.7; O2SAT 96; BMI 20.3
== END 2025-02-08 11:14 | disposition home or self-care (01) ==
LOC: HO.HMCC 10:44
PROVIDERS: PCP Internal Medicine; Visit Provider Internal Medicine
DX: I10 Essential (primary) hypertension (principal); D68.2 Hereditary deficiency of other clotting factors; E78.5 Hyperlipidemia, unspecified; N18.30 Chronic kidney disease, stage 3 unspecified; F41.9 Anxiety disorder, unspecified; F32.A Depression, unspecified

== ENCOUNTER 2025-02-09 10:04 | Outpatient (AMB) | payer MEDICARE, OTHER, SELFPAY ==
--- NOTE | 2025-02-09 10:06 | MHC.OFFVIS ---
Intake Visit Reasons: medication followup Intake Note: Patient is a 80 year old female here for medication follow up PT States that the medication did help her with pain Allergies cephalexin (CEPHALEXIN) Allergy (Severe, Verified 02/09/25 10:08) ANAPHYLAXIS nitrofurantoin (From MACRODANTIN) Allergy (Severe, Verified 02/09/25 10:08) ANAPHYLAXIS albuterol (ALBUTEROL) Allergy (Intermediate, Verified 02/09/25 10:08) ITCHING Sulfa (Sulfonamide Antibiotics) (SULFA (SULFONAMIDE ANTIBIOTICS)) Allergy (Intermediate, Verified 02/09/25 10:08) ITCHING acetaminophen (Percocet) Allergy (Unknown, Verified 02/09/25 10:08) itchy amoxicillin Allergy (Unknown, Verified 02/09/25 10:08) itchy and diarrhea doxycycline Allergy (Unknown, Verified 02/09/25 10:08) itchy gluten (GLUTEN) Allergy (Unknown, Verified 02/09/25 10:08) Ciliac disease indomethacin (Indocin) Allergy (Unknown, Verified 02/09/25 10:08) n/a lactose Allergy (Unknown, Verified 02/09/25 10:08) severe diarrhea latex Allergy (Unknown, Verified 02/09/25 10:08) itchy rash oxycodone (Percocet) Allergy (Unknown, Verified 02/09/25 10:08) itchy olmesartan Adverse Reaction (Intermediate, Verified 02/09/25 10:08) diarrhea DAIRY PRODUCTS Allergy (Unknown, Uncoded 02/08/25 10:50) severe diarrhea ventolin tabs Allergy (Unknown, Uncoded 02/08/25 10:50) Palpitations HPI Comments Details: History of Present Illness The patient is an 80-year-old female presenting for chronic pain management. She reports her pain medication is effective and does not cause her to feel drowsy or She has been pacing her medication use and has three pills left. The patient reports significant activity limitations, stating there are many things she can no longer do, including activities in the kitchen, due to loss of balance. When the pain becomes severe, she sits and rests for about half an hour until it subsides. She typically takes one pill as needed. Patient did not respond to right SI joint injection in March of 2024 or right L2 TFESI in June of 2024. Patient did not respond and morphine 7.5 mg. She did see relief with hydromorphone 2 mg status post surgery. Patient has been using hydromorphone 2 mg sparingly for severe breakthrough pain and reports it has been very helpful. She is requesting a refill. Pain Description - Quality: The patient describes the pain as severe. - Location: She reports pain in the back side of the stomach. - Exacerbating factors: A tough day can worsen the pain. - Relieving factors: The pain is alleviated by her medication and by sitting down to rest for about half an hour. - Functional limitations: The patient feels restricted and is unable to do many activities, including tasks in the kitchen, because she loses her balance. [facility] Medical History (Updated 02/09/25 @ 12:38 by DIVYA Adams) CKD (chronic kidney disease) stage 3, GFR 30-59 ml/min Anxiety and depression Lumbar spinal stenosis due to adjacent segment disease after fusion procedure Hx of rheumatoid arthritis Hx of ectopic Back pain Arthritis Thyroid disease Diabetes Peptic ulcer Fatty liver Asthma On anticoagulant therapy DVT (deep venous thrombosis) Pulmonary embolism Osteopenia Minor skin laceration Annual physical exam Vitamin B 12 deficiency Vitamin D deficiency Chronic infection of knee joint prosthesis Diarrhea Knee pain Hypothyroidism Normal Pap smear Degenerative joint disease (DJD) of lumbar spine Microscopic colitis GERD (gastroesophageal reflux disease) Factor V deficiency Depression Colitis without complication Hyperglycemia Hyperlipidemia HTN (hypertension) Surgical History History of dental surgery History of release of tendon Hx of hammer toe correction History of bunionectomy of left great toe Hx of cholecystectomy H/O colonoscopy H/O cervical spine surgery History of lumbar surgery History of carpal tunnel syndrome History of knee replacement History of vagotomy History of total abdominal hysterectomy and bilateral salpingo-oophorectomy Family History Father Bladder cancer Mother Hypertension Social History Household Members: Spouse Housing: House Are you a primary day care assistant to a significant other at home: No Do you presently have visiting nurse or other home services: No Alcohol intake: never Patient Tobacco Use Status: Never used Tobacco e-Cigarette/Vaping Use: Never Used Second Hand Smoke Exposure: Yes service: No Current occupational status: retired Cognitive needs: No Hearing needs: No Vision needs: Yes Review of Systems Narrative Review of Systems - Neurological: Reports loss of balance. - Abdominal: Reports pain in the back side of the stomach. Physical Exam Exam Exam: Physical Exam Lumbar Spine: Examination of her lumbar spine, there is no visible swelling or deformity. She is tender to lower lumbar facets. She has full range of motion of the lumbar spine. She does have an increase in pain with facet loading. Special Tests: Lhermittes sign was negative Heel Toe walk is normal Left straight leg raise: Negative Right straight leg raise: Negative Special tests Ab test is negative Ganslen's test is negative SI Joint compression test negative Faustino test negative Piriformis stretch is negative Lower Extremities: Full range of motion bilateral lower extremities. No calf pain or edema. Neuro: Sensation: Intact to lower extremities bilaterally Strength L2 (Psoas): 5/5 on the left and 5/5 on the right. L3 (Quads): 5/5 on the left and 5/5 on the right. L4 (Ant tibialis): 5/5 on the left and 5/5 on the right. L5 (EHL) 5/5 on the left and 5/5 on the right. S1 (Gastroc): 5/5 on the left and 5/5 on the right. DTR L4: (Patellar) Left 1 Right 1 S1: (Achilles) Left 1 Right 1 Babinski Downgoing No pathologic clonus. No involuntary movement. Results Reviewed Results Reviewed: MRI lumbar spine 07/25/2023 impression: And posterior fusion hardware spanning L4-5 with bilateral rods pedicular screws as well as disc spacer. Hardware appears intact. Minimal grade 1 anterolisthesis of L3 on 4 with flexion and extension. CT scan lumbar spine 02/19/2024 impression: Posterior fusion from L3-5. Pedicle screws at L3-4. Spacers in the disc spaces at L3-4 and L4-5. Degenerative disc disease and degenerative changes of the lumbar spine most severe above the fusion at L2-3 where there is moderate stenosis nonobstructing stone in the right kidney. Assessment & Plan Assessment & Plan (1) Lumbar radiculopathy: Code(s): M54.16 - Radiculopathy, lumbar region Category: Medical (2) Lumbar spondylosis: Code(s): M47.816 - Spondylosis without myelopathy or radiculopathy, lumbar region Category: Medical Plan Pain Management - Analgesia: The patient reports her prescribed medication is effective for her severe pain. - Activities of Daily Living: Her pain and balance issues restrict her daily activities, noting she can no longer do many things, including work in the kitchen. - Adverse Effects: She denies feeling drowsy or sedated from the medication. - Affect: The patient expressed frustration about her functional limitations, stating, I don't like being restricted anymore. - Aberrant Drug-Related Behaviors: The patient uses her medication sparingly, typically one pill at a time as needed, and has 3 pills left from her previous prescription, indicating appropriate use. - She has Narcan at home. Plan Patient was informed and verbally consented to the use of an ambient scribe for clinic note documentation during this visit. 1. Chronic Pain The patient's chronic pain is partially managed with her current medication, which she uses appropriately and as needed. A refill of hydromorphone 2 mg, 28 pills will be sent to her pharmacy. She was advised to continue using the medication as needed for severe pain rather than on a fixed schedule. The patient confirmed she has Narcan at home. A follow-up appointment is scheduled for two months for reassessment. Discussion Notes I discussed with the patient that while her condition does not have a simple solution, her current medication provides some relief for her severe pain. I will send a refill for 28 pills to her pharmacy, and I advised her to continue using it as needed rather than on a fixed daily schedule. I explained that as long as her current usage pattern continues, a formal pain contract and drug testing are not required. I confirmed she has Narcan available at home. We agreed to a follow-up appointment in two months to re-evaluate her status. Patient Instructions - Continue taking your pain medication only as needed when the pain is severe. - A prescription refill for 28 pills will be sent to your pharmacy, [facility] [address] in [place], [place]. - Keep your Narcan available in case of an emergency. - Please make a follow-up appointment to be seen in two months. Medications: New hydromorphone Partial Fill upon patient request. 2 mg PO Q6H 28 tabs 0RF M54.16 - Radiculopathy, lumbar region Coding Level of Care Code Tele Est Pt Level 3 (47384) Diagnoses Lumbar radiculopathy M54.16 Lumbar spondylosis M47.816
== END 2025-02-09 10:18 | disposition home or self-care (01) ==
PROVIDERS: PCP Internal Medicine; Visit Provider Physician Assistant
DX: M54.16 Radiculopathy, lumbar region (principal); M47.816 Spondylosis without myelopathy or radiculopathy, lumbar region
CPT/HCPCS: 99213

== ENCOUNTER → 2025-02-09 10:04 | Outpatient (BNVA) | payer MEDICARE, OTHER, SELFPAY | PROVIDERS: PCP Internal Medicine; Visit Provider Physician Assistant | DX: M47.816 Spondylosis without myelopathy or radiculopathy, lumbar region (principal); M54.16 Radiculopathy, lumbar region | CPT/HCPCS: 99212 ==

== ENCOUNTER 2025-02-11 13:18 | Outpatient (REF) | payer MEDICARE, OTHER, SELFPAY ==
[2025-02-11 16:29] LABS: Anion Gap 17 (12-20); Blood Urea Nitrogen 31 mg/dL (9-16); Calcium 9.0 mg/dL (8.4-10.2); Carbon Dioxide 20 mmol/L (22-29); Chloride 105 mmol/L (96-108); Estimated Glomerular Filt Rate 34; Potassium 3.6 mmol/L (3.3-5.1); Sodium 138 mmol/L (135-145)
--- OUTSIDE RECORDS SUMMARY | 2025-02-11 18:52 | XMS_ITS | Data Portability ---
Author Organization [place] - [facility], Allergy Address [address] [address] Care Team Providers Care Field Geologist Name Role Phone VENUSRENETTAJana ANN Primary Care [...] normal to inspection. Follow-up in 6 months. Not available 04/27/2024 11:02:21 11/26/2024 11/26/2024 79-year-old female presents for cerumen removal. Cerumen removed bilaterally. Follow-up in 6 months. [email or web address] Not available 11/26/2024 11:56:58 Plan of Treatment [...] : 4 12:49 PM (784.49) Not Available [facility] 4 02:40:30 Impacted cerumen 09012470 Active 2014 Impacted cerumen; Location: bilateral CMS Risk: low risk Cond ition: uncontrol led Not Available [facility] 4 02:40:33 Sensorine ural hearing loss of bilateral ears 588973617 Active 2015 Sensorine ural HL, bilateral ; Note: Date Diagnosed : 11/29/2014 12:59 PM (389.18) ; Start Date : 5 Sensori neural hearing loss, bilateral ; Location: bilateral Note: Date Diagnosed : 04/04/2015 10:39 AM (H90.3) Not Available [facility] 4 02:40:26 Dizziness and giddiness 541938076 Active 2015 Dizziness and giddiness ; Note: Date Diagnosed : 12/05/2015 3:08 PM (R42) Not Available [facility] 4 02:40:24 Impacted cerumen of bilateral ears 70615667289 12013 Active 2016 Impacted cerumen, bilateral ; Note: Date Diagnosed : 10/07/2016 10:53 AM (H61.23) SHANKAR RASMUSSEN PA-C [address] [place] [address], [place], [address] , [facility] - [facility] 5 11:57:00 Impacted cerumen in right ear 79430786227 58144 Active 2020 Impacted cerumen, right ear; Note: Date Diagnosed : 09/27/2020 11:30 AM (H61.21) Not Available [facility] 4 02:40:23 Impacted cerumen in left ear 31594882711 52424 Active 2022 Impacted cerumen, left ear; Note: Date Diagnosed : 04/16/2022 9:38 AM (H61.22) Not Available [facility] 4 02:40:31 Problem Notes None recorded. Procedures Surgical History Date Name Laterality Status Provider Name and Address Organization Details Recorded Time 5 Cerumen removal without microscope bilat completed SHANKAR RASMUSSEN PA-C [address] [place] [address],[address], [address], [facility] - [facility] 04/27/2024 11:02:06 4 Cerumen removal without microscope bilat completed Jose Mosher [facility] 12/29/2023 13:45:22 Imaging Results None recorded. Procedure Notes None recorded. Medical Equipment None Reported. Allergies Allergen ID Allergen Name Allergen Category Reaction Reaction Severity Criticality Documentation Date Start Date Code Code System Note Provider Name and Address Organization Details Recorded Time 48988 perfume environme nt other Not available Not available 07/15/2023 React ion: unkno wn, unspe cifie d;; Not Available [facility] 4 00:59:04 03312 wheat gluten extract food other Not available Not available 07/15/2023 30881 81 RxNorm React ion: unkno wn, unspe cifie d;; Not Available [facility] 4 00:59:04 15757 albuterol medicatio n other Not available Not available 07/15/2023 435 RxNorm React ion: unkno wn, unspe cifie d;; Not Available [facility] 4 00:59:05 85993 latex environme nt,medica tion other Not available Not available 07/15/2023 03308 91 RxNorm React ion: unkno wn, unspe cifie d;; Not Available [facility] 4 00:59:06 33013 indometha veronique medicatio n other Not available Not available 07/15/2023 5781 RxNorm React ion: unkno wn, unspe cifie d;; Not Available [facility] 4 00:59:07 85989 Product containin g penicilli n (product) medicatio n other Not available Not available 07/15/2023 28872 8001 SNOMED React ion: unkno wn, unspe cifie d;; Not Available [facility] 4 00:59:09 48118 cephalexi n medicatio n other Not available Not available 07/15/2023 2231 RxNorm React ion: unkno wn, unspe cifie d;; Not Available [facility] 4 00:59:11 03865 Substance with sulfonami de structure and antibacte rial mechanism of action (substanc e) medicatio n other Not available Not available 07/15/2023 68133 8003 SNOMED React ion: unkno wn, unspe cifie d;; Not Available [facility] 00:59:13 Medications Name Sig Start [...] topical gel 11/26 completed Medicati on ID: [id number] D uration Value: 25 Brand Name: diclofen [...] by mouth 11/26 completed Medicati on ID: [id number] P maiarimariam d By Name: ANA [place] [...] by mouth 07/08 completed Medicati on ID: [id number] P colten d By Name: Sheryl Ochoa [...] mg capsule 11/26 completed Medicati on ID: [id number] D uration Value: 30 Brand Name: nortript yline Se nd Method: E-Prescr ibed Sub s Allowed: subs OK Medic ationGen ericName : nortript yline Not Available Not Available Not Available cyanocoba gladys (vit B-12) 1,000 mcg/mL injection solution 1000 MCG INTRAMUS CULARLY EVERY 4 WEEKS active Not Available Not Available No t Available mirtazapi ne 30 mg tablet 11/26 completed Medicati on ID: [id number] D uration Value: 90 Brand Name: mirtazap [...] mg capsule 11/26 completed Medicati on ID: [id number] D uration Value: 10 Brand Name: gabapent [...] tended release 11/26 completed Medicati on ID: [id number] D uration Value: 30 Brand Name: budesoni [...] mg tablet 11/26 completed Medicati on ID: [id number] D uration Value: 90 Brand Name: pavan abernathy Send Method: E-Prescr ibed Sub s Allowed: subs OK Speci al Instruct ion: TK 1 T PO [facility]D [facility]avan le Not Available Not Available Not Available morphine 15 mg immediate release tablet TAKE 1/2 TABLET BY MOUTH FOUR TIMES A DAY NEEDED FOR PAIN 11/26 completed Not Available Not Available Not Available esomepraz ole magnesium 20 mg capsule,d elayed release 2017 active Medicati on ID: [id number] D uration Value: 90 Brand Name: esomecyndee menjivar Send Method: E-Prescr ibed Sub s Allowed: subs OK [facility]ic[facility] : esomepra zole vikkiu m [...] ion: TK 1 T PO QD [facility]ic[facility] : alprazol am Not Available Not Available Not Available rosuvasta tin 5 mg tablet TAKE 1 TABLET BY MOUTH DAILY active Not Available Not Available No t Available duloxetin e 20 mg capsule,d elayed release 20 MG ORALLY 2 TIMES A DAY active Not Available Not Available No t Available chlorhexi dine gluconate 0.12 % mouthwash 11/26 completed Medicati on ID: [id number] D uration Value: 28 Brand Name: chlorhex [...] Updated DateTime 04/27/2024 152.4 cm 19.7 kg/m2 12048.83 g Marisol Milton [facility] 04/27/2024 10:55:46 Date Recorded Body height Body mass index (BMI) Body weight Provider Name and Address Organization Details Last Updated DateTime 11/26/2024 152.4 cm 20.5 kg/m2 67468.2 g Bea Roy [facility] 11/26/2024 11:28:38 Date Recorded Body height Body mass index (BMI) Body weight Provider Name and Address Organization Details Last Updated DateTime 12/29/2023 152.4 cm 22.5 kg/m2 35877.12 g Anusha Bunch [facility] 12/29/2023 13:25:38 Social History None recorded. Functional Status None recorded. Mental Status None recorded. Family History Nothing Reported. Medical History No medical history recorded. Gynecological HistoryNo gynecological history recorded. Obstetrics History GPAL:G 0 P 0 0 0 0 Past Encounters Encounter ID Performer Location Encounter Start Date Encounter Closed Date Diagnosis/Indication Diagnosis SNOMED-CT Code Diagnosis ICD10 Code Diagnosis IMO Codes Diagnosis Note [id number] JOSE MOSHER PA-C [facility] [address] [address] 12/29/2023 13:17:17 12/29/2023 13:45:24 Impacted cerumen of bilateral ears 2154115309 471842 H61.23 [id number] SHANKAR RASMUSSEN PA-C [facility] [address] [address] 04/27/2024 10:43:24 04/27/2024 11:02:42 Impacted cerumen of bilateral ears 8798909837 838990 H61.23 [id number] SHANKAR RASMUSSEN PA-C [facility] [address] [place] [address] 11/26/2024 11:13:25 11/26/2024 11:53:53 Impacted cerumen of bilateral ears 8397112394 281426 H61.23 Health Concerns Section Related Observation LastModified by Organization Detai ls LastModified Time None Recorded Concern Status LastModified by Organization Details LastModified Time None Recorded Advance Directives Directive None Recorded Payers Insurance Date Sequence Insurance Name Policy Number Policy Oscar Covered Member ID Oscar Member ID Guarantor Name 11/26/2024 2 [facility] INDEMNITY [facility] (MEDICARE SUPPLEMENT) [id number] Shayan Leslie [id number] Lynda Leslie 11/26/2024 1 MEDICARE B-[place]: [facility] [place] [facility] Lynda Leslie [id number] Lynda Leslie Notes Date Note Type Note Provider Name and Address Organization Details Recorded Time 12/29/2023 text/html ROS as noted in the [facility] 78-year-old female presents for evaluation of the ears. Denies change in hearing, otalgia, and otorrhea. No Q-tip use. RAQUEL LAWRENCE MD [address] [place] [address], [phone], [facility] - [facility] 12/29/2023 17:02:11 04/27/2024 text/html ROS as noted in the [facility] 79-year-old female presents for cerumen removal. No acute issues since her last visit. ANA LO MD [address] [place] [address],[address], [address], [facility] - [facility] 04/28/2024 07:28:04 11/26/2024 text/html ROS as noted in the [facility] 79-year-old female presents for cerumen removal. No acute issues since her last visit. RAQUEL LAWRENCE MD [address] [place] [address],[address], [address], [facility] - [facility] 11/26/2024 16:49:22 OBGyn Episode No OBEpisode recorded.
--- OUTSIDE RECORDS SUMMARY | 2025-02-11 18:52 | XMS_ITS | Clinical Summary ---
Author Organization [facility] Address [address] [place] [address] Care Team Providers Care Client Service Executive Name Role Phone Jia Parmar MD Primary Care Provider [phone] Allergies Active Allergy Reactions Criticality Noted Date [...] Encounters Date Type Department Care Team Description 01/24/2025 3:55 PM EST Ancillary [facility] [address] [phone] 01/24/2025 3:30 PM EST Ancillary [facility] [address] [phone] 01/24/2025 3:15 PM EST Office Visit [facility] [address] [phone] Dominick Ulrich PA-C Status post left knee replacement (Primary Dx); Pain of right hip 2025 8:15 AM EST Office Visit [facility] Department of Infectious Disease [address] [phone] Emir Cowan MD Infection associated with internal right knee prosthesis, subsequent encounter (Primary Dx) from Last 3 Months Social History Tobacco [...] Care Team (Late st Contact Info) Description 01/17/2026 9:30 AM EST Office Visit [facility] Department of Infectious Disease [address] [phone] Emir Cowan MD [address] [address] Health Maintenance Due Date Last Done Comments Foot Exam 1955 Lipid Panel 1955 Ophthalmology [...] Additional history exists COVID-19 Vaccine ( season) 2025 10/31/2024, 06/26/2024, 11/20/2023, Additional history exists Advance Care Planning Completed 04/14/2024 Influenza Vaccine Completed 12/02/2024, , 12/02/2023, Additional history exists Hepatitis B Vaccines Aged Out No long er eligible based on patient's age to complete this topic Medical Devices Implanted Type Area Desk Officer Device Identifier Shelf Expiration Date Model / Serial / Lot [id number] Insert Articular 3-4 C-H Std [id number] Knee Net Mold Uhmwpe - [id number] Implanted:Qty: 1 on 03/17/2020 by Tray Duncan MD at [facility] Joint Prosthesis Right: Knee [employer] Z [id number] 04/02/2027 [id number] / / [id number] Oral Implanted:Qty: 3 Oral Tooth Procedures Procedure Name Priority Date/Time Associated Diagnosis Comments ERYTHROCYTE SEDIMENTATION RATE (ESR) Routine 01/29/2025 11:47 AM EST Status post left knee replacement C-REACTIVE PROTEIN Routine 01/29/2025 11 :47 AM EST Status post left knee replacement XR HIP W PELVIS 2 OR 3 VIEWS-RIGHT Routine 01/24/2025 4:00 PM EST Pain of right hip XR KNEE 3 VIEWS-RIGHT Routine 01/24/2025 3:40 PM EST Status post left knee replacement BASIC METABOLIC PANEL Routine 03/19/2020 4:58 AM EST HEMOGLOBIN A1C WITH ESTIMATED AVERAGE GLUCOSE STAT 03/16/2020 8:41 PM EST from Last 3 Months or Most Recently Relevant to Health Maintenance Results * Erythrocyte Sedimentation Rate (ESR) (01/29/2025 11:47 AM EST) Erythrocyte Sediment Rate (ESR) 6 < OR = 30 mm/h [facility] Blood Blood specimen / Unknown 01/29/2025 11:47 AM EST 01/29/2025 11:48 AM EST us Dominick Ulrich PA-C LAB BLOOD ORDERABLES Final Result [email or web address] [address] [place] [phone] * C-REACTIVE PROTEIN (01/29/2025 11:47 AM EST) C-Reactive Protein <3.0 <8.0 mg/L [facility] Blood Blood specimen / Unknown 01/29/2025 11:47 AM EST 01/29/2025 11:48 AM EST Dominick Ulrich PA-C LAB BLOOD ORDERABLES Final Result Performing Organization Address City/[facility]/ZIP Co de Phone Number [employer] [address] [place] [phone] * XR Hip w pelvis 2 or 3 views-Right (01/24/2025 4:00 PM EST) Narrative [facility] - 01/24/2025 4:00 PM EST This exam was performed in office at [facility] and images reviewed by orthopedic provider. Any findings are documented within ambulatory encounter note on date of service. Dominick Ulrich PA-C IMG DIAGNOSTIC IMAGING ORD ERABLES Final Result Performing Organization Address [facility] de Phone Number OA * XR Knee 3 views-Right (01/24/2025 3:40 PM EST) Narrative [facility] - 01/24/2025 3:40 PM EST This exam was performed in office at [facility] and images reviewed by orthopedic provider. Any findings are documented within ambulatory encounter note on date of service. Dominick Ulrich PA-C IMG DIAGNOSTIC IMAGING ORD ERABLES Final Result Performing Organization Address [facility] Co de Phone Number [facility] * (ABNORMAL) Basic Metabolic Panel (AM) (03/19/2020 [...] Maintenance Insurance MEDICARE PART A & B [facility] MEDICARE PART A & B [facility] [place] [address] MEDICARE PART A & B [employer] Advance Directives Documents on File Type Date Recorded Patient Crocheter Hand Expl anation Advance Directive-Scan 04/14/2024 RX AP PROVAL TO ID Advance Directive-Scan 07/01/2022 APPRO VAHE OF MEDICATION * Full Code (Latest Code Status on File) Date Activated Date Inactivated Comments 03/16/2020 7:24 PM Care Teams Client Service Executive Relationship Specialty Start Date End Date Jia Parmar MD [address] [facility] [place] [address] PCP - General 01/24/25
--- OUTSIDE RECORDS SUMMARY | 2025-02-11 18:52 | XMS_ITS | Clinical Summary ---
Author Organization [employer] [facility] Prior to 07/31/[address] [place] [address] Care Team Providers Care Collection Systems Foreman Name Role Phone Jia Parmar MD Primary Care Provider [phone] Social History Tobacco Use Types Packs/Day Years Used Date Smoking Tobacco: Never Assessed Sex and Gender Information Value Date Recorded Sex Assigned at Not on file Gender Identity Not on file Sexual Orientation Not on file Job Start Date Occupation Industry Not on file Not on file Not on file Plan of Treatment Health Maintenance Due Date Last Done Comments COVID-19 Vaccine (#1) 1945 Depression Screening 1957 [...] age to complete this topic Care Teams Collection Systems Foreman Relationship Specialty Start Date End Date Jia Parmar MD [address] [place] [phone] PCP - General Creative Art Therapist 12/09/18
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
--- OUTSIDE RECORDS SUMMARY | 2025-02-11 18:52 | XMS_ITS | Clinical Summary ---
Author Organization [facility] Address [address] [place] [address] Phone Care Team Providers Care Buffer Automatic Name Role Phone Jia Paramr MD Primary Care Provider [phone] Allergies Active Allergy Reactions Criticality Noted Date [...] mouth 1 (one) time each day. Active Surgical History Surgery Date Site/Laterality Comments HYSTERECTOMY [...] (Lipid Panel) 02/03/2022 Falls Risk Assessment 02/03/2022 Medicare Annual Wellness Visit 02/03/2022 Social [...] Procedure Name Priority Date/Time Associated Diagnosis Comments COMPREHENSIVE METABOLIC PANEL STAT 10/09/2024 11:40 AM EDT [facility] DEXA AXIAL SKELETON Routine 11/19/2022 11:36 AM EDT Other specified disorders of bone density and structure, other site from Last 3 Months or Most Recently Relevant to Health Maintenance Results * (ABNORMAL) Comprehensive Metabolic Panel (CMP) (10/09/2024 11:40 AM EDT) Sodium 139 133 - 145 mmol/L LAB CHEMISTRY METHOD 10/09/2024 12:16 PM EDT [facility] Potassium 4.4 3.5 - 5.5 mmol/L LAB CHEMISTRY METHOD 10/09/2024 12:16 PM EDT [facility] Chloride 109 96 - 110 mmol/L LAB CHEMISTRY METHOD 10/09/2024 12:16 PM [facility] CO2 26 21 - 32 mmol/L LAB CHEMISTRY METHOD 10/09/2024 12:16 PM [facility] Anion Gap 4 3 - 11 LAB CHEMISTRY METHOD 10/09/2024 12:16 PM [facility] Glucose 129(H) 70 - 100 mg/dL LAB CHEMISTRY METHOD 10/09/2024 12:16 PM [facility] BUN 31(H) 5 - 25 mg/dL LAB CHEMISTRY METHOD 10/09/2024 12:16 PM [facility] Creatinine 1.22(H) 0.50 - 1.10 mg/dL LAB CHEMISTRY METHOD 10/09/2024 12:16 PM [facility] eGFR 45(L) >=60 mL/min/1. 73m2 LAB CHEMISTRY METHOD 10/09/2024 12:16 PM [facility] Comment:Calculation based on the Chronic Kidney Disease Epidemiology Collaboration (CKD-EPI) equation refit without adjustment for race. BUN/Creatinine Ratio 25.4 LAB CHEMISTRY METHOD 10/09/2024 12:16 PM [facility] Calcium 9.2 8.5 - 10.5 mg/dL LAB CHEMISTRY METHOD 10/09/2024 12:16 [facility] AST (SGOT) 31 10 - 42 unit/L LAB CHEMISTRY METHOD 10/09/2024 12:16 PM [facility] ALT (SGPT) 41 10 - 60 unit/L LAB CHEMISTRY METHOD 10/09/2024 12:16 PM [facility] Alkaline Phosphatase 65 42 - 121 unit/L LAB CHEMISTRY METHOD 10/09/2024 12:16 PM [facility] Total Protein 6.2 6.0 - 8.0 g/dL LAB CHEMISTRY METHOD 10/09/2024 12:16 PM [facility] Albumin 3.6 3.2 - 5.0 g/dL LAB CHEMISTRY METHOD 10/09/2024 12:16 PM EDT [facility] Total Bilirubin 0.5 0.0 - 1.4 mg/dL LAB CHEMISTRY METHOD 10/09/2024 12:16 PM EDT [facility] Blood Venous blood specimen / Unknown Venipuncture / Unknown 10/09/2024 11:40 AM EDT 10/09/2024 11:47 AM EDT us Fede Ontiveros MD LAB BLOOD ORDERABLES Final R esult [facility] [address] [place] [address], * LETICIA DEXA AXIAL SKELETON (11/19/2022 11:36 AM EDT) Anatomical Region Laterality Modality Mammography 11/19/2022 8:53 AM EDT Narrative 11/19/2022 11:36 AM EDT [facility] Diagnostic Imaging Department [address] [place] [address] 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
--- OUTSIDE RECORDS SUMMARY | 2025-02-11 18:52 | XMS_ITS | Continuity of Care Document ---
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 Name Role Phone ANN REGAN Primary Care Provider [phone] Assessment Encounter Date Assessment Date Assessment LastModified [...] : 4 12:49 PM (784.49) Not Available [facility] 4 02:40:30 Impacted cerumen 68910097 Active 2014 Impacted cerumen; Location: bilateral CMS Risk: low risk Cond ition: uncontrol led Not Available [facility] 4 02:40:33 Sensorine ural hearing loss of bilateral ears 843776299 Active 2015 Sensorine ural HL, bilateral ; Note: Date Diagnosed : 11/29/2014 12:59 PM (389.18) ; Start Date : 5 Sensori neural hearing loss, bilateral ; Location: bilateral Note: Date Diagnosed : 04/04/2015 10:39 AM (H90.3) Not Available [facility] 4 02:40:26 Dizziness and giddiness 844627846 Active 2015 Dizziness and giddiness ; Note: Date Diagnosed : 12/05/2015 3:08 PM (R42) Not Available [facility] 4 02:40:24 Impacted cerumen of bilateral ears 80169187342 88765 Active 2016 Impacted cerumen, bilateral ; Note: Date Diagnosed : 10/07/2016 10:53 AM (H61.23) SHANKAR RASMUSSEN PA-C [address] [facility],[place] [address], [place], [address] , [facility] - [facility] 5 11:57:00 Impacted cerumen in right ear 96245590518 89974 Active 2020 Impacted cerumen, right ear; Note: Date Diagnosed : 09/27/2020 11:30 AM (H61.21) Not Available [facility] 4 02:40:23 Impacted cerumen in left ear 72824476438 30282 Active 2022 Impacted cerumen, left ear; Note: Date Diagnosed : 04/16/2022 9:38 AM (H61.22) Not Available [facility] 4 02:40:31 Problem Notes None recorded. Procedures Surgical History Date Name Laterality Status Provider Name and Address Organization Details Recorded Time 5 Cerumen removal without microscope bilat completed SHANKAR RASMUSSEN PA-C [address] [facility] [address], [place], [address], [facility] - [facility] 04/27/2024 11:02:06 4 Cerumen removal without microscope bilat completed Suly Tobin [place] - [facility] 12/29/2023 13:45:22 Imaging Results None recorded. Procedure Notes None recorded. Medical Equipment None Reported. Allergies Allergen ID Allergen Name Allergen Category Reaction Reaction Severity Criticality Documentation Date Start Date Code Code System Note Provider Name and Address Organization Details Recorded Time 41354 perfume environme nt other Not available Not available 07/15/2023 React ion: unkno wn, unspe cifie d;; Not Available [facility] 4 00:59:04 31700 wheat gluten extract food other Not available Not available 07/15/2023 71550 81 RxNorm React ion: unkno wn, unspe cifie d;; Not Available [facility] 4 00:59:04 85604 albuterol medicatio n other Not available Not available 07/15/2023 435 RxNorm React ion: unkno wn, unspe cifie d;; Not Available [facility] 4 00:59:05 48359 latex environme nt,medica tion other Not available Not available 07/15/2023 28350 91 RxNorm React ion: unkno wn, unspe cifie d;; Not Available [facility] 4 00:59:06 66642 indometha veronique medicatio n other Not available Not available 07/15/2023 5781 RxNorm React ion: unkno wn, unspe cifie d;; Not Available [facility] 4 00:59:07 60584 Product containin g penicilli n (product) medicatio n other Not available Not available 07/15/2023 59279 8001 SNOMED React ion: unkno wn, unspe cifie d;; Not Available [facility] 4 00:59:09 19561 cephalexi n medicatio n other Not available Not available 07/15/2023 2231 RxNorm React ion: unkno wn, unspe cifie d;; Not Available [facility] 4 00:59:11 27297 Substance with sulfonami de structure and antibacte rial mechanism of action (substanc e) medicatio n other Not available Not available 07/15/2023 99261 8003 SNOMED React ion: unkno wn, unspe cifie d;; Not Available [facility] 4 00:59:13 Medications Name Sig Start Date [...] topical gel 11/26 completed Medicati on ID: [id number] D uration Value: 25 Brand Name: diclofen [...] by mouth 11/26 completed Medicati on ID: [id number] Isela mooney By Name: ANA Carolina nd [...] by mouth 07/08 completed Medicati on ID: [id number] P maiarimariam d By Name: Sheryl Ochoa [...] mg capsule 11/26 completed Medicati on ID: [id number] D uration Value: 30 Brand Name: nortript yline Se nd Method: E-Prescr ibed Sub s Allowed: subs OK Medic ationGen ericName : nortript yline Not Available Not Available Not Available cyanocoba gladys (vit B-12) 1,000 mcg/mL injection solution 1000 MCG INTRAMUS CULARLY EVERY 4 WEEKS active Not Available Not Available No t Available mirtazapi ne 30 mg tablet 11/26 completed Medicati on ID: [id number] D uration Value: 90 Brand Name: mirtazap [...] mg capsule 11/26 completed Medicati on ID: [id number] D uration Value: 10 Brand Name: gabapent [...] tended release 11/26 completed Medicati on ID: [id number] D uration Value: 30 Brand Name: budjessieoni [...] mg tablet 11/26 completed Medicati on ID: [id number] D uration Value: 90 Brand Name: ropiniro [...] elayed release 2017 active Medicati on ID: [id number] D uration Value: 90 Brand Name: asad menjivar Send Method: E-Prescr ibed Sub s Allowed: subs OK [facility] : esomepra jocy florezu m Not [...] ion: TK 1 T PO QD Medic [facility] ericName : alprazol am Not Available Not Available Not Available rosuvasta tin 5 mg tablet TAKE 1 TABLET BY MOUTH DAILY active Not Available Not Available No t Available duloxetin e 20 mg capsule,d elayed release 20 MG ORALLY 2 TIMES A DAY active Not Available Not Available No t Available chlorhexi dine gluconate 0.12 % mouthwash 11/26 completed Medicati on ID: [id number] D uration Value: 28 Brand Name: chlorhex idine gluconat e Send Method: E-Prescr ibed Sub s Allowed: subs OK [facility] : chlorhex idine gluconat e Not [...] Updated DateTime 11/26/2024 152.4 cm 20.5 kg/m2 73545.2 g Bea Jimenez [facility] 11/26/2024 11:28:38 Social History None recorded. Functional Status None recorded. Mental Status None recorded. Family History Nothing Reported. Medical History No medical history recorded. Gynecological HistoryNo gynecological history recorded. Obstetrics History GPAL:G 0 P 0 0 0 0 Past Encounters Encounter ID Performer Location Encounter Start Date Encounter Closed Date Diagnosis/Indication Diagnosis SNOMED-CT Code Diagnosis ICD10 Code Diagnosis IMO Codes Diagnosis Note [id number] SHANKAR RASMUSSEN PA-C [facility] [address] [address] 11/26/2024 11:13:25 11/26/2024 11:53:53 Impacted cerumen of bilateral ears [id number] 354321 H61.23 Health Concerns Section Related Observation LastModified by Organization Detai ls LastModified Time None Recorded Concern Status LastModified by Organization Details LastModified Time None Recorded Payers Encounter Date Sequence Insurance Name Policy Number Policy Oscar Covered Member ID Oscar Member ID Guarantor Name 11/26/2024 2 [facility] [employer] (MEDICARE SUPPLEMENT) [id number] Shayan Leslie [id number] Lynda Leslie 11/26/2024 1 MEDICARE B-[place]: [facility] Organizer SERVICES Lynda Leslie [id number] Lynda Leslie Notes Date Note Type Note Provider Name and Address Organization Details Recorded Time 11/26/2024 text/html ROS as noted in the HPI 79-year-old female presents for cerumen removal. No acute issues since her last visit. RAQUEL LAWRENCE MD [address] [place] [address], [address], [facility] - [facility] 11/26/2024 16:49:22 OBGyn Episode No OBEpisode recorded.
--- OUTSIDE RECORDS SUMMARY | 2025-02-11 18:52 | XMS_ITS | Patient Health Record ---
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 Role Phone Jia Parmar MD Primary Care Provider Melina Dunne Unavailable [phone] Allergies Allergen (clinical drug ingredient) Drug/Non Drug [...] Polyneuropathy due to type 2 diabetes mellitus (325436248) Type 2 diabetes mellitus with diabetic polyneuropathy (E11.42) Active confirmed Vital Signs Blood pressure diastolic 65 mm Hg 12/23/2024 Height 5 ft 0 in in 12/23/2024 Blood pressure systolic 128 mm Hg 12/23/2024 Weight 111 lbs 12/23/2024 BMI 21.68 kg/m2 12/23/2024 Procedures Procedure Date Ordered Date Performed Result Body Sit e 46699-XLLJTGN NAIL, 6 OR MORE 02/18/2024 N/A 24766-TQYI SKIN LESIONS, OVER 4 02/18/2024 N/A 41102-MIFYCUF NAIL, 6 OR MORE 06/24/2024 N/A 13870-NXTU SKIN LESIONS, OVER 4 06/24/2024 N/A 25014-NSGPEOO NAIL, 6 OR MORE 09/22/2024 N/A 78633-HDYG SKIN LESIONS, OVER 4 09/22/2024 N/A 60865-TZWKXGP NAIL, 6 OR MORE 12/23/2024 N/A 48845-WUQD SKIN LESIONS, OVER 4 12/23/2024 N/A Encounters Encounter Location Date Provider Diagnosis [address] [address] 02/18/2024 Melina Booth Type 2 diabetes mellitus with diabetic polyneuropathy E11.42 ; Tinea unguium B35.1 and Xerosis of skin L85.[address] [address] 06/24/2024 Melina Booth Type 2 diabetes mellitus with diabetic polyneuropathy E11.42 ; Tinea unguium B35.1 ; Other hammer toe(s) (acquired), right foot M20.41 and Other hammer toe(s) (acquired), left foot M20.[address] [address] 09/22/2024 Melina Booth Type 2 diabetes mellitus with diabetic polyneuropathy E11.42 and Tinea unguium B35.[address] [address] 12/23/2024 Melina Booth Type 2 diabetes mellitus with diabetic polyneuropathy E11.42 and Tinea unguium B35.1 [facility] [place] [address] [place] [address] 06/24/2024 Melina Booth Assessments Encounter Date Diagnosis [...] X ray : Foot, right 3V 08/04/2017 65369-NRBEVIN NAIL, 6 OR MORE 10/27/2017 21975-KGPJAZW NAIL, 6 OR MORE 08/04/2017 18283-CDYZUBT NAIL, 6 OR MORE 05/12/2017 30380-UKPQNYB NAIL, 6 OR MORE 12/23/2024 02482-PABHFVK NAIL, 6 OR MORE 06/24/2024 76178-ZNDMWQC NAIL, 6 OR MORE 09/22/2024 80178-OTGOTUX NAIL, 6 OR MORE 02/18/2024 47272-HQYEZFU NAIL, 6 OR MORE 2018 05489-VUZRCSR NAIL, 6 OR MORE 03/10/2017 97193-TIGWWBD NAIL, 6 OR MORE 01/06/2017 53505-SCIWDXC NAIL, 6 OR MORE 10/23/2016 44203-RXMVIRA NAIL, 6 OR MORE 07/25/2016 53454-LKJJXVO NAIL, 6 OR MORE 05/10/2016 09244-TAZQJPY NAIL, 6 OR MORE 02/14/2016 91853-YBHOSAI NAIL, 6 OR MORE 11/20/2015 38488-VOEFCRR NAIL, 6 OR MORE 07/05/2015 79845-Bksfbzxn Plate 07/27/2015 11849-Ywicijiq Plate 05/29/2016 16003-Gxgqqlsm Plate 06/10/2016 53506- Debride <25 sq cm 06/10/2016 45514- Debride <25 sq cm 09/25/2016 67966- Debride <25 sq cm 10/23/2016 52603- Debride <25 sq cm 08/14/2015 22813-DEMQ SKIN LESIONS, OVER 4 07/05/19 16 04781-PVEX SKIN LESIONS, OVER 4 11/20/19 16 35637-UWFW SKIN LESIONS, OVER 4 02/14/20 16 55003-DXFM SKIN LESIONS, OVER 4 05/11/19 83019-BGFX SKIN LESIONS, OVER 4 10/24/19 29359-BYDA SKIN LESIONS, OVER 4 01/07/20 89173-OUCX SKIN LESIONS, OVER 4 05/13/19 18 84388-ZVXY SKIN LESIONS, OVER 4 03/10/19 18 76965-WXQQ SKIN LESIONS, OVER 4 02/13/20 80651-CUTV SKIN LESIONS, OVER 4 05/15/19 53611-IOSD SKIN LESIONS, OVER 4 02/18/20 19515-MYAO SKIN LESIONS, OVER 4 09/23/19 46879-FXPW SKIN LESIONS, OVER 4 06/25/19 96248-GMFL SKIN LESIONS, OVER 4 12/24/19 46685-MIYH SKIN LESIONS, OVER 4 08/05/19 53341-VZYX SKIN LESIONS, OVER 4 01/13/20 18 64851-AFDW SKIN LESIONS, OVER 4 10/28/19 18 11403-QKZA SKIN LESIONS, OVER 4 04/13/19 61048-VIUR SKIN LESIONS, OVER 4 07/14/19 19 40543-EGUS SKIN LESIONS, OVER 4 10/13/19 19 42109-DJNR SKIN LESIONS, OVER 4 01/12/20 89779-TKHF SKIN LESIONS, OVER 4 04/12/19 75011-CAWM SKIN LESIONS, OVER 4 07/14/19 68639-GBRU SKIN LESIONS, OVER 4 10/18/19 72990-PJQR SKIN LESIONS, OVER 4 01/17/20 80514-QIWY SKIN LESIONS, OVER 4 04/24/19 10522-FXJB SKIN LESIONS, OVER 4 07/25/19 57908-EINU SKIN LESIONS, OVER 4 11/21/19 70914-MOEM SKIN LESIONS, 2 TO 4 07/26/19 17 , Y7972-DYFIP/INJECT, JOINT/BURSA 0 04/13/2018 09587, J0702- Neuroma/Injection 11/20/19 16 68572-Wgfqgcyvf, Toes 05/10/2016 18601-Khlqrduzl, Toes 05/15/2016 25812-Ocfqhinal, Toes 03/12/2023 Next Appt Details Provider Name:Melina Muñoz trenton, 03/30/2025 02:45:00 PM, [address] [facility], [place], [address], Insurance Providers Payer Name Payer Address Payer Phone Subscriber Number Group Number Insured Name Patient Relationship to Insured Coverage Start Date Coverage End Date Medicare National [employer] [address] [place] [address] [phone] [id number] Lynda Leslie Self - patient is the insured [employer] ([employer]) [address] [place] [address] [id number] Shayan Leslie Spouse - patient is [...] couldn't walk 12/03/[facility] [place] [facility] after sx ba ck blood clot / c.diff 03/2020 [facility] X 3 Days, Pt sstates she fell, dx: c oncusion 05/18/2017
== END 2025-02-11 13:19 | disposition home or self-care (01) ==
LOC: HO.HMGCLDS 13:18
PROVIDERS: PCP Internal Medicine; Visit Provider Internal Medicine
DX: N18.30 Chronic kidney disease, stage 3 unspecified (principal)
CPT/HCPCS: 36415; 80048